=== PATIENT | female | born 2000 | race Caucasian/White ===

== ENCOUNTER → 2022-10-18 | Outpatient (CLI) | payer BC, MEDICAID, SELFPAY ==
[2022-10-18 15:29] LABS: hCG Titer Quant., Serum 391 mIU/mL (1-3)
== END | disposition home or self-care (01) ==
PROVIDERS: PCP Nurse Practitioner Family; Visit Provider Obstetrics & Gynecology
DX: N91.2 Amenorrhea, unspecified (principal)
CPT/HCPCS: 84702

== ENCOUNTER → 2025-01-28 | Outpatient (CLI) | payer MEDICAID, SELFPAY ==
--- NOTE | 2025-01-28 08:52 | US_ITS ---
PROCEDURE: TRANSVAGINAL W/PREG US 01/28/2025 REASON FOR EXAM: DATING TECHNIQUE: High resolution obstetric ultrasound performed using a 2D transducer. Standard views obtained, including biometry, anatomy survey, and Doppler studies. FINDINGS Transvaginal imaging Single live intrauterine measuring 9 weeks and 3 days by gestational sac and 8 weeks and 6 days by crown-rump length. heart tones 177 beats per minute. Yolk sac is present 6 mm No evidence of miri sac hemorrhage. The uterus measures 11 x 8.4 x 5.8 cm and appears within limits. The cervix appears closed. The right ovary measures 2.8 x 2.1 x 1.9 cm, and the left ovary measures 3.3 x 2.4 x 2.3 cm. The ovaries appear within limits. No adnexal mass identified. No free fluid seen. US/Transvaginal w/Preg US IMPRESSION: Single live intrauterine with heart tones of 177 beats per brian te. Estimated gestational age by ultrasound 9 weeks and 1 day, [facility] 09/01/2025. Est imated gestational age by LMP 9 weeks and 0 days, [facility] 09/02/2025. Reading Location: [id number]
[2025-01-28 10:43] LABS: hCG Titer Quant., Serum 117828 mIU/mL (<9 non-preg)
== END | disposition home or self-care (01) ==
PROVIDERS: PCP Nurse Practitioner Family; Referring Provider Advanced Practice Midwife; Visit Provider Advanced Practice Midwife
DX: O09.299 Supervision of pregnancy with other poor reproductive or obstetric history, unspecified trimester (principal); O99.891 Other specified diseases and conditions complicating pregnancy; N91.2 Amenorrhea, unspecified; Z3A.00 Weeks of gestation of pregnancy not specified
CPT/HCPCS: 36415; 76817; 84702

== ENCOUNTER → 2025-02-01 | Outpatient (CLI) | payer MEDICAID, SELFPAY ==
[2025-02-03 21:07] LABS: Chlamydia By Nucleic Acid AMP Negative (Negative); Gonococcus By Nucleic Acid AMP Negative (Negative)
[2025-02-04 16:54] LABS: HPV Reflexed? NOT INDICATED
== END | disposition home or self-care (01) ==
LOC: LABSPEC 17:06
PROVIDERS: PCP Nurse Practitioner Family; Referring Provider Advanced Practice Midwife; Visit Provider Advanced Practice Midwife
DX: O09.90 Supervision of high risk pregnancy, unspecified, unspecified trimester (principal); Z3A.00 Weeks of gestation of pregnancy not specified; Z12.4 Encounter for screening for malignant neoplasm of cervix
CPT/HCPCS: 87086; 87491; 87591; 88175; G0145

== ENCOUNTER → 2025-02-24 | Outpatient (CLI) | payer MEDICAID, SELFPAY ==
[2025-02-24 15:59] LABS: Absolute Lymphocyte Count 1.15 X10^3/uL (0.83-4.51); Absolute Neutrophil Count 5.8 X10^3/uL (2.0-7.7); Basophil# 0.04 X10^3/uL; Basophil% 0.5 % (0-1); Eosinophil# 0.19 X10^3/uL; Eosinophils% 2.4 % (0-5); Hemoglobin 11.7 g/dL (12.0-15.0); Lymphocyte # 1.15 X10^3/ul (0.83-4.51); Lymphocyte % 14.7 % (19-41); Mean Corp Hgb Conc 33.4 g/dL (32-36); Mean Corpuscular Volume 83.7 fL (81-99); Mean Platelet Vol. 10.7 fl (6.2-12.0); Monocyte# 0.62 X10^3/uL; Monocyte% 7.9 % (0-10); NRBC Flagged by Analyzer 0 % (0-5); Neutrophil # 5.77 X10^3/uL (2.7-7.7); Platelet Count 207 K/mm3 (150-450); RBC Distribution Width CV 14.5 % (11.6-14.6); RBC Distribution Width SD 44.3 fl (35.1-43.9); Red Blood Count 4.18 M/mm3 (4.2-5.4); White Blood Count 7.8 K/mm3 (4.4-11.0)
[2025-02-24 16:54] LABS: HIV Nonreactive (Nonreactive); Hepatitis B Surface Antigen Nonreactive (Nonreactive); Hepatitis C Antibody Nonreactive (Nonreactive); Rubella IgG REAC (Nonreactive); Syphilis Antibodies Nonreactive (Nonreactive)
== END | disposition home or self-care (01) ==
PROVIDERS: Advanced Practice Midwife; PCP Nurse Practitioner Family; Referring Provider Obstetrics & Gynecology; Visit Provider Obstetrics & Gynecology
DX: O09.90 Supervision of high risk pregnancy, unspecified, unspecified trimester (principal); Z3A.00 Weeks of gestation of pregnancy not specified
CPT/HCPCS: 36415; 85025; 86703; 86762; 86780; 86803; 86850; 86900; 86901; 87340

== ENCOUNTER 2025-05-07 18:10 | Outpatient (CLI) | payer MEDICAID, SELFPAY ==
--- OUTSIDE RECORDS SUMMARY | 2025-05-07 18:17 | XMS RPT_ITS | CCD ---
Author Organization [facility] Care Team Providers Care Performance Improvement Manager Name Role Phone Keara Mckenzie Unavailable Unavailable None, No PCP Unavailable Unavailable Valencia Khanna Unavailable Unavailable Unavailable Radha Cary Unavailable Keara Mckenzie Unavailable Radha Cary Unavailable Unavailable William Cerda Unavailable Unavailrabia e Keara Mckenzie Unavailable Emily Claros Unavailable Unavailable Jose Delgado Unavailable Hudec, Stephanie Unavailable Unavailable Moomaw, Taqueria I Unavailable Unavailable Hudcharli, Stephanie Attending Unavailable BRANDY CARY RADHA MARY Primary Care Unavailable BRANDY CARY RADHA MARY Primary Care Unavailable DO WILLIAM CERDA Attending Unava ilable BRANDY CARYIDI MARY Primary Care Unavailable Jonah, Dr. Keara Damon Attending Unavailabl e Jonah, Dr. Keara Damon Referring Unavailabl e Buster, Ms. Diaz Attending Unavail able BRANDY CARY RADHA MARY Primary Care Unavailable Hudec, Stephanie Attending Unavailable BRANDY CARY RADHA MARY Primary Care Unavailable Moomaw, MrSirisha Meng Victor M Attending Unavailable BRANDY CARY RADHA MARY Primary Care Unavailable Mankelsie, Ms. Diaz Attending Unavail able BRANDY CARY RADHA MARY Primary Care Unavailable Luis Daniel MANAGER SECURITY-Radha NAVA Primary Care Provider Radha Cary Primary Care Unavailable Radha Cary Attending Unavailable Radha Cary Referring Unavailable Radha Cary Primary Care Unavailable DO KEARA MCKENZIE Attending Unavailable DO KEARA MCKENZIE Referring Unavailable Danny, Dr. Jose Olson Attending Unavai hawa Delgado, Dr. Jose Olson Referring Unavai labadán Cary, Radha Primary Care Unavailable Cary, Radha Primary Care Unavailable Danny, Dr. Jose Olson Referring Unavai lable Danny, Dr. Jose Olson Attending Unavai lable Luis Daniel, Radha Primary Care Unavailable Danny, Dr. Jose Olson Attending Unavai labadán Delgado, Dr. Jose Olson Referring Unavai labadán Cary, Radha Primary Care Unavailable Danny, Dr. Jose Olson Attending Unavai labadán Cary, Radha Primary Care Unavailable Danny, Dr. Jose Olson Attending Unavai lable Cary, Radha Primary Care Unavailable JONAH, DO KEARA DAMON Attending Unavailable JONAH, DO KEARA DAMON Referring Unavailable Cary, Radha Primary Care Unavailable Self, Referral Referring Unavailable Radha Cary Attending Unavailable Cary, Radha Referring Unavailable Cary, Radha Primary Care Unavailable Cary, Radha Attending Unavailable Cary, Radha Primary Care Unavailable Radha Cary Attending Unavailable Forrest Mohr MD Primary Care Provider [phone] Luis Daniel MANAGER SECURITY-CORE LAYER MACHINE OPERATOR, Radha Primary Care Provider 1( [phone] Forrest Mohr MD Unavailable [phone] Forrest Mohr MD Primary Care Provider Luis Daniel CORE LAYER MACHINE OPERATOR, Radha Primary Care Provider Forrest Mohr MD Unavailable [phone] Forrest Mohr MD Primary Care Provider Luis Daniel PILE HEADER-C, Radha Primary Care Provider Luis Daniel PILE HEADER-C, Radha Referring Provider Magen MONROE, Dr. Robledo Attending Provider Tamar Chan RN Attending Provider UnavailMariajose Sears CNM Attending Provider [phone] Mariajose Ayala CNM Referring Provider [phone] FORREST MOHR Primary Care Unavailable FORREST MOHR Attending Unavailable TAVALLAEE, FORREST M Referring Unavailable TAVALLAEE, FORREST M Primary Care Unavailable TAVALLAEE, FORREST M Primary Care Unavailable FILEMON RUIZ Attending Unavailable LISAE, FORREST M Primary Care Unavailable JOSE DELGADO Attending Unavailable LISAE, FORREST M Primary Care Unavailable RUPADESTINY LORENZA M Attending Unavailable LISAE, FORREST M Primary Care Unavailable Dr. Colleen Villalobos DO Attending Provider Dr. Colleen Villalobos DO Referring Provider Aisha Mendoza Attending Provider COLLEEN ROSALES Referring Unavailab COLLEEN Monge Attending Unavailab le LUIS DANIEL, RADHA K Primary Care Unavailable Cary, Radha Primary Care Unavailable Cary, Radha Referring Unavailable Meena Us Attending Unavailable Cary, Radha Primary Care Unavailable Cary, Radha Referring Unavailable Mariajose Ayala Attending Unavailable Cary, Radha Referring Unavailable Cary, Radha Primary Care Unavailable Colleen Villalobos Attending Unavailabl e Cary, Radha Referring Unavailable Cary, Radha Primary Care Unavailable Vande Colleen Dillard Attending Unavailabl e Cary, Radha Referring Unavailable Cary, Radha Primary Care Unavailable Aisha Vitale Attending Unavailable Mariajose Ayala Referring Unavailable Cary, Radha Primary Care Unavailable Mariajose Ayala Attending Unavailable Mariajose Ayala Referring Unavailable Cary, Radha Primary Care Unavailable Mariajose Ayala Attending Unavailable Mariajose Ayala Referring Unavailable Cary, Radha Primary Care Unavailable Mariajose Ayala Attending Unavailable Cary, Radha Primary Care Unavailable Colleen Villalobos Attending Unavailabl e Colleen Villalobos Referring Unavailabl Mariajose Kathleen Attending Unavailable Cary, Radha Referring Unavailable Cary, Radha Primary Care Unavailable Cary, Radha Primary Care Unavailable Tamar Chan Attending Unavailable Medications Current Medications Medication Drug Class(es) Dates Sig (Normalized) Sig (Original) [id number] 200 actuat albuterol 0.09 mg/actuat metered dose inhaler (10 sources) beta2-Adrenergic Agonist Start: 02-24-2025 Albuterol Sulfate (Ventolin Hfa) 90 mcg/actuation HFA aerosol inhaler Active 2 NMA INHALATION EVERY 4-6 HOURS as needed for shortness of breath or wheezing 6.7 0 February 24, 2025 12:00am take 1 puff(s) by in halation every six hours for wheezing albuterol sulfate (Proair Digihaler) 90 mcg/actuation aero powdr breath act w/sensor inhaler Inhale 1 puff every 6 hours if needed for wheezing. Active amoxicillin 875 mg / clavulanate 125 mg oral tablet (4 sources) Penicillin-class Antibacterial Start: 01-30-2024 End: 02-09-2024 take 1 tablet by mouth every twelve hours amoxicillin-pot clavulanate (Augmentin) 875-125 mg tablet Indications: Colitis Take 1 tablet by mouth every 12 hours for 10 days. 20 tablet 01/30/2024 02/09/2024 Active Start: 08-23-2022 End: 09-01-2022 take 1 tablet by mouth every twelve hours amoxicillin-clavulanate 875 mg-125 mg or al tablet ; 1 tab(s) orally every 12 hours Quantity: 20 Refills: 0 Ordered: 23-Aug-2022 Emily Claros Start: 23-Aug-2022 End: 01-Sep-2022 Generic Substitution Allowed Comments: Finish all this medication unless otherwise directed by prescriber.Take with food or milk. Comment on above: Finish all this medi cation unless otherwise directed by prescriber.Take with food or milk. calcium chloride 0.0014 meq/ml / potassium chloride 0.004 meq/ml / sodium chloride 0.103 meq/ml / sodium lactate 0.028 meq/ml injectable solution (1 source) Start: take 20 mL intravenously every hour 20 mL/hr, intravenous, Continuous, Starting on [place] 03/05/24 at 0745, Preprocedure cephalexin 500 mg oral capsule (4 sources) Cephalosporin Antibacterial Start: End: take 1 capsule by mouth four times daily cephalexin (Keflex) 500 mg capsule Indications: Urinary tract infection without hematuria, site unspecified Take 1 capsule (500 mg) by mouth 4 times a day for 5 days. 20 capsule 01/31/2025 02/05/2025 Active Start: 07-06-2022 End: 07-12-2022 take 1 tablet by mouth twice daily cephalexin 500 mg oral tablet ; 1 tab(s) orally 2 times a day Quantity: 14 Refills: 0 Ordered: 05-Jul-2022 William Cerda Start: 05-Jul-2022 End: 11-Jul-2022 Generic Substitution Allowed Comments: Finish all this medication unless otherwise directed by prescriber. Comment on above: Finish all this medi cation unless otherwise directed by prescriber. dicyclomine hydrochloride 20 mg oral tablet (5 sources) Anticholinergic Start: 01-30-20 24 End: 02-09-20 24 take 1 tablet by mouth four times daily before mealtime dicyclomine (Bentyl) 20 mg tablet Indications: Colitis Take 1 tablet (20 mg) by mouth 4 times a day before meals for 10 days. 40 tablet 01/30/2024 02/09/2024 Active Start: 07-06-2022 End: 08-04-2022 take 1 tablet by mouth four times daily dicyclomine 20 mg oral tablet ; 1 tab(s) orally 4 times a day Quantity: 20 Refills: 0 Ordered: 05-Jul-2022 William Cerda Start: 05-Jul-2022 End: 03-Aug-2022 Generic Substitution Allowed Comments: May cause drowsiness. Alcohol may intensify this effect. Use care when operating dangerous machinery. Comment on above: May cause drowsiness . Alcohol may intensify this effect. Use care when operating dangerous machinery. doxylamine succinate 25 mg oral tablet (7 sources) Start: 5 End: take 1 tablet by mouth at bedtime as needed Doxylamine Succinate (Unisom (Doxylamine)) 25 mg tablet Active 25 mg PO AT BEDTIME as needed January 22, 2025 12:00am Start: 04-16-2019 take 1 tablet by william th at bedtime SM Sleep Aid 25 MG Oral Tablet TAKE 1 TABLET BY MOUTH AT BEDTIME Quantity: 30 Refills: 0 Start : 16-Apr-2019 Active doxylamine succinate 10 mg / pyridoxine hydrochloride 10 mg delayed release oral tablet (1 source) Start: 01-13-2025 take 1 tablet by mouth once daily doxylamine-pyridoxine, vit B6, 10-10 mg tablet,delayed release (DR/EC) Indications: Nausea and vomiting in prior to 22 weeks gestation Take 1 tablet by mouth once daily. 90 tablet 1 01/13/2025 Active escitalopram 20 mg oral tablet (20 sources) Serotonin Reuptake Inhibitor Start: 02-07-2023 End: 10-29-2023 take 1 tablet by mouth once daily escitalopram (Lexapro) 20 mg tablet Indications: Generalized anxiety disorder Take 1 tablet (20 mg) by mouth once daily. 90 tablet 3 10/29/2023 Active Start: 01-23-2023 escitalopram ( Lexapro) 10 mg tablet Indications: Generalized anxiety disorder Take 1/2 tablet for 1 week and then take 1 tablet daily. 30 tablet 0 01/23/2023 Active Start: 03-07-2022 End: 01-23-2023 take 1 tablet by mouth once daily Escitalopram Oxalate 20 MG Oral Tablet TAKE ONE TABLET BY MOUTH ONE TIME DAILY Quantity: 30 Refills: 3 Ordered: 06-Aug-2022 Radha Shaikh Start : 07-Mar-2022 Active Start: 03-07-2022 take 1 tablet by william th once daily Escitalopram Oxalate 10 MG Oral Tablet TAKE 1 TABLET DAILY. Quantity: 30 Refills: 2 Ordered: 04-Apr-2022 Radha Shaikh Start : 07-Mar-2022 Active Start: 03-07-2022 take 1 tablet by william th once daily Escitalopram Oxalate 5 MG Oral Tablet TAKE 1 TABLET DAILY. Quantity: 30 Refills: 0 Ordered: 07-Mar-2022 Radha Shaikh Start : 07-Mar-2022 Active fluticasone propionate 0.05 mg/actuat metered dose nasal spray (1 source) Corticosteroid Start: 01-12-2025 fluticasone (Flonase) 50 mcg/actuation nasal spray 01/12/2025 Active predniSONE 50 mg oral tablet (2 sources) Start: 01-30-2024 End: 02-06-2024 take 1 tablet by mouth once daily predniSONE (Deltasone) 50 mg tablet Indications: Colitis Take 1 tablet (50 mg) by mouth once daily for 7 days. 7 tablet 01/30/2024 02/06/2024 Active Multivitamins Folic Acid 0.4 mg oral tablet (1 source) take 1 tablet by mouth once daily Multivitamins Folic Acid 0.4 mg oral tablet ; 1 tab(s) orally once a day Quantity: 0 Refills: 0 Ordered: 29-Sep-2019 Darcy Mejia Status: Other Generic Substitution Allowed Vit No.[id number] ( Vitamin) 27 mg iron- 800 mcg tablet (5 sources) Start: 01-05-2025 Vit No.[id number] ( Vitamin) 27 mg iron- 800 mcg tablet Active 1 {tbl} PO daily January 05, 2025 12:00am vit,bruce [id number] 27 mg iron- 1 mg tablet (3 sources) Start: 06-08-2024 End: 06-08-2025 take 1 tablet by mouth once daily vit,bruce [id number]-vepdz 27 mg iron- 1 mg tablet Indications: Amenorrhea Take 1 tablet by mouth once daily. 90 each 3 06/08/2024 06/08/2025 Active vitamin, iron-folic, ( Vitamin) 27 mg iron-800 mcg folic acid tablet (3 sources) Start: 12-22-2024 take 1 tablet by mouth once daily vitamin, iron-folic, ( Vitamin) 27 mg iron-800 mcg folic acid tablet Indications: test positive ([facility]) Take 1 tablet by mouth once daily. 90 tablet 3 12/22/2024 Active vitamin , iron-folic, ( Vitamin) 27 mg iron-800 mcg folic acid tablet Take by mouth. Active promethazine hydrochloride 12.5 mg oral tablet (3 sources) Phenothiazine Start: 03-25-2025 take 1 tablet by mouth every six hours as needed for nausea and vomiting Promethazine 12.5 mg tablet Active 12.5 mg PO EVERY 6 HOURS as needed for nausea and vomiting 60 2 March 25, 2025 12:00am Start: 06-08-2024 End: 09-06-2024 take 1 tablet by mouth every six hours for nausea promethazine (Phenergan) 25 mg tablet Indications: Amenorrhea Take 1 tablet (25 mg) by mouth every 6 hours if needed for nausea or vomiting. 20 tablet 6 06/08/2024 09/06/2024 Active pyridoxine hydrochloride 25 mg oral tablet (1 source) Start: 01-13-2025 End: 04-13-2025 take 1 tablet by mouth every eight hours pyridoxine (Vitamin B-6) 25 mg tablet Indications: Nausea and vomiting in prior to 22 weeks gestation Take 1 tablet (25 mg) by mouth every 8 hours. 90 tablet 1 01/13/2025 04/13/2025 Active vitamin b6 10 mg oral tablet (6 sources) Start: 01-22-2025 take 1 tablet by mouth once daily Pyridoxine (Vitamin B6) 10 mg tablet Active 10 mg PO daily January 22, 2025 12:00am Start: 04-16-2019 take 1 tablet by william twice daily Vitamin B-6 50 MG Oral Tablet TAKE 1 TABLET BY MOUTH TWICE DAILY Quantity: 60 Refills: 0 Start : 16-Apr-2019 Active Completed/Discontinued Medications Medication Drug Class(es) Dates Sig (Normalized) Sig (Original) azithromycin 500 mg oral tablet (2 sources) Macrolide Antimicrobial Start: 01-22-2022 take 2 tablets by mouth once Azithromycin 500 MG Oral Tablet TAKE 2 TABLET ONCE Quantity: 2 Refills: 0 Ordered: 22-Jan-2022 Keara Mckenzie DO Start : 22-Jan-2022 Active cefTRIAXone 1000 mg injection (1 source) Cephalosporin Antibacterial Start: 01-31-2025 End: 01-31-2025 1 g, intravenous, at 100 mL/hr, Administer over 30 Minutes, Once, On [place] 01/31/25 at 2034, For 1 dose, premix bag, Suspected Indication (Select all that apply): Urinary Tract Infection, Type of Therapy: Definitive, No Cultures, Type of Urinary Tract Infection: Uncomplicated, Indications: Urinary Tract Infection Depo-Provera 150 MG/ML Intramuscular Suspension (1 source) Start: 01-19-2022 Depo-Provera 150 MG/ML Intramuscular Suspension 0 SUSP IM Quantity: 0 Refills: 0 Ordered: 19-Jan-2022 Keara Mckenzie DO Start : 19-Jan-2022 Complete 1 ml dexamethasone phosphate 4 mg/ml injection (2 sources) Corticosteroid Start: 01-30-2024 End: 01-30-2024 dexAMETHasone (Decadron) injection 4 mg Start: 01-30-2024 End: 01-30-2024 inject 4 mg by intramuscular injection once 4 mg, intramuscular, Once, On [place] 01/30/24 at 1630, For 1 dose dicloxacillin 500 mg oral capsule (4 sources) Penicillin-class Antibacterial Start: 11-05-2022 End: 01-23-2023 take 1 capsule by mouth four times daily Dicloxacillin Sodium 500 MG Oral Capsule TAKE 1 CAPSULE 4 TIMES DAILY. Quantity: 40 Refills: 0 Ordered: 05-Nov-2022 Jose Delgado MD Start : 05-Nov-2022 Active docusate sodium 100 mg oral capsule (5 sources) Start: 09-21-2019 Docu Soft 100 MG Oral Capsule TAKE ONE CAPSULE BY MOUTH NEEDED FOR CONSTIPATION Quantity: 30 Refills: 6 Keara Mckenzie DO Start : 21-Sep-2019 Active ferrous sulfate 325 mg oral tablet (6 sources) Start: 09-21-2019 take 1 tablet by mouth once daily Ferrous Sulfate 325 (65 Fe) MG Oral Tablet TAKE 1 TABLET DAILY DIRECTED. Quantity: 30 Refills: 11 Keara Mckenzie DO Start : 21-Sep-2019 Active take 1 tablet by mouth once sherman y ferrous sulfate 75 mg (15 mg elemental iron) oral tablet ; 1 tab(s) orally once a day Quantity: 0 Refills: 0 Ordered: 29-Sep-2019 Darcy Mejia Status: Discontinued Generic Substitution Allowed ibuprofen 600 mg oral tablet (2 sources) Nonsteroidal Anti-inflammatory Drug Start: 05-02-2024 End: 07-06-2024 take 1 tablet by mouth three times daily ibuprofen 600 mg tablet Indications: Contusion of left foot, initial encounter Take 1 tablet (600 mg) by mouth 3 times a day. 30 tablet 05/02/2024 07/06/2024 Discontinued (Med List Cleanup) Start: 11-24-2019 take 1 tablet by william th every six hours ibuprofen 600 mg oral tablet ; 1 tab(s) orally every 6 hours Quantity: 40 Refills: 0 Ordered: 24-Nov-2019 Keara Mckenzie Start: 24-Nov-2019 Status: Other Generic Substitution Allowed iohexol (OMNIPaque) 350 mg iodine/mL solution 75 mL (1 source) Start: 01-30-2024 End: 01-30-2024 75 mL, intravenous, Once in imaging, Starting on [place] 01/30/24 at 1230, For 1 dose medroxyPROGESTERone acetate 10 mg oral tablet (5 sources) Progestin Start: 08-13-2022 take 1 tablet by mouth once daily medroxyPROGESTERone Acetate 10 MG Oral Tablet TAKE 1 TABLET DAILY. Quantity: 10 Refills: 0 Ordered: 13-Aug-2022 Jose Delgado MD Start : 13-Aug-2022 Active Start: 07-11-2022 take 1 tablet by william th once daily medroxyPROGESTERone Acetate 5 MG Oral Tablet TAKE 1 TABLET DAILY. Quantity: 10 Refills: 0 Ordered: 11-Jul-2022 [id number] DO, Keara Start : 11-Jul-2022 Active Start: 01-08-2020 inject 1 mL by intra muscular injection every three months MedroxyPROGESTERone Acetate 150 MG/ML Intramuscular Suspension INJECT 1 ML INTRAMUSCULARLY ONCE EVERY 3 MONTHS. Quantity: 1 Refills: 3 Keara Mckenzie DO Start : 08-Jan-2020 Active Milliliter Meperidine (1 source) Opioid Agonist Start: 03-05-2024 End: 03-05-2024 intravenous, As needed, Starting on [place] 03/05/24 at 0727, Intraprocedure methylPREDNISolone (1 source) Corticosteroid Depo-Medrol (PF) SUSP Quantity: 0 Refills: 0 Ordered: 07-Mar-2022 DO Active 2 ml midazolam 5 mg/ml injection (1 source) Benzodiazepine Start: 03-05-2024 End: 03-05-2024 intravenous, Administer over 5 Minutes, As needed, Starting on [place] 03/05/24 at 0727, Intraprocedure 1 ml morphine sulfate 4 mg/ml prefilled syringe (1 source) Opioid Agonist Start: 01-30-2024 End: 01-30-2024 4 mg, intravenous, Once, On [place] 01/30/24 at 1120, For 1 dose nitrofurantoin, macrocrystals 25 mg / nitrofurantoin, monohydrate 75 mg oral capsule (1 source) Nitrofuran Antibacterial Start: 10-12-2019 take 1 capsule by mouth twice daily Nitrofurantoin Monohyd Macro 100 MG Oral Capsule TAKE 1 CAPSULE TWICE DAILY. Quantity: 14 Refills: 0 Keara Mckenzie DO Start : 12-Oct-2019 Active No Reported Medications (1 source) No Reported Medications Quantity: 0 Refills: 0 Ordered: 16-Jan-2022 DO Active 2 ml ondansetron 2 mg/ml injection (9 sources) Serotonin-3 Receptor Antagonist Start: 01-31-2025 End: 01-31-2025 4 mg, intravenous, Once, On [place] 01/31/25 at 1845, For 1 dose, When administering via IV Push, administer over 3-5 minutes. Start: 01-22-2025 take 1 tablet by william th every six hours as needed Ondansetron Hcl 4 mg tablet Active 4 mg PO EVERY 6 HOURS as needed January 22, 2025 12:00am Start: 01-30-2024 End: 02-06-2024 take 1 tablet by mouth every eight hours for nausea ondansetron ODT (Zofran-ODT) 8 mg disintegrating tablet Indications: Colitis Take 1 tablet (8 mg) by mouth every 8 hours if needed for nausea or vomiting for up to 7 days. 20 tablet 01/30/2024 02/06/2024 Active Start: 01-30-2024 End: 01-30-2024 4 mg, intravenous, Once, On [place] 01/30/24 at 1125, For 1 dose, When administering via IV Push, administer over 3-5 minutes. Vitamin Plus Low Iron 27 mg iron- 1 mg tablet (1 source) End: 01-23-2023 take 1 tablet by mouth once daily Vitamin Plus Low Iron 27 mg iron- 1 mg tablet Take 1 tablet by mouth once daily. 0 01/23/2023 Discontinued (Therapy completed) Vitamin Plus Low Iron 27-1 MG Oral Tablet (3 sources) Start: 07-11-2022 take 1 tablet by mouth once daily Vitamin Plus Low Iron 27-1 MG Oral Tablet TAKE 1 TABLET DAILY. Quantity: 30 Refills: 11 Ordered: 11-Jul-2022 [id number] DO, Brett Start : 11-Jul-2022 Active Start: 07-11-2022 take 1 tablet by william th once daily Vitamin Plus Low Iron 27-1 MG Oral Tablet TAKE 1 TABLET DAILY. Quantity: 30 Refills: 11 Ordered: 11-Jul-2022 Jonah DO, Keara Start : 11-Jul-2022 Active Vitamin Plus Low Iron 27-1 MG TABS (3 sources) Start: 07-11-2022 Vitam in Plus Low Iron 27-1 MG TABS TAKE 1 TABLET DAILY. Quantity: 30 Refills: 11 Ordered: 11-Jul-2022 [id number] DO, Keara Start : 11-Jul-2022 Active Vitamins TABS (5 sources) Vitamin s TABS Refills: 0 DO Active Vitamin s TABS Refills: 0 Active sertraline 25 mg oral tablet (2 sources) Serotonin Reuptake Inhibitor Start: 12-17-2022 End: 01-23-2023 take 1 tablet by mouth once daily sertraline (Zoloft) 25 mg tablet Indications: Anxiety , Persistent depressive disorder Take 1 tablet (25 mg) by mouth once daily. 30 tablet 0 12/17/2022 01/23/2023 Discontinued (Side effects) Start: 01-08-2020 take 1 tablet by william once daily Sertraline HCl - 50 MG Oral Tablet take 1 tablet by mouth once daily Quantity: 30 Refills: 3 Corrie Mckenzie DOtt Start : 08-Jan-2020 Active 1000 ml sodium chloride 9 mg/ml injection (4 sources) Start: 01-31-2025 End: 01-31-2025 1,000 mL, intravenous, at 99 9 mL/hr, Administer over 1 Hours, Once, On 01/31/25 at 1845, For 1 dose Start: 01-30-2024 End: 01-30-2024 take 150 mL intravenously every hour 150 mL/hr, intravenous, Continuous, Starting on [place] 01/30/24 at 1120 sulfamethoxazole 800 mg / trimethoprim 160 mg oral tablet (1 source) Dihydrofolate Reductase Inhibitor Antibacterial, Sulfonamide Antimicrobial Start: 08-31-2020 End: 09-04-2020 take 1 tablet by mouth twice daily Bactrim DS 800 mg-160 mg oral tablet ; 1 tab(s) orally 2 times a day Quantity: 10 Refills: 0 Ordered: 30-Aug-2020 Kate Arrington Start: 30-Aug-2020 End: 03-Sep-2020 Status: Other Generic Substitution Allowed Comments: Avoid prolonged or excessive exposure to direct and/or artificial sunlight while taking this medication.Finish all this medication unless otherwise directed by prescriber.Medication should be taken with plenty of water. Comment on above: Avoid prolonged or e xcessive exposure to direct and/or artificial sunlight while taking this medication.Finish all this medication unless otherwise directed by prescriber.Medication should be taken with plenty of water. traMADol hydrochloride 50 mg oral tablet (2 sources) Opioid Agonist Start: 08-23-2022 End: 08-24-2022 take 1 tablet by mouth every six hours Ultram 50 mg oral tablet ; 1 tab(s) orally every 6 hours Quantity: 6 Refills: 0 Ordered: 23-Aug-2022 Emily Claros Start: 23-Aug-2022 End: 24-Aug-2022 Generic Substitution Allowed Comments: Caution federal law prohibits the transfer of this drug to any person other than the person for whom it was prescribed.May cause drowsiness. Alcohol may intensify this effect. Use care when operating dangerous machinery.Obtain medical advice before taking any non-prescription drugs as some may affect the action of this medication. Comment on above: Caution federal law prohibits the transfer of this drug to any person other than the person for whom it was prescribed.May cause drowsiness. Alcohol may intensify this effect. Use care when operating dangerous machinery.Obtain medical advice before taking any non-prescription drugs as some may affect the action of this medication. Problems Active Problems Problem Classification Problem Date Documented Da te Episodic/Chronic Anxiety disorders (20 sources) Mixed anxiety and depressive disorder; Translations: [Anxiety state, unspecified] Onset: 01-01-2023 01-23-2023 Chronic Comment on above: 03/07/22: GAD7: severe anxiety; was on Lexapro - sto pped awhile ago Calculus of urinary tract (2 sources) Personal history of urinary calculi; Translations: [Kidney stone] Onset: 10-22-2022 01-30-2024 Episodic Contraceptive and procreative management (20 sources) Patient encounter status; Translations: [Other general counseling and advice on contraceptive management] Resolved: 10-17-2022 Episodic Deficiency and other anemia (4 sources) Anemia; Translations: [Anemia] Episodic Diabetes mellitus without complication (4 sources) Abnormal glucose tolerance test; Translations: [Abnormal GTT (glucose tolerance test)] Episodic Fever of unknown origin (1 source) Fever, unspecified; Translations: [Fever, unspecified] Onset: 11-06-2022 Episodic Gastrointestinal hemorrhage (1 source) Rectal hemorrhage; Translations: [Hemorrhage of anus and rectum] 01-30-2024 Episodic Headache; including migraine (1 source) Headache; including migraine; Translations: [Headache, unspecified] Onset: 08-23-2022 Hemorrhage during ; abruptio placenta; placenta previa (7 sources) Threatened miscarriage; Translations: [Threatened , unspecified as to episode of care or not applicable] Onset: 10-22-2022 10-21-2022 Episodic Comment on above: Rpt US 28 wk to rech garrett cervix; pelvic rest Menstrual disorders (20 sources) Amenorrhea; Translations: [Absence of menstruation] Onset: 01-01-2023 Resolved: 10-29-2023 10-18-2022 Chronic Mood disorders (20 sources) Severe major depression, single episode, without psychotic features; Translations: [Major depressive affective disorder, single episode, severe, without mention of psychotic behavior] Onset: 01-01-2023 01-23-2023 Chronic Comment on above: 03/07/22 PHQ9 Se eduardo depression; Mood disorders (2 sources) Mood disorders; Translations: [Depression, unspecified] Onset: 12-27-2022 Nonspecific chest pain (1 source) Chest pain, unspecified; Translations: [Chest pain, unspecified] Onset: 11-06-2022 Episodic Other aftercare (1 source) 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; Translations: [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] Onset: 12-27-2022 Episodic Other complications of (2 sources) Other specified related conditions, first trimester; Translations: [Oth related conditions, first trimester] Onset: 10-19-2022 Episodic Other complications of (1 source) Morning sickness; Translations: [Mild hyperemesis gravidarum] 01-31-2025 Episodic Other complications of (20 sources) H/O: miscarriage; Translations: [Supervision of with other poor reproductive or obstetric history, unspecified trimester] 01-22-2025 Episodic Comment on above: x2 Other complications of (20 sources) High risk ; Translations: [Supervision of high risk , unspecified, unspecified trimester] 01-22-2025 Episodic Comment on above: , MYORN 09/02/25, P C: ASIM Zelaya: Johny PRR , YMRON 5, PC: Nathalie BF: Johny Other complications of (2 sources) Mild hyperemesis gravidarum; Translations: [Mild hyperemesis gravidarum ([facility] Onset: 01-31-2025 Episodic Other complications of (2 sources) Vomiting of , unspecified; Translations: [Vomiting of , unspecified] Onset: 01-13-2025 Episodic Other complications of (1 source) Supervision of with other poor reproductive or obstetric history, unspecified trimester; Translations: [Supervision of with other poor reproductive or obstetric history, unspecified trimester] Onset: 04-23-2025 Episodic Other complications of (1 source) Supervision of high risk , unspecified, second trimester; Translations: [Supervision of high risk , unspecified, second trimester] Onset: 04-23-2025 Episodic Other complications of (1 source) Supervision of high risk , unspecified, unspecified trimester; Translations: [Supervision of high risk , unspecified, unspecified trimester] Onset: 03-01-2025 Episodic Other connective tissue disease (2 sources) Muscle pain; Translations: [Myalgia and myositis, unspecified] 11-06-2022 Episodic Other connective tissue disease (2 sources) Myalgia, unspecified site; Translations: [Myalgia, unspecified site] Onset: 11-06-2022 Episodic Other endocrine disorders (5 sources) Menarche; Translations: [History of Menarche] Chronic Other female genital disorders (2 sources) Vaginal bleeding; Translations: [Abnormal uterine and vaginal bleeding, unspecified] 10-30-2024 Chronic Other female genital disorders (2 sources) Abnormal uterine and vaginal bleeding, unspecified; Translations: [Abnormal uterine and vaginal bleeding, unspecified] Onset: 10-30-2024 Chronic Other gastrointestinal disorders (1 source) Acute diarrhea 12-27-2022 Episodic Other nutritional; endocrine; and metabolic disorders (10 sources) Body mass index less than 20; Translations: [Body Mass Index less than 19, adult] Episodic Other and delivery including normal (20 sources) Primigravida; Translations: [ care status] Onset: 07-06-2024 Resolved: 10-17-2022 07-06-2024 Episodic Comment on above: accepts genetic/aguilar ier testing NIPT low risk Residual codes; unclassified (2 sources) Gestation period, 30 weeks; Translations: [30 weeks gestation of ] Episodic Residual codes; unclassified (2 sources) Gestation period, 33 weeks; Translations: [33 weeks gestation of ] Episodic Residual codes; unclassified (17 sources) H/O: ; Translations: [Personal history of other genital system and obstetric disorders] Episodic Comment on above: 11/23/2019-39 WEEKS, FEMALE, #6 12OZ, VAGINAL; Residual codes; unclassified (1 source) Personal history of other complications of , childbirth and the puerperium; Translations: [Personal history of comp of preg, chldbrth and the puerp] Onset: 11-06-2022 Episodic Residual codes; unclassified (1 source) 8 weeks gestation of ; Translations: [8 weeks gestation of ] Onset: 10-22-2022 Episodic Residual codes; unclassified (1 source) 21 weeks gestation of ; Translations: [21 weeks gestation of ] Onset: 04-23-2025 Episodic Residual codes; unclassified (1 source) 12 weeks gestation of ; Translations: [12 weeks gestation of ] Onset: 02-24-2025 Episodic Substance-related disorders (1 source) Nicotine dependence, other tobacco product, uncomplicated; Translations: [Nicotine dependence, other tobacco product, uncomplicated] Onset: 08-23-2022 Chronic Unclassified (2 sources) 6 MO CK 04-04-2022 Comment on above: 6 MO CK Unclassified (1 source) 2 WK FU 06-27-2022 Comment on above: 2 WK FU Unclassified (2 sources) LEFT SIDE OF FACE IS SWOLLEN 08-23-2022 Comment on above: LEFT SIDE OF FACE IS SWOLLEN Unclassified (1 source) Pain, dental 08-23-2022 Unclassified (2 sources) VAG BLEED (8WEEKS PREG) 10-21-2022 Comment on above: VAG BLEED (8WEEKS DE EG) Unclassified (1 source) NEW OB EST PT- LMP 08/2510-08-2022 Comment on above: NEW OB EST PT- LMP 1 10/25 Unclassified (2 sources) CHILLS, BODY ACHES, WEAK 11-06-2022 Comment on above: CHILLS, BODY ACHES, WEAK Unclassified (3 sources) OVERDOSE 12-27-2022 Comment on above: OVERDOSE Unclassified (1 source) Examination 12-27-2022 Unclassified (1 source) Contact with and (suspected) exposure to COVID-19; Translations: [Contact with and (suspected) exposure to COVID-19] Onset: 11-06-2022 Unclassified (1 source) Oth diseases and conditions complicating ; Translations: [Oth diseases and conditions complicating ] Onset: 10-22-2022 Urinary tract infections (7 sources) Urinary tract infectious disease; Translations: [Urinary tract infection, site not specified] Onset: 07-06-2022 07-06-2022 Episodic Past or Other Problems Problem Classification Problem Date Documented Date Episodic/Chronic Abdominal pain (20 sources) Pain in pelvis; Translations: [Pelvic and perineal pain] Onset: 07-04-2022 Resolved: 01-23-2023 07-05-2022 Episodic Comment on above: ABD PAIN Bacterial infection; unspecified site (20 sources) Chlamydial infection; Translations: [Unspecified chlamydial infection] Onset: 01-01-2023 Resolved: 01-23-2023 01-23-2023 Episodic Disorders of teeth and jaw (3 sources) Toothache; Translations: [Unspecified disorder of the teeth and supporting structures] Onset: 08-23-2022 08-23-2022 Episodic Genitourinary symptoms and ill-defined conditions (20 sources) Blood in urine; Translations: [H/O: hematuria] Resolved: 10-22-2019 Episodic Noninfectious gastroenteritis (5 sources) Colitis; Translations: [Noninfective gastroenteritis and colitis, unspecified] Onset: 03-05-2024 01-30-2024 Episodic Nonmalignant breast conditions (13 sources) Nonpuerperal mastitis; Translations: [Inflammatory disease of breast] Onset: 11-06-2022 Resolved: 01-23-2023 11-06-2022 Episodic Other female genital disorders (20 sources) Abnormal uterine bleeding; Translations: [Unspecified disorders of menstruation and other abnormal bleeding from female genital tract] Onset: 01-01-2023 Resolved: 01-23-2023 01-23-2023 Chronic Other screening for suspected conditions (not mental disorders or infectious disease) (17 sources) test negative; Translations: [ examination or test, negative result] Resolved: 10-17-2022 Episodic Other skin disorders (1 source) Localized swelling, mass and lump, head; Translations: [Localized swelling, mass and lump, head] Onset: 08-23-2022 Episodic Other skin disorders (2 sources) Ingrowing nail; Translations: [Ingrowing nail] Onset: 05-02-2024 Episodic Ovarian cyst (1 source) Unspecified ovarian cyst, left side; Translations: [Unspecified ovarian cyst, left side] Onset: 07-04-2022 Episodic Poisoning by other medications and drugs (10 sources) Poisoning by unspecified drug or medicinal substance; Translations: [Drug overdose] Onset: 01-01-2023 Resolved: 01-23-2023 12-27-2022 Episodic Residual codes; unclassified (13 sources) Body mass index 20-24 - normal; Translations: [Body Mass Index between 19-24, adult] Onset: 01-23-2023 01-23-2023 Episodic Screening and history of mental health and substance abuse codes (13 sources) Mental state finding; Translations: [Other abnormal clinical findings] Resolved: 10-17-2022 Episodic Suicide and intentional self-inflicted injury (14 sources) Suicidal thoughts; Translations: [Suicidal ideation] Onset: 12-27-2022 Resolved: 01-23-2023 12-27-2022 Episodic Superficial injury; contusion (2 sources) Contusion of left foot, initial encounter; Translations: [Contusion of left foot, initial encounter] Onset: 05-02-2024 Episodic Unclassified (6 sources) Onset: 10-31-2023 Resolved: 01-30-2024 10-31-2023 NEGATED: Highlighted row has not occurred!Residual codes; unclassified (12 sources) Disease Episodic Results Test Name Value Interpretation Reference Range Facility 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 Reporton 04-23-2025 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 Report [facility]'s [address], [place] [address] OFFICE VISIT Date of Service: 04/23/25 MR#: [id number] Acct: [id number] Name: DEBI VERDUZCO Rep #: [id number] : 2000 Provider: BOB Veloz ams Age/Sex: 25/F [place] [facility] [place]: Signed Intake Vital Signs 02/01/25 13:03 03/25/25 13:34 04/23/25 10:44 04/23/25 10:49 Height 5 ft 5 in 5 ft 5 in 5 ft 5 in 5 ft 5 in Weight: 138 lb 8 oz BMI 23.0 BP 108/73 Intake Visit Reasons: 21wk ob Chief Complaint: 21 Week OB Director Of Archives Required: No Is patient in pain?: No Allergies No Known Allergies Allergy (Verified 04/23/25 10:43) Medications ???Medication ???Instructions ???Recorded ???Confirmed ???Type vits no.130-ferrous fum 1 tab PO QDAY 01/05/25 04/23/25 Hi story 27 mg iron-folic acid 800 mcg tablet ( Vitamin) doxylamine succinate 25 mg tablet 25 mg PO QHS PRN 01/22/25 5 History (Unisom (doxylamine)) ondansetron HCl 4 mg tablet 4 mg PO Q6H PRN 01/22/25 04/23/25 History pyridoxine (vitamin B6) 10 mg 10 mg PO QDAY 01/22/25 04/23/25 Hi story tablet albuterol sulfate 90 mcg/actuation 2 puff inhalation Q4-6H PRN 01/2904/23/25 Rx aerosol inhaler (Ventolin HFA) shortness of breath or wheezing #6.7 grams promethazine 12.5 mg tablet 12.5 mg PO Q6H PRN nausea and 03/0104/23/25 Rx vomiting #60 tabs Last Menstrual Period: 11/26/24 Zika: Zika virus screening: Negative : No PFSH PFSH Surgical History S/P tonsillectomy and adenoidectomy Social History adopted: No household members: significant other and children number of children: 1 current occupation: [employer] current occupational exposures/hazards: No pets and animals: Yes (Not managing litterbox) pets and animals: cat(s) history of recent travel: No sexually active: Yes Smoking Status: Current every day smoker tobacco type: e-cigarettes quit status: not considering quitting alcohol intake: current alcohol intake frequency: holidays/special occasions only details: Not while substance use type: does not use well-balanced diet: daily or most days caffeine: Yes Type: carbonated beverages Number of servings: 1 eating out: 1-3 times/week during the past year weight has: remained stable what type of physical activity do you participate in: none dania/mormon: None seatbelt use: never do you feel safe at home: Yes additional social history: Boyfriend: Johny - Works at [employer] History 4 Elective abortions Hx Para 1 Spontaneous abortions 2 Hx # Term Pregnancies 1 Ectopic pregnancies Hx # Pregnancies Multiple births # of living children 1 Past Pregnancies Del. Date Name GA/Weeks Outcome Route Bth Weight Infant Gen Labor Lgth Anesthesia Del Locatn Provider FOB 11/23/19 Danese 39 live - full term 6lbs 12oz Female epidural [facility] Johny 09/30/21 8 spontaneous 07/08/24 8 spontaneous Delivery Date: 11/23/19 Last Updated by: Tamar Chan RN No complications - Induced d/t discomfort HPI 21wk ob Details: DEBI EVRDUZCO is a 25 year old who presents for routine OB visit. OB Visit MYRON Calculator Estimated Delivery Date Method Current WG Current Estimate 09/02/25 LMP (Certain) 21w 1d Other Estimates 09/02/25 Ultrasound #1 21w 1d 09/02/25 Ultrasound #2 21w 1d Expected Delivery Route/Plan Labor Preferences- CB/BF classes: [] labor support person: [] labor intervention preferences: [] pain management options preferred: [] cut cord/dad catch: [] : [] PP control planned: [] discussed possible routes of delivery and associated risks: [] special requests: [] Specific Issue/Plans Covid status: [] Flu vaccine: [] Tdap vaccine: [] Rhogam: [] LARC form signed: [] Problem list reviewed and updated with the most current plan of care details and appropriate orders placed. Relevant counseling for the gestational age provided. Continue routine care and follow up unless otherwise noted in visit notes/problem list details Initial Weight: 138 lb Date -???-???-???-???-???-??? -???-???-???-???-???-??? - EGA Weight BP Urine Prot -???-???-???-???-???-??? -???-???-???-???-???-??? - Glucose FHR FuHt Pres Dilation -???-???-???-???-???-??? -???-???-???-???-???-??? - Effaced St Visit Note 02/01/25 -???-???-???-???-???-??? -???-???-???-???-???-??? - 9w 4d 138 lb (+0 oz) 109/71 -???-???-???-???-???-??? -???-???-???-???-???-??? - 186 -???-???-???-???-???-??? -???-???-???-???-???-??? - KW- CRL cons with dates (more content not included)... 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 Report [facility]'s [address], [address] [place] [address] OFFICE VISIT Date of Service: 03/25/25 MR#: [id number] Acct: [id number] Name: DEBI VERDUZCO Rep #: [id number] : 2000 Provider: CONCEPCION gamino Age/Sex: 25/F Location[place] [facility] [place] Status: Signed Intake Vital Signs 02/01/25 13:03 02/24/25 13:57 03/25/25 13:34 Height 5 ft 5 in 5 ft 5 in 5 ft 5 in Weight: 135 lb BMI 22.4 BP 98/60 Intake Visit Reasons: 17wk ob Chief Complaint: 17 Week OB Director Of Archives Required: No Is patient in pain?: No Allergies No Known Allergies Allergy (Verified 03/25/25 13:34) Medications ???Medication ???Instructions ???Recorded ???Confirmed ???Type vits no.130-ferrous fum 1 tab PO QDAY 01/05/25 03/25/25 Hi story 27 mg iron-folic acid 800 mcg tablet ( Vitamin) doxylamine succinate 25 mg tablet 25 mg PO QHS PRN 01/22/25 5 History (Unisom (doxylamine)) ondansetron HCl 4 mg tablet 4 mg PO Q6H PRN 01/22/25 03/25/25 History pyridoxine (vitamin B6) 10 mg 10 mg PO QDAY 01/22/25 03/25/25 Hi story tablet albuterol sulfate 90 mcg/actuation 2 puff inhalation Q4-6H PRN 01/2903/25/25 Rx aerosol inhaler (Ventolin HFA) shortness of breath or wheezing #6.7 grams promethazine 12.5 mg tablet 12.5 mg PO Q6H PRN nausea and 03/0103/25/25 Rx vomiting #60 tabs Last Menstrual Period: 11/26/24 Zika: Zika virus screening: Negative : No PFSH PFSH Surgical History S/P tonsillectomy and adenoidectomy Social History adopted: No household members: significant other and children number of children: 1 current occupation: [employer] current occupational exposures/hazards: No pets and animals: Yes (Not managing litterbox) pets and animals: cat(s) history of recent travel: No sexually active: Yes Smoking Status: Current every day smoker tobacco type: e-cigarettes quit status: not considering quitting alcohol intake: current alcohol intake frequency: holidays/special occasions only details: Not while substance use type: does not use well-balanced diet: daily or most days caffeine: Yes Type: carbonated beverages Number of servings: 1 eating out: 1-3 times/week during the past year weight has: remained stable what type of physical activity do you participate in: none dania/mormon: None seatbelt use: never do you feel safe at home: Yes additional social history: Boyfriend: Johny - Works at [employer] History 4 Elective abortions Hx Para 1 Spontaneous abortions 2 Hx # Term Pregnancies 1 Ectopic pregnancies Hx # Pregnancies Multiple births # of living children 1 Past Pregnancies Del. Date Name GA/Weeks Outcome Route Bth Weight Infant Gen Labor Lgth Anesthesia Del Locatn Provider FOB 11/23/19 Nathalie 39 live - full term 6lbs 12oz Female epidural [facility] Johny 09/30/21 8 spontaneous 07/08/24 8 spontaneous Delivery Date: 11/23/19 Last Updated by: Tamar Chan RN No complications - Induced d/t discomfort HPI 17wk ob Details: DEBI VERDUZCO is a 25 year old who presents for routine OB visit. OB Visit MYRON Calculator Estimated Delivery Date Method Current WG Current Estimate 09/02/25 LMP (Certain) 17w 0d Other Estimates 09/02/25 Ultrasound #1 17w 0d 09/02/25 Ultrasound #2 17w 0d Expected Delivery Route/Plan Labor Preferences- CB/BF classes: [] labor support person: [] labor intervention preferences: [] pain management options preferred: [] cut cord/dad catch: [] : [] PP control planned: [] discussed possible routes of delivery and associated risks: [] special requests: [] Specific Issue/Plans Covid status: [] Flu vaccine: [] Tdap vaccine: [] Rhogam: [] LARC form signed: [] Problem list reviewed and updated with the most current plan of care details and appropriate orders placed. Relevant counseling for the gestational age provided. Continue routine care and follow up unless otherwise noted in visit notes/problem list details Initial Weight: 138 lb Date -???-???-???-???-???-??? -???-???-???-???-???-??? - EGA Weight BP Urine Prot -???-???-???-???-???-??? -???-???-???-???-???-??? - Glucose FHR FuHt Pres Dilation -???-???-???-???-???-??? -???-???-???-???-???-??? - Effaced St Visit Note 02/01/25 -???-???-???-???-???-??? -???-???-???-???-???-??? - 9w 4d 138 lb (+0 oz) 109/71 -???-???-???-???-???-??? -???-???-???-???-???-??? - 186 -???-???-???-???-???-??? -???-???-???-???-???-??? - KW- CRL cons with dates. accepts NIPT. had last baby at (more content not included)... Normal [facility] Absolute lymphocyte countOrd ered By: Mariajose Ayala on 02-24-2025 Lymphocytes Auto (Unsp spec) [#/Vol] 1.15 10*3/uL 0.83-4.51 [facility] Absolute neutrophil countOrd ered By: Mariajose Ayala on 02-24-2025 Neutrophils (Bld) [#/Vol] 5.8 10*3/uL 2.0-7.7 [facility] Automated lymphocyte count a s percentage of total leukocytesOrdered By: Mariajose Ayala on 02-24-2025 Lymphocytes/100 WBC Auto (Unsp spec) 14.7 % Low 19-41 [facility] Basophil percentageOrdered B y: Mariajose Ayala on 02-24-2025 Basophils/100 WBC (Bld) 0.5 % 0-1 [facility] CBC W/Diff, Automatedon 01-29 Absolute Lymph 1.15 X10 3/uL Normal 0.83-4.51 [facility] Comment on above: Performed By: #### L 3890.6102, BTS, L509.8002, L509.4006, L3890.6301, L100.0100, L3890.6006 #### [facility] [address] [place], [address] Absolute Neut 5.8 X10 3/uL Normal 2.0-7.7 [facility] Comment on above: Performed By: #### L 3890.6102, BTS, L509.8002, L509.4006, L3890.6301, L100.0100, L3890.6006 #### [facility] [address] [place], [address] Basophils/100 WBC (Bld) 0.5 % Normal 0-1 [facility] Comment on above: Performed By: #### L 3890.6102, BTS, L509.8002, L509.4006, L3890.6301, L100.0100, L3890.6006 #### [facility] [address] [place], [address] Eosinophils/100 WBC (Bld) 2.4 % Normal 0-5 [facility] Comment on above: Performed By: #### L 3890.6102, BTS, L509.8002, L509.4006, L3890.6301, L100.0100, L3890.6006 #### [facility] [address] [place], [address] Erythrocyte distribution width (RBC) [Ratio] 14.5 % Normal 11.6-14.6 [facility] Comment on above: Performed By: #### L 3890.6102, BTS, L509.8002, L509.4006, L3890.6301, L100.0100, L3890.6006 #### [facility] [address] [place], [address] Hematocrit (Bld) [Volume fraction] 35.0 % Low 37-47 [facility] Comment on above: Performed By: #### L 3890.6102, BTS, L509.8002, L509.4006, L3890.6301, L100.0100, L3890.6006 #### [facility] [address] [place], [address] Hemoglobin (Bld) [Mass/Vol] 11.7 g/dL Low 12.0-15.0 [facility] Comment on above: Performed By: #### L 3890.6102, BTS, L509.8002, L509.4006, L3890.6301, L100.0100, L3890.6006 #### [facility] [address] [place], [address] IG% 0.500 Normal 0.0-0.9 [facility] Comment on above: Result Comment: IG% - Immature Granulocytes (promyelocytes, myelocytes and metamyelocytes) > 1% indicates that a LEFT SHIFT is Present. Performed By: #### L 3890.6102, BTS, L509.8002, L509.4006, L3890.6301, L100.0100, L3890.6006 #### [facility] [address] [place], [address] Lymphocytes/100 WBC (Bld) 14.7 % Low 19-41 [facility] Comment on above: Performed By: #### L 3890.6102, BTS, L509.8002, L509.4006, L3890.6301, L100.0100, L3890.6006 #### [facility] [address] [place], [address] MCH (RBC) [Entitic mass] 28.0 pg Normal 27.0-32.0 [facility] Comment on above: Performed By: #### L 3890.6102, BTS, L509.8002, L509.4006, L3890.6301, L100.0100, L3890.6006 #### [facility] [address] [place], [address] MCHC (RBC) [Mass/Vol] 33.4 g/dL Normal 32-36 [facility] Comment on above: Performed By: #### L 3890.6102, BTS, L509.8002, L509.4006, L3890.6301, L100.0100, L3890.6006 #### [facility] [address] [place], [address] MCV (RBC) [Entitic vol] 83.7 fL Normal 81-99 [facility] Comment on above: Performed By: #### L 3890.6102, BTS, L509.8002, L509.4006, L3890.6301, L100.0100, L3890.6006 #### [facility] [address] [place], [address] Monocytes/100 WBC (Bld) 7.9 % Normal 0-10 [facility] Comment on above: Performed By: #### L 3890.6102, BTS, L509.8002, L509.4006, L3890.6301, L100.0100, L3890.6006 #### [facility] [address] [place], [address] Neutrophils/100 WBC (Bld) 74.0 % High 47-70 [facility] Comment on above: Performed By: #### L 3890.6102, BTS, L509.8002, L509.4006, L3890.6301, L100.0100, L3890.6006 #### [facility] [address] [place], [address] Nucleated RBC (Bld) [#/Vol] 0 10*3/uL Normal 0-5 [facility] Comment on above: Performed By: #### L 3890.6102, BTS, L509.8002, L509.4006, L3890.6301, L100.0100, L3890.6006 #### [facility] [address] [place], [address] Platelet mean volume (Bld) [Entitic vol] 10.7 fL Normal 6.2-12.0 [facility] Comment on above: Performed By: #### L 3890.6102, BTS, L509.8002, L509.4006, L3890.6301, L100.0100, L3890.6006 #### [facility] [address] [place], [address] Platelets (Bld) [#/Vol] 207 10*3/uL Normal 150-450 [facility] Comment on above: Performed By: #### L 3890.6102, BTS, L509.8002, L509.4006, L3890.6301, L100.0100, L3890.6006 #### [facility] [address] [place], [address] RBC (Bld) [#/Vol] 4.18 10*6/uL Low 4.2-5.4 [facility] [facility] Comment on above: Performed By: #### L 3890.6102, BTS, L509.8002, L509.4006, L3890.6301, L100.0100, L3890.6006 #### [facility] [address] [place], [address] RDW SD 44.3 fl High 35.1-43.9 [facility] Comment on above: Performed By: #### L 3890.6102, BTS, L509.8002, L509.4006, L3890.6301, L100.0100, L3890.6006 #### [facility] [address] [place], [address] WBC (Bld) [#/Vol] 7.8 10*3/uL Normal 4.4-11.0 [facility] Comment on above: Performed By: #### L 3890.6102, BTS, L509.8002, L509.4006, L3890.6301, L100.0100, L3890.6006 #### [facility] [address] [place], [place], [phone] (569) Eosinophil percentageOrdered By: Mariajose Ayala on 02-24-2025 Eosinophils/100 WBC (Bld) 2.4 % 0-5 [facility] Erythrocyte distribution wid th ratioOrdered By: Mariajose Ayala on 02-24-2025 Erythrocyte distribution width (RBC) [Ratio] 14.5 % 11.6-14.6 [facility] Erythrocyte distribution wid th standard deviationOrdered By: Mariajose Ayala on 02-24-2025 Erythrocyte distribution width (RBC) [Ratio] 44.3 fl High 35.1-43.9 [facility] HIVon 02-24-2025 HIV Non-Reactive Normal Nonreactive [facility] Comment on above: Result Comment: Non- Reactive Reactive Repeatedly reactive samples must be confirmed according to CDC recommended confirmatory algorithms. The subresults for either HIVAG or AHIV can be used as an aid in the selection of the confirmation algorithm for reactive samples. Send out specimens with Reactive results to [facility] for confirmation. Order the HIV antibody detection and differentiation: #[id number] Performed By: #### L 3890.6102, BTS, L509.8002, L509.4006, L3890.6301, L100.0100, L3890.6006 ####[facility] [address] [place], [address] Hematocrit Auto (Bld) [Volum e fraction]Ordered By: Mariajose Ayala on 02-24-2025 Hematocrit (Bld) [Volume fraction] 35.0 % Low 37-47 [facility] Hemoglobin measurementOrdere d By: Mariajose Ayala on 02-24-2025 Hemoglobin (Bld) [Mass/Vol] 11.7 g/dL Low 12.0-15.0 [facility] Hepatitis C Antibodyon 02-24 Hepatitis C Ab Non-Reactive Normal Nonreactive [facility] Comment on above: Result Comment: Reac tive: Presumptive evidence of antibodies to HCV. Follow CDC recommendations for supplemental testing. Non-Reactive: Antibodies to HCV were not detected; does not exclude the possibility of exposure to HCV Reactive Results are presumptive evidence of antibodies to HCV. Follow CDC recommendations for supplemental testing. Order confirmation testing: HCV Quant by PCR testing - HCVPCR #[id number] Non Reactive: < 0.8 Equivocal: >/= 0.8 to < 1.0 Reactive: >/= 1.0 The CDC requires that a reactive/equivocal HCV antibody result be sent out for confirmation. HCV Quant by PCR testing. Performed By: #### L 3890.6102, BTS, L509.8002, L509.4006, L3890.6301, L100.0100, L3890.6006 ####[facility] [address] [place], [place], [phone] Immature granulocytes/100 WB C Auto (Bld)Ordered By: Mariajose Ayala on 02-24-2025 Immature granulocytes/100 WBC (Bld) 0.500 % 0.0-0.9 [facility] Comment on above: IG% - Immature Granu locytes (promyelocytes, myelocytes and metamyelocytes) > 1% indicates that a LEFT SHIFT is Present. L3890.6102on 02-24-2025 HEP B Surf Ag Non-Reactive Normal Nonreactive [facility] Comment on above: Result Comment: Reac tive: Presumptive evidence of HBV. Repeatedly reactive samples must be confirmed using a neutralization test (Elecsys HBsAg Confirmatory Test) Non-Reactive: HBsAg not detected; does not exclude the possibility of exposure to HBV Performed By: #### L 3890.6102, BTS, L509.8002, L509.4006, L3890.6301, L100.0100, L3890.6006 ####[facility] [address] [place], [place], [id number] L509.4006on 02-24-2025 Rubella IgG REAC Normal Nonreactive [facility] Comment on above: Result Comment: Anti body Result: Interpretation Non-Reactive: Non-Immune Reactive: Immune The following results were obtained with the Elecsys Rubella IgG assay. Results from assays of other manufacturers cannot be used interchangeably. Performed By: #### L 3890.6102, BTS, L509.8002, L509.4006, L3890.6301, L100.0100, L3890.6006 #### [facility] [address] [place], [address] Laboratory - Chemistry and C hemistry - challengeOrdered By: Colleen Dillard on 02-24-2025 Glucose Ql (U) Negative [facility] - Microbiology an d Antimicrobial susceptibilityOrdered By: Mariajose Ayala on 02-24-2025 HBV surface Ag Ql (S) Non-Reactive Nonreactive [facility] Comment on above: Reactive: Presumptiv e evidence of HBV. Repeatedly reactive samples must be confirmed using a neutralization test (Elecsys HBsAg Confirmatory Test)Non-Reactive: HBsAg not detected; does not exclude the possibility of exposure to HBV Laboratory - UrinalysisOrder ed By: Colleen Dillard on 02-24-2025 Protein Ql (U) Negative [facility] MCV (mean corpuscular volume ) determinationOrdered By: Mariajose Ayala on 02-24-2025 MCV (RBC) [Entitic vol] 83.7 fL 81-99 [facility] Mean corpuscular hemoglobin (MCH) determinationOrdered By: Mariajose Ayala on 02-24-2025 MCH (RBC) [Entitic mass] 28.0 pg 27.0-32.0 [facility] Mean corpuscular hemoglobin concentration (MCHC) determinationOrdered By: Mariajose Ayala on 02-24-2025 MCHC (RBC) [Mass/Vol] 33.4 g/dL 32-36 [facility] Mean platelet volume determi nationOrdered By: Mariajose Ayala on 02-24-2025 Platelet mean volume (Bld) [Entitic vol] 10.7 fL 6.2-12.0 [facility] Monocyte percentageOrdered B y: Mariajose Ayala on 02-24-2025 Monocytes/100 WBC (Bld) 7.9 % 0-10 [facility] NATERAon 02-24-2025 NATURA SEE SCANNED REPORT Normal [facility] Comment on above: Performed By: #### L 900.0098 ####[facility] [address] [place], [address] Neutrophil percentageOrdered By: Mariajose Ayala on 02-24-2025 Neutrophils/100 WBC (Bld) 74.0 % High 47-70 [facility] No Panel InformationOrdered By: Mariajose Ayala on 02-24-2025 HIV (1&2) Antibody Non-Reactive Nonreactive [facility] Comment on above: Non-ReactiveReactive Repeatedly reactive samples must be confirmed according to CDC recommended confirmatory algorithms. The subresults for either HIVAG or AHIV can be used as an aid in the selection of the confirmation algorithm for reactive samples.Send out specimens with Reactive results to [facility] for confirmation.Order the HIV antibody detection and differentiation: #[id number] Nucleated red blood cell per centageOrdered By: Mariajose Ayala on 02-24-2025 Nucleated RBC/100 WBC (Bld) [Ratio] 0 % 0-5 [facility] 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 Reporton 02-24-2025 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 Report [facility]'s [address], [address] [place] [address] OFFICE VISIT Date of Service: 02/24/25 MR#: [id number] Acct: [id number] Name: DEBI VERDUZCO Rep #: [id number] : 2000 Provider: Dr. Colleen Brannon DO Age/Sex: 24/F [place] [facility] [place]: Signed Intake Vital Signs 01/05/25 08:45 02/19/25 14:36 02/24/25 13:57 Height 5 ft 5 in 5 ft 5 in 5 ft 5 in Weight: 137 lb BMI 22.8 BP 97/62 Intake Visit Reasons: 13wk ob Director Of Archives Required: No Is patient in pain?: No Allergies No Known Allergies Allergy (Verified 02/24/25 13:58) Medications ???Medication ???Instructions ???Recorded ???Confirmed ???Type vits no.130-ferrous fum 1 tab PO QDAY 01/05/25 02/24/25 Hi story 27 mg iron-folic acid 800 mcg tablet ( Vitamin) doxylamine succinate 25 mg tablet 25 mg PO QHS PRN 01/22/25 5 History (Unisom (doxylamine)) ondansetron HCl 4 mg tablet 4 mg PO Q6H PRN 01/22/25 02/24/25 History pyridoxine (vitamin B6) 10 mg 10 mg PO QDAY 01/22/25 02/24/25 Hi story tablet albuterol sulfate 90 mcg/actuation 2 puff inhalation Q4-6H PRN 01/2902/24/25 Rx aerosol inhaler (Ventolin HFA) shortness of breath or wheezing #6.7 grams Last Menstrual Period: 11/26/24 Zika: Zika virus screening: Negative : No PFSH PFSH Surgical History S/P tonsillectomy and adenoidectomy Social History adopted: No household members: significant other and children number of children: 1 current occupation: [employer] current occupational exposures/hazards: No pets and animals: Yes (Not managing litterbox) pets and animals: cat(s) history of recent travel: No sexually active: Yes Smoking Status: Current every day smoker tobacco type: e-cigarettes quit status: not considering quitting alcohol intake: current alcohol intake frequency: holidays/special occasions only details: Not while substance use type: does not use well-balanced diet: daily or most days caffeine: Yes Type: carbonated beverages Number of servings: 1 eating out: 1-3 times/week during the past year weight has: remained stable what type of physical activity do you participate in: none dania/mormon: None seatbelt use: never do you feel safe at home: Yes additional social history: Boyfriend: Johny - Works at [employer] History 4 Elective abortions Hx Para 1 Spontaneous abortions 2 Hx # Term Pregnancies 1 Ectopic pregnancies Hx # Pregnancies Multiple births # of living children 1 Past Pregnancies Del. Date Name GA/Weeks Outcome Route Bth Weight Infant Gen Labor Lgth Anesthesia Del Locatn Provider FOB 11/23/19 Danese 39 live - full term 6lbs 12oz Female epidural [facility] Isabella Floren[facility] 09/30/21 8 spontaneous 07/08/24 8 spontaneous Delivery Date: 11/23/19 Last Updated by: Tamar Chan RN No complications - Induced d/t discomfort HPI 13wk ob Details: DEBI VERDUZCO is a 24 year old who presents for routine OB visit. OB Visit MYRON Calculator Estimated Delivery Date Method Current WG Current Estimate 09/02/25 LMP (Certain) 12w 6d Other Estimates 09/02/25 Ultrasound #1 12w 6d 09/02/25 Ultrasound #2 12w 6d Expected Delivery Route/Plan Labor Preferences- CB/BF classes: [] labor support person: [] labor intervention preferences: [] pain management options preferred: [] cut cord/dad catch: [] : [] PP control planned: [] discussed possible routes of delivery and associated risks: [] special requests: [] Specific Issue/Plans Covid status: [] Flu vaccine: [] Tdap vaccine: [] Rhogam: [] LARC form signed: [] Problem list reviewed and updated with the most current plan of care details and appropriate orders placed. Relevant counseling for the gestational age provided. Continue routine care and follow up unless otherwise noted in visit notes/problem list details Initial Weight: 138 lb Date -???-???-???-???-???-??? -???-???-???-???-???-??? - EGA Weight BP Urine Prot -???-???-???-???-???-??? -???-???-???-???-???-??? - Glucose FHR FuHt Pres Dilation -???-???-???-???-???-??? -???-???-???-???-???-??? - Effaced St Visit Note 02/01/25 -???-???-???-???-???-??? -???-???-???-???-???-??? - 9w 4d 138 lb (+0 oz) 109/71 -???-???-???-???-???-??? -???-???-???-???-???-??? - 186 -???-???-???-???-???-??? -???-???-???-???-???-??? - KW- CRL cons with dates. accepts NIPT. had last baby at [place]-no complications. KW- CRL cons with dates. accepts N IPT. had last baby at [place]-no complications. having significan (more content not included)... Normal [facility] Platelet countOrdered By: Ned Ayala on 02-24-2025 Platelets (Bld) [#/Vol] 207 10*3/uL 150-450 [facility] RBC Auto (Bld) [#/Vol]Ordere d By: Mariajose Ayala on 02-24-2025 RBC (Bld) [#/Vol] 4.18 10*6/uL Low 4.2-5.4 [facility] Syphilis Antibodieson 2024 Syphilis Abs Non-Reactive Normal Nonreactive [facility] Comment on above: Performed By: #### L 3890.6102, BTS, L509.8002, L509.4006, L3890.6301, L100.0100, L3890.6006 #### [facility] [address] [place], [address] Type AND Screenon 02-24-2025 Ab SCREEN GEL Negative Normal [facility] Comment on above: Order Comment: PN Performed By: #### L 3890.6102, BTS, L509.8002, L509.4006, L3890.6301, L100.0100, L3890.6006 #### [facility] [address] [place], [address] White blood cell (WBC) count Ordered By: Mariajose Ayala on 02-24-2025 WBC (Bld) [#/Vol] 7.8 10*3/uL 4.4-11.0 [facility] - Chemistry and C hemistry - challengeOrdered By: Colleen Dillard on 02-19-2025 Glucose Ql (U) Negative [facility] - UrinalysisOrder ed By: Colleen Dillard on 02-19-2025 Protein Ql (U) Negative [facility] 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 Reporton 02-19-2025 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 Report [facility]'s [address], [address] [place] [address] OFFICE VISIT Date of Service: 02/19/25 MR#: [id number] Acct: [id number] Name: DEBI VERDUZCO Rep #: [id number] : 2000 Provider: Dr. Colleen Brannon DO Age/Sex: 24/F Location[place] [facility] [place] Status: Signed Intake Vital Signs 02/01/25 13:03 02/19/25 14:34 02/19/25 14:36 Height 5 ft 5 in 5 ft 5 in 5 ft 5 in Weight: 137 lb 2 oz BMI 22.8 BP 120/80 Intake Visit Reasons: vaginal discharge/leaking 12wk OB Director Of Archives Required: No Is patient in pain?: No Allergies No Known Allergies Allergy (Verified 02/19/25 14:34) Medications ???Medication ???Instructions ???Recorded ???Confirmed ???Type vits no.130-ferrous fum 1 tab PO QDAY 01/05/25 02/19/25 Hi story 27 mg iron-folic acid 800 mcg tablet ( Vitamin) doxylamine succinate 25 mg tablet 25 mg PO QHS PRN 01/22/25 5 History (Unisom (doxylamine)) ondansetron HCl 4 mg tablet 4 mg PO Q6H PRN 01/22/25 02/19/25 History pyridoxine (vitamin B6) 10 mg 10 mg PO QDAY 01/22/25 02/19/25 Hi story tablet Last Menstrual Period: 11/26/24 Zika: Zika virus screening: Negative : Yes PFSH PFSH Surgical History S/P tonsillectomy and adenoidectomy Social History adopted: No household members: significant other and children number of children: 1 current occupation: [employer] current occupational exposures/hazards: No pets and animals: Yes (Not managing litterbox) pets and animals: cat(s) history of recent travel: No sexually active: Yes Smoking Status: Current every day smoker tobacco type: e-cigarettes quit status: not considering quitting alcohol intake: current alcohol intake frequency: holidays/special occasions only details: Not while substance use type: does not use well-balanced diet: daily or most days caffeine: Yes Type: carbonated beverages Number of servings: 1 eating out: 1-3 times/week during the past year weight has: remained stable what type of physical activity do you participate in: none dania/mormon: None seatbelt use: never do you feel safe at home: Yes additional social history: Boyfriend: Johny - Works at [employer] History 4 Elective abortions Hx Para 1 Spontaneous abortions 2 Hx # Term Pregnancies 1 Ectopic pregnancies Hx # Pregnancies Multiple births # of living children 1 Past Pregnancies Del. Date Name GA/Weeks Outcome Route Bth Weight Gen Labor Lgth Anesthesia Del Locatn Provider FOB 11/23/19 Nathalie 39 live - full term 6lbs 12oz Female epidural [facility] Johny 09/30/21 8 spontaneous 07/08/24 8 spontaneous Delivery Date: 11/23/19 Last Updated by: Tamar Chan RN No complications - Induced d/t discomfort HPI vaginal discharge/leaking 12wk OB Details: DEBI VERDUZCO is a 24 year old who presents for routine OB visit. OB Visit MYRON Calculator Estimated Delivery Date Method Current WG Current Estimate 09/02/25 LMP (Certain) 12w 1d Other Estimates 09/02/25 Ultrasound #1 12w 1d 09/02/25 Ultrasound #2 12w 1d Expected Delivery Route/Plan Labor Preferences- CB/BF classes: [] labor support person: [] labor intervention preferences: [] pain management options preferred: [] cut cord/dad catch: [] : [] PP control planned: [] discussed possible routes of delivery and associated risks: [] special requests: [] Specific Issue/Plans Covid status: [] Flu vaccine: [] Tdap vaccine: [] Rhogam: [] LARC form signed: [] Problem list reviewed and updated with the most current plan of care details and appropriate orders placed. Relevant counseling for the gestational age provided. Continue routine care and follow up unless otherwise noted in visit notes/problem list details Initial Weight: 138 lb Date -???-???-???-???-???-??? -???-???-???-???-???-??? - EGA Weight BP Urine Prot -???-???-???-???-???-??? -???-???-???-???-???-??? - Glucose FHR FuHt Pres Dilation -???-???-???-???-???-??? -???-???-???-???-???-??? - Effaced St Visit Note 02/01/25 -???-???-???-???-???-??? -???-???-???-???-???-??? - 9w 4d 138 lb (+0 oz) 109/71 -???-???-???-???-???-??? -???-???-???-???-???-??? - 186 -???-???-???-???-???-??? -???-???-???-???-???-??? - KW- CRL cons with dates. accepts NIPT. had last baby at [place]-no complications. KW- CRL cons with dates. accepts N IPT. had last baby at [place]-no complications. having significant nausea and vomiting. standing order for IV infusions 02/19/25 -???-???-???-???-???-??? -???-???-???-???-? (more content not included)... Normal [facility] PAP I-G w/rfx hrHPV-Aptimaon 02-04-2025 ADEQ Comment Normal . [facility] Comment on above: Order Comment: Mary taylor Comment: [id number] Comment: No. of containers..01 ThinPrep Vial Result Comment: Sati sfactory for evaluation. No endocervical component is identified. Performed By: #### M 100.2200, L7000.1800, L7400.0353 ####[facility] [address] [place], [place], [id number] COMM . Normal . [facility] Comment on above: Order Comment: Specsophie taylor Comment: [id number] Comment: No. of containers..01 ThinPrep Vial Performed By: #### M 100.2200, L7000.1800, L7400.0353 ####[facility] [address] [place], [place], [id number] COMMENT Comment Normal . [facility] Comment on above: Order Comment: Mary taylor Comment: [id number] Comment: No. of containers..01 ThinPrep Vial Result Comment: This liquid based ThinPrep(R) pap test was screened with the use of an image guided system. Performed By: #### M 100.2200, L7000.1800, L7400.0353 ####[facility] [address] [place], [place], [id number] DIAG Comment Normal . [facility] Comment on above: Order Comment: Mary taylor Comment: [id number] Comment: No. of containers..01 ThinPrep Vial Result Comment: NEGA TIVE FOR INTRAEPITHELIAL LESION OR MALIGNANCY. Performed By: #### M 100.2200, L7000.1800, L7400.0353 ####[facility] [address] [place], [address] HPV RFLX Comment Normal . [facility] Comment on above: Order Comment: Speci men Comment: [id number] Comment: No. of containers..01 ThinPrep Vial Result Comment: The HPV DNA reflex criteria were not met with this specimen result therefore, no HPV testing was performed. Performed at: [address] [id number] [place]: Liv Meier MD, Phone: [phone] Performed By: #### M 100.2200, L7000.1800, L7400.0353 ####[facility] [address] [place], [address] PAPSMR Comment Normal . [facility] Comment on above: Order Comment: Speci men Comment: [id number] Comment: No. of containers..01 ThinPrep Vial Result Comment: The Pap smear is a screening test designed to aid in the detection of premalignant and malignant conditions of the uterine cervix. It is not a diagnostic procedure and should not be used as the sole means of detecting cervical cancer. Both false-positive and false-negative reports do occur. Performed By: #### M 100.2200, L7000.1800, L7400.0353 ####[facility] [address] [place], [address] PERFORM Comment Normal . [facility] Comment on above: Order Comment: Speci men Comment: [id number] Comment: No. of containers..01 ThinPrep Vial Result Comment: Katalina Colon, Movers (ASCP) Performed By: #### M 100.2200, L7000.1800, L7400.0353 ####[facility] [address] [place], [address] Chlamydia/GC YOEL aptimaon CHLAMY,NUC ACID Negative Normal Negative [facility] Comment on above: Performed By: #### M 100.2200, L7000.1800, L7400.0353 ####[facility] [address] [place], [address] GC BY NUC ACID Negative Normal Negative [facility] Comment on above: Result Comment: Perf ormed at: =G - [facility] [address] [id number] [place]: Liv Meier MD, Phone: [phone] Performed By: #### M 100.2200, L7000.1800, L7400.0353 ####[facility] [address] [place], [address] Urine Cultureon 02-02-2025 URC Culture exhibits no growth. Normal [facility] Comment on above: Performed By: #### M 100.2200, L7000.1800, L7400.0353 ####[facility] [address] [place], [address] Cervical or vagninal specime n microscopic examination by cytology stain (reported asOrdered By: Mariajose Ayala on 02-01-2025 Cytology report Cyto stain Doc (Cvx/Vag) Comment . [facility] Comment on above: The Pap smear is a s creening test designed to aid in thedetection of premalignant and malignant conditions of theuterine cervix. It is not a diagnostic procedure andshould not be used as the sole means of detecting cervicalcancer. Both false-positive and false-negative reports dooccur. Chlamydia trachomatis rRNA d etection by probe and target amplification methodOrdered By: Mariajose Ayala on 02-01-2025 C. trachomatis rRNA YOEL+probe Ql (Unsp spec) Negative Negative [facility] - CytologyOrdered By: Mariajose Ayala on 02-01-2025 Movers Cyto stain Nom (Cvx/Vag) [ID] Comment . [facility] Comment on above: Vince Chan ytologist (ASCP) Laboratory - Miscellaneous t estsOrdered By: Mariajose Ayala on 02-01-2025 Service comment (Unsp spec) [Interp] . . [facility] Neisseria gonorrhoeae nuclei c acid detection by amplified probe techniqueOrdered By: Mariajose Ayala on 02-01-2025 N. gonorrhoeae DNA YOEL+probe Ql (Unsp spec) Negative Negative [facility] Comment on above: Performed at: =[address] [id number] Director: Liv Meier MD, Phone: [phone] No Panel InformationOrdered By: Mariajose Ayala on 02-01-2025 Pap Smear Specimen Adequacy Comment . [facility] Comment on above: Satisfactory for prerna luation. No endocervical component is identified. 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 Reporton 02-01-2025 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 Report [facility]'s [address], [address] [place] [address] OFFICE VISIT Date of Service: 02/01/25 MR#: [id number] Acct: [id number] Name: DEBI VERDUZCO Rep #: [id number] : 2000 Provider: BOB Veloz ams Age/Sex: 24/F [place] [facility] [place] Status: Signed Intake Vital Signs 01/05/25 08:45 02/01/25 13:03 Height 5 ft 5 in 5 ft 5 in Weight: 137 lb 2 oz 138 lb BMI 22.8 22.9 BP 103/71 109/71 Intake Visit Reasons: NOB: LMP 11/26, MYRON 09/02 Chief Complaint: New OB Director Of Archives Required: No Is patient in pain?: No Allergies No Known Allergies Allergy (Unverified 02/01/25 13:03) Medications ???Medication ???Instructions ???Recorded ???Confirmed ???Type vits no.130-ferrous fum 1 tab PO QDAY 01/05/25 02/01/25 Hi story 27 mg iron-folic acid 800 mcg tablet ( Vitamin) doxylamine succinate 25 mg tablet 25 mg PO QHS PRN 01/22/25 5 History (Unisom (doxylamine)) ondansetron HCl 4 mg tablet 4 mg PO Q6H PRN 01/22/25 02/01/25 History pyridoxine (vitamin B6) 10 mg 10 mg PO QDAY 01/22/25 02/01/25 Hi story tablet Last Menstrual Period: 11/26/24 : Yes Have you fallen in the past year?: No PFSH PFSH Surgical History S/P tonsillectomy and adenoidectomy Social History adopted: No household members: significant other and children number of children: 1 current occupation: [employer] current occupational exposures/hazards: No pets and animals: Yes (Not managing litterbox) pets and animals: cat(s) history of recent travel: No sexually active: Yes Smoking Status: Current every day smoker tobacco type: e-cigarettes quit status: not considering quitting alcohol intake: current alcohol intake frequency: holidays/special occasions only details: Not while substance use type: does not use well-balanced diet: daily or most days caffeine: Yes Type: carbonated beverages Number of servings: 1 eating out: 1-3 times/week during the past year weight has: remained stable what type of physical activity do you participate in: none dania/mormon: None seatbelt use: never do you feel safe at home: Yes additional social history: Boyfriend: Johny - Works at [employer] History 4 Elective abortions Hx Para 1 Spontaneous abortions 2 Hx # Term Pregnancies 1 Ectopic pregnancies Hx # Pregnancies Multiple births # of living children 1 Past Pregnancies Del. Date Name GA/Weeks Outcome Route Bth Weight Gen Labor Lgth Anesthesia Del Locatn Provider FOB 11/23/19 Nathalie 39 live - full term 6lbs 12oz Female epidural [facility] Johny 09/30/21 8 spontaneous 07/08/24 8 spontaneous Delivery Date: 11/23/19 Last Updated by: Tamar Chan RN No complications - Induced d/t discomfort HPI NOB: LMP 11/26, MYRON 09/02 Details: DEBI VERDUZCO is a 24 year old who presents for New OB visit. OB Visit [facility] Calculator Estimated Delivery Date Method Current WG Current Estimate 09/02/25 LMP (Certain) 9w 4d Other Estimates 09/02/25 Ultrasound #1 9w 4d 09/02/25 Ultrasound #2 9w 4d Estimated Due Date: 09/02/25 Expected Delivery Route/Plan Labor Preferences- CB/BF classes: [] labor support person: [] labor intervention preferences: [] pain management options preferred: [] cut cord/dad catch: [] : [] PP control planned: [] discussed possible routes of delivery and associated risks: [] special requests: [] Specific Issue/Plans Covid status: [] Flu vaccine: [] Tdap vaccine: [] Rhogam: [] LARC form signed: [] Problem list reviewed and updated with the most current plan of care details and appropriate orders placed. Relevant counseling for the gestational age provided. Continue routine care and follow up unless otherwise noted in visit notes/problem list details Initial Weight: 138 lb Date -???-???-???-???-???-??? -???-???-???-???-???-??? - EGA Weight BP Urine Prot -???-???-???-???-???-??? -???-???-???-???-???-??? - Glucose FHR FuHt Pres Dilation -???-???-???-???-???-??? -???-???-???-???-???-??? - Effaced St Visit Note 02/01/25 -???-???-???-???-???-??? -???-???-???-???-???-??? - 9w 4d 138 lb (+0 oz) 109/71 -???-???-???-???-???-??? -???-???-???-???-???-??? - 186 -???-???-???-???-???-??? -???-???-???-???-???-??? - KW- CRL cons with dates. accepts NIPT. had last baby at [place]-no complications. KW- CRL cons with dates. accepts N IPT. had last baby at [place]-no complications. having significant nausea and vomiting. standing order for IV infusions Menstrual History Last Menstrual Period: (more content not included)... Normal [facility] Urine cultureOrdered By: Bert Ayala on 02-01-2025 Bacteria identified Cx Nom (U) Culture exhibits no growth. [facility] Bacteria identifiedon 2024 Bacteria identified Cx Nom (U) Test: Urine Culture Specimen Source: Clean Catch/Voided Specimen Type: Urine Specimen Date: 01/31/20252013 Result Date: 02/02/2025839 Result Status: Final result Abnormal: No Resulting Lab: [facility] [address] [place] [address] CULTURE Clinically insignificant growth based on current clinical standards. Normal [facility] Comment on above: Performed By: #### 6 30-4 ####KASANDRA Cadena ([id number])[facility] ([facility])[address] [place] [address] CBC panel Auto (Bld)on 01-31 Erythrocyte distribution width (RBC) [Ratio] 14.9 % High 11.5 - 14.5 % [facility] Hematocrit (Bld) [Volume fraction] 36.9 % 36.0 - 46.0 % [facility] Hemoglobin (Bld) [Mass/Vol] 12.1 g/dL 12.0 - 16.0 g/dL [facility] Interpretation and review of laboratory results Abnormal [facility] MCH (RBC) [Entitic mass] 27.4 pg 26.0 - 34.0 pg [facility] MCHC (RBC) [Mass/Vol] 32.8 g/dL 32.0 - 36.0 g/dL [facility] MCV (RBC) [Entitic vol] 84 fL 80 - 100 fL [facility] Nucleated RBC/100 WBC (Bld) [Ratio] 0 % [facility] Platelets (Bld) [#/Vol] 242 10*3/uL [facility] RBC (Bld) [#/Vol] 4.41 10*6/uL [facility] WBC (Bld) [#/Vol] 7.2 10*3/uL [facility] Erythrocyte distribution width (RBC) [Ratio] 14.9 % High 11.5-14.5 [facility] Comment on above: Performed By: #### 5 8410-2 #### RENUKA LOPEZ ([id number]) [facility] ([facility]) [address] [place] [address]64 Hematocrit (Bld) [Volume fraction] 36.9 % Normal 36.0-46.0 [facility] Comment on above: Performed By: #### 5 8410-2 #### RENUKA LOPEZ ([id number]) [facility] ([facility]) [address] [place] [address] 24363 Hemoglobin (Bld) [Mass/Vol] 12.1 g/dL Normal 12.0-16.0 [facility] Comment on above: Performed By: #### 5 8410-2 #### RENUKA LOPEZ ([id number]) [facility] ([facility]) [address] [place] [address] 39830 MCH (RBC) [Entitic mass] 27.4 pg Normal 26.0-34.0 [facility] Comment on above: Performed By: #### 5 8410-2 #### RENUKA LOPEZ ([id number]) [facility] ([facility]) [address] [place] [address] 21413 MCHC (RBC) [Mass/Vol] 32.8 g/dL Normal 32.0-36.0 [facility] Comment on above: Performed By: #### 5 8410-2 #### RENUKA LOPEZ ([id number]) [facility] ([facility]) [address] [place] [address] 26899 MCV (RBC) [Entitic vol] 84 fL Normal 80-100 [facility] Comment on above: Performed By: #### 5 8410-2 #### RENUKA LOPEZ ([id number]) [facility] ([facility]) [facility] [place] [address] Nucleated RBC/100 WBC (Bld) [Ratio] 0.0 /100 WBCs Normal 0.0-0.0 [facility] Comment on above: Performed By: #### 5 8410-2 #### RENUKA LOPEZ ([id number]) [facility] ([facility]) [address] [place] [address] 51585 Platelets (Bld) [#/Vol] 242 x10*3/uL Normal 150-450 [facility] Comment on above: Performed By: #### 5 8410-2 #### RENUKA LOPEZ ([id number]) [facility] ([facility]) [address] [place] [address] RBC (Bld) [#/Vol] 4.41 x10*6/uL Normal 4.00-5.20 [facility] Comment on above: Performed By: #### 5 8410-2 #### RENUKA LOPEZ ([id number]) [facility] ([facility]) [address] [place] [address] 50659 WBC (Bld) [#/Vol] 7.2 x10*3/uL Normal 4.4-11.3 [facility] Comment on above: Performed By: #### 5 8410-2 #### RENUKA LOPEZ ([id number]) [facility] ([facility]) [address] [place] [address] Comprehensive metabolic 2000 panelon 01-31-2025 Albumin BCP dye [Mass/Vol] 4.1 g/dL 3.4 - 5.0 g/dL [facility] ALP [Catalytic activity/Vol] 69 U/L 33 - 110 U/L [facility] ALT With P-5'-P [Catalytic activity/Vol] 8 U/L 7 - 45 U/L [facility] Comment on above: Patients treated wit h Sulfasalazine may generate falsely decreased results for ALT. Anion gap [Moles/Vol] 14 mmol/L 10 - 2 0 mmol/L [facility] AST With P-5'-P [Catalytic activity/Vol] 11 U/L 9 - 39 U/L [facility] Bilirubin [Mass/Vol] 0.3 mg/dL 0.0 - 1 .2 mg/dL [facility] Calcium [Mass/Vol] 9.4 mg/dL 8.6 - 10. 3 mg/dL [facility] Chloride [Moles/Vol] 104 mmol/L 98 - 10 7 mmol/L [facility] CO2 [Moles/Vol] 23 mmol/L 21 - 32 mmol/L [facility] Creatinine [Mass/Vol] 0.47 mg/dL Low 0.50 - 1.05 mg/dL [facility] eGFR - PINF [facility] Comment on above: Calculations of nilson mated GFR are performed using the 2020 CKD-EPI Study Refit equation without the race variable for the IDMS-Traceable creatinine methods. https://jasn.asnjournals.org/content/early/ASN.59660 65631 Glucose [Mass/Vol] 80 mg/dL 74 - 99 mg/dL [facility] Interpretation and review of laboratory results Abnormal [facility] Potassium [Moles/Vol] 3.6 mmol/L 3.5 - 5.3 mmol/L [facility] Protein [Mass/Vol] 7.1 g/dL 6.4 - 8.2 g/dL [facility] Sodium [Moles/Vol] 137 mmol/L 136 - 145 mmol/L [facility] Urea nitrogen [Mass/Vol] 6 mg/dL 6 - 23 mg/dL [facility] Albumin BCP dye [Mass/Vol] 4.1 g/dL Normal 3.4-5.0 [facility] Comment on above: Performed By: #### 2 4323-8 #### RENUKA LOPEZ ([id number]) [facility] ([facility]) [address] [place] [address] ALP [Catalytic activity/Vol] 69 U/L Normal 33-110 [facility] Comment on above: Performed By: #### 2 4323-8 #### RENUKA LOPEZ ([id number]) [facility] ([facility]) [address] [place] [address] ALT With P-5'-P [Catalytic activity/Vol] 8 U/L Normal 7-45 [facility] Comment on above: Result Comment: Lynsey ents treated with Sulfasalazine may generate falsely decreased results for ALT. Performed By: #### 2 4323-8 #### RENUKA LOPEZ ([id number]) [facility] ([facility]) [address] [place] [address] Anion gap [Moles/Vol] 14 mmol/L Normal 10-20 [facility] Comment on above: Performed By: #### 2 432-8 #### RENUKA LOPEZ ([id number]) [facility] ([facility]) [address] [place] [address] 34010 AST With P-5'-P [Catalytic activity/Vol] 11 U/L Normal 9-39 [facility] Comment on above: Performed By: #### 2 432-8 #### RENUKA LOPEZ ([id number]) [facility] ([facility]) [address] [place] [address]4540 Bilirubin [Mass/Vol] 0.3 mg/dL Normal 0.0-1.2 [facility] Comment on above: Performed By: #### 2 432-8 #### RENUKA LOPEZ ([id number]) [facility] ([facility]) [address] [place] [address] Calcium [Mass/Vol] 9.4 mg/dL Normal 8.6-10.3 [facility] Comment on above: Performed By: #### 2 4323-8 #### RENUKA LOPEZ ([id number]) [facility] ([facility]) [address] [place] [address] Chloride [Moles/Vol] 104 mmol/L Normal 98-107 [facility] Comment on above: Performed By: #### 2 4323-8 #### RENUKA LOPEZ ([id number]) [facility] ([facility]) [address] [place] [address] CO2 [Moles/Vol] 23 mmol/L Normal 21-32 [facility] Comment on above: Performed By: #### 2 4323-8 #### RENUKA LOPEZ ([id number]) [facility] ([facility]) [address] [place] [address] 64362 Creatinine [Mass/Vol] 0.47 mg/dL Low 0.50-1.05 [facility] Comment on above: Performed By: #### 2 432-8 #### RENUKA LOPEZ ([id number]) [facility] ([facility]) [address] [place] [address] 45038 GFR/1.73 sq M.predicted MDRD (S/P/Bld) [Vol rate/Area] mL/min/{1.73_m2} Normal >60 [facility] Comment on above: Result Comment: Calc ulations of estimated GFR are performed using the 2020 CKD-EPI Study Refit equation without the race variable for the IDMS-Traceable creatinine methods. https://jasn.asnjournals.org/content/early/ASN.74721 45872 Performed By: #### 2 4323-8 #### RENUKA LOPEZ ([id number]) [facility] ([facility]) [address] [place] [address] 07623 Glucose [Mass/Vol] 80 mg/dL Normal 74-99 [facility] Comment on above: Performed By: #### 2 4323-8 #### RENUKA LOPEZ ([id number]) [facility] ([facility]) [address] [place] [address] 64572 Potassium [Moles/Vol] 3.6 mmol/L Normal 3.5-5.3 [facility] Comment on above: Performed By: #### 2 4323-8 #### RENUKA LOPEZ ([id number]) [facility] ([facility]) [address] [place] [address] 37355 Protein [Mass/Vol] 7.1 g/dL Normal 6.4-8.2 [facility] Comment on above: Performed By: #### 2 4323-8 #### RENUKA LOPEZ ([id number]) [facility] ([facility]) [address] [place] [address] Sodium [Moles/Vol] 137 mmol/L Normal 136-145 [facility] Comment on above: Performed By: #### 2 4323-8 #### RENUKA LOPEZ ([id number]) [facility] ([facility]) [facility] [place] [phone] Urea nitrogen [Mass/Vol] 6 mg/dL Normal 6-23 [facility] Comment on above: Performed By: #### 2 4323-8 #### RENUKA LOPEZ ([id number]) [facility] ([facility]) [address] [place] [address] No Panel Informationon 01-31 Interpretation and review of laboratory results Abnormal [facility] Urinalysis complete W Reflex Culture panel (U)on 01-31-2025 Appearance (U) Turbid Abnormal Clear [facility] Bilirubin (U) [Mass/Vol] Negative NEGATIVE mg/dL [facility] Color (U) Light-Yellow Light-Yellow , Yellow, Dark-Yellow [facility] Glucose Auto test strip (U) [Mass/Vol] Normal Normal mg/dL [facility] Ketones (U) [Mass/Vol] 40 (2+) Abnormal NEGAT [place] mg/dL [facility] Leukocyte esterase Auto test strip Ql (U) 500 Ubaldo/uL Abnormal NEGATIVE [facility] Nitrite Auto test strip Ql (U) Negative NEGATIVE [facility] pH (U) 6.5 [pH] 5.0, 5.5, 6.0, 6.5, 7.0, 7.5, 8.0 [facility] Protein (U) [Mass/Vol] Negative NEGAT [place], 10 (TRACE), 20 (TRACE) mg/dL [facility] RBC (U) [#/Vol] Negative NEGATIVE mg/dL [facility] Specific gravity (U) [Rel density] 1.019 1.005 - 1.035 [facility] Urobilinogen (U) [Mass/Vol] Normal Normal mg/dL [facility] Appearance (U) Turbid Normal Clear [facility] Comment on above: Performed By: #### 5 8077-9 #### RENUKA LOPEZ ([id number]) [facility] ([facility]) [address] [place] [address] 81056 Bilirubin (U) [Mass/Vol] Negative Normal NEGATIVE [facility] Comment on above: Performed By: #### 5 8077-9 #### RENUKA LOPEZ ([id number]) [facility] ([facility]) [address] [place], [place] [address] Color (U) Light-Yellow Normal Light-Yellow , Yellow, Dark-Yellow [facility] Comment on above: Performed By: #### 5 8077-9 #### RENUKA LOPEZ ([id number]) [facility] ([facility]) [address] [place] [address] Glucose Auto test strip (U) [Mass/Vol] Normal Normal Normal [facility] Comment on above: Performed By: #### 5 8077-9 #### RENUKA LOPEZ ([id number]) [facility] ([facility]) [address] [place], [place] [address] Ketones (U) [Mass/Vol] 40 (2+) Abnormal NEGATIVE [facility] Comment on above: Performed By: #### 5 8077-9 #### RENUKA LOPEZ ([id number]) [facility] ([facility]) [address] [place] [address] 92842 Leukocyte esterase Auto test strip Ql (U) 500 Ubaldo/uL Abnormal NEGATIVE [facility] Comment on above: Performed By: #### 5 8077-9 #### RENUKA LOPEZ ([id number]) [facility] ([facility]) [address] [place] [address] 31179 Nitrite Auto test strip Ql (U) Negative Normal NEGATIVE [facility] Comment on above: Performed By: #### 5 8077-9 #### RENUKA LOPEZ ([id number]) [facility] ([facility]) [address] [place] [address] 24306 pH (U) 6.5 [pH] Normal 5.0, 5.5, 6.0, 6.5, 7.0, 7.5, 8.0 [facility] Comment on above: Performed By: #### 5 8077-9 #### RENUKA LOPEZ ([id number]) [facility] ([facility]) [address] [place] [address] Protein (U) [Mass/Vol] Negative Normal NEGAT [place], 10 (TRACE), 20 (TRACE) [facility] Comment on above: Performed By: #### 5 8077-9 #### RENUKA LOPEZ ([id number]) [facility] ([facility]) [address] [place] [address] 24112 RBC (U) [#/Vol] Negative Normal NEGATIVE [facility] Comment on above: Performed By: #### 5 8077-9 #### RENUKA LOPEZ ([id number]) [facility] ([facility]) [address] [place] [address] Specific gravity (U) [Rel density] 1.019 Normal 1.005-1.035 [facility] Comment on above: Performed By: #### 5 8077-9 #### RENUKA LOPEZ ([id number]) [facility] ([facility]) [address] [place], [place] [address] Urobilinogen (U) [Mass/Vol] Normal Normal Normal [facility] Comment on above: Performed By: #### 5 8077-9 #### RENUKA LOPEZ ([id number]) [facility] ([facility]) [address] [place], [place] [phone] Urinalysis microscopic panel Auto Ql (U)on 01-31-2025 Bacteria Auto (Urine sed) [#/Area] 1+ Abnormal NONE SEEN /HPF [facility] Epithelial cells.squamous Auto (Urine sed) [#/Area] 1-9 (SPARSE) Reference range not established. /HPF [facility] Mucus Auto (Urine sed) [#/Area] FEW Reference range not established. /LPF [facility] RBC Auto (Urine sed) [#/Area] 3-5 NONE, 1-2, 3-5 /HPF [facility] WBC Auto (Urine sed) [#/Area] 6-10 Abnormal 1-5, NONE /HPF [facility] Bacteria Auto (Urine sed) [#/Area] 1+ /HPF Abnormal NONE SEEN [facility] Comment on above: Performed By: #### 5 3315-8 #### RENUKA LOPEZ ([id number]) [facility] ([facility]) [facility] [place] [address] Epithelial cells.squamous Auto (Urine sed) [#/Area] 1-9 (SPARSE) Normal Reference range not established. [facility] Comment on above: Performed By: #### 5 3315-8 #### RENUKA LOPEZ ([id number]) [facility] ([facility]) [address] [place] [address] 69973 Mucus Auto (Urine sed) [#/Area] FEW Normal Reference range not established. [facility] Comment on above: Performed By: #### 5 5-8 #### RENUKA LOPEZ ([id number]) [facility] ([facility]) [address] [place] [address] 27000 RBC Auto (Urine sed) [#/Area] 3-5 Normal NONE, 1-2, 3-5 [facility] Comment on above: Performed By: #### 5 4825-8 #### RENUKA LOPEZ ([id number]) [facility] ([facility]) [facility] [place] [address] WBC Auto (Urine sed) [#/Area] 6-10 Abnormal 1-5, NONE [facility] Comment on above: Performed By: #### 5 5805-8 #### RENUKA LOPEZ ([id number]) [facility] ([facility]) [address] [place] [address] 88292 Serum human chorionic gonado tropin detection for pregnancyOrdered By: Mariajose Ayala on 01-28-2025 HCG ( test) Ql 594722 mIU/mL High <9 [facility] Comment on above: Gestational Age0.2-1 Week: 5-50 mIU/mL1-2 Weeks: 50-500 mIU/mL2-3 Weeks: 100-5000 mIU/mL3-4 Weeks: 500-10,000 mIU/mL4-5 Weeks:1000-50,000 mIU/mL5-6 Weeks: 10,000-100,000 mIU/mL6-8 Weeks: 15,000-200,000 mIU/mL2-3 Months:10,000-100,000 mIU/mL Transvaginal w/Preg USon Transvaginal w/Preg US [facility] [address] [place], [place] [address] Transvaginal w/Preg US MR#: [id number] Acct: [id number] Name: DEBI VERDUZCO Rep #: [id number] : 2000 From: Camron Scott MD PCP: CONCEPCION Caballero Status: REG CLI Study: Transvaginal w/Preg US Date of Exam: 01/28/25 Exam# [id number] Ordering Dr: Mariajose Ayala CNM PROCEDURE: TRANSVAGINAL W/PREG US 01/28/2025 REASON FOR EXAM: DATING TECHNIQUE: High resolution obstetric ultrasound performed using a 2D transducer. Standard views obtained, including biometry, anatomy survey, and Doppler studies. FINDINGS Transvaginal imaging Single live intrauterine measuring 9 weeks and 3 days by gestational sac and 8 weeks and 6 days by crown-rump length. heart tones 177 beats per minute. Yolk sac is present 6 mm No evidence of miri sac hemorrhage. The uterus measures 11 x 8.4 x 5.8 cm and appears within limits. The cervix appears closed. The right ovary measures 2.8 x 2.1 x 1.9 cm, and the left ovary measures 3.3 x 2.4 x 2.3 cm. The ovaries appear within limits. No adnexal mass identified. No free fluid seen. US/Transvaginal w/Preg US IMPRESSION: Single live intrauterine with heart tones of 177 beats per minute. Estimated gestational age by ultrasound 9 weeks and 1 day, MYRON 09/01/2025. Estimated gestational age by LMP 9 weeks and 0 days, MYRON 09/02/2025. Reading Location: [id number] CC: BOB Ayala; CONCEPCION [place] Line Installer Trolley: Signed Normal [facility] hCG Titer Quant., Serumon HCG QUANT. [id number] mIU/mL High <9 non-preg [facility] Comment on above: Result Comment: Gest ational Age 0.2-1 Week: 5-50 mIU/mL 1-2 Weeks: 50-500 mIU/mL 2-3 Weeks: 100-5000 mIU/mL 3-4 Weeks: 500-10,000 mIU/mL 4-5 Weeks:1000-50,000 mIU/mL 5-6 Weeks: 10,000-100,000 mIU/mL 6-8 Weeks: 15,000-200,000 mIU/mL 2-3 Months:10,000-100,000 mIU/mL Performed By: #### L 700.8000 ####[facility] [address] [place], [address] CHLAMYDIA/N. GONORRHOEAE RNA , TMA, UROGENITALon 01-15-2025 CHLAMYDIA TRACHOMATIS RNA, TMA, UROGENITAL Not detected Normal NOT DETECTED [facility] Comment on above: Performed By: #### 3 95, 37954 #### [facility] [address], [address] [place] [address] Can Striper: Kamlesh Ash MD COMMENT Normal [facility] Comment on above: Result Comment: The analytical performance characteristics of this assay, when used to test SurePath(TM) specimens have been determined by [employer]. The modifications have not been cleared or approved by the FDA. This assay has been validated pursuant to the CLIA regulations and is used for clinical purposes. For additional information, please refer to https://education.[employer]/faq/ORK783 (This link is being provided for information/ educational purposes only.) Performed By: #### 3 95, 63340 #### [facility] [address], [address] [place], [place] [id number] Can Striper: Kamlesh Ash MD NEISSERIA GONORRHOEAE RNA, TMA, UROGENITAL Not detected Normal NOT DETECTED [facility] Comment on above: Performed By: #### 3 95, 09382 #### [facility] [address], [address] [place] [address] Can Striper: Kamlesh Ash MD CULTURE, URINE, ROUTINEon Bacteria identified Cx Nom (U) SEE NOTE Normal [facility] Comment on above: Result Comment: CULTURE, URINE, ROUTINE Micro Number: [id number] Test Status: Final Specimen Source: Urine, clean catch Specimen Quality: Adequate Result: No Growth Performed By: #### 3 95, 36850 #### [facility] [address], [address] [place] [id number] Can Striper: Kamlesh Ash MD Laboratory - Chemistry and C hemistry - challengeOrdered By: Meena Us on 01-05-2025 HCG ( test) Ql (U) Positive [facility] Office Visit Reporton 2024 Office Visit Report [facility] [address] [place] [address] OFFICE VISIT Date of Service: 01/05/25 MR#: [id number] Acct: [id number] Patient: DEBI VERDUZCO Rep #: [id number] 3 : 2000 Provider: Dr. Meena menendez MD Age/Sex: 24/F Location[place] [facility] [place]: Signed Intake Vital Signs 01/05/25 08:45 Height 5 ft 5 in Weight: 137 lb 2 oz BMI 22.8 BP 103/71 Intake Visit Reasons: New patient , Urine HCG and establish Chief Complaint: Urine HCG, Establish Care Director Of Archives Required: No Is patient in pain?: No Allergies No Known Allergies Allergy (Unverified 01/05/25 08:45) Medications ???Medication ???Instructions ???Recorded ???Confirmed ???Type vits no.130-ferrous fum 1 tab PO QDAY 01/05/25 01/05/25 Hi story 27 mg iron-folic acid 800 mcg tablet ( Vitamin) Is last menstrual period known: Yes Last menstrual period: 11/26/24 Post menopausal: No Patient : Yes Have you fallen in the past year?: No Results POC Urine Office , Urine Positive Last Edit by Nelli Askew on 01/05/25 08:51 Assessment and Plan Assessment and Plan (1) Amenorrhea: Status: Acute Orders: Orders POC Urine 01/05/25 N91.2 - Amenorrhea, unspecified Plan confirmed . Clinical Quality Measures Falls Risk Screening/Assistive Devices Have you fallen in the past year?: No 01/06/25 0751 Date Meena Us MD 01/05/25 1029 Cosigner Signature: Date (if applicable) Aisha Vitale NP PILE HEADER-C CC: Normal [facility] Basic metabolic 2000 panelon 10-30-2024 Anion gap [Moles/Vol] 10 mmol/L 10 - 2 0 mmol/L [facility] Calcium [Mass/Vol] 8.7 mg/dL 8.6 - 10. 3 mg/dL [facility] Chloride [Moles/Vol] 108 mmol/L High 98 - 10 7 mmol/L [facility] CO2 [Moles/Vol] 24 mmol/L 21 - 32 mmol/L [facility] Creatinine [Mass/Vol] 0.56 mg/dL 0.50 - 1.05 mg/dL [facility] eGFR - PINF [facility] Comment on above: Calculations of nilson mated GFR are performed using the 2020 CKD-EPI Study Refit equation without the race variable for the IDMS-Traceable creatinine methods. https://jasn.asnjournals.org/content/early//ASN.96015 53661 Glucose [Mass/Vol] 87 mg/dL 74 - 99 mg/dL [facility] Interpretation and review of laboratory results Abnormal [facility] Potassium [Moles/Vol] 3.8 mmol/L 3.5 - 5.3 mmol/L [facility] Sodium [Moles/Vol] 138 mmol/L 136 - 145 mmol/L [facility] Urea nitrogen [Mass/Vol] 5 mg/dL Low 6 - 23 mg/dL [facility] Anion gap [Moles/Vol] 10 mmol/L Normal 10-20 [facility] Comment on above: Performed By: #### 2 4321-2 #### RENUKA LOPEZ ([id number]) [facility] ([facility]) [facility] [place] [address] Calcium [Mass/Vol] 8.7 mg/dL Normal 8.6-10.3 [facility] Comment on above: Performed By: #### 2 4321-2 #### RENUKA LOPEZ ([id number]) [facility] ([facility]) [address] [place] [address] 18890 Chloride [Moles/Vol] 108 mmol/L High 98-107 [facility] Comment on above: Performed By: #### 2 4321-2 #### RENUKA LOPEZ ([id number]) [facility] ([facility]) [address] [place] [address]755 CO2 [Moles/Vol] 24 mmol/L Normal 21-32 [facility] Comment on above: Performed By: #### 2 4321-2 #### RENUKA LOPEZ ([id number]) [facility] ([facility]) [facility] [place] [address] Creatinine [Mass/Vol] 0.56 mg/dL Normal 0.50-1.05 [facility] Comment on above: Performed By: #### 2 4321-2 #### RENUKA LOPEZ ([id number]) [facility] ([facility]) [address] [place] [address] 83875 GFR/1.73 sq M.predicted MDRD (S/P/Bld) [Vol rate/Area] mL/min/{1.73_m2} Normal >60 [facility] Comment on above: Result Comment: Calc ulations of estimated GFR are performed using the 2020 CKD-EPI Study Refit equation without the race variable for the IDMS-Traceable creatinine methods. https://jasn.asnjournals.org/content/early/ASN.58629 68261 Performed By: #### 2 4321-2 #### RENUKA LOPEZ ([id number]) [facility] ([facility]) [address] [place] [address]70 Glucose [Mass/Vol] 87 mg/dL Normal 74-99 [facility] Comment on above: Performed By: #### 2 4321-2 #### RENUKA LOPEZ ([id number]) [facility] ([facility]) [address] [place] [address] 22319 Potassium [Moles/Vol] 3.8 mmol/L Normal 3.5-5.3 [facility] Comment on above: Performed By: #### 2 4321-2 #### RENUKA LOPEZ ([id number]) [facility] ([facility]) [address] [place] [address]10 Sodium [Moles/Vol] 138 mmol/L Normal 136-145 [facility] Comment on above: Performed By: #### 2 4321-2 #### RENUKA LOPEZ ([id number]) [facility] ([facility]) [address] [place] [address] 56081 Urea nitrogen [Mass/Vol] 5 mg/dL Low 6-23 [facility] Comment on above: Performed By: #### 2 4321-2 #### RENUKA LOPEZ ([id number]) [facility] ([facility]) [address] [place] [address] 46928 CBC W Auto Differential pane l (Bld)on 10-30-2024 Basophils (Bld) [#/Vol] 0.04 10*3/uL [facility] Basophils/100 WBC (Bld) 0.9 % 0.0 - 2.0 % [facility] Eosinophils (Bld) [#/Vol] 0.09 10*3/uL [facility] Eosinophils/100 WBC (Bld) 1.9 % 0.0 - 6.0 % [facility] Erythrocyte distribution width (RBC) [Ratio] 13.8 % 11.5 - 14.5 % [facility] Hematocrit (Bld) [Volume fraction] 35.1 % Low 36.0 - 46.0 % [facility] Hemoglobin (Bld) [Mass/Vol] 11.1 g/dL Low 12.0 - 16.0 g/dL [facility] Immature granulocytes (Bld) [#/Vol] 0.01 10*3/uL [facility] Immature granulocytes/100 WBC (Bld) 0.2 % 0.0 - 0.9 % [facility] Comment on above: Immature Granulocyte Count (IG) includes promyelocytes, myelocytes and metamyelocytes but does not include bands. Percent differential counts (%) should be interpreted in the context of the absolute cell counts (cells/UL). Interpretation and review of laboratory results Abnormal [facility] Lymphocytes (Bld) [#/Vol] 0.93 10*3/uL Low [facility] Lymphocytes/100 WBC (Bld) 20 % 13.0 - 44.0 % [facility] MCH (RBC) [Entitic mass] 25.6 pg Low 26.0 - 34.0 pg [facility] MCHC (RBC) [Mass/Vol] 31.6 g/dL Low 32.0 - 36.0 g/dL [facility] MCV (RBC) [Entitic vol] 81 fL 80 - 100 fL [facility] Monocytes (Bld) [#/Vol] 0.57 10*3/uL [facility] Monocytes/100 WBC (Bld) 12.2 % 2.0 - 10.0 % [facility] Neutrophils (Bld) [#/Vol] 3.02 10*3/uL [facility] Comment on above: Percent differential counts (%) should be interpreted in the context of the absolute cell counts (cells/uL). Neutrophils/100 WBC (Bld) 64.8 % 40.0 - 80.0 % [facility] Nucleated RBC/100 WBC (Bld) [Ratio] 0 % [facility] Platelets (Bld) [#/Vol] 201 10*3/uL [facility] RBC (Bld) [#/Vol] 4.33 10*6/uL [facility] WBC (Bld) [#/Vol] 4.7 10*3/uL [facility] Basophils (Bld) [#/Vol] 0.04 x10*3/uL Normal 0.00-0.10 [facility] Comment on above: Performed By: #### 5 7021-8 #### RENUKA LOPEZ ([id number]) [facility] ([facility]) [address] [place] [address]508 Basophils/100 WBC (Bld) 0.9 % Normal 0.0-2.0 [facility] Comment on above: Performed By: #### 5 7021-8 #### RENUKA LOPEZ ([id number]) [facility] ([facility]) [address] [place] [address] 81604 Eosinophils (Bld) [#/Vol] 0.09 x10*3/uL Normal 0.00-0.70 [facility] Comment on above: Performed By: #### 5 7021-8 #### RENUKA LOPEZ ([id number]) [facility] ([facility]) [address] [place] [address] 05531 Eosinophils/100 WBC (Bld) 1.9 % Normal 0.0-6.0 [facility] Comment on above: Performed By: #### 5 7021-8 #### RENUKA LOPEZ ([id number]) [facility] ([facility]) [address] [place] [address] 48646 Erythrocyte distribution width (RBC) [Ratio] 13.8 % Normal 11.5-14.5 [facility] Comment on above: Performed By: #### 5 7021-8 #### RENUKA LOPEZ ([id number]) [facility] ([facility]) [address] [place] [address] 38548 Hematocrit (Bld) [Volume fraction] 35.1 % Low 36.0-46.0 [facility] Comment on above: Performed By: #### 5 7021-8 #### RENUKA LOPEZ ([id number]) [facility] ([facility]) [address] [place] [address] 34146 Hemoglobin (Bld) [Mass/Vol] 11.1 g/dL Low 12.0-16.0 [facility] Comment on above: Performed By: #### 5 7021-8 #### RENUKA LOPEZ ([id number]) [facility] ([facility]) [address] [place] [address] 69653 Immature granulocytes (Bld) [#/Vol] 0.01 x10*3/uL Normal 0.00-0.70 [facility] Comment on above: Performed By: #### 5 7021-8 #### RENUKA LOPEZ ([id number]) [facility] ([facility]) [address] [place] [address] 34794 Immature granulocytes/100 WBC (Bld) 0.2 % Normal 0.0-0.9 [facility] Comment on above: Result Comment: Arielle ture Granulocyte Count (IG) includes promyelocytes, myelocytes and metamyelocytes but does not include bands. Percent differential counts (%) should be interpreted in the context of the absolute cell counts (cells/UL). Performed By: #### 5 7021-8 #### RENUKA LOPEZ ([id number]) [facility] ([facility]) [address] [place] [address] 05177 Lymphocytes (Bld) [#/Vol] 0.93 x10*3/uL Low 1.20-4.80 [facility] Comment on above: Performed By: #### 5 7021-8 #### RENUKA LOPEZ ([id number]) [facility] ([facility]) [address] [place] [address] 43568 Lymphocytes/100 WBC (Bld) 20.0 % Normal 13.0-44.0 [facility] Comment on above: Performed By: #### 5 7021-8 #### RENKUA LOPEZ ([id number]) [facility] ([facility]) [address] [place] [address] 76220 MCH (RBC) [Entitic mass] 25.6 pg Low 26.0-34.0 [facility] Comment on above: Performed By: #### 5 7021-8 #### RENUKA LOPEZ ([id number]) [facility] ([facility]) [address] [place] [address] 57506 MCHC (RBC) [Mass/Vol] 31.6 g/dL Low 32.0-36.0 [facility] Comment on above: Performed By: #### 5 7021-8 #### RENUKA LOPEZ ([id number]) [facility] ([facility]) [address] [place] [address] 09309 MCV (RBC) [Entitic vol] 81 fL Normal 80-100 [facility] Comment on above: Performed By: #### 5 7021-8 #### RENUKA LOPEZ ([id number]) [facility] ([facility]) [address] [place] [address] 08446 Monocytes (Bld) [#/Vol] 0.57 x10*3/uL Normal 0.10-1.00 [facility] Comment on above: Performed By: #### 5 7021-8 #### RENUKA LOPEZ ([id number]) [facility] ([facility]) [address] [place] [address] 23121 Monocytes/100 WBC (Bld) 12.2 % Normal 2.0-10.0 [facility] Comment on above: Performed By: #### 5 7021-8 #### RENUKA LOPEZ ([id number]) [facility] ([facility]) [address] [place] [address] 45553 Neutrophils (Bld) [#/Vol] 3.02 x10*3/uL Normal 1.20-7.70 [facility] Comment on above: Result Comment: Perc ent differential counts (%) should be interpreted in the context of the absolute cell counts (cells/uL). Performed By: #### 5 7021-8 #### RENUKA LOPEZ ([id number]) [facility] ([facility]) [address] [place] [address] 66323 Neutrophils/100 WBC (Bld) 64.8 % Normal 40.0-80.0 [facility] Comment on above: Performed By: #### 5 7021-8 #### RENUKA LOPEZ ([id number]) [facility] ([facility]) [address] [place] [address] 70770 Nucleated RBC/100 WBC (Bld) [Ratio] 0.0 /100 WBCs Normal 0.0-0.0 [facility] Comment on above: Performed By: #### 5 7021-8 #### RENUKA LOPEZ ([id number]) [facility] ([facility]) [address] [place] [address] 02356 Platelets (Bld) [#/Vol] 201 x10*3/uL Normal 150-450 [facility] Comment on above: Performed By: #### 5 7021-8 #### RENUKA LOPEZ ([id number]) [facility] ([facility]) [address] [place] [address] 82824 RBC (Bld) [#/Vol] 4.33 x10*6/uL Normal 4.00-5.20 [facility] Comment on above: Performed By: #### 5 7021-8 #### RENUKA LOPEZ ([id number]) [facility] ([facility]) [address] [place], [place] [phone] WBC (Bld) [#/Vol] 4.7 x10*3/uL Normal 4.4-11.3 [facility] Comment on above: Performed By: #### 5 7021-8 #### RENUKA LOPEZ ([id number]) [facility] ([facility]) [address] [place] [address] HCG ( test) IA.rapi d Ql (U)Ordered By: Shawna Rodriguez on 10-30-2024 HCG ( test) Ql (U) Negative NEGATIVE [facility] Interpretation and review of laboratory results Normal [facility] HCG ( test) IA.rapi d Ql (U)on 10-30-2024 HCG ( test) Ql (U) Negative Normal NEGATIVE [facility] Comment on above: Performed By: #### 8 0384-1 #### RENUKA LOPEZ ([id number]) [facility] ([facility]) [address] [place] [address] HCG ( test) Ql (U)o n 07-06-2024 Interpretation and review of laboratory results Abnormal [facility] Work Phone: Preg Test, Ur Positive Abnormal Negative [facility] Work Phone: [facility] Work Phone: US Pelvis transvaginalon CRL 15.8 mm [facility] Work Phone: Comment on above: Live intrauterine pr egnancy at 8 weeks gestation which is consistent with LMP. EDC February 13, 2025 Live intrauterine at 8 weeks gestation consistent with LMP. EDC February 13, 2025 [facility] Work Phone: [facility] Work Phone: Radiology Study observation (narrative) [facility] Work Phone: Juan Pablo 06-30-2024 CNPN Telephone (OBGYWM) -------- DEBI VERDUZCO ([id number]) 2000 F Date Time Provider Department 06/30/24 ANA CALLAWAY During your visit today, we recorded the following information about you: Jennifer Dewey RN 06/30/2024 12:18 PM Signed Left message for patient to return phone call to complete nurse intake questions for her upcoming appointment. Patient has an appointment with Ana Callaway for NOB appointment. Allergies As of Date: 06/30/2024 (Not on File) Date Reviewed: Never Reviewed Reason for Visit: 07/07 NOB Intake Questions [Other] Problem List As Of Date: 06/30/2024 (None) Encounter Status:Closed by IESHA EDDY on 07/07/24 Normal [facility] XR FOOT LEFT 3+ VIEWSon XR FOOT LEFT 3+ VIEWS Interpreted By: Shae Jules, STUDY: Left foot dated 05/02/2024. INDICATION: Signs/Symptoms:ATTN GREAT AND 2ND TOES COMPARISON: None. ACCESSION NUMBER(S): [id number] ORDERING CLINICIAN: FILEMON RUIZ TECHNIQUE: Three views of the left foot. AP radiographs of the 1st and 2nd toe. FINDINGS: No fracture or dislocation is evident. No ankle joint effusion is evident. There are some foci of irregular density along the nail of the 1st toe. IMPRESSION: 1. No osseous injury is evident. 2. Irregular foci of increased density along the nail of the 1st digit which may represent debris under the nail. Knowledge of any nail injury may be helpful. MACRO: None Signed by: Shae Dawn 05/02/2024 9:54 AM Dictation workstation: [id number] [facility] COLONOSCOPYon 03-05-2024 Colonoscopy Table formatting fro m the original result was not included. Impression Mild erythematous mucosa in the terminal ileum; performed cold forceps biopsy The entire colon appeared normal. Performed pancolonic forceps biopsies Findings Mild, patchy erythematous mucosa in the terminal ileum; no bleeding was identified; performed cold forceps biopsy The entire colon appeared normal.; Performed multiple random pancolonic forceps biopsies Recommendation Await pathology results Follow up with PCP Indication Colitis Staff Staff Role No Staff Documented Medications See Anesthesia Record. Preprocedure A history and physical has been performed, and patient medication allergies have been reviewed. The patient's tolerance of previous anesthesia has been reviewed. The risks and benefits of the procedure and the sedation options and risks were discussed with the patient. All questions were answered and informed consent obtained. Details of the Procedure The patient underwent moderate sedation, which was administered by a sedation nurse and an anesthesia professional. The patient's blood pressure, ECG, ETCO2, heart rate, respirations, oxygen and level of consciousness were monitored throughout the procedure. A digital rectal exam was performed. A perianal exam was performed. The scope was introduced through the anus and advanced to the terminal ileum. Retroflexion was performed in the rectum. The total BBPS score was 6. Bowel prep was adequate. The patient's estimated blood loss was minimal (<5 mL). The procedure was not difficult. The patient tolerated the procedure well. There were no apparent adverse events. Events Procedure Events Event Event Time ENDO SCOPE IN TIME 03/05/2024 7:29 AM ENDO CECUM REACHED 03/05/2024 7:32 AM ENDO SCOPE OUT TIME 03/05/2024 7:42 AM Specimens ID Type Source Tests Collected by Time 1 : ILEUM BX Tissue ILEUM BIOPSY SURGICAL PATHOLOGY EXAM Rubina Benitez RN 03/05/2024 0734 2 : Tissue COLON - RANDOM BIOPSY SURGICAL PATHOLOGY EXAM Rubina Benitez RN 03/05/2024 0735 Procedure Location [address] [address] Referring Provider Forrest Mohr MD Procedure Provider Forrest Mohr MD [facility] Colonoscopy studyon 03-05-20 24 Table formatting fro m the original result was not included. Impression Mild erythematous mucosa in the terminal ileum; performed cold forceps biopsy The entire colon appeared normal. Performed pancolonic forceps biopsies Findings Mild, patchy erythematous mucosa in the terminal ileum; no bleeding was identified; performed cold forceps biopsy The entire colon appeared normal.; Performed multiple random pancolonic forceps biopsies Recommendation Await pathology results Follow up with PCP Indication Colitis Staff Staff Role No Staff Documented Medications See Anesthesia Record. Preprocedure A history and physical has been performed, and patient medication allergies have been reviewed. The patient's tolerance of previous anesthesia has been reviewed. The risks and benefits of the procedure and the sedation options and risks were discussed with the patient. All questions were answered and informed consent obtained. Details of the Procedure The patient underwent moderate sedation, which was administered by a sedation nurse and an anesthesia professional. The patient's blood pressure, ECG, ETCO2, heart rate, respirations, oxygen and level of consciousness were monitored throughout the procedure. A digital rectal exam was performed. A perianal exam was performed. The scope was introduced through the anus and advanced to the terminal ileum. Retroflexion was performed in the rectum. The total BBPS score was 6. Bowel prep was adequate. The patient's estimated blood loss was minimal (<5 mL). The procedure was not difficult. The patient tolerated the procedure well. There were no apparent adverse events. Events Procedure Events Event Event Time ENDO SCOPE IN TIME 03/05/2024 7:29 AM ENDO CECUM REACHED 03/05/2024 7:32 AM ENDO SCOPE OUT TIME 03/05/2024 7:42 AM Specimens ID Type Source Tests Collected by Time 1 : ILEUM BX Tissue ILEUM BIOPSY SURGICAL PATHOLOGY EXAM Rubina Benitez RN 03/05/2024 0734 2 : Tissue COLON - RANDOM BIOPSY SURGICAL PATHOLOGY EXAM Rubina Benitez RN 03/05/2024 0735 Procedure Location [address] [facility] [address] Referring Provider Forrest Mohr MD Procedure Provider Forrest Mohr MD [facility] Work Phone: [facility] Work Phone: Radiology Study observation (narrative) [facility] Work Phone: Surgical pathology studyon 0 03-05-2024 Surgical pathology study Pathology report.total SEE COMMENT Surgical Pathology Case: [id number] Authorizing Provider: Forrest Mohr MD Collected: 03/05/2024 0734 Ordering Location: [facility] Received: 03/05/[address] [place] [address] Pathologist: Shae Sanchez MD Specimens: A) - ILEUM BIOPSY, ILEUM BX B) - COLON - RANDOM BIOPSY Path report.final diagnosis SEE COMMENT A. TERMINAL ILEUM, BIOPSIES: - LYMPHOID HYPERPLASIA; NEGATIVE FOR ILEITIS AND DYSPLASIA. - GRANULOMAS NOT PRESENT IN SUBMITTED MATERIAL. B. COLON, RANDOM BIOPSIES: - NO SIGNIFICANT HISTOPATHOLOGIC CHANGES; NEGATIVE FOR COLITIS AND DYSPLASIA. - GRANULOMAS NOT PRESENT IN SUBMITTED MATERIAL. Laboratory comment By the signature on this report, the individual or group listed as making the Final Interpretation/Diagnosis certifies that they have reviewed this case. Path report.relevant Hx Rectal bleeding; abdominal pain Path report.gross observation SEE COMMENT A: Received in formalin, labeled with the patient's name and hospital number and ileum BX, are 2 fragments of mario, soft tissue aggregating to 0.4 x 0.3 x 0.2 cm. The specimen is submitted in toto in one cassette. LMP B: Received in formalin, labeled with the patient's name and hospital number and colon random BX, are multiple fragments of mario, soft tissue aggregating to 0.8 x 0.6 x 0.2 cm. The specimen is submitted in toto in 2 cassettes. LMP Path report.microscopic observation Microscopic slides examined. Normal [facility] CBC W Auto Differential pane l (Bld)on 01-30-2024 Basophils (Bld) [#/Vol] 0.05 10*3/uL [facility] Basophils/100 WBC (Bld) 0.5 % 0.0 - 2.0 % [facility] Eosinophils (Bld) [#/Vol] 0.07 10*3/uL [facility] Eosinophils/100 WBC (Bld) 0.7 % 0.0 - 6.0 % [facility] Erythrocyte distribution width (RBC) [Ratio] 13.1 % 11.5 - 14.5 % [facility] Hematocrit (Bld) [Volume fraction] 38.0 % 36.0 - 46.0 % [facility] Hemoglobin (Bld) [Mass/Vol] 12.3 g/dL 12.0 - 16.0 g/dL [facility] Immature granulocytes (Bld) [#/Vol] 0.03 10*3/uL [facility] Immature granulocytes/100 WBC (Bld) 0.3 % 0.0 - 0.9 % [facility] Comment on above: Immature Granulocyte Count (IG) includes promyelocytes, myelocytes and metamyelocytes but does not include bands. Percent differential counts (%) should be interpreted in the context of the absolute cell counts (cells/UL). Lymphocytes (Bld) [#/Vol] 1.53 10*3/uL [facility] Lymphocytes/100 WBC (Bld) 15.7 % 13.0 - 44.0 % [facility] MCH (RBC) [Entitic mass] 28.8 pg 26.0 - 34.0 pg [facility] MCHC (RBC) [Mass/Vol] 32.4 g/dL 32.0 - 36.0 g/dL [facility] MCV (RBC) [Entitic vol] 89 fL 80 - 100 fL [facility] Monocytes (Bld) [#/Vol] 0.64 10*3/uL [facility] Monocytes/100 WBC (Bld) 6.6 % 2.0 - 10.0 % [facility] Neutrophils (Bld) [#/Vol] 7.40 10*3/uL [facility] Comment on above: Percent differential counts (%) should be interpreted in the context of the absolute cell counts (cells/uL). Neutrophils/100 WBC (Bld) 76.2 % 40.0 - 80.0 % [facility] Nucleated RBC/100 WBC (Bld) [Ratio] 0.0 % [facility] Platelets (Bld) [#/Vol] 203 10*3/uL [facility] RBC (Bld) [#/Vol] 4.27 10*6/uL [facility] WBC (Bld) [#/Vol] 9.7 10*3/uL [facility] CT Abdomen and Pelvis W cont rast Bubba 01-30-2024 1. There is a sugges tion of thickening and submucosal edema of the distal transverse colon descending colon and sigmoid colon. There is no haziness in the pericolonic fat. This could be pseudo thickened from nondistention but could represent a true thickening. Consider infectious colitis or Crohn's disease. 2. Bilateral punctate nonobstructing intrarenal calculi. CT scan dated 03/08/2023 demonstrated multiple calculi in the medullary pyramids and patient may have medullary nephrocalcinosis and medullary sponge kidney. MACRO: None Signed by: Avelina Eng 01/30/2024 12:37 PM Dictation workstation: [id number] [facility] Interpreted By: Avelina Gomze, STUDY: CT ABDOMEN PELVIS W IV CONTRAST; 01/30/2024 12:30 pm INDICATION: Signs/Symptoms:abdominal pain, rectal bleeding. COMPARISON: 03/08/2023 ACCESSION NUMBER(S): [id number] ORDERING CLINICIAN: SHAE PASTOR TECHNIQUE: CT of the abdomen and pelvis was performed. 75 mL Omnipaque 350 FINDINGS: LOWER CHEST: Images of the lung bases show no infiltrate or pleural fluid. ABDOMEN: LIVER: There is no hepatic mass. BILE DUCTS: There is no intrahepatic, common hepatic or common bile ductal dilatation. GALLBLADDER: The gallbladder is unremarkable. PANCREAS: The pancreas is unremarkable. SPLEEN: The spleen is unremarkable. There is no splenic mass or splenomegaly. ADRENAL GLANDS: The adrenal glands are unremarkable. KIDNEYS AND URETERS: The kidneys function symmetrically. The kidneys demonstrate no mass. There are bilateral punctate nonobstructing intrarenal calculi. BOWEL: There is the suggestion of thickening and submucosal edema of the distal transverse colon and descending colon as well as the sigmoid colon. There is no haziness in the pericolonic fat. In part this could be pseudo thickened from nondistention but could represent a true thickening. Findings could represent infectious colitis. This could represent Crohn's disease. The appendix is normal VESSELS: The abdominal and pelvic vessels are unremarkable. There is a retroaortic left renal vein, a normal variant. PERITONEUM/RETROPERITONE UM/LYMPH NODES: There is no retroperitoneal or pelvic adenopathy. There is no ascites. ABDOMINAL WALL: The abdominal wall is unremarkable. BONE AND SOFT TISSUE: There is no acute osseous finding. There is no soft tissue abnormality. [facility] Avelina Eng M D - 01/30/2024 Interpreted By: Avelina Eng, STUDY: CT ABDOMEN PELVIS W IV CONTRAST; 01/30/2024 12:30 pm INDICATION: Signs/Symptoms:abdominal pain, rectal bleeding. COMPARISON: 03/08/2023 ACCESSION NUMBER(S): [id number] ORDERING CLINICIAN: SHAE PASTOR TECHNIQUE: CT of the abdomen and pelvis was performed. 75 mL Omnipaque 350 FINDINGS: LOWER CHEST: Images of the lung bases show no infiltrate or pleural fluid. ABDOMEN: LIVER: There is no hepatic mass. BILE DUCTS: There is no intrahepatic, common hepatic or common bile ductal dilatation. GALLBLADDER: The gallbladder is unremarkable. PANCREAS: The pancreas is unremarkable. SPLEEN: The spleen is unremarkable. There is no splenic mass or splenomegaly. ADRENAL GLANDS: The adrenal glands are unremarkable. KIDNEYS AND URETERS: The kidneys function symmetrically. The kidneys demonstrate no mass. There are bilateral punctate nonobstructing intrarenal calculi. BOWEL: There is the suggestion of thickening and submucosal edema of the distal transverse colon and descending colon as well as the sigmoid colon. There is no haziness in the pericolonic fat. In part this could be pseudo thickened from nondistention but could represent a true thickening. Findings could represent infectious colitis. This could represent Crohn's disease. The appendix is normal VESSELS: The abdominal and pelvic vessels are unremarkable. There is a retroaortic left renal vein, a normal variant. PERITONEUM/RETROPERITONE UM/LYMPH NODES: There is no retroperitoneal or pelvic adenopathy. There is no ascites. ABDOMINAL WALL: The abdominal wall is unremarkable. BONE AND SOFT TISSUE: There is no acute osseous finding. There is no soft tissue abnormality. IMPRESSION: 1. There is a suggestion of thickening and submucosal edema of the distal transverse colon descending colon and sigmoid colon. There is no haziness in the pericolonic fat. This could be pseudo thickened from nondistention but could represent a true thickening. Consider infectious colitis or Crohn's disease. 2. Bilateral punctate nonobstructing intrarenal calculi. CT scan dated 03/08/2023 demonstrated multiple calculi in the medullary pyramids and patient may have medullary nephrocalcinosis and medullary sponge kidney. MACRO: None Signed by: Avelina Eng 01/30/2024 12:37 PM Dictation workstation: [id number] [facility] Work Phone: Radiology Study observation (narrative) [facility] Work Phone: CT Abdomen and Pelvis W cont rast IVOrdered By: Avelina Eng on 01-30-2024 [facility] Work Phone: Comprehensive metabolic 2000 panelon 01-30-2024 Albumin BCP dye [Mass/Vol] 4.2 g/dL 3.4 - 5.0 g/dL [facility] ALP [Catalytic activity/Vol] 81 U/L 33 - 110 U/L [facility] ALT With P-5'-P [Catalytic activity/Vol] 10 U/L 7 - 45 U/L [facility] Comment on above: Patients treated wit h Sulfasalazine may generate falsely decreased results for ALT. Anion gap [Moles/Vol] 10 mmol/L 10 - 2 0 mmol/L [facility] AST With P-5'-P [Catalytic activity/Vol] 14 U/L 9 - 39 U/L [facility] Bilirubin [Mass/Vol] 0.3 mg/dL 0.0 - 1 .2 mg/dL [facility] Calcium [Mass/Vol] 9.3 mg/dL 8.6 - 10. 3 mg/dL [facility] Chloride [Moles/Vol] 108 mmol/L High 98 - 10 7 mmol/L [facility] CO2 [Moles/Vol] 25 mmol/L 21 - 32 mmol/L [facility] Creatinine [Mass/Vol] 0.57 mg/dL 0.50 - 1.05 mg/dL [facility] eGFR - PINF [facility] Comment on above: Calculations of nilson mated GFR are performed using the 2020 CKD-EPI Study Refit equation without the race variable for the IDMS-Traceable creatinine methods. https://jasn.asnjournals.org/content/early//ASN.65237 83422 Glucose [Mass/Vol] 94 mg/dL 74 - 99 mg/dL [facility] Interpretation and review of laboratory results Abnormal [facility] Potassium [Moles/Vol] 3.7 mmol/L 3.5 - 5.3 mmol/L [facility] Protein [Mass/Vol] 6.8 g/dL 6.4 - 8.2 g/dL [facility] Sodium [Moles/Vol] 139 mmol/L 136 - 145 mmol/L [facility] Urea nitrogen [Mass/Vol] 12 mg/dL 6 - 23 mg/dL [facility] HCG.beta subunit Qnon 2023 Interpretation and review of laboratory results Normal [facility] Total HCG measuremen t is performed using the [employer] [place] Access Immunoassay which detects intact HCG and free beta HCG subunit. This test is not indicated for use as a tumor marker. HCG testing is performed using a different test methodology at [facility] than other [facility]. Direct result comparison should only be made within the same method. [facility] Human Chorionic Gonadotropin , Serum Quantitativeon 01-30-2024 HCG.beta subunit Qn [facility] 01-30-2024 Lactate [Moles/Vol] 0.9 mmol/L 0.4 - 2. 0 mmol/L [facility] Lipaseon 01-30-2024 Lipase [Catalytic activity/Vol] 20 U/L 9 - 82 U/L [facility] No Panel Informationon 01-29 Interpretation and review of laboratory results Normal [facility] Venipuncture immedia tely after or during the administration of Metamizole may lead to falsely low results. Testing should be performed immediately prior to Metamizole dosing. [facility] Urinalysis complete W Reflex Culture panel (U)on 01-30-2024 Appearance (U) Clear Clear [facility] Bilirubin (U) [Mass/Vol] Negative NEGATIVE [facility] Color (U) Straw Straw, Yellow [facility] Glucose Auto test strip (U) [Mass/Vol] Negative NEGATIVE mg/dL [facility] Interpretation and review of laboratory results Normal [facility] Ketones (U) [Mass/Vol] Negative NEGAT [place] mg/dL [facility] Leukocyte esterase Auto test strip Ql (U) Negative NEGATIVE [facility] Nitrite Auto test strip Ql (U) Negative NEGATIVE [facility] pH (U) 6.0 [pH] 5.0, 5.5, 6.0, 6.5, 7.0, 7.5, 8.0 [facility] Protein (U) [Mass/Vol] Negative NEGAT [place] mg/dL [facility] RBC (U) [#/Vol] Negative NEGATIVE [facility] Specific gravity (U) [Rel density] 1.013 1.005 - 1.035 [facility] Urobilinogen (U) [Mass/Vol] mg/dL NINF - 2.0 mg/dL [facility] ACETAMINOPHENon 12-27-2022 Acetaminophen [Mass/Vol] ug/mL Normal 10.0 - 30.0 [facility] Comment on above: Performed By: #### A CETA ####[place] [address] ALCOHOLon 12-27-2022 Ethanol [Mass/Vol] mg/dL Normal [facility] Comment on above: Result Comment: FOR MEDICAL USE ONLY. . REF VALUES <10 Performed By: #### A LC ####[place] [address] CBC AND DIFFERENTIALon 12-27 % AUTOMATED IMMATURE GRAN 0.4 % Normal 0.0 - 0.9 [facility] Comment on above: Result Comment: Arielle ture Granulocyte Count (IG) includes promyelocytes, myelocytes and metamyelocytes but does not include bands. Percent differential counts (%) should be interpreted in the context of the absolute cell counts (cells/L). Performed By: #### C BCDF ####[address] [address] Basophils (Bld) [#/Vol] 0.05 10*3/uL Normal 0.00 - 0.10 [facility] Comment on above: Performed By: #### C BCDF ####[address] [address] Basophils/100 WBC (Bld) 0.5 % Normal 0.0 - 2.0 [facility] Comment on above: Performed By: #### C BCDF ####[address] [address] Eosinophils (Bld) [#/Vol] 0.09 10*3/uL Normal 0.00 - 0.70 [facility] Comment on above: Performed By: #### C BCDF ####[address] [address] Eosinophils/100 WBC (Bld) 1.0 % Normal 0.0 - 6.0 [facility] Comment on above: Performed By: #### C BCDF ####[address] [address] Erythrocyte distribution width (RBC) [Ratio] 12.8 % Normal 11.5 - 14.5 [facility] Comment on above: Performed By: #### C BCDF ####[address] [address] Hematocrit (Bld) [Volume fraction] 39.1 % Normal 36.0 - 46.0 [facility] Comment on above: Performed By: #### C BCDF ####[address] [address] Hemoglobin (Bld) [Mass/Vol] 12.8 g/dL Normal 12.0 - 16.0 [facility] Comment on above: Performed By: #### C BCDF ####[address] [address] Lymphocytes (Bld) [#/Vol] 2.21 10*3/uL Normal 1.20 - 4.80 [facility] Comment on above: Performed By: #### C BCDF ####[address] [address] Lymphocytes/100 WBC (Bld) 23.5 % Normal 13.0 - 44.0 [facility] Comment on above: Performed By: #### C BCDF ####[address] [address] MCHC (RBC) [Mass/Vol] 32.7 g/dL Normal 32.0 - 36.0 [facility] Comment on above: Performed By: #### C BCDF ####[address] [address] MCV (RBC) [Entitic vol] 87 fL Normal 80 - 100 [facility] Comment on above: Performed By: #### C BCDF ####[address] [address] Monocytes (Bld) [#/Vol] 0.95 10*3/uL Normal 0.10 - 1.00 [facility] Comment on above: Performed By: #### C BCDF ####[address] [address] Monocytes/100 WBC (Bld) 10.1 % Normal 2.0 - 10.0 [facility] Comment on above: Performed By: #### C BCDF ####[address] [address] Neutrophils (Bld) [#/Vol] 6.07 10*3/uL Normal 1.20 - 7.70 [facility] Comment on above: Result Comment: Perc ent differential counts (%) should be interpreted in the context of the absolute cell counts (cells/L). Performed By: #### C BCDF ####[address] [address] Neutrophils/100 WBC (Bld) 64.5 % Normal 40.0 - 80.0 [facility] Comment on above: Performed By: #### C BCDF ####[address] [address] Platelets (Bld) [#/Vol] 243 10*3/uL Normal 150 - 450 [facility] Comment on above: Performed By: #### C BCDF ####[address] [address] RBC 4.50 x10E12/L Normal 4.00 - 5.20 [facility] Comment on above: Performed By: #### C BCDF ####[address] [address] WBC (Bld) [#/Vol] 9.4 10*3/uL Normal 4.4 - 11.3 [facility] Comment on above: Performed By: #### C BCDF ####[address] [address] COMPREHENSIVE PANELon 2022 Albumin [Mass/Vol] 4.4 g/dL Normal 3.4 - 5.0 [facility] Comment on above: Performed By: #### C MP ####[address] [address] ALP [Catalytic activity/Vol] 102 U/L Normal 33 - 110 [facility] Comment on above: Performed By: #### C MP ####[address] [address] ALT [Catalytic activity/Vol] 13 U/L Normal 7 - 45 [facility] Comment on above: Result Comment: Lynsey ents treated with Sulfasalazine may generate falsely decreased results for ALT. Performed By: #### C MP ####[address] [address] Anion gap [Moles/Vol] 11 mmol/L Normal 10 - 20 [facility] Comment on above: Performed By: #### C MP ####[address] [address] AST [Catalytic activity/Vol] 16 U/L Normal 9 - 39 [facility] Comment on above: Performed By: #### C MP ####[address] [address] Bilirubin [Mass/Vol] 0.5 mg/dL Normal 0.0 - 1.2 [facility] Comment on above: Performed By: #### C MP ####[address] [address] Calcium [Mass/Vol] 9.5 mg/dL Normal 8.6 - 10.3 [facility] Comment on above: Performed By: #### C MP ####[address] [address] Chloride [Moles/Vol] 106 mmol/L Normal 98 - 107 [facility] Comment on above: Performed By: #### C MP ####[address] [address] Creatinine [Mass/Vol] 0.64 mg/dL Normal 0.50 - 1.05 [facility] Comment on above: Performed By: #### C MP ####[address] [address] eGFR FEMALE >90 Normal >90 [facility] Comment on above: Result Comment: CALC ULATIONS OF ESTIMATED GFR ARE PERFORMED USING THE 2020 CKD-EPI STUDY REFIT EQUATION WITHOUT THE RACE VARIABLE FOR THE IDMS-TRACEABLE CREATININE METHODS. https://jasn.asnjournals.org/content/early//ASN.96907 [address]187 Performed By: #### C MP ####[address] [address] Glucose [Mass/Vol] 66 mg/dL Low 74 - 99 [facility] Comment on above: Performed By: #### C MP ####[address] [address] HCO3 (Bld) [Moles/Vol] 27 mmol/L Normal 21 - 32 [facility] Comment on above: Performed By: #### C MP ####[address] [address] Potassium [Moles/Vol] 3.5 mmol/L Normal 3.5 - 5.3 [facility] Comment on above: Performed By: #### C MP ####[place] [address] Protein [Mass/Vol] 7.2 g/dL Normal 6.4 - 8.2 [facility] Comment on above: Performed By: #### C MP ####[place] [address] Sodium [Moles/Vol] 140 mmol/L Normal 136 - 145 [facility] Comment on above: Performed By: #### C MP ####[place] [address] Urea nitrogen [Mass/Vol] 11 mg/dL Normal 6 - 23 [facility] Comment on above: Performed By: #### C MP ####[place] [address] DRUG SCREEN,URINEon 12-28-19 AMPHETAMINE SCREEN,U Negative Normal NEGATIVE [facility] Comment on above: Result Comment: CUTO FF LEVEL: 500 NG/ML Cross-reactivity has been reported with high concentrations of the following drugs: buproprion, chloroquine, chlorpromazine, ephedrine, mephentermine, fenfluramine, phentermine, phenylpropanolamine, pseudoephedrine, and propranolol. Performed By: #### D RUG3 #### [place] [address] BARBITURATES SCREEN,U Negative Normal NEGATIVE [facility] Comment on above: Result Comment: CUTO FF LEVEL: 200 NG/ML Performed By: #### D RUG3 #### [place] [address] BENZODIAZEPINES SCREEN,U Negative Normal NEGATIVE [facility] Comment on above: Result Comment: CUTO FF LEVEL: 200 NG/ML Performed By: #### D RUG3 #### [place] [address] CANNABINOIDS SCREEN,U Negative Normal NEGATIVE [facility] Comment on above: Result Comment: CUTO FF LEVEL: 50 NG/ML Performed By: #### D RUG3 #### [place] [address] COCAINE METABOLITE SCREEN,U Negative Normal NEGATIVE [facility] Comment on above: Result Comment: CUTO FF LEVEL: 150 NG/ML Performed By: #### D RUG3 #### [place] [address] DRUG SCREEN COMMENT SEE BELOW [facility] Comment on above: Result Comment: Drug screen results are presumptive and should not be used to assess compliance with prescribed medication. Contact the performing [facility] laboratory to add-on definitive confirmatory testing if clinically indicated. . Toxicology screening results are reported qualitatively. The concentration must be greater than or equal to the cutoff to be reported as positive. The concentration at which the screening test can detect an individual drug or metabolite varies. The absence of expected drug(s) and/or drug metabolite(s) may indicate non-compliance, inappropriate timing of specimen collection relative to drug administration, poor drug absorption, diluted/adulterated urine, or limitations of testing. For medical purposes only; not valid for forensic use. . Interpretive questions should be directed to the laboratory medical directors. Performed By: #### D RUG3 #### [place] [address] FENTANYL SCREEN,URINE Negative Normal NEGATIVE [facility] Comment on above: Result Comment: CUTO FF LEVEL: 5 NG/ML Performed By: #### D RUG3 #### [place] [address] METHADONE SCREEN,U Negative Normal NEGATIVE [facility] Comment on above: Result Comment: CUTO FF LEVEL: 150 NG/ML The metabolite A-bjpjn-bjcfisaehwbjkh (LAAM) is not detected by this method in concentrations that would be found in the urine of patients on LAAM therapy. Performed By: #### D RUG3 #### [place] [address] OPIATES SCREEN,U Negative Normal NEGATIVE [facility] Comment on above: Result Comment: CUTO FF LEVEL: 300 NG/ML The opiate screen does not detect fentanyl, meperidine, or tramadol. Oxycodone is not consistently detected (refer to Oxycodone Screen, Urine result). Performed By: #### D RUG3 #### [place] [address] OXYCODONE SCREEN,U Negative Normal NEGATIVE [facility] Comment on above: Result Comment: CUTO FF LEVEL: 100 NG/ML This test will accurately detect both oxycodone and oxymorphone. Performed By: #### D RUG3 #### [place] [id number] PCP SCREEN,U Negative Normal NEGATIVE [facility] Comment on above: Result Comment: CUTO FF LEVEL: 25 NG/ML Cross-reactivity has been reported with dextromethorphan. Performed By: #### D RUG3 #### [place] [id number] HCG,URINEon 12-27-2022 Beta HCG ( test) Ql (U) Negative Normal Negative [facility] Comment on above: Performed By: #### H CGU ####[place] [id number] Provider Note - ED v3on 11-30 Provider Note - ED v3 Provider Note: Chart Review: ED NOTES ED NOTES: HPI: Patient presents ER today concerned about possible overdose. Apparently she took 625 mg tabs of Zoloft and a handful of aspirin of unknown dosage. She apparently had recently broken up with her boyfriend and was upset about this. She was attempting to kill herself. Medical/Family HX: Depression, miscarriage about a month ago Physical Exam I have reviewed the triage vital signs. Const: Well nourished, well developed, appears stated age, no acute distress Eyes: PERRL, EOM intact, no conjunctival injection, vision grossly normal HENT: Neck supple without meningismus , Moist mucous membranes, no pharyengeal swelling or exudate CV: Regular rate and rhythm, Warm, well-perfused extremities. Chest non tender RESP: Lungs clear bilaterally, Unlabored respiratory effort GI: soft, non-tender, non-distended, no masses : MSK: No gross deformities appreciated Back: Non tender, no pain with ROM Skin: Warm, dry. No rashes Neuro: Alert and oriented x4, GCS 15 , clinical cytogeneticist scientist II-XII grossly intact. Sensation and motor function of extremities grossly intact. Psych: Appropriate mood and affect. I have reviewed and confirmed nurses/medics notes for patient past, social and family history. Portions of this note were dictated by speech recognition. An attempt at proof reading was made to minimize errors. Minor errors in tariff compiling clerk may be present. HISTORY OF PRESENTING ILLNESS DEBI is a 22 year old Female and was seen by me at 27-Dec-2022 15:51 for a chief complaint of suicidal attempt (Amb to ED with report of suicide attempt around 1315 today after break up with boyfriend. She states that she took six 25mG Zoloft tabs and a handful of Aspirin. She denies any HI. Is calm and cooperative. Security notified, pt changed to paper scrubs and 1:1 obs started. Pt belongings locked in pt locker.)(1). Triage Information: Most recent Vital Sign Value Date Temp (F): 98.2 12-27-2022 16:01 Temp (C): 36.7 12-27-2022 16:01 Heart Rate (beats/min): 80 12-27-2022 16:01 Respirations (breaths/min): 16 12-27-2022 16:01 SpO2 (%): 99 12-27-2022 16:01 BP Systolic (mm Hg): 123 12-27-2022 16:01 BP Diastolic (mm Hg): 74 12-27-2022 16:01 PAST MEDICAL HISTORY ALLERGIES/INTOLERANCES: No Known Allergies HEALTH HISTORY: No documented data. OUTPATIENT MEDICATIONS: Home Medications Review Status for Reconciliation: N/A Med Status: Patient Currently Takes Medications Drug Name: Lexapro 20 mg oral tablet Instructions: 1 tab(s) orally once a day Drug Name: dicloxacillin 500 mg oral capsule Instructions: 1 cap(s) orally 4 times a day (starting 11/07/22) SIGNIFICANT EVENTS: Past Medical History Description:kidney stones Description:depression CRITICAL CARE RESULTS: Recent Lab Results: I have reviewed these laboratory results: Acetylsalicylic Acid Level, Serum Trending View [id number] 18:49:00 27-Dec-2022 16:12:00 Acetylsalicylic Acid Level, Serum<3 3 L Drug Screen, Urine 27-Dec-2022 16:39:00 ResultValue Comments. SEE BELOW Drug screen results are presumptive and should not be used to assess compliance with prescribed medication. Contact the performing [facility] laboratory to add-on definitive confirmatory testing if clinically indicated. .Toxicology scre Amphetamine Screen, Urine PRESUMPTIVE NEGATIVE CUTOFF LEVEL: 500 NG/ML Cross-reactivity has been reported with high concentrations of the following drugs: buproprion, chloroquine, chlorpromazine, ephedrine, mephentermine, fenfluramine, phentermine, phenylpropanolamine Barbiturate Screen, Urine PRESUMPTIVE NEGATIVE PRESUMPTIVE NEGATIVE CUTOFF LEVEL: 200 NG/ML Benzodiazepine Screen, Urine PRESUMPTIVE NEGATIVE PRESUMPTIVE NEGATIVE CUTOFF LEVEL: 200 NG/ML Cannabinoid Screen, Urine PRESUMPTIVE NEGATIVE PRESUMPTIVE NEGATIVE CUTOFF LEVEL: 50 NG/ML Cocaine Metabolite Screen, Urine PRESUMPTIVE NEGATIVE PRESUMPTIVE NEGATIVE CUTOFF LEVEL: 150 NG/ML Fentanyl Screen, Urine PRESUMPTIVE NEGATIVE PRESUMPTIVE NEGATIVE CUTOFF LEVEL: 5 NG/ML Methadone Screen, Urine PRESUMPTIVE NEGATIVE CUTOFF LEVEL: 150 NG/ML The metabolite I-mgnoh-urpqujofhpjvts (LAAM) is not detected by this method in concentrations that would be found in the urine of patients on LAAM therapy. Opiate Screen, Urine PRESUMPTIVE NEGATIVE CUTOFF LEVEL: 300 NG/ML The opiate screen does not detect fentanyl, meperidine, or tramadol. Oxycodone is not consistently detected (refer to Oxycodone Screen, Urine result). Oxycodone Screen, Urine (item) PRESUMPTIVE NEGATIVE CUTOFF LEVEL: 100 NG/ML This test will accurately detect both oxycodone and oxymorphone. PCP Screen, Urine PRESUMPTIVE NEGATIVE CUTOFF LEVEL: 25 NG/ML Cross-reactivity has been reported with dextromethorphan. Urine Test 27-Dec-2022 16:39:00 ResultValue HCG, Urine NEGATIVE Urinalysis 27-Dec-2022 1 (more content not included)... Normal [facility] SALICYLATEon 12-27-2022 SALICYLATE <3 Normal - [facility] Comment on above: Performed By: #### S ALIC ####[address] [address] SALICYLATE 3 mg/dL Low - 20 [facility] Comment on above: Performed By: #### S ALIC #### [address] [address] Triage - EDon 12-27-2022 Triage - ED Quick Triage: Are You no Have You Given In The Last 6 Weeksno Are You Currently Breastfeedingno The patient and/or guardian verbally acknowledges placement for services into the following (when Urgent Care Service hours are operating):emergency department Chart Review: ARRIVAL INFORMATION Mode of Arrival: private vehicle CHIEF COMPLAINT DEBI VERDUZCO is a Female patient with a chief complaint of suicidal attempt (Amb to ED with report of suicide attempt around 1315 today after break up with boyfriend. She states that she took six 25mG Zoloft tabs and a handful of Aspirin. She denies any HI. Is calm and cooperative. Security notified, pt changed to paper scrubs and 1:1 obs started. Pt belongings locked in pt locker.). Triage Date/Time: 27-Dec-2022 15:48 EDA: 2 Pain Rating (0-10): 0 = None Pain location: denies Vital Signs: Temperature: 98.2F ( 36.7C) taken temporal Blood Pressure: 123/74 Mean: Heart Rate: 80 Respiratory Rate: 16 Pulse Oximetry: 99% on room air, no respiratory support. Weight: 132.2 pounds. Calculated 60.0 kg. Ferdinand Coma Scale: Best Eye Response: (E4) spontaneous Best Motor Response: (M6) obeys commands Best Verbal Response: (V5) oriented Ferdinand Score: 15 Cough lasting greater than 3 weeks: no Allergies: no Mask applied: yes Last menstrual period: 14-Dec-2022 Patient has homicidal thoughts: no Symptoms Are POSITIVE For: depression and suicidal thoughts. Symptoms Are Negative For: agitated, anorexia, confusion, fatigue, hallucinations and withdrawn. Risk Screens Suicide Risk Screen In the Past Month: Have you wished you were or wished you could go to sleep and not wake up yes In the Past Month: Have you had any actual thoughts of killing yourself yes In the Past Month: Have you been thinking about how you might do this yes In the Past Month: Have you had these thoughts and had some intention of acting on them yes In the Past Month: Have you started to work out or worked out the details of how to kill yourself Do you intend to carry out this plan yes In Your Lifetime: Have you ever done anything, started to do anything, or prepared to do anything to end your life yes Was this within the past 3 months yes Suicide Risk Interventions Low Suicide Risk Interventions: consider behavioral health resources will be given at discharge Moderate Suicide Risk Interventions: Interventions initiated: comfort care provided, items from room which may be used to harm self removed, patient placed in an easily observable room with curtain remaining open, patient placed in gown and wanded, provider notified, remaining risks identified and mitigated, therapeutic diversion offered (puzzles, games, journaling, TV blank box) elopement risk identified; family/visitor advised to maintain control of own personal belongings in room; finger food diet enforced; home medication list collected and shared with provider; hourly behavioral assessment performed; patient observer at bedside, verbal handoff given; patient placed in psych safe room; personal belongings secured; treatment plan based on risk factors developed and visitors limited when necessary and personal items screened ancillary staff and police/security notified of elopement risk High Suicide Risk Interventions: patient under constant observation at all timesicon high Items removed from room: bedside table/carts, bulletin board push pins and tasks, cleaning solutions/chemicals, coat hangers, gloves, IV poles, linen bin, loose cords (monitor cords, electric, tubing), otoscope, oxygen/oxygen canister, plastic bags (including trash bags), suction regulators, sharp or glass objects, sharps container, and scissors Remaining risks identified and mitigated: bed/stretcher Treatment Plans: ED Safety Care Plan Mccoy Fall Scale Screening Has the patient fallen before (or is the patient in the ED as a result of a fall) has not had a fall Does the patient have an impaired gait does not have impaired gait Is the patient cognitively impaired not cognitively impaired Interventions: Mccoy Fall Interventions: LOW INTERVENTIONS: *patient oriented to surroundings and call system, * patient/family falls education completed and documented, *patients fall status communicated during bedside handoff, *whiteboard updated, *mode of toileting discussed with patient, *bed in low position with brakes locked, *call light in reach, * non-skid footwear TRAVEL HISTORY Travel History Coronavirus Screening: no exposure or symptoms Travel Exposure History: NO travel to International locations in the past 30 days PAIN Pain Scale Used: ROMULO Pain Rating (0-10): 0 = None Past Medical History: Past Medical History Reviewedyes depression: Past Medical History, Active Electronic Signatures: Kendal Shaw ( (more content not included)... Normal [facility] UA MICROSCOPICon 12-27-2022 Mucus Ql (Urine sed) 4+ /LPF Normal [facility] Comment on above: Performed By: #### S [facility] #### [place] [address] RBC 4 /HPF Normal 0-5 [facility] Comment on above: Performed By: #### S ALIC #### [place] [address] SQUAMOUS EPITH. CELLS 25 /HPF Normal [facility] Comment on above: Performed By: #### S ALIC #### [place] [address] WBC 12 /HPF Abnormal 0-5 [facility] Comment on above: Performed By: #### S ALIC #### [place] [address] URINALYSISon 12-27-2022 Appearance (U) SLT CLOUDY Normal CLEAR [facility] Comment on above: Performed By: #### U A ####[place] [address] Bilirubin Ql (U) Negative Normal NEGATIVE [facility] Comment on above: Performed By: #### U A ####[place] [address] Color (U) YELLOW Normal STRAW,YELLOW [facility] Comment on above: Performed By: #### U A ####[place] [address] Glucose Ql (U) Negative Normal NEGATIVE [facility] Comment on above: Performed By: #### U A ####[place] [address] Hemoglobin Ql (U) TRACE Abnormal NEGATIVE [facility] Comment on above: Performed By: #### U A ####[place] [address] Ketones Ql (U) Negative Normal NEGATIVE [facility] Comment on above: Performed By: #### U A ####[place] [address] Leukocyte esterase Test strip Ql (U) SMALL (1+) Abnormal NEGATIVE [facility] Comment on above: Performed By: #### U A ####[place] [address] Nitrite Ql (U) Negative Normal NEGATIVE [facility] Comment on above: Performed By: #### U A ####[address] [address] pH (U) 7.0 [pH] Normal 5.0 - 8.0 [facility] Comment on above: Performed By: #### U A ####[place] [id number] Protein Ql (U) 30 (1+) Abnormal NEGATIVE [facility] Comment on above: Performed By: #### U A ####[place] [id number] Specific gravity (U) [Rel density] 1.025 Normal 1.005 - 1.035 [facility] Comment on above: Performed By: #### U A ####[address] [address] Urobilinogen (U) [Mass/Vol] 0.2 mg/dL Normal 0.0 - 1.9 [facility] Comment on above: Result Comment: SOME PIGMENTS AND MEDICATIONS MAY CAUSE A FALSE POSITIVE UROBILINOGEN Performed By: #### U A ####[place] [id number] Covid 19 Resultson 3 SARS-CoV-2 (COVID-19) RNA YOEL+probe Ql (Unsp spec) NEGATIVE COVID-19 Test Coronaviruses are common world-wide and are the cause of many common colds. SARS-COV2 is a new coronavirus that began circulating worldwide in 2019 so we are calling it COVID-19. It has been estimated that four out of five patients with COVID-19 will recover at home without the need for medical attention. Symptoms of COVID-19 may include cough, fever, shortness of breath, loss of taste or smell and other flu-like symptoms including chills, sore muscles, sore throat, and headache. Severe illness is more common in older people and people with other health problems such as high blood pressure, obesity, and immune system problems. If the test is positive, you have COVID-19. You will be contacted by the ordering physicians office and instructed to remain on home isolation, in accordance with CDC guidelines. You may also be contacted by the [facility] to see if any of your close contacts may have been exposed to the virus and need to quarantine. If the test is negative, you likely do not have COVID-19 at this time, but you still may have a different illness that can spread to other people (like Influenza, or the Flu) and could still be at risk for getting COVID-19. We recommend that you stay away from other people to limit the spread of illness until your symptoms are improving and you are fever-free for 24 hours without the use of fever lowering medications such as acetaminophen or ibuprofen. No test is 100% accurate so if you are still concerned you may have COVID-19, talk to your doctor about the need to continue to stay away from others. Medicines Unless your provider told you not to use the following: Acetaminophen (Tylenol and others) is generally safe. Anti-inflammatory medications, such as Ibuprofen (Advil or Motrin) or Naproxen (Aleve) can also be used. Venw-ver-tdkcata cough and cold medicines can be used according to the instructions on the package. Some avlo-ipz-ptyndeh medicines also contain acetaminophen. Make sure you are not taking more than your recommended dose. For those not hospitalized, there is no specific treatment available for this illness. Antibiotics do not treat Coronaviruses. Follow-Up Follow up with your doctor by scheduling a virtual visit or consider follow-up at one of our urgent care fever clinics. If you are having difficulty breathing, or are very weak and having difficulty standing, this is a medical emergency. Call 911 or have someone take you to the nearest emergency room immediately. If possible, wear a facemask. Additional guidance from the CDC for patients who tested POSITIVE for COVID-19 How to isolate: Isolate yourself in a specific room at home and limit your contact with others. Use a separate bathroom from other members of the household, when possible. Leave home only to get essential medical care. Do not go to work, school or public areas. Avoid using public transportation, ride-sharing, or taxis. Restrict contact with pets and other animals. If you must care for your pet or be around animals while you are sick, wash your hands before and after your interaction and wear a facemask. Make sure that shared spaces in the home have good airflow, such as by an air conditioner or an opened window, weather permitting. Personal Hygiene Procedures: Wear a face mask when in the same room as other people or pets. If a face mask interferes with your breathing, others should wear a mask when sharing space with you. Frequent hand-washing: wash your hands with soap and water for at least 20 seconds. If soap and water are not available, use alcohol-based hand neonatal surgeon. Avoid touching your eyes, nose, and mouth with unwashed hands. Household Hygiene Procedures: Avoid sharing personal household items such as dishes, glassware, cups, eating utensils, towels or bedding with other people or pets in your home. After use, these items should be washed with soap and hot water. Disinfect all high-touch surfaces every day with antibacterial cleaning solutions such as Lysol wipes, bleach, cleansers, etc. High-touch surfaces include tabletops, doorknobs, bathroom fixtures, toilets, phones, keyboards, tablets and bedside tables. Immediately clean any surfaces that may have blood, poop or body fluids on them, using antibacterial cleaning solutions such as Lysol wipes, bleach, cleansers, etc. If clothing or bedding come into contact with blood, poop or body fluids, they should be washed immediately. Follow the directions on the laundry detergent and clothing labels but hot water is recommended when possible. Stopping home isolation precautions: If possible, consult your doctor before stopping home isolation precautions. According to the CDC, you can discontinue home isolation precautions when you have met both of these criteria: Your fever and respiratory symptoms have been gone for 24 pedrito (more content not included)... Normal [facility] CBC AND DIFFERENTIALon 11-06 % AUTOMATED IMMATURE GRAN 0.3 % Normal 0.0 - 0.9 [facility] Comment on above: Result Comment: Arielle ture Granulocyte Count (IG) includes promyelocytes, myelocytes and metamyelocytes but does not include bands. Percent differential counts (%) should be interpreted in the context of the absolute cell counts (cells/L). Performed By: #### S [facility] #### [place] [address] Basophils (Bld) [#/Vol] 0.04 10*3/uL Normal 0.00 - 0.10 [facility] Comment on above: Performed By: #### S ALIC #### [address] [address] Basophils/100 WBC (Bld) 0.6 % Normal 0.0 - 2.0 [facility] Comment on above: Performed By: #### S ALIC #### [address] [address] Eosinophils (Bld) [#/Vol] 0.10 10*3/uL Normal 0.00 - 0.70 [facility] Comment on above: Performed By: #### S ALIC #### [address] [address] Eosinophils/100 WBC (Bld) 1.4 % Normal 0.0 - 6.0 [facility] Comment on above: Performed By: #### S ALIC #### [address] [address] Erythrocyte distribution width (RBC) [Ratio] 12.9 % Normal 11.5 - 14.5 [facility] Comment on above: Performed By: #### S ALIC #### [address] [address] Hematocrit (Bld) [Volume fraction] 39.0 % Normal 36.0 - 46.0 [facility] Comment on above: Performed By: #### S ALIC #### [address] [address] Hemoglobin (Bld) [Mass/Vol] 12.8 g/dL Normal 12.0 - 16.0 [facility] Comment on above: Performed By: #### S ALIC #### [address] [address] Lymphocytes (Bld) [#/Vol] 1.34 10*3/uL Normal 1.20 - 4.80 [facility] Comment on above: Performed By: #### S ALIC #### [address] [address] Lymphocytes/100 WBC (Bld) 18.9 % Normal 13.0 - 44.0 [facility] Comment on above: Performed By: #### S ALIC #### [address] [address] MCHC (RBC) [Mass/Vol] 32.8 g/dL Normal 32.0 - 36.0 [facility] Comment on above: Performed By: #### S ALIC #### [address] [address] MCV (RBC) [Entitic vol] 87 fL Normal 80 - 100 [facility] Comment on above: Performed By: #### S ALIC #### [address] [address] Monocytes (Bld) [#/Vol] 0.94 10*3/uL Normal 0.10 - 1.00 [facility] Comment on above: Performed By: #### S ALIC #### [address] [address] Monocytes/100 WBC (Bld) 13.3 % Normal 2.0 - 10.0 [facility] Comment on above: Performed By: #### S ALIC #### [address] [address] Neutrophils (Bld) [#/Vol] 4.64 10*3/uL Normal 1.20 - 7.70 [facility] Comment on above: Result Comment: Perc ent differential counts (%) should be interpreted in the context of the absolute cell counts (cells/L). Performed By: #### S ALIC #### [address] [address] Neutrophils/100 WBC (Bld) 65.5 % Normal 40.0 - 80.0 [facility] Comment on above: Performed By: #### S ALIC #### [address] [address] Platelets (Bld) [#/Vol] 172 10*3/uL Normal 150 - 450 [facility] Comment on above: Performed By: #### S ALIC #### [address] [address] RBC 4.46 x10E12/L Normal 4.00 - 5.20 [facility] Comment on above: Performed By: #### S ALIC #### [address] [address] WBC (Bld) [#/Vol] 7.1 10*3/uL Normal 4.4 - 11.3 [facility] Comment on above: Performed By: #### S ALIC #### [address] [address] CHEST 1 VIEWon 11-06-2022 CHEST 1 VIEW Patient Name: DEBI VERDUZCO STUDY: CHEST 1 VIEW; 11/06/2022 2:49 pm INDICATION: Chest Pain . COMPARISON: None. ACCESSION NUMBER(S): [id number] ORDERING CLINICIAN: STEPHANIE GARCIA TECHNIQUE: Single AP portable view of the chest was obtained. FINDINGS: MEDIASTINUM/ LUNGS/ CATHERINE: No cardiomegaly, vascular congestion, or pleural effusion. No abnormal opacity in either lung worrisome for tumor or pneumonia. No pneumothorax. No tracheal deviation. No abnormal hilar fullness or gross mass on either side. BONES: No lytic or blastic destructive bone lesion. UPPER ABDOMEN: Grossly intact. IMPRESSION: Negative exam. Electronically signed by: CALVIN PALMA MD Normal [facility] COMPREHENSIVE PANELon 2022 Anion gap [Moles/Vol] 8 mmol/L Low 10 - 20 [facility] Comment on above: Performed By: #### C MP ####[address] [address] HCO3 (Bld) [Moles/Vol] 30 mmol/L Normal 21 - 32 [facility] Comment on above: Performed By: #### C MP ####[address] [address] Potassium [Moles/Vol] 3.7 mmol/L Normal 3.5 - 5.3 [facility] Comment on above: Performed By: #### C MP ####[address] [address] Sodium [Moles/Vol] 138 mmol/L Normal 136 - 145 [facility] Comment on above: Performed By: #### C MP ####[address] [address] Albumin [Mass/Vol] 4.1 g/dL Normal 3.4 - 5.0 [facility] Comment on above: Performed By: #### C MP ####[address] [address] ALP [Catalytic activity/Vol] 79 U/L Normal 33 - 110 [facility] Comment on above: Performed By: #### C MP ####[address] [address] ALT [Catalytic activity/Vol] 19 U/L Normal 7 - 45 [facility] Comment on above: Result Comment: Lynsey ents treated with Sulfasalazine may generate falsely decreased results for ALT. Performed By: #### C MP ####[place] [id number] AST [Catalytic activity/Vol] 14 U/L Normal 9 - 39 [facility] Comment on above: Performed By: #### C MP ####[address] [address] Bilirubin [Mass/Vol] 0.4 mg/dL Normal 0.0 - 1.2 [facility] Comment on above: Performed By: #### C MP ####[address] [address] Calcium [Mass/Vol] 9.5 mg/dL Normal 8.6 - 10.3 [facility] Comment on above: Performed By: #### C MP ####[address] [address] Chloride [Moles/Vol] 104 mmol/L Normal 98 - 107 [facility] Comment on above: Performed By: #### C MP ####[address] [address] Creatinine [Mass/Vol] 0.63 mg/dL Normal 0.50 - 1.05 [facility] Comment on above: Performed By: #### C MP ####[address] [address] eGFR FEMALE >90 Normal >90 [facility] Comment on above: Result Comment: CALC ULATIONS OF ESTIMATED GFR ARE PERFORMED USING THE 2020 CKD-EPI STUDY REFIT EQUATION WITHOUT THE RACE VARIABLE FOR THE IDMS-TRACEABLE CREATININE METHODS. https://jasn.asnjournals.org/content/early/ASN.28437 [address] Performed By: #### C MP ####[address] [address] Glucose [Mass/Vol] 102 mg/dL High 74 - 99 [facility] Comment on above: Performed By: #### C MP ####[address] [address] Protein [Mass/Vol] 7.1 g/dL Normal 6.4 - 8.2 [facility] Comment on above: Performed By: #### C MP ####[address] [address] Urea nitrogen [Mass/Vol] 8 mg/dL Normal 6 - 23 [facility] Comment on above: Performed By: #### C MP ####[address] [address] HCG,BETA-QUANTITATIVEon HCG,BETA-QUANTITATIVE <2 Normal [facility] Comment on above: Result Comment: . Total HCG measurement is performed using the Karoline Zayda Access Immunoassay which detects intact HCG and free beta HCG subunit. . This test is not indicated for use as a tumor marker. HCG testing is performed using a different test methodology at [facility] than other [facility]. Direct result comparison should only be made within the same method. REF VALUES NON FEMALE <5 MALES <5 Performed By: #### S ALIC #### [address] [address] INFLUENZA A/B, COVID 2019 PC R,SYMPTOMATICon 11-06-2022 INFLUENZA A, PCR Not detected Normal Not Detected [facility] Comment on above: Result Comment: Resp iratory virus testing is performed routinely by PCR for Influenza A/B and RSV. Not Detected results do not preclude Influenza A/B or RSV infections since the adequacy of sample collection or low viral burden may impact the clinical sensitivity of this test method. Performed By: #### C O[facility] ####[place] [address] INFLUENZA B, PCR Not detected Normal Not Detected [facility] Comment on above: Result Comment: Resp iratory virus testing is performed routinely by PCR for Influenza A/B and RSV. Not Detected results do not preclude Influenza A/B or RSV infections since the adequacy of sample collection or low viral burden may impact the clinical sensitivity of this test method. Performed By: #### C OINP ####[place] [address] SARS-CoV-2 (COVID-19) RNA YOEL+probe Ql (Unsp spec) Not detected Normal Not Detected [facility] Comment on above: Result Comment: . This test has received FDA Emergency Use Authorization (EUA) and has been verified by [facility]. This test is only authorized for the duration of time that circumstances exist to justify the authorization of the emergency use of in vitro diagnostic tests for the detection of SARS-CoV-2 virus and/or diagnosis of COVID-19 infection under section 564(b)(1) of the Act, 21 U.S.C. 360bbb-3(b)(1), unless the authorization is terminated or revoked sooner. [facility] is certified under CLIA-88 as qualified to perform high complexity testing. Testing is performed in the [facility] laboratory located at [address] [place] [address]. SARS-CoV-2/Flu/RSV Multiplex Test: Fact sheet for providers: https://www.fda.gov/media/964110/download Fact sheet for patients: https://www.fda.gov/media/922389/download Performed By: #### C OINP ####[place] [address] Lab Specimen Source Nasal, Nasopharyngeal Normal [facility] Comment on above: Performed By: #### C OINP ####[place] [address] Provider Note - ED v3on 02-0 Provider Note - ED v3 Provider Note: Chart Review: ED NOTES ED NOTES: HPI: Patient is a 22-year-old G2, P1 presenting to the emergency department with myalgias, chills, and L breast pain. Patient reportedly had a spontaneous miscarriage last week. She states that she subsequently followed up with her [employer] Dr. Delgado. She states that she was diagnosed with left mastitis. She states this was 2 days ago and she has not yet taken the antibiotics as they were not ready from the pharmacy. Patient states, however, that she has been having chills and subjective fevers. She states her left breast is painful. She denies any nipple drainage. Patient states that she has not had any pelvic pain or vaginal discharge. Patient is concerned that she may have a uterine infection due to her miscarriage. Patient denies any cough, shortness of breath, hemoptysis, leg swelling, any other complaints at this time. Limitations to history: none identified Independent Historians: patient External Records Reviewed: none identified -------- ROS: a ten point review of systems was performed and was negative except as per HPI. -------- PMH / PSH: as per HPI, otherwise reviewed in EMR and significant for: denies MEDS: as per HPI, otherwise reviewed in EMR and significant for: denies ALLERGIES: as per HPI, otherwise reviewed in EMR and significant for: NKDA SocH: as per HPI, otherwise reviewed in EMR and significant for: denies EtOH or drug use FH: as per HPI, otherwise reviewed in EMR and significant for: non contributory -------- Physical Exam: VS: As documented in the triage note and EMR flowsheet from this visit was reviewed General: Well appearing. No acute distress. Eyes: Extraocular movements grossly intact. No scleral icterus. HEENT: Atraumatic. Normocephalic. Neck: No meningismus. No gross masses CV: Regular rhythm. No murmurs, rubs, gallops appreciated. Resp: Clear to auscultation bilaterally. No respiratory distress. GI: Soft, no masses. MSK: Symmetric muscle bulk. No gross step offs or deformities. Skin: Warm, dry, intact. erythema to the L breast at the 7 o clock position; no fluctuance Neuro: Speech fluent. Alert. Psych: Appropriate mood and affect for situation - HISTORY OF PRESENTING ILLNESS DEBI is a 22 year old Female and was seen by me at 06-Nov-2022 14:07 for a chief complaint of chest pain (Pt states chest pain, Chills, sweating, body aches and shaking for the past 4 days. Chest pain rated 10. Pain increases with deep breath. Does have mastitis in Left breast. 1 week ago had mis-carriage. EKG done in triage.)(1). Triage Information: Most recent Vital Sign Value Date Temp (F): 98.4 11-06-2022 13:51 Temp (C): 36.8 11-06-2022 13:51 Heart Rate (beats/min): 97 11-06-2022 13:51 Respirations (breaths/min): 18 11-06-2022 13:51 SpO2 (%): 97 11-06-2022 13:51 BP Systolic (mm Hg): 107 11-06-2022 13:51 BP Diastolic (mm Hg): 73 11-06-2022 13:51 PAST MEDICAL HISTORY ALLERGIES/INTOLERANCES: No Known Allergies HEALTH HISTORY: No documented data. OUTPATIENT MEDICATIONS: Home Medications Review Status for Reconciliation: Complete Med Status: Patient Currently Takes Medications Drug Name: Lexapro 20 mg oral tablet Instructions: 1 tab(s) orally once a day Drug Name: dicloxacillin 500 mg oral capsule Instructions: 1 cap(s) orally 4 times a day (starting 11/07/22) SIGNIFICANT EVENTS: Past Medical History Description:kidney stones CRITICAL CARE RESULTS: Recent Lab Results: I have reviewed these laboratory results: Influenza A/B,Covid 2019 PCR,Symptomatic 06-Nov-2022 14:50:00 ResultValue Fluid Source Nasal, Nasopharyngeal Influenza A PCR NOT DETECTED Reference Range: Not Detected Respiratory virus testing is performed routinely by PCR for Influenza A/B and RSV. Not Detected results do not preclude Influenza A/B or RSV infections since the adequacy of sample collection or lo Influenza B PCR NOT DETECTED Reference Range: Not Detected Respiratory virus testing is performed routinely by PCR for Influenza A/B and RSV. Not Detected results do not preclude Influenza A/B or RSV infections since the adequacy of sample collection or lo Coronavirus 2019,PCR NOT DETECTED Reference Range: Not Detected .This test has received FDA Emergency Use Authorization (EUA) and has been verified by [facility]. This test is only authorized for the duration of time that circum Complete Blood Count + Differential 06-Nov-2022 14:44:00 Result (more content not included)... Normal [facility] Provider Note - ED v3 This report has be en cancelled. Normal [facility] Risk Screen - Adult Emergenc yon 11-06-2022 Risk Screen - Adult Emergency Preferred Language: Preferred Language: Preferred Language for Discussing Health Care (patient/designee)Ameya zuniga Patient Preferred Pharmacy: Patient Preferred Pharmacy Statement: I have reviewed and updated the patient's preferred pharmacy selection for today's visit. Advanced Directives: Advance Directive/DNRno Family Violence Adult: Abuse Screen: Are you or have you been threatened or abused physically, emotionally, or sexually by anyoneno Learning Assessment (Patient): Learning Assessment (Patient): Patient is Able to be Assessed for Learningyes Factors Influencing Readiness to Learnpain Factors that Impact Ability to Learnnone Devices/Methods Used to Communicatenone Learning Preferenceswritten material; verbal instruction Cultural Considerationsnone Developmental Considerationsnone Moravian Considerationsnone Learning Assessment (Other Learner): Learning Assessment (Other Learner): Other learner availableno Pressure Injury/TB/Substance: Pressure Injury: Do you have a coughno Smoking Statusnever smoker Alcohol Usedenies Drug Usedenies Admission Risk Screen: Significant IndicatorsComplete CAGE: CAGE: Is this an injured patient at a Tra[place] Center [place]/[place] /[place]): no Electronic Signatures: Bridget Gamboa (DONNELL) (Signed 06-Nov-2022 14:32) Authored: Preferred Language, Patient Preferred Pharmacy, Advanced Directives, Family Violence Adult, Learning Assessment (Patient), Learning Assessment (Other Learner), Pressure Injury/TB/Substance, Pressure Injury, CAGE Last Updated: 06-Nov-2022 14:32 by Bridget Gamboa (DONNELL) Normal [facility] TROPONIN I, HIGH SENSITIVITY on 11-06-2022 TROPONIN I, HIGH SENSITIVITY <3 Normal 0 - 13 [facility] Comment on above: Result Comment: . Less than 99th percentile of normal range cutoff- Female and children under 18 years old <14 ng/L; Male <21 ng/L: Negative Repeat testing should be performed if clinically indicated. . Female and children under 18 years old 14-50 ng/L; Male 21-50 ng/L: Consistent with possible cardiac damage and possible increased clinical risk. Serial measurements may help to assess extent of myocardial damage. . >50 ng/L: Consistent with cardiac damage, increased clinical risk and myocardial infarction. Serial measurements may help assess extent of myocardial damage. . NOTE: Children less than 1 year old may have higher baseline troponin levels and results should be interpreted in conjunction with the overall clinical context. . NOTE: Troponin I testing is performed using a different testing methodology at [facility] than at other system hospitals. Direct result comparisons should only be made within the same method. Performed By: #### T [facility] #### [id number] [place] [address] Triage - EDon 11-06-2022 Triage - ED Quick Triage: Are You no Have You Given In The Last 6 Weeksno Are You Currently Breastfeedingno Chart Review: ARRIVAL INFORMATION Mode of Arrival: private vehicle CHIEF COMPLAINT DEBI VERDUZCO is a Female patient with a chief complaint of chest pain (Pt states chest pain, Chills, sweating, body aches and shaking for the past 4 days. Chest pain rated 10. Pain increases with deep breath. Does have mastitis in Left breast. 1 week ago had mis-carriage. EKG done in triage.). Onset of the Complaint: 03-Nov-2022 Triage Date/Time: 06-Nov-2022 13:51 EDA: 3 Pain Rating (0-10): 10 = Severe Vital Signs: Temperature: 98.4F ( 36.8C) taken temporal Blood Pressure: 107/73 Mean: Heart Rate: 97 Respiratory Rate: 18 Pulse Oximetry: 97% on room air, no respiratory support. Height: 5 feet 5.00 inches. 165.1 CM Weight: 134.9 pounds. Calculated 61.2 kg. (stated) Calculated BMI (kg/m2): 22.452 Calculated BSA (m2) 1.68 [place] Coma Scale: Best Eye Response: (E4) spontaneous Best Motor Response: (M6) obeys commands Best Verbal Response: (V5) oriented [place] Score: 15 Allergies: no Patient has homicidal thoughts: no Symptoms Are POSITIVE For: chills Symptoms Are Negative For: anxiety, diaphoresis, dyspnea, headache, loss of consciousness, nausea, numbness, pain, tingling and weakness Risk Screens Suicide Risk Screen In the Past Month: Have you wished you were or wished you could go to sleep and not wake up no In the Past Month: Have you had any actual thoughts of killing yourself no In Your Lifetime: Have you ever done anything, started to do anything, or prepared to do anything to end your life no Mccoy Fall Scale Screening Has the patient fallen before (or is the patient in the ED as a result of a fall) has not had a fall Does the patient have an impaired gait does not have impaired gait Is the patient cognitively impaired not cognitively impaired Interventions: Mccoy Fall Interventions: LOW INTERVENTIONS: *patient oriented to surroundings and call system, * patient/family falls education completed and documented, *patients fall status communicated during bedside handoff, *whiteboard updated, *mode of toileting discussed with patient, *bed in low position with brakes locked, *call light in reach, * non-skid footwear TRAVEL HISTORY Travel History Coronavirus Screening: no exposure or symptoms Travel Exposure History: NO travel to International locations in the past 30 days PAIN Pain Scale Used: ROMULO Pain Rating (0-10): 10 = Severe Past Medical History: Past Medical History Reviewedyes Electronic Signatures: Bridget Gamboa (RN) (Signed 06-Nov-2022 14:30) Authored: Quick Triage, Chart Review Braulio Le (EMT-P) (Signed 06-Nov-2022 14:01) Entered: Risk Screens, Pain, Travel History, Chart Review, Scores, Past Medical History Authored: Quick Triage, Risk Screens, Pain, Travel History, Chart Review, Scores, Past Medical History Last Updated: 06-Nov-2022 14:30 by Bridget Gamboa (RN) [facility] URINALYSIS WITH CULTURE IF I NDICATEDon 11-06-2022 Appearance (U) Canceled [facility] Comment on above: Order Comment: TEST URINALYSIS WITH CULTURE IF INDICATED WAS CANCELLED, 11/06/2022 18:28PATIENT DISCHARGED. Performed By: #### U [facility] ####[id number] ASCORBIC ACID Canceled [facility] Comment on above: Order Comment: TEST URINALYSIS WITH CULTURE IF INDICATED WAS CANCELLED, 11/06/2022 18:28PATIENT DISCHARGED. Result Comment: Conc entrations > = 20 mg/dL of ascorbic acid can be expected to cause strong interference in the reactions testing for glucose, nitrite and blood. It is recommended to discontinue Vitamin C administration and retest in 10 hours. Performed By: #### U [facility] ####[address] [address] Bilirubin Ql (U) Canceled [facility] Comment on above: Order Comment: TEST URINALYSIS WITH CULTURE IF INDICATED WAS CANCELLED, 11/06/2022 18:28PATIENT DISCHARGED. Performed By: #### [facility] ####[address] [address] Color (U) Canceled [facility] Comment on above: Order Comment: TEST URINALYSIS WITH CULTURE IF INDICATED WAS CANCELLED, 11/06/2022 18:28PATIENT DISCHARGED. Performed By: #### [facility] ####[id number] Glucose Ql (U) Canceled [facility] Comment on above: Order Comment: TEST URINALYSIS WITH CULTURE IF INDICATED WAS CANCELLED, 11/06/2022 18:28PATIENT DISCHARGED. Performed By: #### [facility] ####[address] [address] Hemoglobin Ql (U) Canceled [facility] Comment on above: Order Comment: TEST URINALYSIS WITH CULTURE IF INDICATED WAS CANCELLED, 11/06/2022 18:28PATIENT DISCHARGED. Performed By: #### [facility] ####[address] [address] Ketones Ql (U) Canceled [facility] Comment on above: Order Comment: TEST URINALYSIS WITH CULTURE IF INDICATED WAS CANCELLED, 11/06/2022 18:28PATIENT DISCHARGED. Performed By: #### [facility] ####[id number] Leukocyte esterase Test strip Ql (U) Canceled [facility] Comment on above: Order Comment: TEST URINALYSIS WITH CULTURE IF INDICATED WAS CANCELLED, 11/06/2022 18:28PATIENT DISCHARGED. Performed By: #### [facility] ####[address] [place] [id number] Nitrite Ql (U) Canceled [facility] Comment on above: Order Comment: TEST URINALYSIS WITH CULTURE IF INDICATED WAS CANCELLED, 11/06/2022 18:28PATIENT DISCHARGED. Performed By: #### U [facility] ####[id number] pH Canceled [facility] Comment on above: Order Comment: TEST URINALYSIS WITH CULTURE IF INDICATED WAS CANCELLED, 11/06/2022 18:28PATIENT DISCHARGED. Performed By: #### U [facility] ####[address] [address] Protein Ql (U) Canceled [facility] Comment on above: Order Comment: TEST URINALYSIS WITH CULTURE IF INDICATED WAS CANCELLED, 11/06/2022 18:28PATIENT DISCHARGED. Performed By: #### U [facility] ####[address] [address] Specific gravity (U) [Rel density] Canceled Normal [facility] Comment on above: Order Comment: TEST URINALYSIS WITH CULTURE IF INDICATED WAS CANCELLED, 11/06/2022 18:28PATIENT DISCHARGED. Performed By: #### U [facility] ####[id number] UROBILINOGEN Canceled [facility] Comment on above: Order Comment: TEST URINALYSIS WITH CULTURE IF INDICATED WAS CANCELLED, 11/06/2022 18:28PATIENT DISCHARGED. Performed By: #### U [facility] ####[id number] US TRANSVAGINALon 11-06-2022 US TRANSVAGINAL Patient Name: DEBI VERDUZCO STUDY: US TRANSVAGINAL; 11/06/2022 3:27 pm INDICATION: chills, fevers, pain, s/p miscarriage rule out retained products . COMPARISON: 10/21/2022. ACCESSION NUMBER(S): [id number] ORDERING CLINICIAN: STEPHANIE GARCIA TECHNIQUE: Multiple multiplanar static coffman scale, color and spectral waveform sonographic images of the pelvis were obtained. Transabdominal and transvaginal ultrasound was performed. FINDINGS: UTERUS: The uterus measures 8.1 x 3.6 x 4.1 cm. No uterine masses. ENDOMETRIUM: The endometrium measures 0.6 cm. No focal abnormality. RIGHT OVARY: Suboptimally visualized. 3.5 x 2.9 x 2.5 cm. No solid mass. Arterial and venous flow present. LEFT OVARY: Suboptimally visualized. 3.5 x 2 x 2.4 cm. No solid mass. Venous flow present. Arterial flow difficult to assess. OTHER: Normal endometrial thickness without heterogeneity to suggest retained products sonographically. IMPRESSION: No worrisome abnormality. Electronically signed by: BABS ELLER MD [facility] FINISHER CARD TENDER - Office Visiton FINISHER CARD TENDER - Office Visit Diagnoses/Problems Assessed Mastitis of left breast unrelated to or (611.0) (N61.0) Orders Start: Dicloxacillin Sodium 500 MG Oral Capsule; TAKE 1 CAPSULE 4 TIMES DAILY Provider Impressions 1. Left mastitis Prescription for dicloxacillin for 10 days. Follow-up in the office as previously scheduled. Chief Complaint Patient c/o left breast pain, redness and started it's warm to touch. Patient denies any nipple discharge. History of Present IllnessPresents she had onset of left breast pain and redness with warmth to the touch since yesterday. Denies any nipple discharge or any breast lumps. Review of Systems Review of Systems: Constitutional: No fever or chills Respiratory: No shortness of breath, or cough Cardiovascular: No chest pain or syncope Breasts: No masses, no nipple discharge Gastrointestinal: No nausea, vomiting, or diarrhea, no abdominal pain Genitourinary: No dysuria or frequency Gynecology: Negative except as noted in history of present illness All other: All other systems reviewed and negative for complaint Active Problems Problems Abnormal uterine bleeding (AUB) (626.9) (N93.9) Amenorrhea (626.0) (N91.2) Anxiety (300.00) (F41.9) 03/07/22: GAD7: 19/ severe anxiety control counseling (V25.09) (Z30.09) BMI 22.0-22.9, adult (V85.1) (Z68.22) Chlamydia (079.98) (A74.9) 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.23) (F32.2) 03/07/22 PHQ9 Severe depression Encounter for initial prescription of implantable subdermal contraceptive (V25.02) (Z30.017) Encounter for Nexplanon removal (V25.43) (Z30.46) Pelvic pain (R10.2) Screening for STDs (sexually transmitted diseases) (V74.5) (Z11.3) Past Medical History Problems History of Chlamydia (079.98) (A74.9) History of Encounter to establish care (V65.8) (Z76.89) Resolved Date: 17 Oct 2022 History of hematuria (V13.09) (Z87.448) Resolved Date: 22 Oct 2019 History of (V13.29) 11/23/2019-39 WEEKS, FEMALE, #6 12OZ, VAGINAL History of Menarche (V21.8) AGE 11 History of Negative test (V72.41) (Z32.02) Resolved Date: 17 Oct 2022 History of Positive depression screening (796.4) (Z13.31) Resolved Date: 17 Oct 2022 History of exam (V24.2) (Z39.2) Resolved Date: 17 Oct 2022 Surgical History Problems History of Tonsillectomy Family History Mother Family history of depression (V17.0) (Z81.8) Sibling Family history of Healthy adult Maternal Grandmother Family history of malignant neoplasm of colon (V16.0) (Z80.0) Maternal Grandfather Family history of malignant neoplasm of colon (V16.0) (Z80.0) Social History Problems Consumes caffeine from carbonated beverages (V49.89) (Z78.9) Current every day use of combustion-free vaporization device (V69.8) (Z72.89) Does not use illicit drugs (V49.89) (Z78.9) Electronic cigarette use (305.1) (Z78.9) No advance directives (V49.89) (Z78.9) Occasional alcohol use Sexually active Allergies Medication No Known Drug Allergies Recorded By: Rachel Humphries; 09/21/2019 2:14:11 PM Current Meds Medication NameInstruction Escitalopram Oxalate 20 MG Oral TabletTAKE ONE TABLET BY MOUTH ONE TIME DAILY Vitamin Plus Low Iron 27-1 MG TABSTAKE 1 TABLET DAILY. Vitals Vital Signs Recorded: [id number] 03:34PM Lhyjdadc056 Fugbuzogm64 Height5 ft 5 in Emwcwz72.2 kg BMI Lelrrxizci94.82 kg/m2 BSA Calculated1.68 Physical Exam PHYSICAL EXAMINATION: Well-developed, well nourished, in no acute distress, alert and oriented x three, is pleasant and cooperative. HEENT: Clear. Pupils equal, round and reactive to light and accommodation. Extraocular muscles are intact. Oral mucosa pink without exudate. NECK: No lymphadenopathy, no thyromegaly. BREASTS: Symmetric, no palpable masses. No nipple discharge or retraction. Noted redness of the right breast from the 8 to 5 o'clock position which is consistent with mastitis. LUNGS: Clear bilaterally. HEART: Regular rate and rhythm without murmurs. ABDOMEN: Normoactive bowel sounds, soft and nontender, no guarding or rebound tenderness, no CVA tenderness. EXTREMITIES: No clubbing, cyanosis or edema. NEUROLOGIC: Cranial nerves II-XII grossly intact. Signatures Electronically signed by : Jose Delgado MD; Nov 05 2022 3:55PM EST (Author) Normal Touchworks HCG, Beta Quantitativeon HCG.beta subunit Qn 256 m[IU]/mL Abnormal [facility] [address] Work Phone: Comment on above: .Total HCG measureme nt is performed using the [employer] AccessImmunoassay which detects intact HCG and free beta HCG subunit. .This test is not indicated for use as a tumor marker.HCG testing is performed using a different test methodology at [facility]3] than other [facility]. Direct result comparisonshould only be made within the same method. REF VALUESNON FEMALE <5MALES <5.Low-level positive HCG results can be seen in early , in miri- or post-menopausal females due to normal pituitary HCGproduction, or with analytic interference. Repeat testing in 48-72hours can aid in assessing for as results should doublein this time period. FSH measurement is recommended in miri- orpost-menopausal females as concurrent elevation of FSH can supportpituitary production as the source of the HCG elevation. HCG,BETA-QUANTITATIVEon 10-01 HCG,BETA-QUANTITATIVE 256 mIU/mL Abnormal [facility] Comment on above: Result Comment: . Total HCG measurement is performed using the Karoline [employer]ell[employer] Access Immunoassay which detects intact HCG and free beta HCG subunit. . This test is not indicated for use as a tumor marker. HCG testing is performed using a different test methodology at [facility] than other [facility]. Direct result comparison should only be made within the same method. REF VALUES NON FEMALE <5 MALES <5 . Low-level positive HCG results can be seen in early , in miri- or post-menopausal females due to normal pituitary HCG production, or with analytic interference. Repeat testing in 48-72 hours can aid in assessing for as results should double in this time period. FSH measurement is recommended in miri- or post-menopausal females as concurrent elevation of FSH can support pituitary production as the source of the HCG elevation. Performed By: #### H [facility] #### [id number] [place] [address] LMPon 10-23-2022 Last menstrual period start date 25Aug2022 [address] Work Phone: FINISHER CARD TENDER - Office Visiton 10-01 FINISHER CARD TENDER - Office Visit Diagnoses/Problems Assessed Amenorrhea (626.0) (N91.2) Provider Impressions 1. Amenorrhea Pelvic ultrasound performed on October 21 through the emergency room shows a 20 mm gestational sac without evidence of a yolk sac or pole. Both ovaries appear normal. No evidence of any adnexal masses. Recommend follow-up hCG today. Patient to return in 1 week for repeat ultrasound. Patient was given precautions to go to the emergency room if she has heavier bleeding or abdominal pain. Chief Complaint Patient is here for ER follow up due to vaginal bleeding. Patient had a positive home test. Patient went to ER on 10/21/2022 and is still having bleeding and cramps/ stabbing pain around her navel, patient also c/o breast tenderness. LMP: 08/25/2022, and had a day in Dec of spotting and a day of bleeding (12- 16 AND 17). History of Present IllnessPatient presents for follow-up after being seen in the emergency room recently due to vaginal bleeding. Patient states that she still has some bleeding and some cramps. She has some breast tenderness. Review of Systems Review of Systems: Constitutional: No fever or chills Respiratory: No shortness of breath, or cough Cardiovascular: No chest pain or syncope Breasts: No breast pain, no masses, no nipple discharge Gastrointestinal: No nausea, vomiting, or diarrhea, no abdominal pain Genitourinary: No dysuria or frequency Gynecology: Negative except as noted in history of present illness All other: All other systems reviewed and negative for complaint Active Problems Problems Abnormal uterine bleeding (AUB) (626.9) (N93.9) Amenorrhea (626.0) (N91.2) Anxiety (300.00) (F41.9) 03/07/22: GAD7: severe anxiety control counseling (V25.09) (Z30.09) BMI 22.0-22.9, adult (V85.1) (Z68.22) Chlamydia (079.98) (A74.9) 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.23) (F32.2) 03/07/22 PHQ9 Severe depression Encounter for initial prescription of implantable subdermal contraceptive (V25.02) (Z30.017) Encounter for Nexplanon removal (V25.43) (Z30.46) Pelvic pain (R10.2) Screening for STDs (sexually transmitted diseases) (V74.5) (Z11.3) Past Medical History Problems History of Chlamydia (079.98) (A74.9) History of Encounter to establish care (V65.8) (Z76.89) Resolved Date: 17 Oct 2022 History of hematuria (V13.09) (Z87.448) Resolved Date: 22 Oct 2019 History of (V13.29) 11/23/2019-39 WEEKS, FEMALE, #6 12OZ, VAGINAL History of Menarche (V21.8) AGE 11 History of Negative test (V72.41) (Z32.02) Resolved Date: 17 Oct 2022 History of Positive depression screening (796.4) (Z13.31) Resolved Date: 17 Oct 2022 History of exam (V24.2) (Z39.2) Resolved Date: 17 Oct 2022 Surgical History Problems History of Tonsillectomy Family History Mother Family history of depression (V17.0) (Z81.8) Sibling Family history of Healthy adult Maternal Grandmother Family history of malignant neoplasm of colon (V16.0) (Z80.0) Maternal Grandfather Family history of malignant neoplasm of colon (V16.0) (Z80.0) Social History Problems Consumes caffeine from carbonated beverages (V49.89) (Z78.9) Current every day use of combustion-free vaporization device (V69.8) (Z72.89) Does not use illicit drugs (V49.89) (Z78.9) Electronic cigarette use (305.1) (Z78.9) No advance directives (V49.89) (Z78.9) Occasional alcohol use Sexually active Allergies Medication No Known Drug Allergies Recorded By: Rachel Humphries; 09/21/2019 2:14:11 PM Current Meds Medication NameInstruction Escitalopram Oxalate 20 MG Oral TabletTAKE ONE TABLET BY MOUTH ONE TIME DAILY Vitamin Plus Low Iron 27-1 MG TABSTAKE 1 TABLET DAILY. Vitals Vital Signs Recorded: 23Oct2022 01:40PM Gfaojubg207 Enolgwlsa15 Height5 ft 5 in Tmjvnh96.6 kg BMI Gudeejnauw28.6 kg/m2 BSA Calculated1.68 [id number] Physical Exam General: No acute distress Eye: Intraocular movements are intact HEENT: Normocephalic Respiratory: Respirations are nonlabored Gastrointestinal: Nondistended Musculoskeletal: Normal range of motion Neurologic: Alert and oriented x3 Psychiatric: Cooperative, appropriate mood and affect. Results/Data Complete Blood Count + [id number] 07:20PMNon Ambulatory, Provider Ordering Provider: EMILY CLAROS [id number] Test NameResultFlagReference White Blood Cell Count6.1 x10E9/L4.4 - 11.3 Red Blood Cell Count4.14 x10E12/LSee Below Reference Range: 4.00 - 5.20 Vvaoynnduj62.8 g/dLLSee Below Reference Range: 12.0 - 16.0 HCT36.3 %See Below Reference Range: 36.0 - 46.0 MCV88 fL80 - 100 MCHC32.5 g/dLSee Below Reference Range: 32.0 - 36.0 Platelet Bigba332 x10E9/L150 - 450 RDW-CV13.1 %See Below Reference Range: 11.5 - 14.5 Neutrophil %61.3 %See Below Reference Range: 40.0 - 80.0 % Automated Immature Gran0. (more content not included)... Normal [employer] BASIC METABOLIC PANELon 01-2 Anion gap [Moles/Vol] 9 mmol/L Low 10 - 20 [facility] Comment on above: Performed By: #### S ALIC #### [address] [address] Chloride [Moles/Vol] 107 mmol/L Normal 98 - 107 [facility] Comment on above: Performed By: #### S ALIC #### [address] [address] HCO3 (Bld) [Moles/Vol] 28 mmol/L Normal 21 - 32 [facility] Comment on above: Performed By: #### S ALIC #### [address] [address] Potassium [Moles/Vol] 3.5 mmol/L Normal 3.5 - 5.3 [facility] Comment on above: Performed By: #### S ALIC #### [address] [address] Sodium [Moles/Vol] 140 mmol/L Normal 136 - 145 [facility] Comment on above: Performed By: #### S ALIC #### [address] [address] Calcium [Mass/Vol] 8.6 mg/dL Normal 8.6 - 10.3 [facility] Comment on above: Performed By: #### S ALIC #### [address] [address] Creatinine [Mass/Vol] 0.57 mg/dL Normal 0.50 - 1.05 [facility] Comment on above: Performed By: #### S ALIC #### [address] [address] eGFR FEMALE >90 Normal >90 [facility] Comment on above: Result Comment: CALC ULATIONS OF ESTIMATED GFR ARE PERFORMED USING THE 2020 CKD-EPI STUDY REFIT EQUATION WITHOUT THE RACE VARIABLE FOR THE IDMS-TRACEABLE CREATININE METHODS. https://jasn.asnjournals.org/content//ASN.76924 23935 Performed By: #### S ALIC #### [place] [id number] Glucose [Mass/Vol] 93 mg/dL Normal 74 - 99 [facility] Comment on above: Performed By: #### S ALIC #### [place] [id number] Urea nitrogen [Mass/Vol] 8 mg/dL Normal 6 - 23 [facility] Comment on above: Performed By: #### S ALIC #### [place] [address] CBC AND DIFFERENTIALon 10-21 % AUTOMATED IMMATURE GRAN 0.3 % Normal 0.0 - 0.9 [facility] Comment on above: Result Comment: Arielle ture Granulocyte Count (IG) includes promyelocytes, myelocytes and metamyelocytes but does not include bands. Percent differential counts (%) should be interpreted in the context of the absolute cell counts (cells/L). Performed By: #### S ALIC #### [place] [address] Basophils (Bld) [#/Vol] 0.03 10*3/uL Normal 0.00 - 0.10 [facility] Comment on above: Performed By: #### S ALIC #### [place] [id number] Basophils/100 WBC (Bld) 0.5 % Normal 0.0 - 2.0 [facility] Comment on above: Performed By: #### S ALIC #### [place] [id number] Eosinophils (Bld) [#/Vol] 0.12 10*3/uL Normal 0.00 - 0.70 [facility] Comment on above: Performed By: #### S ALIC #### [place] [id number] Eosinophils/100 WBC (Bld) 2.0 % Normal 0.0 - 6.0 [facility] Comment on above: Performed By: #### S ALIC #### [place] [id number] Erythrocyte distribution width (RBC) [Ratio] 13.1 % Normal 11.5 - 14.5 [facility] Comment on above: Performed By: #### S ALIC #### [address] [address] Hematocrit (Bld) [Volume fraction] 36.3 % Normal 36.0 - 46.0 [facility] Comment on above: Performed By: #### S ALIC #### [address] [address] Hemoglobin (Bld) [Mass/Vol] 11.8 g/dL Low 12.0 - 16.0 [facility] Comment on above: Performed By: #### S ALIC #### [address] [address] Lymphocytes (Bld) [#/Vol] 1.55 10*3/uL Normal 1.20 - 4.80 [facility] Comment on above: Performed By: #### S ALIC #### [address] [address] Lymphocytes/100 WBC (Bld) 25.4 % Normal 13.0 - 44.0 [facility] Comment on above: Performed By: #### S ALIC #### [address] [address] MCHC (RBC) [Mass/Vol] 32.5 g/dL Normal 32.0 - 36.0 [facility] Comment on above: Performed By: #### S ALIC #### [address] [address] MCV (RBC) [Entitic vol] 88 fL Normal 80 - 100 [facility] Comment on above: Performed By: #### S ALIC #### [address] [address] Monocytes (Bld) [#/Vol] 0.64 10*3/uL Normal 0.10 - 1.00 [facility] Comment on above: Performed By: #### S ALIC #### [address] [address] Monocytes/100 WBC (Bld) 10.5 % Normal 2.0 - 10.0 [facility] Comment on above: Performed By: #### S ALIC #### [address] [address] Neutrophils (Bld) [#/Vol] 3.75 10*3/uL Normal 1.20 - 7.70 [facility] Comment on above: Result Comment: Perc ent differential counts (%) should be interpreted in the context of the absolute cell counts (cells/L). Performed By: #### S ALIC #### [address] [address] Neutrophils/100 WBC (Bld) 61.3 % Normal 40.0 - 80.0 [facility] Comment on above: Performed By: #### S ALIC #### [address] [address] Platelets (Bld) [#/Vol] 188 10*3/uL Normal 150 - 450 [facility] Comment on above: Performed By: #### S ALIC #### [address] [address] RBC 4.14 x10E12/L Normal 4.00 - 5.20 [facility] Comment on above: Performed By: #### S ALIC #### [address] [address] WBC (Bld) [#/Vol] 6.1 10*3/uL Normal 4.4 - 11.3 [facility] Comment on above: Performed By: #### S ALIC #### [address] [address] Complete Blood Count + Diffe rentialon 10-21-2022 Basophils/100 WBC (Bld) 0.5 % 0.0 - 2.0 [facility] [address] Work Phone: [phone] Erythrocyte distribution width (RBC) [Ratio] 13.1 % See Below [facility] [address] Work Phone: [phone] Comment on above: Reference Range: 11. 5 - 14.5 Hematocrit (Bld) [Volume fraction] 36.3 % See Below [facility] [address] Work Phone: [phone] Comment on above: Reference Range: 36. 0 - 46.0 Hemoglobin (Bld) [Mass/Vol] 11.8 g/dL below low threshold See Below [facility] [address] Work Phone: [phone] Comment on above: Reference Range: 12. 0 - 16.0 Lymphocytes/100 WBC (Bld) 25.4 % See Below [facility] [address] Work Phone: [phone] Comment on above: Reference Range: 13. 0 - 44.0 MCHC (RBC) [Mass/Vol] 32.5 g/dL See Below [facility] [address] Work Phone: [phone] Comment on above: Reference Range: 32. 0 - 36.0 MCV (RBC) [Entitic vol] 88 fL 80 - 100 [facility] [address] Work Phone: [phone] Monocytes/100 WBC (Bld) 10.5 % 2.0 - 10.0 [facility] [address] Work Phone: [phone] Neutrophils/100 WBC (Bld) 61.3 % See Below [facility] [address] Work Phone: [phone] Comment on above: Reference Range: 40. 0 - 80.0 Platelets (Bld) [#/Vol] 188 10*3/uL 150 - 450 [facility] [address] Work Phone: [phone] RBC (Bld) [#/Vol] 4.14 {x10E12/L} See Below [facility] [address] Work Phone: [phone] Comment on above: Reference Range: 4.0 0 - 5.20 WBC (Bld) [#/Vol] 6.1 10*3/uL 4.4 - 11.3 [facility] [address] Work Phone: [phone] Complete Blood Count + Differential 0.03 {x10E9/L} See Below [facility] [address] Work Phone: [phone] Comment on above: Reference Range: 0.0 0 - 0.10 Complete Blood Count + Differential 0.12 {x10E9/L} See Below [facility] [employer] Work Phone: Comment on above: Reference Range: 0.0 0 - 0.70 Complete Blood Count + Differential 0.64 {x10E9/L} See Below [facility] [place] [address] [address] Work Phone: Comment on above: Reference Range: 0.1 0 - 1.00 Complete Blood Count + Differential 1.55 {x10E9/L} See Below [facility] [employer] Work Phone: Comment on above: Reference Range: 1.2 0 - 4.80 Complete Blood Count + Differential 3.75 {x10E9/L} See Below [facility] [place] [address] [employer] Work Phone: Comment on above: Reference Range: 1.2 0 - 7.70 Percent differential counts (%) should be interpreted in the context of the absolute cell counts (cells/L). Complete Blood Count + Differential 2.0 % 0.0 - 6.0 [facility] [place] [address] [employer] Work Phone: Complete Blood Count + Differential 0.3 % 0.0 - 0.9 [facility] [place] [address] [employer] Work Phone: Comment on above: Immature Granulocyte Count (IG) includes promyelocytes, myelocytes and metamyelocytes but does not include bands. Percent differential counts (%) should be interpreted in the context of the absolute cell counts (cells/L). HCG, Beta Quantitativeon HCG.beta subunit Qn 761 m[IU]/mL Abnormal [facility] [place] [address] [employer] Work Phone: Comment on above: .Total HCG measureme nt is performed using the Karoline Zayda AccessImmunoassay which detects intact HCG and free beta HCG subunit. .This test is not indicated for use as a tumor marker.HCG testing is performed using a different test methodology at [facility]3] than other [facility]. Direct result comparisonshould only be made within the same method. REF VALUESNON FEMALE <5MALES <5.Low-level positive HCG results can be seen in early , in miri- or post-menopausal females due to normal pituitary HCGproduction, or with analytic interference. Repeat testing in 48-72hours can aid in assessing for as results should doublein this time period. FSH measurement is recommended in miri- orpost-menopausal females as concurrent elevation of FSH can supportpituitary production as the source of the HCG elevation. HCG,BETA-QUANTITATIVEon 10-01 HCG,BETA-QUANTITATIVE 761 mIU/mL Abnormal [facility] Comment on above: Result Comment: . Total HCG measurement is performed using the Karoline [place] Access Immunoassay which detects intact HCG and free beta HCG subunit. . This test is not indicated for use as a tumor marker. HCG testing is performed using a different test methodology at [facility] than other [facility]. Direct result comparison should only be made within the same method. REF VALUES NON FEMALE <5 MALES <5 . Low-level positive HCG results can be seen in early , in miri- or post-menopausal females due to normal pituitary HCG production, or with analytic interference. Repeat testing in 48-72 hours can aid in assessing for as results should double in this time period. FSH measurement is recommended in miri- or post-menopausal females as concurrent elevation of FSH can support pituitary production as the source of the HCG elevation. Performed By: #### S [facility] #### [place] [address] Laboratory - Blood bankon ABO group Nom (Bld) [facility] [place] [address] Work Phone: [phone] Blood group antibody screen Ql Negative [facility] [address] Work Phone: [phone] Rh immune globulin screen (Bld) [Interp] Positive [facility] [address] Work Phone: [phone] Laboratory - Chemistry and C hemistry - challengeon 10-21-2022 Anion gap [Moles/Vol] 9 mmol/L below low threshold 10 - 20 [facility] [address] Work Phone: [phone] Calcium [Mass/Vol] 8.6 mg/dL 8.6 - 10.3 [facility] [address] Work Phone: [phone] Chloride [Moles/Vol] 107 mmol/L 98 - 107 [facility] [address] Work Phone: [phone] CO2 [Moles/Vol] 28 mmol/L 21 - 32 [facility] [address] Work Phone: [phone] Creatinine [Mass/Vol] 0.57 mg/dL See Below [facility] [address] Work Phone: [phone] Comment on above: Reference Range: 0.5 0 - 1.05 Glucose [Mass/Vol] 93 mg/dL 74 - 99 [facility] [address] Work Phone: [phone] Potassium [Moles/Vol] 3.5 mmol/L 3.5 - 5.3 [facility] [address] Work Phone: [phone] Sodium [Moles/Vol] 140 mmol/L 136 - 145 [facility] [address] Work Phone: [phone] Urea nitrogen [Mass/Vol] 8 mg/dL 6 - 23 [facility] [address] Work Phone: [phone] No Panel Informationon 10-21 Please click on the link to view the study images Normal [facility] [address] Work Phone: [phone] Normal [facility] [address] Work Phone: [phone] >90 >90 [facility] [address] Work Phone: [phone] Comment on above: CALCULATIONS OF NILSON MATED GFR ARE PERFORMED USING THE 2020 CKD-EPI STUDY REFIT EQUATION WITHOUT THE RACE VARIABLE FOR THE IDMS-TRACEABLE CREATININE METHODS.https://jasn.asnjournals.org/content/early/A SN.3908864641 Provider Note - ED v3on 10-01 Provider Note - ED v3 Provider Note: Chart Review: ED NOTES ED NOTES: ====HPI==== Patient is a 22-year-old female who presents to the emergency department with a chief complaint of vaginal bleeding. Patient states that she is approximately 8 weeks . She states that she has had abdominal cramping and vaginal bleeding. She reportedly had an ultrasound performed at the center 1 week ago and there was no evidence of an IUP at that time. PMHX: Kidney stones Social HX: Vapes TOBACCO Denies ETOH Denies DRUGS ====Review of Systems==== 10 point system review is negative except for those specifically mentioned in history of present illness ====Physical Exam==== Constitutional/General: Alert and oriented x3, well appearing, nontoxic, and in NAD. Head: Normocephalic and atraumatic. Eyes: PERRL, EOMI, conjunctive normal, sclera nonicteric, subconjunctival layer is pink. Mouth: Oropharynx clear, handling secretions, no trismus, no asymmetry of the posterior oropharynx or uvular edema Neck: Supple, full ROM, non tender to palpation in the midline, no stridor, no crepitus, no meningeal signs. Trachea at midline. Respiratory: Lungs clear to auscultation bilaterally, no wheezes, rales, or rhonchi, not in respiratory distress. Cardiovascular: Regular rate, regular rhythm, no murmurs, gallops, or rubs, 2+ distal pulses. Chest: normal chest wall movement GI: Abdomen soft, nontender, nondistended, no organomegaly, no palpable masses, no rebound, guarding, or rigidity. : Cervical os is closed. Normal external genitalia, small amount of blood noted in vaginal vault Musculoskeletal: Moves all extremities x4, warm and well perfused, no clubbing, cyanosis, or edema, cap refill <3 seconds Integument: Skin warm and dry, no rashes. Psychiatric: Normal affect. See MDM section for review of findings & plan of care. Portions of this note were dictated by speech recognition. An attempt at proof reading was made to minimize errors. Minor errors in tariff compiling clerk may be present. Please call if questions.. HISTORY OF PRESENTING ILLNESS DEBI is a 22 year old Female and was seen by me at 21-Oct-2022 18:38 for a chief complaint of vaginal bleeding (Patient states she is 8 weeks , was seen here on Saturday for abdominal cramping and states I had blood work and Im supposed to followup with Dr Delgado on Saturday. States today started having vaginal bleeding with some clots in it.)(1). Triage Information: Most recent Vital Sign Value Date Temp (F): 98.7 10-21-2022 18:25 Temp (C): 37 10-21-2022 18:25 Heart Rate (beats/min): 110 10-21-2022 18:25 Respirations (breaths/min): 17 10-21-2022 18:25 SpO2 (%): 99 10-21-2022 18:25 BP Systolic (mm Hg): 111 10-21-2022 18:25 BP Diastolic (mm Hg): 89 10-21-2022 18:25 PAST MEDICAL HISTORY ALLERGIES/INTOLERANCES: No Known Allergies HEALTH HISTORY: No documented data. OUTPATIENT MEDICATIONS: Home Medications Review Status for Reconciliation: N/A Med Status: Patient Currently Takes Medications Drug Name: Lexapro 20 mg oral tablet Instructions: 1 tab(s) orally once a day Drug Name: cephalexin 500 mg oral tablet Instructions: 1 tab(s) orally 2 times a day Drug Name: dicyclomine 20 mg oral tablet Instructions: 1 tab(s) orally 4 times a day Drug Name: amoxicillin-clavulanate 875 mg-125 mg oral tablet Instructions: 1 tab(s) orally every 12 hours Drug Name: Ultram 50 mg oral tablet Instructions: 1 tab(s) orally every 6 hours SIGNIFICANT EVENTS: Past Medical History Description:kidney stones CRITICAL CARE RESULTS: Recent Lab Results: I have reviewed these laboratory results: Complete Blood Count + Differential 21-Oct-2022 19:20:00 ResultValue White Blood Cell Count 6.1 Red Blood Cell Count 4.14 HGB 11.8 L HCT 36.3 MCV 88 MCHC 32.5 PLT 188 RDW-CV 13.1 Neutrophil % 61.3 Immature Granulocytes % 0.3 Lymphocyte % 25.4 Monocyte % 10.5 Eosinophil % 2.0 Basophil % 0.5 Neutrophil Count 3.75 Lymphocyte Count 1.55 Monocyte Count 0.64 Eosinophil Count 0.12 Basophil Count 0.03 Basic Metabolic Panel 21-Oct-2022 19:20:00 ResultValue Glucose, Serum 93 NA 140 K 3.5 CL 107 Bicarbonate, Serum 28 Anion Gap, Serum 9 L BUN 8 CREAT 0.57 GFR Female >90 Calcium, Serum 8.6 HCG, Beta Quantitative 21-Oct-2022 19:20:00 ResultValue HCG, Beta Quantitative 761 A Radiology Results: Impression: A single, intrauterine sac-like structure with mildly hyperechoic rim in the endometrial compartment measures a mean diameter 0.23 cm, favored to represent a very early gestational sac. No embryo or yolk sac is visible at this time which may be dueto early dates. Recommend close obstetrical follow-up, serial beta HCG measurements, and repeat ultrasound in 5-7 days to ensure development of yolk sac/embryo. Transvaginal images confirm th (more content not included)... Normal [facility] Risk Screen - Adult Emergenc yon 10-21-2022 Risk Screen - Adult Emergency Preferred Language: Preferred Language: Preferred Language for Discussing Health Care (patient/designee)Ameya zuniga Patient Preferred Pharmacy: Patient Preferred Pharmacy Statement: I have reviewed and updated the patient's preferred pharmacy selection for today's visit. Advanced Directives: Advance Directive/DNRno Advance Directive Information Givenpatient/family declined Family Violence Adult: Abuse Screen: Are you or have you been threatened or abused physically, emotionally, or sexually by anyoneno Learning Assessment (Patient): Learning Assessment (Patient): Patient is Able to be Assessed for Learningyes Factors Influencing Readiness to Learninterest in learning Factors that Impact Ability to Learnnone Devices/Methods Used to Communicatenone Learning Preferencesverbal instruction Cultural Considerationsnone Developmental Considerationsnone Moravian Considerationsnone Learning Assessment (Other Learner): Learning Assessment (Other Learner): Other learner availableno Pressure Injury/TB/Substance: Pressure Injury: Pressure Injury Present on Admissionno Do you have a coughno Smoking Statusmoderate user (uses 11-30 cig/day, OR 0.5-1.5 ppd, OR 2-3 cans/pouches loose leaf tobacco per week, OR 0.5-1.5 vape pods per day) Tobacco Cessation Education (provide if tobacco use within the last 12 mos) patient declined Alcohol Usedenies Drug Usedenies Admission Risk Screen: Significant IndicatorsComplete CAGE: CAGE: Is this an [place] a [place] Center [place]/[place]): no Electronic Signatures: Morena Hwang (RN) (Signed 21-Oct-2022 18:33) Authored: Preferred Language, Patient Preferred Pharmacy, Advanced Directives, Family Violence Adult, Learning Assessment (Patient), Learning Assessment (Other Learner), Pressure Injury/TB/Substance, Pressure Injury, CAGE Last Updated: 21-Oct-2022 18:33 by Morena Hwang (RN) [facility] TYPE + SCREENon 10-21-2022 ABO TYPE A [facility] Comment on above: Performed By: #### T +S ####[place] [id number] RH TYPE Positive [facility] Comment on above: Performed By: #### T +S ####[address] [address] Triage - EDon 10-21-2022 Triage - ED Quick Triage: Are You yes Have You Given In The Last 6 Weeksno Are You Currently Breastfeedingno Chart Review: PRIMARY ASSESSMENT DEBI VERDUZCO's primary assessment is Within Defined Limits. The airway is open and patent. Breathing spontaneous and unlabored with clear breath sounds bilaterally. Circulation is normal with good peripheral pulses. Skin is warm and dry and color is normal for race. ARRIVAL INFORMATION Means of Arrival: Ambulatory Mode of Arrival: private vehicle Arrival From: home Accompanied By: spouse/significant other Language: Spoken Language Preferred: Panamanian CHIEF COMPLAINT DEBI VERDUZCO is a Female patient with a chief complaint of vaginal bleeding (Patient states she is 8 weeks , was seen here on Saturday for abdominal cramping and states I had blood work and Im supposed to followup with Dr Delgado on Saturday. States today started having vaginal bleeding with some clots in it.). Triage Date/Time: 21-Oct-2022 18:20 EDA: 3V Pain Rating (0-10): 7 = Severe Pain location: abdomen Vital Signs: Temperature: 98.7F ( 37.0C) taken temporal Blood Pressure: 111/89 Mean: Heart Rate: 110 Respiratory Rate: 17 Pulse Oximetry: 99% on room air, no respiratory support. Height: 5 feet 5.00 inches. 165.1 CM Weight: 134.4 pounds. Calculated 61.0 kg. 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: Patient has homicidal thoughts: no Risk Screens Suicide Risk Screen In the Past Month: Have you wished you were or wished you could go to sleep and not wake up no In the Past Month: Have you had any actual thoughts of killing yourself no In Your Lifetime: Have you ever done anything, started to do anything, or prepared to do anything to end your life no Interventions: Mccoy Fall Interventions: LOW INTERVENTIONS: *patient oriented to surroundings and call system, * patient/family falls education completed and documented, *patients fall status communicated during bedside handoff, *whiteboard updated, *mode of toileting discussed with patient, *bed in low position with brakes locked, *call light in reach, * non-skid footwear TRAVEL HISTORY Travel History Coronavirus Screening: no exposure or symptoms Travel Exposure History: NO travel to International locations in the past 30 days PAIN Pain Scale Used: ROMULO Pain Rating (0-10): 7 = Severe Past Medical History: Past Medical History Reviewedyes Electronic Signatures: Morena Hwang (DONNELL) (Signed 21-Oct-2022 18:29) Entered: Risk Screens, Pain, Arrival, ABCD, Travel History, Chart Review, Scores, Past Medical History Authored: Quick Triage, Risk Screens, Pain, Arrival, ABCD, Travel History, Chart Review, Scores, Past Medical History Last Updated: 21-Oct-2022 18:29 by Morena Hwang (DONNELL) [facility] PELVIS OB TRANSABDOMINAL W TRANSVAGINAL UP TO 1st TRIMESTERon 10-21-2022 US PELVIS OB TRANSABDOMINAL W TRANSVAGINAL UP TO 1st TRIMESTER Patient Name: DEBI VERDUZCO STUDY: US PELVIS OB TRANSABDOMINAL WITH TRANSVAGINAL; 10/21/2022 9:02 pm INDICATION: vaginal bleeding, cramping . COMPARISON: None. ACCESSION NUMBER(S): [id number] ORDERING CLINICIAN: EMILY CLAROS TECHNIQUE: Grayscale and color Doppler transabdominal and transvaginal images of the pelvis. Spectral Doppler of the ovaries. FINDINGS: LMP = 08/25/2022, beta-hCG = 761 mIU/mL (previously 691 on 10/20/2022, 543 on 10/18/2022 UTERUS: The uterus has a homogeneous echotexture, is anteverted, and measures 7.7 x 3.5 x 4.3 cm. ENDOMETRIUM: The endometrium measures 0.9 cm in thickness. There is a small sac-like fluid-filled structure with mildly hyperechoic rim in the endometrial compartment measures 0.26 cm x 0.2 cm x 0.22 cm with mean diameter of 0.23 cm. There is no the visualized embryo or yolk sac. Gestational age based on mean sac diameter is too small to compute. CERVIX: Closed. RIGHT OVARY: The right ovary measures 3 x 1.8 x 2.7 cm and appears normal. Intact arterial and venous color and spectral Doppler flow. No suspicious adnexal mass is seen. LEFT OVARY: The left ovary measures 3.1 x 1.9 x 2.4 cm and appears normal. Intact arterial and venous color and spectral Doppler flow. No suspicious adnexal mass is seen. FLUID: No free fluid. IMPRESSION: A single, intrauterine sac-like structure with mildly hyperechoic rim in the endometrial compartment measures a mean diameter 0.23 cm, favored to represent a very early gestational sac. No embryo or yolk sac is visible at this time which may be due to early dates. Recommend close obstetrical follow-up, serial beta HCG measurements, and repeat ultrasound in 5-7 days to ensure development of yolk sac/embryo. Transvaginal images confirm the above. Electronically signed by: CALVIN NAIDU MD Normal [facility] HCG, Beta Quantitativeon HCG.beta subunit Qn 691 m[IU]/mL Abnormal [facility] [address] Work Phone: Comment on above: .Total HCG measureme nt is performed using the Karoline Zayda AccessImmunoassay which detects intact HCG and free beta HCG subunit. .This test is not indicated for use as a tumor marker.HCG testing is performed using a different test methodology at [facility] (formerly [facility])[3] than other [facility]. Direct result comparisonshould only be made within the same method. REF VALUESNON FEMALE <5MALES <5.Low-level positive HCG results can be seen in early , in miri- or post-menopausal females due to normal pituitary HCGproduction, or with analytic interference. Repeat testing in 48-72hours can aid in assessing for as results should doublein this time period. FSH measurement is recommended in miri- orpost-menopausal females as concurrent elevation of FSH can supportpituitary production as the source of the HCG elevation. HCG,BETA-QUANTITATIVEon 10-01 HCG,BETA-QUANTITATIVE 691 mIU/mL Abnormal [facility] Comment on above: Result Comment: . Total HCG measurement is performed using the Karoline [place] Access Immunoassay which detects intact HCG and free beta HCG subunit. . This test is not indicated for use as a tumor marker. HCG testing is performed using a different test methodology at [facility] than other [facility]. Direct result comparison should only be made within the same method. REF VALUES NON FEMALE <5 MALES <5 . Low-level positive HCG results can be seen in early , in miri- or post-menopausal females due to normal pituitary HCG production, or with analytic interference. Repeat testing in 48-72 hours can aid in assessing for as results should double in this time period. FSH measurement is recommended in miri- or post-menopausal females as concurrent elevation of FSH can support pituitary production as the source of the HCG elevation. Performed By: #### H CGQU #### [place] [id number] ABO/RH GROUP TESTon 10-19-19 23 ABO TYPE A Normal [facility] Comment on above: Performed By: #### S ALIC #### [address] [address] RH TYPE Positive Normal [facility] Comment on above: Performed By: #### S ALIC #### [address] [address] BASIC METABOLIC PANELon 10-01 Anion gap [Moles/Vol] 6 mmol/L Low [facility] Comment on above: Performed By: #### S ALIC #### [address] [address] Calcium [Mass/Vol] 9.1 mg/dL Normal 8.6 - 10.3 [facility] Comment on above: Performed By: #### S ALIC #### [address] [address] Chloride [Moles/Vol] 105 mmol/L Normal 98 - 107 [facility] Comment on above: Performed By: #### S ALIC #### [address] [address] Creatinine [Mass/Vol] 0.63 mg/dL Normal 0.50 - 1.05 [facility] Comment on above: Performed By: #### S ALIC #### [address] [address] eGFR FEMALE >90 Normal >90 [facility] Comment on above: Result Comment: CALC ULATIONS OF ESTIMATED GFR ARE PERFORMED USING THE 2020 CKD-EPI STUDY REFIT EQUATION WITHOUT THE RACE VARIABLE FOR THE IDMS-TRACEABLE CREATININE METHODS. https://jasn.asnjournals.org/content/early//ASN.29347 88432 Performed By: #### S ALIC #### [address] [address] Glucose [Mass/Vol] 109 mg/dL High 74 - 99 [facility] Comment on above: Performed By: #### S ALIC #### [address] [address] HCO3 (Bld) [Moles/Vol] 30 mmol/L Normal 21 - 32 [facility] Comment on above: Performed By: #### S ALIC #### [address] [address] Potassium [Moles/Vol] 3.4 mmol/L Low 3.5 - 5.3 [facility] Comment on above: Performed By: #### S ALIC #### [address] [address] Sodium [Moles/Vol] 138 mmol/L Normal 136 - 145 [facility] Comment on above: Performed By: #### S ALIC #### [address] [address] Urea nitrogen [Mass/Vol] 8 mg/dL Normal 6 - 23 [facility] Comment on above: Performed By: #### S ALIC #### [address] [address] CBCon 10-19-2022 Erythrocyte distribution width (RBC) [Ratio] 13.1 % Normal 11.5 - 14.5 [facility] Comment on above: Performed By: #### C BC #### [address] [address] Hematocrit (Bld) [Volume fraction] 37.7 % Normal 36.0 - 46.0 [facility] Comment on above: Performed By: #### C BC #### [address] [address] Hemoglobin (Bld) [Mass/Vol] 12.4 g/dL Normal 12.0 - 16.0 [facility] Comment on above: Performed By: #### C BC #### [address] [address] MCHC (RBC) [Mass/Vol] 32.9 g/dL Normal 32.0 - 36.0 [facility] Comment on above: Performed By: #### C BC #### [address] [address] MCV (RBC) [Entitic vol] 87 fL Normal 80 - 100 [facility] Comment on above: Performed By: #### C BC #### [address] [address] Platelets (Bld) [#/Vol] 208 10*3/uL Normal 150 - 450 [facility] Comment on above: Performed By: #### C BC #### [address] [address] RBC 4.32 x10E12/L Normal 4.00 - 5.20 [facility] Comment on above: Performed By: #### C BC #### [address] [address] WBC (Bld) [#/Vol] 7.1 10*3/uL Normal 4.4 - 11.3 [facility] Comment on above: Performed By: #### C BC #### [facility] [address] [place] [address] HCG,BETA-QUANTITATIVEon 10-01 HCG,BETA-QUANTITATIVE 543 mIU/mL Abnormal [facility] Comment on above: Result Comment: . Total HCG measurement is performed using the Karoline Zayda Access Immunoassay which detects intact HCG and free beta HCG subunit. . This test is not indicated for use as a tumor marker. HCG testing is performed using a different test methodology at [facility] than other [facility]. Direct result comparison should only be made within the same method. REF VALUES NON FEMALE <5 MALES <5 . Low-level positive HCG results can be seen in early , in miri- or post-menopausal females due to normal pituitary HCG production, or with analytic interference. Repeat testing in 48-72 hours can aid in assessing for as results should double in this time period. FSH measurement is recommended in miri- or post-menopausal females as concurrent elevation of FSH can support pituitary production as the source of the HCG elevation. Performed By: #### H CGQU ####[place] [id number] [place] [address] Provider Note - ED v3on 10-01 Provider Note - ED v3 Provider Note: Chart Review: ED NOTES ED NOTES: HPI: Patient is a 22-year-old G2, P1 at approximately 8 weeks by LMP presenting with abdominal cramping. Patient states that the first day of her last menstrual period was August 25, 2022. She reports that she has taken 3 positive home test the past week. Patient states she had an outpatient ultrasound ordered by her [employer] Dr. Delgado. She states this was done at an facility today and that nothing was seen. She states she had blood work drawn at [place], it is unaware of the results. Patient denies any vaginal bleeding or dysuria. She denies any fevers. Patient states that she was nervous when she received her results today and wanted to come to the emergency department for further testing. She denies any complications in her first or delivery. Patient has no other complaints at this time. Limitations to history: none identified Independent Historians: patient External Records Reviewed: [HIE, OARRS, outpatient notes, inpatient notes, paper charts] -------- ROS: a ten point review of systems was performed and was negative except as per HPI. -------- PMH / PSH: as per HPI, otherwise reviewed in EMR and significant for: denies MEDS: as per HPI, otherwise reviewed in EMR and significant for: lexapro ALLERGIES: as per HPI, otherwise reviewed in EMR and significant for: NKDA SocH: as per HPI, otherwise reviewed in EMR and significant for: denies EtOH or drug use FH: as per HPI, otherwise reviewed in EMR and significant for: non contributory -------- Physical Exam: VS: As documented in the triage note and EMR flowsheet from this visit was reviewed General: Well appearing. No acute distress. Eyes: Extraocular movements grossly intact. No scleral icterus. HEENT: Atraumatic. Normocephalic. Neck: No meningismus. No gross masses CV: Regular rhythm. No murmurs, rubs, gallops appreciated. Resp: Clear to auscultation bilaterally. No respiratory distress. GI: Soft, no masses. MSK: Symmetric muscle bulk. No gross step offs or deformities. Skin: Warm, dry, intact. Neuro: Speech fluent. Alert. Psych: Appropriate mood and affect for situation -------- HISTORY OF PRESENTING ILLNESS DEBI is a 22 year old Female and was seen by me at 18-Oct-2022 22:28 for a chief complaint of abdominal pain (Pt is 8 weeks and c/o cramping. Pt stated urine and stools have been normal. Pt had a ultrasound earlier today at center in [place] and the said that there was nothing that they can see. Pt is wanting a ultrasound done here.) . Triage Information: Most recent Vital Sign Value Date Temp (F): 97.6 10-18-2022 22:18 Temp (C): 36.4 10-18-2022 22:18 Heart Rate (beats/min): 86 10-18-2022 22:18 Respirations (breaths/min): 16 10-18-2022 22:18 SpO2 (%): 98 10-18-2022 22:18 BP Systolic (mm Hg): 123 10-18-2022 22:18 BP Diastolic (mm Hg): 72 10-18-2022 22:18 PAST MEDICAL HISTORY ALLERGIES/INTOLERANCES: No Known Allergies HEALTH HISTORY: No documented data. OUTPATIENT MEDICATIONS: Home Medications Review Status for Reconciliation: N/A Med Status: Patient Currently Takes Medications Drug Name: Lexapro 20 mg oral tablet Instructions: 1 tab(s) orally once a day Drug Name: cephalexin 500 mg oral tablet Instructions: 1 tab(s) orally 2 times a day Drug Name: dicyclomine 20 mg oral tablet Instructions: 1 tab(s) orally 4 times a day Drug Name: amoxicillin-clavulanate 875 mg-125 mg oral tablet Instructions: 1 tab(s) orally every 12 hours Drug Name: Ultram 50 mg oral tablet Instructions: 1 tab(s) orally every 6 hours SIGNIFICANT EVENTS: Past Medical History Description:kidney stones CRITICAL CARE RESULTS: Recent Lab Results: I have reviewed these laboratory results: Complete Blood Count 18-Oct-2022 22:43:00 ResultValue White Blood Cell Count 7.1 Red Blood Cell Count 4.32 HGB 12.4 HCT 37.7 MCV 87 MCHC 32.9 PLT 208 RDW-CV 13.1 Basic Metabolic Panel 18-Oct-2022 22:43:00 ResultValue Glucose, Serum 109 H NA 138 K 3.4 L CL 105 Bicarbonate, Serum 30 Anion Gap, Serum 6 L BUN 8 CREAT 0.63 GFR Female >90 Calcium, Serum 9.1 HCG, Beta Quantitative 18-Oct-2022 22:43:00 ResultValue HCG, Beta Quantitative 543 A VITAL SIGNS: T PRBP SpO2O2(LPM) %FiO2 Method 18-Oct-2022 22:18:[id number]/72 98 room (more content not included)... Normal [facility] Triage - EDon 10-19-2022 Triage - ED Quick Triage: Are You yes Have You Given In The Last 6 Weeksno Are You Currently Breastfeedingno Risk Screens: Chart Review: ARRIVAL INFORMATION Mode of Arrival: private vehicle CHIEF COMPLAINT DEBI VERDUZCO is a Female patient with a chief complaint of abdominal pain (Pt is 8 weeks and c/o cramping. Pt stated urine and stools have been normal. Pt had a ultrasound earlier today at center in [place] and the said that there was nothing that they can see. Pt is wanting a ultrasound done here.). Triage Date/Time: 18-Oct-2022 22:18 EDA: 3V Pain Rating (0-10): 7 = Severe Pain location: Lower abdomen Vital Signs: Temperature: 97.6F ( 36.4C) taken temporal Blood Pressure: 123/72 Mean: Heart Rate: 86 Respiratory Rate: 16 Pulse Oximetry: 98% on room air, no respiratory support. Height: 5 feet 5.00 inches. 165.1 CM Weight: 135.8 pounds. Calculated 61.6 kg. (stated) Calculated BMI (kg/m2): 22.598 Calculated BSA (m2) 1.68 Ferdinand Coma Scale: Best Eye Response: (E4) spontaneous Best Motor Response: (M6) obeys commands Best Verbal Response: (V5) oriented [place] Score: 15 Allergies: no Last menstrual period: 25-Aug-2022 Patient has homicidal thoughts: no Risk Screens Suicide Risk Screen In the Past Month: Have you wished you were or wished you could go to sleep and not wake up no In the Past Month: Have you had any actual thoughts of killing yourself no In Your Lifetime: Have you ever done anything, started to do anything, or prepared to do anything to end your life no Interventions: Mccoy Fall Interventions: LOW INTERVENTIONS: *patient oriented to surroundings and call system, * patient/family falls education completed and documented, *patients fall status communicated during bedside handoff, *whiteboard updated, *mode of toileting discussed with patient, *bed in low position with brakes locked, *call light in reach, * non-skid footwear TRAVEL HISTORY Travel History Coronavirus Screening: no exposure or symptoms Travel Exposure History: NO travel to International locations in the past 30 days PAIN Pain Scale Used: ROMULO Pain Rating (0-10): 7 = Severe Past Medical History: Past Medical History Reviewedyes kidney stones: Past Medical History, Active Electronic Signatures: Elkin Dee (EMT-P) (Signed 18-Oct-2022 22:23) Entered: Risk Screens, Pain, Travel History, Chart Review, Scores, Past Medical History Authored: Quick Triage, Risk Screens, Pain, Travel History, Chart Review, Scores, Past Medical History Tamar Castañeda (RN) (Signed 18-Oct-2022 23:30) Authored: Quick Triage, Risk Screens, Chart Review Last Updated: 18-Oct-2022 23:30 by Tamar Castañeda (RN) [facility] Blood Typing (ABO + Rho D)on 10-18-2022 ABO group Nom (Bld) [facility] [address] Work Phone: [phone] Rh immune globulin screen (Bld) [Interp] Positive [facility] [address] Work Phone: [phone] HCG, Beta Quantitativeon HCG.beta subunit Qn 543 m[IU]/mL Abnormal [facility] [address] Work Phone: [phone] Comment on above: .Total HCG measureme nt is performed using the Karoline [place] AccessImmunoassay which detects intact HCG and free beta HCG subunit. .This test is not indicated for use as a tumor marker.HCG testing is performed using a different test methodology at [facility] ([facility]3] than other [facility]. Direct result comparisonshould only be made within the same method. REF VALUESNON FEMALE <5MALES <5.Low-level positive HCG results can be seen in early , in miri- or post-menopausal females due to normal pituitary HCGproduction, or with analytic interference. Repeat testing in 48-72hours can aid in assessing for as results should doublein this time period. FSH measurement is recommended in miri- orpost-menopausal females as concurrent elevation of FSH can supportpituitary production as the source of the HCG elevation. Laboratory - Chemistry and C hemistry - challengeon 10-18-2022 Anion gap [Moles/Vol] 6 mmol/L below low threshold 10 - 20 [facility] [address] Work Phone: [phone] Calcium [Mass/Vol] 9.1 mg/dL 8.6 - 10.3 [facility] [address] Work Phone: [phone] Chloride [Moles/Vol] 105 mmol/L 98 - 107 [facility] [place] [address] Work Phone: [phone] CO2 [Moles/Vol] 30 mmol/L 21 - 32 [facility] [address] Work Phone: [phone] Creatinine [Mass/Vol] 0.63 mg/dL See Below [facility] [address] Work Phone: [phone] Comment on above: Reference Range: 0.5 0 - 1.05 Glucose [Mass/Vol] 109 mg/dL above high threshold 74 - 99 [facility] [address] Work Phone: [phone] Potassium [Moles/Vol] 3.4 mmol/L below low threshold 3.5 - 5.3 [facility] [address] Work Phone: [phone] Sodium [Moles/Vol] 138 mmol/L 136 - 145 [facility] [employer] Work Phone: [phone] Urea nitrogen [Mass/Vol] 8 mg/dL 6 - 23 [facility] [employer] Work Phone: [phone] Laboratory - Hematology and Cell countson 10-18-2022 Erythrocyte distribution width (RBC) [Ratio] 13.1 % See Below [facility] [address] Work Phone: [phone] Comment on above: Reference Range: 11. 5 - 14.5 Hematocrit (Bld) [Volume fraction] 37.7 % See Below [facility] [facility] [address] Work Phone: [phone] Comment on above: Reference Range: 36. 0 - 46.0 Hemoglobin (Bld) [Mass/Vol] 12.4 g/dL See Below [facility] [address] Work Phone: [phone] Comment on above: Reference Range: 12. 0 - 16.0 MCHC (RBC) [Mass/Vol] 32.9 g/dL See Below [facility] [address] Work Phone: [phone] Comment on above: Reference Range: 32. 0 - 36.0 MCV (RBC) [Entitic vol] 87 fL 80 - 100 [facility] [address] Work Phone: [phone] Platelets (Bld) [#/Vol] 208 10*3/uL 150 - 450 [facility] [address] Work Phone: [phone] RBC (Bld) [#/Vol] 4.32 {x10E12/L} See Below [facility] [place] [address] Work Phone: [phone] Comment on above: Reference Range: 4.0 0 - 5.20 WBC (Bld) [#/Vol] 7.1 10*3/uL 4.4 - 11.3 [facility] [address] Work Phone: [phone] No Panel Informationon 10-18 >90 >90 [facility] [address] Work Phone: [phone] Comment on above: CALCULATIONS OF NILSON MATED GFR ARE PERFORMED USING THE 2020 CKD-EPI STUDY REFIT EQUATION WITHOUT THE RACE VARIABLE FOR THE IDMS-TRACEABLE CREATININE METHODS.https://jasn.asnjournals.org/content/early/A SN.0299685050 Serum or plasma choriogonado tropin detectionOrdered By: Dr. Us on 10-18-2022 HCG ( test) Ql 391 mIU/mL <4 [facility] Comment on above: hCG levels with Gest ational AgeGestational Age hCG mIU/mL (IU/L)0.2 - 1 week 5 - 501-2 weeks 50 - 5002-3 weeks 100 - 71994-4 weeks 500 - 673550-6 weeks 1000 - 907870-8 weeks 75385 - 100,0006-8 weeks 21210 - 200,0002-3 months 22745 - 100,000 Office Visit (Primary Care F orfl)on 10-17-2022 Follow-up visit Diagnosis/Problems Assessed Anxiety (300.00) (F41.9) 03/07/22: GAD7: severe anxiety BMI 22.0-22.9, adult (V85.1) (Z68.22) 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.23) (F32.2) 03/07/22 PHQ9 Severe depression Patient Discussion/Summary follow up as needed. Anxiety: continue on Escitalopram until talks to OB. If needs changed medication she will let us know. Chief Complaint 6 month check. Recently found out 7 weeks 4 days History of Present IllnessDebi returns for medication check. Anxiety: taking Escitalopram 20 mg daily. Doing well on this dose. is about 7 weeks. has appointment with OB next week. Scores and Scales [place] Suicide Severity Rating Scale [id number] 09:24PM (Past Month) Have you wished you were or wished you could go to sleep and not wake up?Yes-Low Risk (Past Month) Have you actually had any thoughts of killing yourself?Yes-Low Risk (Past Month) Have you been thinking about how you might kill yourself?No (Past Month) Have you had these thoughts and had some intention of acting on them?No (Past Month) Have you started to work out or worked out the details of how to kill yourself?No (Lifetime) Have you ever done anything, started to do anything, or prepared to do anything to end your life?No If Yes, Was this in the last 3 months?No Review of Systems Constitutional: not feeling tired. Psychiatric: no mood changes, no sleep disturbances, no substance use, no feelings of anxiety, no panic attacks, no feelings of depression and no suicidal thoughts. Active Problems Problems Abnormal uterine bleeding (AUB) (626.9) (N93.9) Amenorrhea (626.0) (N91.2) Anxiety (300.00) (F41.9) 03/07/22: GAD7: 19 severe anxiety control counseling (V25.09) (Z30.09) BMI 22.0-22.9, adult (V85.1) (Z68.22) Chlamydia (079.98) (A74.9) 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.23) (F32.2) 03/07/22 PHQ9 Severe depression Encounter for initial prescription of implantable subdermal contraceptive (V25.02) (Z30.017) Encounter for Nexplanon removal (V25.43) (Z30.46) Pelvic pain (R10.2) Screening for STDs (sexually transmitted diseases) (V74.5) (Z11.3) Past Medical History Problems History of Chlamydia (079.98) (A74.9) History of Encounter to establish care (V65.8) (Z76.89) History of hematuria (V13.09) (Z87.448) Resolved Date: 22 Oct 2019 History of (V13.29) 11/23/2019-39 WEEKS, FEMALE, #6 12OZ, VAGINAL History of Menarche (V21.8) AGE 11 History of Negative test (V72.41) (Z32.02) History of Positive depression screening (796.4) (Z13.31) History of exam (V24.2) (Z39.2) Surgical History Problems History of Tonsillectomy Family History Mother Family history of depression (V17.0) (Z81.8) Sibling Family history of Healthy adult Maternal Grandmother Family history of malignant neoplasm of colon (V16.0) (Z80.0) Maternal Grandfather Family history of malignant neoplasm of colon (V16.0) (Z80.0) Social History Problems Consumes caffeine from carbonated beverages (V49.89) (Z78.9) Current every day use of combustion-free vaporization device (V69.8) (Z72.89) Does not use illicit drugs (V49.89) (Z78.9) Electronic cigarette use (305.1) (Z78.9) No advance directives (V49.89) (Z78.9) Occasional alcohol use Sexually active Current Meds Medication NameInstruction Escitalopram Oxalate 20 MG Oral TabletTAKE ONE TABLET BY MOUTH ONE TIME DAILY Vitamin Plus Low Iron 27-1 MG TABSTAKE 1 TABLET DAILY. Allergies Medication No Known Drug Allergies Recorded By: Rachel Humphries; 09/21/2019 2:14:11 PM Vitals Vital Signs Recorded: 17Oct2022 02:44PM Heart Rate84 Nnxycurq27 Psnzusali77 Height5 ft 5 in Rllovf790 lb BMI Hunuzbtbwa05.63 kg/m2 BSA Calculated1.68 Tobacco Usea) Yes Physical Exam Constitutional - Well developed, well nourished, well hydrated and no acute distress. Vital signs reviewed. Pulmonary - normal respiratory effort. Musculoskeletal - Gait and station: Normal. Psychiatric - Mood and affect: Normal. Judgment and insight: Intact. Alert and oriented x 3. Recent and remote memory: Normal. Signatures Electronically signed by : ROSCOE Caballero; Oct 17 2022 3:10PM EST (Author) Normal [employer] Tobacco Screening.on 023 Tobacco use status [facility]PHS a) Yes [facility] [address] Work Phone: Provider Note - ED v3on 08-01 Provider Note - ED v3 Provider Note: Chart Review: ED NOTES ED NOTES: ====HPI==== Patient is a 22-year-old female who presents to the emergency department with a chief complaint of left-sided facial swelling. She states that her swelling started yesterday along with pain to her level left lower back tooth. She states that she has been told that she needs her wisdom tooth removed. She states that it was not bothering her until recently. She noticed that her face is swollen and painful. She has tried sfxm-zzg-asfgkew medication without any success. She denies any fever or chills. PMHX: Denies Social HX: Vapes TOBACCO Denies ETOH Denies DRUGS ====Review of Systems==== 10 point system review is negative except for those specifically mentioned in history of present illness ====Physical Exam==== Constitutional/General: Alert and oriented x3, well appearing, nontoxic, and in NAD. Head: Normocephalic and atraumatic. Eyes: PERRL, EOMI, conjunctive normal, sclera nonicteric, subconjunctival layer is pink. Mouth: Tooth number 17 with swelling around gum. No drainable abscess. No trismus. uvula is midline. Oropharynx clear, handling secretions, no trismus, no asymmetry of the posterior oropharynx or uvular edema Neck: Supple, full ROM, non tender to palpation in the midline, no stridor, no crepitus, no meningeal signs. Trachea at midline. Respiratory: Lungs clear to auscultation bilaterally, no wheezes, rales, or rhonchi, not in respiratory distress. Cardiovascular: Regular rate, regular rhythm, no murmurs, gallops, or rubs, 2+ distal pulses. Chest: normal chest wall movement Musculoskeletal: Moves all extremities x4, warm and well perfused Integument: Skin warm and dry, no rashes. Neurologic: GCS 15, no focal deficits, symmetric strength 5/5 in the upper and lower extremities bilaterally. Psychiatric: Normal affect. ====ED Course and Medical Decision Making==== See MDM section for review of findings & plan of care. Portions of this note were dictated by speech recognition. An attempt at proof reading was made to minimize errors. Minor errors in tariff compiling clerk may be present. Please call if questions.. HISTORY OF PRESENTING ILLNESS DEBI is a 22 year old Female and was seen by me at 23-Aug-2022 13:38 for a chief complaint of facial swelling (c/o left facial swelling/pain since yesterday. denies fever)(1). Triage Information: Most recent Vital Sign Value Date Temp (F): 97.8 08-23-2022 13:41 Temp (C): 36.5 08-23-2022 13:41 Heart Rate (beats/min): 90 08-23-2022 13:41 Respirations (breaths/min): 16 08-23-2022 13:41 SpO2 (%): 97 08-23-2022 13:41 BP Systolic (mm Hg): 118 08-23-2022 13:41 BP Diastolic (mm Hg): 72 08-23-2022 13:41 PAST MEDICAL HISTORY ALLERGIES/INTOLERANCES: No Known Allergies HEALTH HISTORY: No documented data. OUTPATIENT MEDICATIONS: Home Medications Review Status for Reconciliation: Not Done Med Status: Patient Currently Takes Medications Drug Name: Lexapro 20 mg oral tablet Instructions: 1 tab(s) orally once a day Drug Name: cephalexin 500 mg oral tablet Instructions: 1 tab(s) orally 2 times a day Drug Name: dicyclomine 20 mg oral tablet Instructions: 1 tab(s) orally 4 times a day Drug Name: amoxicillin-clavulanate 875 mg-125 mg oral tablet Instructions: 1 tab(s) orally every 12 hours Drug Name: Ultram 50 mg oral tablet Instructions: 1 tab(s) orally every 6 hours SIGNIFICANT EVENTS: Past Medical History Description:kidney stones CRITICAL CARE VITAL SIGNS: T PRBP SpO2O2(LPM) %FiO2 Method 23-Aug-2022 13:41:[id number]/72 97 room air, no respiratory support 23-Aug-2022 13:37:[id number]/72 97 room air, no respiratory support DISPOSITION Diagnosis/Annotation: ED Dx Name:Pain, dental Code:K08.89 Disposition: discharged Type: home CONSULT CRITICAL CARE TIME Is this a critically ill patient: no Electronic Signatures: Emily Claros (PAC) (Signed 23-Aug-2022 14:23) Authored: ED Notes, HPI, PMH, Results/Vital Signs, Clinical Impression, Attestation, Chart Review, Scores Last Updated: 23-Aug-2022 14:23 by Emily Claros (PAC) References: 1. Data Referenced From Triage - ED 23-Aug-2022 13:41 Normal [facility] Risk Screen - Adult Emergenc yon 08-23-2022 Risk Screen - Adult Emergency Preferred Language: Preferred Language: Preferred Language for Discussing Health Care (patient/designee)Ameya zuniga Patient Preferred Pharmacy: Patient Preferred Pharmacy Statement: I have reviewed and updated the patient's preferred pharmacy selection for today's visit. Advanced Directives: Advance Directive/DNRno Family Violence Adult: Abuse Screen: Are you or have you been threatened or abused physically, emotionally, or sexually by anyoneno Learning Assessment (Patient): Learning Assessment (Patient): Patient is Able to be Assessed for Learningyes Factors Influencing Readiness to Learnn/a Factors that Impact Ability to Learnnone Devices/Methods Used to Communicatenone Learning Preferencesverbal instruction Cultural Considerationsnone Developmental Considerationsnone Moravian Considerationsnone Other Learnerssignificant other Learning Assessment (Other Learner): Learning Assessment (Other Learner): Other learner availableyes... Learnersignificant other Factors Influencing Readiness to Learnn/a Factors that Impact Ability to Learnnone Devices/Methods Used to Communicatenone Learning Preferencesverbal instruction Cultural Considerationsnone Developmental Considerationsnone Moravian Considerationsnone Pressure Injury/TB/Substance: Pressure Injury: Do you have a coughno Smoking Statusmoderate user (uses 11-30 cig/day, OR 0.5-1.5 ppd, OR 2-3 cans/pouches loose leaf tobacco per week, OR 0.5-1.5 vape pods per day) Tobacco Cessation Education (provide if tobacco use within the last 12 mos) patient declined Alcohol Useoccasionally Drug Usedenies Admission Risk Screen: Significant IndicatorsComplete CAGE: CAGE: Is this an [place] a [place] Center [place] [place] [facility] /[place] no Electronic Signatures: Teresa Contreras (RN) (Signed 23-Aug-2022 13:48) Authored: Preferred Language, Patient Preferred Pharmacy, Advanced Directives, Family Violence Adult, Learning Assessment (Patient), Learning Assessment (Other Learner), Pressure Injury/TB/Substance, Pressure Injury, CAGE Last Updated: 23-Aug-2022 13:48 by Teresa Contreras (RN) [facility] Triage - EDon 08-23-2022 Triage - ED Quick Triage: Are You no Have You Given In The Last 6 Weeksno Are You Currently Breastfeedingno Chart Review: PRIMARY ASSESSMENT ABCD Normal Findings: airway open and patent, circulation normal and alert and oriented ARRIVAL INFORMATION Means of Arrival: Ambulatory Mode of Arrival: private vehicle Arrival From: home Accompanied By: self Language: Spoken Language Preferred: Panamanian Reading Language Preferred: Panamanian Present on Arrival: Device Present on Arrival to ED: no CHIEF COMPLAINT DEBI VERDUZCO is a Female patient with a chief complaint of facial swelling (c/o left facial swelling/pain since yesterday. denies fever). Triage Date/Time: 23-Aug-2022 13:37 EDA: 5 Pain Rating (0-10): 9 = Severe Pain location: face Vital Signs: Temperature: 97.8F ( 36.5C) taken temporal Blood Pressure: 118/72 Mean: Heart Rate: 90 Respiratory Rate: 16 Pulse Oximetry: 97% on room air, no respiratory support. Height: 5 feet 5.00 inches. 165.1 CM Weight: 135.1 pounds. Calculated 61.3 kg. (stated) Calculated BMI (kg/m2): 22.488 Calculated BSA (m2) 1.68 Ferdinand Coma Scale: Best Eye Response: (E4) spontaneous Best Motor Response: (M6) obeys commands Best Verbal Response: (V5) oriented Ferdinand Score: 15 Allergies: no Last menstrual period: 18-Jan-2022 Patient has homicidal thoughts: no Symptoms Are POSITIVE For: jaw pain. Risk Screens Suicide Risk Screen In the Past Month: Have you wished you were or wished you could go to sleep and not wake up no In the Past Month: Have you had any actual thoughts of killing yourself no In Your Lifetime: Have you ever done anything, started to do anything, or prepared to do anything to end your life no Interventions: Mccoy Fall Interventions: LOW INTERVENTIONS: *patient oriented to surroundings and call system, * patient/family falls education completed and documented, *patients fall status communicated during bedside handoff, *whiteboard updated, *mode of toileting discussed with patient, *bed in low position with brakes locked, *call light in reach, * non-skid footwear TRAVEL HISTORY Travel History Coronavirus Screening: no exposure or symptoms Travel Exposure History: NO travel to International locations in the past 30 days PAIN Pain Scale Used: ROMULO Pain Rating (0-10): 9 = Severe Past Medical History: Past Medical History Reviewedyes Electronic Signatures: Teresa Contreras (RN) (Signed 23-Aug-2022 13:53) Authored: Quick Triage, Risk Screens, Pain, Arrival, ABCD, Travel History, Chart Review, Scores, Past Medical History Last Updated: 23-Aug-2022 13:53 by Teresa Contreras (RN) [facility] HCG, Urine Test on 08-13-2022 HCG ( test) Ql (U) Negative Normal [facility] [address] Work Phone: FINISHER CARD TENDER - Office Visiton 07-31 FINISHER CARD TENDER - Office Visit Diagnoses/Problems Assessed Negative test (V72.41) (Z32.02) Amenorrhea (626.0) (N91.2) Orders Start: medroxyPROGESTERone Acetate 10 MG Oral Tablet (Provera); TAKE 1 TABLET DAILY Provider Impressions 1. Amenorrhea Urine test today is negative. We will prescribe Provera 10 mg daily for 10 days for withdrawal. Follow-up in the office as previously scheduled. Chief Complaint Patient is here due to no periods. Patient had her last Depo shot in December and was given progesterone 5mg for 10 days that she started on Jul 11 and she still has not had a period. History of Present IllnessPatient presents stating that she has not had a menstrual flow after a course of Provera 5 mg for 10 days for withdrawal challenge in mid June. Patient had received her Depo-Provera shot in December and has had no menstrual flow since then. Review of Systems Review of Systems: Constitutional: No fever or chills Respiratory: No shortness of breath, or cough Cardiovascular: No chest pain or syncope Breasts: No breast pain, no masses, no nipple discharge Gastrointestinal: No nausea, vomiting, or diarrhea, no abdominal pain Genitourinary: No dysuria or frequency Gynecology: Negative except as noted in history of present illness All other: All other systems reviewed and negative for complaint Active Problems Problems Abnormal uterine bleeding (AUB) (626.9) (N93.9) Anxiety (300.00) (F41.9) 03/07/22: GAD7: severe anxiety control counseling (V25.09) (Z30.09) BMI less than 19,adult (V85.0) (Z68.1) Chlamydia (079.98) (A74.9) 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.23) (F32.2) 03/07/22 PHQ9 Severe depression Encounter for initial prescription of implantable subdermal contraceptive (V25.02) (Z30.017) Encounter for Nexplanon removal (V25.43) (Z30.46) Encounter to establish care (V65.8) (Z76.89) Negative test (V72.41) (Z32.02) Pelvic pain (R10.2) Positive depression screening (796.4) (Z13.31) exam (V24.2) (Z39.2) Screening for STDs (sexually transmitted diseases) (V74.5) (Z11.3) Past Medical History Problems History of Chlamydia (079.98) (A74.9) History of hematuria (V13.09) (Z87.448) Resolved Date: 22 Oct 2019 History of (V13.29) 11/23/2019-39 WEEKS, FEMALE, #6 12OZ, VAGINAL History of Menarche (V21.8) AGE 11 Surgical History Problems History of Tonsillectomy Family History Mother Family history of depression (V17.0) (Z81.8) Sibling Family history of Healthy adult Maternal Grandmother Family history of malignant neoplasm of colon (V16.0) (Z80.0) Maternal Grandfather Family history of malignant neoplasm of colon (V16.0) (Z80.0) Social History Problems Consumes caffeine from carbonated beverages (V49.89) (Z78.9) Current every day use of combustion-free vaporization device (V69.8) (Z72.89) Does not use illicit drugs (V49.89) (Z78.9) Electronic cigarette use (305.1) (Z78.9) No advance directives (V49.89) (Z78.9) Occasional alcohol use Sexually active Allergies Medication No Known Drug Allergies Recorded By: Rachel Humphries; 09/21/2019 2:14:11 PM Current Meds Medication NameInstruction Escitalopram Oxalate 20 MG Oral TabletTAKE ONE TABLET BY MOUTH ONE TIME DAILY medroxyPROGESTERone Acetate 5 MG Oral TabletTAKE 1 TABLET DAILY. Vitamin Plus Low Iron 27-1 MG Oral TabletTAKE 1 TABLET DAILY. Vitals Vital Signs Recorded: 13Aug2022 02:06PM Jcrtvnix825 Qjdyhrgfi41 Height5 ft 5 in Dvtswo44.3 kg BMI Xagiuguonc16.49 kg/m2 BSA Calculated1.67 Tobacco Usea) Yes Patient encouraged to stop using tobacco productsYes PHQ-2 #1. Over the last 2 weeks have you felt down, depressed or hopeless? (If yes, answer PHQ-9 below)No PHQ-2 #2. Over the last 2 weeks have you felt little interest or pleasure in doing things? (If yes, answer PHQ-9 below)No Falls Screening (Age 18+)a) No falls within the last year Physical Exam General: No acute distress Eye: Intraocular movements are intact HEENT: Normocephalic Respiratory: Respirations are nonlabored Gastrointestinal: Nondistended Musculoskeletal: Normal range of motion Neurologic: Alert and oriented x3 Psychiatric: Cooperative, appropriate mood and affect. Signatures Electronically signed by : Jose Delgado MD; Aug 13 2022 2:20PM EST (Author) Normal [facility] Tobacco Screening.on Adult depression screening assessment No [facility] [address] Work Phone: Fall risk assessment a) No falls within the last year [facility] [address] Work Phone: Tobacco use status CPHS a) Yes [facility] [address] [employer] [employer] Phone: Tobacco Screening. Yes [facility] [address] Work Phone: IO HCG, Urine Test on 07-11-2022 HCG ( test) Ql (U) Negative [facility] [address] Work Phone: FINISHER CARD TENDER - Office Visiton 06-30 FINISHER CARD TENDER - Office Visit Diagnoses/Problems Assessed Pelvic pain (R10.2) Abnormal uterine bleeding (AUB) (626.9) (N93.9) Negative test (V72.41) (Z32.02) Orders Start: medroxyPROGESTERone Acetate 5 MG Oral Tablet; TAKE 1 TABLET DAILY Follow-up PRN Outpatient Follow-up Status: Active Requested for: 11Jul2022 Start: Vitamin Plus Low Iron 27-1 MG Oral Tablet; TAKE 1 TABLET DAILY IO HCG, Urine Test; Status:Complete; Done: 11Jul2022 03:35PM Provider Impressions 1) pelvic pain-unclear etiology. Small cyst on ultrasound likely the culprit. Given the chronicity of this. Discussed potential scarring from gonorrhea chlamydia versus endometriosis in the differential. She also require diagnostic laparoscopy. Also shows potentially starting control patient was interested in fertility. At this point time we will monitor expectantly and if any further work-up indicated patient voiced understanding agreed proceed 2) AUB-slight oligo likely related to finishing up Depo shot. Will progesterone withdrawal today given test. Precautions reviewed. All questions answered Chief Complaint PT IS HERE TODAY FOR U/S RESULTS. HAS NO NEW CONCERNS. History of Present [id number] presents for results review. Patient interested in fertility and would like to have a cycle here shortly to start that process. Patient's been almost a month since her last Depo shot. Patient is no acute concerns. Patient went to the ED and found out that a CT really showed nothing. Review of Systems Constitutional: No fevers, chills Eye:no vision changes Respiratory: no SOB Cardiovascular: no chest pain Gastrointestinal: No nausea, vomiting, diarrhea, constipation, abdominal pain Genitourinary:no dysuria Gynecology: See HPI Active Problems Problems Abnormal uterine bleeding (AUB) (626.9) (N93.9) Anxiety (300.00) (F41.9) 03/07/22: GAD7: severe anxiety control counseling (V25.09) (Z30.09) BMI less than 19,adult (V85.0) (Z68.1) Chlamydia (079.98) (A74.9) 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.23) (F32.2) 03/07/22 PHQ9 Severe depression Encounter for initial prescription of implantable subdermal contraceptive (V25.02) (Z30.017) Encounter for Nexplanon removal (V25.43) (Z30.46) Encounter to establish care (V65.8) (Z76.89) Negative test (V72.41) (Z32.02) Pelvic pain (R10.2) Positive depression screening (796.4) (Z13.31) exam (V24.2) (Z39.2) Screening for STDs (sexually transmitted diseases) (V74.5) (Z11.3) Past Medical History Problems History of Chlamydia (079.98) (A74.9) History of hematuria (V13.09) (Z87.448) Resolved Date: 22 Oct 2019 History of (V13.29) 11/23/2019-39 WEEKS, FEMALE, #6 12OZ, VAGINAL History of Menarche (V21.8) AGE 11 Surgical History Problems History of Tonsillectomy Family History Mother Family history of depression (V17.0) (Z81.8) Sibling Family history of Healthy adult Maternal Grandmother Family history of malignant neoplasm of colon (V16.0) (Z80.0) Maternal Grandfather Family history of malignant neoplasm of colon (V16.0) (Z80.0) Social History Problems Consumes caffeine from carbonated beverages (V49.89) (Z78.9) Current every day use of combustion-free vaporization device (V69.8) (Z72.89) Does not use illicit drugs (V49.89) (Z78.9) Electronic cigarette use (305.1) (Z78.9) No advance directives (V49.89) (Z78.9) Occasional alcohol use Sexually active Allergies Medication No Known Drug Allergies Recorded By: Rachel Humphries; 09/21/2019 2:14:11 PM Current Meds Medication NameInstruction Escitalopram Oxalate 20 MG Oral TabletTAKE ONE TABLET BY MOUTH ONE TIME DAILY Vitals Vital Signs Recorded: 11Jul2022 03:18PM Nkqhqpsf394 Ubagnljyl25 Height5 ft 5 in Aiueuj410 lb 8.64 oz BMI Shxqdsnkso24.06 kg/m2 BSA Calculated1.63 Physical Exam General: None acute distress Eye: Intraocular movements are intact HEENT: Normocephalic Cardiovascular: Regular rate Respiratory: Respirations are nonlabored Gastrointestinal: Nondistended Musculoskeletal: Normal range of motion Neurologic: Alert and oriented x3 Psychiatric: Cooperative appropriate mood and affect. Results/Data IO HCG, Urine [id number] 03:35PMKeara Mckenzie MEDLINE LOT: [id number] EXP: 09/29/2023 Test NameResultFlagReference IO Urine hCGNegative CT Abdomen and Pelvis with IV [id number] 10:55PMNon Ambulatory, Provider Ordering Provider: WILLIAM CERDA [id number] Abdomen and Pelvis with Contrast(Report) FINAL REPORT Interpreted by: ISSAC TRAN ELLEN, MD 07/05/22 23:33 Patient Name: DEBI VERDUZCO STUDY: CT ABDOMEN AND PELVIS W IV CONTRAST; 07/05/2022 10:55 pm INDICATION: lower abdominal pain . COMPARISON: 08/30/2020 ACCESSION NUMBER(S): [id number] ORDERING CLINICIAN: WILLIAM Islas (more content not included)... Normal [facility] PANEL 2021 Albumin [Mass/Vol] 4.5 g/dL Normal 3.4 - 5.0 [facility] Comment on above: Performed By: #### S ALIC #### [address] [address] ALP [Catalytic activity/Vol] 78 U/L Normal 33 - 110 [facility] Comment on above: Performed By: #### S ALIC #### [address] [address] ALT [Catalytic activity/Vol] 17 U/L Normal 7 - 45 [facility] Comment on above: Result Comment: Lynsey ents treated with Sulfasalazine may generate falsely decreased results for ALT. Performed By: #### S ALIC #### [address] [address] Anion gap [Moles/Vol] 10 mmol/L Normal 10 - 20 [facility] Comment on above: Performed By: #### S ALIC #### [address] [address] AST [Catalytic activity/Vol] 16 U/L Normal 9 - 39 [facility] Comment on above: Performed By: #### S ALIC #### [address] [address] Bilirubin [Mass/Vol] 0.3 mg/dL Normal 0.0 - 1.2 [facility] Comment on above: Performed By: #### S ALIC #### [address] [address] Calcium [Mass/Vol] 9.3 mg/dL Normal 8.6 - 10.3 [facility] Comment on above: Performed By: #### S ALIC #### [address] [address] Chloride [Moles/Vol] 104 mmol/L Normal 98 - 107 [facility] Comment on above: Performed By: #### S ALIC #### [address] [address] Creatinine [Mass/Vol] 0.73 mg/dL Normal 0.50 - 1.05 [facility] Comment on above: Performed By: #### S ALIC #### [address] [address] eGFR FEMALE >90 Normal >90 [facility] Comment on above: Result Comment: CALC ULATIONS OF ESTIMATED GFR ARE PERFORMED USING THE 2020 CKD-EPI STUDY REFIT EQUATION WITHOUT THE RACE VARIABLE FOR THE IDMS-TRACEABLE CREATININE METHODS. https://jasn.asnjournals.org/content//ASN.76298 98508 Performed By: #### S ALIC #### [address] [address] Glucose [Mass/Vol] 73 mg/dL Low 74 - 99 [facility] Comment on above: Performed By: #### S ALIC #### [address] [address] HCO3 (Bld) [Moles/Vol] 28 mmol/L Normal 21 - 32 [facility] Comment on above: Performed By: #### S ALIC #### [address] [address] Potassium [Moles/Vol] 3.8 mmol/L Normal 3.5 - 5.3 [facility] Comment on above: Performed By: #### S ALIC #### [address] [address] Protein [Mass/Vol] 6.9 g/dL Normal 6.4 - 8.2 [facility] Comment on above: Performed By: #### S ALIC #### [address] [address] Sodium [Moles/Vol] 138 mmol/L Normal 136 - 145 [facility] Comment on above: Performed By: #### S ALIC #### [address] [address] Urea nitrogen [Mass/Vol] 15 mg/dL Normal 6 - 23 [facility] Comment on above: Performed By: #### S ALIC #### [address] [address] [address] [facility]BDOMEN AND PELVIS W IV CONTRAST Patient Name: DEBI VERDUZCO STUDY: CT ABDOMEN AND PELVIS W IV CONTRAST; 07/05/2022 10:55 pm INDICATION: lower abdominal pain . COMPARISON: 08/30/2020 ACCESSION NUMBER(S): [id number] ORDERING CLINICIAN: WILLIAM CERDA TECHNIQUE: Axial CT images of the abdomen and pelvis with coronal and sagittal reconstructed images obtained after intravenous administration of 90 mL Omnipaque 350 FINDINGS: LOWER CHEST: No acute abnormality of the lung bases. BONES: No acute osseous abnormality. ABDOMINAL WALL: Within normal limits. ABDOMEN: LIVER: Within normal limits. BILE DUCTS: No biliary dilatation. GALLBLADDER: No calcified gallstones. No pericholecystic inflammatory changes. PANCREAS: Within normal limits. SPLEEN: Within normal limits. ADRENALS: Within normal limits. KIDNEYS and URETERS: Symmetric renal enhancement. No hydronephrosis or perinephric fluid collection. Nonobstructing bilateral renal calculi measuring less than 2 mm on the right and up to 4 mm on the left. VESSELS: No aortic aneurysm. RETROPERITONEUM: No pathologically enlarged retroperitoneal lymph nodes. PELVIS: REPRODUCTIVE ORGANS: No pelvic masses. Follicular changes in the right ovary. BLADDER: Within normal limits. BOWEL: No dilated bowel. Normal appendix. PERITONEUM: No ascites or free air, no fluid collection. IMPRESSION: No acute abdominal or pelvic process. Electronically signed by: ISSAC TRAN MD Normal [facility] LIPASEon 07-06-2022 Lipase [Catalytic activity/Vol] 32 U/L Normal [facility] Comment on above: Result Comment: Callie puncture immediately after or during the administration of Metamizole may lead to falsely low results. Testing should be performed immediately prior to Metamizole dosing. O-nbumvw-v-benzoquinone imine (metabolite of Acetaminophen) will generate erroneously low results in samples for patients that have taken toxic doses of acetaminophen. Performed By: #### L IPAS ####[place] [address] UA MICROSCOPICon 07-06-2022 BACTERIA 2+ /HPF Abnormal [facility] Comment on above: Performed By: #### U AMIC #### [place] [address] Mucus Ql (Urine sed) 1+ /LPF Normal [facility] Comment on above: Performed By: #### U AMIC #### [place] [address] RBC 1 /HPF Normal 0-5 [facility] Comment on above: Performed By: #### U AMIC #### [place] [address] SQUAMOUS EPITH. CELLS 10 /HPF Normal [facility] Comment on above: Performed By: #### U AMIC #### [place] [address] WBC 6 /HPF Abnormal 0-5 [facility] Comment on above: Performed By: #### U AMIC #### [place] [address] URINALYSISon 10-07-2022 Appearance (U) HAZY Normal CLEAR [facility] Comment on above: Performed By: #### U A #### [address] [address] Bilirubin Ql (U) Negative Normal NEGATIVE [facility] Comment on above: Performed By: #### U A #### [address] [address] Hemoglobin Ql (U) Negative [facility] Comment on above: Performed By: #### U A #### [address] [address] Nitrite Ql (U) Negative Normal NEGATIVE [facility] Comment on above: Performed By: #### U A #### [address] [address] Protein Ql (U) Negative Normal NEGATIVE [facility] Comment on above: Performed By: #### U A #### [address] [address] Specific gravity (U) [Rel density] 1.017 Normal 1.005 - 1.035 [facility] Comment on above: Performed By: #### U A #### [address] [address] Urobilinogen (U) [Mass/Vol] mg/dL Normal 0.0 - 1.9 [facility] Comment on above: Performed By: #### U A #### [address] [address] CBC AND DIFFERENTIALon 07-05 Basophils (Bld) [#/Vol] 0.10 10*3/uL Normal 0.00 - 0.10 [facility] Comment on above: Performed By: #### C BCDF #### [address] [address] Basophils/100 WBC (Bld) 1.0 % Normal 0.0 - 2.0 [facility] Comment on above: Performed By: #### C BCDF #### [address] [address] Eosinophils (Bld) [#/Vol] 0.20 10*3/uL Normal 0.00 - 0.70 [facility] Comment on above: Performed By: #### C BCDF #### [address] [address] Eosinophils/100 WBC (Bld) 2.8 % Normal 0.0 - 6.0 [facility] Comment on above: Performed By: #### C BCDF #### [address] [address] Erythrocyte distribution width (RBC) [Ratio] 12.9 % Normal 11.5 - 14.5 [facility] Comment on above: Performed By: #### C BCDF #### [address] [address] Hematocrit (Bld) [Volume fraction] 38.9 % Normal 36.0 - 46.0 [facility] Comment on above: Performed By: #### C BCDF #### [address] [address] Hemoglobin (Bld) [Mass/Vol] 13.0 g/dL Normal 12.0 - 16.0 [facility] Comment on above: Performed By: #### C BCDF #### [address] [address] Lymphocytes (Bld) [#/Vol] 2.80 10*3/uL Normal 1.20 - 4.80 [facility] Comment on above: Performed By: #### C BCDF #### [address] [address] Lymphocytes/100 WBC (Bld) 36.4 % Normal 13.0 - 44.0 [facility] Comment on above: Performed By: #### C BCDF #### [address] [address] MCHC (RBC) [Mass/Vol] 33.3 g/dL Normal 32.0 - 36.0 [facility] Comment on above: Performed By: #### C BCDF #### [address] [address] MCV (RBC) [Entitic vol] 85 fL Normal 80 - 100 [facility] Comment on above: Performed By: #### C BCDF #### [address] [address] [address] Monocytes (Bld) [#/Vol] 0.70 10*3/uL Normal 0.10 - 1.00 [facility] Comment on above: Performed By: #### C BCDF #### [address] [address] Monocytes/100 WBC (Bld) 9.2 % Normal 2.0 - 10.0 [facility] Comment on above: Performed By: #### C BCDF #### [address] [address] Neutrophils (Bld) [#/Vol] 3.90 10*3/uL Normal 1.20 - 7.70 [facility] Comment on above: Result Comment: Perc ent differential counts (%) should be interpreted in the context of the absolute cell counts (cells/L). Performed By: #### C BCDF #### [address] [address] Neutrophils/100 WBC (Bld) 50.6 % Normal 40.0 - 80.0 [facility] Comment on above: Performed By: #### C BCDF #### [address] [address] Platelets (Bld) [#/Vol] 196 10*3/uL Normal 150 - 450 [facility] Comment on above: Performed By: #### C BCDF #### [address] [address] RBC 4.58 x10E12/L Normal 4.00 - 5.20 [facility] Comment on above: Performed By: #### C BCDF #### [address] [address] WBC (Bld) [#/Vol] 7.7 10*3/uL Normal 4.4 - 11.3 [facility] Comment on above: Performed By: #### C BCDF #### [address] [address] [address] Abdomen and Pelvis with I V Contraston 07-05-2022 CT Abdomen and Pelvis W contrast IV Please click on the link to view the study images Normal [facility] [address] Work Phone: [phone] CT Abdomen and Pelvis W contrast IV Normal [facility] [address] Work Phone: [phone] Complete Blood Count + Diffe thuan 07-05-2022 Basophils/100 WBC (Bld) 1.0 % 0.0 - 2.0 [facility] [address] Work Phone: [phone] Erythrocyte distribution width (RBC) [Ratio] 12.9 % See Below [facility] [address] Work Phone: [phone] Comment on above: Reference Range: 11. 5 - 14.5 Hematocrit (Bld) [Volume fraction] 38.9 % See Below [facility] [address] Work Phone: [phone] Comment on above: Reference Range: 36. 0 - 46.0 Hemoglobin (Bld) [Mass/Vol] 13.0 g/dL See Below [facility] [address] Work Phone: [phone] Comment on above: Reference Range: 12. 0 - 16.0 Lymphocytes/100 WBC (Bld) 36.4 % See Below [facility] [address] Work Phone: [phone] Comment on above: Reference Range: 13. 0 - 44.0 MCHC (RBC) [Mass/Vol] 33.3 g/dL See Below [facility] [address] Work Phone: [phone] Comment on above: Reference Range: 32. 0 - 36.0 MCV (RBC) [Entitic vol] 85 fL 80 - 100 [facility] [address] Work Phone: [phone] Monocytes/100 WBC (Bld) 9.2 % 2.0 - 10.0 [facility] [address] Work Phone: [phone] Neutrophils/100 WBC (Bld) 50.6 % See Below [facility] [address] Work Phone: [phone] Comment on above: Reference Range: 40. 0 - 80.0 Platelets (Bld) [#/Vol] 196 10*3/uL 150 - 450 [facility] [address] Work Phone: [phone] RBC (Bld) [#/Vol] 4.58 {x10E12/L} See Below [facility] [address] Work Phone: [phone] Comment on above: Reference Range: 4.0 0 - 5.20 WBC (Bld) [#/Vol] 7.7 10*3/uL 4.4 - 11.3 [facility] [address] Work Phone: [phone] Complete Blood Count + Differential 0.10 {x10E9/L} See Below [facility] [address] Work Phone: [phone] Comment on above: Reference Range: 0.0 0 - 0.10 Complete Blood Count + Differential 0.20 {x10E9/L} See Below [facility] [address] Work Phone: [phone] Comment on above: Reference Range: 0.0 0 - 0.70 Complete Blood Count + Differential 0.70 {x10E9/L} See Below [facility] [address] Work Phone: [phone] Comment on above: Reference Range: 0.1 0 - 1.00 Complete Blood Count + Differential 2.80 {x10E9/L} See Below [facility] [address] Work Phone: [phone] Comment on above: Reference Range: 1.2 0 - 4.80 Complete Blood Count + Differential 3.90 {x10E9/L} See Below [facility] [address] Work Phone: [phone] Comment on above: Reference Range: 1.2 0 - 7.70 Percent differential counts (%) should be interpreted in the context of the absolute cell counts (cells/L). Complete Blood Count + Differential 2.8 % 0.0 - 6.0 [facility] [address] Work Phone: [phone] HCG,URINEon 07-05-2022 Beta HCG ( test) Ql (U) Negative Normal Negative [facility] Comment on above: Performed By: #### H CGU ####[facility] [place] [address] Laboratory - Chemistry and C hemistry - challengeon 07-05-2022 Albumin BCP dye [Mass/Vol] 4.5 g/dL 3.4 - 5.0 [facility] [address] Work Phone: [phone] ALP [Catalytic activity/Vol] 78 U/L 33 - 110 [facility] [address] Work Phone: [phone] ALT With P-5'-P [Catalytic activity/Vol] 17 U/L 7 - 45 [facility] [employer] Work Phone: [phone] Comment on above: Patients treated wit h Sulfasalazine may generate falsely decreased results for ALT. Anion gap [Moles/Vol] 10 mmol/L 10 - 20 [facility] [address] Work Phone: [phone] AST With P-5'-P [Catalytic activity/Vol] 16 U/L 9 - 39 [facility] [address] Work Phone: [phone] Bilirubin [Mass/Vol] 0.3 mg/dL 0.0 - 1.2 [facility] [address] Work Phone: [phone] Calcium [Mass/Vol] 9.3 mg/dL 8.6 - 10.3 [facility] [address] Work Phone: [phone] Chloride [Moles/Vol] 104 mmol/L 98 - 107 [facility] [address] Work Phone: [phone] CO2 [Moles/Vol] 28 mmol/L 21 - 32 [facility] [address] Work Phone: [phone] Creatinine [Mass/Vol] 0.73 mg/dL See Below [facility] [address] Work Phone: [phone] Comment on above: Reference Range: 0.5 0 - 1.05 Glucose [Mass/Vol] 73 mg/dL below low threshold 74 - 99 [facility] [employer] Work Phone: [phone] Potassium [Moles/Vol] 3.8 mmol/L 3.5 - 5.3 [facility] [employer] [employer] Work Phone: [phone] Protein [Mass/Vol] 6.9 g/dL 6.4 - 8.2 [facility] [facility] [employer] Work Phone: [phone] Sodium [Moles/Vol] 138 mmol/L 136 - 145 [facility] [employer] [employer] Work Phone: [phone] Urea nitrogen [Mass/Vol] 15 mg/dL 6 - 23 [facility] [facility] [employer] Work Phone: [phone] Lipase, Serumon 07-05-2022 Lipase [Catalytic activity/Vol] 32 U/L 9 - 82 [facility] [employer] Work Phone: Comment on above: Venipuncture immedia tely after or during the administration of Metamizole may lead to falsely low results. Testing should be performed immediately prior to Metamizole dosing. I-srfdfw-c-benzoquinone imine (metabolite of Acetaminophen) will generate erroneously low results in samples for patients that have taken toxic doses of acetaminophen. No Panel Informationon 07-05 >90 >90 [facility] [employer] Work Phone: Comment on above: CALCULATIONS OF NILSON MATED GFR ARE PERFORMED USING THE 2020 CKD-EPI STUDY REFIT EQUATION WITHOUT THE RACE VARIABLE FOR THE IDMS-TRACEABLE CREATININE METHODS.https://jasn.asnjournals.org/content///A .2107580161 Provider Note - ED v3on 10-0 Provider Note - ED v3 Provider Note: Chart Review: ED NOTES ED NOTES: History of Present Illness: 22-year-old female presents with concern for abdominal pain. States is been intermittent over the past 2 years. States that she is since she delivered her child vaginally 2 years ago she has pain during sex as well as pain after sex. 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 Had a transvaginal ultrasound yesterday and does not know the results. States that the pain is umbilical and radiating into her lower abdomen. Sharp in nature. Denies any nausea, vomiting, vaginal bleeding or discharge. Denies any urinary symptoms. Last menstrual period 3 months ago however she did have the Depo at that time. Past Medical History: Kidney stones Past surgical History: None Family history: Reviewed and not pertinent to complaint Social history: Denies any drugs, alcohol, tobacco abuse. __ REVIEW OF SYSTEMS: Pertinent negatives and positives noted in the HPI. Otherwise, a complete review of system was negative. __ PHYSICAL EXAM: Appearance: Alert, oriented , cooperative, in no acute distress. Skin: Intact, dry skin, no lesions, rash, petechiae or purpura. Eyes: PERRLA, EOMs intact, Conjunctiva pink with no redness or exudates. HENT: Normocephalic, atraumatic. Nares patent. No intraoral lesions. Neck: Supple, without meningismus. Trachea at midline. No lymphadenopathy. Pulmonary: Clear bilaterally with good chest wall excursion. No rales, rhonchi or wheezing. No accessory muscle use or stridor. Cardiac: Regular rate and rhythm, no rubs, murmurs, or gallops. Abdomen: Abdomen is soft, nontender, and nondistended. No palpable organomegaly. No rebound or guarding. No CVA tenderness. Nonsurgical abdomen Genitourinary: Exam deferred. Musculoskeletal: Full range of motion. Pulses full and equal. No cyanosis, clubbing, or edema. Psychiatric: Appropriate mood and affect. HISTORY OF PRESENTING ILLNESS DEBI is a 22 year old Female and was seen by me at 05-Jul-2022 21:33 for a chief complaint of abdominal pain (pt c/o bilateral lower abd pain x 4 hours, states she usually has this type of pain after intercourse, but today started out of nowhere. just had ultrasounds at her OB yesterday.)(1). Triage Information: Most recent Vital Sign Value Date Temp (F): 97.4 07-05-2022 21:35 Temp (C): 36.3 07-05-2022 21:35 Heart Rate (beats/min): 83 07-05-2022 21:35 Respirations (breaths/min): 16 07-05-2022 21:35 SpO2 (%): 97 07-05-2022 21:35 BP Systolic (mm Hg): 115 07-05-2022 21:35 BP Diastolic (mm Hg): 77 07-05-2022 21:35 PAST MEDICAL HISTORY ALLERGIES/INTOLERANCES: No Known Allergies HEALTH HISTORY: No documented data. OUTPATIENT MEDICATIONS: Home Medications Review Status for Reconciliation: Complete Med Status: Patient Currently Takes Medications Drug Name: Lexapro 20 mg oral tablet Instructions: 1 tab(s) orally once a day SIGNIFICANT EVENTS: Past Medical History Description:kidney stones CRITICAL CARE RESULTS: Recent Lab Results: I have reviewed these laboratory results: Complete Blood Count + Differential 05-Jul-2022 21:47:00 ResultValue White Blood Cell Count 7.7 Red Blood Cell Count 4.58 HGB 13.0 HCT 38.9 MCV 85 MCHC 33.3 PLT 196 RDW-CV 12.9 Neutrophil % 50.6 Lymphocyte % 36.4 Monocyte % 9.2 Eosinophil % 2.8 Basophil % 1.0 Neutrophil Count 3.90 Lymphocyte Count 2.80 Monocyte Count 0.70 Eosinophil Count 0.20 Basophil Count 0.10 Comprehensive Metabolic Panel 05-Jul-2022 21:47:00 ResultValue Glucose, Serum 73 L NA 138 K 3.8 CL 104 Bicarbonate, Serum 28 Anion Gap, Serum 10 BUN 15 CREAT 0.73 GFR Female >90 Calcium, Serum 9.3 ALB 4.5 ALKP 78 T Pro 6.9 T Bili 0.3 Alanine Aminotransferase, Serum 17 Aspartate Transaminase, Serum 16 Urine Test 05-Jul-2022 21:47:00 ResultValue HCG, Urine NEGATIVE Urinalysis 05-Jul-2022 21:47:00 ResultValue Color, Urine Yellow Reference Range: STRAW,YELLOW Appearance, Urine HAZY Specific [place], Urine 1.017 pH, Urine 7.0 Protein, Urine NEGATIVE Glucose, Urine NEGATIVE Blood, Urine NEGATIVE Ketones, Urine NEGATIVE Bilirubin, Urine NEGATIVE Urobilinogen, Urine <2.0 Nitrite, Urine Negative Leukocyte Esterase, Urine MODERATE(2+) A Urinalysis, Microscopic 05-Jul-2022 21:47:00 ResultValue White Cells 6 A Red Blood Cells 1 Epithelial Cells, Squamous 10 Bacteria, Urine 2+ A Mucous 1+ Lipase, Serum 05-Jul-2022 21:47:00 ResultValue Lipase, Serum 32 Radiology Results: Impression: No acute abdominal or pelvic process. CT Abdomen and Pelvis with IV Contrast [Jul 05 2022 11:35PM] VITAL SIGNS: T PRBP SpO2O2(LPM) %FiO2 Method 05-Jul-2022 21:35:[id number]/ (more content not included)... Normal [facility] Risk Screen - Adult Emergenc yon 07-05-2022 Risk Screen - Adult Emergency Preferred Language: Preferred Language: Preferred Language for Discussing Health Care (patient/designee)Ameya zuniga Patient Preferred Pharmacy: Patient Preferred Pharmacy Statement: I have reviewed and updated the patient's preferred pharmacy selection for today's visit. Advanced Directives: Advance Directive/DNRno Family Violence Adult: Abuse Screen: Are you or have you been threatened or abused physically, emotionally, or sexually by anyoneno Learning Assessment (Patient): Learning Assessment (Patient): Patient is Able to be Assessed for Learningyes Factors Influencing Readiness to Learnpain Factors that Impact Ability to Learnnone Devices/Methods Used to Communicatenone Learning Preferencesaudio Cultural Considerationsnone Developmental Considerationsnone Moravian Considerationsnone Learning Assessment (Other Learner): Learning Assessment (Other Learner): Other learner availableno Pressure Injury/TB/Substance: Pressure Injury: Pressure Injury Present on Admissionno Do you have a coughno Smoking Statuslight user (uses <10 cig/day, OR <0.5 ppd, OR 1 can/pouch loose leaf tobacco per week, OR <0.5 vape pods per day) Tobacco Cessation Education (provide if tobacco use within the last 12 mos)not applicable Alcohol Usedenies Drug Usedenies Drug 2 Usedenies Admission Risk Screen: Significant IndicatorsComplete CAGE: CAGE: Is this an [place] a [place] Center [place]/[place] no Electronic Signatures: Jeanette Ferrer (RN) (Signed 05-Jul-2022 21:41) Authored: Preferred Language, Patient Preferred Pharmacy, Advanced Directives, Family Violence Adult, Learning Assessment (Patient), Learning Assessment (Other Learner), Pressure Injury/TB/Substance, Pressure Injury, CAGE Last Updated: 05-Jul-2022 21:41 by Jeanette Ferrer (DONNELL) [facility] Triage - EDon 07-05-2022 Triage - ED Quick Triage: Are You no Have You Given In The Last 6 Weeksno Are You Currently Breastfeedingno Chart Review: ARRIVAL INFORMATION Mode of Arrival: private vehicle CHIEF COMPLAINT DEBI VERDUZCO is a Female patient with a chief complaint of abdominal pain (pt c/o bilateral lower abd pain x 4 hours, states she usually has this type of pain after intercourse, but today started out of nowhere. just had ultrasounds at her OB yesterday.). Triage Date/Time: 05-Jul-2022 21:35 EDA: 3 Pain Rating (0-10): 7 = Severe Pain location: lower abdomen Vital Signs: Temperature: 97.4F ( 36.3C) taken temporal Blood Pressure: 115/77 Mean: Heart Rate: 83 Respiratory Rate: 16 Pulse Oximetry: 97% on room air, no respiratory support. Height: 5 feet 5.00 inches. 165.1 CM Weight: 121.2 pounds. Calculated 55.0 kg. (stated) Calculated BMI (kg/m2): 20.177 Calculated BSA (m2) 1.59 [place] Coma Scale: Best Eye Response: (E4) spontaneous Best Motor Response: (M6) obeys commands Best Verbal Response: (V5) oriented Ferdinand Score: 15 Cough lasting greater than 3 weeks: no Allergies: no Last menstrual period: 04-Apr-2022 [employer]ENDER History: control Patient has homicidal thoughts: no Risk Screens Suicide Risk Screen In the Past Month: Have you wished you were or wished you could go to sleep and not wake up no In the Past Month: Have you had any actual thoughts of killing yourself no In Your Lifetime: Have you ever done anything, started to do anything, or prepared to do anything to end your life no Mccoy Fall Scale Screening Has the patient fallen before (or is the patient in the ED as a result of a fall) has not had a fall Does the patient have an impaired gait does not have impaired gait Is the patient cognitively impaired not cognitively impaired Interventions: Mccoy Fall Interventions: LOW INTERVENTIONS: *patient oriented to surroundings and call system, * patient/family falls education completed and documented, *patients fall status communicated during bedside handoff, *whiteboard updated, *mode of toileting discussed with patient, *bed in low position with brakes locked, *call light in reach, * non-skid footwear TRAVEL HISTORY Travel History Coronavirus Screening: no exposure or symptoms Travel Exposure History: NO travel to International locations in the past 30 days PAIN Pain Scale Used: ROMULO Pain Rating (0-10): 7 = Severe Past Medical History: Past Medical History Reviewedyes Electronic Signatures: Jeanette Ferrer (DONNELL) (Signed 05-Jul-2022 21:40) Entered: Risk Screens, Pain, Travel History, Chart Review, Scores, Past Medical History Authored: Quick Triage, Risk Screens, Pain, Travel History, Chart Review, Scores, Past Medical History Last Updated: 05-Jul-2022 21:40 by Jeanette Ferrer (DONNELL) Normal [facility] Urinalysison 07-05-2022 Color (U) Yellow Normal STRAW,YELLOW [facility] [address] Work Phone: Comment on above: Reference Range: STR AW,YELLOW Performed By: #### U A #### [address] [address] Glucose Ql (U) Negative Normal NEGATIVE [facility] [address] Work Phone: Comment on above: Performed By: #### U A #### [address] [address] Ketones Ql (U) Negative Normal NEGATIVE [facility] [address] Work Phone: Comment on above: Performed By: #### U A #### [address] [address] Leukocyte esterase Test strip Ql (U) MODERATE(2+) Abnormal NEGATIVE [facility] [address] Work Phone: [phone] Comment on above: Performed By: #### U A #### [address] [address] pH (U) 7.0 [pH] Normal 5.0 - 8.0 [facility] [address] Work Phone: [phone] Comment on above: Performed By: #### U A #### [address] [address] Protein (U) [Mass/Vol] Negative NEGATIVE [facility] [address] Work Phone: [phone] RBC (U) [#/Vol] Negative NEGATIVE [facility] [address] Work Phone: [phone] Specific gravity (U) [Rel density] 1.017 1 See Below [facility] [address] Work Phone: [phone] Comment on above: Reference Range: 1.0 05 - 1.035 Urinalysis Negative NEGATIVE [facility] [address] Work Phone: [phone] Urinalysis <2.0 0.0 - 1.9 [facility] [address] Work Phone: [phone] Urinalysis HAZY CLEAR [facility] [address] Work Phone: [phone] Urinalysis, Microscopicon Urinalysis, Microscopic 1+ [facility] [address] Work Phone: [phone] Urinalysis, Microscopic 2+ Abnormal [facility] [address] Work Phone: [phone] Urinalysis, Microscopic 10 {/HPF} [facility] [address] Work Phone: [phone] Urinalysis, Microscopic 1 {/HPF} 0-5 [facility] [address] Work Phone: [phone] Urinalysis, Microscopic 6 {/HPF} Abnormal 0-5 [facility] [address] Work Phone: [phone] Urine Teston 07-05 HCG ( test) Ql (U) Negative Negative [facility] [address] Work Phone: [phone] No Panel Informationon 07-04 Normal [facility] [address] Work Phone: [phone] GC + CHLAMYDIA BY AMPLIFIED DETECTIONon 06-28-2022 CHLAMYDIA TRACH.,AMPLIFIED Negative Normal Negative [facility] Comment on above: Result Comment: The APTIMA Combo 2 assay is FDA-approved for Chlamydia trachomatis and Neisseria gonorrhoeae testing on female endocervical and vaginal swabs, ThinPrep liquid pap samples, male urine samples and urethral swabs. Performance characteristics for Chlamydia trachomatis and Neisseria gonorrhoeae testing on specific bev-HOQ-lzjkkbhq sample types (female urine samples) have been validated by [facility]. This laboratory is certified by CLIA to perform high complexity testing. Samples from all other sites are not validated for this method. Performed By: #### [facility] #### [facility] [address] [place] [address] N.GONORRHEA,AMPLIFIED Negative Normal Negative [facility] Comment on above: Result Comment: The APTIMA Combo 2 assay is FDA-approved for Chlamydia trachomatis and Neisseria gonorrhoeae testing on female endocervical and vaginal swabs, ThinPrep liquid pap samples, male urine samples and urethral swabs. Performance characteristics for Chlamydia trachomatis and Neisseria gonorrhoeae testing on specific ece-NHJ-ugakrfns sample types (female urine samples) have been validated by [facility]. This laboratory is certified by CLIA to perform high complexity testing. Samples from all other sites are not validated for this method. Performed By: #### [facility] #### [facility] [address] [place] [address] GC + CHLAMYDIA BY AMPLIFIED DETECTIONon 06-27-2022 Lab Specimen Source Urine Normal [facility] Comment on above: Performed By: #### [facility] #### [facility] [address] [place] [address] GC + Chlamydia By Amplified Detectionon 06-27-2022 C. trachomatis rRNA YOEL+probe Ql (Unsp spec) Negative Negative [facility] [address] Work Phone: Comment on above: The APTIMA Combo 2 a ssay is FDA-approved for Chlamydia trachomatis and Neisseria gonorrhoeae testing on female endocervical and vaginal swabs, ThinPrep liquid pap samples, male urine samples and urethral swabs. Performance characteristics for Chlamydia trachomatis and Neisseria gonorrhoeae testing on specific yjh-JWK-xumeleeg sample types (female urine samples) have been validated by [facility]. This laboratory is certified by CLIA to perform high complexity testing. Samples from all other sites are not validated for this method. N. gonorrhoeae rRNA YOEL+probe Ql (Unsp spec) Negative Negative [facility] [address] Work Phone: Comment on above: SOURCE: Urine The AP WILL Combo 2 assay is FDA-approved for Chlamydia trachomatis and Neisseria gonorrhoeae testing on female endocervical and vaginal swabs, ThinPrep liquid pap samples, male urine samples and urethral swabs. Performance characteristics for Chlamydia trachomatis and Neisseria gonorrhoeae testing on specific urg-SGK-ofhurhmo sample types (female urine samples) have been validated by [facility]. This laboratory is certified by CLIA to perform high complexity testing. Samples from all other sites are not validated for this method. 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 : pelvic pain Follow-up visit in 2 weeks Outpatient Follow-up Status: Hold For - Scheduling Requested for: [id number] GC + Chlamydia By Amplified Detection; Status:In Progress - Specimen/Data Collected; Done: [id number] Provider Impressions 1)Pelvic pain-unclear etiology and weird below the umbilicus. Discussed would be Related to chlamydial infection versus scar tissue versus endometriosis based upon symptomatology given the fact that no other GI symptoms are present. Patient on control was using about fertility in the near future. Discussed that I cannot exclude pelvic pathology without getting ultrasound. Shared decision was to screen for gonorrhea and chlamydia as well as get a transvaginal ultrasound to evaluate for further causes. Further management to follow. Discussed if no cycle by 3 months after stopping the Depo would recommend progesterone withdrawal. All questions answered 2) screening for STDs-please see #1 but we will get a repeat gonorrhea and chlamydia given prior history Chief Complaint PT IS HERE TODAY FOR PAIN DURING INTERCOURSE. STATES IT HAS BEEN GOING ON SINCE HER DELIVERY IN 2019. STATES THE PAIN FEELS LIKE A DULL STABBING PAIN THAT IS UNDER HER BELLY BUTTON. STATES THE PAIN IS GETTING WORSE. HAS BEEN DOING THE KEGELS AND IT DOES NOT SEEM BE WORKING. HAS NOT HAD A PERIOD SINCE GETTING OFF THE DEPO IN MARCH. History of Present Nwcoxmk59-qvsn-nnd presents for pain during intimacy. Patient has basically been worse since her delivery back in 2019. Patient doing Kegel's and notes no improvement. Patient has not had any insertional masturbation she noticed that the pain is there. Patient notes with intimacy no matter how rough gentle or what ever position she has pain underneath her bellybutton afterwards. Patient notes some insertional pain. Patient notes no trouble with bowel or bladder. Patient notes she had chlamydia when she was with her significant other previously but has not had a repeat test. Patient has no other acute concerns. patient considering fertility in the future, patient stopped her Depo 2 months ago has not yet had a cycle Review of Systems Constitutional: No fevers, chills Eye:no vision changes Respiratory: no SOB Cardiovascular: no chest pain Gastrointestinal: See HPI Genitourinary:no dysuria Gynecology: See HPI Active Problems Problems Abnormal uterine bleeding (AUB) (626.9) (N93.9) Anxiety (300.00) (F41.9) 03/07/22: GAD7: severe anxiety control counseling (V25.09) (Z30.09) BMI less than 19,adult (V85.0) (Z68.1) Chlamydia (079.98) (A74.9) 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.23) (F32.2) 03/07/22 PHQ9 Severe depression Encounter for initial prescription of implantable subdermal contraceptive (V25.02) (Z30.017) Encounter for Nexplanon removal (V25.43) (Z30.46) Encounter to establish care (V65.8) (Z76.89) Negative test (V72.41) (Z32.02) Pelvic pain (R10.2) Positive depression screening (796.4) (Z13.31) exam (V24.2) (Z39.2) Screening for STDs (sexually transmitted diseases) (V74.5) (Z11.3) Past Medical History Problems History of Chlamydia (079.98) (A74.9) History of hematuria (V13.09) (Z87.448) Resolved Date: 22 Oct 2019 History of (V13.29) 11/23/2019-39 WEEKS, FEMALE, #6 12OZ, VAGINAL History of Menarche (V21.8) AGE 11 Surgical History Problems History of Tonsillectomy Family History Mother Family history of depression (V17.0) (Z81.8) Sibling Family history of Healthy adult Maternal Grandmother Family history of malignant neoplasm of colon (V16.0) (Z80.0) Maternal Grandfather Family history of malignant neoplasm of colon (V16.0) (Z80.0) Social History Problems Consumes caffeine from carbonated beverages (V49.89) (Z78.9) Current every day use of combustion-free vaporization device (V69.8) (Z72.89) Does not use illicit drugs (V49.89) (Z78.9) Electronic cigarette use (305.1) (Z78.9) No advance directives (V49.89) (Z78.9) Occasional alcohol use Sexually active Allergies Medication No Known Drug Allergies Recorded By: Rachel Humphries; 09/21/2019 2:14:11 PM Current Meds Medication NameInstruction Escitalopram Oxalate 20 MG Oral TabletTAKE ONE TABLET BY MOUTH ONE TIME DAILY Vitals Vital Signs Recorded: 27Jun2022 02:19PM Feophblm484 Cgdhjmxoh95 Height5 ft 5 in Rcflrj537 lb (more content not included)... [facility] F or[facility])on 04-04-2022 Follow-up visit Diagnosis/Problems Assessed Anxiety (300.00) (F41.9) 03/07/22: GAD7: severe anxiety Increase Lexapro to 10 mg daily 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.23) (F32.2) 03/07/22 PHQ9 Severe depression Increase Lexapro to 10 mg daily Orders Anxiety Renew: Escitalopram Oxalate 10 MG Oral Tablet; TAKE 1 TABLET DAILY Rx By: Radha Cary; Dispense: 30 Days ; #:30 Tablet; Refill: 2;For: Anxiety; SURJIT = N; Verified Transmission to [facility]; Last Updated By: RudyFreshGrade; 04/04/2022 3:21:16 PM Patient Discussion/Summary follow up in 6 months. Chief Complaint Pt presents for med check after starting Lexapro last month. States she feels free but would like to have dose slightly increased. Taking it at 2100 but is still having trouble sleeping. History of Present IllnessShelby returns for medication check. Anxiety/depression: She reports she is doing well. doing well. She would like to see if the dose can be increased as she feels it is working just thinks it can be better. States, my boyfriend has noticed a difference in my mood. Scores and Scales [place] Suicide Severity Rating Scale [id number] 09:24PM (Past Month) Have you wished you were or wished you could go to sleep and not wake up?Yes-Low Risk (Past Month) Have you actually had any thoughts of killing yourself?Yes-Low Risk (Past Month) Have you been thinking about how you might kill yourself?No (Past Month) Have you had these thoughts and had some intention of acting on them?No (Past Month) Have you started to work out or worked out the details of how to kill yourself?No (Lifetime) Have you ever done anything, started to do anything, or prepared to do anything to end your life?No If Yes, Was this in the last 3 months?No Review of Systems Psychiatric: feelings of anxiety and feelings of depression, but no mood changes, no sleep disturbances, no substance use, no panic attacks and no suicidal thoughts. Active Problems Problems Abnormal uterine bleeding (AUB) (626.9) (N93.9) Anxiety (300.00) (F41.9) 03/07/22: GAD7: severe anxiety control counseling (V25.09) (Z30.09) BMI less than 19,adult (V85.0) (Z68.1) Chlamydia (079.98) (A74.9) 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.23) (F32.2) 03/07/22 PHQ9 Severe depression Encounter for initial prescription of implantable subdermal contraceptive (V25.02) (Z30.017) Encounter for Nexplanon removal (V25.43) (Z30.46) Encounter to establish care (V65.8) (Z76.89) Negative test (V72.41) (Z32.02) Pelvic pain (R10.2) Positive depression screening (796.4) (Z13.31) exam (V24.2) (Z39.2) Screening for STDs (sexually transmitted diseases) (V74.5) (Z11.3) Past Medical History Problems History of Chlamydia (079.98) (A74.9) History of hematuria (V13.09) (Z87.448) Resolved Date: 22 Oct 2019 History of (V13.29) 11/23/2019-39 WEEKS, FEMALE, #6 12OZ, VAGINAL History of Menarche (V21.8) AGE 11 Surgical History Problems History of Tonsillectomy Family History Mother Family history of depression (V17.0) (Z81.8) Sibling Family history of Healthy adult Maternal Grandmother Family history of malignant neoplasm of colon (V16.0) (Z80.0) Maternal Grandfather Family history of malignant neoplasm of colon (V16.0) (Z80.0) Social History Problems Consumes caffeine from carbonated beverages (V49.89) (Z78.9) Current every day use of combustion-free vaporization device (V69.8) (Z72.89) Does not use illicit drugs (V49.89) (Z78.9) Electronic cigarette use (305.1) (Z78.9) No advance directives (V49.89) (Z78.9) Occasional alcohol use Sexually active Current Meds Medication NameInstruction Escitalopram Oxalate 5 MG Oral TabletTAKE 1 TABLET DAILY. Allergies Medication No Known Drug Allergies Recorded By: Rahcel Humphries; 09/21/2019 2:14:11 PM Vitals Vital Signs Recorded: 10Lwn4846 02:56PM Heart Rate85 Jyvfnkzp84, LUE, Sitting Qbsgjbelp60, LUE, Sitting Height5 ft 5 in Suuxzg606 lb 9 oz BMI Uxqkwrkfos26.56 kg/m2 BSA Calculated1.58 Tobacco Usea) Yes O2 Yiqttlnbsn42 Physical Exam Constitutional - Well developed, well nourished, well hydrated and no acute distress. Vital signs reviewed. Pulmonary - normal respiratory effort. Lungs are clear without rales, rhonchi, or wheezing. Cardiovascular - Regular rate and rhythm. No significant murmur. Musculoskeletal - Gait and station: Normal. Psychiatric - Mood and affect: Normal. Judgment and insight: Intact. Alert and oriented x 3. Recent and remote memory: Normal. Signatures Electronically signed by : ROSCOE Caballero; Apr 08 2022 6:00PM EST (Author) Normal [employer] Tobacco Screening.on 022 Tobacco use status CPHS a) Yes -[facility] 205 DO Work Phone: [place] Suicide Severity Ra ting Scaleon 03-07-2022 [place] Suicide Severity Rating Scale Yes-Low Risk [facility] Work Phone: [place] Suicide Severity Rating Scale No [facility] Work Phone: Office Visit (Primary Care F orms)on 03-07-2022 Follow-up visit Diagnosis/Problems Assessed Anxiety (300.00) (F41.9) 03/07/22: GAD7: 19/21 severe anxiety Start Lexapro 5 mg daily Referral to counseling 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.23) (F32.2) 03/07/22 PHQ9 Severe depression Start Lexapro 5 mg daily Referral to counseling Encounter to establish care (V65.8) (Z76.89) BMI less than 19,adult (V85.0) (Z68.1) Positive depression screening (796.4) (Z13.31) Orders Anxiety Start: Escitalopram Oxalate 5 MG Oral Tablet; TAKE 1 TABLET DAILY Rx By: Radha Cary; Dispense: 30 Days ; #:30 Tablet; Refill: 0;For: Anxiety; SURJIT = N; Verified Transmission to [facility] #[facility]; Last Updated By: Rudy [employer]; 03/07/2022 3:41:34 PM Adult Psychology Referral Evaluation and Treatment Evaluate AND Treat Status: Hold For - Scheduling Requested for: 07Mar2022 Ordered;For: Anxiety; Ordered By: Radha Cary Performed: Order Comments: Counseling in [place] Due: [id number] Positive depression screening [place] Suicide Severity Rating Scale; Status:Active; Requested for:07Mar2022; Perform:In Office; Due:12Mar2022;Ordered; For:Positive depression screening; Ordered By:Radha Cary; Patient Discussion/Summary Follow up in 1 month for medication check. DIscussed GENESIGHT Testing. We discussed when to seek urgent/emergent help for worsening symptoms of depression. She verbalized understanding. We will trial SSRI and follow up in 1 month. May also consider GENESIGHT testing. Chief Complaint Pt presents to establish new PCP; c/o anxiety; has previously been diagnosed with PTSD and severe anxiety, but get extreme episodes of anxiety; has been on Zoloft in the past, but made her feel like a zombie. History of Present Thpnlht71 year old female here to establish care. Has concerns of worsening depression/anxiety. anxiety/depression: has tried Zoloft in the past after having child due to PPD, without symptom control. Reports it made her feel sleepy. She is feeling more stressed/irritable. Has a 2 year old daughter and recently re-established relationship with her child's father. She feels like she is having severe mood swings. She reports family history of mood disorders in her mother (bipolar). She denies suicidal ideations, or homicidal ideations. She does not have a plan of suicide. She states, I'm not going to do that, I have a daughter who needs me. Health maintenance: Pap: Up to date Social Hx: Tobacco: Vapes nicotine pods. Previous smoker. ETOH: socially Drugs: Denies Caffeine: 1 cup day Scores and Scales PHQ-9 Depression Scale: 1. Little interest or pleasure in doing things - nearly every day 2. Feeling down, depressed or hopeless - nearly every day 3. Trouble falling asleep or sleeping too much - nearly every day 4. Feeling tired or having little energy - nearly every day 5. Poor appetite or overeating - several days 6. Feeling bad about self or failure or letting others down - more than half the days 7. Trouble concentrating on things - more than half the days 8. Moving / speaking slowly or fidgety / restless - more than half the days 9. Thought would be better off or hurting self - more than half the days Total Score: 21/27 Severity of depression is severe. How difficult have these problems made it for you to do your work, take care of things at home, or get along with people? Extremely difficult. Generalized Anxiety Disorder 7 - Item Scale (STEPHANIE-7): Over the last 2 weeks, how often have you been bothered by the following problems? Feeling nervous, anxious or on edge: Nearly every day = 3 Not being able to stop or control worrying: Nearly every day = 3 Worrying too much about different things: Nearly every day = 3 Trouble relaxing: More than half the days = 2 Being so restless that it is hard to sit still: More than half the days = 2 Becoming easily annoyed or irritable: Nearly every day = 3 Feeling afraid as if something awful might happen: Nearly every day = 3 Total score: 19. severe anxiety. [place] Suicide Severity Rating Scale [id number] 09:24PM (Past Month) Have you wished you were or wished you could go to sleep and not wake up?Yes-Low Risk (Past Month) Have you actually had any thoughts of killing yourself?Yes-Low Risk (Past Month) Have you been thinking about how you might kill yourself?No (Past Month) Have you had these thoughts and had some intention of acting on them?No (Past Month) Have you started to work out or worked out the details of how to kill yourself?No (Lifetime) Have you ever done anything, started to do anything, or prepared to do anything to end your life?No If Yes, Was this in the last 3 months?No Review of Systems Constitutional: not feeling tired. Cardiovascular: no chest pain, no palpitations, no lower extremity edema and no chest pressure. Respiratory: no dyspnea with exertion, no dyspnea at rest and no chronic cough. Gas (more content not included)... Normal [facility] Tobacco Screening.on 022 Fall risk assessment a) No falls within the last year [facility] Phone: Tobacco use status CPHS a) Yes [facility]elli Phone: Cult, Genitalon 01-19-2022 Bacteria identified Aer cx Nom (Genital specimen) [facility] [address] Work Phone: GC + Chlamydia By Amplified Detectionon 01-19-2022 C. trachomatis rRNA YOEL+probe Ql (Unsp spec) Positive Abnormal Negative [facility] [address] Work Phone: Comment on above: The APTIMA Combo 2 a ssay is FDA-approved for Chlamydia trachomatis and Neisseria gonorrhoeae testing on female endocervical and vaginal swabs, ThinPrep liquid pap samples, male urine samples and urethral swabs. Performance characteristics for Chlamydia trachomatis and Neisseria gonorrhoeae testing on specific ybj-NHM-riryeshb sample types (female urine samples) have been validated by [facility]. This laboratory is certified by CLIA to perform high complexity testing. Samples from all other sites are not validated for this method. N. gonorrhoeae rRNA YOEL+probe Ql (Unsp spec) Negative Negative [facility] [address] Work Phone: Comment on above: SOURCE: Urine The AP WILL Combo 2 assay is FDA-approved for Chlamydia trachomatis and Neisseria gonorrhoeae testing on female endocervical and vaginal swabs, ThinPrep liquid pap samples, male urine samples and urethral swabs. Performance characteristics for Chlamydia trachomatis and Neisseria gonorrhoeae testing on specific jnb-ZMH-rmdsdtmc sample types (female urine samples) have been validated by [facility]. This laboratory is certified by CLIA to perform high complexity testing. Samples from all other sites are not validated for this method. IO HCG, Urine Test on 01-19-2022 HCG ( test) Ql (U) Negative Normal [facility] [address] Work Phone: [phone] LMPon 01-19-2022 Last menstrual period start date 10Jan2022 [facility] [address] Work Phone: [phone] [employer] - Office Visiton 12-30 [facility] [employer] - Office Visit Diagnoses/Problems Assessed Abnormal uterine bleeding (AUB) (626.9) (N93.9) Pelvic pain (R10.2) Screening for STDs (sexually transmitted diseases) (V74.5) (Z11.3) Negative test (V72.41) (Z32.02) Orders Administered: Depo-Provera 150 MG/ML Intramuscular Suspension (MedroxyPROGESTERone Acetate) IO HCG, Urine Test; Status:Complete; Done: 19Jan2022 01:35PM Cult, Genital; Status:In Progress - Specimen/Data Collected; Done: 19Jan2022 Site : Vaginal GC + Chlamydia By Amplified Detection; Status:In Progress - Specimen/Data Collected; Done: 19Jan2022 Provider Impressions 1) abnormal uterine bleeding-plan to initiate control at this point time to help improve her cycle length and consistency. Shared decision was for Depo because she done it previously before she had on the Nexplanon and she did really well with it. Depo dose given today for the bleeding. Plan to follow-up and see how control cycles as well as helps with #2 2) pelvic pain-unclear etiology. May be a little bit 11 her tenderness may be dysmenorrhea may be STI. Genital culture and gonorrhea and Chlamydia ordered to screen for infection causes. We will see how control helps. Discussed some vulvar hygiene and soaps. All questions answered Chief Complaint PT IS HERE TODAY FOR HAS HEAVY, IRREGULAR PERIODS, PASSING CLOTS X'S 5 MONTHS. STATES HER PERIOD WILL LAST 2-3 DAYS TO 10-12 DAYS AND WILL EITHER COME A WEEK EARLY OF A WEEK LATE. STATES HAS STABBING PELVIC PAIN DURING INTERCOURSE AND TAMPONS FEEL UNCOMFORTABLE. X'S SINCE SHE GAVE IN 2019. LMP: 01/10/2022 History of Present Jsvmqeo54-jtar-zue presents to discuss painful intimacy as well as worsening periods. Patient was last 6 7 months she was heavier longer clotty her cycles. Additionally patient notes some pain with insertion and deep with intimacy. Patient notes occasionally has burning with sex. Patient notes tampons been more uncomfortable. Patient has had a remote history of STD. Patient has no other acute concerns Review of Systems Constitutional: No fevers, chills Eye:no vision changes Respiratory: no SOB Cardiovascular: no chest pain Breast: No lump/mass or discharge Gastrointestinal: No nausea, vomiting, diarrhea, constipation. + abdominal pain Genitourinary:no dysuria Gynecology: See HPI Endocrine: No heat or cold intolerance Musculoskeletal: No decreased ROM Skin:No rash Neurologic: No numbness tingling Psychiatric: Anxiety All other: all other systems reviewed and negative for complaint Active Problems Problems Anxiety and depression (300.00,311) (F41.9,F32.A) control counseling (V25.09) (Z30.09) Encounter for initial prescription of implantable subdermal contraceptive (V25.02) (Z30.017) Encounter for Nexplanon removal (V25.43) (Z30.46) Negative test (V72.41) (Z32.02) exam (V24.2) (Z39.2) Past Medical History Problems History of Chlamydia (079.98) (A74.9) History of hematuria (V13.09) (Z87.448) Resolved Date: 22 Oct 2019 History of (V13.29) 11/23/2019-39 WEEKS, FEMALE, #6 12OZ, VAGINAL History of Menarche (V21.8) AGE 11 Surgical History Problems History of Tonsillectomy Family History Mother Family history of depression (V17.0) (Z81.8) Sibling Family history of Healthy adult Maternal Grandmother Family history of malignant neoplasm of colon (V16.0) (Z80.0) Maternal Grandfather Family history of malignant neoplasm of colon (V16.0) (Z80.0) Social History Problems Does not use illicit drugs (V49.89) (Z78.9) Electronic cigarette use (305.1) (Z78.9) Occasional alcohol use Sexually active Allergies Medication No Known Drug Allergies Recorded By: Rachel Humphries; 09/21/2019 2:14:11 PM Current Meds Medication NameInstruction No Reported Medications Vitals Vital Signs Recorded: 19Jan2022 01:08PM Hoxkwdfc979 Oidopnchb53 Height5 ft 5 in Ehqtzh986 lb BMI Xssahzqglh28.64 kg/m2 BSA Calculated1.55 [id number] Physical Exam General: None acute distress Eye: Intraocular movements are intact HEENT: Normocephalic Cardiovascular: Regular rate Respiratory: Respirations are nonlabored Gastrointestinal: Nondistended, soft positive bowel sounds Gynecologic: External genitalia with normal limits. Vagina with thin discharge. No insertional pain. Little bit of pain deep. No bimanual tenderness or axillary masses. Bilateral levator tenderness but no spasm per se Musculoskeletal: Normal range of motion Neurologic: Alert and oriented x3 Psychiatric: Cooperative appropriate mood and affect. 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 No report was sent Normal [facility] Cult, Urineon 10-08-2019 Bacteria identified Cx Nom (U) PATIENT: DEBI VERDUZCO LOCATION: [facility]#: [id number] : 89 AGE: SEX: F ORDERED BY: KEARA MCKENZIESOPATRICIA: URINE COLLECTED: 10/08/19 15:39ANTIBIOTICS AT ELEANOR.: RECEIVED : 10/09/19 01:56SITE: Clean Catch/Voided R E S U L T S URINE CULTURE,BACTERIAL FINAL 10/11/19 17:08 ISOLATE1 : Lactobacillus species >100,000 CFU/ML Abnormal [facility] [address] Work Phone: Metabolic Panelon 09-25-2019 Glucose [Mass/Vol] 85 mg/dL <95 [facility] [address] Work Phone: [phone] Glucose [Mass/Vol] 165 mg/dL <180 [facility] [address] Work Phone: [phone] Glucose [Mass/Vol] 128 mg/dL <155 [facility] [address] Work Phone: [phone] Glucose [Mass/Vol] 101 mg/dL <140 [facility] [address] Work Phone: [phone] Glucose [Mass/Vol] 78 mg/dL 74 - 99 [facility] [address] Work Phone: [phone] Otheron 09-25-2019 SEE BELOW [facility] [address] Work Phone: [phone] Comment on above: Diagnostics with glu cose loading dose of 100 g. Reference values from [place] [employer]. Diabetes Care 2015;38(Suppl.1):S8-S16. RPRon 05-20-2019 Reagin Ab RPR Ql (S) Non-Reactive Normal Non-Reactive [facility] Comment on above: Performed By: #### 2 [id number] #### JESSICA RemHemo [address] [place] [address] C Urineon 05-17-2019 C Urine Final Report: Light growth of Normal skin osvaldo isolated Normal [facility] Comment on above: Performed By: #### 2 [id number] ####JESSICA Microbiology [address] [place] [address] Hep Bs Agon 05-16-2019 Hep Bs Ag Negative Normal Negative [facility] Comment on above: Result Comment: Perf ormed At: [facility] [address] [id number] Justa Longoria PhD Ph:[phone] Performed By: #### 2 [id number] ####JESSICA Send Outs [address] [place] [address] ABO/Rh Echoon 05-15-2019 ABO/Rh E Interp... Positive Normal [facility] Comment on above: Performed By: #### 8 [id number] ####JESSICA [facility] [address] [place] [address] Antibody Screen Cap...on Screen Interp... Negative Normal [facility] Comment on above: Performed By: #### 8 [id number] ####JESSICA [facility] [address] [place] [address] Auto Diffon 05-15-2019 Basophils (Bld) [#/Vol] 0.0 E3/mcL Normal 0.0-0.2 [facility] Comment on above: Order Comment: Order Added by Discern Expert. Performed By: #### 2 [id number] ####JESSICA [address] [place] [address] Basophils/100 WBC (Bld) 0.4 % Normal 0.0-2.0 [facility] Comment on above: Order Comment: Order Added by Discern Expert. Performed By: #### 2 [id number] ####JESSICA [address] [place] [address] Eos Absolute 0.1 E3/mcL Normal 0.0-0.7 [facility] Comment on above: Order Comment: Order Added by Discern Expert. Performed By: #### 2 [id number] ####JESSICA [address] [place] [address] Eosinophils/100 WBC (Bld) 1.1 % Normal 0.0-11.0 [facility] Comment on above: Order Comment: Order Added by Discern Expert. Performed By: #### 2 [id number] ####JESSICA [address] [place] [address] Lymphocytes (Bld) [#/Vol] 1.6 E3/mcL Normal 1.2-3.4 [facility] Comment on above: Order Comment: Order Added by Discern Expert. Performed By: #### 2 [id number] ####JESSICA [address] [place] [address] Lymphocytes/100 WBC (Bld) 21.5 % Normal 20.0-55.0 [facility] Comment on above: Order Comment: Order Added by Discern Expert. Performed By: #### 2 [id number] ####JESSICA [address] [place] [address] [place] Absolute 0.7 E3/mcL Normal 0.0-0.7 [facility] Comment on above: Order Comment: Order Added by Discern Expert. Performed By: #### 2 [id number] ####JESSICA [address] [place] [address] Monocytes/100 WBC (Bld) 9.0 % Normal 0.0-10.0 [facility] Comment on above: Order Comment: Order Added by Discern Expert. Performed By: #### 2 [id number] ####JESSICA [address] [place] [address] Neutro Absolute 5.0 E3/mcL Normal 1.4-6.5 [facility] Comment on above: Order Comment: Order Added by Discern Expert. Performed By: #### 2 [id number] ####JESSICA [address] [place] [address] Neutro Auto 68.0 % Normal 37.0-75.0 [facility] Comment on above: Order Comment: Order Added by Discern Expert. Performed By: #### 2 [id number] ####JESSICA Baio[address] [place] [address] CBC w/ Auto Diffon 9 Erythrocyte distribution width (RBC) [Ratio] 13.1 % Normal 11.5-14.5 [facility] Comment on above: Performed By: #### 2 [id number] ####JESSICA Baio[address] [place] [address] Hematocrit (Bld) [Volume fraction] 41.4 % Normal 36.0-48.0 [facility] Comment on above: Performed By: #### 2 [id number] ####JESSICA Ba[address] [place] [address] Hemoglobin (Bld) [Mass/Vol] 14.2 g/dL Normal 12.0-16.0 [facility] Comment on above: Performed By: #### 2 [id number] ####JESSICA Ba[address] [place] [address] MCH (RBC) [Entitic mass] 29.7 pg Normal 27.0-31.0 [facility] Comment on above: Performed By: #### 2 [id number] ####JESSICA GonzalezPazNzkw5386 [place] [address] MCHC (RBC) [Mass/Vol] 34.3 g/dL Normal 33.0-37.0 [facility] Comment on above: Performed By: #### 2 [id number] ####JESSICA GonzalezWlrQymn5517 [place] [address] MCV (RBC) [Entitic vol] 86.6 fL Normal 78.0-100.0 [facility] Comment on above: Performed By: #### 2 [id number] ####JESSICA GonzalezImqIgob2385 [place] [address] Platelet mean volume (Bld) [Entitic vol] 9.2 fL Normal 7.4-11.0 [facility] Comment on above: Performed By: #### 2 [id number] ####JESSICA Baio[address] [place] [address] Platelets (Bld) [#/Vol] 192 E3/mcL Normal 130-400 [facility] Comment on above: Performed By: #### 2 730014 ####JESSICA GonzalezLiuEulg0909 [place] [address] RBC (Bld) [#/Vol] 4.78 E6/mcL Normal 3.90-5.40 [facility] Comment on above: Performed By: #### 2 810089 ####JESSICA GonzalezGevKtlq8918 [place] [address] WBC (Bld) [#/Vol] 7.3 E3/mcL Normal 3.6-11.0 [facility] Comment on above: Performed By: #### 2 [id number] ####JESSICA GonzalezRifIqkf1665 [place] [address] Chlamydia GC by PCRon 2018 Chlamydia by PCR. Not Detected Normal Not Detected [facility] Comment on above: Result Comment: Xper t CT/NG Assay performance has not been evaluated in patients less than 14 years of age. Performed By: #### 3 [id number] ####JESSICA Misc Micro SubSection, Gonorrhoeae by PCR Not Detected Normal Not Detected [facility] Comment on above: Result Comment: Xper t CT/NG Assay performance has not been evaluated in patients less than 14 years of age. Performed By: #### 3 [id number] ####JESSICA Misc Micro SubSection, HIV-1/2 Ag/Abon 05-15-2019 HIV Combo Internal Control Line Reactive Normal Reactive [facility] Comment on above: Performed By: #### 6 [id number] ####JESSICA Chemistry Manual [address]jbzr5742 [place] [address] HIV-1 & HIV-2 Antibodies Non-Reactive Normal Non-Reactive [facility] Comment on above: Performed By: #### 6 [id number] ####JESSICA Chemistry Manual Ntibqvcamg8708 [place] [address] HIV-1 p-24 Antigen Non-Reactive Normal Non-Reactive [facility] Comment on above: Performed By: #### 6 [id number] ####JESSICA Chemistry Manual [address] [place] [address] HIV-1/2 Ag/Ab Interp Negative Normal Negative [facility] Comment on above: Performed By: #### 6 [id number] ####JESSICA Chemistry Manual [address] [place] [address] Rubella IgG Lvlon 05-15-2019 Rubella IgG Lvl 25.3 (POS) Normal [facility] Comment on above: Result Comment: <10I U/ml NON REACTIVE: NOT IMMUNE 10-15 IU/ml RUBELLA SPECIFIC AB PRESENT, EVALUATE FURTHER TO DETERMINE IMMUNE STATUS >15 IU/ml REACTIVE, IMMUNE Performed By: #### 2 [id number] ####JESSICA [address] [place] [address] U BhCG Qlton 02-03-2019 HCG.beta subunit Qn Negative Normal Neg [facility] Comment on above: Performed By: #### 2 [id number] #### JESSICA Urinalysis Manual Subsection [address] [place] [address] UA Completeon 02-03-2019 Color (U) Yellow Normal Yellow [facility] Comment on above: Performed By: #### 8 [id number] ####JESSICA Urinalysis Automated [address]ui2720 [place] [address] Glucose (U) [Mass/Vol] Negative Normal Negative [facility] Comment on above: Performed By: #### 8 [id number] ####JESSICA Urinalysis Automated [address]clku2501 [place] [address] Ketones Ql (U) Negative Normal Negative [facility] Comment on above: Performed By: #### 8 [id number] ####JESSICA Urinalysis Automated Wcsjlgyjng9752 [place] [address] RBC (U) [#/Vol] 20-50 Abnormal 0-3 [facility] Comment on above: Performed By: #### 8 [id number] ####JESSICA Urinalysis Automated Vxrdlxnjfp0884 [place] [address] UA Blood 2+ Abnormal Negative [facility] Comment on above: Performed By: #### 8 [id number] ####JESSICA Urinalysis Automated Z[address]ill[address]68 [place] [address] UA Bacteria Trace Abnormal None [facility] Comment on above: Performed By: #### 8 [id number] ####JESSICA Urinalysis Automated [address] [place] [address] UA Clarity SltCloudy Abnormal Clear [facility] Comment on above: Performed By: #### 8 [id number] ####JESSICA Urinalysis Automated Nubfwihqzz6210 [place] [address] UA Hyal Cast 3-5 Abnormal 0-2 [facility] Comment on above: Performed By: #### 8 [id number] ####JESSICA Urinalysis Automated [address]zesui4358 [place] [address] UA Leuk Est Trace Normal Negative [facility] Comment on above: Performed By: #### 8 [id number] ####JESSICA Urinalysis Automated Qoaehustsf1907 [place] [address] UA Mucous Moderate Abnormal Trace [facility] Comment on above: Performed By: #### 8 [id number] ####JESSICA Urinalysis Automated Ihogmwdrfz2389 [place] [address] UA Nitrite Negative Normal Negative [facility] Comment on above: Performed By: #### 8 [id number] ####JESSICA Urinalysis Automated Ivxdgykuqd4665 [place] [address] UA pH 5.0 Normal 4.6-8.0 [facility] Comment on above: Performed By: #### 8 [id number] ####JESSICA Urinalysis Automated Vwuqkyilvx2332 [place] [address] UA Protein Negative Normal Negative [facility] Comment on above: Performed By: #### 8 [id number] ####JESSICA Urinalysis Automated Bzhocljtdw4449 [place] [address] UA Spec Grav 1.028 Normal 1.003-1.030 [facility] Comment on above: Performed By: #### 8 [id number] ####JESSICA Urinalysis Automated [address]llcqphiyq1335 [place] [address] UA Squam Epithelial 0-5 Normal 0-5 [facility] Comment on above: Performed By: #### 8 [id number] ####JESSICA Urinalysis Automated Knmotiylgy7101 [place] [address] UA Urobilinogen Negative Normal [facility] Comment on above: Result Comment: Due to a manufacturing issue, low positive urobilinogen results may be fasely positive. Correlate with urine bilirubin and additional clinical/laboratory findings to assess the risk of hemolytic anemia or liver disease. If clinically indicated, repeat testing with an alternate method is available by contacting the laboratory within 24 hours. Performed By: #### 8 [id number] ####JESSICA Urinalysis Automated Tnxf[address]jcym0940 [place] [address] UA WBC 5-10 Abnormal 0-5 [facility] Comment on above: Performed By: #### 8 [id number] ####JESSICA Urinalysis Automated [address]kb5979 [place] [address] Urobilinogen Qn (U) Positive Abnormal Negative [facility] Comment on above: Performed By: #### 8 [id number] ####JESSICA Urinalysis Automated [address]hmvpd9942 [place] [id number] XR Knee Complete Lefton 11-28 XR Knee Complete Left Exam Date/Time: 12/16/2018 19:08 EDT Reason for Exam: Pain, Traumatic Report STUDY: XR Knee Complete Left;; 12/16/2018 7:08 pm INDICATION: Pain, Traumatic. COMPARISON: None. ACCESSION NUMBER(S): [id number] ORDERING CLINICIAN: Ramiro Frank FINDINGS: Left knee four views. The osseous structures and soft tissues appear normal. No fracture or dislocation is noted IMPRESSION: Unremarkable left knee FINAL REPORT Dictated: 12/16/2018 7:24 pm David Moreira MD Signed (Electronic Signature): 12/16/2018 7:24 pm Signed by: David Moreira MD Technologist: Normal [facility] C Bloodon 11-23-2018 C Blood Final Report: No jason wth at [address] [facility] Comment on above: Performed By: #### 2 [id number] #### JESSICA Urinalysis Manual Subsection [facility] [place] [address] C Urineon 11-20-2018 C Urine Final Report: 30,000 cfu/ml Escherichia coli in Normal skin osvaldo isolated ORGANISM: EC SUSCEPTIBILITY RESULTS Antibiotic ALEIDA Dilutn ALEIDA Interp ORGANISM: EC Amox/Cla : <=8/4 S Amp : >16 R Amp/Sul : 16/8 I Cefaz : <=8 S Cefo : <=2 S Cipro : <=1 S Gent : <=4 S Levo : <=2 S Haris : <=1 S Nitro : <=32 S Pip/Dominguez : <=16 S Tetra : <=4 S Tobra : <=4 S SXT : <=2/[address] [facility] Comment on above: Performed By: #### 2 [id number] #### JESSICA Urinalysis Manual Subsection [address] [place] [address] Auto Diffon 11-19-2018 Basophils (Bld) [#/Vol] 0.1 E3/mcL Normal 0.0-0.2 [facility] Comment on above: Order Comment: Order Added by Discern Expert. Performed By: #### 2 [id number] #### JESSICA Urinalysis Manual Subsection [facility] [place] [address] Basophils/100 WBC (Bld) 0.6 % Normal 0.0-2.0 [facility] Comment on above: Order Comment: Order Added by Discern Expert. Performed By: #### 2 [id number] #### JESSICA Urinalysis Manual Subsection [address] [place] [address] Eos Absolute 0.3 E3/mcL Normal 0.0-0.7 [facility] Comment on above: Order Comment: Order Added by Discern Expert. Performed By: #### 2 [id number] #### JESSICA Urinalysis Manual Subsection [facility] [place] [address] Eosinophils/100 WBC (Bld) 3.3 % Normal 0.0-11.0 [facility] Comment on above: Order Comment: Order Added by Discern Expert. Performed By: #### 2 [id number] #### JESSICA Urinalysis Manual Subsection [facility] [place] [address] Lymphocytes (Bld) [#/Vol] 1.9 E3/mcL Normal 1.2-3.4 [facility] Comment on above: Order Comment: Order Added by Discern Expert. Performed By: #### 2 [id number] #### JESSICA Urinalysis Manual Subsection [address] [place] [address] Lymphocytes/100 WBC (Bld) 21.1 % Normal 20.0-55.0 [facility] Comment on above: Order Comment: Order Added by Discern Expert. Performed By: #### 2 [id number] #### JESSICA Urinalysis Manual Subsection [address] [place] [address] [address] [place] Absolute 1.0 E3/mcL High 0.0-0.7 [facility] Comment on above: Order Comment: Order Added by Discern Expert. Performed By: #### 2 [id number] #### JESSICA Urinalysis Manual Subsection [address] [place] [address] Monocytes/100 WBC (Bld) 11.3 % High 0.0-10.0 [facility] Comment on above: Order Comment: Order Added by Discern Expert. Performed By: #### 2 [id number] #### JESSICA Urinalysis Manual Subsection [address] [place] [address] Neutro Absolute 5.7 E3/mcL Normal 1.4-6.5 [facility] Comment on above: Order Comment: Order Added by Discern Expert. Performed By: #### 2 [id number] #### JESSICA Urinalysis Manual Subsection [address] [place] [address] Neutro Auto 63.7 % Normal 37.0-75.0 [facility] Comment on above: Order Comment: Order Added by Discern Expert. Performed By: #### 2 [id number] #### JESSICA Urinalysis Manual Subsection [facility] [place] [address] BMPon 11-19-2018 Anion gap [Moles/Vol] 8 mmol/L Low 10-20 [facility] Comment on above: Performed By: #### 2 [id number] #### JESSICA Urinalysis Manual Subsection [address] [place] [address] Calcium [Mass/Vol] 8.4 mg/dL Low 8.5-10.7 [facility] Comment on above: Performed By: #### 2 [id number] #### JESSICA Urinalysis Manual Subsection [facility] [place] [address] Chloride [Moles/Vol] 110 mmol/L High 98-[address] [facility] Comment on above: Performed By: #### 2 353915 #### JESSICA Urinalysis Manual Subsection [facility] [place] [address] CO2 [Moles/Vol] 27.0 mmol/L Normal 21.0-32.0 [facility] Comment on above: Performed By: #### 2 516997 #### JESSICA Urinalysis Manual Subsection [facility] [place] [address] Creatinine [Mass/Vol] 0.7 mg/dL Normal 0.5-1.1 [facility] Comment on above: Performed By: #### 2 [id number] #### JESSICA Urinalysis Manual Subsection [facility] [place] [address] Glucose [Mass/Vol] 80 mg/dL Normal 70-99 [facility] Comment on above: Performed By: #### 2 [id number] #### JESSICA Urinalysis Manual Subsection [facility] [place] [address] Potassium [Moles/Vol] 3.7 mmol/L Normal 3.5-5.3 [facility] Comment on above: Performed By: #### 2 [id number] #### JESSICA Urinalysis Manual Subsection [facility] [place] [address] Sodium [Moles/Vol] 141 mmol/L Normal 136-145 [facility] Comment on above: Performed By: #### 2 338018 #### JESSICA Urinalysis Manual Subsection [address] [place] [address] Urea nitrogen [Mass/Vol] 8 mg/dL Normal 6-23 [facility] Comment on above: Performed By: #### 2 [id number] #### JESSICA Urinalysis Manual Subsection [address] [place], [place] [address] Urea nitrogen/Creatinine [Mass ratio] 11.4 ratio Normal 5.4-30.0 [facility] Comment on above: Performed By: #### 2 [id number] #### JESSICA Urinalysis Manual Subsection [address] [place] [address] CBC w/ Auto Diffon 9 Erythrocyte distribution width (RBC) [Ratio] 14.1 % Normal 11.5-14.5 [facility] Comment on above: Performed By: #### 2 523603 #### JESSICA Urinalysis Manual Subsection [address] [place] [address] Hematocrit (Bld) [Volume fraction] 35.9 % Low 36.0-48.0 [facility] Comment on above: Performed By: #### 2 [id number] #### JESSICA Urinalysis Manual Subsection [address] [place] [address] Hemoglobin (Bld) [Mass/Vol] 11.9 g/dL Low 12.0-16.0 [facility] Comment on above: Performed By: #### 2 306256 #### JESSICA Urinalysis Manual Subsection [address] [place] [address] MCH (RBC) [Entitic mass] 29.0 pg Normal 27.0-31.0 [facility] Comment on above: Performed By: #### 2 [id number] #### JESSICA Urinalysis Manual Subsection [address] [place] [address] MCHC (RBC) [Mass/Vol] 33.2 g/dL Normal 33.0-37.0 [facility] Comment on above: Performed By: #### 2 [id number] #### JESSICA Urinalysis Manual Subsection [address] [place] [address] MCV (RBC) [Entitic vol] 87.1 fL Normal 78.0-100.0 [facility] Comment on above: Performed By: #### 2 557383 #### JESSICA Urinalysis Manual Subsection [address] [place] [address] Platelet mean volume (Bld) [Entitic vol] 8.8 fL Normal 7.4-11.0 [facility] Comment on above: Performed By: #### 2 005456 #### JESSICA Urinalysis Manual Subsection [address] [place] [address] Platelets (Bld) [#/Vol] 164 E3/mcL Normal 130-400 [facility] Comment on above: Performed By: #### 2 [id number] #### JESSICA Urinalysis Manual Subsection [address] [place] [address] RBC (Bld) [#/Vol] 4.12 E6/mcL Normal 3.90-5.40 [facility] Comment on above: Performed By: #### 2 581306 #### JESSICA Urinalysis Manual Subsection [address] [place] [address] WBC (Bld) [#/Vol] 8.9 E3/mcL Normal 3.6-11.0 [facility] Comment on above: Performed By: #### 2 [id number] #### JESSICA Urinalysis Manual Subsection [address] [place] [address] eGFRon 11-19-2018 GFR/1.73 sq M predicted among non-blacks MDRD (S/P/Bld) [Vol rate/Area] mL/min/{1.73_m2} Normal [facility] Comment on above: Order Comment: Order added by Discern Expert. Performed By: #### 2 [id number] #### JESSICA Urinalysis Manual Subsection [address] [place] [address] Auto Diffon 11-18-2018 Basophils (Bld) [#/Vol] 0.1 E3/mcL Normal 0.0-0.2 [facility] Comment on above: Order Comment: Order Added by Discern Expert. Performed By: #### 2 [id number] #### JESSICA RemHemo [address] [place] [address] Basophils/100 WBC (Bld) 0.3 % Normal 0.0-2.0 [facility] Comment on above: Order Comment: Order Added by Discern Expert. Performed By: #### 2 [id number] #### JESSICA RemHemo [address] [place] [address] Eos Absolute 0.2 E3/mcL Normal 0.0-0.7 [facility] Comment on above: Order Comment: Order Added by Discern Expert. Performed By: #### 2 986909 #### JESSICA RemHemo [address] [place] [address] Eosinophils/100 WBC (Bld) 1.1 % Normal 0.0-11.0 [facility] Comment on above: Order Comment: Order Added by Discern Expert. Performed By: #### 2 [id number] #### JESSICA RemHemo [address] [place] [address] Lymphocytes (Bld) [#/Vol] 1.9 E3/mcL Normal 1.2-3.4 [facility] Comment on above: Order Comment: Order Added by Alcides Expert. Performed By: #### 2 573561 #### JESSICA RemHemo [address] [place] [address] Lymphocytes/100 WBC (Bld) 10.5 % Low 20.0-55.0 [facility] Comment on above: Order Comment: Order Added by Alcides Expert. Performed By: #### 2 [id number] #### JESSICA RemHemo [address] [place] [address] [place] Absolute 1.0 E3/mcL High 0.0-0.7 [facility] Comment on above: Order Comment: Order Added by Alcides Expert. Performed By: #### 2 [id number] #### JESSICA RemHemo [address] [place] [address] Monocytes/100 WBC (Bld) 5.4 % Normal 0.0-10.0 [facility] Comment on above: Order Comment: Order Added by Alcides Expert. Performed By: #### 2 262703 #### JESSICA RemHemo [address] [place] [address] Neutro Absolute 15.2 E3/mcL High 1.4-6.5 [facility] Comment on above: Order Comment: Order Added by Discern Expert. Performed By: #### 2 272419 #### JESSICA RemHemo [address] [place] [address] Neutro Auto 82.7 % High 37.0-75.0 [facility] Comment on above: Order Comment: Order Added by Discern Expert. Performed By: #### 2 [id number] #### JESSICA RemHemo [address] [place] [address] BMPon 11-18-2018 Anion gap [Moles/Vol] 13 mmol/L Normal 10-20 [facility] Comment on above: Performed By: #### 2 638791 #### JESSICA RemChem [address] [place] [address] Calcium [Mass/Vol] 9.5 mg/dL Normal 8.5-10.7 [facility] Comment on above: Performed By: #### 2 092496 #### JESSICA RemChem [address] [place] [address] Chloride [Moles/Vol] 105 mmol/L Normal 98-[address] [facility] Comment on above: Performed By: #### 2 [id number] #### JESSICA RemChem [address] [place] [address] CO2 [Moles/Vol] 26.0 mmol/L Normal 21.0-32.0 [facility] Comment on above: Performed By: #### 2 666543 #### JESSICA RemChem [address] [place] [address] Creatinine [Mass/Vol] 0.7 mg/dL Normal 0.5-1.1 [facility] Comment on above: Performed By: #### 2 836241 #### JESSICA RemChem [address] [place] [address] Glucose [Mass/Vol] 87 mg/dL Normal 70-99 [facility] Comment on above: Performed By: #### 2 055711 #### JESSICA [employer] [address] [place] [address] Potassium [Moles/Vol] 3.6 mmol/L Normal 3.5-5.3 [facility] Comment on above: Performed By: #### 2 253847 #### JESSICA [employer] [address] [place] [address] Sodium [Moles/Vol] 140 mmol/L Normal 136-145 [facility] Comment on above: Performed By: #### 2 345398 #### JESSICA [employer] [address] [place] [address] Urea nitrogen [Mass/Vol] 10 mg/dL Normal 6-23 [facility] Comment on above: Performed By: #### 2 133827 #### JESSICA GonzalezChem [address] [place] [address] Urea nitrogen/Creatinine [Mass ratio] 14.3 ratio Normal 5.4-30.0 [facility] Comment on above: Performed By: #### 2 [id number] #### JESSICA GonzalezChem [address] [place] [address] CBC w/ Auto Diffon Erythrocyte distribution width (RBC) [Ratio] 14.5 % Normal 11.5-14.5 [facility] Comment on above: Performed By: #### 2 110413 #### JESSICA GonzalezHemo [address] [place] [address] Hematocrit (Bld) [Volume fraction] 42.1 % Normal 36.0-48.0 [facility] Comment on above: Performed By: #### 2 [id number] #### JESSICA GonzalezHemo [address] [place] [address] Hemoglobin (Bld) [Mass/Vol] 14.0 g/dL Normal 12.0-16.0 [facility] Comment on above: Performed By: #### 2 453173 #### JESSICA GonzalezHemo [address] [place] [address] MCH (RBC) [Entitic mass] 28.7 pg Normal 27.0-31.0 [facility] Comment on above: Performed By: #### 2 708548 #### JESSICA RemHemo [address] [place] [address] MCHC (RBC) [Mass/Vol] 33.2 g/dL Normal 33.0-37.0 [facility] Comment on above: Performed By: #### 2 501924 #### JESSICA RemHemo [address] [place] [address] MCV (RBC) [Entitic vol] 86.4 fL Normal 78.0-100.0 [facility] Comment on above: Performed By: #### 2 202656 #### JESSICA GonzalezHemo [facility] [place] [address] Platelet mean volume (Bld) [Entitic vol] 8.7 fL Normal 7.4-11.0 [facility] Comment on above: Performed By: #### 2 531740 #### JESSICA GonzalezHemo [facility] [place] [address] Platelets (Bld) [#/Vol] 236 E3/mcL Normal 130-400 [facility] Comment on above: Performed By: #### 2 [id number] #### JESSICA GonzalezHemo [facility] [place] [address] RBC (Bld) [#/Vol] 4.87 E6/mcL Normal 3.90-5.40 [facility] Comment on above: Performed By: #### 2 905962 #### JESSICA GonzalezHemo [facility] [place] [address] WBC (Bld) [#/Vol] 18.4 E3/mcL High 3.6-11.0 [facility] Comment on above: Performed By: #### 2 786756 #### JESSICA GonzalezHemo [facility] [place] [address] CT Abdomen/Pelvis w/o Contra ston 11-18-2018 CT Abdomen/Pelvis w/o Contrast Exam Date/Time: 11/18/2018 02:24 EST Reason for Exam: Pain Report STUDY: CT Abdomen/Pelvis w/o Contrast; 11/18/2018 2:24 am INDICATION: Pain. Right flank pain/right upper quadrant pain, diagnosed with UTI on 11/13/2018. Periumbilical pain intermittent for 5 days. COMPARISON: CT abdomen and pelvis 11/13/2018. ACCESSION NUMBER(S): [id number] ORDERING CLINICIAN: Isaiah Gamble TECHNIQUE: CT of the abdomen and pelvis was performed with no contrast administration. Coronal and sagittal reformats were obtained. FINDINGS: LOWER CHEST: No focal consolidation or pleural effusion. ABDOMEN: LIVER: Unremarkable unenhanced appearance. BILE DUCTS: No obvious dilation. GALLBLADDER: Present. PANCREAS: No peripancreatic inflammatory changes. SPLEEN: Unremarkable unenhanced appearance. ADRENAL GLANDS: Unremarkable. KIDNEYS AND URETERS: Exam Date/Time: 11/18/2018 02:24 EST Report There is mild right hydronephrosis. No obstructing right ureteral calculi is seen. There is no left hydronephrosis. There are bilateral punctate renal calculi measuring up to 3 mm on the right and 2 mm on the left. BOWEL: The stomach is distended with enteric contents. No dilated bowel loops or focal inflammatory changes. The appendix is normal. VESSELS: No abdominal aortic aneurysm. PELVIS: The urinary bladder is partially distended. There is mild soft tissue stranding at the urinary bladder. The uterus is present. A tampon is seen at the vagina. PERITONEUM/RETROPERITONE UM/LYMPH NODES: No free fluid or free air. No retroperitoneal hemorrhage. No pathologically enlarged lymph nodes are identified. ABDOMINAL WALL: There is a small fat containing umbilical hernia. BONE AND SOFT TISSUE: No acute osseous findings. IMPRESSION Bilateral nephrolithiasis. Mild right hydronephrosis with no obstructing ureteral calculus identified, may be secondary to a recently passed calculus versus acute infection/inflammation such as pyelonephritis. Mild soft tissue stranding at the urinary bladder, may be seen with cystitis. Please correlate with laboratory values/urinalysis. FINAL REPORT Dictated: 11/18/2018 2:32 am Alpa Beckett DO Signed (Electronic Signature): 11/18/2018 2:32 am Signed by: Alpa Beckett DO Technologist: MARY Morse [facility] Hep Func Panelon 11-18-2018 Albumin [Mass/Vol] 4.4 g/dL Normal 3.4-5.0 [facility] Comment on above: Performed By: #### 2 [id number] #### JESSICA [facility] [place] [address] Albumin/Globulin [Mass ratio] 1.6 {ratio} Normal 1.1-1.9 [facility] Comment on above: Performed By: #### 2 [id number] #### JESSICA Gonzalez[facility] [address] [place] [address] Alk Phos 90 Int._Unit/L Normal 33-110 [facility] Comment on above: Performed By: #### 2 [id number] #### JESSICA GonzalezChem [address] [place] [address] ALT [Catalytic activity/Vol] 13 Int._Unit/L Normal 7-45 [facility] Comment on above: Performed By: #### 2 [id number] #### JESSICA GonzalezChem [address] [place] [address] AST [Catalytic activity/Vol] 15 Int._Unit/L Normal 9-39 [facility] Comment on above: Performed By: #### 2 [id number] #### JESSICA GonzalezChem [address] [place] [address] Bili Direct 0.04 mg/dL Normal 0.00-0.30 [facility] Comment on above: Performed By: #### 2 [id number] #### JESSICA Gonzalez[address] [address] Bili Indirect 0.25 mg/dL Normal [facility] Comment on above: Result Comment: No e stablished ranges available for the indirect bilirubin Performed By: #### 2 [id number] #### JESSICA Gonzalez[address] [address] Bili Total 0.29 mg/dL Normal 0.00-1.20 [facility] Comment on above: Performed By: #### 2 [id number] #### [facility] [address] [place] [address] Globulin (S) [Mass/Vol] 3.0 g/dL Normal 2.0-4.0 [facility] Comment on above: Performed By: #### 2 [id number] #### JESSICA GonzalezChem [address] [place] [address] Protein [Mass/Vol] 7.2 g/dL Normal 6.4-8.2 [facility] Comment on above: Performed By: #### 2 [id number] #### JESSICA [facility] [address] [place] [address] Lipase Levelon 11-18-2018 Lipase Lvl 18 Int._Unit/L Normal 9-82 [facility] Comment on above: Performed By: #### 2 [id number] #### JESSICA [facility] [address] [place] [address] U BhCG Qlton 11-18-2018 HCG.beta subunit Qn Negative Normal Neg [facility] Comment on above: Performed By: #### 2 [id number] #### JESSICA Urinalysis Manual Subsection [facility] [place] [address] UA Completeon 11-18-2018 Color (U) Yellow Normal Yellow [facility] Comment on above: Performed By: #### 2 [id number] #### JESSICA Urinalysis Manual Subsection [facility] [place] [address] Glucose (U) [Mass/Vol] Negative Normal Negative [facility] Comment on above: Performed By: #### 2 [id number] #### JESSICA Urinalysis Manual Subsection [address] [place] [address] Ketones Ql (U) Negative Normal Negative [facility] Comment on above: Performed By: #### 2 [id number] #### JESSICA Urinalysis Manual Subsection [facility] [place] [address] RBC (U) [#/Vol] 5-10 Abnormal 0-3 [facility] Comment on above: Performed By: #### 2 [id number] #### JESSICA Urinalysis Manual Subsection [facility] [place] [address] UA Blood 1+ Abnormal Negative [facility] Comment on above: Performed By: #### 2 [id number] #### JESSICA Urinalysis Manual Subsection [facility] [place] [address] UA Bacteria 1+ /HPF Abnormal None [facility] Comment on above: Performed By: #### 2 [id number] #### JESSICA Urinalysis Manual Subsection [facility] [place] [address] UA Clarity Cloudy Abnormal Clear [facility] Comment on above: Performed By: #### 2 [id number] #### JESSICA Urinalysis Manual Subsection [address] [place] [address] UA Leuk Est 3+ Abnormal Negative [facility] Comment on above: Performed By: #### 2 [id number] #### JESSICA Urinalysis Manual Subsection [facility] [place] [address] UA Mucous Occasional Abnormal Trace [facility] Comment on above: Performed By: #### 2 [id number] #### JESSICA Urinalysis Manual Subsection [facility] [place] [address] UA Nitrite Negative Normal Negative [facility] Comment on above: Performed By: #### 2 [id number] #### JESSICA Urinalysis Manual Subsection [address] [place] [address] UA pH 5.0 Normal 4.6-8.0 [facility] Comment on above: Performed By: #### 2 [id number] #### JESSICA Urinalysis Manual Subsection [address] [place] [address] UA Protein 1+ Abnormal Negative [facility] Comment on above: Performed By: #### 2 [id number] #### JESSICA Urinalysis Manual Subsection [address] [place] [address] UA Spec Grav 1.014 Normal 1.003-1.030 [facility] Comment on above: Performed By: #### 2 [id number] #### JESSICA Urinalysis Manual Subsection [address] [place] [address] UA Squam Epithelial 0-5 Normal 0-5 [facility] Comment on above: Performed By: #### 2 [id number] #### JESSICA Urinalysis Manual Subsection [address] [place] [address] UA Urobilinogen Negative Normal [facility] Comment on above: Result Comment: Due to a manufacturing issue, low positive urobilinogen results may be fasely positive. Correlate with urine bilirubin and additional clinical/laboratory findings to assess the risk of hemolytic anemia or liver disease. If clinically indicated, repeat testing with an alternate method is available by contacting the laboratory within 24 hours. Performed By: #### 2 [id number] #### JESSICA Urinalysis Manual Subsection [address] [place] [address] UA WBC >50 Abnormal 0-5 [facility] Comment on above: Performed By: #### 2 [id number] #### JESSICA Urinalysis Manual Subsection [address] [place] [address] UA WBC Clump Occasional Abnormal None [facility] Comment on above: Performed By: #### 2 [id number] #### JESSICA Urinalysis Manual Subsection [address] [place] [address] Urobilinogen Qn (U) Negative Normal Negative [facility] Comment on above: Performed By: #### 2 [id number] #### JESSICA Urinalysis Manual Subsection [address] [place] [id number] eGFRon 11-18-2018 GFR/1.73 sq M predicted among non-blacks MDRD (S/P/Bld) [Vol rate/Area] mL/min/{1.73_m2} Normal [facility] Comment on above: Order Comment: Order added by Discern Expert. Performed By: #### 1 [id number] #### JESSICA [facility] [address] [place] [address] CT Abdomen/Pelvis w/o Contra ston 11-13-2018 CT Abdomen/Pelvis w/o Contrast Exam Date/Time: 11/13/2018 20:08 EST Reason for Exam: Pain Report STUDY: CT Abdomen/Pelvis w/o Contrast; 11/13/2018 8:08 pm INDICATION: Pain. COMPARISON: None. ACCESSION NUMBER(S): [id number] ORDERING CLINICIAN: Ramiro Frank TECHNIQUE: CT of the abdomen pelvis was performed without intravenous contrast. Multiplanar reconstruction was performed. FINDINGS: LOWER CHEST: No acute abnormality of the lung bases. BONES: No acute osseous abnormality. ABDOMINAL WALL: Within normal limits. ABDOMEN: Study is limited due to lack of intravenous contrast. LIVER: Within normal limits. BILE DUCTS: Normal caliber. GALLBLADDER: No calcified gallstones. No wall thickening. PANCREAS: Within normal limits. SPLEEN: Calcified granulomas identified in the spleen. ADRENALS: Within normal limits. KIDNEYS and URETERS: There are few stones in bilateral kidneys measuring up to 3 mm on the right and 1-2 mm on the left. There is no hydronephrosis. There is no ureteral stone or hydroureter. VESSELS: No aortic aneurysm. RETROPERITONEUM: No pathologically enlarged retroperitoneal lymph nodes. PELVIS: REPRODUCTIVE ORGANS: No pelvic masses. BLADDER: There is mild stranding of the urinary bladder wall BOWEL: Stomach is unremarkable. No dilated bowel. Normal appendix. PERITONEUM: No ascites or free air, no fluid collection. Exam Date/Time: 11/13/2018 20:08 EST Report IMPRESSION: 1. A few stones in bilateral kidneys as described above. There is no associated hydronephrosis. No hydroureter or ureteral stone. 2. Mild stranding of the urinary bladder wall. Correlation with UA findings to exclude cystitis. 3. Unremarkable appendix. FINAL REPORT Dictated: 11/13/2018 8:59 pm David Montanez MD Signed (Electronic Signature): 11/13/2018 8:59 pm Signed by: David Montanez MD Technologist: AM Normal [facility] U BhCG Qlton 11-13-2018 HCG.beta subunit Qn Negative Normal Neg [facility] Comment on above: Performed By: #### 2 [id number] #### JESSICA Urinalysis Manual Subsection [facility] [place] [address] UA Completeon 11-13-2018 Color (U) Yellow Normal Yellow [facility] Comment on above: Performed By: #### 8 [id number] #### JESSICA Urinalysis Automated [facility]section [facility] [place] [address] Glucose (U) [Mass/Vol] Negative Normal Negative [facility] Comment on above: Performed By: #### 8 [id number] #### JESSICA Urinalysis Automated [facility] [place] [address] Ketones Ql (U) Negative Normal Negative [facility] Comment on above: Performed By: #### 8 [id number] #### JESSICA Urinalysis Automated [facility] [place] [address] RBC (U) [#/Vol] /uL Abnormal 0-3 [facility] Comment on above: Performed By: #### 8 [id number] #### JESSICA Urinalysis Automated [facility] [place] [address] UA Blood 3+ Normal Negative [facility] Comment on above: Performed By: #### 8 [id number] #### JESSICA Urinalysis Automated [facility] [place] [address] UA Bacteria 4+ /HPF Abnormal None [facility] Comment on above: Performed By: #### 8 [id number] #### JESSICA Urinalysis Automated [facility] [place] [address] UA Clarity Cloudy Abnormal Clear [facility] Comment on above: Performed By: #### 8 [id number] #### JESSICA Urinalysis Automated Subsection [address] [place] [address] UA Leuk Est 3+ Abnormal Negative [facility] Comment on above: Performed By: #### 8 [id number] #### JESSICA Urinalysis Automated Subsection [address] [place] [address] UA Mucous Few Abnormal Trace [facility] Comment on above: Performed By: #### 8 [id number] #### JESSICA Urinalysis Automated Subsection [address] [place] [address] UA Nitrite Positive Abnormal Negative [facility] Comment on above: Performed By: #### 8 [id number] #### JESSICA Urinalysis Automated Subsection [address] [place] [address] UA pH 6.0 Normal 4.6-8.0 [facility] Comment on above: Performed By: #### 8 [id number] #### JESSICA Urinalysis Automated Subsection [address] [place] [address] UA Protein 2+ Abnormal Negative [facility] Comment on above: Performed By: #### 8 [id number] #### JESSICA Urinalysis Automated Subsection [address] [place] [address] UA Spec Grav 1.018 Normal 1.003-1.030 [facility] Comment on above: Performed By: #### 8 [id number] #### JESSICA Urinalysis Automated Subsection [address] [place] [address] UA Squam Epithelial 0-5 Normal 0-5 [facility] Comment on above: Performed By: #### 8 [id number] #### JESSICA Urinalysis Automated Subsection [address] [place] [address] UA Urobilinogen Negative Normal [facility] Comment on above: Result Comment: Due to a manufacturing issue, low positive urobilinogen results may be fasely positive. Correlate with urine bilirubin and additional clinical/laboratory findings to assess the risk of hemolytic anemia or liver disease. If clinically indicated, repeat testing with an alternate method is available by contacting the laboratory within 24 hours. Performed By: #### 8 [id number] #### JESSICA Urinalysis Automated Subsection [address] [place] [address] UA WBC >50 Abnormal 0-5 [facility] Comment on above: Performed By: #### 8 [id number] #### JESSICA Urinalysis Automated Subsection [address] [place] [address] UA WBC Clump Few Abnormal None [facility] Comment on above: Performed By: #### 8 [id number] #### JESSICA Urinalysis Automated Subsection [address] [place] [address] Urobilinogen Qn (U) Negative Normal Negative [facility] Comment on above: Performed By: #### 8 [id number] #### JESSICA Urinalysis Automated Subsection [address] [place] [address] Vital Signs Date Time Vital Sign Value Performing Clinician Facility 04-23-2025 10:49-0400 Body height 165.1 cm Radha Cary PILE HEADER-C Work Phone: 6(597)221-889543 [place] [address] 04-23-2025 10:44-0400 Body mass index (BMI) [Ratio] 23 kg/m2 Radha Cary [employer] HEAD[employer] Work Phone: 2(747)160-396643 [place] [address] 04-23-2025 10:44-0400 Body weight 62.82 kg Radha Cary PILE HEADER[employer]C Work Phone: [facility] 04-23-2025 10:44-0400 Diastolic blood pressure 73 mm[Hg] Radha Cary PILE HEADER[employer]C Work Phone: [facility] 04-23-2025 10:44-0400 Systolic blood pressure 108 mm[Hg] Radha Cary PILE HEADER[employer]C Work Phone: [facility] 03-25-2025 13:34-0400 Body height 165.1 cm Radha Cary [employer] HEADER[employer]C Work Phone: [facility] 03-25-2025 13:34-0400 Body mass index (BMI) [Ratio] 22.4 kg/m2 Radha Cary [employer] HEAD[employer] Work Phone: [facility] 03-25-2025 13:34-0400 Body weight 61.23 kg Radha Cary [employer] HEAD[employer] Work Phone: 7(334)845-111443 [place] [address] 03-25-2025 13:34-0400 Diastolic blood pressure 60 mm[Hg] Radha Cary [employer] HEAD[employer] Work Phone: 6(485)447-148343 [place] [address] 03-25-2025 13:34-0400 Systolic blood pressure 98 mm[Hg] Radha Cary PILE HEADER[employer]C Work Phone: [facility] 02-24-2025 13:57-0400 Body height 165.1 cm Radha Cary [employer] HEAD[employer] Work Phone: 6(960)780-823943 [place] [address] 02-24-2025 13:57-0400 Body mass index (BMI) [Ratio] 22.8 kg/m2 Radha Cary [employer] Work Phone: 8(743)161-518943 [place] [address] 02-24-2025 13:57-0400 Body weight 62.14 kg Radha Cary [employer] Work Phone: 7(750)224-579943 [place] [address] 02-24-2025 13:57-0400 Diastolic blood pressure 62 mm[Hg] Radha Cary [employer] HEAD[employer] Work Phone: 9(958)630-939843 [place] [address] 02-24-2025 13:57-0400 Systolic blood pressure 97 mm[Hg] Radha Cary [employer] HEADER[employer]C Work Phone: 3(364)072-673643 [place] [address] 02-19-2025 14:34-0400 Body mass index (BMI) [Ratio] 22.8 kg/m2 Radha Cary PILE HEADER[employer]C Work Phone: [facility] 02-19-2025 14:34-0400 Body weight 62.19 kg Radha Cary [employer] HEAD[employer] Work Phone: 1(995)982-915643 [place] [address] 02-19-2025 14:34-0400 Diastolic blood pressure 80 mm[Hg] Radha Cary PILE HEADER[employer]C Work Phone: 2(142)159-964343 [place] [address] 02-19-2025 14:34-0400 Systolic blood pressure 120 mm[Hg] Radha Cary [employer] HEADER[employer]C Work Phone: 0(671)295-554643 [place] [address] 02-01-2025 13:03-0400 Body height 165.1 cm Radha Cary PILE HEADER[employer]C Work Phone: [facility] 02-01-2025 13:03-0400 Body mass index (BMI) [Ratio] 22.9 kg/m2 Radha Cary PILE HEADER[employer]C Work Phone: [facility] 02-01-2025 13:03-0400 Body weight 62.59 kg Radha Cary PILE HEADER[employer]C Work Phone: [facility] 02-01-2025 13:03-0400 Diastolic blood pressure 71 mm[Hg] Radha Cary PILE HEADER[employer]C Work Phone: [facility] 02-01-2025 13:03-0400 Systolic blood pressure 109 mm[Hg] Radha Cary PILE HEADER[employer]C Work Phone: [facility] 01-31-2025 18:31-0400 Body height 165.1 cm Forrest Mohr MD Work Phone: [facility] 01-31-2025 18:31-0400 Body mass index (BMI) [Ratio] 23.3 kg/m2 Forrest Mohr MD Work Phone: 4(266)937-842362 [address] 01-31-2025 18:31-0400 Body temperature 97.5 [degF] Forrest Mohr MD Work Phone: 0(802)390-645362 [address] 01-31-2025 18:31-0400 Body weight 63.5 kg Forrest Mohr MD Work Phone: 3(860)457-384932 [place] [address] 01-31-2025 18:31-0400 Diastolic blood pressure 65 mm[Hg] Forrest Mohr MD Work Phone: 9(785)340-841532 [place] [address] 01-31-2025 18:31-0400 Heart rate 89 /min Forrest Mohr MD Work Phone: 0(014)954-266732 [place] [address] 01-31-2025 18:31-0400 Respiratory rate 18 /min Forrest Mohr MD Work Phone: 7(510)096-121462 [address] 01-31-2025 18:31-0400 SaO2% (BldA) [Mass fraction] 96 % Forrest Mohr MD Work Phone: [facility] 01-31-2025 18:31-0400 Systolic blood pressure 118 mm[Hg] Forrest Mohr MD Work Phone: [facility] 01-05-2025 08:45-0400 Body mass index (BMI) [Ratio] 22.8 kg/m2 Radha Cary PILE HEADER[employer]C Work Phone: [facility] 01-05-2025 08:45-0400 Body weight 62.19 kg Radha Cary PILE HEADER[employer]C Work Phone: [facility] 01-05-2025 08:45-0400 Diastolic blood pressure 71 mm[Hg] Radha Cary PILE HEADER[employer]C Work Phone: [facility] 01-05-2025 08:45-0400 Systolic blood pressure 103 mm[Hg] Radha Cary PILE HEADER[employer]C Work Phone: [facility] 10-30-2024 10:57-0500 Body height 165.1 cm Forrest Mohr MD Work Phone: [facility] 10-30-2024 10:57-0500 Body mass index (BMI) [Ratio] 23.3 kg/m2 Forrest Mohr MD Work Phone: [facility] 10-30-2024 10:57-0500 Body temperature 98.01 [degF] Forrest Mohr MD Work Phone: [facility] 10-30-2024 10:57-0500 Body weight 63.5 kg Forrest Mohr MD Work Phone: [facility] 10-30-2024 10:57-0500 Diastolic blood pressure 79 mm[Hg] Forrest Mohr MD Work Phone: [facility] 10-30-2024 10:57-0500 Heart rate 116 /min Forrest Mohr MD Work Phone: [facility] 10-30-2024 10:57-0500 Respiratory rate 16 /min Forrest Mohr MD Work Phone: [facility] 10-30-2024 10:57-0500 SaO2% (BldA) [Mass fraction] 98 % Forrest Mohr MD Work Phone: [facility] 10-30-2024 10:57-0500 Systolic blood pressure 116 mm[Hg] Forrest Mohr MD Work Phone: [facility] 07-06-2024 13:52-0400 Body height 165.1 cm Jose Delgado MD Work Phone: [facility] 07-06-2024 13:52-0400 Body mass index (BMI) [Ratio] 23.66 kg/m2 Jose Delgado MD Work Phone: [facility] 07-06-2024 13:52-0400 Body weight 64.5 kg Jose Delgado MD Work Phone: [facility] 07-06-2024 13:52-0400 Diastolic blood pressure 62 mm[Hg] Jose Delgado MD Work Phone: [facility] 07-06-2024 13:52-0400 Systolic blood pressure 104 mm[Hg] Jose Delgado MD Work Phone: [facility] 03-05-2024 08:30-0400 Diastolic blood pressure 70 mm[Hg] Forrest Mohr MD Work Phone: [facility] 03-05-2024 08:30-0400 Heart rate 89 /min Forrest Mohr MD Work Phone: [facility] 03-05-2024 08:30-0400 Respiratory rate 16 /min Forrest Mohr MD Work Phone: [facility] 03-05-2024 08:30-0400 SaO2% (BldA) [Mass fraction] 98 % Forrest Mohr MD Work Phone: [facility] 03-05-2024 08:30-0400 Systolic blood pressure 107 mm[Hg] Forrest Mohr MD Work Phone: 8(889)260-125032 [place] [address] 03-05-2024 07:45-0400 Body temperature 98.01 [degF] Forrest Mohr MD Work Phone: 0(832)413-239762 [address] 03-05-2024 07:10-0400 Body height 165.1 cm Forrest Mohr MD Work Phone: 2(700)600-591632 [place] [address] 03-05-2024 07:10-0400 Body mass index (BMI) [Ratio] 23.53 kg/m2 Forrest Mohr MD Work Phone: 8(752)783-422262 [address] 03-05-2024 07:10-0400 Body weight 64.14 kg Forrest Mohr MD Work Phone: 5(335)139-285832 [place] [address] 01-30-2024 15:41-0400 Body height 165.1 cm Forrest Mohr MD Work Phone: [facility] 01-30-2024 15:41-0400 Body mass index (BMI) [Ratio] 23.3 kg/m2 Forrest Mohr MD Work Phone: 5(532)594-490632 [place] [address] 01-30-2024 15:41-0400 Body weight 63.5 kg Forrest Mohr MD Work Phone: [facility] 01-30-2024 15:41-0400 Diastolic blood pressure 66 mm[Hg] Forrest Mohr MD Work Phone: [facility] 01-30-2024 15:41-0400 Heart rate 77 /min Forrest Mohr MD Work Phone: [facility] 01-30-2024 15:41-0400 SaO2% (BldA) [Mass fraction] 98 % Forrest Mohr MD Work Phone: [facility] 01-30-2024 15:41-0400 Systolic blood pressure 102 mm[Hg] Forrest Morh MD Work Phone: [facility] 01-30-2024 13:00-0400 Diastolic blood pressure 69 mm[Hg] Shae Pastor DO Work Phone: [facility] 01-30-2024 13:00-0400 Heart rate 70 /min Shae Pastor DO Work Phone: [facility] 01-30-2024 13:00-0400 Respiratory rate 16 /min Shae Pastor DO Work Phone: [facility] 01-30-2024 13:00-0400 SaO2% (BldA) [Mass fraction] 100 % hSae Pastor DO Work Phone: [facility] 01-30-2024 13:00-0400 Systolic blood pressure 113 mm[Hg] Shae Browningersen DO Work Phone: [facility] 01-30-2024 10:57-0400 Body height 165.1 cm Shae Pastor DO Work Phone: [facility] 01-30-2024 10:57-0400 Body mass index (BMI) [Ratio] 23.3 kg/m2 Shae Browningersen DO Work Phone: [facility] 01-30-2024 10:57-0400 Body temperature 98.1 [degF] Shae Pastor DO Work Phone: [facility] 01-30-2024 10:57-0400 Body weight 63.5 kg Shae Browningersen DO Work Phone: [facility] 10-29-2023 12:56-0500 Body height 165.1 cm Radha Cary MANAGER SECURITY[employer] LAYER MACHINE OPERATOR Work Phone: [facility] 10-29-2023 12:56-0500 Body mass index (BMI) [Ratio] 22.86 kg/m2 Radha Cary MANAGER SECURITY-[employer] LAYER MACHINE OPERATOR Work Phone: [facility] 10-29-2023 12:56-0500 Body weight 62.31 kg Radha Cary MANAGER SECURITY-[employer] LAYER MACHINE OPERATOR Work Phone: [facility] 10-29-2023 12:56-0500 Diastolic blood pressure 60 mm[Hg] Radha Cary MANAGER SECURITY-[employer] LAYER MACHINE OPERATOR Work Phone: [facility] 10-29-2023 12:56-0500 Heart rate 72 /min Radha Cary MANAGER SECUR[employer] LAYER MACHINE OPERATOR Work Phone: [facility] 10-29-2023 12:56-0500 Systolic blood pressure 104 mm[Hg] Radha Cary MANAGER SECURITY-[employer] LAYER MACHINE OPERATOR Work Phone: [facility] 12-27-2022 23:39-0400 Diastolic blood pressure 80 mm[Hg] Radha Cary [facility] 12-27-2022 23:39-0400 Heart rate 87 /min Radha Cary [facility] 12-27-2022 23:39-0400 Respiratory rate 18 /min Radha Cary [facility] 12-27-2022 23:39-0400 SaO2% (BldA) [Mass fraction] 100 % Radha Cary [facility] 12-27-2022 23:39-0400 Systolic blood pressure 112 mm[Hg] Radha Cary [facility] 12-27-2022 18:01-0400 Body temperature 98.06 [degF] Radha Cary [facility] 12-27-2022 18:01-0400 Body weight 60 kg Radha Cary [facility] 11-05-2022 15:34-0500 Body height 165.1 cm Radha Cary Work Phone: [address] Work Phone: 11-05-2022 15:34-0500 Body mass index (BMI) [Ratio] 22.82 kg/m2 Radha Cary Work Phone: [facility] [place] [address] [address] Work Phone: 11-05-2022 15:34-0500 Body surface area Derived from formula 1.68 m2 Radha Cary Work Phone: [place] [address] [address] Work Phone: 11-05-2022 15:34-0500 Body weight 62.2 kg Radha Cary Work Phone: [facility] [place] [address] [address] Work Phone: 11-05-2022 15:34-0500 Diastolic blood pressure 64 mm[Hg] Radha Cary Work Phone: [place] [address] [address] Work Phone: 11-05-2022 15:34-0500 Systolic blood pressure 102 mm[Hg] Radha Cary Work Phone: [facility] [place] [address] [address] Work Phone: 10-23-2022 13:40-0500 Body height 165.1 cm Radha Cary Work Phone: [facility] center[facility] [place] [address] [address] Work Phone: 10-23-2022 13:40-0500 Body mass index (BMI) [Ratio] 22.6 kg/m2 Radha Cary Work Phone: [facility] center[facility] [place] [address] [address] Work Phone: 10-23-2022 13:40-0500 Body surface area Derived from formula 1.68 m2 Radha Cary Work Phone: [facility] centerBridgePort NetworksJosh[place] [address] [address] Work Phone: 10-23-2022 13:40-0500 Body weight 61.6 kg Radha Cary Work Phone: [facility] centerBridgePort NetworksJoshua [place] [address] [address] Work Phone: 10-23-2022 13:40-0500 Diastolic blood pressure 62 mm[Hg] Radha Cary Work Phone: [address] Work Phone: 10-23-2022 13:40-0500 Systolic blood pressure 102 mm[Hg] Radha Cary Work Phone: [address] Work Phone: 10-22-2022 00:05-0500 Diastolic blood pressure 59 mm[Hg] Radha Cary [facility] 10-22-2022 00:05-0500 Heart rate 85 /min Radhacherie Cary [facility] 10-22-2022 00:05-0500 Respiratory rate 18 /min Radhacherie Cary [facility] 10-22-2022 00:05-0500 SaO2% (BldA) [Mass fraction] 99 % Radhacherie Cary [facility] 10-22-2022 00:05-0500 Systolic blood pressure 110 mm[Hg] Radha Cary [facility] 10-21-2022 20:25-0500 Body height 165.1 cm Radha Cary [facility] 10-21-2022 20:25-0500 Body temperature 98.6 [degF] Radha Cary [facility] 10-21-2022 20:25-0500 Body weight 61 kg Radha Cary [facility] 10-17-2022 14:44-0500 Body height 165.1 cm Radha Cary Work Phone: [place] [address] [address] Work Phone: 10-17-2022 14:44-0500 Body mass index (BMI) [Ratio] 22.63 kg/m2 Radha Cary Work Phone: [place] [address] [address] Work Phone: 10-17-2022 14:44-0500 Body surface area Derived from formula 1.68 m2 Radha Cary Work Phone: [place] [address] [employer] Work Phone: 10-17-2022 14:44-0500 Body weight 61.69 kg Radha Cary Work Phone: [place] [address] [address] Work Phone: 10-17-2022 14:44-0500 Diastolic blood pressure 60 mm[Hg] Radha Cary Work Phone: [place] [address] [address] Work Phone: 10-17-2022 14:44-0500 Heart rate 84 /min Radha Cary Work Phone: [place] [address] [employer] Work Phone: 10-17-2022 14:44-0500 Systolic blood pressure 96 mm[Hg] Radha Cary Work Phone: [place] [address] [address] Work Phone: 08-23-2022 15:41-0500 Body height 165.1 cm Radha Cary [facility] 08-23-2022 15:41-0500 Body temperature 97.7 [degF] Radha Cary [facility] 08-23-2022 15:41-0500 Body weight 61.3 kg Radha Cary [facility] 08-23-2022 15:41-0500 Diastolic blood pressure 72 mm[Hg] Radha Cary [facility] 08-23-2022 15:41-0500 Heart rate 90 /min Radha Cary [facility] 08-23-2022 15:41-0500 Respiratory rate 16 /min Radha Cary [facility] 08-23-2022 15:41-0500 SaO2% (BldA) [Mass fraction] 97 % Radha Cary [facility] 08-23-2022 15:41-0500 Systolic blood pressure 118 mm[Hg] Radha Cary [facility] 08-13-2022 14:06-0500 Body height 165.1 cm Radha Cary Work Phone: [place] [address] [address] Work Phone: 08-13-2022 14:06-0500 Body mass index (BMI) [Ratio] 22.49 kg/m2 Radha Cary Work Phone: [place] [address] [address] Work Phone: 08-13-2022 14:06-0500 Body surface area Derived from formula 1.67 m2 Radha Cary Work Phone: [place] [address] [address] Work Phone: 08-13-2022 14:06-0500 Body weight 61.3 kg Radha Cary Work Phone: [place] [address] [address] Work Phone: 08-13-2022 14:06-0500 Diastolic blood pressure 62 mm[Hg] Radha Cary Work Phone: [place] [address] [address] Work Phone: 08-13-2022 14:06-0500 Systolic blood pressure 104 mm[Hg] Radha Cary Work Phone: [address] Work Phone: 07-11-2022 15:18-0400 Body height 165.1 cm Radha Cary Work Phone: [place] [address] [address] Work Phone: 07-11-2022 15:18-0400 Body mass index (BMI) [Ratio] 21.06 kg/m2 Radha Cary Work Phone: [place] [address] [address] Work Phone: 07-11-2022 15:18-0400 Body surface area Derived from formula 1.63 m2 Radha Cary Work Phone: [place] [address] [address] Work Phone: 07-11-2022 15:18-0400 Body weight 57.4 kg Radha Cary Work Phone: [place] [address] [address] Work Phone: 07-11-2022 15:18-0400 Diastolic blood pressure 60 mm[Hg] Radha Cary Work Phone: [place] [address] [address] Work Phone: 07-11-2022 15:18-0400 Systolic blood pressure 100 mm[Hg] Radha Cary Work Phone: [place] [address] [address] Work Phone: 07-06-2022 01:48-0400 Diastolic blood pressure 77 mm[Hg] Radha Cary [facility] 07-06-2022 01:48-0400 Heart rate 77 /min Radhacherie Cary [facility] 07-06-2022 01:48-0400 Respiratory rate 16 /min Radha Cary [facility] 07-06-2022 01:48-0400 SaO2% (BldA) [Mass fraction] 96 % Radha Cary [facility] 07-06-2022 01:48-0400 Systolic blood pressure 111 mm[Hg] Radha Cary [facility] 07-05-2022 23:35-0400 Body height 165.1 cm Radha Cary [facility] 07-05-2022 23:35-0400 Body temperature 97.34 [degF] Radha Cary [facility] 07-05-2022 23:35-0400 Body weight 55 kg Radha Cary [facility] 06-27-2022 14:19-0400 Body height 165.1 cm Radha Cary Work Phone: [place] [address] [employer] Work Phone: 06-27-2022 14:19-0400 Body mass index (BMI) [Ratio] 20.7 kg/m2 Radha Cary Work Phone: [facility] [employer] Work Phone: 06-27-2022 14:19-0400 Body surface area Derived from formula 1.62 m2 Radha Cary Work Phone: [address] Work Phone: 06-27-2022 14:19-0400 Body weight 56.42 kg Radha Cary Work Phone: [address] Work Phone: 06-27-2022 14:19-0400 Diastolic blood pressure 60 mm[Hg] Radha Cary Work Phone: [address] Work Phone: 06-27-2022 14:19-0400 Systolic blood pressure 100 mm[Hg] Radha Cary Work Phone: [address] Work Phone: 04-04-2022 14:56-0400 Body height 165.1 cm Radha Cary Work Phone: [facility] 205 DO Work Phone: 04-04-2022 14:56-0400 Body mass index (BMI) [Ratio] 19.56 kg/m2 Radha Cary Work Phone: [facility] 205 DO Work Phone: 04-04-2022 14:56-0400 Body surface area Derived from formula 1.58 m2 Radha Cary Work Phone: [facility] 205 DO Work Phone: 04-04-2022 14:56-0400 Body weight 53.33 kg Radha Cary Work Phone: [facility] 205 DO Work Phone: 04-04-2022 14:56-0400 Diastolic blood pressure 58 mm[Hg] Radha Cary Work Phone: [facility] 205 DO Work Phone: 04-04-2022 14:56-0400 Heart rate 85 /min Radha Cary Work Phone: [facility] 205 DO Work Phone: 04-04-2022 14:56-0400 SaO2% (BldA) [Mass fraction] 99 % Radha Cary Work Phone: [place] [address] [address] Work Phone: 04-04-2022 14:56-0400 Systolic blood pressure 96 mm[Hg] Radha Cary Work Phone: [place] [address] [address] Work Phone: 03-07-2022 15:00-0400 Body height 165.1 cm Radha Cary Work Phone: [facility] Work Phone: 03-07-2022 15:00-0400 Body mass index (BMI) [Ratio] 19.4 kg/m2 Radha Cary Work Phone: [place] [facility] Work Phone: 03-07-2022 15:00-0400 Body surface area Derived from formula 1.57 m2 Radha Cary Work Phone: [place] [facility] Work Phone: 03-07-2022 15:00-0400 Body weight 52.87 kg Radha Cary Work Phone: [place] Work Phone: 03-07-2022 15:00-0400 Diastolic blood pressure 64 mm[Hg] Radha Cary Work Phone: [place] [facility] Work Phone: 03-07-2022 15:00-0400 Heart rate 94 /min Radha Cary Work Phone: [place] [facility] Work Phone: 03-07-2022 15:00-0400 SaO2% (BldA) [Mass fraction] 98 % Radha Cary Work Phone: [place] [facility] Work Phone: 03-07-2022 15:00-0400 Systolic blood pressure 90 mm[Hg] Radha Cary Work Phone: [place] [facility] Work Phone: 01-19-2022 13:08-0400 Body height 165.1 cm Valencia L Oberhauser Work Phone: [place] [address] [address] Work Phone: 01-19-2022 13:08-0400 Body mass index (BMI) [Ratio] 18.64 kg/m2 Valencia L Oberhauser Work Phone: [place] [address] [address] Work Phone: 01-19-2022 13:08-0400 Body surface area Derived from formula 1.55 m2 Valencia L Oberhauser Work Phone: [place] [address] [address] Work Phone: 01-19-2022 13:08-0400 Body weight 50.8 kg Valencia L Oberhauser Work Phone: [place] [address] [address] Work Phone: 01-19-2022 13:08-0400 Diastolic blood pressure 62 mm[Hg] Valencia L Oberhauser Work Phone: [place] [address] [address] Work Phone: 01-19-2022 13:08-0400 Systolic blood pressure 100 mm[Hg] Valencia L Oberhauser Work Phone: [place] [address] [address] Work Phone: 01-16-2022 14:11-0400 Body height 165.1 cm Valencia L Oberhauser Work Phone: [place] [address] [address] Work Phone: 01-16-2022 14:11-0400 Body mass index (BMI) [Ratio] 18.56 kg/m2 Valencia L Oberhauser Work Phone: [place] [address] [address] Work Phone: 01-16-2022 14:11-0400 Body surface area Derived from formula 1.54 m2 Valencia L Oberhauser Work Phone: [place] [address] [address] Work Phone: 01-16-2022 14:11-0400 Body weight 50.6 kg Valencia Charleserhauser Work Phone: [place] [address] [address] Work Phone: 01-16-2022 14:11-0400 Diastolic blood pressure 60 mm[Hg] Valencia L Oberhauser Work Phone: [place] [address] [address] Work Phone: 01-16-2022 14:11-0400 Systolic blood pressure 100 mm[Hg] Valencia L Oberhauser Work Phone: [place] [address] [address] Work Phone: 10-08-2019 17:28-0500 BMI (Body Mass Index) 25.72 kg/m2 [place] [address] [address] Work Phone: 10-08-2019 17:28-0500 Body weight 70.1 kg [place] [address] [address] Work Phone: 10-08-2019 17:28-0500 BP Diastolic 70 mm[Hg] Keara Betancourt d [address] Work Phone: 10-08-2019 17:28-0500 BP Systolic 122 mm[Hg] Keara Zabala-Ashlan d [address] Work Phone: 10-08-2019 17:28-0500 BSA (Body Surface Area) 1.77 m2 Keara Simpson [address] Work Phone: 10-08-2019 17:28-0500 Height 165.1 cm Keara Zabala-Alfredlan d [address] Work Phone: 09-21-2019 16:38-0500 BMI (Body Mass Index) 24.84 kg/m2 Keara Zabala-Rosana [address] Work Phone: 09-21-2019 16:38-0500 Body weight 67.7 kg Keara cabrera [address] Work Phone: 09-21-2019 16:38-0500 BP Diastolic 68 mm[Hg] Keara cabrera [address] Work Phone: 09-21-2019 16:38-0500 BP Systolic 120 mm[Hg] Keara Zabala-Catrachito d [address] Work Phone: 09-21-2019 16:38-0500 BSA (Body Surface Area) 1.75 m2 Keara Simpson [address] Work Phone: 09-21-2019 16:38-0500 Height 165.1 cm Keara cabrera [address] Work Phone: 09-21-2019 16:24-0500 BMI (Body Mass Index) 19.77 kg/m2 Keara Zabala[address] [address] Work Phone: 09-21-2019 16:24-0500 Body weight 53.9 kg Keara Ramírezlan d [address] Work Phone: 09-21-2019 16:24-0500 BSA (Body Surface Area) 1.59 m2 Keara Mckenzie [facility] [address] Work Phone: 09-21-2019 16:24-0500 Height 165.1 cm Keara Mckenzie [facility] [address] Work Phone: 04-16-2019 16:21-0400 BMI (Body Mass Index) 20.07 kg/m2 Keara Mckenzie [facility] [address] Work Phone: 04-16-2019 16:21-0400 Body weight 54.7 kg Keara Mckenzie [facility] [address] Work Phone: 04-16-2019 16:21-0400 BP Diastolic 56 mm[Hg] Keara Mckenzie [facility] [address] Work Phone: 04-16-2019 16:21-0400 BP Systolic 98 mm[Hg] Keara Mckenzie [facility] [address] Work Phone: 04-16-2019 16:21-0400 BSA (Body Surface Area) 1.6 m2 Keara Mckenzie [facility] [address] Work Phone: 04-16-2019 16:21-0400 Height 165.1 cm Keara Zabala-Ashlan d [address] Work Phone: Encounters Encounter Date Encounter Type Care Provider Facility Start: 04-23-2025 End: 04-23-2025 Patient encounter procedure Mariajose Ayala CNM -[facility] Work Phone: Start: 04-23-2025 End: 04-23-2025 ambulatory Radha JAVIER Work Phone: -[facility] Start: 04-08-2025 End: 04-08-2025 ambulatory COLLEEN ROSALES [facility] Start: 03-25-2025 End: 03-25-2025 Patient encounter procedure Aisha JAVIER -[facility] Work Phone: Start: 03-25-2025 End: 03-25-2025 ambulatory Radha Cary PILE HEADER-C Work Phone: [facility] Work Phone: Start: 02-24-2025 End: 02-24-[address] Colleen Villalobos DO -[facility] Work Phone: Start: 02-24-2025 End: 02-24-2025 ambulatory Radha Cary PILE HEADER-C Work Phone: [facility] Work Phone: Start: 02-24-2025 End: 02-24-2025 ambulatory Radha Cary Facility:[facility] Start: 02-19-2025 End: 02-19-[address] Colleen Villalobos DO -[facility] Work Phone: Start: 02-19-2025 End: 02-19-2025 ambulatory Radha Cary [place] Start: 02-05-2025 ambulatory Mariajose Ayala Facility :[facility] Start: 02-01-2025 End: 02-01-2025 ambulatory Radha Cary PILE HEADER-C Work Phone: [facility] Work Phone: Start: 02-01-2025 End: 02-01-2025 Patient encounter procedure Mariajose Ayala CNM -Laboratory, Specimen Work Phone: Start: 02-01-2025 End: 02-01-2025 Patient encounter procedure Mariajose Ayala CNM -[facility] Work Phone: Start: 02-01-2025 End: 02-01-2025 ambulatory Radha Cary [facility] Start: 02-01-2025 End: 02-01-2025 ambulatory Mariajose Ayala Facility:[facility] Start: 01-31-2025 End: 01-31-2025 Emergency department patient visit FORREST MOHR [facility] Emergency Medicine Comment on above: Morning sickness (HH S-HCC) (Primary Dx); Urinary tract infection without hematuria, site unspecified Start: 01-28-2025 End: 01-28-2025 Patient encounter procedure Mariajose Ayala CNM -[facility] Work Phone: Start: 01-28-2025 End: 01-28-2025 ambulatory Mariajose Ayala Facility:[facility] Start: 01-22-2025 Non-patient / Non-visit Tamar magaña RN -[facility] Work Phone: Start: 01-22-2025 ambulatory Radha Cary Facility:[facility] Start: 01-13-2025 End: 01-13-2025 ambulatory [facility] Ambulatory Start: 01-05-2025 End: 01-05-[address] Meena Us MD -[facility] Work Phone: Start: 01-05-2025 End: 01-05-2025 ambulatory Radha Cary Facility:[facility] Start: 10-30-2024 End: 10-30-2024 Emergency department patient visit FORREST MOHR [facility] Emergency Medicine Comment on above: Vaginal bleeding (Pr imary Dx) Start: 07-06-2024 End: 07-06-2024 Office outpatient visit 15 minutes Jose Delgado MD Work Phone: [facility] Office Building Comment on above: Amenorrhea (Primary Dx); test positive ([facility]) Start: 07-06-2024 End: 07-06-2024 ambulatory JOSE DELGADO [facility] Ambulatory Start: 06-30-2024 End: 07-07-2024 Telephone encounter Ana Callaway APRN.CNM Work Phone: OB/Gynecology Comment on above: 07/07 NOB Intake Jade tions Start: 05-02-2024 End: 05-02-2024 Emergency department patient visit FORREST M [facility] Start: 03-05-2024 End: 03-05-2024 Subsequent hospital visit by physician Forrest Mohr MD Work Phone: [facility] Comment on above: Colitis Start: 03-05-2024 End: 03-05-2024 ambulatory FORREST MOHR [facility] Start: 01-30-2024 End: 01-30-2024 Office outpatient new 45 minutes Forrest Mohr MD Work Phone: [facility] Internal Medicine Comment on above: Colitis (Primary Dx) Start: 01-30-2024 End: 01-30-2024 Emergency department patient visit Shae Pastor DO Work Phone: [facility] Emergency Medicine Comment on above: Colitis (Primary Dx) ; Rectal bleeding; Abdominal pain, generalized; Kidney stone Start: 10-29-2023 End: 10-29-2023 Office outpatient visit 15 minutes Radha Cary MANAGER SECURITY-CORE LAYER MACHINE OPERATOR Work Phone: [facility] Comment on above: Generalized anxiety disorder (Primary Dx); Persistent depressive disorder; BMI 22.0-22.9, adult Start: 02-27-2023 ambulatory Radha Cary Facility:[id number] Start: 01-23-2023 End: 01-23-2023 Office outpatient visit 15 minutes Radha Cary MANAGER SECURITY-CORE LAYER MACHINE OPERATOR Work Phone: [facility] Comment on above: Generalized anxiety disorder (Primary Dx); Current severe episode of major depressive disorder without psychotic features without prior episode ([facility] BMI 22.0-22.9, adult Start: 12-27-2022 End: 12-27-2022 Emergency department patient visit Taqueria Frank [facility] Emergency 14 Start: 12-27-2022 Patient encounter status Radha Cary [facility] Start: 11-06-2022 End: 11-06-2022 Emergency department patient visit Stephanie Allen [facility] Emergency 13 Start: 11-05-2022 ambulatory Radha Cary Facility:[id number] Start: 11-05-2022 Office outpatient vi sit 15 minutes Radha Cary Work Phone: [address] Work Phone: Start: 10-30-2022 ambulatory Radha Cary Facility:[id number] Start: 10-23-2022 Office outpatient vi sit 15 minutes Radha Cary Work Phone: [facility] [employer] Work Phone: Start: 10-23-2022 Patient encounter procedure Jose Delgado Tana Diggsaritan Start: 10-23-[address] Jose Delgado Facility:[id number] Start: 10-21-2022 End: 10-22-2022 [facility] Start: 10-20-2022 AUDIT Radha Cary Work Phone: [facility] [employer] Work Phone: Start: 10-19-2022 End: 10-19-2022 Emergency department patient visit Stephanie Ferrari Facility:[id number] Start: 10-18-2022 End: 10-18-2022 ambulatory [facility] Work Phone: Start: 10-18-2022 End: 10-18-2022 Patient encounter procedure [facility]-Laboratory Start: 10-17-2022 ambulatory Radha Cary Facility:[id number] Start: 10-10-2022 ambulatory Radha Cary Facility:[id number] Start: 08-23-2022 End: 08-23-2022 [facility] Start: 08-13-2022 Office outpatient vi sit 15 minutes Radha Cary Work Phone: [facility] [employer] Work Phone: Start: 08-13-[address] Jose Delgado Facility:[id number] Start: 08-06-2022 Rx Renewal Radha Cary Work Phone: [place] [facility] Work Phone: Start: 07-11-2022 Office outpatient vi sit 15 minutes Radha Cary Work Phone: [facility] [employer] Work Phone: Start: 07-11-2022 ambulatory Radha Cary Facility:[id number] Start: 07-05-2022 End: 07-06-2022 Emergency department patient visit William Cerda [facility] Emergency 03 Start: 07-05-2022 Chart Update Radha Cary Work Phone: [place] [address] [employer] Work Phone: Start: 07-04-2022 ambulatory CORE LAYER MACHINE OPERATOR RADHA CARY Fac ility:[id number] Start: 06-28-2022 Chart Update Radha Cary Work Phone: [place] [address] [employer] Work Phone: Start: 06-27-2022 Office outpatient vi sit 15 minutes Radha Cary Work Phone: [place] [address] [employer] Work Phone: Start: 06-27-2022 ambulatory Radha Cary Facility:[id number] Start: 05-03-2022 AUDIT Keara Mckenzie Work Phone: [facility] 205 DO Work Phone: Start: 04-04-2022 Office outpatient vi sit 15 minutes Radha Cary Work Phone: [facility] 205 DO Work Phone: Start: 04-04-2022 Patient encounter procedure Radha Cary Work Phone: [facility] 205 DO Work Phone: Start: 04-04-2022 ambulatory Radha Cary Facility:[id number] Start: 03-07-2022 Office outpatient ne w 45 minutes Radha Cary Work Phone: [place] [facility] Work Phone: Start: 01-23-2022 Chart Update Valencia Lin user Work Phone: [place] [address] [employer] Work Phone: Start: 01-22-2022 AUDIT Valencia Lin user Work Phone: [facility] [address] Work Phone: Start: 01-19-2022 Office outpatient vi sit 25 minutes Valencia Surinder Melvinjeffreyer Work Phone: [facility] [address] Work Phone: Start: 01-16-2022 Patient encounter procedure Valencia Surinder Melvinjeffreyer Work Phone: [email or web address] [address] Work Phone: Start: 01-08-2020 Patient encounter procedure [facility] [address] Work Phone: Start: 11-19-2019 Patient encounter procedure Keara Mckenzie [facility] [address] Work Phone: Start: 11-12-2019 Patient encounter procedure Keara Mckenzie [email or web address] [address] Work Phone: Start: 11-05-2019 Patient encounter procedure Keara Mckenzie [facility] [address] Work Phone: Start: 10-29-2019 Patient encounter procedure Keara Mckenzie [facility] [address] Work Phone: Start: 10-22-2019 Patient encounter procedure Keara Mckenzie [facility] [address] Work Phone: Start: 10-08-2019 Patient encounter procedure Keara Mckenzie [facility] [address] Work Phone: Start: 09-21-2019 Patient encounter procedure Keara Mckenzie [facility] [address] Work Phone: Menarche Valencia Charlesjeffrey er Work Phone: [facility] [address] Work Phone: Comment on above: AGE 11; Procedures Date Procedure Procedure Detail Performing Clinician Start: 02-24-2025 Hepatitis C antibody measurement Radha Cary PILE HEADER-C Work Phone: Comment on above: Reactive: Presumptiv e evidence of antibodies to HCV. Follow CDC recommendations for supplemental testing.Non-Reactive: Antibodies to HCV were not detected; does not exclude the possibility of exposure to HCVReactive Results are presumptive evidence of antibodies to HCV. Follow CDC recommendations for supplemental testing.Order confirmation testing: HCV Quant by PCR testing - HCVPCR #[id number] Non Reactive: < 0.8 Equivocal: >/= 0.8 to < 1.0 Reactive: >/= 1.0The CDC requires that a reactive/equivocal HCV antibody result be sent out for confirmation. HCV Quant by PCR testing. Start: 02-24-2025 Procedure Radhacherie cruz PILE HEADER-C Work Phone: Start: 02-24-2025 Rubella IgG measurement Radha Cary PILE HEADER-C Work Phone: Comment on above: Antibody Result: Int erpretationNon-Reactive: Non- ImmuneReactive: ImmuneThe following results were obtained with the [employer] Rubella IgG assay. Results from assays of other manufacturers cannot be used interchangeably. Start: 02-24-2025 Serologic test for syphilis Radha Luis Daniel PILE HEADER-C Work Phone: Start: 02-01-2025 Liquid based cervica l cytology screening Radha Cary PILE HEADER-C Work Phone: Comment on above: NEGATIVE FOR INTRAEP ITHELIAL LESION OR MALIGNANCY. This liquid based Th inPrep(R) pap test was screened withthe use of an image guided system. The HPV DNA reflex c riteria were not met with this specimenresult therefore, no HPV testing was performed.Performed at: - [address] [id number] Director: Liv Meier MD, Phone: [phone] Start: 02-01-2025 Urine culture Radha Arun zuniga PILE HEADER-C Work Phone: Start: 01-31-2025 Urinalysis microscop ic panel - Urine Qualitative by Automated Lorenza Jeter PA-C Work Phone: Start: 01-31-2025 Urnls dip stick/tabl et reagent auto microscopy Lorenza Jeter PA-C Work Phone: Start: 01-31-2025 Comprehensive metabo lic panel Lorenzaeugenie Jeter PA-C Work Phone: Start: 01-28-2025 Transvaginal obstetr ic ultrasonography Radha Cary PILE HEADER-C Work Phone: Start: 10-30-2024 Urine test visual color cmprsn meths Emily Orrrocco PA-C Work Phone: Start: 10-30-2024 Basic metabolic pane l calcium total Emily Orrrocco PA-C Work Phone: Start: 07-06-2024 Us preg uterus real time w/image dcmtn transvag Jose Delgado MD Work Phone: Start: 07-06-2024 Urine test visual color cmprsn meths Jose Delgado MD Work Phone: Start: 03-05-2024 Colonoscopy w/biopsy single/multiple Forrest Mohr MD Work Phone: Start: 01-30-2024 Ct abdomen & pelvis w/contrast material Shae Pastor DO Work Phone: Start: 01-30-2024 Urnls dip stick/tabl et rgnt auto w/o microscopy Shae Pastor DO Work Phone: Start: 01-30-2024 Comprehensive metabo lic panel Shae Pastor DO Work Phone: Start: 12-27-2022 End: 12-27-2022 EKG impression [employer] Start: 11-06-2022 End: 11-06-2022 EKG impression Stephanie Hudec Start: 10-21-2022 Antibody screen Stephanie Cliff sanchez Comment on above: Performed By: #### T +S ####[facility] [place] [address] Start: 10-08-2019 Culture bacterial quanttative colony count urine [facility] [place] Start: 09-21-2019 Glucose Tolerance, 3hr PREG [facility] [place] Tonsillectomy [facility] [place] Plan of Treatment Date Care Activity Detail Author Start: 2049 Zoster Vaccines (1 of 2) Zoste r Vaccines (1 of 2) [facility] Start: 07-08-2025 RSV High Risk: (Elde rly (60+) or Population) (1 - Risk 1-dose series) RSV High Risk: (Elderly (60+) or Population) (1 - Risk 1-dose series) [facility] Start: 05-31-2025 Influenza vaccination Influenz a Vaccine (Season Ended) [facility] Start: 02-24-2025 CBC W Auto Different ial panel - Blood [facility] Start: 02-24-2025 Hepatitis C antibody measurement [facility] Start: 02-24-2025 Rubella IgG measurement [facility] Start: 02-24-2025 Serologic test for syphilis [facility] Start: 02-24-2025 [facility] Start: 02-24-2025 Procedure [facility] Start: 02-10-2025 End: 02-10-2025 Patient encounter procedure 02/10/2025 8:20 AM EDT Routine [facility] [address] [place] [address] Lorenza Brennan MD [address] [place], [place] [id number] [facility] Start: 02-01-2025 Liquid based cervica l cytology screening [facility] Start: 07-27-2024 End: 07-27-2024 Patient encounter procedure 07/27/2024 1:15 PM EDT Routine [facility] [address] [place] [address] Jose Delgado MD [address] [facility] [address] [place] [address] [facility] Start: 07-06-2024 End: 07-06-2024 Professional / ancillary services management 07/06/2024 2:10 PM EDT Ancillary Procedure [facility] [address] [place] [address] [facility] Start: 05-31-2024 COVID-19 Vaccine ( season) COVID-19 Vaccine ( season) [facility] Start: 05-31-2024 Covid-19 Vaccine ( season) Covid-19 Vaccine () [facility] Start: 05-31-2024 Influenza vaccination [facility] Start: 03-12-2024 End: 03-12-2024 Patient encounter procedure 03/12/2024 2:45 PM EDT Office Visit [facility] [address] [place] [address] Forrest Mohr MD [address] [place] [address] [facility] Start: 03-01-2024 End: 01-29-2025 Colonoscopy study Colonoscopy Diagnostic Endoscopy Routine Colitis Expected: 03/01/2024 (Approximate), Expires: 01/29/2025 [facility] Service Area Work Phone: Comment on above: Expected: 03/01/2024 (Approximate), Expires: 01/29/2025 Start: 01-30-2024 End: 01-30-2024 Patient encounter procedure 01/30/2024 3:45 PM EDT Office Visit [facility] Internal Medicine [address] [place] [address] Forrest Mohr MD [address] [place] [address] [facility] Internal [facility] Start: 01-30-2024 End: 03-01-2024 Clostridioides difficile toxin A+B tcdA+tcdB genes [Presence] in Stool by YOEL with probe detection C. difficile, PCR Microbiology Routine Colitis Expected: 01/30/2024 (Approximate), Expires: 03/01/2024 [facility] Work Phone: Comment on above: Expected: 01/30/2024 (Approximate), Expires: 03/01/2024 Start: 05-31-2023 COVID-19 Vaccine ( season) COVID-19 Vaccine () [facility] Start: 05-31-2023 Influenza vaccination [facility] Start: 10-30-2022 EPVOB, Provider: Jose Delgado, Status: Pen, Time: 1:00 PM EPVOB, Provider: Jose Delgado, Status: Pen, Time: 1:[address] Work Phone: Start: 10-23-2022 EPVOBINTL, Provider: Jose Delgado, Status: Pen, Time: 1:45 PM EPVOBINTL, Provider: Jose Delgado, Status: Pen, Time: 1:[address] Work Phone: Start: 10-23-2022 Patient encounter procedure Ou [facility] Start: 23-Oct-2022 13:45 Jose Delgado R Intent [facility] Start: 10-03-2022 EPV, Provider: Radha Cary, Status: Pen, Time: 3:00 PM EPV, Provider: Radha Cary, Status: Pen, Time: 3:00 PM [facility] 205 DO Work Phone: Start: 10-03-2022 Patient encounter procedure [facility] Start: 08-13-2022 NEWPROB, Provider: Jose Delgado, Status: Pen, Time: 2:15 PM NEWPROB, Provider: Jose Delgado, Status: Pen, Time: 2:15 PM [facility] Work Phone: Start: 07-11-2022 FUV, Provider: Keara Mckenzie, Status: Pen, Time: 3:15 PM FUV, Provider: Keara Mckenzie, Status: Pen, Time: 3:15 PM [address] Work Phone: Start: 07-11-2022 Patient encounter procedure [facility] Start: 04-20-2022 FUV, Provider: Keara Mckenzie, Status: Pen, Time: 1:15 PM FUV, Provider: Keara Mckenzie, Status: Pen, Time: 1:[address] [facility] [employer] Work Phone: Start: 04-04-2022 EPV, Provider: Radha Cary, Status: Pen, Time: 3:00 PM EPV, Provider: Radha Cary, Status: Pen, Time: 3:00 PM [place] [facility] Work Phone: Start: 01-19-2022 NEWPROB, Provider: Keara Mckenzie, Status: Pen, Time: 1:00 PM NEWPROB, Provider: Keara Mckenzie, Status: Pen, Time: 1:00 PM [place] [address] [employer] Work Phone: Start: 2021 DTaP/Tdap/Td Vaccine s (1 - Tdap) DTaP/Tdap/Td Vaccines (1 - Tdap) [facility] Start: 2020 Screening for malign ant neoplasm of cervix [facility] Start: 2018 Hepatitis B Vaccine (1 of 3 - 19+ 3-dose series) Hepatitis B Vaccine (1 of 3 - 19+ 3-dose series) [facility] Start: 2018 Hepatitis B Vaccines (1 of 3 - 19+ 3-dose series) Hepatitis B Vaccines (1 of 3 - 19+ 3-dose series) [facility] Start: 2018 Pneumococcal Vaccine : Pediatrics and At-Risk Adult Patients (1 of 2 - PCV) Pneumococcal Vaccine: Pediatrics and At-Risk Adult Patients (1 of 2 - PCV) [facility] Start: 2018 Urine microalbumin profile DTa P,Tdap,Td Vaccine (1 - Tdap) [facility] Start: 2017 Anxiety Screening Anxiety Screening [facility] Start: 2017 Depression Screening Depression Scre ening [facility] Start: 2017 Hepatitis C screening Hepatitis C [place] celine [facility] Start: 2017 HIV screening HIV Screening [facility] Start: 2014 HPV Vaccine (1 - 3-d ose series) HPV Vaccine (1 - 3-dose series) [facility] Start: 2014 HPV Vaccines (1 - 3- dose series) HPV Vaccines (1 - 3-dose series) [facility] Start: 2013 Peds To Adult Transi tion Annual Assessment Peds To Adult Transition Annual Assessment [facility] Start: 2012 Varicella vaccination Varicell a Vaccines (1 of 2 - 13+ 2-dose series) [facility] Start: 2011 Peds To Adult Transi tion Initial Discussion Peds To Adult Transition Initial Discussion [facility] Start: 2010 HPV Vaccines (1 - 2- dose series) HPV Vaccines (1 - 2-dose series) [facility] Start: 2000 Hepatitis A Vaccines (1 of 2 - Risk 2-dose series) Hepatitis A Vaccines (1 of 2 - Risk 2-dose series) [facility] Start: 2000 MMR Vaccines (1 of 1 - Standard series) MMR Vaccines (1 of 1 - Standard series) [facility] Start: 2000 Varicella vaccination Varicell a Vaccines (1 of 2 - 2-dose childhood series) [facility] Start: 1999 COVID-19 Vaccine (#1) COVID-19 Vacci ne (#1) [facility] Start: 1999 Hepatitis B Vaccines (1 of 3 - 3-dose series) Hepatitis B Vaccines (1 of 3 - 3-dose series) [facility] Start: 1999 HIV screening HIV Screening [facility] Start: 1999 Lipid panel Lipid Panel [facility] Start: 1999 Yearly Adult Physical Yearly Adult P hysical [facility] End: 01-31-2025 Bacteria identified in Urine by Culture [facility] Work Phone: Comment on above: Once (Lab) for 1 Occ urrences starting 01/31/2025 until 01/31/2025 CBC W Auto Different ial panel - Blood [facility] Choriogonadotropin ( test) [Presence] in Serum or Plasma [facility] End: 03-05-2024 Choriogonadotropin ( test) [Presence] in Urine POCT , urine manually resulted Point of Care Testing Routine Once (Lab) for 1 Occurrences starting 03/05/2024 until 03/05/2024 [facility] Work Phone: Comment on above: Once (Lab) for 1 Occ urrences starting 03/05/2024 until 03/05/2024 Erythrocyte mean cor puscular volume determination [facility] End: 01-30-2024 Extra Urine [employer] [facility] Work Phone: Comment on above: Once for 1 Occurrenc es starting 01/30/2024 until 01/30/2024 End: 01-31-2025 Extra Urine [employer] [facility] Work Phone: Comment on above: Once for 1 Occurrenc es starting 01/31/2025 until 01/31/2025 Hematocrit [Volume F raction] of Blood [facility] Hemoglobin [Mass/vol ume] in Blood [facility] Hepatitis B virus gauirre rface Ag [Presence] in Serum [facility] Hepatitis C antibody measurement [facility] Leukocytes [#/volume ] in Blood [facility] Mean corpuscular hem oglobin concentration determination [facility] Mean corpuscular hem oglobin determination [facility] End: 03-05-2024 Moderate Sedation Moderate Sedation Procedures Routine Once for 1 Occurrences starting 03/05/2024 until 03/05/2024 [facility] Work Phone: Comment on above: Once for 1 Occurrenc es starting 03/05/2024 until 03/05/2024 Neutrophil count [facility] Neutrophil percent differential count [facility] Platelets [#/volume] in Blood [facility] End: 03-05-2024 Pulse oximetry, continuous Pulse oximetry, continuous Respiratory Care Routine Continuous until discontinued starting 03/05/2024 [facility] Work Phone: Comment on above: Continuous until dis continued starting 03/05/2024 End: 03-05-2024 Pulse oximetry, spot Pulse oximetry, spot Respiratory Care Routine Once for 1 Occurrences starting 03/05/2024 until 03/05/2024 [facility] Service Area Work Phone: Comment on above: Once for 1 Occurrenc es starting 03/05/2024 until 03/05/2024 Red blood cell count [facility] Red cell distributio n width determination [facility] Rubella IgG measurement [facility] Serologic test for syphilis [facility] Surgical pathology study [facility] Work Phone: Comment on above: Release Upon Orderin g for 1 Occurrences starting 03/05/2024 End: 01-30-2024 Urinalysis complete W Reflex Culture panel - Urine [facility] Service Area Work Phone: Comment on above: STAT (Lab) for 1 Occ urrences starting 01/30/2024 until 01/30/2024 End: 01-31-2025 Urinalysis complete W Reflex Culture panel - Urine [facility] Service Area Work Phone: Comment on above: Once (Lab) for 1 Occ urrences starting 01/31/2025 until 01/31/2025 End: 10-30-2024 US Pelvis US pelvis Imaging STAT Once for 1 Occurrences starting 10/30/2024 until 10/30/2024 [facility] Service Area Work Phone: Comment on above: Once for 1 Occurrenc es starting 10/30/2024 until 10/30/2024 [facility] Payers Date Payer Category Payer Self-pay 2023 Medicaid [facility] MEDICAID [facility] COMM[employer] PLAN MEDICAID [facility] [id number] 2023-Present [phone] [address] [place] [address] Medicaid [id number] 2022 Unknown 2022 Medicaid (Managed Care) [facility] [id number] 2022 Private Health Insurance [facility] [id number] 2022-Present [address] [place] [address] [id number]. [id number] 2022 Private Health Insurance [id number] 1999 Unknown [id number] 2.16840.1.234507.3.579.2. 1068 1999 Unknown [id number] 2.16840.1.273493.3.579.2. 1068 1999 Unknown [id number] 2.16840.1.541685.3.579.2. 1068 1999 Unknown [id number] 2.16.840.1.182053.3.579.2. 1068 1999 Unknown [id number] 2.16840.1.797807.3.579.2. 1068 1999 Unknown [id number] 2.16.840.1.470590.3.579.2. 1068 1999 Unknown [id number] 2.16.840.1.253091.3.579.2. 1068 1999 Unknown [id number] 2.16.840.1.942837.3.579.2. 1999 Unknown [id number] 2.16.840.1.031522.3.579.2. 1999 Unknown [id number] 2.16840.1.372602.3.579.2. 356 1999 Unknown [id number] 2.16.840.1.402115.3.579.2. 356 1999 Unknown [id number] 2.16.840.1.815435.3.579.2. 356 1999 Unknown [id number] 2.16.840.1.391532.3.579.2. 356 1999 Unknown [id number] 2.16.840.1.081085.3.579.2. 356 1999 Unknown [id number] 2.16.840.1.805056.3.579.2. 356 1999 Unknown [id number] 2.16.840.1.830980.3.579.2. 356 1999 Unknown [id number] 2.16.840.1.926216.3.579.2. 1999 Unknown [id number] 2.16.840.1.295642.3.579.2. 356 1999 Unknown [id number] 2.16840.1.845630.3.579.2. 1242 1999 Unknown [id number] 2.16.840.1.256071.3.579.2. 1242 1999 Unknown [id number] 2.16.840.1.262756.3.579.2. 1242 1999 Unknown [id number] 2.16840.1.822367.3.579.2. 1242 1999 Unknown [id number] 2.16.840.1.388165.3.579.2. 1243 1999 Unknown [id number] 2.16.840.1.154797.3.579.2. 1243 1999 Unknown [id number] 2.16.840.1.122725.3.579.2. 479 Medicaid [id number] Private Health Insurance [id number] Unknown [id number] Unknown [id number] Unknown [id number] 2.16.840.1.250521.3.579.2. 462 Unknown [id number] 2.16.840.1.298763.3.579.2. 462 Unknown [id number] 2.16.840.1.496466.3.579.2. 462 Unknown [id number] 2.16.840.1.845299.3.579.2. 462 Unknown [id number] 2.16.840.1.640723.3.579.2. 462 Unknown [id number] 2.16.840.1.033084.3.579.2. 462 Unknown [id number] 2.16.840.1.377271.3.579.2. 462 Unknown [id number] 2.16.840.1.414807.3.579.2. 462 Unknown [id number] 2.16.840.1.985133.3.579.2. 462 Unknown [id number] 2.16.840.1.956075.3.579.2. 462 Unknown [id number] 2.16.840.1.876737.3.579.2. 462 Social History Date Type Detail Facility Start: 01-23-2023 End: 01-13-2025 Occasional alcohol use Occasional alcohol use [facility] Tobacco smoking consumption unknown [facility] Start: 2000 Sex Assigned At Female W [facility] Start: 01-23-2023 Tobacco smoking status NHIS Never smoked tobacco [facility] Work Phone: Start: 01-23-2023 End: 07-06-2024 Tobacco use and exposure Smokeless tobacco non-user [facility] Work Phone: Start: 01-23-2023 End: 01-13-2025 Tobacco use panel [facility] Start: 2000 [facility] Work Phone: Start: 10-29-2023 End: 03-05-2024 Alcohol intake Current drinker of alcohol (finding) [facility] Work Phone: Start: 10-29-2023 Alcohol Comment rare [facility] Work Phone: Start: 10-19-2023 End: 01-31-2025 Exposure to SARS-CoV-2 (event) Not sure [facility] Start: 01-30-2024 Gender identity Identifies as female gender (finding) [facility] Work Phone: Start: 07-06-2024 End: 01-22-2025 Tobacco smoking status NHIS Smokes tobacco daily [facility] Work Phone: Start: 07-06-2024 End: 01-31-2025 Alcoholic beverage intake Ex-drinker (finding) [facility] Work Phone: Start: 07-06-2024 Tobacco Comment I have a vape [facility] Work Phone: National Score (1-100), lower number is lower risk [address] [place] [address] The thought of harming myself has occurred to me Never [facility] Work Phone: Start: 12-10-2024 [facility] Work Phone: NEGATED: Highlighted row - - [employer] Work Phone: Functional Status Date Assessment Result Facility 01-31-2025 [place] - suicide severity rating scale screener - recent [C-SSRS] [facility] Work Phone: NEGATED: Highlighted row Functional performance Functional status health issues are not documented Disease [facility] [employer] Work Phone: Mental Status Date Assessment Result Facility NEGATED: Highlighted row Cognitive function [Interpretation] Cognitive status health issues are not documented Disease [place] [address] [employer] Work Phone: Clinical Notes 06-30-2022 to 04-23-2025 Note Date & Type Note Facility 04-23-2025 Progress note [facility] 02-24-2025 Progress note [facility] 02-24-2025 Progress note Note Date/Time February 24, 2025 2:39pm [facility] [address], [address] [place] [address] OFFICE VISIT Date of Service: 02/24/25 MR#: [id number] Acct: [id number] Name: DEBI VERDUZCO Rep #: [id number] : 2000 Provider: Dr. Nica Villalobos DO Age/Sex: 24/F Location[place] [facility] Status: Signed Intake Vital Signs 01/05/25 08:45 02/19/25 14:36 02/24/25 13:57 Height 5 ft 5 in 5 ft 5 in 5 ft 5 in Weight: 137 lb BMI 22.8 BP 97/62 Intake Visit Reasons: 13wk ob Director Of Archives Required: No Is patient in pain?: No Allergies No Known Allergies Allergy (Verified 02/24/25 13:58) Medications ?Medication ?Instructions ?Recorded ?Confirmed ?Type vits no.130-ferrous fum 1 tab PO QDAY 5 02/24/25 History 27 mg iron-folic acid 800 mcg tablet ( Vitamin) doxylamine succinate 25 mg tablet 25 mg PO QHS PRN 02/24/25 History (Unisom (doxylamine)) ondansetron HCl 4 mg tablet 4 mg PO Q6H PRN 01/22/25 0 02/24/25 History pyridoxine (vitamin B6) 10 mg 10 mg PO QDAY 01/22/25 0 02/24/25 History tablet albuterol sulfate 90 mcg/actuation 2 puff inhalation Q 4-6H PRN 02/24/25 02/24/25 Rx aerosol inhaler (Ventolin HFA) shortness of breath or wheezing #6.7 grams Last Menstrual Period: 11/26/24 Zika: Zika virus screening: Negative : No PFSH PFSH Surgical History S/P tonsillectomy and adenoidectomy Social History adopted: No household members: significant other and children number of children: 1 current occupation: [employer] current occupational exposures/hazards: No pets and animals: Yes (Not managing litterbox) pets and animals: cat(s) history of recent travel: No sexually active: Yes Smoking Status: Current every day smoker tobacco type: e-cigarettes quit status: not considering quitting alcohol intake: current alcohol intake frequency: holidays/special occasions only details: Not while substance use type: does not use well-balanced diet: daily or most days caffeine: Yes Type: carbonated beverages Number of servings: 1 eating out: 1-3 times/week during the past year weight has: remained stable what type of physical activity do you participate in: none dania/mormon: None seatbelt use: never do you feel safe at home: Yes additional social history: Boyfriend: Johny - Works at [employer] History 2 4 Elective abortions Hx Para 1 Spontaneous abortions 2 Hx # Term Pregnancies 1 Ectopic pregnancies Hx # Pregnancies Multiple births # of living children 1 Past Pregnancies Del. Date Name GA/Weeks Outcome Route Bth Weight Infant Gen Labor Lgth Anesthesia Del Locatn Provider FOB 11/23/19 Nathalie 39 live - full term 6lbs 12oz Female epidural [facility] Johny 09/30/21 8 spontaneous 07/08/24 8 spontaneous Delivery Date: 11/23/19 Last Updated by: Tamar Chan RN No complications - Induced d/t discomfort HPI 13wk ob Details: DEBI VERDUZCO is a 24 year old who presents for routine OB visit. OB Visit MYRON Calculator Estimated Delivery Date Method Current WG Current Estimate 09/02/25 LMP (Certain) 12w 6d Other Estimates 09/02/25 Ultrasound #1 12w 6d 09/02/25 Ultrasound #2 12w 6d Expected Delivery Route/Plan Labor Preferences- CB/BF classes: [] labor support person: [] labor intervention preferences: [] pain management options preferred: [] cut cord/dad catch: [] : [] PP control planned: [] discussed possible routes of delivery and associated risks: [] special requests: [] Specific Issue/Plans Covid status: [] Flu vaccine: [] Tdap vaccine: [] Rhogam: [] LARC form signed: [] Problem list reviewed and updated with the most current plan of care details and appropriate orders placed. Relevant counseling for the gestational age provided. Continue routine care and follow up unless otherwise noted in visit notes/problem list details Initial Weight: 138 lb Date -?-?-?-?-?-?-?-?-?-?-?-?- EGA Weight BP Urine Prot -?-?-?-?-?-?-?-?-?-?-?-?- Glucose FHR FuHt Pres Dilation -?-?-?-?-?-?-?-?-?-?-?-?- Effaced St Visit Note 02/01/25 -?-?-?-?-?-?-?-?-?-?-?-?- 9w 4d 138 lb (+0 oz) 109/71 -?-?-?-?-?-?-?-?--?-?-?-?- 186 -?-?-?-?-?-?-?-?-?-?-?-?- KW- CRL cons wit h dates. accepts NIPT. had last baby at [place]-no complications. KW- CRL cons with dates. acc epts NIPT. had last baby at [place]-no complications. having significant nausea and vomiting. standing order for IV infusions 02/19/25 -?-?-?-?-?-?-?-?-?-?-?-?- 12w 1d 137 lb 2 oz (-14 oz) 120/80 Negative -?-?-?-?-?-?-?-?-?-?-?-?- Negative 174 -?-?-?-?-?-?-?-?-?-?-?-?- JV- CRL measurin g 12 weeks 2 days, pt seen for leaking fluid. no bleeding or infection signs on exam. ultrasound looks normal. wats NIPT today. 05/28/25 -?-?-?-?-?-?-?-?-?-?-?-?- 12w 6d 137 lb (-16 oz) 97/62 Negative -?-?-?-?-?-?-?-?-?-?-?-?- Negative 164 -?-?-?-?-?-?-?-?-?-?-?-?- JV- patient comp lains of cough and heaviness in chest. Her mom thinks she may have an ear infection but patient states that this is not true.recommend mucinex x 24 hours, if no improvement recommend ear exam at urgent care or pcp. albuterol ordered. new ob labs today. ACOG First Trimester First Trimester: Desire for , Alcohol, Tobacco Cessation, Illicit/Recreational Drug/Substance Use, Intimate Partner Violence, Barriers to care, Anticipated Course of Care, Use of Any medications, Sexual activity, Exercise, Dental Care, Sauna/Hot tub use, Seat Belt use, Childbirth classes/Hospital facilities, Travel, Indications for Ultrasound and Screening for Aneuploidy; Discussed Unstable Housing, Discussed Communication Barriers, Discussed Environmental/Work Hazards, Discussed Toxoplasmosis Precations and Discussed Second Trimester Second Trimester: Signs and Symptoms of Labor, Selecting a care provider, Reproductive Life Planning & Contreception, Care Planning, Depression/Anxiety and Intimate Partner Violence; Discussed Tobacco Cessation Third Trimester Third Trimester: Pain Management Plans, Labor support person(s), Immediate Larc, Signs and Symptoms of Preeclampsia, Infant Feeding No , Education and Family Medical Leave or Disability Forms ROS Const Denies fever(s) GI Reports as per HPI and Denies abdominal pain Reports as per HPI, Denies abnormal vaginal bleeding, Denies dysuria and Denies vaginal discharge Exam Const General: healthy appearing, comfortable and no acute distress GI Inspection: normal to inspection Palpation: soft and nontender Results POC Urinalysis 2 Dip (Clinic) Office Urine Glucose Negative Last Edit by Krystyna Knapp on 02/24/25 14: 14 Office Urine Protein Negative Last Edit by Krystyna Knapp on 02/24/25 14: 14 Coding Level of Care Code Off vis,est,level 3 Diagnoses History of miscarriage, currently O09.299 Supervision of high-risk O09.90 12 weeks gestation of Z3A.12 Weeks of gestation: 12 weeks Anxiety and depression F41.9; F32.A Assessment and Plan Assessment and Plan (1) History of miscarriage, currently : Status: Acute Comment: x2 (2) Supervision of high-risk : Status: Acute Comment: , MYRON 09/02/25, PC: Nathalie, BF: Johny (3) : Status: Acute Qualifiers: Weeks of gestation: 12 weeks Qualified Code(s): Z3A.12 - 12 weeks gestation of Comment: accepts genetic/carrier testing (4) Anxiety and depression: Status: Acute Comment: was on Lexapro - stopped awhile ago Orders: Orders POC Urinalysis 2 Dip (Clinic) Today Medications: New albuterol sulfate 90 mcg/actuation (Ventolin HFA) 2 puffs inhalation Q4-6H PRN 6.7 grams 0RF shortness of breath or wheezing 02/24/25 1439 <Electronically signed by Colleen Herrera DO> Date _ Colleen Villalobos DO Cosigner Signature: Date (if applicable) CC: ~ [facility] Work Phone: [phone] 602-460405-04-2025 Emergency department Note* Lorenza Jeter PA-C - 01/31/2025 8:36 PM EDT HPI Chief Complaint Patient presents with Vomiting During Pt is 9 weeks has been vomiting all day, unable to keep water down. Pt has zofran but did not take it today because it hasn't been helping. I feel dehydrated and weak. Patient presents with ongoing morning sickness. States that she has had morning sickness since she found out she was . She is approximately 10 weeks. She has an established IUP per her OB. She is not having a bleeding or cramping. No dysuria frequency or urgency. No back pain. Patient states that left today she just has not been able to keep anything down and was worried that she was getting dehydrated. History provided by: Patient Patient History Medical History[1] Surgical History[2] Family History[3] Social History[4] Physical Exam ED Triage Vitals [01/31/25 1831] Temperature Heart Rate Respirations BP 36.4 C (97.5 F) 89 18 118/65 Pulse Ox Temp src Heart Rate Source Patient Position 96 % -- -- -- BP Location FiO2 (%) -- -- Physical Exam Vitals and nursing note reviewed. Constitutional: General: She is not in acute distress. Appearance: Normal appearance. She is well-developed, well-groomed and normal weight. She is not ill-appearing, toxic-appearing or diaphoretic. HENT: Head: Normocephalic. Nose: Nose normal. Mouth/Throat: Lips: No lesions. Mouth: Mucous membranes are moist. Eyes: General: No scleral icterus. Conjunctiva/sclera: Conjunctivae normal. Cardiovascular: Rate and Rhythm: Normal rate and regular rhythm. Pulses: Dorsalis pedis pulses are 2+ on the right side and 2+ on the left side. Posterior tibial pulses are 2+ on the right side and 2+ on the left side. Heart sounds: Normal heart sounds. Pulmonary: Effort: Pulmonary effort is normal. Breath sounds: Normal breath sounds and air entry. Abdominal: General: Bowel sounds are normal. There is no distension. Palpations: Abdomen is soft. Tenderness: There is no abdominal tenderness. There is no right CVA tenderness, left CVA tendernessor guarding. Musculoskeletal: Right lower leg: No edema. Left lower leg: No edema. Skin: General: Skin is warm. Capillary Refill: Capillary refill takes less than 2 seconds. Neurological: General: No focal deficit present. Mental Status: She is alert and oriented to person, place, and time. Cranial Nerves: No cranial nerve deficit or facial asymmetry. Sensory: No sensory deficit. Motor: No weakness. Gait: Gait normal. Psychiatric: Attention and Perception: Attention and perception normal. Mood and Affect: Mood and affect normal. Speech: Speech normal. Behavior: Behavior normal. Behavior is cooperative. Thought Content: Thought content normal. Cognition and Memory: Cognition and memory normal. Judgment: Judgment normal. ED Course & MDM Diagnoses as of 01/31/252038 Morning sickness ([facility] Urinary tract infection without hematuria, site unspecified No data recorded Medical Decision Making Patient presents with ongoing morning sickness. States that she has had morning sickness since she found out she was . She is approximately 10 weeks. She has an established IUP per her OB. She is not having a bleeding or cramping. No dysuria frequency or urgency. No back pain. Patient states that left today she just has not been able to keep anything down and was worried that she was getting dehydrated. Ddx: Dehydration, electrolyte, infection, other We will obtain basic labs patient given 2 L IV normal saline With IV Zofran Patient had complete resolution of her symptoms Patient's urine was concerning with infection with ketones and white cells with small amount of bacteria. Therefore patient given 1 g of Rocephin IV for asymptomatic bacteriuria in versus UTI. Chemistries were normal. CBC was normal. At this point patient can be safely discharged home with continued antibiotics. To follow-up with her OB as soon as possible to discuss care. Return with any worsening symptoms or concerns. Patient discharged home in improved stable condition Amount and/or Complexity of Data Reviewed Labs: ordered. Decision-making details documented in ED Course. Procedure Procedures [1] Past Medical History: Diagnosis Date Anxiety Chlamydia 01/01/2023 Chlamydial infection, unspecified Chlamydia Depression Mastitis of left breast unrelated to or 01/01/2023 Other conditions influencing health status Menarche Other conditions influencing health status 01/16/2022 History of Personal history of other diseases of urinary system 10/08/2019 History of hematuria Poisoning by drug or medicinal substance 01/01/2023 Suicidal ideation 01/01/2023 [2] Past Surgical History: Procedure Laterality Date OTHER SURGICAL HISTORY 03/07/2022 Tonsillectomy [3] Family History Problem Relation Name Age of Onset Depression Mother Colon cancer Maternal Grandmother Colon cancer Maternal Grandfather [4] Social History Tobacco Use Smoking status: Every Day Smokeless tobacco: Never Tobacco comments: I have a vape Vaping Use Vaping status: Every Day Substances: Nicotine Devices: Disposable, Pre-filled or refillable cartridge Substance Use Topics Alcohol use: Not Currently Comment: rare Drug use: Not Currently Lorenza Jeter PA-C 01/31/252038 documented in this [facility] Work Phone: [phone] Physician Emergency department Note* Lorenza Jeter PA-C - 01/31/2025 8:36 PM EDT HPI Chief Complaint Patient presents with Vomiting During Pt is 9 weeks has been vomiting all day, unable to keep water down. Pt has zofran but did not take it today because it hasn't been helping. I feel dehydrated and weak. Patient presents with ongoing morning sickness. States that she has had morning sickness since she found out she was . She is approximately 10 weeks. She has an established IUP per her OB. She is not having a bleeding or cramping. No dysuria frequency or urgency. No back pain. Patient states that left today she just has not been able to keep anything down and was worried that she was getting dehydrated. History provided by: Patient Patient History Medical History[1] Surgical History[2] Family History[3] Social History[4] Physical Exam ED Triage Vitals [01/31/25 1831] Temperature Heart Rate Respirations BP 36.4 C (97.5 F) 89 18 118/65 Pulse Ox Temp src Heart Rate Source Patient Position 96 % -- -- -- BP Location FiO2 (%) -- -- Physical Exam Vitals and nursing note reviewed. Constitutional: General: She is not in acute distress. Appearance: Normal appearance. She is well-developed, well-groomed and normal weight. She is not ill-appearing, toxic-appearing or diaphoretic. HENT: Head: Normocephalic. Nose: Nose normal. Mouth/Throat: Lips: No lesions. Mouth: Mucous membranes are moist. Eyes: General: No scleral icterus. Conjunctiva/sclera: Conjunctivae normal. Cardiovascular: Rate and Rhythm: Normal rate and regular rhythm. Pulses: Dorsalis pedis pulses are 2+ on the right side and 2+ on the left side. Posterior tibial pulses are 2+ on the right side and 2+ on the left side. Heart sounds: Normal heart sounds. Pulmonary: Effort: Pulmonary effort is normal. Breath sounds: Normal breath sounds and air entry. Abdominal: General: Bowel sounds are normal. There is no distension. Palpations: Abdomen is soft. Tenderness: There is no abdominal tenderness. There is no right CVA tenderness, left CVA tendernessor guarding. Musculoskeletal: Right lower leg: No edema. Left lower leg: No edema. Skin: General: Skin is warm. Capillary Refill: Capillary refill takes less than 2 seconds. Neurological: General: No focal deficit present. Mental Status: She is alert and oriented to person, place, and time. Cranial Nerves: No cranial nerve deficit or facial asymmetry. Sensory: No sensory deficit. Motor: No weakness. Gait: Gait normal. Psychiatric: Attention and Perception: Attention and perception normal. Mood and Affect: Mood and affect normal. Speech: Speech normal. Behavior: Behavior normal. Behavior is cooperative. Thought Content: Thought content normal. Cognition and Memory: Cognition and memory normal. Judgment: Judgment normal. ED Course & MDM Diagnoses as of 01/31/252038 Morning sickness ([facility]) Urinary tract infection without hematuria, site unspecified No data recorded Medical Decision Making Patient presents with ongoing morning sickness. States that she has had morning sickness since she found out she was . She is approximately 10 weeks. She has an established IUP per her OB. She is not having a bleeding or cramping. No dysuria frequency or urgency. No back pain. Patient states that left today she just has not been able to keep anything down and was worried that she was getting dehydrated. Ddx: Dehydration, electrolyte, infection, other We will obtain basic labs patient given 2 L IV normal saline With IV Zofran Patient had complete resolution of her symptoms Patient's urine was concerning with infection with ketones and white cells with small amount of bacteria. Therefore patient given 1 g of Rocephin IV for asymptomatic bacteriuria in versus UTI. Chemistries were normal. CBC was normal. At this point patient can be safely discharged home with continued antibiotics. To follow-up with her OB as soon as possible to discuss care. Return with any worsening symptoms or concerns. Patient discharged home in improved stable condition Amount and/or Complexity of Data Reviewed Labs: ordered. Decision-making details documented in ED Course. Procedure Procedures [1] Past Medical History: Diagnosis Date Anxiety Chlamydia 01/01/2023 Chlamydial infection, unspecified Chlamydia Depression Mastitis of left breast unrelated to or 01/01/2023 Other conditions influencing health status Menarche Other conditions influencing health status 01/16/2022 History of Personal history of other diseases of urinary system 10/08/2019 History of hematuria Poisoning by drug or medicinal substance 01/01/2023 Suicidal ideation 01/01/2023 [2] Past Surgical History: Procedure Laterality Date OTHER SURGICAL HISTORY 03/07/2022 Tonsillectomy [3] Family History Problem Relation Name Age of Onset Depression Mother Colon cancer Maternal Grandmother Colon cancer Maternal Grandfather [4] Social History Tobacco Use Smoking status: Every Day Smokeless tobacco: Never Tobacco comments: I have a vape Vaping Use Vaping status: Every Day Substances: Nicotine Devices: Disposable, Pre-filled or refillable cartridge Substance Use Topics Alcohol use: Not Currently Comment: rare Drug use: Not Currently Lorenza Jeter PA-C 01/31/252038 [facility] Work Phone: [phone]) [phone] Evaluation note* Diagnosis Onset Date Resolution Status Admit Date Amenorrhea inactive January 05 8:38am Anxiety and depression acute Ma y 2024 12:58pm History of miscarriage, currently acute February 01, 2025 12:58pm acute February 01, 2025 12:58pm Supervision of high-risk acute February 01, 2025 12 :58pm [facility] Work Phone: [phone] Evaluation note* Diagnosis Onset Date Resolution Status Admit Date Amenorrhea inactive January 05 8:38am Anxiety and depression acute Ma y 2024 12:58pm History of miscarriage, currently acute February 01, 2025 12:58pm acute February 01, 2025 12:58pm Supervision of high-risk acute February 01, 2025 12 :58pm Anxiety and depression acute Ma y 2024 2:29pm History of miscarriage, currently acute February 19 2:29pm acute February 19, 2025 2:29pm Supervision of high-risk acute February 19, 2025 2 :29pm Anxiety and depression acute Ma y 2024 1:46pm History of miscarriage, currently acute February 24 1:46pm acute February 24, 2025 1:46pm Supervision of high-risk acute February 24, 2025 1 :46pm [facility] Work Phone: [phone] Evaluation note* Diagnosis Onset Date Resolution Status Admit Date Amenorrhea inactive January 05 8:38am Anxiety and depression acute Ma y 2024 12:58pm History of miscarriage, currently acute February 01, 2025 12:58pm acute February 01, 2025 12:58pm Supervision of high-risk acute February 01, 2025 12 :58pm Anxiety and depression acute Ma y 2024 2:29pm History of miscarriage, currently acute February 19 2:29pm acute February 19, 2025 2:29pm Supervision of high-risk acute February 19, 2025 2 :29pm Anxiety and depression acute Ma y 2024 1:46pm History of miscarriage, currently acute February 24 1:46pm acute February 24, 2025 1:46pm Supervision of high-risk acute February 24, 2025 1 :46pm Anxiety and depression acute ne 2024 1:31pm History of miscarriage, currently acute March 25 1:31pm acute March 25 1:31pm Supervision of high-risk acute March 25, 2025 1:31pm [facility] Work Phone: [phone] Evaluation note* Diagnosis Onset Date Resolution Status Admit Date Amenorrhea inactive January 05 8:38am Anxiety and depression acute Ma y 2024 12:58pm History of miscarriage, currently acute February 01, 2025 12:58pm acute February 01, 2025 12:58pm Supervision of high-risk acute February 01, 2025 12 :58pm Anxiety and depression acute Ma y 2024 2:29pm History of miscarriage, currently acute February 19 2:29pm acute February 19, 2025 2:29pm Supervision of high-risk acute February 19, 2025 2 :29pm Anxiety and depression acute Ma y 2024 1:46pm History of miscarriage, currently acute February 24 1:46pm acute February 24, 2025 1:46pm Supervision of high-risk acute February 24, 2025 1 :46pm Anxiety and depression acute 2024 1:31pm History of miscarriage, currently acute March 25 1:31pm acute March 25 1:31pm Supervision of high-risk acute March 25, 2025 1:31pm Anxiety and depression acute 2024 10:39am History of miscarriage, currently acute April 23 10:39am Placenta previa acute March 10:39am acute April 23 10:39am Supervision of high-risk acute April 23, 2025 10:39am [facility] Work Phone: [phone] Hospital Discharge instructions* Discharge Instructions* Emily Claros PA-C - 10/30/2024 12:25 PM EST It was recommended that you have a pelvic ultrasound to rule out any retained products of conception. You are declining the ultrasound at this time. It is recommended that you have the ultrasound as this can lead to further complications, disability, and any and all unforeseen events and by not having the ultrasound performed you are going against our recommendation.. It is recommended thatyou follow-up with [facility]. Return immediately for any new or worsening symptoms. documented in this [facility] Work Phone: [phone] 330-529501-31-2025 Physician Emergency department Note* Emily Claros PA-C - 10/30/2024 11:08 AM EST Patient is a 24-year-old female who presents to the emergency room for vaginal bleeding. Patient states that on July 08 she had an elective . She states that she had bleeding after the procedure which she states she was told would be normal. She states that the bleeding improved. She states that around 2:00 this morning she began to have vaginal bleeding which she thought was just her normal menstrual period. She states that the bleeding is heavier than normal and she is changing an ultra tampon every 1 hour. She complains of lower abdominal cramping and bloating. She denies any fever or chills. No nausea or vomiting. No additional symptoms. Review of Systems Constitutional: Negative for chills and fever. HENT: Negative for ear pain and sore throat. Eyes: Negative for pain and visual disturbance. Respiratory: Negative for cough and shortness of breath. Cardiovascular: Negative for chest pain and palpitations. Gastrointestinal: Negative for abdominal pain and vomiting. Genitourinary: Positive for vaginal bleeding. Negative for dysuria and hematuria. Musculoskeletal: Negative for arthralgias and back pain. Skin: Negative for color change and rash. Neurological: Negative for seizures and syncope. All other systems reviewed and are negative. Physical Exam Vitals and nursing note reviewed. Exam conducted with a shirring machine operator automatic present (Morena Hwang RN). Constitutional: General: She is not in acute distress. Appearance: Normal appearance. She is well-developed. HENT: Head: Normocephalic and atraumatic. Nose: No congestion or rhinorrhea. Eyes: Extraocular Movements: Extraocular movements intact. Conjunctiva/sclera: Conjunctivae normal. Pupils: Pupils are equal, round, and reactive to light. Cardiovascular: Rate and Rhythm: Normal rate and regular rhythm. Heart sounds: No murmur heard. Pulmonary: Effort: Pulmonary effort is normal. No respiratory distress. Breath sounds: Normal breath sounds. No wheezing or rales. Abdominal: General: There is no distension. Palpations: Abdomen is soft. There is no mass. Tenderness: There is no abdominal tenderness. There is no guarding or rebound. Hernia: No hernia is present. Genitourinary: General: Normal vulva. Vagina: No signs of injury. Cervix: No cervical motion tenderness, friability or erythema. Comments: Blood noted in vaginal vault. Cervical os is closed Musculoskeletal: General: No swelling. Cervical back: Normal range of motion and neck supple. No rigidity. Skin: General: Skin is warm and dry. Capillary Refill: Capillary refill takes less than 2 seconds. Neurological: Mental Status: She is alert. Psychiatric: Mood and Affect: Mood normal. Labs Reviewed CBC WITH AUTO DIFFERENTIAL - Abnormal Result Value WBC 4.7 nRBC 0.0 RBC 4.33 Hemoglobin 11.1 (*) Hematocrit 35.1 (*) MCV 81 MCH 25.6 (*) MCHC 31.6 (*) RDW 13.8 Platelets 201 Neutrophils % 64.8 Immature Granulocytes %, Automated 0.2 Lymphocytes % 20.0 Monocytes % 12.2 Eosinophils % 1.9 Basophils % 0.9 Neutrophils Absolute 3.02 Immature Granulocytes Absolute, Automated 0.01 Lymphocytes Absolute 0.93 (*) Monocytes Absolute 0.57 Eosinophils Absolute 0.09 Basophils Absolute 0.04 BASIC METABOLIC PANEL - Abnormal Glucose 87 Sodium 138 Potassium 3.8 Chloride 108 (*) Bicarbonate 24 Anion Gap 10 Urea Nitrogen 5 (*) Creatinine 0.56 eGFR >90 Calcium 8.7 HCG, URINE, QUALITATIVE - Normal HCG, Urine NEGATIVE US pelvis (Results Pending) Procedures Medical Decision Making Patient is a 24-year-old female who presents to the emergency room for chief complaint of abnormal vaginal bleeding. She reports that she had an elective in June, she is approximately 15 weeks status post . She states that she has had intermittent bleeding, the bleeding had stopped and returned around 2:00 this morning in which she reports is heavy. She reports abdominal cramping. Urine test obtained which is negative. CBC and BMP also performed, since hemoglobin is slightly low at 11.1. Lab work is otherwise unremarkable. Given the procedure, it was recommended that patient have an ultrasound to rule out any abnormalities or retained products of conception. I d iscussed this with the patient, at the time she asked me how long this would approximately take. I told the patient that it would probably be an hour to 2 hours. She told the nurse that she did not want to stay for the ultrasound. I was printing out the patient's AMA form to discuss the risk of leaving AGAINST MEDICAL ADVICE and patient and her significant other were no longer in the room. They had eloped from the emergency department. [place] diagnosis includes but not limited to abnormal uterine bleeding, retained products of conception, ectopic , miscarriage Amount and/or Complexity of Data Reviewed Labs: ordered. Decision-making details documented in ED Course. Diagnoses as of 10/30/24 1230 Vaginal bleeding mEily Claros PA-C 10/30/24 1230 [facility] Work Phone: [phone] Emergency department Note* Emily ClarosSTACEY - 10/30/2024 11:08 AM EST Patient is a 24-year-old female who presents to the emergency room for vaginal bleeding. Patient states that on July 08 she had an elective . She states that she had bleeding after the procedure which she states she was told would be normal. She states that the bleeding improved. She states that around 2:00 this morning she began to have vaginal bleeding which she thought was just her normal menstrual period. She states that the bleeding is heavier than normal and she is changing an ultra tampon every 1 hour. She complains of lower abdominal cramping and bloating. She denies any fever or chills. No nausea or vomiting. No additional symptoms. Review of Systems Constitutional: Negative for chills and fever. HENT: Negative for ear pain and sore throat. Eyes: Negative for pain and visual disturbance. Respiratory: Negative for cough and shortness of breath. Cardiovascular: Negative for chest pain and palpitations. Gastrointestinal: Negative for abdominal pain and vomiting. Genitourinary: Positive for vaginal bleeding. Negative for dysuria and hematuria. Musculoskeletal: Negative for arthralgias and back pain. Skin: Negative for color change and rash. Neurological: Negative for seizures and syncope. All other systems reviewed and are negative. Physical Exam Vitals and nursing note reviewed. Exam conducted with a shirring machine operator automatic present (Morena Hwang RN). Constitutional: General: She is not in acute distress. Appearance: Normal appearance. She is well-developed. HENT: Head: Normocephalic and atraumatic. Nose: No congestion or rhinorrhea. Eyes: Extraocular Movements: Extraocular movements intact. Conjunctiva/sclera: Conjunctivae normal. Pupils: Pupils are equal, round, and reactive to light. Cardiovascular: Rate and Rhythm: Normal rate and regular rhythm. Heart sounds: No murmur heard. Pulmonary: Effort: Pulmonary effort is normal. No respiratory distress. Breath sounds: Normal breath sounds. No wheezing or rales. Abdominal: General: There is no distension. Palpations: Abdomen is soft. There is no mass. Tenderness: There is no abdominal tenderness. There is no guarding or rebound. Hernia: No hernia is present. Genitourinary: General: Normal vulva. Vagina: No signs of injury. Cervix: No cervical motion tenderness, friability or erythema. Comments: Blood noted in vaginal vault. Cervical os is closed Musculoskeletal: General: No swelling. Cervical back: Normal range of motion and neck supple. No rigidity. Skin: General: Skin is warm and dry. Capillary Refill: Capillary refill takes less than 2 seconds. Neurological: Mental Status: She is alert. Psychiatric: Mood and Affect: Mood normal. Labs Reviewed CBC WITH AUTO DIFFERENTIAL - Abnormal Result Value WBC 4.7 nRBC 0.0 RBC 4.33 Hemoglobin 11.1 (*) Hematocrit 35.1 (*) MCV 81 MCH 25.6 (*) MCHC 31.6 (*) RDW 13.8 Platelets 201 Neutrophils % 64.8 Immature Granulocytes %, Automated 0.2 Lymphocytes % 20.0 Monocytes % 12.2 Eosinophils % 1.9 Basophils % 0.9 Neutrophils Absolute 3.02 Immature Granulocytes Absolute, Automated 0.01 Lymphocytes Absolute 0.93 (*) Monocytes Absolute 0.57 Eosinophils Absolute 0.09 Basophils Absolute 0.04 BASIC METABOLIC PANEL - Abnormal Glucose 87 Sodium 138 Potassium 3.8 Chloride 108 (*) Bicarbonate 24 Anion Gap 10 Urea Nitrogen 5 (*) Creatinine 0.56 eGFR >90 Calcium 8.7 HCG, URINE, QUALITATIVE - Normal HCG, Urine NEGATIVE US pelvis (Results Pending) Procedures Medical Decision Making Patient is a 24-year-old female who presents to the emergency room for chief complaint of abnormal vaginal bleeding. She reports that she had an elective in June, she is approximately 15 weeks status post . She states that she has had intermittent bleeding, the bleeding had stopped and returned around 2:00 this morning in which she reports is heavy. She reports abdominal cramping. Urine test obtained which is negative. CBC and BMP also performed, since hemoglobin is slightly low at 11.1. Lab work is otherwise unremarkable. Given the procedure, it was recommended that patient have an ultrasound to rule out any abnormalities or retained products of conception. I d iscussed this with the patient, at the time she asked me how long this would approximately take. I told the patient that it would probably be an hour to 2 hours. She told the nurse that she did not want to stay for the ultrasound. I was printing out the patient's AMA form to discuss the risk of leaving AGAINST MEDICAL ADVICE and patient and her significant other were no longer in the room. They had eloped from the emergency department. [place] diagnosis includes but not limited to abnormal uterine bleeding, retained products of conception, ectopic , miscarriage Amount and/or Complexity of Data Reviewed Labs: ordered. Decision-making details documented in ED Course. Diagnoses as of 10/30/24 1230 Vaginal bleeding Emily Claros PA-C 10/30/24 1230 documented in this [facility] Work Phone: 1([phone] 476-884610-07-2024 History of Present illness Narrative* Jose Delgado MD - 07/06/2024 1:45 PM EDT Debi Verduzco is a 24 y.o. year old female patient. PCP = Forrest Mohr MD Chief Complaint Patient presents with Amenorrhea Patient is here due to amenorrhea. Patient c/o nausea, vomiting, mild cramps, and breast tenderness. Patient denies any vaginal bleeding. HPI Presents that she has not had a menstrual flow since April. She has some nausea and vomiting and breast tenderness. Denies any vaginal bleeding or abdominal pain. OB History 1 Para 1 Term 1 0 AB 0 Living 1 SAB 0 IAB 0 Ectopic 0 Multiple 0 Live Births 1 Past Medical History: Diagnosis Date Anxiety Chlamydia 01/01/2023 Chlamydial infection, unspecified Chlamydia Depression Mastitis of left breast unrelated to or 01/01/2023 Other conditions influencing health status Menarche Other conditions influencing health status 01/16/2022 History of Personal history of other diseases of urinary system 10/08/2019 History of hematuria Poisoning by drug or medicinal substance 01/01/2023 Suicidal ideation 01/01/2023 Past Surgical History: Procedure Laterality Date OTHER SURGICAL HISTORY 03/07/2022 Tonsillectomy Review of Systems: Constitutional: No fever or chills Respiratory: No shortness of breath, or cough Cardiovascular: No chest pain or syncope Breasts: No masses, no nipple discharge Gastrointestinal: No diarrhea, no abdominal pain Genitourinary: No dysuria or frequency Gynecology: Negative except as noted in history of present illness All other: All other systems reviewed and negative for complaint Medication Documentation Review Audit Reviewed by Jose Delgado MD (Physician) on 07/06/24 at 1404 Medication Order Taking? Sig Documenting Provider Last Dose Status albuterol sulfate (Proair Digihaler) 90 mcg/actuation aero powdr breath act w/sensor inhaler [id number] Inhale 1 puff every 6 hours if needed for wheezing. Historical Provider, Active escitalopram (Lexapro) 20 mg tablet [id number] Take 1 tablet (20 mg) by mouth once daily. Radha Cary, MANAGER SECURITY-CORE LAYER MACHINE OPERATOR Active Discontinued 07/06/24 1354 vit,bruce [id number]-[id number] 27 mg iron- 1 mg tablet [id number] Take 1 tablet by mouth once daily.Jose Delgado MD Active vitamin, iron-folic, ( Vitamin) 27 mg iron-800 mcg folic acid tablet [id number] Take by mouth. Historical Provider, Active promethazine (Phenergan) 25 mg tablet [id number] Take 1 tablet (25 mg) by mouth every 6 hours if needed for nausea or vomiting. Jose Delgado MD Active BP 104/62 Ht 1.651 m (5' 5) Wt 64.5 kg (142 lb 3.2 oz) LMP 05/09/2024 (Exact Date) BMI 23.66 kg/m PHYSICAL EXAMINATION: Steelworker present for exam: Colleen McgarryJOHN Well-developed, well nourished, in no acute distress, alert and oriented x three, is pleasant and cooperative. HEENT: Clear. Pupils equal, round and reactive to light and accommodation. Extraocular muscles are intact. Oral mucosa pink without exudate. NECK: No lymphadenopathy, no thyromegaly. LUNGS: Clear bilaterally. HEART: Regular rate and rhythm without murmurs. ABDOMEN: Normoactive bowel sounds, soft and nontender, no guarding or rebound tenderness, no CVA tenderness. EXTREMITIES: No clubbing, cyanosis or edema. NEUROLOGIC: Cranial nerves II-XII grossly intact. : Normal external female genitalia, normal vulva, normal vagina. Normal urethral meatus, urethra and bladder. Vaginal ultrasound shows a live intrauterine at 8 weeks 0 days gestation which is consistent with LMP. EDC is February 13, 2025. Problem List Items Addressed This Visit None Visit Diagnoses test positive ([facility]) Relevant Orders POCT , urine manually resulted (Completed) Provider Impression: 1. Amenorrhea Follow-up in 3 weeks for new OB visit, cultures and labs. [facility] Work Phone: 1(114) 402-796110-01-2024 Telephone encounter Note* Telephone Encounter - Jennifer Dewey RN - 06/30/2024 12:17 PM EDT Left message for patient to return phone call to complete nurse intake questions for her upcoming appointment. Patient has an appointment with Ana Callaway for NOB appointment. [facility]10-01-2024 Miscellaneous Notes* Telephone Encounter - Jennifer Dewey RN - 06/30/2024 12:17 PM EDT Left message for patient to return phone call to complete nurse intake questions for her upcoming appointment. Patient has an appointment with Ana Callaway for NOB appointment. [facility] History and physical note * Forrest Mohr MD - 03/05/2024 7:30 AM EDT Pre procedure H&P Pt feels fine , no complaint General appearance: Comfortable, no distress ROS: No SOB Medications reviewed Head: Normal Neck: Soft Heart: Regular Lungs: Clear Abdomen: soft Impression: clinically doing fine, proceed with procedure Problem List Items Addressed This Visit None Visit Diagnoses Colitis Relevant Orders Colonoscopy Diagnostic [facility] Work Phone: 1(863) 398-477306-06-2024 History and physical note* Forrest Mohr MD - 03/05/2024 7:30 AM EDT Pre procedure H&P Pt feels fine , no complaint General appearance: Comfortable, no distress ROS: No SOB Medications reviewed Head: Normal Neck: Soft Heart: Regular Lungs: Clear Abdomen: soft Impression: clinically doing fine, proceed with procedure Problem List Items Addressed This Visit None Visit Diagnoses Colitis Relevant Orders Colonoscopy Diagnostic documented in this [facility] Work Phone: 1([phone]) 181-793005-02-2024 History of Present illness Narrative* Forrest Mohr MD - 01/30/2024 3:45 PM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 Reproductive Life Planning & Contreception, Care Planning, Depression/Anxiety and Intimate Partner Violence; Discussed Tobacco Cessation Third Trimester Third Trimester: Pain Management Plans, Labor support person(s), Immediate Larc, Signs and Symptoms of Preeclampsia, Feeding No , [place] Education and Family Medical Leave or Disability Forms ROS Const Reports system reviewed and no additional complaints, except as documented Eyes Reports system reviewed and no additional complaints, except as documented ENT Reports system reviewed and no additional complaints, except as documented Card Reports system reviewed and no additional complaints, except as documented Resp Reports system reviewed and no additional complaints, except as documented GI Reports system reviewed and no additional complaints, except as documented, Denies nausea and Denies vomiting Reports system reviewed and no additional complaints, except as documented Musc Reports system reviewed and no additional complaints, except as documented Skin/Breast Reports system reviewed and no additional complaints, except as documented Neuro Yes system reviewed and no additional complaints, except as documented Psych Reports system reviewed and no additional complaints, except as documented Endo Reports system reviewed and no additional complaints, except as documented Santo/Lymph Reports system reviewed and no additional complaints, except as documented Aller/Immun Reports system reviewed and no additional complaints, except as documented Exam Const General: cooperative, healthy appearing and no acute distress Orientation: alert, awake and oriented x3 Neck Neck: normal visual inspection and full ROM Resp Effort & Inspection: normal respiratory effort, able to speak in complete sentences and symmetric chest movement GI Inspection: normal to inspection Palpation: soft and other Other: gravid Skin General: no rashes or lesions noted Neuro General: patient alert, patient awake and patient oriented x3 Cognition: normal cognition Speech: speech normal Gait: normal gait Motor: muscle tone normal throughout Extrem General: normal to inspection and full ROM Psych Appearance: grossly normal Mental Status: mental status grossly normal Mood: congruent mood Affect: normal affect Speech and Movement: speech and movement normal Attitude: cooperative Thought Process: normal Thought Content: normal Judgment: judgment good Results POC Urinalysis 2 Dip (Clinic) Office Urine Glucose Negative Last Edit by Dionne Curtis on 04/23/25 10 :49 Office Urine Protein Negative Last Edit by Dionne Curtis on 04/23/25 10 :49 Coding Level of Care Code Off vis,est,level 3 Diagnoses 21 weeks gestation of Z3A.21 Weeks of gestation: 21 weeks Supervision of high risk in second trimester O09.92 Trimester: second trimester History of miscarriage, currently O09.299 Placenta previa O44.00 Anxiety and depression F41.9; F32.A Assessment and Plan Assessment and Plan (1) : Status: Acute Qualifiers: Weeks of gestation: 21 weeks Qualified Code(s): Z3A.21 - 21 weeks gestation of Comment: NIPT low risk (2) Supervision of high-risk : Status: Acute Qualifiers: Trimester: second trimester Qualified Code(s): O09.92 - Supervision of high risk , unspecified, second trimester Comment: PRR , MYRON 09/02/25, PC: Nathalie, BF: Johny (3) History of miscarriage, currently : Status: Acute Comment: x2 (4) Placenta previa: Status: Acute Comment: Rpt US 28 wk to recheck cervix; pelvic rest (5) Anxiety and depression: Status: Acute Comment: was on Lexapro - stopped awhile ago Orders: Orders POC Urinalysis 2 Dip (Clinic) Today Plan Details Additional Comments: ACOG trimester education reviewed and updated. see problem list details for updated plan management information and see below for orders placed at this visit. GA appropriate handout given. 04/23/25 1111 <Electronically signed by Mariajose oleary CNM> Date _ Mariajose Ayala CNM Cosign Signature: Date (if applicable) CC: ~ [facility] Work Phone: Reason for referral (narrative)No reason for referral information availableWOhio State University [facility] Work Phone: Summary Purpose Family History No Family History Records Found Grandmother Name Dates Details Family history of malignant neoplasm of colon(V16.0, Z80.0) Status:Active Grandfather Name Dates Details Family history of malignant neoplasm of colon(V16.0, Z80.0) Status:Active Grandmother Name Dates Details Family history of malignant neoplasm of colon(V16.0, Z80.0) Status:Active Grandfather Name Dates Details Family history of malignant neoplasm of colon(V16.0, Z80.0) Status:Active Grandmother Name Dates Details Family history of malignant neoplasm of colon(V16.0, Z80.0) Status:Active Grandfather Name Dates Details Family history of malignant neoplasm of colon(V16.0, Z80.0) Status:Active Grandmother Name Dates Details Family history of malignant neoplasm of colon(V16.0, Z80.0) Status:Active Grandfather Name Dates Details Family history of malignant neoplasm of colon(V16.0, Z80.0) Status:Active Grandmother Name Dates Details Family history of malignant neoplasm of colon(V16.0, Z80.0) Status:Active Grandfather Name Dates Details Family history of malignant neoplasm of colon(V16.0, Z80.0) Status:Active Unknown Family Member Name Dates Details Family history of malignant neoplasm of colon: Maternal Grandmother, Maternal Grandfather(V16.0, Z80.0) Status:Active Family history of depression : Mother(V17.0, Z81.8) Status:Active Healthy adult: Sibling Status:Active Unknown Family Member Name Dates Details Family history of malignant neoplasm of colon: Maternal Grandmother, Maternal Grandfather(V16.0, Z80.0) Status:Active Family history of depression : Mother(V17.0, Z81.8) Status:Active Healthy adult: Sibling Status:Active Unknown Family Member Name Dates Details Family history of malignant neoplasm of colon: Maternal Grandmother, Maternal Grandfather(V16.0, Z80.0) Status:Active Family history of depression : Mother(V17.0, Z81.8) Status:Active Healthy adult: Sibling Status:Active Unknown Family Member Name Dates Details Family history of malignant neoplasm of colon: Maternal Grandmother, Maternal Grandfather(V16.0, Z80.0) Status:Active Family history of depression : Mother(V17.0, Z81.8) Status:Active Healthy adult: Sibling Status:Active Unknown Family Member Name Dates Details Family history of malignant neoplasm of colon: Maternal Grandmother, Maternal Grandfather(V16.0, Z80.0) Status:Active Family history of depression : Mother(V17.0, Z81.8) Status:Active Healthy adult: Sibling Status:Active Unknown Family Member Name Dates Details Family history of malignant neoplasm of colon: Maternal Grandmother, Maternal Grandfather(V16.0, Z80.0) Status:Active Family history of depression : Mother(V17.0, Z81.8) Status:Active Healthy adult: Sibling Status:Active Unknown Family Member Name Dates Details Family history of malignant neoplasm of colon: Maternal Grandmother, Maternal Grandfather(V16.0, Z80.0) Status:Active Family history of depression : Mother(V17.0, Z81.8) Status:Active Healthy adult: Sibling Status:Active Unknown Family Member Name Dates Details Family history of malignant neoplasm of colon: Maternal Grandmother, Maternal Grandfather(V16.0, Z80.0) Status:Active Family history of depression : Mother(V17.0, Z81.8) Status:Active Healthy adult: Sibling Status:Active Unknown Family Member Name Dates Details Family history of malignant neoplasm of colon: Maternal Grandmother, Maternal Grandfather(V16.0, Z80.0) Status:Active Family history of depression : Mother(V17.0, Z81.8) Status:Active Healthy adult: Sibling Status:Active Unknown Family Member Name Dates Details Family history of malignant neoplasm of colon: Maternal Grandmother, Maternal Grandfather(V16.0, Z80.0) Status:Active Family history of depression : Mother(V17.0, Z81.8) Status:Active Healthy adult: Sibling Status:Active Unknown Family Member Name Dates Details Family history of malignant neoplasm of colon: Maternal Grandmother, Maternal Grandfather(V16.0, Z80.0) Status:Active Family history of depression : Mother(V17.0, Z81.8) Status:Active Healthy adult: Sibling Status:Active Unknown Family Member Name Dates Details Family history of malignant neoplasm of colon: Maternal Grandmother, Maternal Grandfather(V16.0, Z80.0) Status:Active Family history of depression : Mother(V17.0, Z81.8) Status:Active Healthy adult: Sibling Status:Active Unknown Family Member Name Dates Details Family history of malignant neoplasm of colon: Maternal Grandmother, Maternal Grandfather(V16.0, Z80.0) Status:Active Family history of depression : Mother(V17.0, Z81.8) Status:Active Healthy adult: Sibling Status:Active Unknown Family Member Name Dates Details Family history of malignant neoplasm of colon: Maternal Grandmother, Maternal Grandfather(V16.0, Z80.0) Status:Active Family history of depression : Mother(V17.0, Z81.8) Status:Active Healthy adult: Sibling Status:Active Unknown Family Member Name Dates Details Family history of malignant neoplasm of colon: Maternal Grandmother, Maternal Grandfather(V16.0, Z80.0) Status:Active Family history of depression : Mother(V17.0, Z81.8) Status:Active Healthy adult: Sibling Status:Active Unknown Family Member Name Dates Details Family history of malignant neoplasm of colon: Maternal Grandmother, Maternal Grandfather(V16.0, Z80.0) Status:Active Family history of depression : Mother(V17.0, Z81.8) Status:Active Healthy adult: Sibling Status:Active Unknown Family Member Name Dates Details Family history of malignant neoplasm of colon: Maternal Grandmother, Maternal Grandfather(V16.0, Z80.0) Status:Active Family history of depression : Mother(V17.0, Z81.8) Status:Active Healthy adult: Sibling Status:Active Advance Directives No Advanced Directives Records FoundNo Advanced Directives Records FoundNo Advanced Directives Records FoundNo Advanced Directives Records FoundNo Advanced Directives Records FoundNo Advanced Directives Records FoundNo Advanced Directives Records FoundNo Advanced Directives Records FoundNo Advanced Directives Records FoundNo Advanced Directives Records Found Chief Complaint PT IS HERE TODAY FOR GOT HER NEXPLANON TAKING OUT 7 MONTHS AGO AND HER PERIODS HAVE BEEN HEAVY, PASSING CLOTS AND WILL LAST LONGER THAN NORMAL. INTERCOURSE IS PAINFUL AND HAS NOTICED IT SINCE SHE DELIVERED HER BABY 2 YEARS AGO. LMP: 01/10/2022* Patient is here for Depo Inj. * Office Supply * [facility] [place]: [id number] * Lot# [id number] * Exp: 10/30/2022 * Site: Right Buttock * Depo Provera 150mg/mL IM * Return Date: 04/13/2022 * In office preg test negative* Pt presents to establish new PCP; c/o anxiety; has previously been diagnosed with PTSD and severe anxiety, but get extreme episodes of anxiety; has been on Zoloft in the past, but made her feel like a zombie.Pt presents for med check after starting Lexapro last month. States she feels free but would like to have dose slightly increased. Taking it at 2100 but is still having trouble sleeping. Pt presents for med check after starting Lexapro last month. States she feels free but would like to have dose slightly increased. Taking it at 2100 but is still having trouble sleeping.PT IS HERE TODAY FOR PAIN DURING INTERCOURSE. STATES IT HAS BEEN GOING ON SINCE HER DELIVERY IN 2019. STATES THE PAIN FEELS LIKE A DULL STABBING PAIN THAT IS UNDER HER BELLY BUTTON. STATES THE PAIN IS GETTING WORSE. HAS BEEN DOING THE KEGELS AND IT DOES NOT SEEM BE WORKING. HAS NOT HAD A PERIOD SINCE GETTING OFF THE DEPO IN MARCH.PT IS HERE TODAY FOR U/S RESULTS. HAS NO NEW CONCERNS.Patient is here due to no periods. Patient had her last Depo shot in December and was given progesterone 5mg for 10 days that she started on Jul 11 and she still has not had a period.Patient is here for ER follow up due to vaginal bleeding. Patient had a positive home test. Patient went to ER on 10/21/2022 and is still having bleeding and cramps/ stabbing pain around hernavel, patient also c/o breast tenderness. LMP: 08/25/2022, and had a day in Dec of spotting and a day of bleeding (12- 16 & 17).Patient c/o left breast pain, redness and started it's warm to touch. Patient denies any nipple discharge. Reason for Referral Specialty Diagnoses / Procedures Referred By Kory islas Referred To Contact Diagnoses Generalized anxiety disorder Radha Cary, MANAGER SECURITY[employer] LAYER MACHINE OPERATOR [address] [facility] [address] [place] [address] Referral ID Status Reason Start Date Expiration Date V isits Requested Visits Authorized [id number] Pending Review 10/30/2023 10/29/2024 1 1 Specialty Diagnoses / Procedures Referred By Contac t Referred To Contact Gastroenterology Diagnoses Colitis Procedures Colonoscopy Diagnostic DE COLONOSCOPY FLX DX W/COLLJ SPEC WHEN PFRMD DE COLONOSCOPY W/BIOPSY SINGLE/MULTIPLE DE COLSC FLX W/RMVL OF TUMOR POLYP LESION SNARE TQ DE COLSC FLX W/REMOVAL LESION BY HOT BX FORCEPS Forrest Mohr MD [address] [place] [address] Referral ID Status Reason Start Date Expiration Date V isits Requested Visits Authorized [id number] Pending Review 01/30/2024 01/29/2025 1 1 Referral ID Status Reason Start Date Expiration Date V isits Requested Visits Authorized [id number] Authorized 01/30/2024 01/29/2025 1 1 Specialty Diagnoses / Procedures Referred By Contac t Referred To Contact Radiology Diagnoses Amenorrhea Procedures US OB transvaginal Jose Delgado MD [address] [facility], [place] [address] Referral ID Status Reason Start Date Expiration Date Visits Requested Visits Authorized [id number] Authorized Perform Procedure 07/06/2024 07/06/2025 1 1 Chief Complaint and Reason for Visit Chief Complaint E ORDER Chief Complaint Admit Date New patient , Urine HCG and establis h January 05, 2025 8:38am Amb Documentation January 22, 2025 10: 51am HX MISSCARRIAGE January 28, 2025 8:51am NOB: LMP 11/26, MYRON 09/02February 01, 2025 12 :58pm Reason for Visit Admit Date Amenorrhea January 05, 2025 8:38 am Anxiety and depression February 01, 2025 12: 58pm History of miscarriage, currently pregna nt February 01, 2025 12:58pm February 01, 2025 12:58p m Supervision of high-risk February 012024 12:58pm Chief Complaint Admit Date New patient , Urine HCG and establis h January 05, 2025 8:38am Amb Documentation January 22, 2025 10: 51am HX MISSCARRIAGE January 28, 2025 8:51am NOB: LMP 11/26, MYRON 09/02February 01, 2025 12 :58pm vaginal discharge/leaking 12wk OB February 192024 2:29pm 13wk ob February 24, 2025 1:46p m Reason for Visit Admit Date Amenorrhea January 05, 2025 8:38 am Anxiety and depression February 01, 2025 12: 58pm History of miscarriage, currently pregna nt February 01, 2025 12:58pm February 01, 2025 12:58p m Supervision of high-risk February 012024 12:58pm Anxiety and depression February 19, 2025 2: 29pm History of miscarriage, currently pregna nt February 19, 2025 2:29pm February 19, 2025 2:29p m Supervision of high-risk January 292024 2:29pm Anxiety and depression February 24, 2025 1: 46pm History of miscarriage, currently pregna nt February 24, 2025 1:46pm February 24, 2025 1:46p m Supervision of high-risk January 292024 1:46pm Chief Complaint Admit Date New patient , Urine HCG and establis h January 05, 2025 8:38am Amb Documentation January 22, 2025 10: 51am HX MISSCARRIAGE January 28, 2025 8:51am NOB: LMP 11/26, MYRON 09/02February 01, 2025 12 :58pm vaginal discharge/leaking 12wk OB February 192024 2:29pm 13wk ob February 24, 2025 1:46p m 17wk ob March 25, 2025 1:31 pm Reason for Visit Admit Date Amenorrhea January 05, 2025 8:38 am Anxiety and depression February 01, 2025 12: 58pm History of miscarriage, currently pregna nt February 01, 2025 12:58pm February 01, 2025 12:58p m Supervision of high-risk February 012024 12:58pm Anxiety and depression February 19, 2025 2: 29pm History of miscarriage, currently pregna nt February 19, 2025 2:29pm February 19, 2025 2:29p m Supervision of high-risk January 292024 2:29pm Anxiety and depression February 24, 2025 1: 46pm History of miscarriage, currently pregna nt February 24, 2025 1:46pm February 24, 2025 1:46p m Supervision of high-risk January 292024 1:46pm Anxiety and depression March 25, 2025 1 :31pm History of miscarriage, currently pregna nt March 25, 2025 1:31pm March 25, 2025 1:31 pm Supervision of high-risk March 25, 2025 1:31pm Chief Complaint Admit Date New patient , Urine HCG and establis h January 05, 2025 8:38am Amb Documentation January 22, 2025 10: 51am HX MISSCARRIAGE January 28, 2025 8:51am NOB: LMP 11/26, MYRON 09/02February 01, 2025 12 :58pm vaginal discharge/leaking 12wk OB February 192024 2:29pm 13wk ob February 24, 2025 1:46p m 17wk ob March 25, 2025 1:31 pm 21wk ob April 23, 2025 10:3 9am Reason for Visit Admit Date Amenorrhea January 05, 2025 8:38 am Anxiety and depression February 01, 2025 12: 58pm History of miscarriage, currently pregna nt February 01, 2025 12:58pm February 01, 2025 12:58p m Supervision of high-risk February 012024 12:58pm Anxiety and depression February 19, 2025 2: 29pm History of miscarriage, currently pregna nt February 19, 2025 2:29pm February 19, 2025 2:29p m Supervision of high-risk January [id number] 2:29pm Anxiety and depression February 24, 2025 1: 46pm History of miscarriage, currently pregna nt February 24, 2025 1:46pm February 24, 2025 1:46p m Supervision of high-risk January [id number] 1:46pm Anxiety and depression March 25, 2025 1 :31pm History of miscarriage, currently pregna nt March 25, 2025 1:31pm March 25, 2025 1:31 pm Supervision of high-risk March 25, 2025 1:31pm Anxiety and depression April 23, 2025 1 0:39am History of miscarriage, currently pregna nt April 23, 2025 10:39am Placenta previa April 23, 2025 10:3 9am April 23, 2025 10:3 9am Supervision of high-risk April 23, 2025 10:39am Additional Source Comments INFORMATION SOURCE (unrecogn ized section and content) DATE CREATED AUTHOR 05/20/2019 [facility] DATE CREATED AUTHOR AUTHOR'S ORGANIZ ATION 11/06/2022 [employer] DATE CREATED AUTHOR AUTHOR'S ORGANIZ ATION 01/01/2023 [facility] DATE CREATED AUTHOR AUTHOR'S ORGANIZ ATION 03/08/2023 [facility] DATE CREATED AUTHOR AUTHOR'S ORGANIZ ATION 07/09/2024 [facility] DATE CREATED AUTHOR AUTHOR'S ORGANIZ ATION 01/16/2025 [facility] DATE CREATED AUTHOR AUTHOR'S ORGANIZ ATION 02/07/2025 [facility] DATE CREATED AUTHOR AUTHOR'S ORGANIZ ATION 02/10/2025 [facility] DATE CREATED AUTHOR AUTHOR'S ORGANIZ ATION 04/12/2025 [facility] DATE CREATED AUTHOR AUTHOR'S ORGANIZ ATION 04/24/2025 [facility] <item><item><item><item><item> Privacy Markings (unrecogniz ed section and content) Section Author: Lyn Vizcaino PROHIBITION ON REDISCLOSURE OF CONFIDENTIAL INFORMATION This notice accompanies a disclosure of information concerning a client made to you with the consent of such client. Section Author: Lyn Vizcaino PROHIBITION ON REDISCLOSURE OF CONFIDENTIAL INFORMATION This notice accompanies a disclosure of information concerning a client made to you with the consent of such client. Section Author: Lyn Vizcaino PROHIBITION ON REDISCLOSURE OF CONFIDENTIAL INFORMATION This notice accompanies a disclosure of information concerning a client made to you with the consent of such client. Section Author: Lyn Vizcaino PROHIBITION ON REDISCLOSURE OF CONFIDENTIAL INFORMATION This notice accompanies a disclosure of information concerning a client made to you with the consent of such client. Section Author: Lyn Vizcaino PROHIBITION ON REDISCLOSURE OF CONFIDENTIAL INFORMATION This notice accompanies a disclosure of information concerning a client made to you with the consent of such client. Care Teams (unrecognized sec tion and content) Team Status: Active Member Role Status Dates Radha Cary NP-C Primary Care Provider Active Team Status: Inactive Member Role Status Dates CONCEPCION Caballero Primary Care Provider Active Dr. Meena Us MD Attending Provider Active Performance Improvement Manager Relationship Specialty Start Date End Date Radha Cary, MANAGER SECURITY-CORE LAYER MACHINE OPERATOR [address] [facility] [address] [place] [address] PCP - General Family Medicine 12/31/22 Performance Improvement Manager Relationship Specialty Start Date End Date Radha Cary, MANAGER SECURITY-CORE LAYER MACHINE OPERATOR [address] [facility] [address] [place] [address] PCP - General Family Medicine 12/31/22 Performance Improvement Manager Relationship Specialty Start Date End Date Radha Cary, MANAGER SECURITY-CORE LAYER MACHINE OPERATOR [address] [facility] [address] [place] [address] PCP - General Family Medicine 12/31/22 Performance Improvement Manager Relationship Specialty Start Date End Date Forrest Mohr MD [address] [place] [address] PCP - General Internal Medicine 01/30/24 Performance Improvement Manager Relationship Specialty Start Date End Date Radha Cary, MANAGER SECURITY-CORE LAYER MACHINE OPERATOR [address] [facility] [address] [place] [address] PCP - General Family Medicine 01/31/24 Forrest Mohr MD [address] [place] [address] Surgeon Internal Medicine 01/30/24 Performance Improvement Manager Relationship Specialty Start Date End Date Forrest Mohr MD [address] [place] [address] PCP - General Internal Medicine 03/12/24 Forrest Mohr MD [address] [place] [address] Surgeon Internal Medicine 01/30/24 Performance Improvement Manager Relationship Specialty Start Date End Date Radha Cary CNP [address] [facility] [place] [address] PCP - General Internal Medicine 06/12/24 Performance Improvement Manager Relationship Specialty Start Date End Date Forrest Mohr MD [address] [place] [address] PCP - General Internal Medicine 03/12/24 Forrest Mohr MD [address] [place] [address] Surgeon Internal Medicine 01/30/24 Performance Improvement Manager Relationship Specialty Start Date End Date Forrest Mohr MD [address] [place] [address] PCP - General Internal Medicine 03/12/24 Forrest Mohr MD [address] [place] [address] Surgeon Internal Medicine 01/30/24 Team Status: Inactive Member Role Status Dates CONCEPCION Caballero Primary Care Provider Active Start: January 05, 2025 End: January 05, 2025 CONCEPCION Caballero Referring Provider Active Sta rt: January 05, 2025 End: January 05, 2025 Dr. Meena Us MD Attending Provider Active Start: January 05, 2025 End: January 05, 2025 Team Status: Active Member Role Status Nicolle Cary PILE HEADER-C Primary Care Provider Active Start: January 22, 2025 Tamar Chan RN Attending Provider Active St art: January 22, 2025 Team Status: Inactive Member Role Status Nicolle Cary PILE HEADER-C Primary Care Provider Active Start: January 28, 2025 End: January 28, 2025 Mariajose Ayala CNM Attending Provider Active S tart: January 28, 2025 End: January 28, 2025 Mariajose Ayala CNM Referring Provider Active S tart: January 28, 2025 End: January 28, 2025 Team Status: Inactive Member Role Status Nicolle Cary PILE HEADER-C Primary Care Provider Active Start: February 01, 2025 End: February 01, 2025 Radha Cary PILE HEADER-C Referring Provider Active Sta rt: February 01, 2025 End: February 01, 2025 Mariajose Ayala CNM Attending Provider Active S tart: February 01, 2025 End: February 01, 2025 Team Status: Inactive Member Role Status Nicolle Cary PILE HEADER-C Primary Care Provider Active Start: February 01, 2025 End: February 01, 2025 Mariajose Ayala CNM Attending Provider Active S tart: February 01, 2025 End: February 01, 2025 Mariajose Ayala CNM Referring Provider Active S tart: February 01, 2025 End: February 01, 2025 Team Status: Inactive Member Role Status Nicolle Cary PILE HEADER-C Primary Care Provider Active Start: February 19, 2025 End: February 19, 2025 Radha Cary PILE HEADER-C Referring Provider Active Sta rt: February 19, 2025 End: February 19, 2025 Dr. Colleen Villalobos , Attending Provider Activ e Start: February 19, 2025 End: February 19, 2025 Team Status: Inactive Member Role Status Nicolle Cary PILE HEADER-C Primary Care Provider Active Start: February 24, 2025 End: February 24, 2025 Radha Cary PILE HEADER-C Referring Provider Active Sta rt: February 24, 2025 End: February 24, 2025 Dr. Colleen Villalobos , Attending Provider Activ e Start: February 24, 2025 End: February 24, 2025 Team Status: Active Member Role Status Nicolle Cary PILE HEADER-C Primary Care Provider Active Start: February 24, 2025 Dr. Colleen Villalobos , DO Attending Provider Activ e Start: February 24, 2025 Dr. Colleen Villalobos , DO Referring Provider Activ e Start: February 24, 2025 Team Status: Inactive Member Role Status Nicolle Cary PILE HEADER-C Primary Care Provider Active Start: February 24, 2025 End: February 24, 2025 Dr. Colleen Villalobos , DO Attending Provider Activ e Start: February 24, 2025 End: February 24, 2025 Dr. Colleen Villalobos , DO Referring Provider Activ e Start: February 24, 2025 End: February 24, 2025 Team Status: Inactive Member Role Status Nicolle Cary PILE HEADER-C Primary Care Provider Active Start: March 25, 2025 End: March 25, 2025 Radha Cary NP-C Referring Provider Active Sta rt: March 25, 2025 End: March 25, 2025 Aisha Vitale NP, PILE HEADER-C Attending Provider Active Start: March 25, 2025 End: March 25, 2025 Team Status: Active Member Role/Relationship Status Nicolle Cary NP-C Primary Care Provider Active Team Status: Inactive Member Role/Relationship Status Nicolle Cary NP-C Primary Care Provider Active Start: January 05, 2025 End: January 05, 2025 ELAINE CaballeroC Referring Provider Active Sta rt: January 05, 2025 End: January 05, 2025 Dr. Meena Us MD Attending Provider Active Start: January 05, 2025 End: January 05, 2025 Team Status: Active Member Role/Relationship Status Nicolle Cary NP-C Primary Care Provider Active Start: January 22, 2025 Tamar Chan RN Attending Provider Active St art: January 22, 2025 Team Status: Inactive Member Role/Relationship Status Nicolle Cary NP-C Primary Care Provider Active Start: January 28, 2025 End: January 28, 2025 Mariajose Ayala CNM Attending Provider Active S tart: January 28, 2025 End: January 28, 2025 Mariajose Ayala CNM Referring Provider Active S tart: January 28, 2025 End: January 28, 2025 Team Status: Inactive Member Role/Relationship Status ELAINE UsC Primary Care Provider Active Start: February 01, 2025 End: February 01, 2025 Radha Cary PILE HEADER-C Referring Provider Active Sta rt: February 01, 2025 End: February 01, 2025 Mariajose Ayala CNM Attending Provider Active S tart: February 01, 2025 End: February 01, 2025 Team Status: Inactive Member Role/Relationship Status Nicolle Cary PILE HEADER-C Primary Care Provider Active Start: February 01, 2025 End: February 01, 2025 Mariajose Ayala CNM Attending Provider Active S tart: February 01, 2025 End: February 01, 2025 Mariajose Ayala CNM Referring Provider Active S tart: February 01, 2025 End: February 01, 2025 Team Status: Inactive Member Role/Relationship Status Nicolle Cary PILE HEADER-C Primary Care Provider Active Start: February 19, 2025 End: February 19, 2025 Radha Cary PILE HEADER-C Referring Provider Active Sta rt: February 19, 2025 End: February 19, 2025 Dr. Colleen Villalobos , Attending Provider Activ e Start: February 19, 2025 End: February 19, 2025 Team Status: Inactive Member Role/Relationship Status Nicolle Cary PILE HEADER-C Primary Care Provider Active Start: February 24, 2025 End: February 24, 2025 Radha Cary PILE HEADER-C Referring Provider Active Sta rt: February 24, 2025 End: February 24, 2025 Dr. Colleen Villalobos , Attending Provider Activ e Start: February 24, 2025 End: February 24, 2025 Team Status: Inactive Member Role/Relationship Status Nicolle Cary NP-C Primary Care Provider Active Start: February 24, 2025 End: February 24, 2025 Dr. Colleen Villalobos DO Attending Provider Activ e Start: February 24, 2025 End: February 24, 2025 Dr. Colleen Villalobos , Referring Provider Activ e Start: February 24, 2025 End: February 24, 2025 Team Status: Inactive Member Role/Relationship Status Nicolle Cary PILE HEADER-C Primary Care Provider Active Start: March 25, 2025 End: March 25, 2025 Radha Cary PILE HEADER-C Referring Provider Active Sta rt: March 25, 2025 End: March 25, 2025 Aisha Vitale NP, PILE HEADER-C Attending Provider Active Start: March 25, 2025 End: March 25, 2025 Team Status: Inactive Member Role/Relationship Status Dates CONCEPCION Caballero Primary Care Provider Active Start: April 23, 2025 End: April 23, 2025 CONCEPCION Caballero Referring Provider Active Sta rt: April 23, 2025 End: April 23, 2025 Mariajose Ayala CNM Attending Provider Active S tart: April 23, 2025 End: April 23, 2025 Goals (unrecognized section and content) Goals may be documented in a n alternate sectionGoals may be documented in an alternate sectionGoals may be documented in an alternate sectionGoals may be documented in an alternate sectionGoals may be documented in an alternate sectionGoals may be documented in an alternate section Reason for Visit (unrecogniz ed section and content) Reason Comments Follow-up Reason Comments Abdominal Pain Black or Bloody Stool Pt comes in for ab dominal pain and blood stools. Pt reports for the last couple days having abdominal cramping. Pt recently got off her period and just thought it was that. Pt states she was having a lot of pain around 0730 today and took some pepto to help her go. Pt states she then had a bright red bm and has been having increased abdominal pain. Pt reports multiple bloody bms since this am. Denies any injury Reason Comments CONSULT CONSULT FOR COLONOSC OPY - PT HAS BLOOD IN STOOL Specialty Diagnoses / Procedures Referred By Kory t Referred To Contact Diagnoses Noninfective gastroenteritis and colitis, unspecified Procedures DE COLONOSCOPY FLX DX W/COLLJ SPEC WHEN PFRMD DE COLONOSCOPY W/BIOPSY SINGLE/MULTIPLE DE COLSC FLX W/REMOVAL LESION BY HOT BX FORCEPS DE COLSC FLX W/RMVL OF TUMOR POLYP LESION SNARE TQ [facility] [id number] [facility] [address] [place] [address] [phone] Referral ID Status Reason Start Date Expiration Date Visits Re quested Visits Authorized [id number] 1 Reason Comments Amenorrhea Patient is here due to amenorrhea. Patient c/o nausea, vomiting, mild cramps, and breast tenderness. Patient denies any vaginal bleeding. Reason Comments 07/07 NOB Intake Questions Reason Comments Vaginal Bleeding Patient states she h ad an in June and had heavy bleeding for 15 weeks post . Patient states she has not received a normal period and started with heavy vaginal bleeding again this am at 0200. She reports using a ultra tampon every 1 hour. C/o cramping/bloating, denies other symptoms. Reason Comments Vomiting During Pt is 9 weeks has been vomiting all day, unable to keep water down. Pt has zofran but did not take it today because it hasn't been helping. I feel dehydrated and weak. Scheduled Active and Recently Administ ered Medications (unrecognized section and content) Medication Order 01/28/2024 01/29/2024 01/30/2024 iohexol (OMNIPaque) 350 mg iodine/mL solution 75 mL (COMPLETED) 75 mL, intravenous, Once in imaging, Starting on [place] 01/30/24 at 1230, For 1 dose 1231 (Given - Provid er: Meño Varela) morphine injection 4 mg (COMPLETED) 4 mg, intravenous, Once, On [place] 01/30/24 at 1120, For 1 dose 1145 (Given - Provid er: Loraine Aguillon RN) ondansetron (Zofran) injection 4 mg (COMPLETED) 4 mg, intravenous, Once, On [place] 01/30/24 at 1125, For 1 dose, When administering via IV Push, administer over 3-5 minutes. 1145 (Given - Provid er: Loraine Aguillon RN) sodium chloride 0.9 % bolus 1,000 mL (COMPLETED) 1,000 mL, intravenous, at 1,000 mL/hr, Administer over 1 Hours, Once, On [place] 01/30/24 at 1120, For 1 dose 1144 (New Bag - Prov ider: Loraine Aguillon RN)1244 (Stopped - Provider: Loraine Aguillon RN) Continuous Medication Order 01/28/2024 01/29/2024 01/30/2024 sodium chloride 0.9% infusion 150 mL/hr, intravenous, Continuous, Starting on [place] 01/30/24 at 1120 1120 (Due) Scheduled Medication Order 01/29/2025 01/30/2025 01/31/2025 cefTRIAXone (Rocephin) 1 g in dextrose (iso) IV 50 mL (COMPLETED) 1 g, intravenous, at 100 mL/hr, Administer over 30 Minutes, Once, On Sat01/31/25 at 2034, For 1 dose, premix bag, Suspected Indication (Select all that apply): Urinary Tract Infection, Type of Therapy: Definitive, No Cultures, Type of Urinary Tract Infection: Uncomplicated, Indications: Urinary Tract Infection 2042 (New Bag - Prov ider: Katia Hollis RN)2117 (Stopped - Provider: Katia Hollis RN) ondansetron (Zofran) injection 4 mg (COMPLETED) 4 mg, intravenous, Once, On 01/31/25 at 1845, For 1 dose, When administering via IV Push, administer over 3-5 minutes. 1900 (Given - Provid er: Keke Yadav RN) sodium chloride 0.9 % bolus 1,000 mL (COMPLETED) 1,000 mL, intravenous, at 999 mL/hr, Administer over 1 Hours, Once, On 01/31/25 at 1845, For 1 dose 1899 (New Bag - Prov ider: Keke Yadav RN)2042 (Stopped - Provider: Katia Hollis RN) Source Comments (unrecognize d section and content) In the event this informatio n is protected by the Federal Confidentiality of Alcohol and Drug Abuse Patient Records regulations: The Federal rules restrict any use of the information to criminally investigate or prosecute any alcohol or drug abuse patient.[facility] FOR RECORDS PERTAINING TO PATIENTS WHO ARE OR HAVE BEEN ENROLLED IN A CHEMICAL DEPENDENCY/SUBSTANCEABUSE PROGRAM, SOME INFORMATION MAY BE OMITTED. This clinical summary was aggregated from multiple sources. Caution should be exercised in using it in the provision of clinical care. This summary normalizes information from multiple sources, and as a consequence, information in this document may materially change the coding, format and clinical context of patient data. In addition, data may be omitted in some cases. CLINICAL DECISIONS SHOULD BE BASED ON THE PRIMARY CLINICAL RECORDS. [employer] provides no warranty or guarantee of the accuracy or completeness of information in this document.
[2025-05-07 18:29] VITALS: BMI 23.4
[2025-05-07 18:38] VITALS: BP 106/55; PULSE 70
[2025-05-07 19:17] LABS: ROM Internal Control Test YES-OK TO RESULT pt. (Internal QC); ROM Patient Test Negative (Negative); Record Kit Lot#, ROM+ K3358
--- NOTE | 2025-05-07 21:49 | OB.TRI.PN_ITS ---
Progress Notes Date of Service: 05/07/25 Progress Note: Patient presents for triage evaluation secondary to vaginal discharge at 23 weeks FHT: 140 Moderate variability reactive no decelerations category I tracing- reactive for gestational age [place]: no Contractions Assessment and plan: Rom neg, Reactive NST, reassuring maternal and status patient discharged to home to follow-up in office. See problem list details for additional plan information. Laboratory Studies: Laboratory Tests 05/07/25 Range/Units 18:40 Vag Amniotic Fld Detect Negative (Negative) Charges/Coding Multi Select Codes Urinary/Genital Urinary/Genital CPT Codes: 68685-93 non-stress test Interp Assessment & Plan (1) Placenta previa: COMMENT: Rpt US 28 wk to recheck cervix; pelvic rest (2) History of miscarriage, currently : COMMENT: x2 (3) Supervision of high-risk : QUALIFIERS: Trimester: second trimester Qualified Code(s): O09.92 - Supervision of high risk , unspecified, second trimester COMMENT: PRR , MYRON 09/02/25, PC: Nathalie, BF: Johny (4) : QUALIFIERS: Weeks of gestation: 21 weeks Qualified Code(s): Z3A.21 - 21 weeks gestation of COMMENT: NIPT low risk (5) Anxiety and depression: COMMENT: was on Lexapro - stopped awhile ago (6) Vaginal discharge during : COMMENT: rom neg
== END 2025-05-07 19:31 | disposition home or self-care (01) ==
LOC: WPOUT 18:14 → WP 18:27
PROVIDERS: PCP Nurse Practitioner Family; Referring Provider Advanced Practice Midwife; Visit Provider Advanced Practice Midwife
DX: O99.891 Other specified diseases and conditions complicating pregnancy (principal); O99.342 Other mental disorders complicating pregnancy, second trimester; O44.02 Complete placenta previa NOS or without hemorrhage, second trimester; N89.8 Other specified noninflammatory disorders of vagina; F41.9 Anxiety disorder, unspecified; F32.A Depression, unspecified; Z3A.23 23 weeks gestation of pregnancy
CPT/HCPCS: 59050; 84112; 99221; G0378

== ENCOUNTER → 2025-06-07 | Outpatient (CLI) | payer MEDICAID, SELFPAY ==
[2025-06-07 13:39] LABS: Hematocrit 31.3 % (37-47); Hemoglobin 10.9 g/dL (12.0-15.0); Immature Granulocytes Count 0.050 X10^3/uL (0.0-0.0); Mean Corp Hgb Conc 34.8 g/dL (32-36); Mean Corpuscular Volume 84.8 fL (81-99); Mean Platelet Vol. 10.7 fl (6.2-12.0); NRBC Flagged by Analyzer 0 % (0-5); Platelet Count 223 K/mm3 (150-450); RBC Distribution Width CV 14.2 % (11.6-14.6); RBC Distribution Width SD 43.9 fl (35.1-43.9); Red Blood Count 3.69 M/mm3 (4.2-5.4); White Blood Count 7.7 K/mm3 (4.4-11.0)
[2025-06-07 14:08] LABS: Glucose Challenge Gest 1H 50g 127 mg/dL (70-140); HIV Nonreactive (Nonreactive); Syphilis Antibodies Nonreactive (Nonreactive)
== END | disposition home or self-care (01) ==
LOC: PAVLAB 13:07
PROVIDERS: PCP Nurse Practitioner Family; Referring Provider Obstetrics & Gynecology; Visit Provider Obstetrics & Gynecology
DX: O09.92 Supervision of high risk pregnancy, unspecified, second trimester (principal); Z3A.00 Weeks of gestation of pregnancy not specified; Z13.1 Encounter for screening for diabetes mellitus
CPT/HCPCS: 36415; 82950; 85025; 86703; 86780

== ENCOUNTER 2025-08-04 12:03 | Outpatient (CLI) | payer MEDICAID, SELFPAY ==
[2025-08-04] VITALS (12 sets, daily range): BP systolic 116; BP diastolic 78; PULSE 86–110; RESP 14; TEMP 36.4; O2SAT 97–100; BMI 27.3
[2025-08-04 12:58] LABS: ROM Internal Control Test YES-OK TO RESULT pt. (Internal QC); ROM Patient Test Negative (Negative)
[2025-08-04 12:59] LABS: Record Kit Lot#, ROM+ K3607
[2025-08-04 13:36] LABS: Color, Urine Yellow (Yellow); Glucose, Dipstick Normal (Normal); Ketone-Dipstick Negative (Negative); Leukocyte Esterase-Dipstick 500 /ul (Negative); Nitrite-Dipstick Negative (Negative); Occult Blood-Urine 25 /ul (Negative); Protein-Dipstick 30 mg/dl (Negative); Specific Gravity, Urine 1.020 (1.002-1.030); Urine Bilirubin Dipstick Negative (Negative)
--- NOTE | 2025-08-04 13:55 | OB.TRI.PN ---
Progress Notes Progress Note: Patient presents for triage evaluation secondary to dec fm possible srom FHT: 150 Moderate variability reactive no decelerations category I tracing [address]: irregulr Contractions Assessment and plan: 35 week dec fm amniontic membranes intact rom plus neg Reactive NST, reassuring maternal and status patient discharged to home to follow-up as scheduled. suspect uti ordered keflex, culture sent. See problem list details for additional plan information. Laboratory Studies: Laboratory Tests 08/04/25 08/04/25 Range/Units 12:25 11:25 Urine Color Yellow (Yellow) Urine Clarity Sl. Cloudy (Clear) Urine pH 6.0 (5.0 - 8.0) Ur Specific [place] 1.020 (1.002-1.030) Urine Protein 30 H (Negative) mg/dl Urine Glucose (UA) Normal (Normal) mg/dl Urine Ketones Negative (Negative) mg/dl Urine Occult Blood 25 H (Negative) /ul Urine Nitrite Negative (Negative) Urine Bilirubin Negative (Negative) mg/dL Urine Urobilinogen Normal (Normal) mg/dl Ur Leukocyte Esterase 500 H (Negative) /ul Vag Amniotic Fld Detect Negative (Negative) Charges/Coding Procedures Urinary/Genital 52xxx-59xxx: 61655-51 non-stress test Interp
== END 2025-08-04 13:58 | disposition home or self-care (01) ==
LOC: WPOUT 12:06 → WP 12:06
PROVIDERS: PCP Nurse Practitioner Family; Referring Provider Obstetrics & Gynecology; Visit Provider Obstetrics & Gynecology
DX: O36.8130 Decreased fetal movements, third trimester, not applicable or unspecified (principal); Z3A.35 35 weeks gestation of pregnancy
CPT/HCPCS: 59025; 59050; 81002; 84112; 87086; 99221; G0378

== ENCOUNTER → 2025-08-05 | Outpatient (CLI) | payer MEDICAID, SELFPAY | END | disposition home or self-care (01) | LOC: LABSPEC 15:21 | PROVIDERS: PCP Nurse Practitioner Family; Visit Provider Obstetrics & Gynecology | DX: O09.93 Supervision of high risk pregnancy, unspecified, third trimester (principal); Z3A.00 Weeks of gestation of pregnancy not specified | CPT/HCPCS: 87081 ==

== ENCOUNTER → 2025-08-11 | Outpatient (CLI) | payer MEDICAID, SELFPAY ==
--- NOTE | 2025-08-11 15:53 | US_ITS ---
PROCEDURE: OB LIMITED WITH BIOMETRICS 08/11/2025 REASON FOR EXAM: GROWTH TECHNIQUE: Procedure Code: [id number] Modality: US Procedure: OB LIMITED WITH BIOMETRICS COMPARISON: None FINDINGS LMP: November 26, 2024. Number: 1 Position: Vertex Placental Position: Anterior and not low-lying Placental Abnormalities: No evidence of previa. DIMENSIONS: Biparietal Diameter: 9 cm: 36 weeks and 4 days: 57 percentile/ Head Circumference: 33.1 cm: 37 weeks and 5 days: 42nd percentile/ Abdominal Circumference: 33.5 cm: 37 weeks and 3 days: 77 percentile/ Femur Length: 7 cm: 36 weeks and 1 day: 28 percentile/ ESTIMATED WEIGHT: 3103 g plus/-466 g ESTIMATED WEIGHT PERCENTILE (24+ weeks): 61 percentile ESTIMATED GESTATIONAL AGE: Baseline: 36 weeks and 6 days By Ultrasound: 37 weeks and 2 days ESTIMATED DATE OF DELIVERY: Baseline: September 02, 2025 By Ultrasound: August 30, 2024 BIOPHYSICAL ASSESSMENT: Amniotic Fluid Volume: 6.1 cm Amniotic Fluid Index: 12.2 cm (8-24 cm normal range) Cardiac Motion: 171 beats per minute (average) Trunk and Limb Motion: Present. MATERNAL ANATOMY: Adnexa: Neither maternal ovary is successfully identified. US/OB Limited With Biometrics IMPRESSION: Single live intrauterine gestation with a mean gestational age of 37 weeks and 2 days. Reading Location: [id number]
== END | disposition home or self-care (01) ==
LOC: US 15:51
PROVIDERS: PCP Nurse Practitioner Family; Referring Provider Obstetrics & Gynecology; Visit Provider Obstetrics & Gynecology
DX: O26.849 Uterine size-date discrepancy, unspecified trimester (principal); Z3A.00 Weeks of gestation of pregnancy not specified
CPT/HCPCS: 76816

== ENCOUNTER 2025-08-15 10:40 | Outpatient (CLI) | payer MEDICAID, SELFPAY ==
--- OUTSIDE RECORDS SUMMARY | 2025-08-15 10:59 | XMS RPT_ITS | CCD ---
Author Organization [facility]iniSyut Care Team Providers Care Claim Investigator Name Role Phone Keara Mckenzie Unavailable Unavailable None, No PCP Unavailable Unavailable Valencia Khanna Unavailable [phone] Unavailable Unavailable Radha Cary Unavailable Keara Mckenzie [...] BRANDY CARY RADHA MARY Primary Care Unavailable Martín SHEET METAL ERECTOR-Radha NAVA Primary Care Provider Radha Cary Primary [...] Danny, Dr. Jose Olson Attending Unavai lable Martín, Radha Primary Care Unavailable Danny, Dr. Jose [...] Unavailable Forrest Mohr MD Primary Care Provider Martín SHEET METAL ERECTOR-SCRIPT SUPERVISOR, Radha Primary Care Provider [phone] Forrest Mohr MD Unavailable Forrest Mohr MD Primary Care Provider Martín SCRIPT SUPERVISOR, Radha Primary Care Provider Forrest Mohr MD Unavailable Forrest Mohr MD Primary Care Provider Martín PRODUCT APPLICATIONS SCIENTIST-C, Radha Primary Care Provider [phone] Martín PRODUCT APPLICATIONS SCIENTIST-C, Radha Referring Provider [phone] Magen MONROE, Dr. Robledo Attending Provider Tamar Chan RN Attending Provider UnavailMariajose Sears CNM Attending Provider Mariajose Ayala CNM Referring Provider FORREST MOHR Primary Care Unavailable FORREST MOHR Attending Unavailable FORREST MOHR Referring Unavailable TAVALLAEE, FORREST M Primary Care Unavailable TAVALLAEE, FORREST M Primary Care Unavailable FILEMON RUIZ Attending Unavailable TAVALLAEE, FORREST M Primary Care Unavailable JOSE DELGADO Attending Unavailable TAVALLAEE, FORREST M Primary Care Unavailable LORENZA MAURICIO Stephen Attending Unavailable TAVALLAEE, FORREST M Primary Care Unavailable Dr. Colleen Villalobos DO Attending Provider Dr. Colleen Villalobos DO Referring Provider Winifred PRODUCT APPLICATIONS SCIENTIST-CAisha Attending Provider [phone] Martín PRODUCT APPLICATIONS SCIENTIST-C, Radha Primary Care Provider Martín PRODUCT APPLICATIONS SCIENTIST-C, Radha Referring Provider Mariajose Ayala CNM Other Provider [phone] Magen MONROE, Dr. Robledo Attending Provider Martín PRODUCT APPLICATIONS SCIENTIST-C, Radha Primary Care Provider Martín PRODUCT APPLICATIONS SCIENTIST-C, Radha Referring Provider Mariajose Ayala CNM Attending Provider [phone] Mariajose Ayala CNM Referring Provider [phone] Dr. Meena Us MD Referring Provider [phone] RADHA CARY Primary Care Unavailable VENESSA MORRIS Attending Unavailable COLLEEN ROSALES Referring Unavailab COLLEEN Monge Referring Unavailab COLLEEN Monge Attending Unavailab le RADHA CARY Primary Care Unavailable Martín PRODUCT APPLICATIONS SCIENTIST-C, Radha Primary Care Physician Martín PRODUCT APPLICATIONS SCIENTIST-C, Radha Referring Provider Winifred PRODUCT APPLICATIONS SCIENTIST-CAisha Attending Physician [phone] Mariajose Ayala CNM Attending Physician [phone] Mariajose Ayala CNM Nurse Practitioner [phone] Dr. Meena Us MD Attending Physician Dr. Colleen Villalobos DO Attending Physician Cary SHEET METAL ERECTOR-SCRIPT SUPERVISOR, Radha K Primary Care Provider [phone] Pj Dillard, Colleen Attending Unavailabl e Cary, Radha Primary Care Unavailable Cary, Ardha Referring Unavailable Vande Velde, Colleen Attending Unavailabl e Cary, Radha Primary Care Unavailable Cary, Radha Referring Unavailable Winifred PRODUCT APPLICATIONS SCIENTIST, Aisha Attending Unavailable Cary, Radha Primary Care Unavailable Cary, Radha Referring Unavailable Jamie, Mariajose Referring Unavailable Jamie, Mariajose Attending Unavailable Jamie Mariajose Consulting Unavailable Cary, Radha Primary Care Unavailable Jamie, Mariajose Attending Unavailable Cary, Radha Primary Care Unavailable Jmaie, Mariajose Referring Unavailable Jamie, Mariajose Referring Unavailable Jamie, Mariajose Attending Unavailable Cary, Radha Primary Care Unavailable MarcanthonyMeena Referring Unavailable Marcanthony, Meena Attending Unavailable Cary, Radha Primary Care Unavailable MarcanthonyMeena Attending Unavailable MarcanthonyMeena Referring Unavailable Acry, Radha Primary Care Unavailable Mariajose Ayala Attending Unavailable Cary, Radha Primary Care Unavailable Jamie, Mariajose Referring Unavailable MarcanthonyMeena Consulting Unavailable MarcanthonyMeena Referring Unavailable MarcanthonyMeena Attending Unavailable Cary, Radha Primary Care Unavailable Tamar Chan Attending Unavailable Cary, Radha Primary Care Unavailable Mariajose Ayala Attending Unavailable Cary, Radha Primary Care Unavailable Cary, Radha Referring Unavailable Vande Velde, Colleen Attending Unavailabl e Cary, Radha Primary Care Unavailable Cary, Radha Referring Unavailable Winifred PRODUCT APPLICATIONS SCIENTIST, Aisha Attending Unavailable Cary, Radha Primary Care Unavailable Cary, Radha Referring Unavailable MarcanthonyMeena Attending Unavailable Cary, Radha Referring Unavailable Cary, Radha Primary Care Unavailable Winifred PRODUCT APPLICATIONS SCIENTIST, Aisha Attending Unavailable Cary, Radha Referring Unavailable Cary, Radha Primary Care Unavailable MarcanthonyMeena Attending Unavailable Cary, Radha Primary Care Unavailable Cary, Radha Referring Unavailable Cary, Radha Referring Unavailable Jamie Mariajose Attending Unavailable Cary, Radha Primary Care Unavailable MarcanthonyMeena Attending Unavailable Cary, Radha Primary Care Unavailable Jamie, Mariajose Attending Unavailable Cary, Radha Primary Care Unavailable Jamie, Mariajose Referring Unavailable Vande Velde, Colleen Referring Unavailabl e Vande Velde, Colleen Attending Unavailabl e Cary, Radha Primary Care Unavailable MalikanthonyMeena Attending Unavailable MarcanthonyMeena Referring Unavailable Cary, Radha Primary Care Unavailable MarcanthonyMeena Attending Unavailable Cary, Radha Primary Care Unavailable Radha Cary Referring Unavailable Mariajose Ayala Attending Unavailable Radha Cary Primary Care Unavailable Radha Cary Referring Unavailable Mariajose Ayala Attending Unavailable Radha Cary Primary Care Unavailable Radha Cary Referring Unavailable Martín PRODUCT APPLICATIONS SCIENTIST-C, Radha Primary Care Physician Martín PRODUCT APPLICATIONS SCIENTIST-C, Radha Referring Provider [phone] Mariajose Ayala CNM Attending Physician [phone] Jamie CNMariajose Mitchell Referring Provider [phone] Mariajose Ayala CNM Nurse Practitioner [phone] Magen MONROE, Dr. Robledo Attending Physician Magen MONROE, Dr. Robledo Referring Provider Winifred REGAN-CAisha Attending Physician [phone] Dr. Colleen Villalobos DO Attending Physician Magen MONROE, Dr. Robledo Nurse Practitioner Medications Current Medications Medication Drug Class(es) Dates Sig (Normalized) Sig (Original) amoxicillin 875 mg / clavulanate 125 mg [...] directed by prescriber.Take with food or milk. cephalexin 500 mg oral capsule (5 sources) Cephalosporin Antibacterial Start: 08-04-2025 take 1 capsule by mouth every six hours Start: 01-31-2025 End: 02-05-2025 take 1 capsule by mouth four times [...] oral tablet (5 sources) Anticholinergic Start: 01-30-20 End: 02-09-20 24 take 1 tablet by [...] care when operating dangerous machinery. doxylamine succinate 10 mg / pyridoxine hydrochloride 10 mg delayed release oral tablet (1 source) Start: take 1 tablet by mouth once daily doxylamine-pyridoxin e, vit B6, 10-10 mg tablet,delayed release (DR/EC) Indications: Nausea and vomiting in prior to 22 weeks gestation Take 1 tablet by mouth once daily. 90 tablet 1 01/13/2025 Active escitalopram 20 mg oral tablet (20 sources) Serotonin Reuptake Inhibitor Start: 3 End: take 1 tablet by mouth once daily [...] 07-Mar-2022 Radha Shaikh Start : 07-Mar-2022 Active famotidine 20 mg oral tablet (5 sources) Histamine-2 Receptor Antagonist Start: 06-07-2025 take 1 tablet by mouth once daily ferrous gluconate 324 mg oral tablet (2 sources) Start: 07-06-2025 take 1 tablet by mouth once daily fluticasone propionate 0.05 mg/actuat metered dose nasal [...] Mejia Status: Other Generic Substitution Allowed Vit No.[id number] ( Vitamin) 27 mg iron- 800 mcg tablet (12 sources) Start: 01-05-2025 Start: 01-05-2025 Vit N o.[id number]-[id number] ( Vitamin) 27 mg iron- 800 mcg tablet Active 1 {tbl} PO daily January 05, 2025 12:00am Complies with drug therapy Start: 01-05-2025 Vit N o.[id number]-[id number] ( Vitamin) 27 mg iron- 800 mcg tablet Active 1 {tbl} PO daily January 05, 2025 12:00am vit,bruce 39-mahq-zyvwy 27 mg iron- 1 mg tablet (3 sources) Start: 06-08-2024 End: 06-08-2025 take 1 tablet by mouth once daily vit,bruce 04-nbla-klwtq 27 mg iron- 1 mg tablet Indications: Amenorrhea Take 1 tablet by mouth once daily. 90 each 3 06/08/2024 06/08/2025 Active vitamin, iron-folic, ( Vitamin) 27 mg iron-800 mcg folic acid tablet (3 sources) Start: 12-22-2024 take 1 tablet by mouth once daily vitamin, iron-folic, ( Vitamin) 27 mg iron-800 mcg folic acid tablet Indications: test positive ([facility]) Take 1 tablet by mouth once daily. 90 tablet 3 12/22/2024 Active vitamin , iron-folic, ( Vitamin) 27 mg iron-800 mcg folic acid tablet Take by mouth. Active pyridoxine hydrochloride 25 mg oral tablet (1 source) Start: 01-13-2025 End: 04-13-2025 take 1 tablet by mouth every eight hours pyridoxine (Vitamin B-6) 25 mg tablet Indications: Nausea and vomiting in prior to 22 weeks gestation Take 1 tablet (25 mg) by mouth every 8 hours. 90 tablet 1 01/13/2025 04/13/2025 Active Completed/Discontinued Medications Medication Drug Class(es) Dates Sig (Normalized) Sig (Original) [id number] 200 actuat albuterol 0.09 mg/actuat metered dose inhaler (18 sources) beta2-Adrenergic Agonist Start: 02-24-2025 End: 05-07-2025 Albuterol Sulfate (Ventolin Hfa) 90 mcg/actuation HFA aerosol inhaler Discontinued 2 NMA INHALATION EVERY 4-6 HOURS as needed for shortness of breath or wheezing 6.7 0 February 23, 2025 11:00pm May 07, 2025 5:34pm take 1 puff(s) by in halation every six hours for wheezing albuterol sulfate (Proair Digihaler) 90 mcg/actuation aero powdr breath act w/sensor inhaler Inhale 1 puff every 6 hours if needed for wheezing. Active azithromycin 500 mg oral tablet (2 sources) Macrolide Antimicrobial Start: 01-22-2022 take 2 tablets by mouth once Azithromycin 500 MG Oral Tablet TAKE 2 TABLET ONCE Quantity: 2 Refills: 0 Ordered: 22-Jan-2022 Keara Mckenzie DO Start : 22-Jan-2022 Active calcium chloride 0.0014 meq/ml / potassium chloride 0.004 meq/ml / sodium chloride 0.103 meq/ml / sodium lactate 0.028 meq/ml injectable solution (2 sources) Start: 03-05-2024 End: 03-06-2024 take 20 mL intravenously every hour 20 mL/hr, intravenous, Continuous, Starting on Nikkie 03/05/24 at 0745, Preprocedure cefTRIAXone 1000 mg injection (1 source) Cephalosporin Antibacterial Start: 01-31-2025 End: 01-31-2025 1 g, intravenous, at 100 mL/hr, Administer over 30 Minutes, Once, On Jackson 01/31/25 at 2034, For 1 dose, premix [...] Keara Mckenzie DO Start : 21-Sep-2019 Active doxylamine succinate 25 mg oral tablet (14 sources) Start: 01-13-2025 End: 05-07-2025 take 1 tablet by mouth at bedtime as needed Doxylamine Succinate (Unisom (Doxylamine)) 25 mg tablet Discontinued 25 mg PO AT BEDTIME as needed January 21, 2025 11:00pm May 07, 2025 5:34pm Start: 04-16-2019 take 1 tablet by william th at bedtime SM Sleep Aid 25 MG Oral Tablet TAKE 1 TABLET BY MOUTH AT BEDTIME Quantity: 30 Refills: 0 Start : 16-Apr-2019 Active ferrous sulfate 325 mg oral tablet [...] day Quantity: 0 Refills: 0 Ordered: 29-Sep-2019 Jackie, Darcy Status: Discontinued Generic Substitution Allowed ibuprofen 600 [...] DAILY. Quantity: 10 Refills: 0 Ordered: 11-Jul-2022 mi-[id number] DO, Brett Start : 11-Jul-2022 Active Start: 01-08-2020 inject 1 mL by intra muscular injection every three months MedroxyPROGESTERone Acetate 150 MG/ML Intramuscular Suspension INJECT 1 ML INTRAMUSCULARLY ONCE EVERY 3 MONTHS. Quantity: 1 Refills: 3 Keara Mckenzie DO Start : 08-Jan-2020 Active Milliliter Meperidine (2 sources) Opioid Agonist Start: 03-05-2024 End: 03-05-2024 intravenous, As needed, Starting on Nikkie 03/05/24 at 0727, Intraprocedure methylPREDNISolone (1 source) Corticosteroid Depo-Medrol (PF) SUSP Quantity: 0 Refills: 0 Ordered: 07-Mar-2022 DO Active 2 ml midazolam 5 mg/ml injection (2 sources) Benzodiazepine Start: 03-05-2024 End: 03-05-2024 intravenous, Administer [...] CAPSULE TWICE DAILY. Quantity: 14 Refills: 0 Jonah Keara GILMAN Start : 12-Oct-2019 Active No Reported Medications (1 source) No Reported Medications Quantity: 0 Refills: 0 Ordered: 16-Jan-2022 DO Active 2 ml ondansetron 2 mg/ml injection (16 sources) Serotonin-3 Receptor Antagonist Start: 01-31-2025 End: 01-31-2025 4 mg, intravenous, Once, On Jackson 01/31/25 at 1845, For 1 dose, When administering via IV Push, administer over 3-5 minutes. Start: 01-22-2025 End: 05-07-2025 take 1 tablet by mouth every six hours as needed Ondansetron Hcl 4 mg tablet Discontinued 4 mg PO EVERY 6 HOURS as needed January 21, 2025 11:00pm May 07, 2025 5:34pm Start: 01-30-2024 End: 02-06-2024 take 1 tablet [...] DAILY. Quantity: 30 Refills: 11 Ordered: 11-Jul-2022 ni-EYDEWA-FswijKeara Andres DO Start : 11-Jul-2022 Active Start: 07-11-2022 take 1 tablet by william th once daily Vitamin Plus Low Iron 27-1 MG Oral Tablet TAKE 1 TABLET DAILY. Quantity: 30 Refills: 11 Ordered: 11-Jul-2022 Keara Mckenzie DO Start : 11-Jul-2022 Active Vitamin Plus Low Iron 27-1 MG TABS (3 sources) Start: 07-11-2022 Vitam in Plus Low Iron 27-1 MG TABS TAKE 1 TABLET DAILY. Quantity: 30 Refills: 11 Ordered: 11-Jul-2022 dr-QIAEBB-ZwqeyKeara Andres DO Start : 11-Jul-2022 Active Vitamins TABS (5 sources) Vitamin s TABS Refills: 0 DO Active Vitamin s TABS Refills: 0 Active promethazine hydrochloride 12.5 mg oral tablet (10 sources) Phenothiazine Start: 03-25-2025 End: 05-07-2025 take 1 tablet by mouth every six hours as needed for nausea and vomiting Promethazine 12.5 mg tablet Discontinued 12.5 mg PO EVERY 6 HOURS as needed for nausea and vomiting 60 2 March 24, 2025 11:00pm May 07, 2025 5:34pm Start: 06-08-2024 End: 09-06-2024 take 1 tablet by mouth every six hours for nausea promethazine (Phenergan) 25 mg tablet Indications: Amenorrhea Take 1 tablet (25 mg) by mouth every 6 hours if needed for nausea or vomiting. 20 tablet 6 06/08/2024 09/06/2024 Active sertraline 25 mg oral tablet (2 [...] mouth once daily Quantity: 30 Refills: 3 Keara Mckenzie DO Start : 08-Jan-2020 Active 1000 ml sodium [...] may affect the action of this medication. vitamin b6 10 mg oral tablet (13 sources) Start: 01-22-2025 End: 05-07-2025 take 1 tablet by mouth once daily Pyridoxine (Vitamin B6) 10 mg tablet Discontinued 10 mg PO daily January 21, 2025 11:00pm May 07, 2025 5:34pm Start: 04-16-2019 take 1 tablet by william th twice daily Vitamin B-6 50 MG Oral Tablet TAKE 1 TABLET BY MOUTH TWICE DAILY Quantity: 60 Refills: 0 Start : 16-Apr-2019 Active Problems Active Problems Problem Classification Problem Date Documented Da te Episodic/Chronic Anxiety disorders (20 sources) Mixed anxiety and depressive disorder; Translations: [Anxiety state, unspecified] Onset: 01-01-2023 01-23-2023 Chronic Comment on above: 03/07/22: GAD7: severe anxiety; was on Lexapro - sto pped awhile ago was on Lexapro - sto pped awhile ago; stable Calculus of urinary tract (2 sources) Personal [...] Hemorrhage during ; abruptio placenta; placenta previa (20 sources) Threatened miscarriage; Translations: [Threatened , unspecified as to episode of care or not applicable] Onset: 10-22-2022 10-21-2022 Episodic Comment on above: Rpt US 28 wk to rech garrett cervix; pelvic rest Immunizations and screening for infectious disease (1 source) Encounter for immunization; Translations: [Encounter for immunization] Onset: 07-06-2025 Episodic Menstrual disorders (20 sources) Amenorrhea; Translations: [Absence of menstruation] Onset: 01-01-2023 Resolved: 10-29-2023 10-18-2022 Chronic Mood disorders (20 sources) Severe major depression, single episode, without psychotic features; Translations: [Major depressive affective disorder, single episode, severe, without mention of psychotic behavior] Onset: 01-01-2023 01-23-2023 Chronic Comment on above: 03/07/22 PHQ9 Se eduardo depression; Mood disorders (3 sources) Mood disorders; Translations: [Depression, unspecified] Onset: 12-27-2022 Noninfectious gastroenteritis (7 sources) Colitis; Translations: [Noninfective gastroenteritis and colitis, unspecified] Onset: 03-05-2024 01-30-2024 Episodic Nonspecific chest pain (1 source) Chest pain, unspecified; Translations: [Chest pain, unspecified] Onset: 11-06-2022 Episodic Other aftercare (1 source) Other technician terminal and repeater (current) drug therapy; Translations: [Other mcc (current) drug therapy] Onset: 12-27-2022 Episodic Other [...] trimester] 01-22-2025 Episodic Comment on above: , MYRON 09/02/25, P C: Nathalie, BF: Johny PRR , MYRON 5, PC: Nathalie, BF: Johny PRR , MYRON 5,boy den PC: Nathalie, BF: Johny Other complications of (2 sources) Mild hyperemesis gravidarum; Translations: [Mild hyperemesis gravidarum ([facility])] Onset: 01-31-2025 Episodic Other complications of (2 sources) Vomiting of , unspecified; Translations: [Vomiting of , unspecified] Onset: 01-13-2025 Episodic Other complications of (12 sources) Vaginal discharge; Translations: [Other specified related conditions, unspecified trimester] 05-20-2025 Episodic Comment on above: rom neg Other complications of (2 sources) Uterine size-date discrepancy, unspecified trimester; Translations: [Uterine size-date discrepancy, unspecified trimester] Onset: 08-05-2025 Episodic Other complications of (2 sources) Supervision of with other poor reproductive or obstetric history, unspecified trimester; Translations: [Supervision of with other poor reproductive or obstetric history, unspecified trimester] Onset: 05-18-2025 Episodic Other complications of (1 source) Uterine size-date discrepancy, third trimester; Translations: [Uterine size-date discrepancy, third trimester] Onset: 08-09-2025 Episodic Other complications of (2 sources) Supervision of high risk , unspecified, third trimester; Translations: [Supervision of high risk , unspecified, third trimester] Onset: 08-05-2025 Episodic Other complications of (2 sources) Supervision of high risk , unspecified, second trimester; Translations: [Supervision of high risk , unspecified, second trimester] Onset: 05-18-2025 Episodic Other complications of (1 source) Other specified related conditions, unspecified trimester; Translations: [Other specified related conditions, unspecified trimester] Onset: 05-18-2025 Episodic Other complications of (2 sources) Uterine size for dates discrepancy; Translations: [Uterine size-date discrepancy, third trimester] 08-05-2025 Episodic Other connective tissue disease (2 sources) [...] vaginal bleeding, unspecified] Onset: 10-30-2024 Chronic Other female genital disorders (2 sources) Other specified noninflammatory disorders of vagina; Translations: [Other specified noninflammatory disorders of vagina] Onset: 05-18-2025 Episodic Other gastrointestinal disorders (1 source) Acute diarrhea [...] 10-22-2022 Episodic Residual codes; unclassified (1 source) 36 weeks gestation of ; Translations: [36 weeks gestation of ] Onset: 08-09-2025 Episodic Residual codes; unclassified (1 source) 25 weeks gestation of ; Translations: [25 weeks gestation of ] Onset: 05-20-2025 Episodic Residual codes; unclassified (2 sources) 21 weeks gestation of ; Translations: [21 weeks gestation of ] Onset: 04-23-2025 Episodic Substance-related disorders (1 source) Nicotine dependence, [...] 10-21-2022 Comment on above: VAG BLEED (8WEEKS AK EG) Unclassified (1 source) NEW OB EST [...] Other Problems Problem Classification Problem Date Documented Da te Episodic/Chronic Abdominal pain (20 sources) Pain in [...] urine; Translations: [H/O: hematuria] Resolved: 10-22-2019 Episodic Nonmalignant breast conditions (14 sources) Nonpuerperal mastitis; Translations: [Inflammatory disease of breast] Onset: 11-06-2022 Resolved: 01-23-2023 11-06-2022 Episodic Other complications of (1 source) Supervision of high risk , unspecified, unspecified trimester; Translations: [Supervision of high risk , unspecified, unspecified trimester] Onset: 03-01-2025 Episodic Other female genital disorders (20 sources) [...] Episodic Poisoning by other medications and drugs (11 sources) Poisoning by unspecified drug or medicinal substance; Translations: [Drug overdose] Onset: 01-01-2023 Resolved: 01-23-2023 12-27-2022 Episodic Residual codes; unclassified (14 sources) Body mass index 20-24 - normal; Translations: [Body Mass Index between 19-24, adult] Onset: 01-23-2023 01-23-2023 Episodic Residual codes; unclassified (1 source) 12 weeks gestation of ; Translations: [12 weeks gestation of ] Onset: 02-24-2025 Episodic Screening and history of mental health and substance abuse codes (13 sources) Mental state finding; Translations: [Other abnormal clinical findings] Resolved: 10-17-2022 Episodic Suicide and intentional self-inflicted injury (15 sources) Suicidal thoughts; Translations: [Suicidal ideation] Onset: 12-27-2022 Resolved: 01-23-2023 12-27-2022 Episodic Superficial injury; contusion (2 sources) Contusion of left foot, initial encounter; Translations: [Contusion of left foot, initial encounter] Onset: 05-02-2024 Episodic Unclassified (7 sources) Onset: 10-31-2023 Resolved: 01-30-2024 10-31-2023 Unclassified (1 source) Pain in pelvis; Translations: [Pelvic pain] Onset: 01-01-2023 Resolved: 01-23-2023 01-23-2023 NEGATED: Highlighted row has not occurred!Residual codes; unclassified (12 sources) Disease Episodic Results Test Name Value Interpretation Reference Range Facility Laboratory - Chemistry and C hemistry - challengeOrdered By: Mariajose Ayala on 08-09-2025 Glucose Ql (U) Negative [facility] - UrinalysisOrder ed By: Mariajose Ayala on 08-09-2025 Protein Ql (U) Negative [facility] Soccer Referee Office Visit Reporton 08-09-2025 Soccer Referee Office Visit Report [facility] [address], [address] [place] [address] OFFICE VISIT Date of Service: 08/09/25 MR#: [id number] Acct: [id number] Name: DEBI VERDUZCO Rep #: [id number] : 2000 Provider: BOB Veloz ams Age/Sex: 25/F Location: [facility] Status: Signed Intake Vital Signs 07/06/25 09:56 08/04/25 12:44 08/05/25 13:00 08/09/25 09:05 Height 5 ft 5 in 5 ft 5 in 5 ft 5 in 5 ft 5 in Weight: 164 lb 2 oz 169 lb 5 oz BMI 27.3 28.1 BP 115/72 106/78 Intake Visit Reasons: 37wk ob [address] Freight Required: No Is patient in pain?: No Allergies No Known Allergies Allergy (Verified 08/09/25 09:07) Medications ???Medication ???Instructions ???Recorded ???Confirmed ???Type vits no.130-ferrous fum 1 tab PO QDAY 01/05/25 08/09/25 Hi story 27 mg iron-folic acid 800 mcg tablet ( Vitamin) famotidine 20 mg tablet (Pepcid) 20 mg PO QDAY #30 tabs 06/07/25 Rx ferrous gluconate 324 mg (38 mg 324 mg PO QDAY 90 days #90 tabs 08/09/25 Rx iron) tablet cephalexin 500 mg capsule 500 mg PO Q6 7 days #28 caps 08/0408/09/25 Rx Last Menstrual Period: 11/26/24 Zika: Zika virus screening: Negative : No Have you fallen in the past year?: No PFSH PFSH Surgical History S/P tonsillectomy and adenoidectomy Social History adopted: No household members: significant other and children number of children: 1 current occupation: [employer] current occupational exposures/hazards: No pets and animals: [...] physical activity do you participate in: none dania/spiritism: None seatbelt use: never do you feel safe at home: Yes additional social history: Boyfriend: Johny - Works at [employer] History 4 Elective abortions Hx Para 1 Spontaneous abortions 2 Hx # Term Pregnancies 1 Ectopic pregnancies Hx # Pregnancies Multiple births # of living children 1 Past Pregnancies Del. Date Name GA/Weeks Outcome Route Bth Weight Gen Labor Lgth Anesthesia Del Locatn Provider FOB 11/23/19 Isabela 39 live - full term 6lbs 12oz Female epidural [facility] Johny 09/30/21 8 spontaneous 07/08/24 8 spontaneous Delivery Date: 11/23/19 Last Updated by: Tamar Chan RN No complications - Induced d/t discomfort HPI 37wk ob Details: DEBI VERDUZCO is a 25 year old who presents for routine OB visit. OB Visit MYRON Calculator Estimated Delivery Date Method Current WG Current Estimate 09/02/25 LMP (Certain) 36w 4d Other Estimates 09/02/25 Ultrasound #1 36w 4d 09/02/25 Ultrasound #2 36w 4d Expected Delivery Route/Plan Labor Preferences- CB/BF classes: no labor support person: Esequiel labor intervention preferences: [] pain management options preferred: epidural cut cord/dad catch: yes : yes PP control planned: yes discussed possible routes of delivery and associated risks: [] special requests: [] Specific Issue/Plans Covid status: [] Flu vaccine: given Tdap vaccine: given Rhogam: na LARC form signed: yes Problem list reviewed and updated with the [...] dates. accepts NIPT. [facility] [employer]no complications. KW- CRL cons with dates. accepts N IPT. [facility] [employer]-no complications. having significant nausea and vomiting. standing order for IV infusions (more content not included)... [facility] Rule out Beta Strep (Grp. B) on 08-07-2025 ASHIA Group B Beta Streptococcus is not isolated. Normal [facility] Comment on above: Performed By: #### M 100.5221 #### [facility] [place], [address] Laboratory - Chemistry and C hemistry - challengeOrdered By: Meena Us on 08-05-2025 Glucose Ql (U) Negative [facility] - UrinalysisOrder ed By: Meena Us on 08-05-2025 Protein Ql (U) Negative [facility] Soccer Referee Office Visit Reporton 08-05-2025 Soccer Referee Office Visit Report [facility]'[address], [address] [place] [address] OFFICE VISIT Date of Service: 08/05/25 MR#: [id number] Acct: [id number] Name: DEBI VERDUZCO Rep #: [id number] : 2000 Provider: Dr. Meena menendez MD Age/Sex: 25/F Location: [facility] Status: Signed Intake Vital Signs 07/06/25 09:56 07/21/25 09:44 08/04/25 12:44 08/05/25 13:00 Height 5 ft 5 in 5 ft 5 in 5 ft 5 in 5 ft 5 in Weight: 164 lb 2 oz BMI 27.3 BP 115/72 Intake Visit Reasons: 36wk ob [address] Freight Required: No Is patient in pain?: No Allergies No Known Allergies Allergy (Verified 08/05/25 13:04) Medications ???Medication ???Instructions ???Recorded ???Confirmed ???Type vits no.130-ferrous fum 1 tab PO QDAY 01/05/25 08/05/25 Hi story 27 mg iron-folic acid 800 mcg tablet ( Vitamin) famotidine 20 mg tablet (Pepcid) 20 mg PO QDAY #30 tabs 06/07/25 Rx ferrous gluconate 324 mg (38 mg 324 mg PO QDAY 90 days #90 tabs 08/05/25 Rx iron) tablet cephalexin 500 mg capsule 500 mg PO Q6 7 days #28 caps 08/0408/05/25 Rx Last Menstrual Period: 11/26/24 Zika: Zika virus screening: Negative : No PFSH PFSH Surgical History S/P tonsillectomy and adenoidectomy Social History adopted: No household members: significant other and children number of children: 1 current occupation: [employer] current occupational exposures/hazards: No pets and animals: [...] physical activity do you participate in: none dania/spiritism: None seatbelt use: never do you feel safe at home: Yes additional social history: Boyfriend: Johny - Works at [employer] History 4 Elective abortions Hx Para 1 Spontaneous abortions 2 Hx # Term Pregnancies 1 Ectopic pregnancies Hx # Pregnancies Multiple births # of living children 1 Past Pregnancies Del. Date Name GA/Weeks Outcome Route Bth Weight Gen Labor Lgth Anesthesia Del Locatn Provider FOB 11/23/19 Isabela 39 live - full term 6lbs 12oz [facility] 09/30/21 8 spontaneous 07/08/24 8 spontaneous Delivery Date: 11/23/19 Last Updated by: Tamar Chan RN No complications - Induced d/t discomfort HPI 36wk ob Details: DEBI VERDUZCO is a 25 year old who presents for routine OB visit. OB Visit MYRON Calculator Estimated Delivery Date Method Current WG Current Estimate 09/02/25 LMP (Certain) 36w 0d Other Estimates 09/02/25 Ultrasound #1 36w 0d 09/02/25 Ultrasound #2 36w 0d Expected Delivery Route/Plan Labor Preferences- CB/BF classes: no labor support person: Esequiel labor intervention preferences: [] pain management options preferred: epidural cut cord/dad catch: yes : yes PP control planned: yes discussed possible routes of delivery and associated risks: [] special requests: [] Specific Issue/Plans Covid status: [] Flu vaccine: given Tdap vaccine: given Rhogam: na LARC form signed: yes Problem list reviewed and updated with the [...] dates. accepts NIPT. [facility] [employer] [employer]no complications. KW- CRL cons with dates. accepts N IPT. had [facility] baby [facility] [employer]-no complications. having significant nausea and vomiting. standing order for IV infusions 02/19/25 -???-???-???-???-???-??? -???-???-???-???-? (more content not included)... Normal [facility] Screening beta-hemolytic Str eptococcus cultureOrdered By: Meena Us on 08-05-2025 Beta-hemolytic Streptococcus culture Group B Beta Streptococcus is not isolated. [facility] Urine Cultureon 08-05-2025 URC Culture exhibits no growth. Normal [facility] Comment on above: Performed By: #### M 100.2945 ####[facility] [id number] [place], [place], [address] (ROM) Rupture Of Membraneson 08-04-2025 ROM Negative Normal Negative [facility] Comment on above: Result Comment: Amni otic fluid not present indicates No Rupture of Membranes at time of specimen collection. Performed By: #### L 400.2011, L205.1000 #### [facility] [address] [place], [address] Bilirubin Test strip Ql (U)O rdered By: Meena Us on 08-04-2025 Bilirubin Ql (U) Negative Negative [facility] Ketones Test strip Ql (U)Ord ered By: Meena Us on 08-04-2025 Ketones Ql (U) Negative Negative [facility] Nitrite Test strip Ql (U)Ord ered By: Meena Us on 08-04-2025 Nitrite Ql (U) Negative Negative [facility] OB Triage Progress Noteon OB Triage Progress Note [facility] Medical Records Department [address] [place] [address] OB Triage Progress Note 08/04/25 1355 MR#: [id number] Acct: [id number] Name: DEBI VERDUZCO Rep #: [id number] : 2000 25 From: Meena Us MD PCP: [facility] Caballero Status:DEP CLI Y DOS: Location: WPOUT Progress Notes Progress Note: Patient presents for triage evaluation secondary to dec fm possible srom FHT: 150 Moderate variability reactive no decelerations category I tracing [place]: irregulr Contractions Assessment and plan: 35 week dec fm amniontic membranes intact rom plus neg Reactive NST, reassuring maternal and status patient discharged to home to follow-up as scheduled. suspect uti ordered keflex, culture sent. See problem list details for additional plan information. Laboratory Studies: Laboratory Tests 08/04/25 08/04/25 Range/Units 12:25 11: Urine Color Yellow (Yellow) Urine Clarity Sl. Cloudy (Clear) Urine pH 6.0 (5.0 - 8.0) Ur Specific [place] 1.020 (1.002-1.030) Urine Protein 30 H (Negative) mg/dl Urine Glucose (UA) Normal (Normal) mg/dl Urine Ketones Negative (Negative) mg/dl Urine Occult Blood 25 H (Negative) /ul Urine Nitrite Negative (Negative) Urine Bilirubin Negative (Negative) mg/dL Urine Urobilinogen Normal (Normal) mg/dl Ur Leukocyte Esterase 500 H (Negative) /ul Vag Amniotic Fld Detect Negative (Negative) Charges/Coding Procedures Urinary/Genital 52xxx-59xxx: [id number] non-stress test Interp 08/04/25 1402 Date Meena Us MD Cosigner Signature (if applicable): Date CC: [facility] [place]; Dr. Meena Us MD Signed Normal [facility] Protein Test strip Ql (U)Ord ered By: Meena Us on 08-04-2025 Protein Ql (U) 30 mg/dl High Negative [facility] Urinalysis, Routine (Dipstic k)on 08-04-2025 BILIRUBIN URINE Negative Normal Negative [facility] Comment on above: Order Comment: CLEAN CATCH Performed By: #### L 400.2010, #### [facility] [address] [place], [place], [address] Clarity (U) Sl. Cloudy Normal Clear [facility] Comment on above: Order Comment: CLEAN CATCH Performed By: #### L 400, #### [facility] [address] [place], [address] Color (U) Yellow Normal Yellow [facility] Comment on above: Order Comment: CLEAN CATCH Performed By: #### L 400.2010, #### [facility] [address] [place], [address] GLUCOSE, UR Normal Normal Normal [facility] Comment on above: Order Comment: CLEAN CATCH Performed By: #### L 400.2010, L2.1000 #### [facility] [address] [place], [address] KETONE UR Negative Normal Negative [facility] Comment on above: Order Comment: CLEAN CATCH Performed By: #### L 400.2010, L205.1000 #### [facility] [address] [place], [address] LEUK ESTERASE 500 /ul Abnormal Negative [facility] Comment on above: Order Comment: CLEAN CATCH Performed By: #### L 400.2010, L2.1000 #### [facility] [address] [place], [address] Nitrite Ql (U) Negative Normal Negative [facility] Comment on above: Order Comment: CLEAN CATCH Performed By: #### L 400.2010, L2.999 #### [facility] [address] [place], [address] OCCULT BLOOD-UR 25 /ul Abnormal Negative [facility] Comment on above: Order Comment: CLEAN CATCH Performed By: #### L 400.2010, L2.1000 #### [facility] [address] [place], [address] pH UR 6.0 Normal 5.0 - 8.0 [facility] Comment on above: Order Comment: CLEAN CATCH Performed By: #### L 400.2010, L2.1000 #### [facility] [address] [place], [address] PROT DIPSTX 30 mg/dl Abnormal Negative [facility] Comment on above: Order Comment: CLEAN CATCH Performed By: #### L 400.2010, L2.1000 #### [facility] [address] [place], [address] SP.GR. DIPSTX 1.020 Normal 1.002-1.030 [facility] Comment on above: Order Comment: CLEAN CATCH Performed By: #### L 400.2010, L205.1000 #### [facility] [address] [place], [place], [address] UROBILI Normal Normal Normal [facility] Comment on above: Order Comment: CLEAN CATCH Performed By: #### L 400.2010, L205.1000 #### [facility] [address] [place], [address] Urine clarityOrdered By: Noel Us on 08-04-2025 Clarity (U) Sl. Cloudy Clear [facility] Urine color determinationOrd ered By: Meena Us on 08-04-2025 Color (U) Yellow Yellow [facility] Urine cultureOrdered By: Noel Us on 08-04-2025 Bacteria identified Cx Nom (U) Culture exhibits no growth. [facility] Urine glucose detectionOrder ed By: Meena Us on 08-04-2025 Glucose Ql (U) Normal mg/dl Normal [facility] Urine leukocyte esterase det ection by dipstickOrdered By: Meena Us on 08-04-2025 Leukocyte esterase Test strip Ql (U) 500 /ul High Negative [facility] Urine pHOrdered By: Meena clay on 08-04-2025 pH (U) 6.0 [pH] 5.0 - 8.0 [facility] Urine specific gravity measu rementOrdered By: Meena Us on 08-04-2025 Specific gravity (U) [Rel density] 1.020 1.002-1.030 [facility] Urine urobilinogen measureme ntOrdered By: Meena Us on 08-04-2025 Urobilinogen Ql (U) Normal mg/dl Normal [facility] Laboratory - Chemistry and C hemistry - challengeOrdered By: Aisha Vitale on 07-21-2025 Glucose Ql (U) Negative [facility] - UrinalysisOrder ed By: Aisha Vitale on 07-21-2025 Protein Ql (U) Negative [facility] Soccer Referee Office Visit Reporton 07-21-2025 Soccer Referee Office Visit Report [facility] [address] [place] [address], [address] [place] [address] OFFICE VISIT Date of Service: 07/21/25 MR#: [id number] Acct: [id number] Name: DEBI VERDUZCO Rep #: [id number] : 2000 Provider: CONCEPCION gamino Age/Sex: 25/F Location: [facility] Status: Signed Intake Vital Signs 06/22/25 12:57 07/06/25 09:56 07/21/25 09:44 Height 5 ft 5 in 5 ft 5 in 5 ft 5 in Weight: 161 lb 1 oz BMI 26.8 BP 108/72 Intake Visit Reasons: 33 WK 6D [address] Freight Required: No Is patient in pain?: No Allergies No Known Allergies Allergy (Verified 07/21/25 09:43) Medications ???Medication ???Instructions ???Recorded ???Confirmed ???Type vits no.130-ferrous fum 1 tab PO QDAY 01/05/25 07/21/25 Hi story 27 mg iron-folic acid 800 mcg tablet ( Vitamin) famotidine 20 mg tablet (Pepcid) 20 mg PO QDAY #30 tabs 06/07/25 Rx ferrous gluconate 324 mg (38 mg 324 mg PO QDAY 90 days #90 tabs 07/21/25 Rx iron) tablet Last Menstrual Period: 11/26/24 Zika: Zika virus screening: Negative : No PFSH PFSH Surgical History S/P tonsillectomy and adenoidectomy Social History adopted: No household members: significant other and children number of children: 1 current occupation: [employer] current occupational exposures/hazards: No pets and animals: [...] physical activity do you participate in: none dania/spiritism: None seatbelt use: never do you feel safe at home: Yes additional social history: Boyfriend: Johny - Works at [employer] History 4 Elective abortions Hx Para 1 Spontaneous abortions 2 Hx # Term Pregnancies 1 Ectopic pregnancies Hx # Pregnancies Multiple births # of living children 1 Past Pregnancies Del. Date Name GA/Weeks Outcome Route Bth Weight Infant Gen Labor Lgth Anesthesia Del Locatn Provider FOB 11/23/19 Isabela 39 live - full term 6lbs 12oz [facility] 09/30/21 8 spontaneous 07/08/24 8 spontaneous Delivery Date: 11/23/19 Last Updated by: Tamar Chan RN No complications - Induced d/t discomfort HPI 33 WK 6D OB Details: DEBI VERDUZCO is a 25 year old who presents for routine OB visit. OB Visit MYRON Calculator Estimated Delivery Date Method Current WG Current Estimate 09/02/25 LMP (Certain) 33w 6d Other Estimates 09/02/25 Ultrasound #1 33w 6d 09/02/25 Ultrasound #2 33w 6d Expected Delivery Route/Plan Labor Preferences- CB/BF classes: no labor support person: Esequiel labor intervention preferences: [] pain management options preferred: epidural cut cord/dad catch: yes : yes PP control planned: yes discussed possible routes of delivery and associated risks: [] special requests: [] Specific Issue/Plans Covid status: [] Flu vaccine: given Tdap vaccine: given Rhogam: na LARC form signed: yes Problem list reviewed and updated with the [...] dates. accepts NIPT. [facility] [employer]no complications. KW- CRL cons with dates. accepts N IPT. had last baby [facility] [employer]-no complications. having significant nausea and vomiting. standing order for IV infusions 02/19/25 -???-???-???-???-???-??? -???-???-???-???-???-??? - 12w 1d 137 lb 2 oz (-14 oz) 120/80 Negative -???-???-???-???-???-??? -???-???-???-???-???-??? - Negat (more content not included)... Normal [facility] - Chemistry and C hemistry - challengeOrdered By: Colleen Dillard on 07-06-2025 Glucose Ql (U) Negative [facility] - UrinalysisOrder ed By: Colleen Dillard on 07-06-2025 Protein Ql (U) Negative [facility] Soccer Referee Office Visit Reporton 07-06-2025 Soccer Referee Office Visit Report [facility] [address], [address] [place] [address] OFFICE VISIT Date of Service: 07/06/25 MR#: [id number] Acct: [id number] Name: DEBI VERDUZCO Rep #: [id number] : 2000 Provider: Dr. Cloleen Brannon DO Age/Sex: 25/F Location: [facility] Status: Signed Intake Vital Signs 05/20/25 13:53 06/22/25 12:57 07/06/25 09:56 Height 5 ft 5 in 5 ft 5 in 5 ft 5 in Weight: 156 lb 3 oz BMI 25.9 BP 112/73 Intake Visit Reasons: 31 WK 5B [address] Freight Required: No Is patient in pain?: No Allergies No Known Allergies Allergy (Verified 07/06/25 09:57) Medications ???Medication ???Instructions ???Recorded ???Confirmed ???Type vits no.130-ferrous fum 1 tab PO QDAY 01/05/25 07/06/25 Hi story 27 mg iron-folic acid 800 mcg tablet ( Vitamin) famotidine 20 mg tablet (Pepcid) 20 mg PO QDAY #30 tabs 06/07/25 Rx ferrous gluconate 324 mg (38 mg 324 mg PO QDAY 90 days #90 tabs 07/06/25 Rx iron) tablet Last Menstrual Period: 11/26/24 Zika: Zika virus screening: Negative : No PFSH PFSH Surgical History S/P tonsillectomy and adenoidectomy Social History adopted: No household members: significant other and children number of children: 1 current occupation: [employer] current occupational exposures/hazards: No pets and animals: [...] physical activity do you participate in: none dania/spiritism: None seatbelt use: never do you feel safe at home: Yes additional social history: Boyfriend: Johny - Works at [employer] History 4 Elective abortions Hx Para 1 Spontaneous abortions 2 Hx # Term Pregnancies 1 Ectopic pregnancies Hx # Pregnancies Multiple births # of living children 1 Past Pregnancies Del. Date Name GA/Weeks Outcome Route Bth Weight Gen Labor Lgth Anesthesia Del Locatn Provider FOB 11/23/19 Isabela 39 live - full term 6lbs 12oz [facility] 09/30/21 8 spontaneous 07/08/24 8 spontaneous Delivery Date: 11/23/19 Last Updated by: Tamar Chan RN No complications - Induced d/t discomfort HPI 31 WK 5B OB Details: DEBI VERDUZCO is a 25 year old who presents for routine OB visit. OB Visit MYRON Calculator Estimated Delivery Date Method Current WG Current Estimate 09/02/25 LMP (Certain) 31w 5d Other Estimates 09/02/25 Ultrasound #1 31w 5d 09/02/25 Ultrasound #2 31w 5d Expected Delivery Route/Plan Labor Preferences- CB/BF classes: no labor support person: Esequiel labor intervention preferences: [] pain management options preferred: epidural cut cord/dad catch: yes : yes PP control planned: yes discussed possible routes of delivery and associated risks: [] special requests: [] Specific Issue/Plans Covid status: [] Flu vaccine: [] Tdap vaccine: [] Rhogam: na LARC form signed: yes Problem list reviewed and updated with the [...] dates. accepts NIPT. [facility] [employer]no complications. KW- CRL cons with dates. accepts N IPT. had last baby [facility] [employer]-no complications. having significant nausea and vomiting. standing order for IV infusions 02/19/25 -???-???-???-???-???-??? -???-???-???-???-???-??? - 12w 1d 137 lb 2 oz (-14 oz) 120/80 Negative -???-???-???-???-???-??? -???-???-???-???-???-??? - Nega (more content not included)... Normal [facility] - Chemistry and C hemistry - challengeOrdered By: Mariajose Ayala on 06-22-2025 Glucose Ql (U) Negative [facility] - UrinalysisOrder ed By: Mariajose Ayala on 06-22-2025 Protein Ql (U) Negative [facility] Soccer Referee Office Visit Reporton 06-22-2025 Soccer Referee Office Visit Report [facility] [address], [address] [place] [address] OFFICE VISIT Date of Service: 06/22/25 MR#: [id number] Acct: [id number] Name: DEBI VERDUZCO Rep #: [id number] : 2000 Provider: BOB Veloz ams Age/Sex: 25/F Location: [facility] Status: Signed Intake Vital Signs 04/23/25 10:49 06/07/25 13:30 06/22/25 12:57 Height 5 ft 5 in 5 ft 5 in 5 ft 5 in Weight: 152 lb 1 oz BMI 25.2 BP 107/72 Intake Visit Reasons: 30 WK OB Chief Complaint: 30wk OB [address] Freight Required: No Is patient in pain?: No Allergies No Known Allergies Allergy (Verified 06/22/25 12:55) Medications ???Medication ???Instructions ???Recorded ???Confirmed ???Type vits no.130-ferrous fum 1 tab PO QDAY 01/05/25 06/22/25 Hi story 27 mg iron-folic acid 800 mcg tablet ( Vitamin) famotidine 20 mg tablet (Pepcid) 20 mg PO QDAY #30 tabs 06/07/25 Rx Last Menstrual Period: 11/26/24 PFSH PFSH Surgical History S/P tonsillectomy and adenoidectomy Social History adopted: No household members: significant other and children number of children: 1 current occupation: [employer] current occupational exposures/hazards: No pets and animals: [...] physical activity do you participate in: none dania/spiritism: None seatbelt use: never do you feel safe at home: Yes additional social history: Boyfriend: Johny - Works at [employer] History 4 Elective abortions Hx Para 1 Spontaneous abortions 2 Hx # Term Pregnancies 1 Ectopic pregnancies Hx # Pregnancies Multiple births # of living children 1 Past Pregnancies Del. Date Name GA/Weeks Outcome Route Bth Weight Infant Gen Labor Lgth Anesthesia Del Locatn Provider FOB 11/23/19 Nathalie 39 live - full term 6lbs 12oz [facility] 09/30/21 8 spontaneous 07/08/24 8 spontaneous Delivery Date: 11/23/19 Last Updated by: Tamar Chan RN No complications - Induced d/t discomfort HPI 30 WK OB Details: DEBI VERDUZCO is a 25 year old who presents for routine OB visit. OB Visit MYRON Calculator Estimated Delivery Date Method Current WG Current Estimate 09/02/25 LMP (Certain) 29w 5d Other Estimates 09/02/25 Ultrasound #1 29w 5d 09/02/25 Ultrasound #2 29w 5d Expected Delivery Route/Plan Labor Preferences- CB/BF classes: no labor support person: Esequiel labor intervention preferences: [] pain management options preferred: epidural cut cord/dad catch: yes : yes PP control planned: yes discussed possible routes of delivery and associated risks: [] special requests: [] Specific Issue/Plans Covid status: [] Flu vaccine: [] Tdap vaccine: [] Rhogam: na LARC form signed: yes Problem list reviewed and updated with the [...] dates. accepts NIPT. [facility] [employer]no complications. KW- CRL cons with dates. accepts N IPT. had last baby [facility] [employer]-no complications. having significant nausea and vomiting. standing order for IV infusions 02/19/25 -???-???-???-???-???-??? -???-???-???-???-???-??? - 12w 1d 137 lb 2 oz (-14 oz) 120/80 Negative -???-???-???-???-???-??? -???-???-???-???-???-??? - Negative 174 -???-???-???-???-???-??? -???-???-???-???-???-??? - JV- CRL patience uring 12 weeks 2 days, pt seen for leaking fluid. no bleeding or infection signs on exa (more content not included)... Normal [facility] Absolute lymphocyte countOrd ered By: Meena Us on 06-07-2025 Lymphocytes Auto (Unsp spec) [#/Vol] 1.18 10*3/uL 0.83-4.51 [facility] Absolute neutrophil countOrd ered By: Meena Us on 06-07-2025 Neutrophils (Bld) [#/Vol] 5.7 10*3/uL 2.0-7.7 [facility] Automated lymphocyte count a s percentage of total leukocytesOrdered By: Meena Us on 06-07-2025 Lymphocytes/100 WBC Auto (Unsp spec) 15.4 % Low 19-41 [facility] Basophil percentageOrdered B y: Meena Us on 06-07-2025 Basophils/100 WBC (Bld) 0.4 % 0-1 [facility] CBC W/Diff, Automatedon Absolute Lymph 1.18 X10 3/uL Normal 0.83-4.51 [facility] Comment on above: Performed By: #### L 100.0100, L509.8002, L3890.6006, L501.0250 #### [facility] [address] [place], [address] Absolute Neut 5.7 X10 3/uL Normal 2.0-7.7 [facility] Comment on above: Performed By: #### L 100.0100, L509.8002, L3890.6006, L501.0250 #### [facility] [address] [place], [address] Basophils/100 WBC (Bld) 0.4 % Normal 0-1 [facility] Comment on above: Performed By: #### L 100.0100, L509.8002, L3890.6006, L501.0250 #### [facility] [address] [place], [address] Eosinophils/100 WBC (Bld) 1.0 % Normal 0-5 [facility] Comment on above: Performed By: #### L 100.0100, L509.8002, L3890.6006, L501.0250 #### [facility] [address] [place], [address] Erythrocyte distribution width (RBC) [Ratio] 14.2 % Normal 11.6-14.6 [facility] Comment on above: Performed By: #### L 100.0100, L509.8002, L3890.6006, L501.0250 #### [facility] [address] [place], [address] Hematocrit (Bld) [Volume fraction] 31.3 % Low 37-47 [facility] Comment on above: Performed By: #### L 100.0100, L509.8002, L3890.6006, L501.0250 #### [facility] [address] [place], [address] Hemoglobin (Bld) [Mass/Vol] 10.9 g/dL Low 12.0-15.0 [facility] Comment on above: Performed By: #### L 100.0100, L509.8002, L3890.6006, L501.0250 #### [facility] [address] [place], [address] IG% 0.700 Normal 0.0-0.9 [facility] Comment on above: Result Comment: IG% - Immature Granulocytes (promyelocytes, myelocytes and metamyelocytes) > 1% indicates that a LEFT SHIFT is Present. Performed By: #### L 100.0100, L509.8002, L3890.6006, L501.0250 #### [facility] [address] [place], [address] Lymphocytes/100 WBC (Bld) 15.4 % Low 19-41 [facility] Comment on above: Performed By: #### L 100.0100, L509.8002, L3890.6006, L501.0250 #### [facility] [address] [place], [address] MCH (RBC) [Entitic mass] 29.5 pg Normal 27.0-32.0 [facility] Comment on above: Performed By: #### L 100.0100, L509.8002, L3890.6006, L501.0250 #### [facility] [address] [place], [address] MCHC (RBC) [Mass/Vol] 34.8 g/dL Normal 32-36 [facility] Comment on above: Performed By: #### L 100.0100, L509.8002, L3890.6006, L501.0250 #### [facility] [address] [place], [address] MCV (RBC) [Entitic vol] 84.8 fL Normal 81-99 [facility] Comment on above: Performed By: #### L 100.0100, L509.8002, L3890.6006, L501.0250 #### [facility] [address] [place], [address] Monocytes/100 WBC (Bld) 8.1 % Normal 0-10 [facility] Comment on above: Performed By: #### L 100.0100, L509.8002, L3890.6006, L501.0250 #### [facility] [address] [place], [address] Neutrophils/100 WBC (Bld) 74.4 % High 47-70 [facility] Comment on above: Performed By: #### L 100.0100, L509.8002, L3890.6006, L501.0250 #### [facility] [address] [place], [address] Nucleated RBC (Bld) [#/Vol] 0 10*3/uL Normal 0-5 [facility] Comment on above: Performed By: #### L 100.0100, L509.8002, L3890.6006, L501.0250 #### [facility] [address] [place], [address] Platelet mean volume (Bld) [Entitic vol] 10.7 fL Normal 6.2-12.0 [facility] Comment on above: Performed By: #### L 100.0100, L509.8002, L3890.6006, L501.0250 #### [facility] [address] [place], [address] Platelets (Bld) [#/Vol] 223 10*3/uL Normal 150-450 [facility] Comment on above: Performed By: #### L 100.0100, L509.8002, L3890.6006, L501.0250 #### [facility] [address] [place], [address] RBC (Bld) [#/Vol] 3.69 10*6/uL Low 4.2-5.4 [facility] Comment on above: Performed By: #### L 100.0100, L509.8002, L3890.6006, L501.0250 #### [facility] [address] [place], [address] RDW SD 43.9 fl Normal 35.1-43.9 [facility] Comment on above: Performed By: #### L 100.0100, L509.8002, L3890.6006, L501.0250 #### [facility] [address] [place], [address] WBC (Bld) [#/Vol] 7.7 10*3/uL Normal 4.4-11.0 [facility] Comment on above: Performed By: #### L 100.0100, L509.8002, L3890.6006, L501.0250 #### [facility] [address] [place], [address] Eosinophil percentageOrdered By: Meena Us on 06-07-2025 Eosinophils/100 WBC (Bld) 1.0 % 0-5 [facility] Erythrocyte distribution wid th ratioOrdered By: Meena Us on 06-07-2025 Erythrocyte distribution width (RBC) [Ratio] 14.2 % 11.6-14.6 [facility] Erythrocyte distribution wid th standard deviationOrdered By: Meena Us on 06-07-2025 Erythrocyte distribution width (RBC) [Ratio] 43.9 fl 35.1-43.9 [facility] Glucose Challenge Gest 1H 50 evelyne 06-07-2025 GLU GEST 50g 1H 127 mg/dL Normal 70-140 [facility] Comment on above: Performed By: #### L 100.0100, L509.8002, L3890.6006, L501.0250 ####[facility] [address] [place], [place], [id number] Glucose measurement at 2 pedrito rs post-dose gestational glucose tolerance testOrdered By: Meena Us on 06-07-2025 Glucose [Mass/Vol] 127 mg/dL 70-140 [facility] HIVon 06-07-2025 HIV Non-Reactive Normal Nonreactive [facility] Comment on above: Result Comment: Non- Reactive Reactive Repeatedly reactive samples must be confirmed according to CDC recommended confirmatory algorithms. The subresults for either HIVAG or AHIV can be used as an aid in the selection of the confirmation algorithm for reactive samples. Send out specimens with Reactive results to [facility] for confirmation. Order the HIV antibody detection and differentiation: lc#[id number] Performed By: #### L 100.0100, L509.8002, L3890.6006, L501.0250 ####[facility] [address] [place], [place], [id number] Hematocrit Auto (Bld) [Volum e fraction]Ordered By: Meena Us on 06-07-2025 Hematocrit (Bld) [Volume fraction] 31.3 % Low 37-47 [facility] Hemoglobin measurementOrdere d By: Meena Us on 06-07-2025 Hemoglobin (Bld) [Mass/Vol] 10.9 g/dL Low 12.0-15.0 [facility] Immature granulocytes/100 WB C Auto (Bld)Ordered By: Meena Us on 06-07-2025 Immature granulocytes/100 WBC (Bld) 0.700 % 0.0-0.9 [facility] Comment on above: IG% - Immature Granu locytes (promyelocytes, myelocytes and metamyelocytes) > 1% indicates that a LEFT SHIFT is Present. MCV (mean corpuscular volume ) determinationOrdered By: Meena Us on 06-07-2025 MCV (RBC) [Entitic vol] 84.8 fL 81-99 [facility] Mean corpuscular hemoglobin (MCH) determinationOrdered By: Meena Us on 06-07-2025 MCH (RBC) [Entitic mass] 29.5 pg 27.0-32.0 [facility] Mean corpuscular hemoglobin concentration (MCHC) determinationOrdered By: Meena Us on 06-07-2025 MCHC (RBC) [Mass/Vol] 34.8 g/dL 32-36 [facility] Mean platelet volume determi nationOrdered By: Meena Us on 06-07-2025 Platelet mean volume (Bld) [Entitic vol] 10.7 fL 6.2-12.0 [facility] Monocyte percentageOrdered B y: Meena Us on 06-07-2025 Monocytes/100 WBC (Bld) 8.1 % 0-10 [facility] Neutrophil percentageOrdered By: Meena Us on 06-07-2025 Neutrophils/100 WBC (Bld) 74.4 % High 47-70 [facility] No Panel InformationOrdered By: Meena Us on 06-07-2025 HIV (1&2) Antibody Non-Reactive Nonreactive [facility] Comment on above: Non-ReactiveReactive Repeatedly reactive samples must be confirmed according to CDC recommended confirmatory algorithms. The subresults for either HIVAG or AHIV can be used as an aid in the selection of the confirmation algorithm for reactive samples.Send out specimens with Reactive results to [facility] for confirmation.Order the HIV antibody detection and differentiation: #[id number] Nucleated red blood cell per centageOrdered By: Meena Us on 06-07-2025 Nucleated RBC/100 WBC (Bld) [Ratio] 0 % 0-5 [facility] Soccer Referee Office Visit Reporton 06-07-2025 Soccer Referee Office Visit Report [facility]'s [address], [address] [place] [address] OFFICE VISIT Date of Service: 06/07/25 MR#: [id number] Acct: [id number] Name: DEBI VERDUZCO Rep #: [id number] : 2000 Provider: CONCEPCION gamino Age/Sex: 25/F Location: [facility] Status: Signed Intake Vital Signs 04/23/25 10:49 05/20/25 13:53 06/07/25 13:27 06/07/25 13:30 Height 5 ft 5 in 5 ft 5 in 5 ft 5 in 5 ft 5 in Weight: 147 lb 9 oz BMI 24.5 BP 112/73 Intake Visit Reasons: 28 WK OB/Glucose Chief Complaint: 28 Week OB/Glucose [address] Freight Required: No Is patient in pain?: No Allergies No Known Allergies Allergy (Verified 06/07/25 13:26) Medications ???Medication ???Instructions ???Recorded ???Confirmed ???Type vits no.130-ferrous fum 1 tab PO QDAY 01/05/25 06/07/25 Hi story 27 mg iron-folic acid 800 mcg tablet ( Vitamin) famotidine 20 mg tablet (Pepcid) 20 mg PO QDAY #30 tabs 06/07/25 Rx Last Menstrual Period: 11/26/24 Zika: Zika virus screening: Negative : Yes PFSH PFSH Surgical History S/P tonsillectomy and adenoidectomy Social History adopted: No household members: significant other and children number of children: 1 current occupation: [employer] current occupational exposures/hazards: No pets and animals: [...] physical activity do you participate in: none dania/spiritism: None seatbelt use: never do you feel safe at home: Yes additional social history: Boyfriend: Johny - Works at [employer] History 4 Elective abortions Hx Para 1 Spontaneous abortions 2 Hx # Term Pregnancies 1 Ectopic pregnancies Hx # Pregnancies Multiple births # of living children 1 Past Pregnancies Del. Date Name GA/Weeks Outcome Route Bth Weight Infant Gen Labor Lgth Anesthesia Del Locatn Provider FOB 11/23/19 Nathalie 39 live - full term 6lbs 12oz Female epidural [facility] Johny 09/30/21 8 spontaneous 07/08/24 8 spontaneous Delivery Date: 11/23/19 Last Updated by: Tamar Chan RN No complications - Induced d/t discomfort HPI 28 WK OB/Glucose Details: DEBI VERDUZCO is a 25 year old who presents for routine OB visit. OB Visit MYRON Calculator Estimated Delivery Date Method Current WG Current Estimate 09/02/25 LMP (Certain) 27w 4d Other Estimates 09/02/25 Ultrasound #1 27w 4d 09/02/25 Ultrasound #2 27w 4d Expected Delivery Route/Plan Labor Preferences- CB/BF classes: no labor support person: Esequiel labor intervention preferences: [] pain management options preferred: epidural cut cord/dad catch: yes : yes PP control planned: yes discussed possible routes of delivery and associated risks: [] special requests: [] Specific Issue/Plans Covid status: [] Flu vaccine: [] Tdap vaccine: [] Rhogam: na LARC form signed: yes Problem list reviewed and updated with the [...] dates. accepts NIPT. [facility] baby [facility] [employer]-no complications. KW- CRL cons with dates. accepts N IPT. had last baby at [employer]-no complications. having significant nausea and vomiting. standing order for IV infusions 02/19/25 -???-???-???-???-???-??? -???-???-???-???-???-??? - 12w 1d 137 lb 2 oz (-14 oz) 120/80 Negative -???-???-???-???-???-??? -???-???-???-???-???-??? - Negative 174 -???-???-???-???-???-??? -???- (more content not included)... Normal [facility] Platelet countOrdered By: Vish Us on 06-07-2025 Platelets (Bld) [#/Vol] 223 10*3/uL 150-450 [facility] RBC Auto (Bld) [#/Vol]Ordere d By: Meena Us on 06-07-2025 RBC (Bld) [#/Vol] 3.69 10*6/uL Low 4.2-5.4 [facility] Syphilis Antibodieson 2024 Syphilis Abs Non-Reactive Normal Nonreactive [facility] Comment on above: Performed By: #### L 100.0100, L509.8002, L3890.6006, L501.0250 ####[facility] [address] [place], [place], [id number] White blood cell (WBC) count Ordered By: Meena Us on 06-07-2025 WBC (Bld) [#/Vol] 7.7 10*3/uL 4.4-11.0 [facility] - Chemistry and C hemistry - challengeOrdered By: Meena Us on 05-20-2025 Glucose Ql (U) Negative [facility] - UrinalysisOrder ed By: Meena Us on 05-20-2025 Protein Ql (U) Negative [facility] Soccer Referee Office Visit Reporton 05-20-2025 Soccer Referee Office Visit Report [facility]'s [address], [address] [place] [address] OFFICE VISIT Date of Service: 05/20/25 MR#: [id number] Acct: [id number] Name: DAXDEBI DSOUZAN Rep #: [id number] : 2000 Provider: Dr. Meena menendez MD Age/Sex: 25/F Location: [facility] Status: Signed Intake Vital Signs 03/25/25 13:34 05/07/25 18:29 05/20/25 13:53 Height 5 ft 5 in 5 ft 5 in 5 ft 5 in Weight: 145 lb 3 oz BMI 24.1 BP 110/72 Intake Visit Reasons: [address] wk [address] Freight Required: No Is patient in pain?: No Allergies No Known Allergies Allergy (Verified 05/20/25 13:59) Medications ???Medication ???Instructions ???Recorded ???Confirmed ???Type vits no.130-ferrous fum 1 tab PO QDAY 01/05/25 05/20/25 Hi story 27 mg iron-folic acid 800 mcg tablet ( Vitamin) Last Menstrual Period: 11/26/24 Zika: Zika virus screening: Negative : No PFSH PFSH Surgical History S/P tonsillectomy and adenoidectomy Social History adopted: No household members: significant other and children number of children: 1 current occupation: [employer] current occupational exposures/hazards: No pets and animals: [...] physical activity do you participate in: none dania/spiritism: None seatbelt use: never do you feel safe at home: Yes additional social history: Boyfriend: Johny - Works at [employer] History 4 Elective abortions Hx Para 1 Spontaneous abortions 2 Hx # Term Pregnancies 1 Ectopic pregnancies Hx # Pregnancies Multiple births # of living children 1 Past Pregnancies Del. Date Name GA/Weeks Outcome Route Bth Weight Infant Gen Labor Lgth Anesthesia Del Locatn Provider FOB 11/23/19 Isabela 39 live - full term 6lbs 12oz Female epidural [facility] Johny 09/30/21 8 spontaneous 07/08/24 8 spontaneous Delivery Date: 11/23/19 Last Updated by: Tamar Chan RN No complications - Induced d/t discomfort HPI 25 wk ob Details: DEBI VERDUZCO is a 25 year old who presents for routine OB visit. OB Visit MYRON Calculator Estimated Delivery Date Method Current WG Current Estimate 09/02/25 LMP (Certain) 25w 0d Other Estimates 09/02/25 Ultrasound #1 25w 0d 09/02/25 Ultrasound #2 25w 0d Expected Delivery Route/Plan Labor Preferences- CB/BF [...] dates. accepts NIPT. [facility] [employer] [employer]-no complications. KW- CRL cons with dates. accepts N IPT. had last baby [facility] [employer]-no complications. having significant nausea and vomiting. standing order for IV infusions 02/19/25 -???-???-???-???-???-??? -???-???-???-???-???-??? - 12w 1d 137 lb 2 oz (-14 oz) 120/80 Negative -???-???-???-???-???-??? -???-???-???-???-???-??? - Negative 174 -???-???-???-???-???-??? -???-???-???-???-???-??? - JV- CRL patience uring 12 weeks 2 days, pt seen for leaking fluid. no bleeding or infection signs on exam. ultrasound looks normal. wats NIPT today. 0 (more content not included)... Normal [facility] ([facility]) Rupture Of Membraneson 05-07-2025 ROM Negative Normal Negative [facility] Comment on above: Result Comment: Amni otic fluid not present indicates No Rupture of Membranes at time of specimen collection. Performed By: #### L 205.1000 #### [facility] [address] [place], [place], [address] OB Triage Progress Noteon OB Triage Progress Note [facility] Medical Records Department [address] [place] [address] OB Triage Progress Note 05/07/25 2149 MR#: [id number] Acct: [id number] Name: DEBI VERDUZCO Rep #: [id number] : 2000 25 From: Mariajose Ayala CNM PCP: CONCEPCION Caballero Status:DEP CLI Y DOS: Location: WPOUT Progress Notes Date of Service: 05/07/25 Progress Note: Patient presents for triage evaluation secondary to vaginal discharge at 23 weeks FHT: 140 Moderate variability reactive no decelerations category I tracing-reactive for gestational age [place]: no Contractions Assessment and plan: Rom neg, Reactive NST, reassuring maternal and status patient discharged to home to follow-up in office. See problem list details for additional plan information. Laboratory Studies: Laboratory Tests 05/07/25 Range/Units 18:40 Vag Amniotic Fld Detect Negative (Negative) Charges/Coding Multi Select Codes Urinary/Genital Urinary/Genital CPT Codes: 72883-14 non-stress test Interp Assessment Plan (1) Placenta previa: COMMENT: Rpt US 28 wk to recheck cervix; pelvic rest (2) History of miscarriage, currently : COMMENT: x2 (3) Supervision of high-risk : QUALIFIERS: Trimester: second trimester Qualified Code(s): O09.92 - Supervision of high risk , unspecified, second trimester COMMENT: PRR , MYRON 09/02/25, PC: Nathalie, BF: Johny (4) : QUALIFIERS: Weeks of gestation: 21 weeks Qualified Code(s): Z3A.21 - 21 weeks gestation of COMMENT: NIPT low risk (5) Anxiety and depression: COMMENT: was on Lexapro - stopped awhile ago (6) Vaginal discharge during : COMMENT: rom neg 05/07/252150 Date Mariajose Ayala CNM Cosigner Signature (if applicable): Date CC: BOB Ayala; CONCEPCION Cary Signed Normal [facility] - Chemistry and C hemistry - challengeOrdered By: Mariajose Ayala on 04-23-2025 Glucose Ql (U) Negative [facility] - UrinalysisOrder ed By: Mariajose Ayala on 04-23-2025 Protein Ql (U) Negative [facility] Soccer Referee Office Visit Reporton 04-23-2025 Soccer Referee Office Visit Report [facility] [address], [address] [place] [address] OFFICE VISIT Date of Service: 04/23/25 MR#: [id number] Acct: [id number] Name: DEBI VERDUZCO Rep #: [id number] : 2000 Provider: BOB Veloz [facility] Age/Sex: 25/F Location: [facility] Status: Signed Intake Vital Signs 02/01/25 13:03 03/25/25 13:34 04/23/25 10:44 04/23/25 10:49 Height 5 ft 5 in 5 ft 5 in 5 ft 5 in 5 ft 5 in Weight: 138 lb 8 oz BMI 23.0 BP 108/73 Intake Visit Reasons: 21wk ob Chief Complaint: [address] Freight Required: No Is patient in pain?: No [...] children number of children: 1 current occupation: [employer] current occupational exposures/hazards: No pets and animals: [...] physical activity do you participate in: none dania/spiritism: None seatbelt use: never do you feel safe at home: Yes additional social history: Boyfriend: Johny - Works at [employer] History 4 Elective abortions Hx Para 1 Spontaneous abortions 2 Hx # Term Pregnancies 1 Ectopic pregnancies Hx # Pregnancies Multiple births # of living children 1 Past Pregnancies Del. Date Name GA/Weeks Outcome Route Bth Weight Infant Gen Labor Lgth Anesthesia Del Locatn Provider FOB 11/23/19 Isabela 39 live - full term 6lbs 12oz Female epidural [facility] Johny 09/30/21 8 spontaneous 07/08/24 8 spontaneous [...] with dates (more content not included)... Normal [facility] - Chemistry and C hemistry - challengeOrdered By: Aisha Winifred on 03-25-2025 Glucose Ql (U) Negative [facility] - UrinalysisOrder ed By: Aisha Vitale on 03-25-2025 Protein Ql (U) Negative [facility] Soccer Referee Office Visit Reporton 03-25-2025 Soccer Referee Office Visit Report [facility]'s [address], [address] [place] [address] OFFICE VISIT Date of Service: 03/25/25 MR#: [id number] Acct: [id number] Name: DEBI VERDUZCO Rep #: [id number] : 2000 Provider: CONCEPCION gamino Age/Sex: 25/F Location: [facility] Status: Signed Intake Vital Signs 02/01/25 13:03 02/24/25 13:57 03/25/25 13:34 Height 5 ft 5 in 5 ft 5 in 5 ft 5 in Weight: 135 lb BMI 22.4 BP 98/60 Intake Visit Reasons: 17wk ob Chief Complaint: [address] Freight Required: No Is patient in pain?: No [...] children number of children: 1 current occupation: [employer] current occupational exposures/hazards: No pets and animals: [...] physical activity do you participate in: none dania/spiritism: None seatbelt use: never do you feel safe at home: Yes additional social history: Boyfriend: Johny - Works at [employer] History 4 Elective abortions Hx Para 1 Spontaneous abortions 2 Hx # Term Pregnancies 1 Ectopic pregnancies Hx # Pregnancies Multiple births # of living children 1 Past Pregnancies Del. Date Name GA/Weeks Outcome Route Bth Weight Infant Gen Labor Lgth Anesthesia Del Locatn Provider FOB 11/23/19 Nathalie 39 live - full term 6lbs 12oz Female epidural [facility] Johny 09/30/21 8 spontaneous 07/08/24 8 spontaneous [...] baby at (more content not included)... Normal [facility] Absolute lymphocyte countOrd ered By: Mariajose Ayala on 02-24-2025 Lymphocytes Auto (Unsp spec) [#/Vol] 1.15 10*3/uL 0.83-4.51 [facility] Absolute neutrophil countOrd ered By: Mariajose Jamie on 02-24-2025 Neutrophils (Bld) [#/Vol] 5.8 10*3/uL 2.0-7.7 [facility] Automated lymphocyte count a s percentage of total leukocytesOrdered By: Mariajose Jamie on 02-24-2025 Lymphocytes/100 WBC Auto (Unsp spec) 14.7 % Low 19-41 [facility] Basophil percentageOrdered B y: Mariajose Ayala on 02-24-2025 Basophils/100 WBC (Bld) 0.5 % 0-1 [facility] CBC W/Diff, Automatedon 01-29 Absolute Lymph 1.15 X10 3/uL Normal 0.83-4.51 [facility] Comment on above: Performed By: #### L 3890.6006, L3890.6102, BTS, L509.8002, L509.4006, L3890.6301, L100.0100 ####[facility] [address] [place], [address] Absolute Neut 5.8 X10 3/uL Normal 2.0-7.7 [facility] Comment on above: Performed By: #### L 3890.6006, L3890.6102, BTS, L509.8002, L509.4006, L3890.6301, L100.0100 ####[facility] [address] [place], [address] Basophils/100 WBC (Bld) 0.5 % Normal 0-1 [facility] Comment on above: Performed By: #### L 3890.6006, L3890.6102, BTS, L509.8002, L509.4006, L3890.6301, L100.0100 ####[facility] [address] [place], [address] Eosinophils/100 WBC (Bld) 2.4 % Normal 0-5 [facility] Comment on above: Performed By: #### L 3890.6006, L3890.6102, BTS, L509.8002, L509.4006, L3890.6301, L100.0100 ####[facility] [address] [place], [address] Erythrocyte distribution width (RBC) [Ratio] 14.5 % Normal 11.6-14.6 [facility] Comment on above: Performed By: #### L 3890.6006, L3890.6102, BTS, L509.8002, L509.4006, L3890.6301, L100.0100 ####[facility] [address] [place], [address] Hematocrit (Bld) [Volume fraction] 35.0 % Low 37-47 [facility] Comment on above: Performed By: #### L 3890.6006, L3890.6102, BTS, L509.8002, L509.4006, L3890.6301, L100.0100 ####[facility] [address] [place], [address] Hemoglobin (Bld) [Mass/Vol] 11.7 g/dL Low 12.0-15.0 [facility] Comment on above: Performed By: #### L 3890.6006, L3890.6102, BTS, L509.8002, L509.4006, L3890.6301, L100.0100 ####[facility] [address] [place], [address] IG% 0.500 Normal 0.0-0.9 [facility] Comment on above: Result Comment: IG% - Immature Granulocytes (promyelocytes, myelocytes and metamyelocytes) > 1% indicates that a LEFT SHIFT is Present. Performed By: #### L 3890.6006, L3890.6102, BTS, L509.8002, L509.4006, L3890.6301, L100.0100 ####[facility] [address] [place], [address] Lymphocytes/100 WBC (Bld) 14.7 % Low 19-41 [facility] Comment on above: Performed By: #### L 3890.6006, L3890.6102, BTS, L509.8002, L509.4006, L3890.6301, L100.0100 ####[facility] [address] [place], [address] MCH (RBC) [Entitic mass] 28.0 pg Normal 27.0-32.0 [facility] Comment on above: Performed By: #### L 3890.6006, L3890.6102, BTS, L509.8002, L509.4006, L3890.6301, L100.0100 ####[facility] [address] [place], [address] MCHC (RBC) [Mass/Vol] 33.4 g/dL Normal 32-36 [facility] Comment on above: Performed By: #### L 3890.6006, L3890.6102, BTS, L509.8002, L509.4006, L3890.6301, L100.0100 ####[facility] [address] [place], [address] MCV (RBC) [Entitic vol] 83.7 fL Normal 81-99 [facility] Comment on above: Performed By: #### L 3890.6006, L3890.6102, BTS, L509.8002, L509.4006, L3890.6301, L100.0100 ####[facility] [address] [place], [address] Monocytes/100 WBC (Bld) 7.9 % Normal 0-10 [facility] Comment on above: Performed By: #### L 3890.6006, L3890.6102, BTS, L509.8002, L509.4006, L3890.6301, L100.0100 ####[facility] [address] [place], [address] Neutrophils/100 WBC (Bld) 74.0 % High 47-70 [facility] Comment on above: Performed By: #### L 3890.6006, L3890.6102, BTS, L509.8002, L509.4006, L3890.6301, L100.0100 ####[facility] [address] [place], [address] Nucleated RBC (Bld) [#/Vol] 0 10*3/uL Normal 0-5 [facility] Comment on above: Performed By: #### L 3890.6006, L3890.6102, BTS, L509.8002, L509.4006, L3890.6301, L100.0100 ####[facility] [address] [place], [address] Platelet mean volume (Bld) [Entitic vol] 10.7 fL Normal 6.2-12.0 [facility] Comment on above: Performed By: #### L 3890.6006, L3890.6102, BTS, L509.8002, L509.4006, L3890.6301, L100.0100 ####[facility] [address] [place], [address] Platelets (Bld) [#/Vol] 207 10*3/uL Normal 150-450 [facility] Comment on above: Performed By: #### L 3890.6006, L3890.6102, BTS, L509.8002, L509.4006, L3890.6301, L100.0100 ####[facility] [address] [place], [address] RBC (Bld) [#/Vol] 4.18 10*6/uL Low 4.2-5.4 [facility] Comment on above: Performed By: #### L 3890.6006, L3890.6102, BTS, L509.8002, L509.4006, L3890.6301, L100.0100 ####[facility] [address] [place], [address] RDW SD 44.3 fl High 35.1-43.9 [facility] Comment on above: Performed By: #### L 3890.6006, L3890.6102, BTS, L509.8002, L509.4006, L3890.6301, L100.0100 ####[facility] [address] [place], [address] WBC (Bld) [#/Vol] 7.8 10*3/uL Normal 4.4-11.0 [facility] Comment on above: Performed By: #### L 3890.6006, L3890.6102, BTS, L509.8002, L509.4006, L3890.6301, L100.0100 ####[facility] [address] [place], [address] Eosinophil percentageOrdered By: Mariajose Ayala on 02-24-2025 Eosinophils/100 WBC (Bld) 2.4 % 0-5 [facility] Erythrocyte distribution wid th ratioOrdered By: Mariajose Ayala on 02-24-2025 Erythrocyte distribution width (RBC) [Ratio] 14.5 % 11.6-14.6 [facility] Erythrocyte distribution wid th standard deviationOrdered By: Mariajose Ayala on 02-24-2025 Erythrocyte distribution width (RBC) [Ratio] 44.3 fl High 35.1-43.9 [facility] HIVon 02-24-2025 HIV Non-Reactive Normal Nonreactive [facility] Comment on above: Result Comment: Non- Reactive Reactive Repeatedly reactive samples must be confirmed according to CDC recommended confirmatory algorithms. The subresults for either HIVAG or AHIV can be used as an aid in the selection of the confirmation algorithm for reactive samples. Send out specimens with Reactive results to [facility] for confirmation. Order the HIV antibody detection and differentiation: lc#[id number] Performed By: #### L 3890.6006, L3890.6102, BTS, L509.8002, L509.4006, L3890.6301, L100.0100 ####[facility] [address] [place], [address] Hematocrit Auto (Bld) [Volum e fraction]Ordered By: Mariajose Ayala on 02-24-2025 Hematocrit (Bld) [Volume fraction] 35.0 % Low 37-47 [facility] Hemoglobin measurementOrdere d By: Mariajose Ayala on 02-24-2025 Hemoglobin (Bld) [Mass/Vol] 11.7 g/dL Low 12.0-15.0 [facility] Hepatitis C Antibodyon 02-24 Hepatitis C Ab Non-Reactive Normal Nonreactive [facility] Comment on above: Result Comment: Reac tive: Presumptive evidence of antibodies to HCV. Follow CDC recommendations for supplemental testing. Non-Reactive: Antibodies to HCV were not detected; does not exclude the possibility of exposure to HCV Reactive Results are presumptive evidence of antibodies to HCV. Follow CDC recommendations for supplemental testing. Order confirmation testing: HCV Quant by PCR testing - HCVPCR #[id number] Non Reactive: < 0.8 Equivocal: >/= 0.8 to < 1.0 Reactive: >/= 1.0 The CDC requires that a reactive/equivocal HCV antibody result be sent out for confirmation. HCV Quant by PCR testing. Performed By: #### L 3890.6006, L3890.6102, BTS, L509.8002, L509.4006, L3890.6301, L100.0100 ####[facility] [address] [facility] [place], [address] Immature granulocytes/100 WB C Auto (Bld)Ordered By: Mariajose Ayala on 02-24-2025 Immature granulocytes/100 WBC (Bld) 0.500 % 0.0-0.9 [facility] Comment on above: IG% - Immature Granu locytes (promyelocytes, myelocytes and metamyelocytes) > 1% indicates that a LEFT SHIFT is Present. L3890.6102on 02-24-2025 HEP B Surf Ag Non-Reactive Normal Nonreactive [facility] Comment on above: Result Comment: Reac tive: Presumptive evidence of HBV. Repeatedly reactive samples must be confirmed using a neutralization test ([employer]ys HBsAg Confirmatory Test) Non-Reactive: HBsAg not detected; does not exclude the possibility of exposure to HBV Performed By: #### L 3890.6006, L3890.6102, BTS, L509.8002, L509.4006, L3890.6301, L100.0100 ####[facility] [address] [facility] [place], [address] L509.4006on 02-24-2025 Rubella IgG REAC Normal Nonreactive [facility] Comment on above: Result Comment: Anti body Result: Interpretation Non-Reactive: Non-Immune Reactive: Immune The following results were obtained with the [employer]ys Rubella IgG assay. Results from assays of other manufacturers cannot be used interchangeably. Performed By: #### L 3890.6006, L3890.6102, BTS, L509.8002, L509.4006, L3890.6301, L100.0100 ####[facility] [address] [facility]. [place], [place], [id number] Laboratory - Chemistry and C hemistry - challengeOrdered By: Colleen Dillard on 02-24-2025 Glucose Ql (U) Negative [facility] Laboratory - Microbiology an d Antimicrobial susceptibilityOrdered By: Mariajose Ayala on 02-24-2025 HBV surface Ag Ql (S) Non-Reactive Nonreactive [facility] Comment on above: Reactive: Presumptiv e evidence of HBV. Repeatedly reactive samples must be confirmed using a neutralization test ([employer]ys HBsAg Confirmatory Test)Non-Reactive: HBsAg not detected; does not exclude the possibility of exposure to HBV Laboratory - UrinalysisOrder ed By: Colleen Dillard on 02-24-2025 Protein Ql (U) Negative [facility] MCV (mean corpuscular volume ) determinationOrdered By: Mariajose Ayala on 02-24-2025 MCV (RBC) [Entitic vol] 83.7 fL 81-99 [facility] Mean corpuscular hemoglobin (MCH) determinationOrdered By: Mariajose Ayaal on 02-24-2025 MCH (RBC) [Entitic mass] 28.0 pg 27.0-32.0 [facility] Mean corpuscular hemoglobin concentration (MCHC) determinationOrdered By: Mariajose Ayala on 02-24-2025 MCHC (RBC) [Mass/Vol] 33.4 g/dL 32-36 [facility] Mean platelet volume determi nationOrdered By: Mariajose Ayala on 02-24-2025 Platelet mean volume (Bld) [Entitic vol] 10.7 fL 6.2-12.0 [facility] Monocyte percentageOrdered B y: Mariajose Ayala on 02-24-2025 Monocytes/100 WBC (Bld) 7.9 % 0-10 [facility] NATERAon 02-24-2025 NATURA SEE SCANNED REPORT Normal [facility] Comment on above: Performed By: #### L 900.0098 #### [facility] [address] [place] [address]. [place], [address] Neutrophil percentageOrdered By: Mariajose Ayala on 02-24-2025 Neutrophils/100 WBC (Bld) 74.0 % High 47-70 [facility] No Panel InformationOrdered By: Mariajose Ayala on 02-24-2025 HIV (1&2) Antibody Non-Reactive Nonreactive [facility] Comment on above: Non-ReactiveReactive Repeatedly reactive samples must be confirmed according to CDC recommended confirmatory algorithms. The subresults for either HIVAG or AHIV can be used as an aid in the selection of the confirmation algorithm for reactive samples.Send out specimens with Reactive results to [facility] for confirmation.Order the HIV antibody detection and differentiation: #[id number] Nucleated red blood cell per centageOrdered By: Mariajose Ayala on 02-24-2025 Nucleated RBC/100 WBC (Bld) [Ratio] 0 % 0-5 [facility] Soccer Referee Office Visit Reporton 02-24-2025 Soccer Referee Office Visit Report [facility]'s [address], [address] [place] [address] OFFICE VISIT Date of Service: 02/24/25 MR#: [id number] Acct: [id number] Name: DEBI VERDUZCO Rep #: [id number] : 2000 Provider: Dr. Colleen Brannon DO Age/Sex: 24/F Location: [facility] Status: Signed Intake Vital Signs 01/05/25 08:45 02/19/25 14:36 02/24/25 13:57 Height 5 ft 5 in 5 ft 5 in 5 ft 5 in Weight: 137 lb BMI 22.8 BP 97/62 Intake Visit Reasons: 13wk ob [address] Freight Required: No Is patient in pain?: No [...] children number of children: 1 current occupation: [employer] current occupational exposures/hazards: No pets and animals: [...] physical activity do you participate in: none dania/spiritism: None seatbelt use: never do you feel safe at home: Yes additional social history: Boyfriend: Johny - Works at [employer] History 4 Elective abortions Hx Para 1 Spontaneous abortions 2 Hx # Term Pregnancies 1 Ectopic pregnancies Hx # Pregnancies Multiple births # of living children 1 Past Pregnancies Del. Date Name GA/Weeks Outcome Route Bth Weight Infant Gen Labor Lgth Anesthesia Del Locatn Provider FOB 11/23/19 Nathalie 39 live - full term 6lbs 12oz Female epidural [facility] Johny 09/30/21 8 spontaneous 07/08/24 8 spontaneous [...] dates. accepts NIPT. [facility] [place] [facility] [employer]-no complications. KW- CRL cons with dates. accepts N IPT. had last baby [facility] [employer]-no complications. having significan (more content not included)... Normal [facility] Platelet countOrdered By: Ned Ayala on 02-24-2025 Platelets (Bld) [#/Vol] 207 10*3/uL 150-450 [facility] RBC Auto (Bld) [#/Vol]Ordere d By: Mariajose Ayala on 02-24-2025 RBC (Bld) [#/Vol] 4.18 10*6/uL Low 4.2-5.4 [facility] Syphilis Antibodieson 2024 Syphilis Abs Non-Reactive Normal Nonreactive [facility] Comment on above: Performed By: #### L 3890.6006, L3890.6102, BTS, L509.8002, L509.4006, L3890.6301, L100.0100 ####[facility] [address] [place], [place], [id number] Type AND Screenon 02-24-2025 Ab SCREEN GEL Negative Normal [facility] Comment on above: Order Comment: PN Performed By: #### L 3890.6006, L3890.6102, BTS, L509.8002, L509.4006, L3890.6301, L100.0100 ####[facility] [address] [place], [place], [address] White blood cell (WBC) count Ordered By: Mariajose Ayala on 02-24-2025 WBC (Bld) [#/Vol] 7.8 10*3/uL 4.4-11.0 [facility] Laboratory - Chemistry and C hemistry - challengeOrdered By: Colleen Dillard on 02-19-2025 Glucose Ql (U) Negative [facility] Laboratory - UrinalysisOrder ed By: Colleen Dilladr on 02-19-2025 Protein Ql (U) Negative [facility] Soccer Referee Office Visit Reporton 02-19-2025 Soccer Referee Office Visit Report [address], [address] [place] [address] OFFICE VISIT Date of Service: 02/19/25 MR#: [id number] Acct: [id number] Name: DAXDEBI DSOUZAN Rep #: [id number] : 2000 Provider: Dr. Colleen Brannon, DO Age/Sex: 24/F Location: [facility] Status: Signed Intake Vital Signs 02/01/25 13:03 02/19/25 14:34 02/19/25 14:36 Height 5 ft 5 in 5 ft 5 in 5 ft 5 in Weight: 137 lb 2 oz BMI 22.8 BP 120/80 Intake Visit Reasons: vaginal discharge/leaking 12wk OB [address] Freight Required: No Is patient in pain?: No [...] children number of children: 1 current occupation: [employer] current occupational exposures/hazards: No pets and animals: [...] physical activity do you participate in: none dania/spiritism: None seatbelt use: never do you feel safe at home: Yes additional social history: Boyfriend: Johny - Works at [employer] History 4 Elective abortions Hx Para 1 Spontaneous abortions 2 Hx # Term Pregnancies 1 Ectopic pregnancies Hx # Pregnancies Multiple births # of living children 1 Past Pregnancies Del. Date Name GA/Weeks Outcome Route Bth Weight Gen Labor Lgth Anesthesia Del Locatn Provider FOB 11/23/19 Nathalie 39 live - full term 6lbs 12oz [facility] Johny 09/30/21 8 spontaneous 07/08/24 8 spontaneous [...] dates. accepts NIPT. [facility] [place] [facility] [place] [employer]no complications. KW- CRL cons with dates. accepts N IPT. had last baby [place] [employer]-no complications. having significant nausea and vomiting. standing order for IV infusions 02/19/25 -???-???-???-???-???-??? -???-???-???-???-? (more content not included)... Normal [facility] PAP I-G w/rfx hrHPV-Aptimaon 02-04-2025 ADEQ Comment Normal . [facility] Comment on above: Order Comment: Mary taylor Comment: [id number] Comment: No. of containers..01 ThinPrep Vial Result Comment: Sati sfactory for evaluation. No endocervical component is identified. Performed By: #### L 7400.0353, M100.2200, L7000.1800 ####[facility] [address] [place], [place], [address] COMM . Normal . [facility] Comment on above: Order Comment: Speci men Comment: [id number] Comment: No. of containers..01 ThinPrep Vial Performed By: #### L 7400.0353, M100.2200, L7000.1800 ####[facility] [address] [place], [address] COMMENT Comment Normal . [facility] Comment on above: Order Comment: Speci men Comment: [id number] Comment: No. of containers..01 ThinPrep Vial Result Comment: This liquid based ThinPrep(R) pap test was screened with the use of an image guided system. Performed By: #### L 7400.0353, M100.2200, L7000.1800 ####[facility] [address] [place], [address] DIAG Comment Normal . [facility] Comment on above: Order Comment: Speci men Comment: [id number] Comment: No. of containers..01 ThinPrep Vial Result Comment: NEGA TIVE FOR INTRAEPITHELIAL LESION OR MALIGNANCY. Performed By: #### L 7400.0353, M100.2200, L7000.1800 ####[facility] [address] [place], [place], [address] HPV RFLX Comment Normal . [facility] Comment on above: Order Comment: Speci men Comment: [id number] Comment: No. of containers..01 ThinPrep Vial Result Comment: The HPV DNA reflex criteria were not met with this specimen result therefore, no HPV testing was performed. Performed at: [address] [id number] Ssn/Ssbn Assistant Navigator: Liv Meier MD, Phone: [phone] Performed By: #### L 7400.0353, M100.2200, L7000.1800 ####[facility] [address] [place], [address] PAPSMR Comment Normal . [facility] Comment on above: Order Comment: Speci men Comment: [id number] Comment: No. of containers..01 ThinPrep Vial Result Comment: The Pap smear is a screening test designed to aid in the detection of premalignant and malignant conditions of the uterine cervix. It is not a diagnostic procedure and should not be used as the sole means of detecting cervical cancer. Both false-positive and false-negative reports do occur. Performed By: #### L 7400.0353, M100.2200, L7000.1800 ####[facility] [address] [place], [address] PERFORM Comment Normal . [facility] Comment on above: Order Comment: Speci men Comment: [id number] Comment: No. of containers..01 ThinPrep Vial Result Comment: Katalina Colon, Store Loss Prevention Manager (ASCP) Performed By: #### L 7400.0353, M100.2200, L7000.1800 ####[facility] [address] [place], [address] Chlamydia/GC YOEL aptimaon CHLAMY,NUC ACID Negative Normal Negative [facility] Comment on above: Performed By: #### L 7400.0353, M100.2200, L7000.1800 ####[facility] [address] [place], [address] GC BY NUC ACID Negative Normal Negative [facility] Comment on above: Result Comment: Perf ormed at: =G - [facility] [address] [id number] Ssn/Ssbn Assistant Navigator: Liv Meier MD, Phone: [phone] Performed By: #### L 7400.0353, M100.2200, L7000.1800 ####[facility] [address] [place], [address] Urine Cultureon 02-02-2025 [facility]RC Culture exhibits no growth. Normal [facility] Comment on above: Performed By: #### L 7400.0353, M100.2200, L7000.1800 ####[facility] [address] [place], [address] Cervical or vagninal specime n microscopic examination by cytology stain (reported asOrdered By: Mariajose Ayala on 02-01-2025 Cytology report Cyto stain Doc (Cvx/Vag) Comment . [facility] Comment on above: The Pap smear [...] rRNA YOEL+probe Ql (Unsp spec) Negative Negative [facility] Laboratory - CytologyOrdered By: Mariajose Ayala on 02-01-2025 Store Loss Prevention Manager Cyto stain Nom (Cvx/Vag) [ID] Comment . [facility] Comment on above: Vince Chan ytologist (ASCP) Laboratory - Miscellaneous t estsOrdered By: Mariajose Ayala on 02-01-2025 Service comment (Unsp spec) [Interp] . . [facility] Neisseria gonorrhoeae nuclei c acid detection by amplified probe techniqueOrdered By: Mariajose Ayala on 02-01-2025 N. gonorrhoeae DNA YOEL+probe Ql (Unsp spec) Negative Negative [facility] Comment on above: Performed at: =[address] [id number] Director: Liv Meier MD, Phone: [phone] No Panel InformationOrdered By: Mariajose Ayala on 02-01-2025 Pap Smear Specimen Adequacy Comment . [facility] Comment on above: Satisfactory for prerna luation. No endocervical component is identified. Soccer Referee Office Visit Reporton 02-01-2025 Soccer Referee Office Visit Report [facility]'s [address], [address] [place] [address] OFFICE VISIT Date of Service: 02/01/25 MR#: [id number] Acct: [id number] Name: DEBI VERDUZCO Rep #: [id number] : 2000 Provider: BOB Veloz ams Age/Sex: 24/F Location: [facility] Status: Signed Intake Vital Signs 01/05/25 08:45 02/01/25 13:03 Height 5 ft 5 in 5 ft 5 in Weight: 137 lb 2 oz 138 lb BMI 22.8 22.9 BP 103/71 109/71 Intake Visit Reasons: NOB: LMP 11/26, MYRON 09/02 Chief Complaint: New OB [address]ke [address] Freight Required: No Is patient in pain?: No [...] children number of children: 1 current occupation: [employer] current occupational exposures/hazards: No pets and animals: [...] physical activity do you participate in: none dania/spiritism: None seatbelt use: never do you feel safe at home: Yes additional social history: Boyfriend: Johny - Works at [employer] History 4 Elective abortions Hx Para 1 Spontaneous abortions 2 Hx # Term Pregnancies 1 Ectopic pregnancies Hx # Pregnancies Multiple births # of living children 1 Past Pregnancies Del. Date Name GA/Weeks Outcome Route Bth Weight Infant Gen Labor Lgth Anesthesia Del Locatn Provider FOB 11/23/19 Isabela 39 live - full term 6lbs 12oz Female epidural [facility] Johny 09/30/21 8 spontaneous 07/08/24 8 spontaneous [...] dates. accepts NIPT. [facility] [employer]no complications. KW- CRL cons with dates. accepts N IPT. had last baby [facility] [employer]-no complications. having significant nausea and vomiting. standing order for IV infusions Menstrual History Last Menstrual Period: (more content not included)... Normal [facility] Urine cultureOrdered By: Bert Ayala on 02-01-2025 Bacteria identified Cx Nom (U) Culture exhibits no growth. [facility] Bacteria identifiedon 2024 Bacteria identified Cx Nom (U) Test: Urine Culture Specimen Source: Clean Catch/Voided Specimen Type: Urine Specimen Date: 01/31/20252013 Result Date: 02/02/2025 0840 Result Status: Final result Abnormal: No Resulting Lab: [facility] [address] [address] CULTURE Clinically insignificant growth based on current clinical standards. Normal [facility] Comment on above: Performed By: #### 6 30-4 ####KASANDRA Cadena ([id number])[facility] ([facility])[id number] [place] [address] CBC panel Auto (Bld)on 01-31 Erythrocyte distribution width (RBC) [Ratio] 14.9 % High 11.5 - 14.5 % [facility] Hematocrit (Bld) [Volume fraction] 36.9 % 36.0 - 46.0 % [facility] Hemoglobin (Bld) [Mass/Vol] 12.1 g/dL 12.0 - 16.0 g/dL [facility] Interpretation and review of laboratory results Abnormal [facility] MCH (RBC) [Entitic mass] 27.4 pg 26.0 - 34.0 pg [facility] MCHC (RBC) [Mass/Vol] 32.8 g/dL 32.0 - 36.0 g/dL [facility] MCV (RBC) [Entitic vol] 84 fL 80 - 100 fL [facility] Nucleated RBC/100 WBC (Bld) [Ratio] 0 % [facility] Platelets (Bld) [#/Vol] 242 10*3/uL [facility] RBC (Bld) [#/Vol] 4.41 10*6/uL [facility] WBC (Bld) [#/Vol] 7.2 10*3/uL [facility] Erythrocyte distribution width (RBC) [Ratio] 14.9 % High 11.5-14.[address] [facility] Comment on above: Performed By: #### 5 8410-2 #### RENUKA LOPEZ ([id number]) [facility] ([facility]) [address] [place] [address] Hematocrit (Bld) [Volume fraction] 36.9 % Normal 36.0-46.[address] [facility] Comment on above: Performed By: #### 5 8410-2 #### RENUKA LOPEZ ([id number]) [facility] ([facility]) [address] [place] [address] Hemoglobin (Bld) [Mass/Vol] 12.1 g/dL Normal 12.0-16.[address] [facility] Comment on above: Performed By: #### 5 8410-2 #### RENUKA LOPEZ ([id number]) [facility] ([facility]) [address] [place] [address] MCH (RBC) [Entitic mass] 27.4 pg Normal 26.0-34.[address] [facility] Comment on above: Performed By: #### 5 8410-2 #### RENUKA LOPEZ ([id number]) [facility] ([facility]) [address] [place] [address] MCHC (RBC) [Mass/Vol] 32.8 g/dL Normal 32.0-36.0 [facility] Comment on above: Performed By: #### 5 8410-2 #### RENUKA LOPEZ ([id number]) [facility] ([facility]) [address] [place] [address] MCV (RBC) [Entitic vol] 84 fL Normal 80-[address] [facility] Comment on above: Performed By: #### 5 8410-2 #### RENUKA LOPEZ ([id number]) [facility] ([facility]) [address] [place] [address] Nucleated RBC/100 WBC (Bld) [Ratio] 0.0 /100 WBCs Normal 0.0-0.[address] [facility] Comment on above: Performed By: #### 5 8410-2 #### RENUKA LOPEZ ([id number]) [facility] ([facility]) [address] [place] [address] Platelets (Bld) [#/Vol] 242 x10*3/uL Normal 150-[address] [facility] Comment on above: Performed By: #### 5 8410-2 #### RENUKA LOPEZ ([id number]) [facility] ([facility]) [address] [place] [address] RBC (Bld) [#/Vol] 4.41 x10*6/uL Normal 4.00-5.20 [facility] Comment on above: Performed By: #### 5 8410-2 #### RENUKA LOPEZ ([id number]) [facility] ([facility]) [address] [place] [address] WBC (Bld) [#/Vol] 7.2 x10*3/uL Normal 4.4-11.3 [facility] Comment on above: Performed By: #### 5 8410-2 #### RENUKA LOPEZ ([id number]) [facility] ([facility]) [address] [place] [address] Comprehensive metabolic 2000 panelon 01-31-2025 Albumin BCP dye [Mass/Vol] 4.1 g/dL 3.4 - 5.0 g/dL [facility] ALP [Catalytic activity/Vol] 69 U/L 33 - 110 U/L [facility] ALT With P-5'-P [Catalytic activity/Vol] 8 U/L 7 - 45 U/L [facility] Comment on above: Patients treated wit h Sulfasalazine may generate falsely decreased results for ALT. Anion gap [Moles/Vol] 14 mmol/L 10 - 2 0 mmol/L [facility] AST With P-5'-P [Catalytic activity/Vol] 11 U/L 9 - 39 U/L [facility] Bilirubin [Mass/Vol] 0.3 mg/dL 0.0 - 1 .2 mg/dL [facility] Calcium [Mass/Vol] 9.4 mg/dL 8.6 - 10. 3 mg/dL [facility] Chloride [Moles/Vol] 104 mmol/L 98 - 10 7 mmol/L [facility] CO2 [Moles/Vol] 23 mmol/L 21 - 32 mmol/L [facility] Creatinine [Mass/Vol] 0.47 mg/dL Low 0.50 - 1.05 mg/dL [facility] eGFR - PINF [facility] Comment on above: Calculations of nilson mated GFR are performed using the 2020 CKD-EPI Study Refit equation without the race variable for the IDMS-Traceable creatinine methods. https://jasn.asnjournals.org/content/early//ASN.42460 75118 Glucose [Mass/Vol] 80 mg/dL 74 - 99 mg/dL [facility] Interpretation and review of laboratory results Abnormal [facility] Potassium [Moles/Vol] 3.6 mmol/L 3.5 - 5.3 mmol/L [facility] Protein [Mass/Vol] 7.1 g/dL 6.4 - 8.2 g/dL [facility] Sodium [Moles/Vol] 137 mmol/L 136 - 145 mmol/L [facility] Urea nitrogen [Mass/Vol] 6 mg/dL 6 - 23 mg/dL [facility] Albumin BCP dye [Mass/Vol] 4.1 g/dL Normal 3.4-5.[address] [facility] Comment on above: Performed By: #### 2 4323-8 #### RENUKA LOPEZ ([id number]) [facility] ([facility]) [facility] [place] [address] ALP [Catalytic activity/Vol] 69 U/L Normal 33-[address] [facility] Comment on above: Performed By: #### 2 4323-8 #### RENUKA LOPEZ ([id number]) [facility] ([facility]) [address] [place] [address] 36761 ALT With P-5'-P [Catalytic activity/Vol] 8 U/L Normal 7-[address] [facility] Comment on above: Result Comment: Lynsey ents treated with Sulfasalazine may generate falsely decreased results for ALT. Performed By: #### 2 4323-8 #### RENUKA LOPEZ ([id number]) [facility] ([facility]) [address] [place] [address] Anion gap [Moles/Vol] 14 mmol/L Normal 10-20 [facility] Comment on above: Performed By: #### 2 4323-8 #### RENUKA LOPEZ ([id number]) [facility] ([facility]) [facility] [place] [address] AST With P-5'-P [Catalytic activity/Vol] 11 U/L Normal 9-[address] [facility] Comment on above: Performed By: #### 2 4323-8 #### RENUKA LOPEZ ([id number]) [facility] ([facility]) [address] [place] [address] Bilirubin [Mass/Vol] 0.3 mg/dL Normal 0.0-1.2 [facility] Comment on above: Performed By: #### 2 4323-8 #### RENUKA LOPEZ ([id number]) [facility] ([facility]) [address] [place] [address] Calcium [Mass/Vol] 9.4 mg/dL Normal 8.6-10.3 [facility] Comment on above: Performed By: #### 2 4323-8 #### RENUKA LOPEZ ([id number]) [facility] ([facility]) [address] [place] [address] Chloride [Moles/Vol] 104 mmol/L Normal 98-107 [facility] Comment on above: Performed By: #### 2 4323-8 #### RENUKA LOPEZ ([id number]) [facility] ([facility]) [address] [place] [address] CO2 [Moles/Vol] 23 mmol/L Normal 21-32 [facility] Comment on above: Performed By: #### 2 4323-8 #### RENUKA LOPEZ ([id number]) [facility] ([facility]) [address] [place] [address] Creatinine [Mass/Vol] 0.47 mg/dL Low 0.50-1.05 [facility] Comment on above: Performed By: #### 2 4323-8 #### RENUKA LOPEZ ([id number]) [facility] ([facility]) [address] [place] [address] GFR/1.73 sq M.predicted MDRD (S/P/Bld) [Vol rate/Area] mL/min/{1.73_m2} Normal >[address] [facility] Comment on above: Result Comment: Calc ulations of estimated GFR are performed using the 2020 CKD-EPI Study Refit equation without the race variable for the IDMS-Traceable creatinine methods. https://jasn.asnjournals.org/content//ASN.90687 20438 Performed By: #### 2 4323-8 #### RENUKA LOPEZ ([id number]) [facility] ([facility]) [address] [place] [address]4680 Glucose [Mass/Vol] 80 mg/dL Normal 74-99 [facility] Comment on above: Performed By: #### 2 4323-8 #### RENUKA LOPEZ ([id number]) [facility] ([facility]) [address] [place] [address] 80365 Potassium [Moles/Vol] 3.6 mmol/L Normal 3.5-5.3 [facility] Comment on above: Performed By: #### 2 4323-8 #### RENUKA LOPEZ ([id number]) [facility] ([facility]) [address] [place] [address] 95461 Protein [Mass/Vol] 7.1 g/dL Normal 6.4-8.2 [facility] Comment on above: Performed By: #### 2 4323-8 #### RENUKA LOPEZ ([id number]) [facility] ([facility]) [address] [place] [address] 88746 Sodium [Moles/Vol] 137 mmol/L Normal 136-145 [facility] Comment on above: Performed By: #### 2 4323-8 #### RENUKA LOPEZ ([id number]) [facility] ([facility]) [address] [place] [address] 39427 Urea nitrogen [Mass/Vol] 6 mg/dL Normal 6-[address] [facility] Comment on above: Performed By: #### 2 4323-8 #### RENUKA LOPEZ ([id number]) [facility] ([facility]) [address] [place] [address] 37004 No Panel Informationon 01-31 Interpretation and review of laboratory results Abnormal [facility] Urinalysis complete W Reflex Culture panel (U)on 01-31-2025 Appearance (U) Turbid Abnormal Clear [facility] Bilirubin (U) [Mass/Vol] Negative NEGATIVE mg/dL [facility] Color (U) Light-Yellow Light-Yellow , Yellow, Dark-Yellow [facility] Glucose Auto test strip (U) [Mass/Vol] Normal Normal mg/dL [facility] Ketones (U) [Mass/Vol] 40 (2+) Abnormal NEGAT BERNADETTE mg/dL [facility] Leukocyte esterase Auto test strip Ql (U) 500 Ubaldo/uL Abnormal NEGATIVE [facility] Nitrite Auto test strip Ql (U) Negative NEGATIVE [facility] pH (U) 6.5 [pH] 5.0, 5.5, 6.0, 6.5, 7.0, 7.5, 8.0 [facility] Protein (U) [Mass/Vol] Negative NEGAT BERNADETTE, 10 (TRACE), 20 (TRACE) mg/dL [facility] RBC (U) [#/Vol] Negative NEGATIVE mg/dL [facility] Specific gravity (U) [Rel density] 1.019 1.005 - 1.035 [facility] Urobilinogen (U) [Mass/Vol] Normal Normal mg/dL [facility] Appearance (U) Turbid Normal Clear [facility] Comment on above: Performed By: #### 5 8077-9 #### RENUKA LOPEZ ([id number]) [facility] ([facility]) [address] [place] [address] Bilirubin (U) [Mass/Vol] Negative Normal NEGATIVE [facility] Comment on above: Performed By: #### 5 8077-9 #### RENUKA LOPEZ ([id number]) [facility] ([facility]) [address] [place] [address] 17597 Color (U) Light-Yellow Normal Light-Yellow , Yellow, Dark-Yellow [facility] Comment on above: Performed By: #### 5 8077-9 #### RENUKA LOPEZ ([id number]) [facility] ([facility]) [address] [place], [place] [address] Glucose Auto test strip (U) [Mass/Vol] Normal Normal Normal [facility] Comment on above: Performed By: #### 5 8077-9 #### RENUKA LOPEZ ([id number]) [facility] ([facility]) [address] [place] [address] Ketones (U) [Mass/Vol] 40 (2+) Abnormal NEGATIVE [facility] on above: Performed By: #### 5 8077-9 #### RENUKA LOPEZ ([id number]) [facility] ([facility]) [address] [place] [address] Leukocyte esterase Auto test strip Ql (U) 500 Ubaldo/uL Abnormal NEGATIVE [facility] Comment on above: Performed By: #### 5 8077-9 #### RENUKA LOPEZ ([id number]) [facility] ([facility]) [address] [place] [address] Nitrite Auto test strip Ql (U) Negative Normal NEGATIVE [facility] Comment on above: Performed By: #### 5 8077-9 #### RENUKA LOPEZ ([id number]) [facility] ([facility]) [address] [place] [address] 46157 pH (U) 6.5 [pH] Normal 5.0, 5.5, 6.0, 6.5, 7.0, 7.5, 8.[address] [facility] Comment on above: Performed By: #### 5 8077-9 #### RENUKA LOPEZ ([id number]) [facility] ([facility]) [address] [place] [address]3437 Protein (U) [Mass/Vol] Negative Normal NEGAT BERNADETTE, 10 (TRACE), 20 (TRACE) [facility] Comment on above: Performed By: #### 5 8077-9 #### RENUKA LOPEZ ([id number]) [facility] ([facility]) [address] [place] [address] 91884 RBC (U) [#/Vol] Negative Normal NEGATIVE [facility] Comment on above: Performed By: #### 5 8077-9 #### RENUKA LOPEZ ([id number]) [facility] ([facility]) [address] [place] [address] Specific gravity (U) [Rel density] 1.019 Normal 1.005-1.[address] [facility] Comment on above: Performed By: #### 5 8077-9 #### RENUKA LOPEZ ([id number]) [facility] ([facility]) [address] [place] [address] Urobilinogen (U) [Mass/Vol] Normal Normal Normal [facility] Comment on above: Performed By: #### 5 8077-9 #### RENUKA LOPEZ ([id number]) [facility] ([facility]) [address] [place] [address] Urinalysis microscopic panel Auto Ql (U)on 01-31-2025 Bacteria Auto (Urine sed) [#/Area] 1+ Abnormal NONE SEEN /HPF [facility] Epithelial cells.squamous Auto (Urine sed) [#/Area] 1-9 (SPARSE) Reference range not established. /HPF [facility] Mucus Auto (Urine sed) [#/Area] FEW Reference range not established. /LPF [facility] RBC Auto (Urine sed) [#/Area] 3-5 NONE, 1-2, 3-5 /HPF [facility] WBC Auto (Urine sed) [#/Area] 6-10 Abnormal 1-5, NONE /HPF [facility] Bacteria Auto (Urine sed) [#/Area] 1+ /HPF Abnormal NONE SEEN [facility] Comment on above: Performed By: #### 5 3315-8 #### RENUKA LOPEZ ([id number]) [facility] ([facility]) [address] [place] [address] Epithelial cells.squamous Auto (Urine sed) [#/Area] 1-9 (SPARSE) Normal Reference range not established. [facility] Comment on above: Performed By: #### 5 3315-8 #### RENUKA LOPEZ (65908) [facility] ([facility]) [address] [place] [address] Mucus Auto (Urine sed) [#/Area] FEW Normal Reference range not established. [facility] Comment on above: Performed By: #### 5 3315-8 #### RENUKA LOPEZ ([id number]) [facility] ([facility]) [facility] [place] [address] RBC Auto (Urine sed) [#/Area] 3-5 Normal NONE, 1-2, 3-[address] [facility] Comment on above: Performed By: #### 5 3315-8 #### RENUKA LOPEZ ([id number]) [facility] ([facility]) [facility] [place] [address] WBC Auto (Urine sed) [#/Area] 6-10 Abnormal 1-5, NONE [facility] Comment on above: Performed By: #### 5 3315-8 #### RENUKA LOPEZ ([id number]) [facility] ([facility]) [address] [place] [address] 32667 Serum human chorionic gonado tropin detection for pregnancyOrdered By: Mariajose Ayala on 01-28-2025 HCG ( test) Ql 537954 mIU/mL High <9 [facility] Comment on above: Gestational Age0.2-1 Week: 5-50 mIU/mL1-2 Weeks: 50-500 mIU/mL2-3 Weeks: 100-5000 mIU/mL3-4 Weeks: 500-10,000 mIU/mL4-5 Weeks:1000-50,000 mIU/mL5-6 Weeks: 10,000-100,000 mIU/mL6-8 Weeks: 15,000-200,000 mIU/mL2-3 Months:10,000-100,000 mIU/mL Transvaginal w/Preg USon Transvaginal w/Preg US [facility] [address] [place] [address] Transvaginal w/Preg US MR#: [id number] Acct: [id number] Name: DEBI VERDUZCO Rep #: [id number] : 2000 F 24 From: Camron Scott MD PCP: CONCEPCION Caballero Status: REG CLI Study: Transvaginal w/Preg US Date of Exam: 01/28/25 Exam# [id number] Ordering Dr: Mariajose Ayala CNM PROCEDURE: TRANSVAGINAL [...] and 0 days, MYRON 09/02/2025. Reading Location: [id number] CC: BOB Ayala; CONCEPCION Cary Saxophone Teacher: Signed Normal [facility] hCG Titer Quant., Serumon HCG QUANT. 308604 mIU/mL High <9 non-preg [facility] Comment on above: Result Comment: Gest ational Age 0.2-1 Week: 5-50 mIU/mL 1-2 Weeks: 50-500 mIU/mL 2-3 Weeks: 100-5000 mIU/mL 3-4 Weeks: 500-10,000 mIU/mL 4-5 Weeks:1000-50,000 mIU/mL 5-6 Weeks: 10,000-100,000 mIU/mL 6-8 Weeks: 15,000-200,000 mIU/mL 2-3 Months:10,000-100,000 mIU/mL Performed By: #### L 700.8000 #### [facility] [place], [address] CHLAMYDIA/N. GONORRHOEAE RNA , TMA, UROGENITALon 01-15-2025 CHLAMYDIA TRACHOMATIS RNA, TMA, UROGENITAL Not detected Normal NOT DETECTED [facility] Comment on above: Performed By: #### 3 95, 72539 #### [facility] [place] [address] [address] Commissioner: Kamlesh Ash MD COMMENT Normal [facility] Comment on above: Result Comment: The analytical performance characteristics of this assay, when used to test SurePath(TM) specimens have been determined by [employer]. The modifications have not been cleared or approved by the FDA. This assay has been validated pursuant to the CLIA regulations and is used for clinical purposes. For additional information, please refer to https://education.Uskape/faq/CSP846 (This link is being provided for information/ educational purposes only.) Performed By: #### 3 95, 08928 #### [facility] [place] [address] [address] Commissioner: Kamlesh Ash MD NEISSERIA GONORRHOEAE RNA, TMA, UROGENITAL Not detected Normal NOT DETECTED [facility] Comment on above: Performed By: #### 3 95, 20397 #### [facility] [place] [address] [address] Commissioner: Kamlesh Ash MD CULTURE, URINE, ROUTINEon Bacteria identified Cx Nom (U) SEE NOTE Normal [facility] Comment on above: Result Comment: CULTURE, URINE, ROUTINE Micro Number: [id number] Test Status: Final Specimen Source: Urine, clean catch Specimen Quality: Adequate Result: No Growth Performed By: #### 3 95, 58178 #### [facility] [place] [address] [address] Commissioner: Kamlesh Ash MD Laboratory - Chemistry and C hemistry - challengeOrdered By: Meena Us on 01-05-2025 HCG ( test) Ql (U) Positive [facility] Office Visit Reporton 2024 Office Visit Report [facility] [address] [place] [address] OFFICE VISIT Date of Service: 01/05/25 MR#: [id number] Acct: [id number] Patient: DEBI VERDUZCO Rep #: [id number] : 2000 Provider: Dr. Meena menendez MD Age/Sex: 24/F Location: [facility] Status: Signed Intake Vital Signs 01/05/25 08:45 Height 5 ft 5 in Weight: 137 lb 2 oz BMI 22.8 BP 103/71 Intake Visit Reasons: New patient , Urine HCG and establish Chief Complaint: Urine HCG, Establish Care [employer] Freight Required: No Is patient in pain?: No [...] Signature: Date (if applicable) Aisha Vitale NP PRODUCT APPLICATIONS SCIENTIST-C CC: Normal [facility] Basic metabolic 2000 panelon 10-30-2024 Anion gap [Moles/Vol] 10 mmol/L 10 - 2 0 mmol/L [facility] Calcium [Mass/Vol] 8.7 mg/dL 8.6 - 10. 3 mg/dL [facility] Chloride [Moles/Vol] 108 mmol/L High 98 - 10 7 mmol/L [facility] CO2 [Moles/Vol] 24 mmol/L 21 - 32 mmol/L [facility] Creatinine [Mass/Vol] 0.56 mg/dL 0.50 - 1.05 mg/dL [facility] eGFR - PINF [facility] Comment on above: Calculations of nilson mated GFR are performed using the 2020 CKD-EPI Study Refit equation without the race variable for the IDMS-Traceable creatinine methods. https://jasn.asnjournals.org/content//ASN.68738 04700 Glucose [Mass/Vol] 87 mg/dL 74 - 99 mg/dL [facility] Interpretation and review of laboratory results Abnormal [facility] Potassium [Moles/Vol] 3.8 mmol/L 3.5 - 5.3 mmol/L [facility] Sodium [Moles/Vol] 138 mmol/L 136 - 145 mmol/L [facility] Urea nitrogen [Mass/Vol] 5 mg/dL Low 6 - 23 mg/dL [facility] Anion gap [Moles/Vol] 10 mmol/L Normal 10-20 [facility] Comment on above: Performed By: #### 2 4321-2 #### RENUKA LOPEZ ([id number]) [facility]) [facility] [place] [address] Calcium [Mass/Vol] 8.7 mg/dL Normal 8.6-10.3 [facility] Comment on above: Performed By: #### 2 4321-2 #### RENUKA LOPEZ ([id number]) [facility] ([facility]) [address] [place] [address] Chloride [Moles/Vol] 108 mmol/L High 98-107 [facility] Comment on above: Performed By: #### 2 4321-2 #### RENUKA LOPEZ ([id number]) [facility]) [facility] [place] [address] CO2 [Moles/Vol] 24 mmol/L Normal 21-32 [facility] Comment on above: Performed By: #### 2 4321-2 #### RENUKA LOPEZ (10343) [facility] ([facility]) [address] [place] [address] 46005 Creatinine [Mass/Vol] 0.56 mg/dL Normal 0.50-1.05 [facility] Comment on above: Performed By: #### 2 4321-2 #### RENUKA LOPEZ ([id number]) [facility] ([facility]) [address] [place] [address] 935[address] GFR/1.73 sq M.predicted MDRD (S/P/Bld) [Vol rate/Area] mL/min/{1.73_m2} Normal >[address] [facility] Comment on above: Result Comment: Calc ulations of estimated GFR are performed using the 2020 CKD-EPI Study Refit equation without the race variable for the IDMS-Traceable creatinine methods. https://jasn.asnjournals.org/content/early//ASN.68376 42320 Performed By: #### 2 4321-2 #### RENUKA LOPEZ ([id number]) [facility] ([facility]) [address] [place] [address] 19132 Glucose [Mass/Vol] 87 mg/dL Normal 74-99 [facility] Comment on above: Performed By: #### 2 4321-2 #### RENUKA LOPEZ ([id number]) [facility] ([facility]) [address] [place] [address] 01377 Potassium [Moles/Vol] 3.8 mmol/L Normal 3.5-5.3 [facility] Comment on above: Performed By: #### 2 4321-2 #### RENUKA LOPEZ ([id number]) [facility] ([facility]) [address] [place] [address] 95[address] Sodium [Moles/Vol] 138 mmol/L Normal 136-145 [facility] Comment on above: Performed By: #### 2 4321-2 #### RENUKA LOPEZ (04505) [facility] ([facility]) [address] [place] [address] Urea nitrogen [Mass/Vol] 5 mg/dL Low 6-[address] [facility] Comment on above: Performed By: #### 2 4321-2 #### RENUKA LOPEZ ([id number]) [facility]) [address] [place] [address] CBC W Auto Differential pane l (Bld)on 10-30-2024 Basophils (Bld) [#/Vol] 0.04 10*3/uL [facility] Basophils/100 WBC (Bld) 0.9 % 0.0 - 2.0 % [facility] Eosinophils (Bld) [#/Vol] 0.09 10*3/uL [facility] Eosinophils/100 WBC (Bld) 1.9 % 0.0 - 6.0 % [facility] Erythrocyte distribution width (RBC) [Ratio] 13.8 % 11.5 - 14.5 % [facility] Hematocrit (Bld) [Volume fraction] 35.1 % Low 36.0 - 46.0 % [facility] Hemoglobin (Bld) [Mass/Vol] 11.1 g/dL Low 12.0 - 16.0 g/dL [facility] Immature granulocytes (Bld) [#/Vol] 0.01 10*3/uL [facility] Immature granulocytes/100 WBC (Bld) 0.2 % 0.0 - 0.9 % [facility] Comment on above: Immature Granulocyte Count (IG) includes promyelocytes, myelocytes and metamyelocytes but does not include bands. Percent differential counts (%) should be interpreted in the context of the absolute cell counts (cells/UL). Interpretation and review of laboratory results Abnormal [facility] Lymphocytes (Bld) [#/Vol] 0.93 10*3/uL Low [facility] Lymphocytes/100 WBC (Bld) 20 % 13.0 - 44.0 % [facility] MCH (RBC) [Entitic mass] 25.6 pg Low 26.0 - 34.0 pg [facility] MCHC (RBC) [Mass/Vol] 31.6 g/dL Low 32.0 - 36.0 g/dL [facility] MCV (RBC) [Entitic vol] 81 fL 80 - 100 fL [facility] Monocytes (Bld) [#/Vol] 0.57 10*3/uL [facility] Monocytes/100 WBC (Bld) 12.2 % 2.0 - 10.0 % [facility] Neutrophils (Bld) [#/Vol] 3.02 10*3/uL [facility] Comment on above: Percent differential counts (%) should be interpreted in the context of the absolute cell counts (cells/uL). Neutrophils/100 WBC (Bld) 64.8 % 40.0 - 80.0 % [facility] Nucleated RBC/100 WBC (Bld) [Ratio] 0 % [facility] Platelets (Bld) [#/Vol] 201 10*3/uL [facility] RBC (Bld) [#/Vol] 4.33 10*6/uL [facility] WBC (Bld) [#/Vol] 4.7 10*3/uL [facility] Basophils (Bld) [#/Vol] 0.04 x10*3/uL Normal 0.00-0.[address] [facility] Comment on above: Performed By: #### 5 7021-8 #### RENUKA LOPEZ ([id number]) [facility] ([facility]) [address] [place] [address] 34246 Basophils/100 WBC (Bld) 0.9 % Normal 0.0-2.[address] [facility] Comment on above: Performed By: #### 5 7021-8 #### RENUKA LOPEZ ([id number]) [facility] ([facility]) [facility] [place] [address] Eosinophils (Bld) [#/Vol] 0.09 x10*3/uL Normal 0.00-0.[address] [facility] Comment on above: Performed By: #### 5 7021-8 #### RENUKA LOPEZ ([id number]) [facility] ([facility]) [address] [place] [address] 11546 Eosinophils/100 WBC (Bld) 1.9 % Normal 0.0-6.[address] [facility] Comment on above: Performed By: #### 5 7021-8 #### RENUKA LOPEZ ([id number]) [facility] ([facility]) [address] [place] [address] 26987 Erythrocyte distribution width (RBC) [Ratio] 13.8 % Normal 11.5-14.[address] [facility] Comment on above: Performed By: #### 5 7021-8 #### RENUKA LOPEZ ([id number]) [facility] ([facility]) [address] [place] [address] Hematocrit (Bld) [Volume fraction] 35.1 % Low 36.0-46.[address] [facility] Comment on above: Performed By: #### 5 7021-8 #### RENUKA LOPEZ ([id number]) [facility] ([facility]) [address] [place] [address] 78777 Hemoglobin (Bld) [Mass/Vol] 11.1 g/dL Low 12.0-16.[address] [facility] Comment on above: Performed By: #### 5 7021-8 #### RENUKA LOPEZ ([id number]) [facility] ([facility]) [address] [place] [address] 98245 Immature granulocytes (Bld) [#/Vol] 0.01 x10*3/uL Normal 0.00-0.[address] [facility] Comment on above: Performed By: #### 5 7021-8 #### RENUKA LOPEZ ([id number]) [facility] ([facility]) [address] [place] [address] 85343 Immature granulocytes/100 WBC (Bld) 0.2 % Normal 0.0-0.[address] [facility] Comment on above: Result Comment: Arielle ture Granulocyte Count (IG) includes promyelocytes, myelocytes and metamyelocytes but does not include bands. Percent differential counts (%) should be interpreted in the context of the absolute cell counts (cells/UL). Performed By: #### 5 7021-8 #### RENUKA LOPEZ ([id number]) [facility] ([facility]) [address] [place] [address] Lymphocytes (Bld) [#/Vol] 0.93 x10*3/uL Low 1.20-4.[address] [facility] Comment on above: Performed By: #### 5 7021-8 #### RENUKA LOPEZ ([id number]) [facility] ([facility]) [address] [place] [address] Lymphocytes/100 WBC (Bld) 20.0 % Normal 13.0-44.[address] [facility] Comment on above: Performed By: #### 5 7021-8 #### RENUKA LOPEZ ([id number]) [facility] ([facility]) [address] [place] [address] MCH (RBC) [Entitic mass] 25.6 pg Low 26.0-34.[address] [facility] Comment on above: Performed By: #### 5 7021-8 #### RENUKA LOPEZ ([id number]) [facility] ([facility]) [address] [place] [address] 35112 MCHC (RBC) [Mass/Vol] 31.6 g/dL Low 32.0-36.0 [facility] Comment on above: Performed By: #### 5 7021-8 #### RENUKA LOPEZ ([id number]) [facility] ([facility]) [address] [place] [address] MCV (RBC) [Entitic vol] 81 fL Normal 80-[address] [facility] Comment on above: Performed By: #### 5 7021-8 #### RENUKA LOPEZ ([id number]) [facility] ([facility]) [address] [place] [address] Monocytes (Bld) [#/Vol] 0.57 x10*3/uL Normal 0.10-1.[address] [facility] Comment on above: Performed By: #### 5 7021-8 #### RENUKA LOPEZ ([id number]) [facility] ([facility]) [facility] [place] [address] Monocytes/100 WBC (Bld) 12.2 % Normal 2.0-10.[address] [facility] Comment on above: Performed By: #### 5 7021-8 #### RENUKA LOPEZ ([id number]) [facility] ([facility]) [address] [place] [address] Neutrophils (Bld) [#/Vol] 3.02 x10*3/uL Normal 1.20-7.[address] [facility] Comment on above: Result Comment: Perc ent differential counts (%) should be interpreted in the context of the absolute cell counts (cells/uL). Performed By: #### 5 7021-8 #### RENUKA LOPEZ ([id number]) [facility] ([facility]) [address] [place] [address] 41464 Neutrophils/100 WBC (Bld) 64.8 % Normal 40.0-80.[address] [facility] Comment on above: Performed By: #### 5 7021-8 #### RENUKA LOPEZ ([id number]) [facility] ([facility]) [address] [place] [address] 36460 Nucleated RBC/100 WBC (Bld) [Ratio] 0.0 /100 WBCs Normal 0.0-0.[address] [facility] Comment on above: Performed By: #### 5 7021-8 #### RENUKA LOPEZ ([id number]) [facility] ([facility]) [address] [place] [address]73 Platelets (Bld) [#/Vol] 201 x10*3/uL Normal 150-[address] [facility] Comment on above: Performed By: #### 5 7021-8 #### RENUKA LOPEZ ([id number]) [facility] ([facility]) [address] [place] [address]9835 RBC (Bld) [#/Vol] 4.33 x10*6/uL Normal 4.00-5.20 [facility] Comment on above: Performed By: #### 5 7021-8 #### RENUKA LOPEZ ([id number]) [facility] ([facility]) [facility] [place] [address] WBC (Bld) [#/Vol] 4.7 x10*3/uL Normal 4.4-11.3 [facility] Comment on above: Performed By: #### 5 7021-8 #### RENUKA LOPEZ ([id number]) [facility] ([facility]) [address] [place] [address] HCG ( test) IA.rapi d Ql (U)Ordered By: Shawna Rodriguez on 10-30-2024 HCG ( test) Ql (U) Negative NEGATIVE [facility] Interpretation and review of laboratory results Normal [facility] HCG ( test) IA.rapi d Ql (U)on 10-30-2024 HCG ( test) Ql (U) Negative Normal NEGATIVE [facility] Comment on above: Performed By: #### 8 0384-1 #### RENUKA LOPEZ ([id number]) [facility] ([facility]) [address] [place] [address] HCG ( test) Ql (U)o n 07-06-2024 Interpretation and review of laboratory results Abnormal [facility] Work Phone: Preg Test, Ur Positive Abnormal Negative [facility] Work Phone: [facility] Work Phone: US Pelvis transvaginalon CRL 15.8 mm [facility] Work Phone: Comment on above: Live intrauterine pr egnancy at 8 weeks gestation which is consistent with LMP. EDC February 13, 2025 Live intrauterine at 8 weeks gestation consistent with LMP. EDC February 13, 2025 [facility] Work Phone: [facility] Work Phone: Radiology Study observation (narrative) [facility] Work Phone: CNPNon 06-30-2024 CNPN Telephone (OBGYWM) -------- DEBI VERDUZCO ([id number]) 2000 F Date Time Provider Department 06/30/24 [...] Encounter Status:Closed by IESHA EDDY on 07/07/24 [facility] XR FOOT LEFT 3+ VIEWSon XR FOOT LEFT 3+ VIEWS Interpreted By: Shae Jules, STUDY: Left foot dated 05/02/2024. INDICATION: Signs/Symptoms:ATTN GREAT AND 2ND TOES COMPARISON: None. ACCESSION NUMBER(S): [id number] ORDERING CLINICIAN: FILEMON RUIZ TECHNIQUE: Three views [...] Shae Dawn 05/02/2024 9:54 AM Dictation workstation: [id number] [facility] Surgical pathology studyOrde red By: Shae Sanchez on 03-13-2024 Laboratory comment Josue (Report) q1njvDFkMGYle4jaTSAiyQAk ZzEwMzNcZnRuYmpcdWMxIHtc kaQyKVbaa2BvE3EjGgDyIKgk bnNpXGRlZmxhbmcxMDMzXGZ0 gfWiHVMqLYqsDUOhEKmxTt7a oKYdbXufEpTlQLVyp7iwpxPH WMorZMYGZTe8u9uwVGPrQvA7 pKMnFCsuA7otjpRepWJfC9Bm s0YqUYi6wS50NXVsoD5ubGCv XNepmzAtTrB6ZXhaTWMlFvI6 OTGkoXMrUQAtX9vqGPTePPvt YROtQPhnvVNxUQW3fTmtd7V7 bGVzaGVldHtcZjBcZnMyMiBO m5NiBFo1tBlwL6VxITXnSaU4 bHQgUGFyYWdyYXBoIEZvbnQ7 cL75CKzrrhV6kWZqh7Pbq25g r398fJ5jhUQcRAC6ZMJgZIJm uQWmEFEmSNG9FTFfvMCeY4mx BkEveAYmE5QvOmNrxQMvE7Hx IhOohKUbT0IpUfVdmHKlTSOr gAY6VGlxz013RDT7WnEzUO2n Z7Bpq2T8vG1lrYWdEGZcgBId UaLnEZAfph7dtHGrFWzav8Qw NPI9jrS1mOIdsSPcOVFuSG69 Uhsan7IdWvxfSRM7TCMrxlSv h1Duj4xjOlGhakUzJ0ezU2Ts LZRoRAVmBNPlYmIrprEij3Dx z5GsbYOyhMo4a4ucBFSoMZHu pEvry9lkAVR5MXNmK8D5nFKc h0onPRxlCZWuoKZ8yqP2ZDmj WXUkrvX9pnS1UDsiBJQbiJM8 hsN0WPvuTJTgSsO7whM5YKmm QYLkYCS0YcScMTLvz7Yhljue UiGwg0NdtOPvNCvfQ93of205 BGOcxtZpZ3ugrWTeziriaIBc tncsZIhlvuQ1KPXxNGAmBGcs XGYxXGZzMjBcbGFuZzEwMzNc aGljaFxmMVxkYmNoXGYxXGxv D0luKqJyFqKlSSKPqUQ1zTLj j8utkgE7zOXeDI9dSFFdqZHv kjJdk8Z0LUC4lFXadX9wkHJn DDJtwCUmxuZbob42fNLfrOF7 IUNzTMJrmULrnU4pIYVdRPWT qV5pmZEGwjIlqcRlVJKnzYxt ep1EbTDdoy4vmKGpK8RlpFhf aWVzIHRoYXQgdGhleSBoYXZl QDSolmubd0YsAZZfeOWlS1Ze [id number] [facility] Work Phone: Pathology report Cancer Narrative Surgical Pathology Case: [id number] Authorizing Provider: Forrest Mohr MD Collected: 03/05/2024 0734 Ordering Location: [facility] Received: 03/05/[address] [place] [address] Pathologist: Shae Sanchez MD Specimens: A) - ILEUM BIOPSY, ILEUM BX B) - COLON - RANDOM BIOPSY [facility] Work Phone: Pathology report final diagnosis Narrative t7edyYRuIAWzuZSbRTIuP0dh mgDxYLCylFXtE7XdwocoXFjv TA9dAP5cdPohoYPmmLUpOODq GzKue6jyc588jUKpz6dpBMXS oqvslIr2tZejF94jp8E9Gjaf N1usSYXtFBmuKEXrNXvuuHPm QNq8EVOzeZQegxFmUiIeACBh mJFgfPL8VMYaYJ0oujlvXFju UAatEJYhzxR6BMNlsECbD3Al ZJNiJL8mdkeyXLV8QRlaLYEu UTP5KpVpEQLge3Uzmof9LeUm iJx7a9kiYVOkKQConJsxt2nv AMS0RVRjkSHrY5vpkC7jJODf VL3oiroyy7vaGOjlFCgxRAPq eQE1scD7OUNivNEmM1NgyI6p URPjXMAwnwWkgSeniE6pAyOe MlxjZjFccGFyIEEuICBURVJN UI5LWIZLJBXYCZqxTyjXHTAR RWS6MYZvhkx7NEDhNOJJXD3S TD4SYZMGCNHKDcNRJVVXDGcz UfWYHDUVBuStUp7YXWhAQFgN ROVjLJ3IFVJKO9BGVRTCZJ6h lRVmHHZhEnQkIVcYFV9RUD4E REFjNx0FJBDVKPZAOkMkXS6e P3JBRHnZPNAYQI5VIPBPPQNG UfruEOKheXTyHXSsEUVZN1yU TiizJnLGMB9BBMSPZ4DLNUIV MzpjAVPzjQFdND1yEo0uJ8xS YzwFVOTOYpIsQQaRSM5UAFLF Q7sUC3pGPBMLNA4USDH7UE9N V6HKUGOBWBBXMoTDR7xKGZhF IEFORCBEWVNQTEFTSUEuXHBh tfm0MCOaATGQMmSMNDrUQEJL KU5IEIENArQSQH4SPUaQTFOO Li0FIZZLDSPDIDBAGrcZMK5s cGFyXHBhcn0= [facility] Work Phone: Pathology report gross observation Narrative r3kxuNXuEQFiiSHvLFNkJ4zv itUeOEMrjIQeS3QngsysYXzc EQ1kAV2ciSquxVUyrOQrBJFl ByQbj2wph426uULzt8xmWXIB ljgcmXo3wQbkD22op1A8Oavb W12pfTUhMDA1NBOgKPAejPMr CEFhAOA6BHEuiELhX5pySGWq IW1ntpkxLOsdJRbrACJhpIR5 NHLzqQFoD2DiCGQgBXyiEEIi bgk0OnRvYa3lqTJffEszCOty DhvszJogv6IksZVgGWfxWIAm IAThKAndtoxlOPk3DBWkSJvg oXChLL5jdMgkWzcbzWgql5Wc dCBcXGlkIDUxMDAyIFxcZGIg M2DVJBGmVTExIye3MJJyKBn8 SBu8LH1BRoAoLRFiRMP3UPCg UDDoJYl9OCouMU2AAAs2CCW4 HAS0VpN3ZAHdQAVpPD8hAJdp xPVvBAbbe0AvScUoKMPrCLak ucT8UVApoeXfc4AeYBbwcFfq WFPmFgMmxUkqaW4yMsGcLCTS ExNXJWEvjHWxUABdvmGfj4Uj VZgyzblztIBzYEmeREB3rCFd PCZdTNJtSPYzAB33S0QepoGn KITxovEaxY9ckZr2FBrvsbCs XnZmNXHrVFNssCqvhQ5iApqe LCBhcmUgMiBmcmFnbWVudHMg s8KrbGRmEKNvv8P6KJAvn9T6 TOYxR4ocKBwxnTitZiI3ieIf MyYhhCAkTxBzkHOvLvNgZ23p GITiODVxdMVcrR6btkExvrPz fOYfkNP4HOIjvO5oeC75gqXj vqVzckSlO9Ica0W3wNHkNBEs owieIMMxKXRlBvAuPROgT7cu SNBaMJfQDSktVBDdZ2ZiK3Or ruK7LMOhirbuXngfiXdvz5Ov dCBcXGlkIDUxMDAyIFxcZGIg C5XDTLTjCRTwMpq4IIWoBHl4 RSm2EL1JKhRkRQJhXIU1SFTw BCXbJQx6XAzhMR4GHAi4AGU0 ELW7KYJ2XADeSFQoRM2gAKsi tAQtYFxww2IaAjPtDSTeHGvm rdX8VCRhccOyo5IdWhDkPUOl Q9beXnVzPXxldSGmsduociDu EBP0NSZnR1WtckXgCVorDWOx xc5pgPmeZYYnKMTtjQJlVKpc dGggdGhlIHBhdGllbnQncyBu AL4dWXEoBSLkt8CfcNJmwRCq lO4kSYRnKR8uRFJvo1sizvJs ZW7ai50pTxwgKQBewiFiwEQs fVxpaKCgAoNiX69ulaAaTL2e NQUdvoamn40kwYD0rJVecGOn KFdeweLiTUHvjcdglC4uNM72 ZOssWQ36XOicHC1lEQAlBvJS kUGod0FaP7ffKM3kpNQji1Up xCh3uXTnGDrxLGEhjZ1goJ1n TkJrYRVjIWW8AIFzEISnsfrx FGGgHQAuClWlHHGkS9kpSDRr LHzWYIllBHWwK2BrD8VhevJ2 o0ajmQsrl4OgbKBmKX3csICn fQ== [facility] Work Phone: Pathology report microscopic observation Narrative Other stain i0uaxIQxYRXksWWrWSStA1ah rpVqCFSolOQqC1BwokgiBNit WU9xGI1hgXucaLKrcKIfTNHb CpFvj4jod803wQZin0fsIWHB livrhAs5vRaiI48kf5I1Lbph I49ovFKwROY1SGDzAPUynZLu UPWvRBF6DEScnZMtR2hrKIPh RY9vcluhYYuxHZnqSRAxvGZ6 IARluHYmI3PjCTSfMSwnDIDw pxi8GaTyOv5jiIJnbUjtMQgp YXJkXHBsYWluXGZzMjAgTWlj hx2bI49ciYNvo3siUBKuKDA5 FQ5dcfJmAepzVYO7 [facility] Work Phone: Pathology report relevant history Narrative b6bmsJWzPETlqYMrFXTgN1nk rqIuQVNegICrB0XptuxtUJar TY2mVB6xrFkmlPOajVRlERBe PePnt9kgc359lIHww1yzNFNP hqdolIc0aOevC51wy5W4Tjzb R46mdNTjJUV2RUQmUGPhwFTm LMBnPYJ6CAMpwKInF1ofNRIc NT6mkyhnKXimMXzwZRDsaLJ1 YGIapYApF9GgAONxHAnpLVIb mql7XwVdZo1zsTHuqOciGHid YXJkXHBsYWluXGZzMjAgUmVj lKYqHLAgQWPddZ6sRyArIqQp bWluYWwgcGFpblxwYXJ9 [facility] Work Phone: [facility] Work Phone: COLONOSCOPYon 03-05-2024 Colonoscopy Table formatting fro m [...] Rubina Benitez RN 03/05/2024 0735 Procedure Location [address] [address] Referring Provider Forrest Mohr MD Procedure Provider Forrest Mohr MD [facility] Colonoscopy studyon 03-05-20 24 Table formatting [...] Rubina Benitez RN 03/05/2024 0735 Procedure Location [address] [address] Referring Provider Forrest Mohr MD Procedure Provider Forrest Mohr MD [facility] Work Phone: [facility] Work Phone: Radiology Study observation (narrative) [facility] Work Phone: Surgical pathology studyon 0 03-05-2024 Surgical pathology study Pathology report.total SEE COMMENT Surgical Pathology Case: [id number] Authorizing Provider: Forrest Mohr MD Collected: 03/05/2024 0734 Ordering Location: [facility] Received: 03/05/[address] [place] [address] Pathologist: Shae Sanchez MD Specimens: A) - [...] LMP Path report.microscopic observation Microscopic slides examined. [facility] CBC W Auto Differential pane l (Bld)on 01-30-2024 Basophils (Bld) [#/Vol] 0.05 10*3/uL [facility] Basophils/100 WBC (Bld) 0.5 % 0.0 - 2.0 % [facility] Eosinophils (Bld) [#/Vol] 0.07 10*3/uL [facility] Eosinophils/100 WBC (Bld) 0.7 % 0.0 - 6.0 % [facility] Erythrocyte distribution width (RBC) [Ratio] 13.1 % 11.5 - 14.5 % [facility] Hematocrit (Bld) [Volume fraction] 38.0 % 36.0 - 46.0 % [facility] Hemoglobin (Bld) [Mass/Vol] 12.3 g/dL 12.0 - 16.0 g/dL [facility] Immature granulocytes (Bld) [#/Vol] 0.03 10*3/uL [facility] Immature granulocytes/100 WBC (Bld) 0.3 % 0.0 - 0.9 % [facility] Comment on above: Immature Granulocyte Count (IG) includes promyelocytes, myelocytes and metamyelocytes but does not include bands. Percent differential counts (%) should be interpreted in the context of the absolute cell counts (cells/UL). Lymphocytes (Bld) [#/Vol] 1.53 10*3/uL [facility] Lymphocytes/100 WBC (Bld) 15.7 % 13.0 - 44.0 % [facility] MCH (RBC) [Entitic mass] 28.8 pg 26.0 - 34.0 pg [facility] MCHC (RBC) [Mass/Vol] 32.4 g/dL 32.0 - 36.0 g/dL [facility] MCV (RBC) [Entitic vol] 89 fL 80 - 100 fL [facility] Monocytes (Bld) [#/Vol] 0.64 10*3/uL [facility] Monocytes/100 WBC (Bld) 6.6 % 2.0 - 10.0 % [facility] Neutrophils (Bld) [#/Vol] 7.40 10*3/uL [facility] Comment on above: Percent differential counts (%) should be interpreted in the context of the absolute cell counts (cells/uL). Neutrophils/100 WBC (Bld) 76.2 % 40.0 - 80.0 % [facility] Nucleated RBC/100 WBC (Bld) [Ratio] 0.0 % [facility] Platelets (Bld) [#/Vol] 203 10*3/uL [facility] RBC (Bld) [#/Vol] 4.27 10*6/uL [facility] WBC (Bld) [#/Vol] 9.7 10*3/uL [facility] CT Abdomen and Pelvis W cont rast [...] Avelina Eng 01/30/2024 12:37 PM Dictation workstation: [id number] Interpreted By: Avelina Gomez, STUDY: CT ABDOMEN PELVIS W IV CONTRAST; 01/30/2024 12:30 pm INDICATION: Signs/Symptoms:abdominal pain, rectal bleeding. COMPARISON: 03/08/2023 ACCESSION NUMBER(S): [id number] ORDERING CLINICIAN: SHAE PASTOR TECHNIQUE: CT of [...] pain, rectal bleeding. COMPARISON: 03/08/2023 ACCESSION NUMBER(S): [id number] ORDERING CLINICIAN: SHAE PASTOR TECHNIQUE: CT of [...] Avelina Eng 01/30/2024 12:37 PM Dictation workstation: [id number] [facility] Work Phone: Radiology Study observation (narrative) [facility] Work Phone: CT Abdomen and Pelvis W cont rast IVOrdered By: Avelina Eng on 01-30-2024 [facility] Work Phone: Comprehensive metabolic 2000 panelon 01-30-2024 Albumin BCP dye [Mass/Vol] 4.2 g/dL 3.4 - 5.0 g/dL [facility] ALP [Catalytic activity/Vol] 81 U/L 33 - 110 U/L [facility] ALT With P-5'-P [Catalytic activity/Vol] 10 U/L 7 - 45 U/L [facility] Comment on above: Patients treated wit h Sulfasalazine may generate falsely decreased results for ALT. Anion gap [Moles/Vol] 10 mmol/L 10 - 2 0 mmol/L [facility] AST With P-5'-P [Catalytic activity/Vol] 14 U/L 9 - 39 U/L [facility] Bilirubin [Mass/Vol] 0.3 mg/dL 0.0 - 1 .2 mg/dL [facility] Calcium [Mass/Vol] 9.3 mg/dL 8.6 - 10. 3 mg/dL [facility] Chloride [Moles/Vol] 108 mmol/L High 98 - 10 7 mmol/L [facility] CO2 [Moles/Vol] 25 mmol/L 21 - 32 mmol/L [facility] Creatinine [Mass/Vol] 0.57 mg/dL 0.50 - 1.05 mg/dL [facility] eGFR - PINF [facility] Comment on above: Calculations of nilson mated GFR are performed using the 2020 CKD-EPI Study Refit equation without the race variable for the IDMS-Traceable creatinine methods. https://jasn.asnjournals.org/content/early/ASN.85548 41400 Glucose [Mass/Vol] 94 mg/dL 74 - 99 mg/dL [facility] Interpretation and review of laboratory results Abnormal [facility] Potassium [Moles/Vol] 3.7 mmol/L 3.5 - 5.3 mmol/L [facility] Protein [Mass/Vol] 6.8 g/dL 6.4 - 8.2 g/dL [facility] Sodium [Moles/Vol] 139 mmol/L 136 - 145 mmol/L [facility] Urea nitrogen [Mass/Vol] 12 mg/dL 6 - 23 mg/dL [facility] HCG.beta subunit Qnon 2023 Interpretation and review of laboratory results Normal [facility] Total HCG measuremen t is performed using the Karoline Zayda Access Immunoassay which detects intact HCG and free beta HCG subunit. This test is not indicated for use as a tumor marker. HCG testing is performed using a different test methodology at [facility] than other [facility]. Direct result comparison should only be made within the same method. [facility] Human Chorionic Gonadotropin , Serum Quantitativeon 01-30-2024 HCG.beta subunit Qn NINF [facility] Lactateon 01-30-2024 Lactate [Moles/Vol] 0.9 mmol/L 0.4 - 2. 0 mmol/L [facility] Lipaseon 01-30-2024 Lipase [Catalytic activity/Vol] 20 U/L 9 - 82 U/L [facility] No Panel Informationon 01-29 Interpretation and review of laboratory results Normal [facility] Venipuncture immedia tely after or during the administration of Metamizole may lead to falsely low results. Testing should be performed immediately prior to Metamizole dosing. [facility] Urinalysis complete W Reflex Culture panel (U)on 01-30-2024 Appearance (U) Clear Clear [facility] Bilirubin (U) [Mass/Vol] Negative NEGATIVE [facility] Color (U) Straw Straw, Yellow [facility] Glucose Auto test strip (U) [Mass/Vol] Negative NEGATIVE mg/dL [facility] Interpretation and review of laboratory results Normal [facility] Ketones (U) [Mass/Vol] Negative NEGAT [place] mg/dL [facility] Leukocyte esterase Auto test strip Ql (U) Negative NEGATIVE [facility] Nitrite Auto test strip Ql (U) Negative NEGATIVE [facility] pH (U) 6.0 [pH] 5.0, 5.5, 6.0, 6.5, 7.0, 7.5, 8.0 [facility] Protein (U) [Mass/Vol] Negative NEGAT [place] mg/dL [facility] RBC (U) [#/Vol] Negative NEGATIVE [facility] Specific gravity (U) [Rel density] 1.013 1.005 - 1.035 [facility] Urobilinogen (U) [Mass/Vol] mg/dL NINF - 2.0 mg/dL [facility] ACETAMINOPHENon 12-27-2022 Acetaminophen [Mass/Vol] ug/mL Normal 10.0 - 30.0 [facility] Comment on above: Performed By: #### A CETA ####[address] [address] ALCOHOLon 12-27-2022 Ethanol [Mass/Vol] mg/dL Normal [facility] Comment on above: Result Comment: FOR MEDICAL USE ONLY. . REF VALUES <10 Performed By: #### A LC ####[address] [address] CBC AND DIFFERENTIALon 12-27 % AUTOMATED IMMATURE GRAN 0.4 % Normal 0.0 - 0.9 [facility] Comment on above: Result Comment: Arielle ture Granulocyte Count (IG) includes promyelocytes, myelocytes and metamyelocytes but does not include bands. Percent differential counts (%) should be interpreted in the context of the absolute cell counts (cells/L). Performed By: #### C BCDF ####[address] [address] Basophils (Bld) [#/Vol] 0.05 10*3/uL Normal 0.00 - 0.10 [facility] Comment on above: Performed By: #### C BCDF ####[address] [address] Basophils/100 WBC (Bld) 0.5 % Normal 0.0 - 2.0 [facility] Comment on above: Performed By: #### C BCDF ####[address] [address] Eosinophils (Bld) [#/Vol] 0.09 10*3/uL Normal 0.00 - 0.70 [facility] Comment on above: Performed By: #### C BCDF ####[address] [address] Eosinophils/100 WBC (Bld) 1.0 % Normal 0.0 - 6.0 [facility] Comment on above: Performed By: #### C BCDF ####[address] [address] Erythrocyte distribution width (RBC) [Ratio] 12.8 % Normal 11.5 - 14.5 [facility] Comment on above: Performed By: #### C BCDF ####[address] [place] [address] Hematocrit (Bld) [Volume fraction] 39.1 % Normal 36.0 - 46.0 [facility] Comment on above: Performed By: #### C BCDF ####[address] [address] Hemoglobin (Bld) [Mass/Vol] 12.8 g/dL Normal 12.0 - 16.0 [facility] Comment on above: Performed By: #### C BCDF ####[address] [address] Lymphocytes (Bld) [#/Vol] 2.21 10*3/uL Normal 1.20 - 4.80 [facility] Comment on above: Performed By: #### C BCDF ####[address] [address] Lymphocytes/100 WBC (Bld) 23.5 % Normal 13.0 - 44.0 [facility] Comment on above: Performed By: #### C BCDF ####[address] [address] MCHC (RBC) [Mass/Vol] 32.7 g/dL Normal 32.0 - 36.0 [facility] Comment on above: Performed By: #### C BCDF ####[address] [address] MCV (RBC) [Entitic vol] 87 fL Normal 80 - 100 [facility] Comment on above: Performed By: #### C BCDF ####[address] [address] Monocytes (Bld) [#/Vol] 0.95 10*3/uL Normal 0.10 - 1.00 [facility] Comment on above: Performed By: #### C BCDF ####[address] [address] Monocytes/100 WBC (Bld) 10.1 % Normal 2.0 - 10.0 [facility] Comment on above: Performed By: #### C BCDF ####[address] [address] Neutrophils (Bld) [#/Vol] 6.07 10*3/uL Normal 1.20 - 7.70 [facility] Comment on above: Result Comment: Perc ent differential counts (%) should be interpreted in the context of the absolute cell counts (cells/L). Performed By: #### C BCDF ####[address] [address] Neutrophils/100 WBC (Bld) 64.5 % Normal 40.0 - 80.0 [facility] Comment on above: Performed By: #### C BCDF ####[address] [address] Platelets (Bld) [#/Vol] 243 10*3/uL Normal 150 - 450 [facility] Comment on above: Performed By: #### C BCDF ####[address] [address] RBC 4.50 x10E12/L Normal 4.00 - 5.20 [facility] Comment on above: Performed By: #### C BCDF ####[address] [address] WBC (Bld) [#/Vol] 9.4 10*3/uL Normal 4.4 - 11.3 [facility] Comment on above: Performed By: #### C BCDF ####[address] [address] COMPREHENSIVE PANELon 2022 Albumin [Mass/Vol] 4.4 g/dL Normal 3.4 - 5.0 [facility] Comment on above: Performed By: #### C MP ####[address] [address] ALP [Catalytic activity/Vol] 102 U/L Normal 33 - 110 [facility] Comment on above: Performed By: #### C MP ####[address] [address] ALT [Catalytic activity/Vol] 13 U/L Normal 7 - 45 [facility] Comment on above: Result Comment: Lynsey ents treated with Sulfasalazine may generate falsely decreased results for ALT. Performed By: #### C MP ####[address] [address] Anion gap [Moles/Vol] 11 mmol/L Normal 10 - 20 [facility] Comment on above: Performed By: #### C MP ####[address] [address] AST [Catalytic activity/Vol] 16 U/L Normal 9 - 39 [facility] Comment on above: Performed By: #### C MP ####[address] [address] Bilirubin [Mass/Vol] 0.5 mg/dL Normal 0.0 - 1.2 [facility] Comment on above: Performed By: #### C MP ####[address] [address] Calcium [Mass/Vol] 9.5 mg/dL Normal 8.6 - 10.3 [facility] Comment on above: Performed By: #### C MP ####[address] [address] Chloride [Moles/Vol] 106 mmol/L Normal 98 - 107 [facility] Comment on above: Performed By: #### C MP ####[address] [address] Creatinine [Mass/Vol] 0.64 mg/dL Normal 0.50 - 1.05 [facility] Comment on above: Performed By: #### C MP ####[address] [address] eGFR FEMALE >90 Normal >90 [facility] Comment on above: Result Comment: CALC ULATIONS OF ESTIMATED GFR ARE PERFORMED USING THE 2020 CKD-EPI STUDY REFIT EQUATION WITHOUT THE RACE VARIABLE FOR THE IDMS-TRACEABLE CREATININE METHODS. https://jasn.asnjournals.org/content//ASN.21302 [address]100[address] Performed By: #### C MP ####[address] [address] Glucose [Mass/Vol] 66 mg/dL Low 74 - 99 [facility] Comment on above: Performed By: #### C MP ####[address] [address] HCO3 (Bld) [Moles/Vol] 27 mmol/L Normal 21 - 32 [facility] Comment on above: Performed By: #### C MP ####[address] [address] Potassium [Moles/Vol] 3.5 mmol/L Normal 3.5 - 5.3 [facility] Comment on above: Performed By: #### C MP ####[place] [id number] Protein [Mass/Vol] 7.2 g/dL Normal 6.4 - 8.2 [facility] Comment on above: Performed By: #### C MP ####[place] [id number] Sodium [Moles/Vol] 140 mmol/L Normal 136 - 145 [facility] Comment on above: Performed By: #### C MP ####[place] [id number] Urea nitrogen [Mass/Vol] 11 mg/dL Normal 6 - 23 [facility] Comment on above: Performed By: #### C MP ####[place] [id number] DRUG SCREEN,URINEon 12-28-19 23 AMPHETAMINE SCREEN,U Negative Normal NEGATIVE [facility] Comment on above: Result Comment: CUTO FF LEVEL: 500 NG/ML Cross-reactivity has been reported with high concentrations of the following drugs: buproprion, chloroquine, chlorpromazine, ephedrine, mephentermine, fenfluramine, phentermine, phenylpropanolamine, pseudoephedrine, and propranolol. Performed By: #### D RUG3 #### [place] [address] BARBITURATES SCREEN,U Negative Normal NEGATIVE [facility] Comment on above: Result Comment: CUTO FF LEVEL: 200 NG/ML Performed By: #### D RUG3 #### [place] [id number] BENZODIAZEPINES SCREEN,U Negative Normal NEGATIVE [facility] Comment on above: Result Comment: CUTO FF LEVEL: 200 NG/ML Performed By: #### D RUG3 #### [place] [address] CANNABINOIDS SCREEN,U Negative Normal NEGATIVE [facility] Comment on above: Result Comment: CUTO FF LEVEL: 50 NG/ML Performed By: #### D RUG3 #### [place] [address] COCAINE METABOLITE SCREEN,U Negative Normal NEGATIVE [facility] Comment on above: Result Comment: CUTO FF LEVEL: 150 NG/ML Performed By: #### D RUG3 #### [place] [address] DRUG SCREEN COMMENT SEE BELOW [facility] Comment on above: Result Comment: Drug screen results are presumptive and should not be used to assess compliance with prescribed medication. Contact the performing [facility] laboratory to add-on definitive confirmatory testing [...] directors. Performed By: #### D RUG3 #### [place] [address] FENTANYL SCREEN,URINE Negative Normal NEGATIVE [facility] Comment on above: Result Comment: CUTO FF LEVEL: 5 NG/ML Performed By: #### D RUG3 #### [place] [address] METHADONE SCREEN,U Negative Normal NEGATIVE [facility] Comment on above: Result Comment: CUTO FF LEVEL: 150 NG/ML The metabolite F-qmvpk-ykhksqevysuqyq (LAAM) is not detected by this method in concentrations that would be found in the urine of patients on LAAM therapy. Performed By: #### D RUG3 #### [place] [address] OPIATES SCREEN,U Negative Normal NEGATIVE [facility] Comment on above: Result Comment: CUTO FF LEVEL: 300 NG/ML The opiate screen does not detect fentanyl, meperidine, or tramadol. Oxycodone is not consistently detected (refer to Oxycodone Screen, Urine result). Performed By: #### D RUG3 #### [place] [address] OXYCODONE SCREEN,U Negative Normal NEGATIVE [facility] Comment on above: Result Comment: CUTO FF LEVEL: 100 NG/ML This test will accurately detect both oxycodone and oxymorphone. Performed By: #### D RUG3 #### [place] [address] PCP SCREEN,U Negative Normal NEGATIVE [facility] Comment on above: Result Comment: CUTO FF LEVEL: 25 NG/ML Cross-reactivity has been reported with dextromethorphan. 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 Sensation and motor function of extremities grossly intact. Psych: Appropriate mood and affect. I have reviewed and confirmed nurses/medics notes for patient past, social and family history. Portions of this note were dictated by speech recognition. An attempt at proof reading was made to minimize errors. Minor errors in account strategist may be present. HISTORY OF PRESENTING ILLNESS [...] results: Acetylsalicylic Acid Level, Serum Trending View [id number] 18:49:00 27-Dec-2022 16:12:00 Acetylsalicylic Acid Level, Serum<3 3 L Drug Screen, Urine 27-Dec-2022 16:39:00 ResultValue Comments. SEE BELOW Drug screen results are presumptive and should not be used to assess compliance with prescribed medication. Contact the performing [facility] laboratory to add-on definitive confirmatory testing [...] NEGATIVE CUTOFF LEVEL: 150 NG/ML The metabolite C-dhsry-hvtikmbfkqswso (LAAM) is not detected by this method [...] 27-Dec-2022 1 (more content not included)... Normal [facility] SALICYLATEon 12-27-2022 SALICYLATE <3 Normal 4 - 20 [facility] Comment on above: Performed By: #### S [facility] ####[facility] [place] [address] SALICYLATE 3 mg/dL Low 4 - 20 [facility] Comment on above: Performed By: #### S ROGER #### [facility] [address] [place] [address] Triage - EDon 12-27-2022 Triage - ED [...] support. Weight: 132.2 pounds. Calculated 60.0 kg. Krebs Coma Scale: Best Eye Response: (E4) spontaneous [...] patient cognitively impaired not cognitively impaired Interventions: Darius Fall Interventions: LOW INTERVENTIONS: *patient oriented to [...] Shaw ( (more content not included)... Normal [facility] UA MICROSCOPICon 12-27-2022 Mucus Ql (Urine sed) 4+ /LPF Normal [facility] Comment on above: Performed By: #### S ALIC #### [place] [address] RBC 4 /HPF Normal 0-5 [facility] Comment on above: Performed By: #### S ALIC #### [place] [address] SQUAMOUS EPITH. CELLS 25 /HPF Normal [facility] Comment on above: Performed By: #### S ALIC #### [place] [address] WBC 12 /HPF Abnormal 0-5 [facility] Comment on above: Performed By: #### S ALIC #### [place] [address] URINALYSISon 12-27-2022 Appearance (U) SLT CLOUDY Normal CLEAR [facility] Comment on above: Performed By: #### U A ####[place] [address] Bilirubin Ql (U) Negative Normal NEGATIVE [facility] Comment on above: Performed By: #### U A ####[place] [address] Color (U) YELLOW Normal STRAW,YELLOW [facility] Comment on above: Performed By: #### U A ####[place] [address] Glucose Ql (U) Negative Normal NEGATIVE [facility] Comment on above: Performed By: #### U A ####[place] [address] Hemoglobin Ql (U) TRACE Abnormal NEGATIVE [facility] Comment on above: Performed By: #### U A ####[address] [address] Ketones Ql (U) Negative Normal NEGATIVE [facility] Comment on above: Performed By: #### U A ####[address] [address] Leukocyte esterase Test strip Ql (U) SMALL (1+) Abnormal NEGATIVE [facility] Comment on above: Performed By: #### U A ####[place] [id number] Nitrite Ql (U) Negative Normal NEGATIVE [facility] Comment on above: Performed By: #### U A ####[place] [address] pH (U) 7.0 [pH] Normal 5.0 - 8.0 [facility] Comment on above: Performed By: #### U A ####[place] [id number] Protein Ql (U) 30 (1+) Abnormal NEGATIVE [facility] Comment on above: Performed By: #### U A ####[place] [id number] Specific gravity (U) [Rel density] 1.025 Normal 1.005 - 1.035 [facility] Comment on above: Performed By: #### U A ####[address] [address] Urobilinogen (U) [Mass/Vol] 0.2 mg/dL Normal 0.0 - 1.9 [facility] Comment on above: Result Comment: SOME PIGMENTS AND MEDICATIONS MAY CAUSE A FALSE POSITIVE UROBILINOGEN Performed By: #### U A ####[place] [id number] Covid 19 Resultson 3 SARS-CoV-2 (COVID-19) RNA [...] You may also be contacted by the [facility] to see if any of your close [...] or Naproxen (Aleve) can also be used. Aadc-wxf-ahlmzkx cough and cold medicines can be used according to the instructions on the package. Some pjip-llw-wevtxvy medicines also contain acetaminophen. Make sure you [...] water are not available, use alcohol-based hand head charger. Avoid touching your eyes, nose, and mouth [...] 24 pedrito (more content not included)... Normal [facility] CBC AND DIFFERENTIALon 11-06 % AUTOMATED IMMATURE GRAN 0.3 % Normal 0.0 - 0.9 [facility] Comment on above: Result Comment: Arielle ture Granulocyte Count (IG) includes promyelocytes, myelocytes and metamyelocytes but does not include bands. Percent differential counts (%) should be interpreted in the context of the absolute cell counts (cells/L). Performed By: #### S ALIC #### [address] [address] Basophils (Bld) [#/Vol] 0.04 10*3/uL Normal 0.00 - 0.10 [facility] Comment on above: Performed By: #### S ALIC #### [address] [address] Basophils/100 WBC (Bld) 0.6 % Normal 0.0 - 2.0 [facility] Comment on above: Performed By: #### S ALIC #### [address] [address] Eosinophils (Bld) [#/Vol] 0.10 10*3/uL Normal 0.00 - 0.70 [facility] Comment on above: Performed By: #### S ALIC #### [address] [address] Eosinophils/100 WBC (Bld) 1.4 % Normal 0.0 - 6.0 [facility] Comment on above: Performed By: #### S ALIC #### [address] [address] Erythrocyte distribution width (RBC) [Ratio] 12.9 % Normal 11.5 - 14.5 [facility] Comment on above: Performed By: #### S ALIC #### [address] [address] Hematocrit (Bld) [Volume fraction] 39.0 % Normal 36.0 - 46.0 [facility] Comment on above: Performed By: #### S ALIC #### [address] [address] Hemoglobin (Bld) [Mass/Vol] 12.8 g/dL Normal 12.0 - 16.0 [facility] Comment on above: Performed By: #### S ALIC #### [address] [address] Lymphocytes (Bld) [#/Vol] 1.34 10*3/uL Normal 1.20 - 4.80 [facility] Comment on above: Performed By: #### S ALIC #### [address] [address] Lymphocytes/100 WBC (Bld) 18.9 % Normal 13.0 - 44.0 [facility] Comment on above: Performed By: #### S ALIC #### [address] [address] MCHC (RBC) [Mass/Vol] 32.8 g/dL Normal 32.0 - 36.0 [facility] Comment on above: Performed By: #### S ALIC #### [address] [address] MCV (RBC) [Entitic vol] 87 fL Normal 80 - 100 [facility] Comment on above: Performed By: #### S ALIC #### [address] [address] Monocytes (Bld) [#/Vol] 0.94 10*3/uL Normal 0.10 - 1.00 [facility] Comment on above: Performed By: #### S ALIC #### [address] [address] Monocytes/100 WBC (Bld) 13.3 % Normal 2.0 - 10.0 [facility] Comment on above: Performed By: #### S ALIC #### [address] [address] Neutrophils (Bld) [#/Vol] 4.64 10*3/uL Normal 1.20 - 7.70 [facility] Comment on above: Result Comment: Perc ent differential counts (%) should be interpreted in the context of the absolute cell counts (cells/L). Performed By: #### S ALIC #### [address] [address] Neutrophils/100 WBC (Bld) 65.5 % Normal 40.0 - 80.0 [facility] Comment on above: Performed By: #### S ALIC #### [address] [address] Platelets (Bld) [#/Vol] 172 10*3/uL Normal 150 - 450 [facility] Comment on above: Performed By: #### S ALIC #### [address] [address] RBC 4.46 x10E12/L Normal 4.00 - 5.20 [facility] Comment on above: Performed By: #### S ALIC #### [address] [address] WBC (Bld) [#/Vol] 7.1 10*3/uL Normal 4.4 - 11.3 [facility] Comment on above: Performed By: #### S ALIC #### [address] [address] CHEST 1 VIEWon 11-06-2022 CHEST 1 VIEW Patient Name: DEBI VERDUZCO STUDY: CHEST 1 VIEW; 11/06/2022 2:49 pm INDICATION: Chest Pain . COMPARISON: None. ACCESSION NUMBER(S): [id number] ORDERING CLINICIAN: STEPHANIE VILLA TECHNIQUE: Single AP portable view of the [...] Electronically signed by: CALVIN PALMA MD Normal [facility] COMPREHENSIVE PANELon 2022 Anion gap [Moles/Vol] 8 mmol/L Low 10 - 20 [facility] Comment on above: Performed By: #### C MP ####[address] [address] HCO3 (Bld) [Moles/Vol] 30 mmol/L Normal 21 - 32 [facility] Comment on above: Performed By: #### C MP ####[address] [address] Potassium [Moles/Vol] 3.7 mmol/L Normal 3.5 - 5.3 [facility] Comment on above: Performed By: #### C MP ####[address] [address] Sodium [Moles/Vol] 138 mmol/L Normal 136 - 145 [facility] Comment on above: Performed By: #### C MP ####[address] [address] Albumin [Mass/Vol] 4.1 g/dL Normal 3.4 - 5.0 [facility] Comment on above: Performed By: #### C MP ####[address] [address] ALP [Catalytic activity/Vol] 79 U/L Normal 33 - 110 [facility] Comment on above: Performed By: #### C MP ####[address] [address] ALT [Catalytic activity/Vol] 19 U/L Normal 7 - 45 [facility] Comment on above: Result Comment: Lynsey ents treated with Sulfasalazine may generate falsely decreased results for ALT. Performed By: #### C MP ####[address] [address] AST [Catalytic activity/Vol] 14 U/L Normal 9 - 39 [facility] Comment on above: Performed By: #### C MP ####[address] [address] Bilirubin [Mass/Vol] 0.4 mg/dL Normal 0.0 - 1.2 [facility] Comment on above: Performed By: #### C MP ####[address] [address] Calcium [Mass/Vol] 9.5 mg/dL Normal 8.6 - 10.3 [facility] Comment on above: Performed By: #### C MP ####[address] [address] Chloride [Moles/Vol] 104 mmol/L Normal 98 - 107 [facility] Comment on above: Performed By: #### C MP ####[address] [address] Creatinine [Mass/Vol] 0.63 mg/dL Normal 0.50 - 1.05 [facility] Comment on above: Performed By: #### C MP ####[address] [address] eGFR FEMALE >90 Normal >90 [facility] Comment on above: Result Comment: CALC ULATIONS OF ESTIMATED GFR ARE PERFORMED USING THE 2020 CKD-EPI STUDY REFIT EQUATION WITHOUT THE RACE VARIABLE FOR THE IDMS-TRACEABLE CREATININE METHODS. https://jasn.asnjournals.org/content/early//ASN.93538 [address] Performed By: #### C MP ####[address] [address] Glucose [Mass/Vol] 102 mg/dL High 74 - 99 [facility] Comment on above: Performed By: #### C MP ####[address] [address] Protein [Mass/Vol] 7.1 g/dL Normal 6.4 - 8.2 [facility] Comment on above: Performed By: #### C MP ####[address] [address] Urea nitrogen [Mass/Vol] 8 mg/dL Normal 6 - 23 [facility] Comment on above: Performed By: #### C MP ####[address] [address] HCG,BETA-QUANTITATIVEon 02 HCG,BETA-QUANTITATIVE <2 Normal [facility] Comment on above: Result Comment: . Total HCG measurement is performed using the Karoline Zayda Access Immunoassay which detects intact HCG and free beta HCG subunit. . This test is not indicated for use as a tumor marker. HCG testing is performed using a different test methodology at [facility] than other [facility]. Direct result comparison should only be made within the same method. REF VALUES NON FEMALE <5 MALES <5 Performed By: #### S ALIC #### [place] [address] INFLUENZA A/B, COVID 2019 PC R,SYMPTOMATICon 11-06-2022 INFLUENZA A, PCR Not detected Normal Not Detected [facility] Comment on above: Result Comment: Resp iratory virus testing is performed routinely by PCR for Influenza A/B and RSV. Not Detected results do not preclude Influenza A/B or RSV infections since the adequacy of sample collection or low viral burden may impact the clinical sensitivity of this test method. Performed By: #### C OINP ####[place] [address] INFLUENZA B, PCR Not detected Normal Not Detected [facility] Comment on above: Result Comment: Resp iratory virus testing is performed routinely by PCR for Influenza A/B and RSV. Not Detected results do not preclude Influenza A/B or RSV infections since the adequacy of sample collection or low viral burden may impact the clinical sensitivity of this test method. Performed By: #### C OINP ####[place] [address] SARS-CoV-2 (COVID-19) RNA YOEL+probe Ql (Unsp spec) Not detected Normal Not Detected [facility] Comment on above: Result Comment: . This test has received FDA Emergency Use Authorization (EUA) and has been verified by [facility]. This test is only authorized for the duration of time that circumstances exist to justify the authorization of the emergency use of in vitro diagnostic tests for the detection of SARS-CoV-2 virus and/or diagnosis of COVID-19 infection under section 564(b)(1) of the Act, 21 U.S.C. 360bbb-3(b)(1), unless the authorization is terminated or revoked sooner. [facility] is certified under CLIA-88 as qualified to perform high complexity testing. Testing is performed in the [facility] laboratory located at [address] [place] [address]. SARS-CoV-2/Flu/RSV Multiplex Test: Fact sheet for providers: https://www.fda.gov/media/688406/download Fact sheet for patients: https://www.fda.gov/media/589298/download Performed By: #### C YENNY ####[address] [address] Lab Specimen Source Nasal, Nasopharyngeal Normal [facility] Comment on above: Performed By: #### C YENNY ####[place] [address] [place] [address] Provider Note - ED v3on Provider Note - ED v3 Provider Note: Chart Review: ED NOTES ED NOTES: HPI: Patient is a 22-year-old G2, P1 presenting to the emergency department with myalgias, chills, and L breast pain. Patient reportedly had a spontaneous miscarriage last week. She states that she subsequently followed up with her [employer] Dr. Delgado. She states that she was [...] Authorization (EUA) and has been verified by [facility]. This test is only authorized for the duration of time that circum Complete Blood Count + Differential 06-Nov-2022 14:44:00 Result (more content not included)... Normal [facility] Provider Note - ED v3 This report has be en cancelled. Normal [facility] Risk Screen - Adult Emergenc yon 11-06-2022 [...] material; verbal instruction Cultural Considerationsnone Developmental Considerationsnone Muslim Considerationsnone Learning Assessment (Other Learner): Learning Assessment (Other Learner): Other learner availableno Pressure Injury/TB/Substance: Pressure Injury: Do you have a coughno Smoking Statusnever smoker Alcohol Usedenies Drug Usedenies Admission Risk Screen: Significant IndicatorsComplete CAGE: CAGE: Is this an injured patient at a Trauma Center ([facility], [place] /[place]): no Electronic Signatures: Bridget Gamboa (DONNELL) (Signed 06-Nov-2022 14:32) Authored: Preferred Language, Patient Preferred Pharmacy, Advanced Directives, Family Violence Adult, Learning Assessment (Patient), Learning Assessment (Other Learner), Pressure Injury/TB/Substance, Pressure Injury, CAGE Last Updated: 06-Nov-2022 14:32 by Bridget Gamboa (DONNELL) Normal [facility] TROPONIN I, HIGH SENSITIVITY on 11-06-2022 TROPONIN I, HIGH SENSITIVITY <3 Normal 0 - 13 [facility] Comment on above: Result Comment: . Less [...] performed using a different testing methodology at [facility] than at other [facility]. Direct result comparisons should only be made within the same method. Performed By: #### T [facility] #### [place] [id number] [place] [address] Triage - EDon 11-06-2022 Triage - ED [...] BMI (kg/m2): 22.452 Calculated BSA (m2) 1.68 Ferdinand Coma Scale: Best Eye Response: (E4) spontaneous Best Motor Response: (M6) obeys commands Best Verbal Response: (V5) oriented Krebs Score: 15 Allergies: no Patient has homicidal [...] Last Updated: 06-Nov-2022 14:30 by Bridget Gamboa (DONNELL) [facility] URINALYSIS WITH CULTURE IF I NDICATEDon 11-06-2022 Appearance (U) Canceled [facility] Comment on above: Order Comment: TEST URINALYSIS WITH CULTURE IF INDICATED WAS CANCELLED, 11/06/2022 18:28PATIENT DISCHARGED. Performed By: #### U ARFX ####[address] [place] [address] ASCORBIC ACID Canceled [facility] Comment on above: Order Comment: TEST URINALYSIS WITH CULTURE IF INDICATED WAS CANCELLED, 11/06/2022 18:28PATIENT DISCHARGED. Result Comment: Conc entrations > = 20 mg/dL of ascorbic acid can be expected to cause strong interference in the reactions testing for glucose, nitrite and blood. It is recommended to discontinue Vitamin C administration and retest in 10 hours. Performed By: #### U ARFX ####[address] [address] Bilirubin Ql (U) Canceled [facility] Comment on above: Order Comment: TEST URINALYSIS WITH CULTURE IF INDICATED WAS CANCELLED, 11/06/2022 18:28PATIENT DISCHARGED. Performed By: #### U ARFX ####[address] [address] Color (U) Canceled [facility] Comment on above: Order Comment: TEST URINALYSIS WITH CULTURE IF INDICATED WAS CANCELLED, 11/06/2022 18:28PATIENT DISCHARGED. Performed By: #### U ARFX ####[address] [address] Glucose Ql (U) Canceled [facility] Comment on above: Order Comment: TEST URINALYSIS WITH CULTURE IF INDICATED WAS CANCELLED, 11/06/2022 18:28PATIENT DISCHARGED. Performed By: #### U ARFX ####[address] [address] Hemoglobin Ql (U) Canceled [facility] Comment on above: Order Comment: TEST URINALYSIS WITH CULTURE IF INDICATED WAS CANCELLED, 11/06/2022 18:28PATIENT DISCHARGED. Performed By: #### U ARFX ####[address] [address] Ketones Ql (U) Canceled [facility] Comment on above: Order Comment: TEST URINALYSIS WITH CULTURE IF INDICATED WAS CANCELLED, 11/06/2022 18:28PATIENT DISCHARGED. Performed By: #### U ARFX ####[address] [address] Leukocyte esterase Test strip Ql (U) Canceled [facility] Comment on above: Order Comment: TEST URINALYSIS WITH CULTURE IF INDICATED WAS CANCELLED, 11/06/2022 18:28PATIENT DISCHARGED. Performed By: #### U ARFX ####[place] [id number] Nitrite Ql (U) Canceled [facility] Comment on above: Order Comment: TEST URINALYSIS WITH CULTURE IF INDICATED WAS CANCELLED, 11/06/2022 18:28PATIENT DISCHARGED. Performed By: #### U ARFX ####[place] [id number] pH Canceled [facility] Comment on above: Order Comment: TEST URINALYSIS WITH CULTURE IF INDICATED WAS CANCELLED, 11/06/2022 18:28PATIENT DISCHARGED. Performed By: #### U ARFX ####[place] [address] Protein Ql (U) Canceled [facility] Comment on above: Order Comment: TEST URINALYSIS WITH CULTURE IF INDICATED WAS CANCELLED, 11/06/2022 18:28PATIENT DISCHARGED. Performed By: #### U ARFX ####[place] [id number] Specific gravity (U) [Rel density] Canceled [facility] Comment on above: Order Comment: TEST URINALYSIS WITH CULTURE IF INDICATED WAS CANCELLED, 11/06/2022 18:28PATIENT DISCHARGED. Performed By: #### U ARFX ####[place] [id number] UROBILINOGEN Canceled [facility] Comment on above: Order Comment: TEST URINALYSIS WITH CULTURE IF INDICATED WAS CANCELLED, 11/06/2022 18:28PATIENT DISCHARGED. Performed By: #### U ARFX ####[place] [id number] US TRANSVAGINALon 11-06-2022 US TRANSVAGINAL Patient Name: DEBI VERDUZCO STUDY: US TRANSVAGINAL; 11/06/2022 3:27 pm INDICATION: chills, fevers, pain, s/p miscarriage rule out retained products . COMPARISON: 10/21/2022. ACCESSION NUMBER(S): [id number] ORDERING CLINICIAN: STEPHANIE VILLA TECHNIQUE: Multiple multiplanar static coffman scale, color [...] abnormality. Electronically signed by: BABS ELLER MD [facility] [employer] - Office Visiton [employer] - Office Visit Diagnoses/Problems Assessed Mastitis of [...] 1 TABLET DAILY. Vitals Vital Signs Recorded: [id number] 03:34PM Zxqtwpmw477 Yxdlpuhvg50 Height5 ft 5 in Vsllml77.2 kg BMI Klpmdwechw70.82 kg/m2 BSA Calculated1.68 Physical Exam PHYSICAL EXAMINATION: [...] Quantitativeon HCG.beta subunit Qn 256 m[IU]/mL Abnormal [facility] [address] Work Phone: Comment on above: .Total HCG measureme nt is performed using the Karoline Zayda AccessImmunoassay which detects intact HCG and free beta HCG subunit. .This test is not indicated for use as a tumor marker.HCG testing is performed using a different test methodology at [facility] than other [facility] hospitals. Direct result comparisonshould only [...] elevation. HCG,BETA-QUANTITATIVEon 10-01 HCG,BETA-QUANTITATIVE 256 mIU/mL Abnormal [facility] Comment on above: Result Comment: . Total HCG measurement is performed using the Karoline Zayda Access Immunoassay which detects intact HCG and free beta HCG subunit. . This test is not indicated for use as a tumor marker. HCG testing is performed using a different test methodology at [facility] than other [facility]. Direct result comparison should only be made [...] the HCG elevation. Performed By: #### H [facility] #### [place] [address] LMPon 10-23-2022 Last menstrual period start date 25Aug2022 [employer] [employer] Work Phone: [employer] - Office Visiton 10-01 [employer] - Office Visit Diagnoses/Problems Assessed Amenorrhea (626.0) [...] DAILY. Vitals Vital Signs Recorded: 23Oct2022 01:40PM Ngjktdsi404 Swzbokmqe91 Height5 ft 5 in Kswwhw85.6 kg BMI Khdpfsljty67.6 kg/m2 BSA Calculated1.68 [id number] Physical Exam General: No acute distress Eye: Intraocular movements are intact HEENT: Normocephalic Respiratory: Respirations are nonlabored Gastrointestinal: Nondistended Musculoskeletal: Normal range of motion Neurologic: Alert and oriented x3 Psychiatric: Cooperative, appropriate mood and affect. Results/Data Complete Blood Count + [id number] 07:20PMNon Ambulatory, Provider Ordering Provider: EMILY CLAROS [address] Test NameResultFlagReference White Blood Cell Count6.1 x10E9/L4.4 - 11.3 Red Blood Cell Count4.14 x10E12/LSee Below Reference Range: 4.00 - 5.20 Yfbbwlauop92.8 g/dLLSee Below Reference Range: 12.0 - 16.0 HCT36.3 %See Below Reference Range: 36.0 - 46.0 MCV88 fL80 - 100 MCHC32.5 g/dLSee Below Reference Range: 32.0 - 36.0 Platelet Pnkfo137 x10E9/L150 - 450 RDW-CV13.1 %See Below Reference Range: 11.5 - 14.5 Neutrophil %61.3 %See Below Reference Range: 40.0 - 80.0 % Automated Immature Gran0. (more content not included)... Normal [facility] BASIC METABOLIC PANELon 10-01 Anion gap [Moles/Vol] 9 mmol/L Low 10 - 20 [facility] Comment on above: Performed By: #### S ALIC #### [place] [address] Chloride [Moles/Vol] 107 mmol/L Normal 98 - 107 [facility] Comment on above: Performed By: #### S ALIC #### [place] [id number] HCO3 (Bld) [Moles/Vol] 28 mmol/L Normal 21 - 32 [facility] Comment on above: Performed By: #### S ALIC #### [address] [address] Potassium [Moles/Vol] 3.5 mmol/L Normal 3.5 - 5.3 [facility] Comment on above: Performed By: #### S ALIC #### [address] [address] Sodium [Moles/Vol] 140 mmol/L Normal 136 - 145 [facility] Comment on above: Performed By: #### S ALIC #### [address] [address] Calcium [Mass/Vol] 8.6 mg/dL Normal 8.6 - 10.3 [facility] Comment on above: Performed By: #### S ALIC #### [address] [address] Creatinine [Mass/Vol] 0.57 mg/dL Normal 0.50 - 1.05 [facility] Comment on above: Performed By: #### S ALIC #### [address] [address] eGFR FEMALE >90 Normal >90 [facility] Comment on above: Result Comment: CALC ULATIONS OF ESTIMATED GFR ARE PERFORMED USING THE 2020 CKD-EPI STUDY REFIT EQUATION WITHOUT THE RACE VARIABLE FOR THE IDMS-TRACEABLE CREATININE METHODS. https://jasn.asnjournals.org/content/early/ASN.51271 03874 Performed By: #### S ALIC #### [address] [address] Glucose [Mass/Vol] 93 mg/dL Normal 74 - 99 [facility] Comment on above: Performed By: #### S ALIC #### [address] [address] Urea nitrogen [Mass/Vol] 8 mg/dL Normal 6 - 23 [facility] Comment on above: Performed By: #### S ALIC #### [address] [address] CBC AND DIFFERENTIALon 10-21 % AUTOMATED IMMATURE GRAN 0.3 % Normal 0.0 - 0.9 [facility] Comment on above: Result Comment: Arielle ture Granulocyte Count (IG) includes promyelocytes, myelocytes and metamyelocytes but does not include bands. Percent differential counts (%) should be interpreted in the context of the absolute cell counts (cells/L). Performed By: #### S ALIC #### [address] [address] Basophils (Bld) [#/Vol] 0.03 10*3/uL Normal 0.00 - 0.10 [facility] Comment on above: Performed By: #### S ALIC #### [address] [address] Basophils/100 WBC (Bld) 0.5 % Normal 0.0 - 2.0 [facility] Comment on above: Performed By: #### S ALIC #### [address] [address] Eosinophils (Bld) [#/Vol] 0.12 10*3/uL Normal 0.00 - 0.70 [facility] Comment on above: Performed By: #### S ALIC #### [address] [address] Eosinophils/100 WBC (Bld) 2.0 % Normal 0.0 - 6.0 [facility] Comment on above: Performed By: #### S ALIC #### [address] [address] Erythrocyte distribution width (RBC) [Ratio] 13.1 % Normal 11.5 - 14.5 [facility] Comment on above: Performed By: #### S ALIC #### [address] [address] Hematocrit (Bld) [Volume fraction] 36.3 % Normal 36.0 - 46.0 [facility] Comment on above: Performed By: #### S ALIC #### [address] [address] Hemoglobin (Bld) [Mass/Vol] 11.8 g/dL Low 12.0 - 16.0 [facility] Comment on above: Performed By: #### S ALIC #### [address] [address] Lymphocytes (Bld) [#/Vol] 1.55 10*3/uL Normal 1.20 - 4.80 [facility] Comment on above: Performed By: #### S ALIC #### [address] [address] Lymphocytes/100 WBC (Bld) 25.4 % Normal 13.0 - 44.0 [facility] Comment on above: Performed By: #### S ALIC #### [address] [address] MCHC (RBC) [Mass/Vol] 32.5 g/dL Normal 32.0 - 36.0 [facility] Comment on above: Performed By: #### S ALIC #### [address] [address] MCV (RBC) [Entitic vol] 88 fL Normal 80 - 100 [facility] Comment on above: Performed By: #### S ALIC #### [address] [address] Monocytes (Bld) [#/Vol] 0.64 10*3/uL Normal 0.10 - 1.00 [facility] Comment on above: Performed By: #### S ALIC #### [address] [address] Monocytes/100 WBC (Bld) 10.5 % Normal 2.0 - 10.0 [facility] Comment on above: Performed By: #### S ALIC #### [address] [address] Neutrophils (Bld) [#/Vol] 3.75 10*3/uL Normal 1.20 - 7.70 [facility] Comment on above: Result Comment: Perc ent differential counts (%) should be interpreted in the context of the absolute cell counts (cells/L). Performed By: #### S ALIC #### [address] [address] Neutrophils/100 WBC (Bld) 61.3 % Normal 40.0 - 80.0 [facility] Comment on above: Performed By: #### S ALIC #### [address] [address] Platelets (Bld) [#/Vol] 188 10*3/uL Normal 150 - 450 [facility] Comment on above: Performed By: #### S ALIC #### [address] [address] RBC 4.14 x10E12/L Normal 4.00 - 5.20 [facility] Comment on above: Performed By: #### S ALIC #### [address] [address] WBC (Bld) [#/Vol] 6.1 10*3/uL Normal 4.4 - 11.3 [facility] Comment on above: Performed By: #### S ALIC #### [address] [address] Complete Blood Count + Diffe thuan 10-21-2022 Basophils/100 WBC (Bld) 0.5 % 0.0 - 2.0 [facility] [address] [employer] [employer] Work Phone: [phone] Erythrocyte distribution width (RBC) [Ratio] 13.1 % See Below [facility] [address] [employer] Work Phone: [phone] Comment on above: Reference Range: 11. 5 - 14.5 Hematocrit (Bld) [Volume fraction] 36.3 % See Below [facility] [address] [employer] Work Phone: [phone] Comment on above: Reference Range: 36. 0 - 46.0 Hemoglobin (Bld) [Mass/Vol] 11.8 g/dL below low threshold See Below [facility] [address] [employer] Work Phone: [phone] Comment on above: Reference Range: 12. 0 - 16.0 Lymphocytes/100 WBC (Bld) 25.4 % See Below [facility] [address] [employer] Work Phone: [phone] Comment on above: Reference Range: 13. 0 - 44.0 MCHC (RBC) [Mass/Vol] 32.5 g/dL See Below [facility] [employer] Work Phone: [phone] Comment on above: Reference Range: 32. 0 - 36.0 MCV (RBC) [Entitic vol] 88 fL 80 - 100 [facility] [address] [employer] Work Phone: [phone] Monocytes/100 WBC (Bld) 10.5 % 2.0 - 10.0 [facility] [address] [employer] Work Phone: [phone] Neutrophils/100 WBC (Bld) 61.3 % See Below [facility] [address] [employer] Work Phone: [phone] Comment on above: Reference Range: 40. 0 - 80.0 Platelets (Bld) [#/Vol] 188 10*3/uL 150 - 450 [facility] [address] Work Phone: [phone] RBC (Bld) [#/Vol] 4.14 {x10E12/L} See Below [facility] [address] [employer] [employer] Work Phone: [phone] Comment on above: Reference Range: 4.0 0 - 5.20 WBC (Bld) [#/Vol] 6.1 10*3/uL 4.4 - 11.3 [facility] [employer] Work Phone: [phone] Complete Blood Count + Differential 0.03 {x10E9/L} See Below [facility] [address] [employer] Work Phone: [phone] Comment on above: Reference Range: 0.0 0 - 0.10 Complete Blood Count + Differential 0.12 {x10E9/L} See Below [facility] [address] [employer] Work Phone: [phone] Comment on above: Reference Range: 0.0 0 - 0.70 Complete Blood Count + Differential 0.64 {x10E9/L} See Below [facility] [address] [employer] Work Phone: [phone] Comment on above: Reference Range: 0.1 0 - 1.00 Complete Blood Count + Differential 1.55 {x10E9/L} See Below [facility] [address] [employer] Work Phone: [phone] Comment on above: Reference Range: 1.2 0 - 4.80 Complete Blood Count + Differential 3.75 {x10E9/L} See Below [facility] [address] [employer] Work Phone: [phone] Comment on above: Reference Range: 1.2 0 - 7.70 Percent differential counts (%) should be interpreted in the context of the absolute cell counts (cells/L). Complete Blood Count + Differential 2.0 % 0.0 - 6.0 [facility] [address] [employer] Work Phone: [phone] Complete Blood Count + Differential 0.3 % 0.0 - 0.9 [facility] [address] [employer] Work Phone: [phone] Comment on above: Immature Granulocyte Count (IG) includes promyelocytes, myelocytes and metamyelocytes but does not include bands. Percent differential counts (%) should be interpreted in the context of the absolute cell counts (cells/L). HCG, Beta Quantitativeon HCG.beta subunit Qn 761 m[IU]/mL Abnormal [facility] [employer] Work Phone: Comment on above: .Total HCG measureme nt is performed using the [employer] AccessImmunoassay which detects intact HCG and free beta HCG subunit. .This test is not indicated for use as a tumor marker.HCG testing is performed using a different test methodology at [facility] than other [facility] hospitals. Direct result comparisonshould only [...] elevation. HCG,BETA-QUANTITATIVEon 10-01 HCG,BETA-QUANTITATIVE 761 mIU/mL Abnormal [facility] Comment on above: Result Comment: . Total HCG measurement is performed using the Kar[employer] Zay[employer] Access Immunoassay which detects intact HCG and free beta HCG subunit. . This test is not indicated for use as a tumor marker. HCG testing is performed using a different test methodology at [facility] than other [facility]. Direct result comparison should only be made [...] the HCG elevation. Performed By: #### S [facility] #### [place] [address] Laboratory - Blood bankon ABO group Nom (Bld) A [facility] [address] [employer] [employer] Work Phone: Blood group antibody screen Ql Negative [facility] [address] Work Phone: [phone] Rh immune globulin screen (Bld) [Interp] Positive [facility] [address] Work Phone: [phone] Laboratory - Chemistry and C hemistry - challengeon 10-21-2022 Anion gap [Moles/Vol] 9 mmol/L below low threshold 10 - 20 [facility] [address] Work Phone: [phone] Calcium [Mass/Vol] 8.6 mg/dL 8.6 - 10.3 [facility] [address] Work Phone: [phone] Chloride [Moles/Vol] 107 mmol/L 98 - 107 [facility] [address] Work Phone: [phone] CO2 [Moles/Vol] 28 mmol/L 21 - 32 [facility] [address] Work Phone: [phone] Creatinine [Mass/Vol] 0.57 mg/dL See Below [facility] [address] Work Phone: [phone] Comment on above: Reference Range: 0.5 0 - 1.05 Glucose [Mass/Vol] 93 mg/dL 74 - 99 [facility] [address] Work Phone: [phone] Potassium [Moles/Vol] 3.5 mmol/L 3.5 - 5.3 [facility] [address] Work Phone: [phone] Sodium [Moles/Vol] 140 mmol/L 136 - 145 [facility] [address] Work Phone: [phone] Urea nitrogen [Mass/Vol] 8 mg/dL 6 - 23 [facility] [address] Work Phone: [phone] No Panel Informationon 10-21 Please click on the link to view the study images Normal [facility] [address] Work Phone: [phone] Normal [facility] [address] Work Phone: >[phone] >90 [facility] [address] [employer] Work Phone: Comment on above: CALCULATIONS OF NILSON MATED GFR ARE PERFORMED USING THE 2020 CKD-EPI STUDY REFIT EQUATION WITHOUT THE RACE VARIABLE FOR THE IDMS-TRACEABLE CREATININE METHODS.https://jasn.asnjournals.org/content/22/A SN.0482516495 Provider Note - ED v3on 10-01 Provider [...] made to minimize errors. Minor errors in account strategist may be present. Please call if questions.. [...] confirm th (more content not included)... Normal [facility] Risk Screen - Adult Emergenc yon 10-21-2022 [...] Learning Preferencesverbal instruction Cultural Considerationsnone Developmental Considerationsnone Muslim Considerationsnone Learning Assessment (Other Learner): Learning Assessment [...] an injured patient at a Trauma Center ([facility], [place] /[place]): no Electronic Signatures: Morena Hwang (RN) (Signed 21-Oct-2022 18:33) Authored: Preferred Language, Patient Preferred Pharmacy, Advanced Directives, Family Violence Adult, Learning Assessment (Patient), Learning Assessment (Other Learner), Pressure Injury/TB/Substance, Pressure Injury, CAGE Last Updated: 21-Oct-2022 18:33 by Morena Hwang (RN) [facility] TYPE + SCREENon 10-21-2022 ABO TYPE A [facility] Comment on above: Performed By: #### T +S ####[place] [address] RH TYPE Positive [facility] Comment on above: Performed By: #### T +S ####[address] [address] Triage - EDon 10-21-2022 Triage - ED [...] By: spouse/significant other Language: Spoken Language Preferred: Cypriot CHIEF COMPLAINT DEBI VERDUZCO is a Female [...] BMI (kg/m2): 22.378 Calculated BSA (m2) 1.67 Krebs Coma Scale: Best Eye Response: (E4) spontaneous Best Motor Response: (M6) obeys commands Best Verbal Response: (V5) oriented Krebs Score: 15 Allergies: no Mask applied: yes [employer] History: Patient has homicidal thoughts: no Risk [...] Updated: 21-Oct-2022 18:29 by Morena Hwang (DONNELL) [facility] US PELVIS OB TRANSABDOMINAL W TRANSVAGINAL UP TO 1st TRIMESTERon 10-21-2022 US PELVIS OB TRANSABDOMINAL W TRANSVAGINAL UP TO 1st TRIMESTER Patient Name: DEBI VERDUZCO STUDY: US PELVIS OB TRANSABDOMINAL WITH TRANSVAGINAL; 10/21/2022 9:02 pm INDICATION: vaginal bleeding, cramping . COMPARISON: None. ACCESSION NUMBER(S): [id number] ORDERING CLINICIAN: EMILY CLAROS TECHNIQUE: Grayscale and [...] above. Electronically signed by: CALVIN NAIDU MD [facility] HCG, Beta Quantitativeon HCG.beta subunit Qn 691 m[IU]/mL Abnormal [facility] [address] Work Phone: Comment on above: .Total HCG measureme nt is performed using the Karoline Zayda AccessImmunoassay which detects intact HCG and free beta HCG subunit. .This test is not indicated for use as a tumor marker.HCG testing is performed using a different test methodology at [facility] than other [facility]. Direct result comparisonshould only be made within [...] elevation. HCG,BETA-QUANTITATIVEon 10-01 HCG,BETA-QUANTITATIVE 691 mIU/mL Abnormal [facility] Comment on above: Result Comment: . Total HCG measurement is performed using the Karoline Zayda Access Immunoassay which detects intact HCG and free beta HCG subunit. . This test is not indicated for use as a tumor marker. HCG testing is performed using a different test methodology at [facility] than other [facility]. Direct result comparison should only be made [...] elevation. Performed By: #### H CGQU #### [facility] [address] [place] [address] ABO/RH GROUP TESTon 10-19-19 ABO TYPE A Normal [facility] Comment on above: Performed By: #### S ALIC #### [address] [address] RH TYPE Positive Normal [facility] Comment on above: Performed By: #### S ALIC #### [address] [address] BASIC METABOLIC PANELon 10-01 Anion gap [Moles/Vol] 6 mmol/L Low 10 - 20 [facility] Comment on above: Performed By: #### S ALIC #### [address] [address] Calcium [Mass/Vol] 9.1 mg/dL Normal 8.6 - 10.3 [facility] Comment on above: Performed By: #### S ALIC #### [address] [address] Chloride [Moles/Vol] 105 mmol/L Normal 98 - 107 [facility] Comment on above: Performed By: #### S ALIC #### [address] [address] Creatinine [Mass/Vol] 0.63 mg/dL Normal 0.50 - 1.05 [facility] Comment on above: Performed By: #### S ALIC #### [address] [address] eGFR FEMALE >90 Normal >90 [facility] Comment on above: Result Comment: CALC ULATIONS OF ESTIMATED GFR ARE PERFORMED USING THE 2020 CKD-EPI STUDY REFIT EQUATION WITHOUT THE RACE VARIABLE FOR THE IDMS-TRACEABLE CREATININE METHODS. https://jasn.asnjournals.org/content/early//ASN.09962 [address] Performed By: #### S ALIC #### [address] [address] Glucose [Mass/Vol] 109 mg/dL High 74 - 99 [facility] Comment on above: Performed By: #### S ALIC #### [address] [address] HCO3 (Bld) [Moles/Vol] 30 mmol/L Normal 21 - 32 [facility] Comment on above: Performed By: #### S ALIC #### [address] [address] Potassium [Moles/Vol] 3.4 mmol/L Low 3.5 - 5.3 [facility] Comment on above: Performed By: #### S ALIC #### [address] [address] Sodium [Moles/Vol] 138 mmol/L Normal 136 - 145 [facility] Comment on above: Performed By: #### S ALIC #### [place] [address] Urea nitrogen [Mass/Vol] 8 mg/dL Normal 6 - 23 [facility] Comment on above: Performed By: #### S ALIC #### [place] [address] CBCon 10-19-2022 Erythrocyte distribution width (RBC) [Ratio] 13.1 % Normal 11.5 - 14.5 [facility] Comment on above: Performed By: #### C BC #### [place] [address] Hematocrit (Bld) [Volume fraction] 37.7 % Normal 36.0 - 46.0 [facility] Comment on above: Performed By: #### C BC #### [address] [address] Hemoglobin (Bld) [Mass/Vol] 12.4 g/dL Normal 12.0 - 16.0 [facility] Comment on above: Performed By: #### C BC #### [address] [address] MCHC (RBC) [Mass/Vol] 32.9 g/dL Normal 32.0 - 36.0 [facility] Comment on above: Performed By: #### C BC #### [address] [address] MCV (RBC) [Entitic vol] 87 fL Normal 80 - 100 [facility] Comment on above: Performed By: #### C BC #### [address] [address] Platelets (Bld) [#/Vol] 208 10*3/uL Normal 150 - 450 [facility] Comment on above: Performed By: #### C BC #### [address] [address] RBC 4.32 x10E12/L Normal 4.00 - 5.20 [facility] Comment on above: Performed By: #### C BC #### [address] [address] WBC (Bld) [#/Vol] 7.1 10*3/uL Normal 4.4 - 11.3 [facility] Comment on above: Performed By: #### C BC #### [address] [address] HCG,BETA-QUANTITATIVEon 10-01 HCG,BETA-QUANTITATIVE 543 mIU/mL Abnormal [facility] Comment on above: Result Comment: . Total HCG measurement is performed using the [employer] Access Immunoassay which detects intact HCG and free beta HCG subunit. . This test is not indicated for use as a tumor marker. HCG testing is performed using a different test methodology at [facility] than other [facility]. Direct result comparison should only be made [...] HCG elevation. Performed By: #### H CGQU ####[address] [address] Provider Note - ED v3on 10-01 Provider [...] had an outpatient ultrasound ordered by her [employer] Dr. Delgado. She states this was done at an facility today and that nothing was seen. She states she had blood work drawn at [facility], it is unaware of the results. Patient [...] a ultrasound earlier today at center in [place] and the said that there was nothing [...] VITAL SIGNS: T PRBP SpO2O2(LPM) %FiO2 Method 19-Edi-2023 22:18:00-36.61291905/72 98 room (more content not included)... Normal [facility] Triage - EDon 10-19-2022 Triage - ED [...] a ultrasound earlier today at center in [place] and the said that there was nothing [...] obeys commands Best Verbal Response: (V5) oriented Krebs Score: 15 Allergies: no Last menstrual period: [...] Updated: 18-Oct-2022 23:30 by Tamar Castañeda (RN) [facility] Blood Typing (ABO + Rho D)on 10-18-2022 ABO group Nom (Bld) [facility] [address] [employer] [employer] Work Phone: [phone] Rh immune globulin screen (Bld) [Interp] Positive [facility] [address] [employer] [employer] Work Phone: [phone] HCG, Beta Quantitativeon HCG.beta subunit Qn 543 m[IU]/mL Abnormal [facility] [address] Work Phone: [phone] Comment on above: .Total HCG measureme nt is performed using the Karoline Zayda AccessImmunoassay which detects intact HCG and free beta HCG subunit. .This test is not indicated for use as a tumor marker.HCG testing is performed using a different test methodology at [facility] than other [facility]. Direct result comparisonshould only be made within [...] threshold 10 - 20 [facility] [address] Work Phone: [phone] Calcium [Mass/Vol] 9.1 mg/dL 8.6 - 10.3 [facility] [address] Work Phone: [phone] Chloride [Moles/Vol] 105 mmol/L 98 - 107 [facility] [address] Work Phone: [phone] CO2 [Moles/Vol] 30 mmol/L 21 - 32 [facility] [address] Work Phone: [phone] Creatinine [Mass/Vol] 0.63 mg/dL See Below [facility] [address] Work Phone: [phone] Comment on above: Reference Range: 0.5 0 - 1.05 Glucose [Mass/Vol] 109 mg/dL above high threshold 74 - 99 [facility] [address] Work Phone: [phone] Potassium [Moles/Vol] 3.4 mmol/L below low threshold 3.5 - 5.3 [facility] [address] Work Phone: [phone] Sodium [Moles/Vol] 138 mmol/L 136 - 145 [facility] [address] Work Phone: [phone] Urea nitrogen [Mass/Vol] 8 mg/dL 6 - 23 [facility] [address] Work Phone: [phone] Laboratory - Hematology and Cell countson 10-18-2022 Erythrocyte distribution width (RBC) [Ratio] 13.1 % See Below [facility] [address] Work Phone: [phone] Comment on above: Reference Range: 11. 5 - 14.5 Hematocrit (Bld) [Volume fraction] 37.7 % See Below [facility] [address] Work Phone: [phone] Comment on above: Reference Range: 36. 0 - 46.0 Hemoglobin (Bld) [Mass/Vol] 12.4 g/dL See Below [facility] [address] Work Phone: [phone] Comment on above: Reference Range: 12. 0 - 16.0 MCHC (RBC) [Mass/Vol] 32.9 g/dL See Below [facility] [address] [employer] Work Phone: [phone] Comment on above: Reference Range: 32. 0 - 36.0 MCV (RBC) [Entitic vol] 87 fL 80 - 100 [facility] [address] [employer] Work Phone: [phone] Platelets (Bld) [#/Vol] 208 10*3/uL 150 - 450 [facility] [address] [employer] Work Phone: [phone] RBC (Bld) [#/Vol] 4.32 {x10E12/L} See Below [facility] [employer] Work Phone: [phone] Comment on above: Reference Range: 4.0 0 - 5.20 WBC (Bld) [#/Vol] 7.1 10*3/uL 4.4 - 11.3 [facility] [address] [employer] Work Phone: [phone] Panel Informationon 10-18 >90 >90 [facility] [employer] Work Phone: [phone] Comment on above: CALCULATIONS OF NILSON MATED GFR ARE PERFORMED USING THE 2020 CKD-EPI STUDY REFIT EQUATION WITHOUT THE RACE VARIABLE FOR THE IDMS-TRACEABLE CREATININE METHODS.https://jasn.asnjournals.org/content//A SN.8271822870 Serum or plasma choriogonado tropin detectionOrdered By: Dr. Us on 10-18-2022 HCG ( test) Ql 391 mIU/mL <4 [facility] Comment on above: hCG levels with Gest ational AgeGestational Age hCG mIU/mL (IU/L)0.2 - 1 week 5 - 501-2 weeks 50 - 5002-3 weeks 100 - 18093-0 weeks 500 - 906901-2 weeks 1000 - 826453-7 weeks 32254 - 100,0006-8 weeks 109[address] - 200,0002-3 months 32641 - 100,000 Office Visit (Primary Care F orms)on 10-17-2022 Follow-up visit Diagnosis/Problems Assessed Anxiety (300.00) [...] 7 weeks 4 days History of Present IllnessShelby returns for medication check. Anxiety: taking Escitalopram 20 mg daily. Doing well on this dose. is about 7 weeks. has appointment with OB next week. Scores and Scales [place] Suicide Severity Rating Scale [id number] 09:24PM (Past Month) Have you wished you [...] Vital Signs Recorded: 17Oct2022 02:44PM Heart Rate84 Omuegjcf01 Inncwoqqk38 Height5 ft 5 in Jucsgt925 lb BMI Fnczpyvfct49.63 kg/m2 BSA Calculated1.68 Tobacco Usea) Yes Physical [...] Oct 17 2022 3:10PM EST (Author) Normal [facility] Tobacco Screening.on 023 Tobacco use status [facility] a) Yes [facility] [employer] Work Phone: Provider Note - ED v3on [...] is swollen and painful. She has tried jfqm-vsl-apiukqh medication without any success. She denies any [...] made to minimize errors. Minor errors in account strategist may be present. Please call if questions.. [...] SIGNS: T PRBP SpO2O2(LPM) %FiO2 Method 23-Aug-2022 13:41:00-36.90724412/72 97 room air, no respiratory support 23-Aug-2022 13:37:00-36.23633443/72 97 room air, no respiratory support DISPOSITION [...] From Triage - ED 23-Aug-2022 13:41 Normal [facility] Risk Screen - Adult Emergenc yon 08-23-2022 [...] Learning Preferencesverbal instruction Cultural Considerationsnone Developmental Considerationsnone Muslim Considerationsnone Other Learnerssignificant other Learning Assessment (Other Learner): Learning Assessment (Other Learner): Other learner availableyes... Learnersignificant other Factors Influencing Readiness to Learnn/a Factors that Impact Ability to Learnnone Devices/Methods Used to Communicatenone Learning Preferencesverbal instruction Cultural Considerationsnone Developmental Considerationsnone Muslim Considerationsnone Pressure Injury/TB/Substance: Pressure Injury: Do you [...] an injured patient at a Trauma Center ([facility], [place]): no Electronic Signatures: Teresa Contreras (RN) (Signed 23-Aug-2022 13:48) Authored: Preferred Language, Patient Preferred Pharmacy, Advanced Directives, Family Violence Adult, Learning Assessment (Patient), Learning Assessment (Other Learner), Pressure Injury/TB/Substance, Pressure Injury, CAGE Last Updated: 23-Aug-2022 13:48 by Teresa Contreras (RN) [facility] Triage - EDon 08-23-2022 Triage - ED Quick Triage: Are You no Have You Given In The Last 6 Weeksno Are You Currently Breastfeedingno Chart Review: PRIMARY ASSESSMENT ABCD Normal Findings: airway open and patent, circulation normal and alert and oriented ARRIVAL INFORMATION Means of Arrival: Ambulatory Mode of Arrival: private vehicle Arrival From: home Accompanied By: self Language: Spoken Language Preferred: Cypriot Reading Language Preferred: Cypriot Present on Arrival: Device Present on Arrival [...] obeys commands Best Verbal Response: (V5) oriented Krebs Score: 15 Allergies: no Last menstrual period: [...] Medical History Reviewedyes Electronic Signatures: Teresa Contreras (DONNELL) (Signed 23-Aug-2022 13:53) Authored: Quick Triage, Risk Screens, Pain, Arrival, ABCD, Travel History, Chart Review, Scores, Past Medical History Last Updated: 23-Aug-2022 13:53 by Teresa Contreras (DONNELL) [facility] HCG, Urine Test on 08-13-2022 HCG ( test) Ql (U) Negative Normal [facility] [employer] Work Phone: [employer] - Office Visiton 07-31 [employer] - Office Visit Diagnoses/Problems Assessed Negative test [...] DAILY. Vitals Vital Signs Recorded: 13Aug2022 02:06PM [id number] Girqdoiqu61 Height5 ft 5 in Fqopxy60.3 kg BMI Njgbytvhwf70.49 kg/m2 BSA Calculated1.67 Tobacco Usea) Yes Patient [...] 2:20PM EST (Author) Normal [facility] Tobacco Screening.on 022 Adult depression screening assessment No [facility] [employer] Work Phone: [phone] Fall risk assessment a) No falls within the last year [facility] [employer] Work Phone: [phone] Tobacco use status CPHS a) Yes [facility] [employer] Work Phone: [phone] Tobacco Screening. Yes [facility] [employer] Work Phone: [phone] IO HCG, Urine Test on 07-11-2022 HCG ( test) Ql (U) Negative [facility] [employer] Work Phone: [phone] [employer] - Office Visiton 06-30 [employer] - Office Visit Diagnoses/Problems Assessed Pelvic pain [...] HAS NO NEW CONCERNS. History of Present Wankppk40-msmm-nal presents for results review. Patient interested in [...] DAILY Vitals Vital Signs Recorded: 11Jul2022 03:18PM Fgevyhpc044 Qknvodbvo52 Height5 ft 5 in Slfbny883 lb 8.64 oz BMI Ewrmkdzscn67.06 kg/m2 BSA Calculated1.63 Physical Exam General: None acute distress Eye: Intraocular movements are intact HEENT: Normocephalic Cardiovascular: Regular rate Respiratory: Respirations are nonlabored Gastrointestinal: Nondistended Musculoskeletal: Normal range of motion Neurologic: Alert and oriented x3 Psychiatric: Cooperative appropriate mood and affect. Results/Data IO HCG, Urine [id number] 03:35PMKeara Mckenzie MEDLINE LOT: [id number] EXP: 09/29/2023 Test NameResultFlagReference IO Urine hCGNegative CT Abdomen and Pelvis with IV [id number] [facility] Ordering Provider: WILLIAM CERDA [id number] Abdomen and Pelvis with Contrast(Report) FINAL REPORT Interpreted by: ISSAC TRAN ELLEN, MD 07/05/22 23:33 Patient Name: DEBI VERDUZCO STUDY: CT ABDOMEN AND PELVIS W IV CONTRAST; 07/05/2022 10:55 pm INDICATION: lower abdominal pain . COMPARISON: 08/30/2020 ACCESSION NUMBER(S): [id number] ORDERING CLINICIAN: WILLIAM Islas (more content not included)... Normal [facility] COMPREHENSIVE PANELon 2021 Albumin [Mass/Vol] 4.5 g/dL Normal 3.4 - 5.0 [facility] Comment on above: Performed By: #### S [facility] #### [place] [address] ALP [Catalytic activity/Vol] 78 U/L Normal 33 - 110 [facility] Comment on above: Performed By: #### S ALIC #### [address] [address] ALT [Catalytic activity/Vol] 17 U/L Normal 7 - 45 [facility] Comment on above: Result Comment: Lynsey ents treated with Sulfasalazine may generate falsely decreased results for ALT. Performed By: #### S ALIC #### [address] [address] Anion gap [Moles/Vol] 10 mmol/L Normal 10 - 20 [facility] Comment on above: Performed By: #### S ALIC #### [address] [address] AST [Catalytic activity/Vol] 16 U/L Normal 9 - 39 [facility] Comment on above: Performed By: #### S ALIC #### [address] [address] Bilirubin [Mass/Vol] 0.3 mg/dL Normal 0.0 - 1.2 [facility] Comment on above: Performed By: #### S ALIC #### [address] [address] Calcium [Mass/Vol] 9.3 mg/dL Normal 8.6 - 10.3 [facility] Comment on above: Performed By: #### S ALIC #### [address] [address] Chloride [Moles/Vol] 104 mmol/L Normal 98 - 107 [facility] Comment on above: Performed By: #### S ALIC #### [address] [address] Creatinine [Mass/Vol] 0.73 mg/dL Normal 0.50 - 1.05 [facility] Comment on above: Performed By: #### S ALIC #### [address] [address] eGFR FEMALE >90 Normal >90 [facility] Comment on above: Result Comment: CALC ULATIONS OF ESTIMATED GFR ARE PERFORMED USING THE 2020 CKD-EPI STUDY REFIT EQUATION WITHOUT THE RACE VARIABLE FOR THE IDMS-TRACEABLE CREATININE METHODS. https://jasn.asnjournals.org/content//ASN.91463 03236 Performed By: #### S ALIC #### [address] [address] Glucose [Mass/Vol] 73 mg/dL Low 74 - 99 [facility] Comment on above: Performed By: #### S ALIC #### [address] [address] HCO3 (Bld) [Moles/Vol] 28 mmol/L Normal 21 - 32 [facility] Comment on above: Performed By: #### S ALIC #### [address] [address] Potassium [Moles/Vol] 3.8 mmol/L Normal 3.5 - 5.3 [facility] Comment on above: Performed By: #### S ALIC #### [address] [address] Protein [Mass/Vol] 6.9 g/dL Normal 6.4 - 8.2 [facility] Comment on above: Performed By: #### S ALIC #### [address] [address] Sodium [Moles/Vol] 138 mmol/L Normal 136 - 145 [facility] Comment on above: Performed By: #### S ALIC #### [address] [address] Urea nitrogen [Mass/Vol] 15 mg/dL Normal 6 - 23 [facility] Comment on above: Performed By: #### S ALIC #### [address] [address] [address] ABDOMEN AND PELVIS W IV C [facility] 07-06-2022 CT ABDOMEN AND PELVIS W IV CONTRAST Patient Name: DEBI VERDUZCO STUDY: CT ABDOMEN AND PELVIS W IV CONTRAST; 07/05/2022 10:55 pm INDICATION: lower abdominal pain . COMPARISON: 08/30/2020 ACCESSION NUMBER(S): [id number] ORDERING CLINICIAN: WILLIAM CERDA TECHNIQUE: Axial CT [...] Electronically signed by: ISSAC TRAN MD Normal [facility] LIPASEon 07-06-2022 Lipase [Catalytic activity/Vol] 32 U/L Normal 9 - 82 [facility] Comment on above: Result Comment: Callie puncture immediately after or during the administration of Metamizole may lead to falsely low results. Testing should be performed immediately prior to Metamizole dosing. P-gtcuku-z-benzoquinone imine (metabolite of Acetaminophen) will generate erroneously low results in samples for patients that have taken toxic doses of acetaminophen. Performed By: #### L IPAS ####[place] [address] UA MICROSCOPICon 07-06-2022 BACTERIA 2+ /HPF Abnormal [facility] Comment on above: Performed By: #### U AMIC #### [address] [address] Mucus Ql (Urine sed) 1+ /LPF Normal [facility] Comment on above: Performed By: #### U AMIC #### [place] [address] RBC 1 /HPF Normal 0-5 [facility] Comment on above: Performed By: #### U AMIC #### [address] [address] SQUAMOUS EPITH. CELLS 10 /HPF Normal [facility] Comment on above: Performed By: #### U AMIC #### [address] [address] WBC 6 /HPF Abnormal 0-5 [facility] Comment on above: Performed By: #### U AMIC #### [address] [address] URINALYSISon 07-06-2022 Appearance (U) HAZY Normal CLEAR [facility] Comment on above: Performed By: #### U A #### [address] [address] Bilirubin Ql (U) Negative Normal NEGATIVE [facility] Comment on above: Performed By: #### U A #### [address] [address] Hemoglobin Ql (U) Negative Normal NEGATIVE [facility] Comment on above: Performed By: #### U A #### [address] [address] Nitrite Ql (U) Negative Normal NEGATIVE [facility] Comment on above: Performed By: #### U A #### [address] [address] Protein Ql (U) Negative Normal NEGATIVE [facility] Comment on above: Performed By: #### U A #### [place] [id number] Specific gravity (U) [Rel density] 1.017 Normal 1.005 - 1.035 [facility] Comment on above: Performed By: #### U A #### [address] [address] Urobilinogen (U) [Mass/Vol] mg/dL Normal 0.0 - 1.9 [facility] Comment on above: Performed By: #### U A #### [address] [address] CBC AND DIFFERENTIALon 07-05 Basophils (Bld) [#/Vol] 0.10 10*3/uL Normal 0.00 - 0.10 [facility] Comment on above: Performed By: #### C BCDF #### [address] [address] Basophils/100 WBC (Bld) 1.0 % Normal 0.0 - 2.0 [facility] Comment on above: Performed By: #### C BCDF #### [address] [address] Eosinophils (Bld) [#/Vol] 0.20 10*3/uL Normal 0.00 - 0.70 [facility] Comment on above: Performed By: #### C BCDF #### [address] [address] Eosinophils/100 WBC (Bld) 2.8 % Normal 0.0 - 6.0 [facility] Comment on above: Performed By: #### C BCDF #### [address] [address] Erythrocyte distribution width (RBC) [Ratio] 12.9 % Normal 11.5 - 14.5 [facility] Comment on above: Performed By: #### C BCDF #### [address] [address] Hematocrit (Bld) [Volume fraction] 38.9 % Normal 36.0 - 46.0 [facility] Comment on above: Performed By: #### C BCDF #### [address] [address] Hemoglobin (Bld) [Mass/Vol] 13.0 g/dL Normal 12.0 - 16.0 [facility] Comment on above: Performed By: #### C BCDF #### [address] [address] Lymphocytes (Bld) [#/Vol] 2.80 10*3/uL Normal 1.20 - 4.80 [facility] Comment on above: Performed By: #### C BCDF #### [address] [address] Lymphocytes/100 WBC (Bld) 36.4 % Normal 13.0 - 44.0 [facility] Comment on above: Performed By: #### C BCDF #### [address] [address] MCHC (RBC) [Mass/Vol] 33.3 g/dL Normal 32.0 - 36.0 [facility] Comment on above: Performed By: #### C BCDF #### [address] [address] MCV (RBC) [Entitic vol] 85 fL Normal 80 - 100 [facility] Comment on above: Performed By: #### C BCDF #### [address] [address] Monocytes (Bld) [#/Vol] 0.70 10*3/uL Normal 0.10 - 1.00 [facility] Comment on above: Performed By: #### C BCDF #### [address] [address] Monocytes/100 WBC (Bld) 9.2 % Normal 2.0 - 10.0 [facility] Comment on above: Performed By: #### C BCDF #### [address] [address] Neutrophils (Bld) [#/Vol] 3.90 10*3/uL Normal 1.20 - 7.70 [facility] Comment on above: Result Comment: Perc ent differential counts (%) should be interpreted in the context of the absolute cell counts (cells/L). Performed By: #### C BCDF #### [address] [address] Neutrophils/100 WBC (Bld) 50.6 % Normal 40.0 - 80.0 [facility] Comment on above: Performed By: #### C BCDF #### [address] [address] Platelets (Bld) [#/Vol] 196 10*3/uL Normal 150 - 450 [facility] Comment on above: Performed By: #### C BCDF #### [address] [address] RBC 4.58 x10E12/L Normal 4.00 - 5.20 [facility] Comment on above: Performed By: #### C BCDF #### [address] [address] WBC (Bld) [#/Vol] 7.7 10*3/uL Normal 4.4 - 11.3 [facility] Comment on above: Performed By: #### C BCDF #### [address] [address] [address] Abdomen and Pelvis with I V Contraston 07-05-2022 CT Abdomen and Pelvis W contrast IV Please click on the link to view the study images Normal [facility] [employer] Work Phone: [phone] CT Abdomen and Pelvis W contrast IV Normal [facility] [address] Work Phone: [phone] Complete Blood Count + Diffe rentialon 07-05-2022 Basophils/100 WBC (Bld) 1.0 % 0.0 - 2.0 [facility] [employer] Work Phone: [phone] Erythrocyte distribution width (RBC) [Ratio] 12.9 % See Below [facility] [employer] Work Phone: [phone] Comment on above: Reference Range: 11. 5 - 14.5 Hematocrit (Bld) [Volume fraction] 38.9 % See Below [facility] [address] Work Phone: [phone] Comment on above: Reference Range: 36. 0 - 46.0 Hemoglobin (Bld) [Mass/Vol] 13.0 g/dL See Below [facility] [address] Work Phone: [phone] Comment on above: Reference Range: 12. 0 - 16.0 Lymphocytes/100 WBC (Bld) 36.4 % See Below [facility] [address] Work Phone: [phone] Comment on above: Reference Range: 13. 0 - 44.0 MCHC (RBC) [Mass/Vol] 33.3 g/dL See Below [facility] [employer] Work Phone: [phone] Comment on above: Reference Range: 32. 0 - 36.0 MCV (RBC) [Entitic vol] 85 fL 80 - 100 [facility] [address] Work Phone: [phone] Monocytes/100 WBC (Bld) 9.2 % 2.0 - 10.0 [facility] [address] Work Phone: [phone] Neutrophils/100 WBC (Bld) 50.6 % See Below [facility] [address] Work Phone: [phone] Comment on above: Reference Range: 40. 0 - 80.0 Platelets (Bld) [#/Vol] 196 10*3/uL 150 - 450 [facility] [address] Work Phone: [phone] RBC (Bld) [#/Vol] 4.58 {x10E12/L} See Below [facility] [address] Work Phone: [phone] Comment on above: Reference Range: 4.0 0 - 5.20 WBC (Bld) [#/Vol] 7.7 10*3/uL 4.4 - 11.3 [facility] [employer] Work Phone: [phone] Complete Blood Count + Differential 0.10 {x10E9/L} See Below [facility] [employer] Work Phone: [phone] Comment on above: Reference Range: 0.0 0 - 0.10 Complete Blood Count + Differential 0.20 {x10E9/L} See Below [facility] [employer] Work Phone: [phone] Comment on above: Reference Range: 0.0 0 - 0.70 Complete Blood Count + Differential 0.70 {x10E9/L} See Below [facility] [employer] Work Phone: [phone] Comment on above: Reference Range: 0.1 0 - 1.00 Complete Blood Count + Differential 2.80 {x10E9/L} See Below [facility] [employer] Work Phone: [phone] Comment on above: Reference Range: 1.2 0 - 4.80 Complete Blood Count + Differential 3.90 {x10E9/L} See Below [facility] [employer] Work Phone: [phone] Comment on above: Reference Range: 1.2 0 - 7.70 Percent differential counts (%) should be interpreted in the context of the absolute cell counts (cells/L). Complete Blood Count + Differential 2.8 % 0.0 - 6.0 [facility] [employer] Work Phone: [phone] HCG,URINEon 07-05-2022 Beta HCG ( test) Ql (U) Negative Normal Negative [facility] Comment on above: Performed By: #### H CGU ####[place] [id number] [place] [address] Laboratory - Chemistry and C hemistry - challengeon 07-05-2022 Albumin BCP dye [Mass/Vol] 4.5 g/dL 3.4 - 5.0 [facility] [employer] Work Phone: [phone] ALP [Catalytic activity/Vol] 78 U/L 33 - 110 [facility] [employer] Work Phone: [phone] ALT With P-5'-P [Catalytic activity/Vol] 17 U/L 7 - 45 [facility] [employer] Work Phone: [phone] Comment on above: Patients treated wit h Sulfasalazine may generate falsely decreased results for ALT. Anion gap [Moles/Vol] 10 mmol/L 10 - 20 [facility] [employer] Work Phone: [phone] AST With P-5'-P [Catalytic activity/Vol] 16 U/L 9 - 39 [facility] [employer] Work Phone: [phone] Bilirubin [Mass/Vol] 0.3 mg/dL 0.0 - 1.2 [facility] [employer] Work Phone: [phone] Calcium [Mass/Vol] 9.3 mg/dL 8.6 - 10.3 [facility] [employer] Work Phone: [phone] Chloride [Moles/Vol] 104 mmol/L 98 - 107 [facility] [address] Work Phone: [phone] CO2 [Moles/Vol] 28 mmol/L 21 - 32 [facility] [address] Work Phone: [phone] Creatinine [Mass/Vol] 0.73 mg/dL See Below [facility] [employer] Work Phone: [phone] Comment on above: Reference Range: 0.5 0 - 1.05 Glucose [Mass/Vol] 73 mg/dL below low threshold 74 - 99 [facility] [address] Work Phone: [phone] Potassium [Moles/Vol] 3.8 mmol/L 3.5 - 5.3 [facility] [employer] Work Phone: [phone] Protein [Mass/Vol] 6.9 g/dL 6.4 - 8.2 [facility] [employer] Work Phone: [phone] Sodium [Moles/Vol] 138 mmol/L 136 - 145 [facility] [employer] Work Phone: [phone] Urea nitrogen [Mass/Vol] 15 mg/dL 6 - 23 [facility] [employer] Work Phone: [phone] Lipase, Serumon 07-05-2022 Lipase [Catalytic activity/Vol] 32 U/L 9 - 82 [facility] [employer] Work Phone: [phone] Comment on above: Venipuncture immedia tely after or during the administration of Metamizole may lead to falsely low results. Testing should be performed immediately prior to Metamizole dosing. M-lsxqyy-r-benzoquinone imine (metabolite of Acetaminophen) will generate erroneously low results in samples for patients that have taken toxic doses of acetaminophen. No Panel Informationon 07-05 >90 >90 [facility] [address] Work Phone: Comment on above: CALCULATIONS OF NILSON MATED GFR ARE PERFORMED USING THE 2020 CKD-EPI STUDY REFIT EQUATION WITHOUT THE RACE VARIABLE FOR THE IDMS-TRACEABLE CREATININE METHODS.https://jasn.asnjournals.org/content//A .5506841811 Provider Note - ED v3on 10-0 Provider [...] that she has been following with her [employer]. Had a transvaginal ultrasound yesterday and does [...] Reference Range: STRAW,YELLOW Appearance, Urine HAZY Specific [place], Urine 1.017 pH, Urine 7.0 Protein, Urine [...] SIGNS: T PRBP SpO2O2(LPM) %FiO2 Method 05-Jul-2022 21:35:[id number]/ (more content not included)... Normal [facility] Risk Screen - Adult Emergenc yon 07-05-2022 [...] Communicatenone Learning Preferencesaudio Cultural Considerationsnone Developmental Considerationsnone Muslim Considerationsnone Learning Assessment (Other Learner): Learning Assessment [...] an injured patient at a Trauma Center ([facility], [place] /[place]): no Electronic Signatures: Jeanette Ferrer (RN) (Signed 05-Jul-2022 21:41) Authored: Preferred Language, Patient Preferred Pharmacy, Advanced Directives, Family Violence Adult, Learning Assessment (Patient), Learning Assessment (Other Learner), Pressure Injury/TB/Substance, Pressure Injury, CAGE Last Updated: 05-Jul-2022 21:41 by Jeanette Ferrer (RN) [facility] Triage - EDon 07-05-2022 Triage - ED [...] BMI (kg/m2): 20.177 Calculated BSA (m2) 1.59 Ferdinand Coma Scale: Best Eye Response: (E4) spontaneous Best Motor Response: (M6) obeys commands Best Verbal Response: (V5) oriented Ferdinand Score: 15 Cough lasting greater than 3 weeks: no Allergies: no Last menstrual period: 04-Apr-2022 [employer] History: control Patient has homicidal thoughts: no [...] History Last Updated: 05-Jul-2022 21:40 by Jeanette Ferrer) Normal [facility] Urinalysison 07-05-2022 Color (U) Yellow Normal STRAW,YELLOW [facility] [employer] Work Phone: Comment on above: Reference Range: STR AW,YELLOW Performed By: #### U A #### [facility] [address] [place] [id number] Glucose Ql (U) Negative Normal NEGATIVE [facility] [address] Work Phone: [phone] Comment on above: Performed By: #### U A #### [address] [address] Ketones Ql (U) Negative Normal NEGATIVE [facility] [address] Work Phone: [phone] Comment on above: Performed By: #### U A #### [address] [address] Leukocyte esterase Test strip Ql (U) MODERATE(2+) Abnormal NEGATIVE [facility] [address] Work Phone: [phone] Comment on above: Performed By: #### U A #### [address] [address] pH (U) 7.0 [pH] Normal 5.0 - 8.0 [facility] [address] Work Phone: [phone] Comment on above: Performed By: #### U A #### [address] [address] Protein (U) [Mass/Vol] Negative NEGATIVE [facility] [address] Work Phone: [phone] RBC (U) [#/Vol] Negative NEGATIVE [facility] [address] Work Phone: [phone] Specific gravity (U) [Rel density] 1.017 1 See Below [facility] [address] Work Phone: [phone] Comment on above: Reference Range: 1.0 05 - 1.035 Urinalysis Negative NEGATIVE [facility] [address] Work Phone: [phone] Urinalysis <2.0 0.0 - 1.9 [facility] [address] Work Phone: [phone] Urinalysis HAZY CLEAR [facility] [address] Work Phone: [phone] Urinalysis, Microscopicon Urinalysis, Microscopic 1+ [facility] [employer] Work Phone: [phone] Urinalysis, Microscopic 2+ Abnormal [facility] [employer] Work Phone: [phone] Urinalysis, Microscopic 10 {/HPF} [facility] [employer] Work Phone: [phone] Urinalysis, Microscopic 1 {/HPF} 0-5 [facility] [employer] Work Phone: [phone] Urinalysis, Microscopic 6 {/HPF} Abnormal 0-5 [facility] [employer] Work Phone: [phone] Urine Teston 07-05 HCG ( test) Ql (U) Negative Negative [facility] [employer] Work Phone: [phone] No Panel Informationon 07-04 Normal [facility] [employer] Work Phone: [phone] GC + CHLAMYDIA BY AMPLIFIED DETECTIONon 06-28-2022 CHLAMYDIA TRACH.,AMPLIFIED Negative Normal Negative [facility] Comment on above: Result Comment: The APTIMA Combo 2 assay is FDA-approved for Chlamydia trachomatis and Neisseria gonorrhoeae testing on female endocervical and vaginal swabs, ThinPrep liquid pap samples, male urine samples and urethral swabs. Performance characteristics for Chlamydia trachomatis and Neisseria gonorrhoeae testing on specific eej-CZA-rlwfnuzx sample types (female urine samples) have been validated by [facility]. This laboratory is certified by CLIA to perform high complexity testing. Samples from all other sites are not validated for this method. Performed By: #### [facility] #### [facility] [address] [place] [address] N.GONORRHEA,AMPLIFIED Negative Normal Negative [facility] Comment on above: Result Comment: The APTIMA Combo 2 assay is FDA-approved for Chlamydia trachomatis and Neisseria gonorrhoeae testing on female endocervical and vaginal swabs, ThinPrep liquid pap samples, male urine samples and urethral swabs. Performance characteristics for Chlamydia trachomatis and Neisseria gonorrhoeae testing on specific axb-PEI-dcaltllh sample types (female urine samples) have been validated by [facility]. This laboratory is certified by CLIA to perform high complexity testing. Samples from all other sites are not validated for this method. Performed By: #### G [facility] #### [facility] [address] [place] [address] GC + CHLAMYDIA BY AMPLIFIED DETECTIONon 06-27-2022 Lab Specimen Source Urine Normal [facility] Comment on above: Performed By: #### [facility] #### [facility] [facility] [address] [place] [address] GC + Chlamydia By Amplified Detectionon 06-27-2022 C. trachomatis rRNA YOEL+probe Ql (Unsp spec) Negative Negative [facility] [employer] Work Phone: Comment on above: The APTIMA Combo 2 a ssay is FDA-approved for Chlamydia trachomatis and Neisseria gonorrhoeae testing on female endocervical and vaginal swabs, ThinPrep liquid pap samples, male urine samples and urethral swabs. Performance characteristics for Chlamydia trachomatis and Neisseria gonorrhoeae testing on specific fna-WTR-tiobxaiy sample types (female urine samples) have been validated by [facility]. This laboratory is certified by CLIA to perform high complexity testing. Samples from all other sites are not validated for this method. N. gonorrhoeae rRNA YOEL+probe Ql (Unsp spec) Negative Negative [facility] [employer] Work Phone: Comment on above: SOURCE: Urine The AP WILL Combo 2 assay is FDA-approved for Chlamydia trachomatis and Neisseria gonorrhoeae testing on female endocervical and vaginal swabs, ThinPrep liquid pap samples, male urine samples and urethral swabs. Performance characteristics for Chlamydia trachomatis and Neisseria gonorrhoeae testing on specific mrx-IIE-dvotfwgj sample types (female urine samples) have been validated by [facility]. This laboratory is certified by CLIA to perform high complexity testing. Samples from all other sites are not validated for this method. 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 History of Present Cbpqxni43-aqeu-nin presents for pain during intimacy. Patient has [...] DAILY Vitals Vital Signs Recorded: 27Jun2022 02:19PM Hlfgosvc810 Mecxlhetq74 Height5 ft 5 in Wdqhmv233 lb (more content not included)... Normal [facility] (Primary Care F orms)on 04-04-2022 Follow-up visit Diagnosis/Problems Assessed Anxiety (300.00) [...] Anxiety; SURJIT = N; Verified Transmission to [facility]; Last Updated By: [employer]; 04/04/2022 3:21:16 PM Patient Discussion/Summary follow up [...] difference in my mood. Scores and Scales [place] Suicide Severity Rating Scale 02Ntx1999 09:24PM (Past Month) Have you wished you [...] 09/21/2019 2:14:11 PM Vitals Vital Signs Recorded: 59Gdj7630 02:56PM Heart Rate85 Qawhanpb95, LUE, Sitting Wxzeddudp40, LUE, Sitting Height5 ft 5 in Kfqmyb825 lb 9 oz BMI Apedakvtsf62.56 kg/m2 BSA Calculated1.58 Tobacco Usea) Yes O2 Oiotcleawx97 Physical Exam Constitutional - Well developed, well [...] Apr 08 2022 6:00PM EST (Author) Normal [facility] Tobacco Screening.on 022 Tobacco use status CPHS a) Yes -[facility] 205 DO Work Phone: [place] Suicide Severity Ra ting Scaleon 03-07-2022 [place] Suicide Severity Rating Scale Yes-Low Risk [facility] Work Phone: [place] Suicide Severity Rating Scale No -[facility] Work Phone: Office Visit (Primary Care F orms)on 03-07-2022 Follow-up visit Diagnosis/Problems Assessed Anxiety (300.00) (F41.9) 03/07/22: GAD7: severe anxiety Start Lexapro 5 mg daily [...] Anxiety; SURJIT = N; Verified Transmission to [facility]; Last Updated By: [employer]; 03/07/2022 3:41:34 PM Adult Psychology Referral Evaluation and Treatment Evaluate AND Treat Status: Hold For - Scheduling Requested for: 07Mar2022 Ordered;For: Anxiety; Ordered By: Radha Cary Performed: Order Comments: Counseling in [place] Due: 05Jun2022 Positive depression screening [place] Suicide Severity Rating Scale; Status:Active; Requested for:07Mar2022; [...] feel like a zombie. History of Present Ddvagtb61 year old female here to establish care. [...] = 3 Total score: 19. severe anxiety. [place] Suicide Severity Rating Scale 26Eco0788 09:24PM (Past Month) Have you wished you [...] cough. Gas (more content not included)... Normal [facility] Tobacco Screening.on 022 Fall risk assessment a) No falls within the last year [facility] Phone: Tobacco use status CP a) Yes [facility] Phone: Cult, Genitalon 01-19-2022 Bacteria identified Aer cx Nom (Genital specimen) [facility] [employer] Work Phone: GC + Chlamydia By Amplified Detectionon 01-19-2022 C. trachomatis rRNA YOEL+probe Ql (Unsp spec) Positive Abnormal Negative [facility] [employer] Work Phone: Comment on above: The APTIMA Combo 2 a ssay is FDA-approved for Chlamydia trachomatis and Neisseria gonorrhoeae testing on female endocervical and vaginal swabs, ThinPrep liquid pap samples, male urine samples and urethral swabs. Performance characteristics for Chlamydia trachomatis and Neisseria gonorrhoeae testing on specific ysl-CMS-iaujavdh sample types (female urine samples) have been validated by [facility]. This laboratory is certified by CLIA to perform high complexity testing. Samples from all other sites are not validated for this method. N. gonorrhoeae rRNA YOEL+probe Ql (Unsp spec) Negative Negative [facility] [employer] Work Phone: [phone] Comment on above: SOURCE: Urine The AP WILL Combo 2 assay is FDA-approved for Chlamydia trachomatis and Neisseria gonorrhoeae testing on female endocervical and vaginal swabs, ThinPrep liquid pap samples, male urine samples and urethral swabs. Performance characteristics for Chlamydia trachomatis and Neisseria gonorrhoeae testing on specific bxl-MKC-prwrjawh sample types (female urine samples) have been validated by [facility]. This laboratory is certified by CLIA to perform high complexity testing. Samples from all other sites are not validated for this method. IO HCG, Urine Test on 01-19-2022 HCG ( test) Ql (U) Negative [facility] [address] [employer] Work Phone: [phone] LMPon 01-19-2022 Last menstrual period start date 10Jan2022 [facility] [employer] Work Phone: [phone] [employer] - Office Visiton 12-30 [employer] - Office Visit Diagnoses/Problems Assessed Abnormal uterine [...] IN 2019. LMP: 01/10/2022 History of Present Igpmzjx68-lcez-pcg presents to discuss painful intimacy as well [...] Anxiety and depression (300.00,311) (F41.9,F32.A) control counseling (.) (Z30.09) Encounter for initial prescription of implantable subdermal contraceptive (V25.02) (Z30.017) Encounter for Nexplanon removal (.43) (Z30.46) Negative test (V72.41) (Z32.02) exam (V24.2) [...] Medications Vitals Vital Signs Recorded: 19Jan2022 01:08PM Ukwsjaag820 Bazqealdv88 Height5 ft 5 in Rmzrxr626 lb BMI Cmadvwvgpw23.64 kg/m2 BSA Calculated1.55 RSC69Jyw5761 Physical Exam General: None acute distress Eye: [...] mood and affect. Results/Data IO HCG, Urine Swke74Lah7426 01:35PMKeara Mckenzie Medline hCG [id number] Exp:04/29/2023 Test NameResultFlagReference IO Urine hCGNegative Signatures Electronically signed by : Keara Mckenzie DO; Jan 19 2022 4:57PM EST (Author) Normal [facility] LMPon 01-16-2022 Last menstrual period start date 90Vml5589 [facility] [employer] Work Phone: [employer] - Office Visiton 12-29 [employer] - Office Visit No report was sent Normal [facility] Cult, Urineon 10-08-2019 Bacteria identified Cx Nom (U) PATIENT: DEBI VERDUZCO LOCATION: [facility] BILL#: [id number] : 89 AGE: SEX: F ORDERED BY: GLENROY MCKENZIE: URINE COLLECTED: 10/08/19 15:39ANTIBIOTICS AT ELEANOR.: RECEIVED : 10/09/19 01:56SITE: Clean Catch/Voided R E S U L T S URINE CULTURE,BACTERIAL FINAL 10/11/19 17:08 ISOLATE1 : Lactobacillus species >100,000 CFU/ML Abnormal [facility] [address] [employer] Work Phone: Metabolic Panelon 09-25-2019 Glucose [Mass/Vol] 85 mg/dL <95 [facility] [address] [employer] Work Phone: [phone] Glucose [Mass/Vol] 165 mg/dL <180 [facility] [employer] Work Phone: [phone] Glucose [Mass/Vol] 128 mg/dL <155 [facility] [employer] Work Phone: [phone] Glucose [Mass/Vol] 101 mg/dL <140 [facility] [employer] Work Phone: [phone] Glucose [Mass/Vol] 78 mg/dL 74 - 99 [facility] [employer] Work Phone: Otheron 09-25-2019 SEE BELOW [facility] [employer] Work Phone: Comment on above: Diagnostics with glu cose loading dose of 100 g. Reference values from [place] [employer]. Diabetes Care 2015;38(Suppl.1):S8-S16. RPRon 05-20-2019 Reagin Ab RPR Ql (S) Non-Reactive Normal Non-Reactive [facility] Comment on above: Performed By: #### 2 [id number] #### JESSICA [address]Hemo [address] [place] [address] C Urineon 05-17-2019 C Urine Final Report: Light growth of Normal skin osvaldo isolated Normal [facility] Comment on above: Performed By: #### 2 [id number] ####JESSICA Microbiology [address] [place] [address] Hep Bs Agon 05-16-2019 Hep Bs Ag Negative Normal Negative [facility] Comment on above: Result Comment: Perf ormed At: CB [facility] [address] [id number] Justa Longoria PhD Ph:[phone] Performed By: #### 2 [id number] ####JESSICA Send Outs [address] [place] [address] ABO/Rh Echoon 05-15-2019 ABO/Rh E Interp... Positive Normal [facility] Comment on above: Performed By: #### 8 [id number] ####JESSICA Blood Bank [address] [address] Antibody Screen Cap...on Screen Interp... Negative Normal [facility] Comment on above: Performed By: #### 8 [id number] ####JESSICA [facility] [address] [address] Auto Diffon 05-15-2019 Basophils (Bld) [#/Vol] 0.0 E3/mcL Normal 0.0-0.2 [facility] Comment on above: Order Comment: Order Added by Discern Expert. Performed By: #### 2 397869 ####JESSICA TtbOscv3393 [place] [address] Basophils/100 WBC (Bld) 0.4 % Normal 0.0-2.0 [facility] Comment on above: Order Comment: Order Added by Discern Expert. Performed By: #### 2 976324 ####JESSICA VshJfly0233 [place] [address] Eos Absolute 0.1 E3/mcL Normal 0.0-0.7 [facility] Comment on above: Order Comment: Order Added by Discern Expert. Performed By: #### 2 [id number] ####JSESICA UbpEldl0306 [place] [address] Eosinophils/100 WBC (Bld) 1.1 % Normal 0.0-11.0 [facility] Comment on above: Order Comment: Order Added by Discern Expert. Performed By: #### 2 [id number] ####JESSICA CrgGtfp0809 [place] [address] Lymphocytes (Bld) [#/Vol] 1.6 E3/mcL Normal 1.2-3.4 [facility] Comment on above: Order Comment: Order Added by Discern Expert. Performed By: #### 2 [id number] ####JESSICA Baio[address] [place] [address] Lymphocytes/100 WBC (Bld) 21.5 % Normal 20.0-55.0 [facility] Comment on above: Order Comment: Order Added by Discern Expert. Performed By: #### 2 [id number] ####JESSICA [address] [place] [address] Blair Absolute 0.7 E3/mcL Normal 0.0-0.7 [facility] Comment on above: Order Comment: Order Added by Discern Expert. Performed By: #### 2 229939 ####JESSICA [address] [place] [address] Monocytes/100 WBC (Bld) 9.0 % Normal 0.0-10.0 [facility] Comment on above: Order Comment: Order Added by Discern Expert. Performed By: #### 2 [id number] ####JESSICA [address] [place] [address] Neutro Absolute 5.0 E3/mcL Normal 1.4-6.5 [facility] Comment on above: Order Comment: Order Added by Discern Expert. Performed By: #### 2 [id number] ####JESSICA [address] [place] [address] Neutro Auto 68.0 % Normal 37.0-75.0 [facility] Comment on above: Order Comment: Order Added by Discern Expert. Performed By: #### 2 553512 ####JESSICA [address] [place] [address] CBC w/ Auto Diffon 9 Erythrocyte distribution width (RBC) [Ratio] 13.1 % Normal 11.5-14.5 [facility] Comment on above: Performed By: #### 2 [id number] ####JESSICA [address] [place] [address] Hematocrit (Bld) [Volume fraction] 41.4 % Normal 36.0-48.0 [facility] Comment on above: Performed By: #### 2 951727 ####JESSICA GonzalezDcmHjxe7750 [place] [address] Hemoglobin (Bld) [Mass/Vol] 14.2 g/dL Normal 12.0-16.0 [facility] Comment on above: Performed By: #### 2 036254 ####JESSICA GonzalezPfvCfpf2521 [place] [address] MCH (RBC) [Entitic mass] 29.7 pg Normal 27.0-31.0 [facility] Comment on above: Performed By: #### 2 980827 ####JESSICA GonzalezTvrVuju4442 [place] [address] MCHC (RBC) [Mass/Vol] 34.3 g/dL Normal 33.0-37.0 [facility] Comment on above: Performed By: #### 2 316755 ####JESSICA GonzalezAigPtwj9427 [place] [address] MCV (RBC) [Entitic vol] 86.6 fL Normal 78.0-100.0 [facility] Comment on above: Performed By: #### 2 943895 ####JESSICA GonzalezLbuUlnb8098 [place] [address] Platelet mean volume (Bld) [Entitic vol] 9.2 fL Normal 7.4-11.0 [facility] Comment on above: Performed By: #### 2 009446 ####JESSICA GonzalezIzgSouc2199 [place] [address] Platelets (Bld) [#/Vol] 192 E3/mcL Normal 130-400 [facility] Comment on above: Performed By: #### 2 220559 ####JESSICA FmuPryv9570 [place] [address] RBC (Bld) [#/Vol] 4.78 E6/mcL Normal 3.90-5.40 [facility] Comment on above: Performed By: #### 2 679155 ####JESSICA JfzGzjk2300 [place] [address] WBC (Bld) [#/Vol] 7.3 E3/mcL Normal 3.6-11.0 [facility] Comment on above: Performed By: #### 2 248749 ####JESSICA PebQhvp2334 [place] [address] Chlamydia GC by PCRon 2018 Chlamydia by PCR. Not Detected Normal Not Detected [facility] Comment on above: Result Comment: Xper t CT/NG Assay performance has not been evaluated in patients less than 14 years of age. Performed By: #### 3 [id number] ####JESSICA Misc Micro SubSection, Gonorrhoeae by PCR Not Detected Normal Not Detected [facility] Comment on above: Result Comment: Xper t CT/NG Assay performance has not been evaluated in patients less than 14 years of age. Performed By: #### 3 [id number] ####JESSICA Misc Micro SubSection, HIV-1/2 Ag/Abon 05-15-2019 HIV Combo Internal Control Line Reactive Normal Reactive [facility] Comment on above: Performed By: #### 6 [id number] ####JESSICA Chemistry Manual Qzoafiquuf9029 [place] [address] HIV-1 & HIV-2 Antibodies Non-Reactive Normal Non-Reactive [facility] Comment on above: Performed By: #### 6 [id number] ####JESSICA Chemistry Manual Omnpbkpqkj0223 [place] [address] HIV-1 p-24 Antigen Non-Reactive Normal Non-Reactive [facility] Comment on above: Performed By: #### 6 [id number] ####JESSICA Chemistry Manual Rgaqadjqex9125 [place] [address] HIV-1/2 Ag/Ab Interp Negative Normal Negative [facility] Comment on above: Performed By: #### 6 [id number] ####JESSICA Chemistry Manual [address] [place] [id number] Rubella IgG Lvlon 05-15-2019 Rubella IgG Lvl 25.3 (POS) Normal [facility] Comment on above: Result Comment: <10I U/ml NON REACTIVE: NOT IMMUNE 10-15 IU/ml RUBELLA SPECIFIC AB PRESENT, EVALUATE FURTHER TO DETERMINE IMMUNE STATUS >15 IU/ml REACTIVE, IMMUNE Performed By: #### 2 [id number] ####JESSICA Aofnjvsx7716 [place] [address] U BhCG Qlton 02-03-2019 HCG.beta subunit Qn Negative Normal Neg [facility] Comment on above: Performed By: #### 2 077518 #### JESSICA Urinalysis Manual Subsection [address] [place] [address] UA Completeon 02-03-2019 Color (U) Yellow Normal Yellow [facility] Comment on above: Performed By: #### 8 [id number] ####JESSICA Urinalysis Automated [address] [place] [id number] Glucose (U) [Mass/Vol] Negative Normal Negative [facility] Comment on above: Performed By: #### 8 [id number] ####JESSICA Urinalysis Automated Gbz[address]jpwbrk9497 [place] [address] Ketones Ql (U) Negative Normal Negative [facility] Comment on above: Performed By: #### 8 [id number] ####JESSICA Urinalysis Automated Ijbgsylkpp3102 [place] [address] RBC (U) [#/Vol] 20-50 Abnormal 0-3 [facility] Comment on above: Performed By: #### 8 [id number] ####JESSICA Urinalysis Automated Ykcpdzkslp5810 [place] [address] UA Blood 2+ Abnormal Negative [facility] Comment on above: Performed By: #### 8 [id number] ####JESSICA Urinalysis Automated Vqscjnckjz9332 [place] [address] UA Bacteria Trace Abnormal None [facility] Comment on above: Performed By: #### 8 [id number] ####JESSICA Urinalysis Automated Zdvpyqnxxq0840 [place] [address] UA Clarity SltCloudy Abnormal Clear [facility] Comment on above: Performed By: #### 8 [id number] ####JESSICA Urinalysis Automated Wjztwxwvbx6247 [place] [address] UA Hyal Cast 3-5 Abnormal 0-2 [facility] Comment on above: Performed By: #### 8 [id number] ####JESSICA Urinalysis Automated Digoudqdbc2896 [place] [address] UA Leuk Est Trace Normal Negative [facility] Comment on above: Performed By: #### 8 [id number] ####JESSICA Urinalysis Automated Intrwrwliz6136 [place] [address] UA Mucous Moderate Abnormal Trace [facility] Comment on above: Performed By: #### 8 [id number] ####JESSICA Urinalysis Automated Mt[address]okqbtm9228 [place] [address] UA Nitrite Negative Normal Negative [facility] Comment on above: Performed By: #### 8 [id number] ####JESSICA Urinalysis Automated Qasiiudlhx7844 [place] [address] UA pH 5.0 Normal 4.6-8.0 [facility] Comment on above: Performed By: #### 8 9463292 ####JESSICA Urinalysis Automated [address] [place] [address] UA Protein Negative Normal Negative [facility] Comment on above: Performed By: #### 8 [id number] ####JESSICA Urinalysis Automated [address] [place] [address] UA Spec Grav 1.028 Normal 1.003-1.030 [facility] Comment on above: Performed By: #### 8 6270729 ####JESSICA Urinalysis Automated Dkbycgvckz2809 [place] [address] UA Squam Epithelial 0-5 Normal 0-5 [facility] Comment on above: Performed By: #### 8 [id number] ####JESSICA Urinalysis Automated [address] [place] [address] UA Urobilinogen Negative Normal [facility] Comment on above: Result Comment: Due to a manufacturing issue, low positive urobilinogen results may be fasely positive. Correlate with urine bilirubin and additional clinical/laboratory findings to assess the risk of hemolytic anemia or liver disease. If clinically indicated, repeat testing with an alternate method is available by contacting the laboratory within 24 hours. Performed By: #### 8 [id number] ####JESSICA Urinalysis Automated [address] [place] [address] UA WBC 5-10 Abnormal 0-5 [facility] Comment on above: Performed By: #### 8 [id number] ####JESSICA Urinalysis Automated [address] [place] [address] Urobilinogen Qn (U) Positive Abnormal Negative [facility] Comment on above: Performed By: #### 8 [id number] ####JESSICA Urinalysis Automated Chahfxruhe0493 [place] [address] XR Knee Complete Lefton 11-28 XR Knee Complete Left Exam Date/Time: 12/16/2018 19:08 EDT Reason for Exam: Pain, Traumatic Report STUDY: XR Knee Complete Left;; 12/16/2018 7:08 pm INDICATION: Pain, Traumatic. COMPARISON: None. ACCESSION NUMBER(S): [id number] ORDERING CLINICIAN: Ramiro Frank FINDINGS: Left knee four views. The osseous structures and soft tissues appear normal. No fracture or dislocation is noted IMPRESSION: Unremarkable left knee FINAL REPORT Dictated: 12/16/2018 7:24 pm David Moreira MD Signed (Electronic Signature): 12/16/2018 7:24 pm Signed by: David Moreira MD Technologist: [facility] C Bloodon 11-23-2018 C Blood Final Report: No jason wth at [facility] Comment on above: Performed By: #### 2 [id number] #### JESSICA Urinalysis Manual [address]section [address] [place] [address] C Urineon 11-20-2018 C Urine Final Report: [...] : <=4 S SXT : <=2/38 [facility] Comment on above: Performed By: #### 2 [id number] #### JESSICA Urinalysis Manual [address] [place] [address] Auto Diffon 11-19-2018 Basophils (Bld) [#/Vol] 0.1 E3/mcL Normal 0.0-0.2 [facility] Comment on above: Order Comment: Order Added by Discern Expert. Performed By: #### 2 023901 #### JESSICA Urinalysis Manual Subsection [facility] [place] [address] Basophils/100 WBC (Bld) 0.6 % Normal 0.0-2.0 [facility] Comment on above: Order Comment: Order Added by Discern Expert. Performed By: #### 2 [id number] #### JESSICA Urinalysis Manual Subsection [facility] [place] [address] Eos Absolute 0.3 E3/mcL Normal 0.0-0.7 [facility] Comment on above: Order Comment: Order Added by Discern Expert. Performed By: #### 2 [id number] #### JESSICA Urinalysis Manual Subsection [address] [place] [address] Eosinophils/100 WBC (Bld) 3.3 % Normal 0.0-11.0 [facility] Comment on above: Order Comment: Order Added by Discern Expert. Performed By: #### 2 960286 #### JESSICA Urinalysis Manual Subsection [address] [place] [address] Lymphocytes (Bld) [#/Vol] 1.9 E3/mcL Normal 1.2-3.4 [facility] Comment on above: Order Comment: Order Added by Discern Expert. Performed By: #### 2 [id number] #### JESSICA Urinalysis Manual Subsection [address] [place] [address] Lymphocytes/100 WBC (Bld) 21.1 % Normal 20.0-55.0 [facility] Comment on above: Order Comment: Order Added by Discern Expert. Performed By: #### 2 959915 #### JESSICA Urinalysis Manual Subsection [address] [place] [address] Blair Absolute 1.0 E3/mcL High 0.0-0.7 [facility] Comment on above: Order Comment: Order Added by Discern Expert. Performed By: #### 2 280475 #### JESSICA Urinalysis Manual Subsection [facility] [place] [address] Monocytes/100 WBC (Bld) 11.3 % High 0.0-10.0 [facility] Comment on above: Order Comment: Order Added by Discern Expert. Performed By: #### 2 715720 #### JESSICA Urinalysis Manual Subsection [address] [place] [address] Neutro Absolute 5.7 E3/mcL Normal 1.4-6.5 [facility] Comment on above: Order Comment: Order Added by Discern Expert. Performed By: #### 2 850499 #### JESSICA Urinalysis Manual Subsection [address] [place] [address] Neutro Auto 63.7 % Normal 37.0-75.0 [facility] Comment on above: Order Comment: Order Added by Discern Expert. Performed By: #### 2 [id number] #### JESSICA Urinalysis Manual Subsection [address] [place] [address] BMPon 11-19-2018 Anion gap [Moles/Vol] 8 mmol/L Low 10-20 [facility] Comment on above: Performed By: #### 2 916616 #### JESSICA Urinalysis Manual Subsection [address] [place] [address] Calcium [Mass/Vol] 8.4 mg/dL Low 8.5-10.7 [facility] Comment on above: Performed By: #### 2 556346 #### JESSICA Urinalysis Manual Subsection [address] [place] [address] Chloride [Moles/Vol] 110 mmol/L High 98-107 [facility] Comment on above: Performed By: #### 2 280609 #### JESSICA Urinalysis Manual Subsection [address] [place] [id number] CO2 [Moles/Vol] 27.0 mmol/L Normal 21.0-32.0 [facility] Comment on above: Performed By: #### 2 [id number] #### JESSICA Urinalysis Manual Subsection [address] [place] [address] 14250 Creatinine [Mass/Vol] 0.7 mg/dL Normal 0.5-1.1 [facility] Comment on above: Performed By: #### 2 [id number] #### JESSICA Urinalysis Manual Subsection [address] [place] [address] 69251 Glucose [Mass/Vol] 80 mg/dL Normal 70-99 [facility] Comment on above: Performed By: #### 2 [id number] #### JESSICA Urinalysis Manual Subsection [address] [place] [address] 70569 Potassium [Moles/Vol] 3.7 mmol/L Normal 3.5-5.3 [facility] Comment on above: Performed By: #### 2 261879 #### JESSICA Urinalysis Manual Subsection [address] [place] [address] 56328 Sodium [Moles/Vol] 141 mmol/L Normal 136-145 [facility] Comment on above: Performed By: #### 2 718130 #### JESSICA Urinalysis Manual Subsection [address] [place] [address] 16611 Urea nitrogen [Mass/Vol] 8 mg/dL Normal 6-23 [facility] Comment on above: Performed By: #### 2 [id number] #### JESSICA Urinalysis Manual Subsection [address] [place] [address] 68509 Urea nitrogen/Creatinine [Mass ratio] 11.4 ratio Normal 5.4-30.0 [facility] Comment on above: Performed By: #### 2 692538 #### JESSICA Urinalysis Manual Subsection [address] [place] [address] 03877 CBC w/ Auto Diffon 9 Erythrocyte distribution width (RBC) [Ratio] 14.1 % Normal 11.5-14.5 [facility] Comment on above: Performed By: #### 2 073701 #### JESSICA Urinalysis Manual Subsection [address] [place] [address] 02263 Hematocrit (Bld) [Volume fraction] 35.9 % Low 36.0-48.0 [facility] Comment on above: Performed By: #### 2 816656 #### JESSICA Urinalysis Manual Subsection [address] [place] [address] 64666 Hemoglobin (Bld) [Mass/Vol] 11.9 g/dL Low 12.0-16.0 [facility] Comment on above: Performed By: #### 2 084399 #### JESSICA Urinalysis Manual Subsection [address] [place] [address] 92580 MCH (RBC) [Entitic mass] 29.0 pg Normal 27.0-31.0 [facility] Comment on above: Performed By: #### 2 948641 #### JESSICA Urinalysis Manual Subsection [address] [place] [address] MCHC (RBC) [Mass/Vol] 33.2 g/dL Normal 33.0-37.0 [facility] Comment on above: Performed By: #### 2 981660 #### JESSICA Urinalysis Manual Subsection [address] [place] [address] MCV (RBC) [Entitic vol] 87.1 fL Normal 78.0-100.0 [facility] Comment on above: Performed By: #### 2 385218 #### JESSICA Urinalysis Manual Subsection [address] [place] [address] Platelet mean volume (Bld) [Entitic vol] 8.8 fL Normal 7.4-11.0 [facility] Comment on above: Performed By: #### 2 594444 #### JESSICA Urinalysis Manual Subsection [address] [place] [address] Platelets (Bld) [#/Vol] 164 E3/mcL Normal 130-400 [facility] Comment on above: Performed By: #### 2 984489 #### JESSICA Urinalysis Manual Subsection [address] [place] [address] RBC (Bld) [#/Vol] 4.12 E6/mcL Normal 3.90-5.40 [facility] Comment on above: Performed By: #### 2 503686 #### JESSICA Urinalysis Manual Subsection [address] [place], [place] [address] WBC (Bld) [#/Vol] 8.9 E3/mcL Normal 3.6-11.0 [facility] Comment on above: Performed By: #### 2 174816 #### JESSICA Urinalysis Manual Subsection [address] [place], [place] [address] eGFRon 11-19-2018 GFR/1.73 sq M predicted among non-blacks MDRD (S/P/Bld) [Vol rate/Area] mL/min/{1.73_m2} Normal [facility] Comment on above: Order Comment: Order added by Alcides Expert. Performed By: #### 2 793262 #### JESSICA Urinalysis Manual Subsection [address] [place] [address] Auto Diffon 11-18-2018 Basophils (Bld) [#/Vol] 0.1 E3/mcL Normal 0.0-0.2 [facility] Comment on above: Order Comment: Order Added by Discern Expert. Performed By: #### 2 037319 #### JESSICA RemHemo [address] [place] [address] Basophils/100 WBC (Bld) 0.3 % Normal 0.0-2.0 [facility] Comment on above: Order Comment: Order Added by Alcides Expert. Performed By: #### 2 603883 #### JESSICA RemHemo [address] [place] [address] Eos Absolute 0.2 E3/mcL Normal 0.0-0.7 [facility] Comment on above: Order Comment: Order Added by Alcides Expert. Performed By: #### 2 186824 #### JESSICA RemHemo [address] [place] [address] 897[address] Eosinophils/100 WBC (Bld) 1.1 % Normal 0.0-11.0 [facility] Comment on above: Order Comment: Order Added by Alcides Expert. Performed By: #### 2 434244 #### JESSICA RemHemo [address] [place] [address] Lymphocytes (Bld) [#/Vol] 1.9 E3/mcL Normal 1.2-3.4 [facility] Comment on above: Order Comment: Order Added by Alcides Expert. Performed By: #### 2 974517 #### JESSICA RemHemo [address] [place] [address] Lymphocytes/100 WBC (Bld) 10.5 % Low 20.0-55.0 [facility] Comment on above: Order Comment: Order Added by Alcides Expert. Performed By: #### 2 641154 #### JESSICA RemHemo [address] [place] [address] Blair Absolute 1.0 E3/mcL High 0.0-0.7 [facility] Comment on above: Order Comment: Order Added by Discern Expert. Performed By: #### 2 253954 #### JESSICA RemHemo [address] [place] [address] Monocytes/100 WBC (Bld) 5.4 % Normal 0.0-10.0 [facility] Comment on above: Order Comment: Order Added by Discern Expert. Performed By: #### 2 010895 #### JESSICA RemHemo [address] [place] [address] Neutro Absolute 15.2 E3/mcL High 1.4-6.5 [facility] Comment on above: Order Comment: Order Added by Discern Expert. Performed By: #### 2 395926 #### JESSICA GonzalezHemo [address] [place] [address] Neutro Auto 82.7 % High 37.0-75.0 [facility] Comment on above: Order Comment: Order Added by Discern Expert. Performed By: #### 2 049708 #### JESSICA RemHemo [address] [place] [address] BMPon 11-18-2018 Anion gap [Moles/Vol] 13 mmol/L Normal 10-20 [facility] Comment on above: Performed By: #### 2 688518 #### JESSICA RemChem [address] [place] [address] Calcium [Mass/Vol] 9.5 mg/dL Normal 8.5-10.7 [facility] Comment on above: Performed By: #### 2 114025 #### JESSICA RemChem [address] [place] [address] Chloride [Moles/Vol] 105 mmol/L Normal 98-107 [facility] Comment on above: Performed By: #### 2 441730 #### JESSICA [employer]Chem [address] [place] [address] CO2 [Moles/Vol] 26.0 mmol/L Normal 21.0-32.0 [facility] Comment on above: Performed By: #### 2 158118 #### JESSICA [employer]Chem [address] [place] [address] Creatinine [Mass/Vol] 0.7 mg/dL Normal 0.5-1.1 [facility] Comment on above: Performed By: #### 2 406947 #### JESSICA [employer] [address] [place] [address] Glucose [Mass/Vol] 87 mg/dL Normal 70-99 [facility] Comment on above: Performed By: #### 2 239581 #### JESSICA [employer] [address] [place] [address] Potassium [Moles/Vol] 3.6 mmol/L Normal 3.5-5.3 [facility] Comment on above: Performed By: #### 2 310998 #### JESSICA [employer] [address] [place] [address] Sodium [Moles/Vol] 140 mmol/L Normal 136-145 [facility] Comment on above: Performed By: #### 2 176362 #### JESSICA [employer] [address] [place] [address] Urea nitrogen [Mass/Vol] 10 mg/dL Normal 6-23 [facility] Comment on above: Performed By: #### 2 156003 #### JESSICA [employer] [address] [place] [address] Urea nitrogen/Creatinine [Mass ratio] 14.3 ratio Normal 5.4-30.0 [facility] Comment on above: Performed By: #### 2 646574 #### JESSICA [employer] [address] [place] [address] 21350 CBC w/ Auto Diffon 9 Erythrocyte distribution width (RBC) [Ratio] 14.5 % Normal 11.5-14.5 [facility] Comment on above: Performed By: #### 2 558375 #### JESSICA RemHemo [address] [place] [address] Hematocrit (Bld) [Volume fraction] 42.1 % Normal 36.0-48.0 [facility] Comment on above: Performed By: #### 2 142686 #### JESSICA RemHemo [address] [place] [address] Hemoglobin (Bld) [Mass/Vol] 14.0 g/dL Normal 12.0-16.0 [facility] Comment on above: Performed By: #### 2 121006 #### JESSICA RemHemo [address] [place] [address] MCH (RBC) [Entitic mass] 28.7 pg Normal 27.0-31.0 [facility] Comment on above: Performed By: #### 2 482223 #### JESSICA GonzalezHemo [address] [place] [address] MCHC (RBC) [Mass/Vol] 33.2 g/dL Normal 33.0-37.0 [facility] Comment on above: Performed By: #### 2 352666 #### JESSICA GonzalezHemo [address] [place] [address] MCV (RBC) [Entitic vol] 86.4 fL Normal 78.0-100.0 [facility] Comment on above: Performed By: #### 2 265517 #### JESSICA GonzalezHemo [address] [place] [address] Platelet mean volume (Bld) [Entitic vol] 8.7 fL Normal 7.4-11.0 [facility] Comment on above: Performed By: #### 2 790158 #### JESSICA GonzalezHemo [facility] [place] [address] Platelets (Bld) [#/Vol] 236 E3/mcL Normal 130-400 [facility] Comment on above: Performed By: #### 2 736693 #### JESSICAEugenie GonzalezHemo [facility] [place] [address] RBC (Bld) [#/Vol] 4.87 E6/mcL Normal 3.90-5.40 [facility] Comment on above: Performed By: #### 2 791452 #### JESSICA GonzalezHemo [address] [place] [address] WBC (Bld) [#/Vol] 18.4 E3/mcL High 3.6-11.0 [facility] Comment on above: Performed By: #### 2 383573 #### JESSICA RemHemo [address] [place] [address] CT Abdomen/Pelvis w/o Contra ston 11-18-2018 CT Abdomen/Pelvis w/o Contrast Exam Date/Time: 11/18/2018 02:24 EST Reason for Exam: Pain Report STUDY: CT Abdomen/Pelvis w/o Contrast; 11/18/2018 2:24 am INDICATION: Pain. Right flank pain/right upper quadrant pain, diagnosed with UTI on 11/13/2018. Periumbilical pain intermittent for 5 days. COMPARISON: CT abdomen and pelvis 11/13/2018. ACCESSION NUMBER(S): [id number] ORDERING CLINICIAN: Isaiah Gamble TECHNIQUE: CT of [...] Signed by: Alpa Beckett DO Technologist: [facility] Fun Panelon 11-18-2018 Albumin [Mass/Vol] 4.4 g/dL Normal 3.4-5.0 [facility] Comment on above: Performed By: #### 2 589554 #### JESSICA LisaTalenz [facility] [place] [address] Albumin/Globulin [Mass ratio] 1.6 {ratio} Normal 1.1-1.9 [facility] Comment on above: Performed By: #### 2 557738 #### JESSICA RemChem [facility] [place] [address] Alk Phos 90 Int._Unit/L Normal 33-110 [facility] Comment on above: Performed By: #### 2 877791 #### JESSICA LisaTalenz [facility] [place] [address] ALT [Catalytic activity/Vol] 13 Int._Unit/L Normal 7-45 [facility] Comment on above: Performed By: #### 2 635819 #### JESSICA LisaTalenz [facility] [place] [address] AST [Catalytic activity/Vol] 15 Int._Unit/L Normal 9-39 [facility] Comment on above: Performed By: #### 2 247064 #### JESSICA RemTalenz [address] [place] [address] Bili Direct 0.04 mg/dL Normal 0.00-0.30 [facility] Comment on above: Performed By: #### 2 818900 #### JESSICA LisaChem [facility] [place] [address] Bili Indirect 0.25 mg/dL Normal [facility] Comment on above: Result Comment: No e stablished ranges available for the indirect bilirubin Performed By: #### 2 598612 #### JESSICA RemChem [address] [place] [address] Bili Total 0.29 mg/dL Normal 0.00-1.20 [facility] Comment on above: Performed By: #### 2 192935 #### JESSICA RemChem [address] [place] [address] Globulin (S) [Mass/Vol] 3.0 g/dL Normal 2.0-4.0 [facility] Comment on above: Performed By: #### 2 979541 #### JESSICA [employer] [address] [place] [address] 82090 Protein [Mass/Vol] 7.2 g/dL Normal 6.4-8.2 [facility] Comment on above: Performed By: #### 2 386454 #### JESSICA RemChem [facility] [place] [address] Lipase Levelon 11-18-2018 Lipase Lvl 18 Int._Unit/L Normal 9-82 [facility] Comment on above: Performed By: #### 2 632111 #### JESSICA RemChem [address] [place] [address] 22228 U BhCG Qlton 11-18-2018 HCG.beta subunit Qn Negative Normal Neg [facility] Comment on above: Performed By: #### 2 541258 #### JESSICA Urinalysis Manual Subsection [address] [place] [address] 79804 UA Completeon 11-18-2018 Color (U) Yellow Normal Yellow [facility] Comment on above: Performed By: #### 2 392963 #### JESSICA Urinalysis Manual Subsection [facility] [place] [address] Glucose (U) [Mass/Vol] Negative Normal Negative [facility] Comment on above: Performed By: #### 2 244665 #### JESSICA Urinalysis Manual Subsection [facility] [place] [address] Ketones Ql (U) Negative Normal Negative [facility] Comment on above: Performed By: #### 2 004243 #### JESSICA Urinalysis Manual Subsection [facility] [place] [address] RBC (U) [#/Vol] 5-10 Abnormal 0-3 [facility] Comment on above: Performed By: #### 2 031847 #### JESSICA Urinalysis Manual Subsection [facility] [place] [address] UA Blood 1+ Abnormal Negative [facility] Comment on above: Performed By: #### 2 437996 #### JESSICA Urinalysis Manual Subsection [facility] [place] [address] UA Bacteria 1+ /HPF Abnormal None [facility] Comment on above: Performed By: #### 2 009963 #### JESSICA Urinalysis Manual Subsection [address] [place] [address] UA Clarity Cloudy Abnormal Clear [facility] Comment on above: Performed By: #### 2 347432 #### JESSICA Urinalysis Manual Subsection [address] [place] [address] UA Leuk Est 3+ Abnormal Negative [facility] Comment on above: Performed By: #### 2 288590 #### JESSICA Urinalysis Manual Subsection [address] [place] [address] UA Mucous Occasional Abnormal Trace [facility] Comment on above: Performed By: #### 2 829021 #### JESSICA Urinalysis Manual Subsection [address] [place] [address] UA Nitrite Negative Normal Negative [facility] Comment on above: Performed By: #### 2 237739 #### JESSICA Urinalysis Manual Subsection [address] [place] [address] UA pH 5.0 Normal 4.6-8.0 [facility] Comment on above: Performed By: #### 2 879021 #### JESSICA Urinalysis Manual Subsection [address] [place] [address] UA Protein 1+ Abnormal Negative [facility] Comment on above: Performed By: #### 2 998882 #### JESSICA Urinalysis Manual Subsection [address] [place] [address] UA Spec Grav 1.014 Normal 1.003-1.030 [facility] Comment on above: Performed By: #### 2 305820 #### JESSICA Urinalysis Manual Subsection [address] [place] [address] UA Squam Epithelial 0-5 Normal 0-5 [facility] Comment on above: Performed By: #### 2 933704 #### JESSICA Urinalysis Manual Subsection [address] [place] [address] UA Urobilinogen Negative Normal [facility] Comment on above: Result Comment: Due to a manufacturing issue, low positive urobilinogen results may be fasely positive. Correlate with urine bilirubin and additional clinical/laboratory findings to assess the risk of hemolytic anemia or liver disease. If clinically indicated, repeat testing with an alternate method is available by contacting the laboratory within 24 hours. Performed By: #### 2 365282 #### JESSICA Urinalysis Manual Subsection [facility] [place] [address] UA WBC >50 Abnormal 0-5 [facility] Comment on above: Performed By: #### 2 956726 #### JESSICA Urinalysis Manual Subsection [facility] [place] [address] UA WBC Clump Occasional Abnormal None [facility] Comment on above: Performed By: #### 2 298608 #### JESSICA Urinalysis Manual Subsection [facility] [place] [address] Urobilinogen Qn (U) Negative Normal Negative [facility] Comment on above: Performed By: #### 2 126286 #### JESSICA Urinalysis Manual Subsection [address] [place] [address] eGFRon 11-18-2018 GFR/1.73 sq M predicted among non-blacks MDRD (S/P/Bld) [Vol rate/Area] mL/min/{1.73_m2} Normal [facility] Comment on above: Order Comment: Order added by Discern Expert. Performed By: #### 1 [id number] #### JESSICA RemChem [address] [place] [address] CT Abdomen/Pelvis w/o Contra ston 11-13-2018 CT Abdomen/Pelvis w/o Contrast Exam Date/Time: 11/13/2018 20:08 EST Reason for Exam: Pain Report STUDY: CT Abdomen/Pelvis w/o Contrast; 11/13/2018 8:08 pm INDICATION: Pain. COMPARISON: None. ACCESSION NUMBER(S): [id number] ORDERING CLINICIAN: Ramiro Frank TECHNIQUE: CT of [...] by: David Montanez MD Technologist: AM Normal [facility] U BhCG Qlton 11-13-2018 HCG.beta subunit Qn Negative Normal Neg [facility] Comment on above: Performed By: #### 2 280267 #### JESSICA Urinalysis Manual Subsection [address] [place] [address] UA Completeon 11-13-2018 Color (U) Yellow Normal Yellow [facility] Comment on above: Performed By: #### 8 [id number] #### JESSICA Urinalysis Automated Subsection [address] [place] [address] Glucose (U) [Mass/Vol] Negative Normal Negative [facility] Comment on above: Performed By: #### 8 [id number] #### JESSICA Urinalysis Automated Subsection [address] [place] [address] Ketones Ql (U) Negative Normal Negative [facility] Comment on above: Performed By: #### 8 1376377 #### JESSICA Urinalysis Automated Subsection [address] [place] [address] RBC (U) [#/Vol] /uL Abnormal 0-3 [facility] Comment on above: Performed By: #### 8 [id number] #### JESSICA Urinalysis Automated Subsection [address] [place] [address] UA Blood 3+ Normal Negative [facility] Comment on above: Performed By: #### 8 [id number] #### JESSICA Urinalysis Automated Subsection [address] [place] [address] UA Bacteria 4+ /HPF Abnormal None [facility] Comment on above: Performed By: #### 8 [id number] #### JESSICA Urinalysis Automated Subsection [facility] [place] [address] UA Clarity Cloudy Abnormal Clear [facility] Comment on above: Performed By: #### 8 [id number] #### JESSICA Urinalysis Automated Subsection [facility] [place] [address] UA Leuk Est 3+ Abnormal Negative [facility] Comment on above: Performed By: #### 8 [id number] #### JESSICA Urinalysis Automated Subsection [facility] [place] [address] UA Mucous Few Abnormal Trace [facility] Comment on above: Performed By: #### 8 [id number] #### JESSICA Urinalysis Automated Subsection [facility] [place] [address] UA Nitrite Positive Abnormal Negative [facility] Comment on above: Performed By: #### 8 [id number] #### JESSICA Urinalysis Automated Subsection [address] [place] [address] 28588 UA pH 6.0 Normal 4.6-8.0 [facility] Comment on above: Performed By: #### 8 [id number] #### JESSICA Urinalysis Automated Subsection [facility] [place] [address] UA Protein 2+ Abnormal Negative [facility] Comment on above: Performed By: #### 8 [id number] #### JESSICA Urinalysis Automated Subsection [facility] [place] [address] UA Spec Grav 1.018 Normal 1.003-1.030 [facility] Comment on above: Performed By: #### 8 [id number] #### JESSICA Urinalysis Automated Subsection [facility] [place] [address] UA Squam Epithelial 0-5 Normal 0-5 [facility] Comment on above: Performed By: #### 8 [id number] #### JESSICA Urinalysis Automated Subsection [facility] [place] [address] UA Urobilinogen Negative Normal [facility] Comment on above: Result Comment: Due to a manufacturing issue, low positive urobilinogen results may be fasely positive. Correlate with urine bilirubin and additional clinical/laboratory findings to assess the risk of hemolytic anemia or liver disease. If clinically indicated, repeat testing with an alternate method is available by contacting the laboratory within 24 hours. Performed By: #### 8 [id number] #### JESSICA Urinalysis Automated Subsection [facility] [place] [address] UA WBC >50 Abnormal 0-5 [facility] Comment on above: Performed By: #### 8 [id number] #### JESSICA Urinalysis Automated Subsection [address] [place] [address] UA WBC Clump Few Abnormal None [facility] Comment on above: Performed By: #### 8 [id number] #### JESSICA Urinalysis Automated Subsection [address] [place] [address] Urobilinogen Qn (U) Negative Normal Negative [facility] Comment on above: Performed By: #### 8 [id number] #### JESSICA Urinalysis Automated Subsection [address] [place], [place] [address] Vital Signs Date Time Vital Sign Value Performing Clinician Facility 08-09-2025 09:05-0500 Body height 165.1 cm Radha HENRYC Work Phone: [facility] 08-09-2025 09:05-0500 Body mass index (BMI) [Ratio] 28.1 kg/m2 Radha Cary NP-C Work Phone: [facility] 08-09-2025 09:05-0500 Body weight 76.79 kg Radha Cary NP-C Work Phone: [facility] 08-09-2025 09:05-0500 Diastolic blood pressure 78 mm[Hg] Radha Cary NP-C Work Phone: [facility] 08-09-2025 09:05-0500 Systolic blood pressure 106 mm[Hg] Radha Cary NP-C Work Phone: [facility] 08-05-2025 13:00-0500 Body mass index (BMI) [Ratio] 27.3 kg/m2 Radha Cary [employer] SCIENTIST-C Work Phone: [facility] 08-05-2025 13:00-0500 Body weight 74.44 kg Radha Cary [employer] SCIENTIST-C Work Phone: [phone] [place] [address] 08-05-2025 13:00-0500 Diastolic blood pressure 72 mm[Hg] Radha Cary [employer] SCIENTIST-C Work Phone: [phone])798-298532 [place] [address] 08-05-2025 13:00-0500 Systolic blood pressure 115 mm[Hg] Radha Cary [employer] APPLICATION[employer] SCIENTIST-C Work Phone: [phone])610-285832 [place] [address] 08-04-2025 13:05-0500 Heart rate 107 /min Radha Cary [employer] SCIENTIST-C Work Phone: [phone])812-902532 [place] [address] 08-04-2025 13:05-0500 SaO2% (BldA) [Mass fraction] 98 % Radha Cary [employer] SCIENTIST-C Work Phone: [phone] [place] [address] 08-04-2025 12:44-0500 Body mass index (BMI) [Ratio] 27.3 kg/m2 Radha Cary [employer] SCIENTIST-C Work Phone: [facility] 08-04-2025 12:44-0500 Body weight 74.38 kg Radha Cary [employer] APPLICATION[employer] SCIENTIST-C Work Phone: 6(753)596-421230 [place] [address] 08-04-2025 12:25-0500 Body temperature 97.6 [degF] Radha Cary [employer] SCIENTIST-C Work Phone: 8(424)894-845830 [place] [address] 08-04-2025 12:25-0500 Respiratory rate 14 /min Radha Cary [employer] SCIENTIST-C Work Phone: [phone] [place] [address] 08-04-2025 12:20-0500 Diastolic blood pressure 78 mm[Hg] Radha Cary [employer] APPLICATION[employer] SCIENTIST-C Work Phone: [phone])502-510432 [place] [address] 08-04-2025 12:20-0500 Systolic blood pressure 116 mm[Hg] Radha Cary [employer] SCIENTIST-C Work Phone: [facility] 07-21-2025 09:44-0400 Body mass index (BMI) [Ratio] 26.8 kg/m2 Radha Cary [employer] APPLICATIONS SCIENTIST-C Work Phone: [facility] 07-21-2025 09:44-0400 Body weight 73.05 kg Radha Cary [employer]ODUCT APPLICATIONS SCIENTIST-C Work Phone: 0(700)987-476032 [place] [address] 07-21-2025 09:44-0400 Diastolic blood pressure 72 mm[Hg] Radha Cary [employer]ODUCT APPLICATIONS SCIENTIST-C Work Phone: 3(177)598-299332 [place] [address] 07-21-2025 09:44-0400 Systolic blood pressure 108 mm[Hg] Radha Cary [employer]ODUCT APPLICATIONS SCIENTIST-C Work Phone: 6(626)885-809632 [place] [address] 07-06-2025 09:56-0400 Body height 165.1 cm Radha Cary [employer]ODUCT APPLICATIONS SCIENTIST-C Work Phone: 8(689)279-126032 [place] [address] 07-06-2025 09:56-0400 Body mass index (BMI) [Ratio] 25.9 kg/m2 Radha Cary [employer]ODUCT APPLICATIONS SCIENTIST-C Work Phone: 6(206)127-564032 [place] [address] 07-06-2025 09:56-0400 Body weight 70.84 kg Radha Cary [employer]ODUCT APPLICATIONS SCIENTIST-C Work Phone: 5(250)579-432132 [place] [address] 07-06-2025 09:56-0400 Diastolic blood pressure 73 mm[Hg] Radha Cary [employer]ODUCT APPLICATIONS SCIENTIST-C Work Phone: 8(443)895-030032 [place] [address] 07-06-2025 09:56-0400 Systolic blood pressure 112 mm[Hg] Radha Cary [employer]ODUCT APPLICATIONS SCIENTIST-C Work Phone: 3(008)263-621732 [place] [address] 06-22-2025 12:57-0400 Body height 165.1 cm Radha Cary [employer]ODUCT APPLICATIONS SCIENTIST-C Work Phone: 5(481)948-137432 [place] [address] 06-22-2025 12:57-0400 Body mass index (BMI) [Ratio] 25.2 kg/m2 Radha Cary [employer]ODUCT APPLICATIONS SCIENTIST-C Work Phone: 2(142)847-973132 [place] [address] 06-22-2025 12:57-0400 Body weight 68.97 kg Radha Cary [employer]ODUCT APPLICATIONS SCIENTIST-C Work Phone: 7(342)699-744030 [place] [address] 06-22-2025 12:57-0400 Diastolic blood pressure 72 mm[Hg] Radha Cary PRODUCT APPLICATIONS SCIENTIST-C Work Phone: 3(229)911-394832 [place] [address] 06-22-2025 12:57-0400 Systolic blood pressure 107 mm[Hg] Radha Cary [employer]ODUCT APPLICATIONS SCIENTIST-C Work Phone: 6(403)593-931432 [place] [address] 06-07-2025 13:30-0400 Body height 165.1 cm Radha Cary PRODUCT APPLICATIONS SCIENTIST-C Work Phone: 0(262)580-326032 [place] [address] 06-07-2025 13:27-0400 Body mass index (BMI) [Ratio] 24.5 kg/m2 Radha Cary [employer]ODUCT APPLICATIONS SCIENTIST-C Work Phone: 4(975)684-887232 [place] [address] 06-07-2025 13:27-0400 Body weight 66.93 kg Radha Cary [employer]ODUCT APPLICATIONS SCIENTIST-C Work Phone: 6(943)973-400532 [place] [address] 06-07-2025 13:27-0400 Diastolic blood pressure 73 mm[Hg] Radha Cary [employer]ODUCT APPLICATIONS SCIENTIST-C Work Phone: 9(169)131-060632 [place] [address] 06-07-2025 13:27-0400 Systolic blood pressure 112 mm[Hg] Radha Cary [employer]ODUCT APPLICATIONS SCIENTIST-C Work Phone: 3(147)508-315832 [place] [address] 05-20-2025 13:53-0400 Body height 165.1 cm Radha Cary PRODUCT APPLICATIONS SCIENTIST-C Work Phone: 5(710)271-440632 [place] [address] 05-20-2025 13:53-0400 Body mass index (BMI) [Ratio] 24.1 kg/m2 Radha Cary [employer]ODUCT APPLICATIONS SCIENTIST-C Work Phone: 3(536)701-358132 [place] [address] 05-20-2025 13:53-0400 Body weight 65.85 kg Radha Cary PRODUCT APPLICATIONS SCIENTIST-C Work Phone: 0(518)656-613832 [place] [address] 05-20-2025 13:53-0400 Diastolic blood pressure 72 mm[Hg] Radha Cray [employer]ODUCT APPLICATIONS SCIENTIST-C Work Phone: 5(983)503-283632 [place] [address] 05-20-2025 13:53-0400 Systolic blood pressure 110 mm[Hg] Radha Cary [employer]ODUCT APPLICATIONS SCIENTIST-C Work Phone: [facility] 05-07-2025 18:38-0400 Diastolic blood pressure 55 mm[Hg] Radha Cary [employer]ODUCT APPLICATIONS SCIENTIST-C Work Phone: [facility] 05-07-2025 18:38-0400 Heart rate 70 /min Radha Cary [employer]ODUCT APPLICATIONS SCIENTIST-C Work Phone: [facility] 05-07-2025 18:38-0400 Systolic blood pressure 106 mm[Hg] Radha Cary [employer]ODUCT APPLICATIONS SCIENTIST-C Work Phone: 9(014)657-193230 [place] [address] 05-07-2025 18:29-0400 Body height 165.1 cm Radha Cary PRODUCT APPLICATIONS SCIENTIST-C Work Phone: 4(719)047-991230 [place] [address] 05-07-2025 18:29-0400 Body mass index (BMI) [Ratio] 23.4 kg/m2 Radha Cary PRODUCT APPLICATIONS SCIENTIST-C Work Phone: 7(287)898-184130 [place] [address] 05-07-2025 18:29-0400 Body weight 64 kg Radha Cary PRODUCT APPLICATIONS SCIENTIST-C Work Phone: 9(560)346-210230 [place] [address] 04-23-2025 10:49-0400 Body height 165.1 cm Radha Cary PRODUCT APPLICATIONS SCIENTIST-C Work Phone: 5(267)376-209330 [place] [address] 04-23-2025 10:44-0400 Body mass index (BMI) [Ratio] 23 kg/m2 Radha Cary PRODUCT APPLICATIONS SCIENTIST-C Work Phone: 3(624)860-303130 [place] [address] 04-23-2025 10:44-0400 Body weight 62.82 kg Radah Cary PRODUCT APPLICATIONS SCIENTIST-C Work Phone: 7(096)958-961230 [place] [address] 04-23-2025 10:44-0400 Diastolic blood pressure 73 mm[Hg] Radha Cary PRODUCT APPLICATIONS SCIENTIST-C Work Phone: 2(585)461-327630 [place] [address] 04-23-2025 10:44-0400 Systolic blood pressure 108 mm[Hg] Radha Cary [employer]ODUCT APPLICATIONS SCIENTIST-C Work Phone: 3(563)236-767130 [place] [address] 03-25-2025 13:34-0400 Body height 165.1 cm Radha Cary PRODUCT APPLICATIONS SCIENTIST-C Work Phone: 1(346)118-098832 [place] [address] 03-25-2025 13:34-0400 Body mass index (BMI) [Ratio] 22.4 kg/m2 Radha Cary [employer]ODUCT APPLICATIONS SCIENTIST-C Work Phone: 2(761)540-049332 [place] [address] 03-25-2025 13:34-0400 Body weight 61.23 kg Radha Cary [employer]ODUCT APPLICATIONS SCIENTIST-C Work Phone: 0(169)256-824032 [place] [address] 03-25-2025 13:34-0400 Diastolic blood pressure 60 mm[Hg] Radha Cary [employer]ODUCT APPLICATIONS SCIENTIST-C Work Phone: 7(944)038-175832 [place] [address] 03-25-2025 13:34-0400 Systolic blood pressure 98 mm[Hg] Radha Cary [employer]ODUCT APPLICATIONS SCIENTIST-C Work Phone: 9(198)440-700332 [place] [address] 02-24-2025 13:57-0400 Body height 165.1 cm Radha Cary [employer]ODUCT APPLICATIONS SCIENTIST-C Work Phone: 9(331)227-623732 [place] [address] 02-24-2025 13:57-0400 Body mass index (BMI) [Ratio] 22.8 kg/m2 Radha Cary PRODUCT APPLICATIONS SCIENTIST-C Work Phone: 3(932)875-358732 [place] [address] 02-24-2025 13:57-0400 Body weight 62.14 kg Radha Cary PRODUCT APPLICATIONS SCIENTIST-C Work Phone: 8(198)068-961032 [place] [address] 02-24-2025 13:57-0400 Diastolic blood pressure 62 mm[Hg] Radha Cary PRODUCT APPLICATIONS SCIENTIST-C Work Phone: 8(559)592-567332 [place] [address] 02-24-2025 13:57-0400 Systolic blood pressure 97 mm[Hg] Radha Cary [employer]ODUCT APPLICATIONS SCIENTIST-C Work Phone: 6(689)584-761532 [place] [address] 02-19-2025 14:34-0400 Body mass index (BMI) [Ratio] 22.8 kg/m2 Radha Cary [employer]ODUCT APPLICATIONS SCIENTIST-C Work Phone: 3(921)177-512032 [place] [address] 02-19-2025 14:34-0400 Body weight 62.19 kg Radha Cary PRODUCT APPLICATIONS SCIENTIST-C Work Phone: [facility] 02-19-2025 14:34-0400 Diastolic blood pressure 80 mm[Hg] Radha Cary [employer]ODUCT APPLICATIONS SCIENTIST-C Work Phone: [facility] 02-19-2025 14:34-0400 Systolic blood pressure 120 mm[Hg] Radha Cary [employer]ODUCT APPLICATIONS SCIENTIST-C Work Phone: [facility] 02-01-2025 13:03-0400 Body height 165.1 cm Radha Cary PRODUCT APPLICATIONS SCIENTIST-C Work Phone: [facility] 02-01-2025 13:03-0400 Body mass index (BMI) [Ratio] 22.9 kg/m2 Radha Cary [employer]ODUCT APPLICATIONS SCIENTIST-C Work Phone: [facility] 02-01-2025 13:03-0400 Body weight 62.59 kg Radha Cary PRODUCT APPLICATIONS SCIENTIST-C Work Phone: [facility] 02-01-2025 13:03-0400 Diastolic blood pressure 71 mm[Hg] Radha Cary [employer]ODUCT APPLICATIONS SCIENTIST-C Work Phone: [facility] 02-01-2025 13:03-0400 Systolic blood pressure 109 mm[Hg] Radha Cary [employer]ODUCT APPLICATIONS SCIENTIST-C Work Phone: [facility] 01-31-2025 18:31-0400 Body height 165.1 cm Forrest Mohr MD Work Phone: [facility] 01-31-2025 18:31-0400 Body mass index (BMI) [Ratio] 23.3 kg/m2 Forrest Mohr MD Work Phone: [facility] 01-31-2025 18:31-0400 Body temperature 97.5 [degF] Forrest Mohr MD Work Phone: [facility] 01-31-2025 18:31-0400 Body weight 63.5 kg Forrest Mohr MD Work Phone: [facility] 01-31-2025 18:31-0400 Diastolic blood pressure 65 mm[Hg] Forrest Mohr MD Work Phone: [facility] 01-31-2025 18:31-0400 Heart rate 89 /min Forrest Mohr MD Work Phone: [facility] 01-31-2025 18:31-0400 Respiratory rate 18 /min Forrest Mohr MD Work Phone: [facility] 01-31-2025 18:31-0400 SaO2% (BldA) [Mass fraction] 96 % Forrest Mohr MD Work Phone: [facility] 01-31-2025 18:31-0400 Systolic blood pressure 118 mm[Hg] Forrest Mohr MD Work Phone: [facility] 01-05-2025 08:45-0400 Body mass index (BMI) [Ratio] 22.8 kg/m2 Radha Cary PRODUCT APPLICATIONS SCIENTIST-C Work Phone: [facility] 01-05-2025 08:45-0400 Body weight 62.19 kg Radha Cary [employer]ODUCT APPLICATIONS SCIENTIST-C Work Phone: [facility] 01-05-2025 08:45-0400 Diastolic blood pressure 71 mm[Hg] Radha Cary PRODUCT APPLICATIONS SCIENTIST-C Work Phone: [facility] 01-05-2025 08:45-0400 Systolic blood pressure 103 mm[Hg] Radha Cary PRODUCT APPLICATIONS SCIENTIST-C Work Phone: [facility] 10-30-2024 10:57-0500 Body height 165.1 cm Forrest Mohr MD Work Phone: [facility] 10-30-2024 10:57-0500 Body mass index (BMI) [Ratio] 23.3 kg/m2 Forrest Mohr MD Work Phone: [facility] 10-30-2024 10:57-0500 Body temperature 98.01 [degF] Forrest Mohr MD Work Phone: [facility] 10-30-2024 10:57-0500 Body weight 63.5 kg Forrest Mohr MD Work Phone: [facility] 10-30-2024 10:57-0500 Diastolic blood pressure 79 mm[Hg] Forrest Mohr MD Work Phone: [facility] 10-30-2024 10:57-0500 Heart rate 116 /min Forrest Mohr MD Work Phone: [facility] 10-30-2024 10:57-0500 Respiratory rate 16 /min Forrest Mohr MD Work Phone: [facility] 10-30-2024 10:57-0500 SaO2% (BldA) [Mass fraction] 98 % Forrest Mohr MD Work Phone: [facility] 10-30-2024 10:57-0500 Systolic blood pressure 116 mm[Hg] Forrest Mohr MD Work Phone: [facility] 07-06-2024 13:52-0400 Body height 165.1 cm Jose Delgado MD Work Phone: [facility] 07-06-2024 13:52-0400 Body mass index (BMI) [Ratio] 23.66 kg/m2 Jose Delgado MD Work Phone: [facility] 07-06-2024 13:52-0400 Body weight 64.5 kg Jose Delgado MD Work Phone: [facility] 07-06-2024 13:52-0400 Diastolic blood pressure 62 mm[Hg] Jose Delgado MD Work Phone: [facility] 07-06-2024 13:52-0400 Systolic blood pressure 104 mm[Hg] Jose Delgado MD Work Phone: [facility] 03-05-2024 08:30-0400 Diastolic blood pressure 70 mm[Hg] Forrest oMhr MD Work Phone: [facility] 03-05-2024 08:30-0400 Heart rate 89 /min Forrest Mohr MD Work Phone: [facility] 03-05-2024 08:30-0400 Respiratory rate 16 /min Forrest Mohr MD Work Phone: [facility] 03-05-2024 08:30-0400 SaO2% (BldA) [Mass fraction] 98 % Forrest Mohr MD Work Phone: [facility] 03-05-2024 08:30-0400 Systolic blood pressure 107 mm[Hg] Forrest Mohr MD Work Phone: [facility] 03-05-2024 07:45-0400 Body temperature 98.01 [degF] Forrest Mohr MD Work Phone: [facility] 03-05-2024 07:10-0400 Body height 165.1 cm Forrest Mohr MD Work Phone: [facility] 03-05-2024 07:10-0400 Body mass index (BMI) [Ratio] 23.53 kg/m2 Forrest Mohr MD Work Phone: [facility] 03-05-2024 07:10-0400 Body weight 64.14 kg Forrest Mohr MD Work Phone: [facility] 01-30-2024 15:41-0400 Body height 165.1 cm Forrest Mohr MD Work Phone: [facility] 01-30-2024 15:41-0400 Body mass index (BMI) [Ratio] 23.3 kg/m2 Forrest Mohr MD Work Phone: [facility] 01-30-2024 15:41-0400 Body weight 63.5 kg Forrest Mohr MD Work Phone: [facility] 01-30-2024 15:41-0400 Diastolic blood pressure 66 mm[Hg] Forrest Mohr MD Work Phone: [facility] 01-30-2024 15:41-0400 Heart rate 77 /min Forrest Mohr MD Work Phone: [facility] 01-30-2024 15:41-0400 SaO2% (BldA) [Mass fraction] 98 % Forrest Mohr MD Work Phone: [facility] 01-30-2024 15:41-0400 Systolic blood pressure 102 mm[Hg] Forrest Mohr MD Work Phone: [facility] 01-30-2024 13:00-0400 Diastolic blood pressure 69 mm[Hg] Shae Browningersen DO Work Phone: [facility] 01-30-2024 13:00-0400 Heart rate 70 /min Shae Browningersen DO Work Phone: [facility] 01-30-2024 13:00-0400 Respiratory rate 16 /min Shae Browningersen DO Work Phone: [facility] 01-30-2024 13:00-0400 SaO2% (BldA) [Mass fraction] 100 % Shae Pastor DO Work Phone: [facility] 01-30-2024 13:00-0400 Systolic blood pressure 113 mm[Hg] Shae Browningersen DO Work Phone: [facility] 01-30-2024 10:57-0400 Body height 165.1 cm Shae Browningersen DO Work Phone: [facility] 01-30-2024 10:57-0400 Body mass index (BMI) [Ratio] 23.3 kg/m2 Shae Pastor DO Work Phone: [facility] 01-30-2024 10:57-0400 Body temperature 98.1 [degF] Shae Pastor DO Work Phone: [facility] 01-30-2024 10:57-0400 Body weight 63.5 kg Shae Pastor DO Work Phone: [facility] 10-29-2023 12:56-0500 Body height 165.1 cm Radha Cary SHEET METAL ERECTOR-SCRIPT SUPERVISOR Work Phone: [facility] 10-29-2023 12:56-0500 Body mass index (BMI) [Ratio] 22.86 kg/m2 Radha Cary SHEET METAL ERECTOR-SCRIPT SUPERVISOR Work Phone: 6(915)803-023666 [address] 10-29-2023 12:56-0500 Body weight 62.31 kg Radha Cary SHEET METAL ERECTOR-SCRIPT SUPERVISOR Work Phone: 6(898)826-185661 [place] [address] 10-29-2023 12:56-0500 Diastolic blood pressure 60 mm[Hg] Radha Cary SHEET METAL ERECTOR-SCRIPT SUPERVISOR Work Phone: [facility] 10-29-2023 12:56-0500 Heart rate 72 /min Radha Cary SHEET METAL ERECTOR-SCRIPT SUPERVISOR Work Phone: [facility] 10-29-2023 12:56-0500 Systolic blood pressure 104 mm[Hg] Radha Cary SHEET METAL ERECTOR-SCRIPT SUPERVISOR Work Phone: 5(778)240-301561 [place] [address] 12-27-2022 23:39-0400 Diastolic blood pressure 80 mm[Hg] Radha Cary [facility] 12-27-2022 23:39-0400 Heart rate 87 /min Radha Cary [facility] 12-27-2022 23:39-0400 Respiratory rate 18 /min Radha Cary [facility] 12-27-2022 23:39-0400 SaO2% (BldA) [Mass fraction] 100 % Radha Cary [facility] 12-27-2022 23:39-0400 Systolic blood pressure 112 mm[Hg] Radha Cary [facility] 12-27-2022 18:01-0400 Body temperature 98.06 [degF] Radha Cary [facility] 12-27-2022 18:01-0400 Body weight 60 kg Radhacherie Cary [facility] 11-05-2022 15:34-0500 Body height 165.1 cm Radha Cary Work Phone: [place] [address] [address] Work Phone: 11-05-2022 15:34-0500 Body mass index (BMI) [Ratio] 22.82 kg/m2 Radha Cary Work Phone: [place] [address] [address] Work Phone: 11-05-2022 15:34-0500 Body surface area Derived from formula 1.68 m2 Radha Cary Work Phone: [place] [address] [address] Work Phone: 11-05-2022 15:34-0500 Body weight 62.2 kg Radha Cary Work Phone: [place] [address] [address] Work Phone: 11-05-2022 15:34-0500 Diastolic blood pressure 64 mm[Hg] Radha Cary Work Phone: [place] [address] [address] Work Phone: 11-05-2022 15:34-0500 Systolic blood pressure 102 mm[Hg] Radha Cary Work Phone: [place] [address] [address] Work Phone: 10-23-2022 13:40-0500 Body height 165.1 cm Radha Cary Work Phone: [place] [address] [address] Work Phone: 10-23-2022 13:40-0500 Body mass index (BMI) [Ratio] 22.6 kg/m2 Radha Cary Work Phone: [place] [address] [address] Work Phone: 10-23-2022 13:40-0500 Body surface area Derived from formula 1.68 m2 Radha Cary Work Phone: [place] [address] [address] Work Phone: 10-23-2022 13:40-0500 Body weight 61.6 kg Radha Cary Work Phone: [place] [address] [address] Work Phone: 10-23-2022 13:40-0500 Diastolic blood pressure 62 mm[Hg] Radha Cary Work Phone: [place] [address] [address] Work Phone: 10-23-2022 13:40-0500 Systolic blood pressure 102 mm[Hg] Radha Cary Work Phone: [address] Work Phone: 10-22-2022 00:05-0500 Diastolic blood pressure 59 mm[Hg] Radha Cary [facility] 10-22-2022 00:05-0500 Heart rate 85 /min Radha Cary [facility] 10-22-2022 00:05-0500 Respiratory rate 18 /min Radha Cary [facility] 10-22-2022 00:05-0500 SaO2% (BldA) [Mass fraction] 99 % Radha Cary [facility] 10-22-2022 00:05-0500 Systolic blood pressure 110 mm[Hg] Radha Cary [facility] 10-21-2022 20:25-0500 Body height 165.1 cm Radha Cary [facility] 10-21-2022 20:25-0500 Body temperature 98.6 [degF] Radha Cary [facility] 10-21-2022 20:25-0500 Body weight 61 kg Radha Cary [facility] 10-17-2022 14:44-0500 Body height 165.1 cm Radha Cary Work Phone: [facility] [address] [address] Work Phone: 10-17-2022 14:44-0500 Body mass index (BMI) [Ratio] 22.63 kg/m2 Radha Cary Work Phone: [place] [address] [address] Work Phone: 10-17-2022 14:44-0500 Body surface area Derived from formula 1.68 m2 Radha Cary Work Phone: [place] [address] [address] Work Phone: 10-17-2022 14:44-0500 Body weight 61.69 kg Radha Cary Work Phone: [place] [address] [address] Work Phone: 10-17-2022 14:44-0500 Diastolic blood pressure 60 mm[Hg] Radha Cary Work Phone: [place] [address] [address] Work Phone: 10-17-2022 14:44-0500 Heart rate 84 /min Radha Cary Work Phone: [place] [address] [address] Work Phone: 10-17-2022 14:44-0500 Systolic blood pressure 96 mm[Hg] Radha Cary Work Phone: [place] [address] [address] Work Phone: 08-23-2022 15:41-0500 Body height 165.1 cm Radha Cary [facility] 08-23-2022 15:41-0500 Body temperature 97.7 [degF] Radha Cary [facility] 08-23-2022 15:41-0500 Body weight 61.3 kg Radha Cary [facility] 08-23-2022 15:41-0500 Diastolic blood pressure 72 mm[Hg] Radha Cary [facility] 08-23-2022 15:41-0500 Heart rate 90 /min Radha Cary [facility] 08-23-2022 15:41-0500 Respiratory rate 16 /min Radha Cary [facility] 08-23-2022 15:41-0500 SaO2% (BldA) [Mass fraction] 97 % Radha Cary [facility] 08-23-2022 15:41-0500 Systolic blood pressure 118 mm[Hg] Radhacherie Cary [facility] 08-13-2022 14:06-0500 Body height 165.1 cm Radha Cary Work Phone: [place] [address] [address] Work Phone: 08-13-2022 14:06-0500 Body mass index (BMI) [Ratio] 22.49 kg/m2 Radha Cary Work Phone: [place] [address] [address] Work Phone: 08-13-2022 14:06-0500 Body surface area Derived from formula 1.67 m2 Radha Cary Work Phone: [place] [address] [address] Work Phone: 08-13-2022 14:06-0500 Body weight 61.3 kg Radha Cary Work Phone: [place] [address] [address] Work Phone: 08-13-2022 14:06-0500 Diastolic blood pressure 62 mm[Hg] Radha Cary Work Phone: [place] [address] [address] Work Phone: 08-13-2022 14:06-0500 Systolic blood pressure 104 mm[Hg] Radha Cary Work Phone: [place] [address] [address] Work Phone: 07-11-2022 15:18-0400 Body height 165.1 cm Radha Cary Work Phone: [place] [address] [address] Work Phone: 07-11-2022 15:18-0400 Body mass index (BMI) [Ratio] 21.06 kg/m2 Radha Shirley Cary Work Phone: [employer] Work Phone: 07-11-2022 15:18-0400 Body surface area Derived from formula 1.63 m2 Radha Shirley Cary Work Phone: [employer] Work Phone: 07-11-2022 15:18-0400 Body weight 57.4 kg Radha Cary Work Phone: [employer] Work Phone: 07-11-2022 15:18-0400 Diastolic blood pressure 60 mm[Hg] Radha Shirley Cary Work Phone: [employer] Work Phone: 07-11-2022 15:18-0400 Systolic blood pressure 100 mm[Hg] Radha Shirley Cary Work Phone: [employer] Work Phone: 07-06-2022 01:48-0400 Diastolic blood pressure 77 mm[Hg] Radha Cary [facility] 07-06-2022 01:48-0400 Heart rate 77 /min Radha Cary [facility] 07-06-2022 01:48-0400 Respiratory rate 16 /min Radha Cary [facility] 07-06-2022 01:48-0400 SaO2% (BldA) [Mass fraction] 96 % Radha Cary [facility] 07-06-2022 01:48-0400 Systolic blood pressure 111 mm[Hg] Radha Cary [facility] 07-05-2022 23:35-0400 Body height 165.1 cm Radha Cary [facility] 07-05-2022 23:35-0400 Body temperature 97.34 [degF] Radha Cary [facility] 07-05-2022 23:35-0400 Body weight 55 kg Radha Cray [facility] 06-27-2022 14:19-0400 Body height 165.1 cm Radha Cary Work Phone: [address] Work Phone: 06-27-2022 14:19-0400 Body mass index (BMI) [Ratio] 20.7 kg/m2 Radha Cary Work Phone: [address] Work Phone: 06-27-2022 14:19-0400 Body surface area Derived from formula 1.62 m2 Radha Cary Work Phone: [address] Work Phone: 06-27-2022 14:19-0400 Body weight 56.42 kg Radha Cary Work Phone: [address] Work Phone: 06-27-2022 14:19-0400 Diastolic blood pressure 60 mm[Hg] Radha Cary Work Phone: [address] Work Phone: 06-27-2022 14:19-0400 Systolic blood pressure 100 mm[Hg] Radha Cary Work Phone: [address] Work Phone: 04-04-2022 14:56-0400 Body height 165.1 cm Radha Cary Work Phone: [facility] [address] DO Work Phone: 04-04-2022 14:56-0400 Body mass index (BMI) [Ratio] 19.56 kg/m2 Radha Cary Work Phone: [facility] 205 DO Work Phone: 04-04-2022 14:56-0400 Body surface area Derived from formula 1.58 m2 Radha Cary Work Phone: [place] [address] [address] Work Phone: 04-04-2022 14:56-0400 Body weight 53.33 kg Radha Cary Work Phone: [facility] 205 DO Work Phone: 04-04-2022 14:56-0400 Diastolic blood pressure 58 mm[Hg] Radha Cary Work Phone: [place] [address] [address] Work Phone: 04-04-2022 14:56-0400 Heart rate 85 /min Radha Cary Work Phone: [facility] 205 DO Work Phone: 04-04-2022 14:56-0400 SaO2% (BldA) [Mass fraction] 99 % Radha Cary Work Phone: [place] [address] DO Work Phone: 04-04-2022 14:56-0400 Systolic blood pressure 96 mm[Hg] Radha Cary Work Phone: [place] [address] DO Work Phone: 03-07-2022 15:00-0400 Body height 165.1 cm Radha Cary Work Phone: [facility] Work Phone: 03-07-2022 15:00-0400 Body mass index (BMI) [Ratio] 19.4 kg/m2 Radha Cary Work Phone: [facility] Work Phone: 03-07-2022 15:00-0400 Body surface area Derived from formula 1.57 m2 Radha Cary Work Phone: [facility] Work Phone: 03-07-2022 15:00-0400 Body weight 52.87 kg Radha Cary Work Phone: [facility] Work Phone: 03-07-2022 15:00-0400 Diastolic blood pressure 64 mm[Hg] Radha Cary Work Phone: [facility] Work Phone: 03-07-2022 15:00-0400 Heart rate 94 /min Radha Cary Work Phone: [facility] Work Phone: 03-07-2022 15:00-0400 SaO2% (BldA) [Mass fraction] 98 % Radha Cary Work Phone: [facility] Work Phone: 03-07-2022 15:00-0400 Systolic blood pressure 90 mm[Hg] Radha Cary Work Phone: [facility] [facility] Work Phone: 01-19-2022 13:08-0400 Body height 165.1 cm Valencia L Oberhauser Work Phone: [address] Work Phone: 01-19-2022 13:08-0400 Body mass index (BMI) [Ratio] 18.64 kg/m2 Valencia L Oberhauser Work Phone: [address] Work Phone: 01-19-2022 13:08-0400 Body surface area Derived from formula 1.55 m2 Valencia L Oberhauser Work Phone: [place] [address] [address] Work Phone: 01-19-2022 13:08-0400 Body weight 50.8 kg Valencia L Oberhauser Work Phone: [place] [address] [address] Work Phone: 01-19-2022 13:08-0400 Diastolic blood pressure 62 mm[Hg] Valencia L Oberhauser Work Phone: [place] [address] [address] Work Phone: 01-19-2022 13:08-0400 Systolic blood pressure 100 mm[Hg] Valencia L Oberhauser Work Phone: [place] [address] [address] Work Phone: 01-16-2022 14:11-0400 Body height 165.1 cm Valencia L Oberhauser Work Phone: [place] [address] [address] Work Phone: 01-16-2022 14:11-0400 Body mass index (BMI) [Ratio] 18.56 kg/m2 Valencia L Oberhauser Work Phone: [place] [address] [address] Work Phone: 01-16-2022 14:11-0400 Body surface area Derived from formula 1.54 m2 Valencia L Oberhauser Work Phone: [place] [address] [address] Work Phone: 01-16-2022 14:11-0400 Body weight 50.6 kg Valencia L Oberhauser Work Phone: [place] [address] [address] Work Phone: 01-16-2022 14:11-0400 Diastolic blood pressure 60 mm[Hg] Valencia L Oberhauser Work Phone: [place] [address] [address] Work Phone: 01-16-2022 14:11-0400 Systolic blood pressure 100 mm[Hg] Valencia L Oberhauser Work Phone: Tatiana Baca [address] Work Phone: 10-08-2019 17:28-0500 BMI (Body Mass Index) 25.72 kg/m2 Keara [address] Work Phone: 10-08-2019 17:28-0500 Body weight 70.1 kg Keara cabrera [address] Work Phone: 10-08-2019 17:28-0500 BP Diastolic 70 mm[Hg] Keara cabrera [address] Work Phone: 10-08-2019 17:28-0500 BP Systolic 122 mm[Hg] Keara cabrera [address] Work Phone: 10-08-2019 17:28-0500 BSA (Body Surface Area) 1.77 m2 Keara Baca [address] Work Phone: 10-08-2019 17:28-0500 Height 165.1 cm Keara cabrera [address] Work Phone: 09-21-2019 16:38-0500 BMI (Body Mass Index) 24.84 kg/m2 Keara Baca [address] Work Phone: 09-21-2019 16:38-0500 Body weight 67.7 kg Keara cabrera [address] Work Phone: 09-21-2019 16:38-0500 BP Diastolic 68 mm[Hg] Keara cabrera [address] Work Phone: 09-21-2019 16:38-0500 BP Systolic 120 mm[Hg] Keara cabrera [address] Work Phone: 09-21-2019 16:38-0500 BSA (Body Surface Area) 1.75 m2 Keara ZabalaRosana B[address] Work Phone: 09-21-2019 16:38-0500 Height 165.1 cm Keara Mckenzie [facility] [address] Work Phone: 09-21-2019 16:24-0500 BMI (Body Mass Index) 19.77 kg/m2 Keara Mckenzie [facility] [address] Work Phone: 09-21-2019 16:24-0500 Body weight 53.9 kg Keara Mckenzie [facility] [address] Work Phone: 09-21-2019 16:24-0500 BSA (Body Surface Area) 1.59 m2 Keara Mckenzie [facility] [address] Work Phone: 09-21-2019 16:24-0500 Height 165.1 cm Keara Mckenzie [facility] [address] Work Phone: 04-16-2019 16:21-0400 BMI (Body Mass Index) 20.07 kg/m2 Keara Mckenzie [facility] [address] Work Phone: 04-16-2019 16:21-0400 Body weight 54.7 kg Keara Mckenzie [facility] [address] Work Phone: 04-16-2019 16:21-0400 BP Diastolic 56 mm[Hg] Keara Mckenzie [facility] [address] Work Phone: 04-16-2019 16:21-0400 BP Systolic 98 mm[Hg] Keara Mckenzie [facility] [address] Work Phone: 04-16-2019 16:21-0400 BSA (Body Surface Area) 1.6 m2 Keara Mckenzie [facility] [address] Work Phone: 04-16-2019 16:21-0400 Height 165.1 cm Keara Mckenzie [facility] [address] Work Phone: Encounters Encounter Date Encounter Type Care Provider Facility Start: 08-11-2025 ambulatory Meena Balbuena lity:[facility] Start: 08-09-2025 End: 08-09-2025 ambulatory Mariajose Ayala Facility:[facility] Start: 08-05-2025 ambulatory Meena Us Faci lity:[facility] Start: 08-05-2025 End: 08-05-2025 ambulatory Meena Us Facility:[facility] Start: 08-04-2025 ambulatory Meena Balbuena lity:[facility] Start: 08-04-2025 End: 08-04-2025 ambulatory Meena Us Facility:[facility] Start: 07-21-2025 End: 07-21-2025 Patient encounter procedure Aisha Vitale PRODUCT APPLICATIONS SCIENTIST-C -[facility] Work Phone: Start: 07-21-2025 End: 07-21-2025 ambulatory Aisha Vitale NP Facility:[facility] Start: 07-06-2025 End: 07-06-[address] Colleen Villalobos DO -[facility] Work Phone: Start: 07-06-2025 End: 07-06-2025 ambulatory Radha Cary PRODUCT APPLICATIONS SCIENTIST-C Work Phone: [facility] Start: 06-22-2025 End: 06-22-2025 Patient encounter procedure Mariajose Ayala CNM -[facility] Work Phone: Start: 06-22-2025 End: 06-22-2025 ambulatory Radha Cary PRODUCT APPLICATIONS SCIENTIST-C Work Phone: -[facility] Start: 06-14-2025 End: 06-14-2025 ambulatory RADHA CARY [facility] Start: 06-07-2025 End: 06-07-2025 ambulatory Radha Cary PRODUCT APPLICATIONS SCIENTIST-C Work Phone: -[facility] Start: 06-07-2025 End: 06-07-2025 Patient encounter procedure Aisha Vitale PRODUCT APPLICATIONS SCIENTIST-C -[facility] Work Phone: Start: 06-07-2025 End: 06-07-2025 ambulatory Meena Us Facility:[facility] Start: 05-20-2025 End: 05-20-[address] Meena Us MD -[facility] Work Phone: Start: 05-20-2025 End: 05-20-2025 ambulatory Radha Cary PRODUCT APPLICATIONS SCIENTIST-C Work Phone: -[facility] Start: 05-07-2025 ambulatory Mariajose Ayala Facility :[facility] Start: 05-07-2025 Non-patient / Non-visit Mariajose Trinidad wy CN -[facility] Start: 05-07-2025 End: 05-07-2025 ambulatory Radha Cary PRODUCT APPLICATIONS SCIENTIST-C Work Phone: -[facility] Start: 05-07-2025 End: 05-07-2025 Patient encounter procedure Mariajose Ayala [facility] -[facility] Work Phone: Start: 04-23-2025 End: 04-23-2025 Patient encounter procedure Mariajose Ayala [facility] -[facility] Work Phone: Start: 04-23-2025 End: 04-23-2025 ambulatory Radha Cary PRODUCT APPLICATIONS SCIENTIST-C Work Phone: -[facility] Start: 04-08-2025 End: 04-08-2025 ambulatory COLLEEN ROSALES [facility] Start: 03-25-2025 End: 03-25-2025 Patient encounter procedure Aisha HENRYC -[facility] Work Phone: Start: 03-25-2025 End: 03-25-2025 ambulatory Radha Cary PRODUCT APPLICATIONS SCIENTIST-C Work Phone: [facility] Work Phone: Start: 02-24-2025 End: 02-24-[address] Colleen Villalobos DO -[facility] Work Phone: Start: 02-24-2025 End: 02-24-2025 ambulatory Radha Cary PRODUCT APPLICATIONS SCIENTIST-C Work Phone: [facility] Work Phone: Start: 02-24-2025 End: 02-24-2025 ambulatory Colleen Villalobos Facility:[facility] Start: 02-19-2025 End: 02-19-[address] Colleen Villalobos DO -[facility] Work Phone: Start: 02-19-2025 End: 02-19-2025 ambulatory Colleen Villalobos Facility:[facility] Start: 02-05-2025 ambulatory Mariajose Jamie Facility :[facility] Start: 02-01-2025 End: 02-01-2025 ambulatory Radha Cary PRODUCT APPLICATIONS SCIENTIST-C Work Phone: [facility] Work Phone: Start: 02-01-2025 End: 02-01-2025 Patient encounter procedure Mariajose Ayala CNM -Laboratory, Specimen Work Phone: Start: 02-01-2025 End: 02-01-2025 Patient encounter procedure Mariajose Ayala CNM -[facility] Work Phone: Start: 02-01-2025 End: 02-01-2025 ambulatory Radha Cary Facility:[facility] Start: 02-01-2025 End: 02-01-2025 ambulatory Mariajose Ayala Facility:[facility] Start: 01-31-2025 End: 01-31-2025 Emergency department patient visit FORREST MOHR [facility] Emergency [facility] Comment on above: Morning sickness ( S-HCC) (Primary Dx); Urinary tract infection without hematuria, site unspecified Start: 01-28-2025 End: 01-28-2025 Patient encounter procedure Mariajose Ayala CNM [facility] Work Phone: Start: 01-28-2025 End: 01-28-2025 ambulatory Mariajose Ayala Facility:[facility] Start: 01-22-2025 Non-patient / Non-visit Tamar magaña RN -[facility] Work Phone: Start: 01-22-2025 ambulatory Tamar Chan Facility :[facility] Start: 01-13-2025 End: 01-13-2025 ambulatory [facility] Ambulatory Start: 01-05-2025 End: 01-05-[address] Meena Us MD -[facility] Work Phone: Start: 01-05-2025 End: 01-05-2025 ambulatory Meena Us Facility:[facility] Start: 10-30-2024 End: 10-30-2024 Emergency department patient visit FORREST MOHR [facility] Emergency Medicine Comment on above: Vaginal bleeding (Pr imary Dx) Start: 07-06-2024 End: 07-06-2024 Office outpatient visit 15 minutes Jose Delgado MD Work Phone: [facility] Building Comment on above: Amenorrhea (Primary Dx); test positive ([facility]) Start: 07-06-2024 End: 07-06-2024 ambulatory JOSE oJhnson [facility] Ambulatory Start: 06-30-2024 End: 07-07-2024 Telephone encounter Ana Callaway APRN.CNM Work Phone: OB/Gynecology Comment on above: 07/07 BALTA burroughs Start: 05-02-2024 End: 05-02-2024 Emergency department patient visit FORREST [facility] Start: 03-05-2024 End: 03-05-2024 Subsequent hospital visit by physician Forrest Mohr MD Work Phone: [facility] Comment on above: Colitis Start: 03-05-2024 End: 03-05-2024 ambulatory FORREST M [facility] Start: 01-30-2024 End: 01-30-2024 Office outpatient new 45 minutes Forrest Mohr MD Work Phone: [facility] Comment on above: Colitis (Primary Dx) Start: 01-30-2024 End: 01-30-2024 Emergency department patient visit Shae Pastor DO Work Phone: [facility] Emergency Medicine Comment on above: Colitis (Primary Dx) ; Rectal bleeding; Abdominal pain, generalized; Kidney stone Start: 10-29-2023 End: 10-29-2023 Office outpatient visit 15 minutes Radha Cary SHEET METAL ERECTOR-SCRIPT SUPERVISOR Work Phone: [facility] Comment on above: Generalized anxiety disorder (Primary Dx); Persistent depressive disorder; BMI 22.0-22.9, adult Start: 02-27-2023 ambulatory Radha Cary Facility:[id number] Start: 01-23-2023 End: 01-23-2023 Office outpatient visit 15 minutes Radha Cary SHEET METAL ERECTOR-SCRIPT SUPERVISOR Work Phone: [facility] Comment on above: Generalized anxiety disorder (Primary Dx); Current severe episode of major depressive disorder without psychotic features without prior episode ([facility]); BMI 22.0-22.9, adult Start: 12-27-2022 End: 12-27-2022 Emergency department patient visit Taqueria Frank [facility] Emergency 14 Start: 12-27-2022 Patient encounter status Radha Cary [facility] Start: 11-06-2022 End: 11-06-2022 Emergency department patient visit Stephanie Ferraricharli [facility] Emergency 13 Start: 11-05-2022 ambulatory Radha Cary Facility:[id number] Start: 11-05-2022 Office outpatient vi sit 15 minutes Radha Cary Work Phone: [employer] Work Phone: Start: 10-30-2022 ambulatory Radha Cary Facility:[id number] Start: 10-23-2022 Office outpatient vi sit 15 minutes Radha Cary Work Phone: [employer] Work Phone: Start: 10-23-2022 Patient encounter procedure Jose Delgado [facility] Start: 10-23-[address] Jose Delgado Facility:[id number] Start: 10-21-2022 End: 10-22-2022 Emergency department patient visit Emily Claros [facility] Emergency 03 Start: 10-20-2022 AUDIT Radha Cary Work Phone: [facility] [employer] Work Phone: Start: 10-19-2022 End: 10-19-2022 Emergency department patient visit Stephanie Villa Facility:[id number] Start: 10-18-2022 End: 10-18-2022 ambulatory [facility] Work Phone: Start: 10-18-2022 End: 10-18-2022 Patient encounter procedure [facility]-Laboratory Start: 10-17-2022 ambulatory Radha Cary Facility:[id number] Start: 10-10-2022 ambulatory Radha Cary Facility:[id number] Start: 08-23-2022 End: 08-23-2022 Emergency department patient visit Emily Claros [facility] Emergency 09 Start: 08-13-2022 Office outpatient vi sit 15 minutes Radha Cary Work Phone: [facility] [employer] Work Phone: Start: 08-13-[address] Jose whitehead [facility] Facility:[id number] Start: 08-06-2022 Rx Renewal Radha Cary Work Phone: [facility] Work Phone: Start: 07-11-2022 Office outpatient vi sit 15 minutes Radha Cary Work Phone: [facility] [employer] Work Phone: Start: 07-11-2022 ambulatory Radha Cary Facility:[id number] Start: 07-05-2022 End: 07-06-2022 Emergency department patient visit William Cerda [facility] Emergency 03 Start: 07-05-2022 Chart Update Radha Cary Work Phone: [facility] Work Phone: Start: 07-04-2022 ambulatory SCRIPT SUPERVISOR RADHA CARY Fac ility:[id number] Start: 06-28-2022 Chart Update Radha Cary Work Phone: [address] Work Phone: Start: 06-27-2022 Office outpatient vi sit 15 minutes Radha Cary Work Phone: [address] Work Phone: Start: 06-27-2022 ambulatory [facility] Facility:[id number] Start: 05-03-2022 AUDIT Keara Mckenzie Work Phone: [facility] 205 DO Work Phone: Start: 04-04-2022 Office outpatient vi sit 15 minutes Radha Cary Work Phone: [facility] 205 DO Work Phone: Start: 04-04-2022 Patient encounter procedure Radha Cary Work Phone: [facility] 205 DO Work Phone: Start: 04-04-2022 ambulatory Radha [facility] Facility:[id number] Start: 03-07-2022 Office outpatient ne w 45 minutes Radha Cary Work Phone: [facility] Work Phone: Start: 01-23-2022 Chart Update Valencia Lin user Work Phone: [address] Work Phone: Start: 01-22-2022 AUDIT Valencia Charlesertaylor user Work Phone: [place] [address] [address] Work Phone: Start: 01-19-2022 Office outpatient vi sit 25 minutes Valencia Khanna Work Phone: [place] [address] [address] Work Phone: Start: 01-16-2022 Patient encounter procedure Valencia Rodriguezer Work Phone: [address] Work Phone: Start: 01-08-2020 [facility] [address] Work Phone: Start: 11-19-2019 Patient encounter [facility] [address] Work Phone: Start: 11-12-2019 Patient encounter procedure Keara Mckenzie [facility] [address] Work Phone: Start: 11-05-2019 Patient encounter procedure Keara Mckenzie [facility] [address] Work Phone: Start: 10-29-2019 Patient encounter procedure Keara Mckenzie [facility] [address] Work Phone: Start: 10-22-2019 Patient encounter procedure Keara Mckenzie [place] [address] [address] Work Phone: Start: 10-08-2019 Patient encounter procedure Keara Mckenzie [facility] [address] Work Phone: Start: 09-21-2019 Patient encounter procedure Keara Mckenzie [facility] [address] Work Phone: Menarche Valencia Surinder Jennifer car Work Phone: [place] [address] [address] Work Phone: Comment on above: AGE 11; Procedures Date Procedure Procedure Detail Performing Clinician Start: 08-04-2025 Measurement of pH in vaginal fluid specimen using nitrazine yellow for detection of rupture of amniotic membrane Radha Cary NP-C Work Phone: Comment on above: Amniotic fluid not p resent indicates No Rupture of FetalMembranes at time of specimen collection. Start: 08-04-2025 Urnls dip stick/tabl et reagent auto microscopy Radha Cary NP-C Work Phone: Start: 06-07-2025 Serologic test for syphilis Radha Cary NP-C Work Phone: Start: 05-07-2025 Measurement of pH in vaginal fluid specimen using nitrazine yellow for detection of rupture of amniotic membrane Radha Cary -C Work Phone: Comment on above: Amniotic fluid not p resent indicates No Rupture of FetalMembranes at time of specimen collection. Start: 02-24-2025 Hepatitis C antibody measurement Radha Cary PRODUCT APPLICATIONS SCIENTIST-C Work Phone: Comment on above: Reactive: Presumptiv e evidence of antibodies to HCV. Follow CDC recommendations for supplemental testing.Non-Reactive: Antibodies to HCV were not detected; does not exclude the possibility of exposure to HCVReactive Results are presumptive evidence of antibodies to HCV. Follow CDC recommendations for supplemental testing.Order confirmation testing: HCV Quant by PCR testing - HCVPCR lc#[id number] Non Reactive: < 0.8 Equivocal: >/= 0.8 to < 1.0 Reactive: >/= 1.0The [facility] requires that a reactive/equivocal HCV antibody result be sent out for confirmation. HCV Quant by PCR testing. Start: 02-24-2025 Procedure Radha cruz -C Work Phone: Start: 02-24-2025 Rubella IgG measurement Radha Cary -C Work Phone: Comment on above: Antibody Result: Int erpretationNon-Reactive: Non- ImmuneReactive: ImmuneThe following results were obtained with the [employer] Rubella IgG assay. Results from assays of other manufacturers cannot be used interchangeably. Start: 02-24-2025 Serologic test for syphilis Radha Cary -C Work Phone: Start: 02-01-2025 Liquid based cervica l cytology screening Radha Cary PRODUCT APPLICATIONS SCIENTIST-C Work Phone: Comment on above: NEGATIVE FOR INTRAEP ITHELIAL LESION OR MALIGNANCY. This liquid based Th inPrep(R) pap test was screened withthe use of an image guided system. The HPV DNA reflex c riteria were not met with this specimenresult therefore, no HPV testing was performed.Performed at: [address] [id number] Director: Liv Meier MD, Phone: [phone] Start: 02-01-2025 Urine culture Radha Walltodd zuniga -C Work Phone: Start: 02-01-2025 Microscopic observat ion [Identifier] in Cervix by Cyto stain Forrest Mohr MD Work Phone: Start: 01-31-2025 Urinalysis microscop ic panel - Urine Qualitative by Automated Lorenza Jeter PA-C Work Phone: Start: 01-31-2025 Urnls dip stick/tabl et reagent auto microscopy Lorenza BAUTISTAC Work Phone: Start: 01-31-2025 Comprehensive metabo lic panel Lorenza BAUTISTAC Work Phone: Start: 01-28-2025 Transvaginal obstetr ic ultrasonography Radha Cary PRODUCT APPLICATIONS SCIENTIST-C Work Phone: Start: 10-30-2024 Urine test visual color cmprsn meths Emily Buster TEJEDA-C Work Phone: Start: 10-30-2024 Basic metabolic pane l calcium total Emily TEJEDA-C Work Phone: Start: 07-06-2024 Us preg uterus real time w/image dcmtn transvag Jose Delgado MD Work Phone: Start: 07-06-2024 Urine test visual color cmprsn meths Jose Delgado MD Work Phone: Start: 03-05-2024 Colonoscopy w/biopsy single/multiple Forrest Mohr MD Work Phone: Start: 03-05-2024 Level iv surg pathol ogy gross&microscopic exam Forrest Mohr MD Work Phone: Start: 01-30-2024 Ct abdomen & pelvis w/contrast material Shae Pastor DO Work Phone: Start: 01-30-2024 Urnls dip stick/tabl et rgnt auto w/o microscopy Shae Pastor DO Work Phone: Start: 01-30-2024 Comprehensive metabo lic panel Shae Pastor DO Work Phone: Start: 12-27-2022 End: 12-27-2022 EKG impression Taqueria Frank Start: 11-06-2022 End: 11-06-2022 EKG impression Stephanie Villa Start: 10-21-2022 Antibody screen Stephanie Coronado dec Comment on above: Performed By: #### T +S ####[place] [address] Start: 10-08-2019 Culture bacterial quanttative colony count urine Keara Jonah Start: 09-21-2019 Glucose Tolerance, 3hr PREG K[place]a [place] Tonsillectomy Keara [place] Plan of Treatment Date Care Activity Detail Author Start: 2049 Zoster Vaccines (1 of 2) Zoster Vaccines (1 of 2) [facility] Start: 02-02-2028 Screening for malignant neoplasm of cervix [facility] Start: 08-09-2025 End: 08-09-2025 Patient encounter procedure Anxiety and depression -[facility] Work Phone: Start: 08-05-2025 Patient encounter procedure Registered Clinical -Laboratory Specimen Work Phone: Start: 08-05-2025 Beta-hemolytic Streptococcus culture Group B Streptococcus Culture [facility] Start: 08-05-2025 End: 08-05-2025 Patient encounter procedure Anxiety and depression -[facility] Work Phone: Start: 08-04-2025 Urine culture Urine Culture [facility] Start: 08-04-2025 Non-patient / Non-visit Non-patient / Non-visit -[facility] Start: 08-04-2025 Nonstress test [facility] Start: 08-04-2025 Obstetric monitoring [facility] Start: 08-04-2025 Vital signs measurements [facility] Start: 08-04-2025 [facility] Start: 08-04-2025 End: 08-04-2025 Patient encounter procedure Departed Clinical [facility] Work Phone: Start: 08-04-2025 Patient discharge [facility] Start: 07-08-2025 RSV High Risk: (Elderly (60+) or Population) (1 - Risk 1-dose series) RSV High Risk: (Elderly (60+) or Population) (1 - Risk 1-dose series) [facility] Start: 06-07-2025 Measurement of glucose 2 hours after glucose challenge for glucose tolerance test [facility] Start: 06-07-2025 Serologic test for syphilis [facility] Start: 06-07-2025 End: 06-07-2025 [facility] Start: 05-31-2025 COVID-19 Vaccine () COVID-19 Vaccine () [facility] Start: 05-31-2025 Influenza vaccination [facility] Start: 05-07-2025 Nonstress test [facility] Start: 05-07-2025 Obstetric monitoring [facility] Start: 05-07-2025 Vital signs measurements [facility] Start: 05-07-2025 [facility] Start: 05-07-2025 Patient discharge [facility] Start: 02-24-2025 CBC W Auto Differential panel - Blood [facility] Start: 02-24-2025 Hepatitis C antibody measurement [facility] Start: 02-24-2025 Rubella IgG measurement [facility] Start: 02-24-2025 Serologic test for syphilis [facility] Start: 02-24-2025 [facility] Start: 02-24-2025 Procedure [facility] Start: 02-10-2025 End: 02-10-2025 Patient encounter procedure 02/10/2025 8:20 AM EDT Routine [facility] [address] [place] [address] Lorenza Mauricio MD [address] [place] [id number] [facility] Start: 02-01-2025 Liquid based cervical cytology screening [facility] Start: 07-27-2024 End: 07-27-2024 Patient encounter procedure 07/27/2024 1:15 PM EDT Routine [facility] [address] [place] [address] Jose Delgado MD [address] [facility], [address] [place], [place] [id number] [facility] Start: 07-06-2024 End: 07-06-2024 Professional / ancillary services management 07/06/2024 2:10 PM EDT Ancillary Procedure [facility] [address] [place] [id number] [facility] Start: 05-31-2024 COVID-19 Vaccine ( season) COVID-19 Vaccine ( season) [facility] Start: 05-31-2024 Covid-19 Vaccine ( season) Covid-19 Vaccine () [facility] Start: 05-31-2024 Influenza vaccination [facility] Start: 03-12-2024 End: 03-12-2024 Patient encounter procedure 03/12/2024 2:45 PM EDT Office Visit [facility] [address] [place] [phone] Forrest Mohr MD [address] [place] [address] [facility] Start: 03-01-2024 End: 01-29-2025 Colonoscopy study Colonoscopy Diagnostic Endoscopy Routine Colitis Expected: 03/01/2024 (Approximate), Expires: 01/29/2025 [facility] Service Area Work Phone: Comment on above: Expected: 03/01/2024 (Approximate), Expi res: 01/29/2025 Start: 01-30-2024 End: 01-30-2024 Patient encounter procedure 01/30/2024 3:45 PM EDT Office Visit [facility] [address] [place] [address] Forrest Mohr MD [address] [place] [address] [facility] Start: 01-30-2024 End: 03-01-2024 Clostridioides difficile toxin A+B tcdA+tcdB genes [Presence] in Stool by YOEL with probe detection C. difficile, PCR Microbiology Routine Colitis Expected: 01/30/2024 (Approximate), Expires: 03/01/2024 [facility] Work Phone: Comment on above: Expected: 01/30/2024 (Approximate), Expi res: 03/01/2024 Start: 05-31-2023 COVID-19 Vaccine ( season) COVID-19 Vaccine () [facility] Start: 05-31-2023 Influenza vaccination [facility] Start: 10-30-2022 EPVOB, Provider: Jose Delgado, Status: Pen, Time: 1:00 PM EPVOB, Provider: Jose Delgado, Status: Pen, Time: 1:00 [facility] [employer] Work Phone: Start: 10-23-2022 EPVOBINTL, Provider: Jose Delgado, Status: Pen, Time: 1:45 PM EPVOBINTL, Provider: Jose Delgado, Status: Pen, Time: 1:45 PM [facility] [employer] Work Phone: Start: 10-23-2022 Patient encounter procedure [facility] Start: 23-Oct-2022 13:45 Jose Delgado [facility] Start: 10-03-2022 EPV, Provider: Radha Cary, Status: Pen, Time: 3:00 PM EPV, Provider: Radha Cary, Status: Pen, Time: 3:00 PM [facility] 205 DO Work Phone: Start: 10-03-2022 Patient encounter procedure [facility] Start: 08-13-2022 NEWPROB, Provider: Jose Delgado, Status: Pen, Time: 2:15 PM NEWPROB, Provider: Jose Delgado, Status: Pen, Time: 2:15 PM [facility] Work Phone: Start: 07-11-2022 FUV, Provider: Keara Mckenzie, Status: Pen, Time: 3:15 PM FUV, Provider: Keara Mckenzie, Status: Pen, Time: 3:15 [address] Work Phone: Start: 07-11-2022 Patient encounter procedure [facility] Start: 04-20-2022 FUV, Provider: Keara Mckenzie, Status: Pen, Time: 1:15 PM FUV, Provider: Keara Mckenzie, Status: Pen, Time: 1:15 [address] Work Phone: Start: 04-04-2022 EPV, Provider: Radha Cary, Status: Pen, Time: 3:00 PM EPV, Provider: Radha Cary, Status: Pen, Time: 3:00 PM [facility] Work Phone: Start: 01-19-2022 NEWPROB, Provider: Keara Mckenzie, Status: Pen, Time: 1:00 PM [facility]OB, Provider: Keara Mckenzie, Status: Pen, Time: 1:[address] Work Phone: Start: 2021 DTaP/Tdap/Td Vaccines (1 - Tdap) DTaP/Tdap/Td Vaccines (1 - Tdap) [facility] Start: 2020 Screening for malignant neoplasm of cervix [facility] Start: 2018 Hepatitis B Vaccine (1 of 3 - 19+ 3-dose series) Hepatitis B Vaccine (1 of 3 - 19+ 3-dose series) [facility] Start: 2018 Hepatitis B Vaccines (1 of 3 - 19+ 3-dose series) Hepatitis B Vaccines (1 of 3 - 19+ 3-dose series) [facility] Start: 2018 Pneumococcal Vaccine: Pediatrics and At-Risk Adult Patients (1 of 2 - PCV) Pneumococcal Vaccine: Pediatrics and At-Risk Adult Patients (1 of 2 - PCV) [facility] Start: 2018 Urine microalbumin profile DTaP,Tdap,Td Vaccine (1 - Tdap) [facility] Start: 2017 Anxiety Screening Anxiety Screening [facility] Start: 2017 Depression Screening Depression Screening [facility] Start: 2017 Hepatitis C screening Hepatitis C Screening [facility] Start: 2017 HIV screening HIV Screening [facility] Start: 2014 HPV Vaccine (1 - 3-dose series) HPV Vaccine (1 - 3-dose series) [facility] Start: 2014 HPV Vaccines (1 - 3-dose series) HPV Vaccines (1 - 3-dose series) [facility] Start: 2013 Peds To Adult Transition Annual Assessment Peds To Adult Transition Annual Assessment [facility] Start: 2012 Varicella vaccination Varicella Vaccines (1 of 2 - 13+ 2-dose series) [facility] Start: 2011 Peds To Adult Transition Initial Discussion Peds To Adult Transition Initial Discussion [facility] Start: 2010 HPV Vaccines (1 - 2-dose series) HPV Vaccines (1 - 2-dose series) [facility] Start: 2000 Hepatitis A Vaccines (1 of 2 - Risk 2-dose series) Hepatitis A Vaccines (1 of 2 - Risk 2-dose series) [facility] Start: 2000 MMR Vaccines (1 of 1 - Standard series) MMR Vaccines (1 of 1 - Standard series) [facility] Start: 2000 Varicella vaccination Varicella Vaccines (1 of 2 - 2-dose childhood series) [facility] Start: 1999 COVID-19 Vaccine (#1) COVID-19 Vaccine (#1) [facility] Start: 1999 Hepatitis B Vaccines (1 of 3 - 3-dose series) Hepatitis B Vaccines (1 of 3 - 3-dose series) [facility] Start: 1999 HIV screening HIV Screening [facility] Start: 1999 Lipid panel Lipid Panel [facility] Start: 1999 Yearly Adult Physical Yearly Adult Physical [facility] End: 01-31-2025 Bacteria identified in Urine by Culture [facility] Work Phone: Comment on above: Once (Lab) for 1 Occurrences starting until 01/31/2025 CBC W Auto Different ial panel - Blood [facility] CBC W Auto Different ial panel - Blood [facility] Choriogonadotropin ( test) [Presence] in Serum or Plasma [facility] End: 03-05-2024 Choriogonadotropin ( test) [Presence] in Urine POCT , urine manually resulted Point of Care Testing Routine Once (Lab) for 1 Occurrences starting 03/05/2024 until 03/05/2024 [facility] Work Phone: Comment on above: Once (Lab) for 1 Occurrences starting until 03/05/2024 Erythrocyte mean corpuscular volume determination [facility] End: 01-30-2024 Extra Urine [employer] [facility] Work Phone: Comment on above: Once for 1 Occurrences starting 01/30/20 24 until 01/30/2024 End: 01-31-2025 Extra Urine [employer] [facility] Work Phone: Comment on above: Once for 1 Occurrences starting 02/01/20 25 until 01/31/2025 Hematocrit [Volume Fraction] of Blood [facility] Hemoglobin [Mass/vol ume] in Blood [facility] Hepatitis B virus aguirre rface Ag [Presence] in Serum [facility] Hepatitis C antibody measurement [facility] Leukocytes [#/volume ] in Blood [facility] Mean corpuscular hem oglobin concentration determination [facility] Mean corpuscular hem oglobin determination [facility] Measurement of gluco se 2 hours after glucose challenge for glucose tolerance test [facility] End: 03-05-2024 Moderate Sedation Moderate Sedation Procedures Routine Once for 1 Occurrences starting 03/05/2024 until 03/05/2024 [facility] Work Phone: Comment on above: Once for 1 Occurrences starting 03/05/20 24 until 03/05/2024 Neutrophil count [facility] Neutrophil percent differential count [facility] Patient Education [facility] Work Phone: Platelets [#/volume] in Blood [facility] End: 03-05-2024 Pulse oximetry, continuous Pulse oximetry, continuous Respiratory Care Routine Continuous until discontinued starting 03/05/2024 [facility] Work Phone: Comment on above: Continuous until discontinued starting 0 03/05/2024 End: 03-05-2024 Pulse oximetry, spot Pulse oximetry, spot Respiratory Care Routine Once for 1 Occurrences starting 03/05/2024 until 03/05/2024 [facility] Service Area Work Phone: Comment on above: Once for 1 Occurrences starting 03/05/20 until 03/05/2024 Red blood cell count [facility] Red cell distributio n width determination [facility] Rubella IgG measurement [facility] Serologic test for syphilis [facility] Serologic test for syphilis [facility] Surgical pathology study [facility] Work Phone: Comment on above: Release Upon Ordering for 1 Occurrences starting 03/05/2024 Ultrasound scan for growth [facility] End: 01-30-2024 Urinalysis complete W Reflex Culture panel - Urine [facility] Service Area Work Phone: Comment on above: STAT (Lab) for 1 Occurrences starting until 01/30/2024 End: 01-31-2025 Urinalysis complete W Reflex Culture panel - Urine [facility] Service Area Work Phone: Comment on above: Once (Lab) for 1 Occurrences starting until 01/31/2025 End: 10-30-2024 US Pelvis US pelvis Imaging STAT Once for 1 Occurrences starting 10/30/2024 until 10/30/2024 [facility] Service Area Work Phone: Comment on above: Once for 1 Occurrences starting 01 until 10/30/2024 [facility] Immunizations Immunization Date Immunization Notes Care Provider Fa tamiacindy 07-06-2025 influenza, injectabl e, madin iraj canine kidney, preservative free Radha Cary [employer] Work Phone: [facility] 06-22-2025 tetanus toxoid, redu luz diphtheria toxoid, and acellular pertussis vaccine, adsorbed Radha Cary [employer] Work Phone: [facility] Payers Date Payer Category Payer Self-pay 2023 Medicaid [facility] MEDICAID [facility] COMMUNITY [facility] MEDICAID [facility] [id number] 2023-Present [phone] [address] [place] [address] Medicaid [id number] 2022 Unknown 2022 Medicaid (Managed Care) [facility] [id number] 2022 Private Health Insurance [facility] [id number] 2022-Present [address] [place] [address] [id number]. [id number] 2022 Private Health Insurance [id number] 1999 Unknown [id number] 2.16.840.1.961237.3.579.2. 1069 1999 Unknown [id number] 2.16.840.1.333431.3.579.2. 9 1999 Unknown [id number] 2.16.840.1.819844.3.579.2. 1068 1999 Unknown [id number] 2.16.840.1.071596.3.579.2. 1068 1999 Unknown [id number] 2.16.840.1.495347.3.579.2. 1068 1999 Unknown [id number] 2.16.840.1.958321.3.579.2. 1068 1999 Unknown [id number] 2.16.840.1.519981.3.579.2. 1068 1999 Unknown [id number] 2.16.840.1.856983.3.579.2. 1999 Unknown [id number] 2.840.1.575921.3.579.2. 1999 Unknown [id number] 2.16840.1.109777.3.579.2. 1999 Unknown [id number] 2.16840.1.444981.3.579.2. 1999 Unknown [id number] 2.840.1.208992.3.579.2. 1999 Unknown [id number] 2.840.1.482835.3.579.2. 1999 Unknown [id number] 2.16840.1.343655.3.579.2. 1999 Unknown [id number] 2.16840.1.715601.3.579.2. 1999 Unknown [id number] 2.16840.1.528164.3.579.2. 1999 Unknown [id number] 2.16840.1.504186.3.579.2. 1999 Unknown [id number] 2.16840.1.516736.3.579.2. 356 1999 Unknown [id number] 2.840.1.390836.3.579.2. 1243 1999 Unknown [id number] 2.840.1.090038.3.579.2. 1243 1999 Unknown [id number] 2.840.1.872293.3.579.2. 1243 1999 Unknown [id number] 2.840.1.048338.3.579.2. 1243 1999 Unknown [id number] 2.0.1.452264.3.579.2. 1244 1999 Unknown [id number] 2.840.1.168703.3.579.2. 1244 1999 Unknown [id number] 2.0.1.919240.3.579.2. 479 1999 Unknown [id number] 2.840.1.812695.3.579.2. 479 Medicaid [id number] Private Health Insurance [id number] Unknown [id number] Unknown [id number] Unknown [id number] 2.840.1.657733.3.579.2. 462 Unknown [id number] 2840.1.273641.3.579.2. 462 Unknown [id number] 2.840.1.388544.3.579.2. 462 Unknown [id number] 2.840.1.826662.3.579.2. 462 Unknown [id number] 2.0.1.501559.3.579.2. 462 Unknown [id number] 2.16.840.1.569389.3.579.2. 462 Unknown [id number] 2.16.840.1.317697.3.579.2. 462 Unknown [id number] 2.16.840.1.944101.3.579.2. 462 Unknown [id number] 2.16.840.1.996098.3.579.2. 462 Unknown [id number] 2.840.1.477507.3.579.2. 462 Unknown [id number] 2.840.1.388149.3.579.2. 462 Unknown [id number] 2.840.1.471830.3.579.2. 462 Unknown [id number] 2.840.1.106538.3.579.2. 462 Unknown [id number] 2.840.1.682321.3.579.2. 462 Unknown [id number] .840.1.190164.3.579.2. 462 Unknown [id number] 2.840.1.767271.3.579.2. 462 Unknown [id number] 2.840.1.406905.3.579.2. 462 Unknown [id number] 2.840.1.924117.3.579.2. 462 Unknown [id number] .840.1.269255.3.579.2. 462 Unknown [id number] 2.840.1.326845.3.579.2. 462 Unknown [id number] 2.840.1.864827.3.579.2. 462 Unknown [id number] 2.840.1.474563.3.579.2. 462 Unknown [id number] 2.840.1.475683.3.579.2. 462 Unknown [id number] 2.840.1.036582.3.579.2. 462 Unknown [id number] 2.16.840.1.146748.3.579.2. 462 Social History Date Type Detail Facility Start: 01-23-2023 End: 01-13-2025 Occasional alcohol use Occasional alcohol use [facility] Tobacco smoking consumption unknown [facility] Start: 1999 Sex Assigned At Female [facility] Start: 01-23-2023 Tobacco smoking status NHIS Never smoked tobacco [facility] Work Phone: Start: 01-23-2023 End: 07-06-2024 Tobacco use and exposure Smokeless tobacco non-user [facility] Work Phone: Start: 01-23-2023 End: 01-13-2025 Tobacco use panel [facility] Start: 1999 Sex Assigned At Not on file [facility] Work Phone: Start: 10-29-2023 End: 03-05-2024 Alcohol intake Current drinker of alcohol (finding) [facility] Work Phone: Start: 10-29-2023 Alcohol Comment rare [facility] Work Phone: Start: 10-19-2023 End: 01-31-2025 Exposure to SARS-CoV-2 (event) Not sure [facility] Start: 01-30-2024 Gender identity Identifies as female gender (finding) [facility] Work Phone: Start: 07-06-2024 End: 01-22-2025 Tobacco smoking status NHIS Smokes tobacco daily [facility] Work Phone: Start: 07-06-2024 End: 01-31-2025 Alcoholic beverage intake Ex-drinker (finding) [facility] Work Phone: Start: 07-06-2024 Tobacco Comment I have a vape [facility] Work Phone: Start: 08-24-2022 National Score (1-100), lower number is lower risk 66 [facility] The thought of harming myself has occurred to me Never [facility] Work Phone: Start: 12-10-2024 [facility] Work Phone: NEGATED: Highlighted row - [place] [address] [place] Work Phone: Functional Status Date Assessment Result Facility 01-31-2025 [place] - suicide severity rating scale screener - recent [C-SSRS] [facility] Work Phone: 05-02-2024 Functional status [facility] 05-02-2024 [facility] Work Phone: 03-05-2024 [facility] Work Phone: 03-05-2024 [place] - suicide severity rating scale screener - recent [C-SSRS] [facility] Work Phone: 03-05-2024 Functional status [facility] Work Phone: NEGATED: Highlighted row Functional performance Functional status health issues are not documented Disease [place] [address] [place] Work Phone: Mental Status Date Assessment Result Facility 03-05-2024 Cognitive function finding Negative 03/05/2024 8:30 AM Kellie Viera RN Negative [facility] NEGATED: Highlighted row Cognitive function [Interpretation] Cognitive status health issues are not documented Disease [address] Work Phone: Clinical Notes 06-30-2022 to 07-21-2025 Note Date & Type Note Facility 07-21-2025 Progress note [facility] 07-06-2025 Progress note [facility] 06-22-2025 Progress note [facility] 05-20-2025 [facility] 05-20-2025 Progress note Note Date/Time May 20, 2025 2:14pm [facility] [address], [address] [place] [id number] OFFICE VISIT Date of Service: 05/20/25 MR#: [id number] Acct: [id number] Name: DEBI VERDUZCO Rep #: [id number] : 2000 Provider: Dr. Guanakito Us MD Age/Sex: 25/F Location: [facility] Status: Signed Intake Vital Signs 03/25/25 13:34 05/07/25 18:29 05/20/25 13:53 Height 5 ft 5 in 5 ft 5 in 5 ft 5 in Weight: 145 lb 3 oz BMI 24.1 BP 110/72 Intake Visit Reasons: [address] Freight Required: No Is patient in pain?: No Allergies No Known Allergies Allergy (Verified 05/20/25 13:59) Medications ?Medication ?Instructions ?Recorded ?Confirmed ?Type vits no.130-ferrous fum 1 tab PO QDAY 5 05/20/25 History 27 mg iron-folic acid 800 mcg tablet ( Vitamin) Last Menstrual Period: 11/26/24 Zika: Zika virus screening: Negative : No PFSH PFSH Surgical History S/P tonsillectomy and adenoidectomy Social History adopted: No household members: significant other and children number of children: 1 current occupation: [employer] current occupational exposures/hazards: No pets and animals: [...] physical activity do you participate in: none dania/spiritism: None seatbelt use: never do you feel safe at home: Yes additional social history: Boyfriend: Johny - Works at [employer] History 4 Elective abortions Hx Para 1 Spontaneous abortions 2 Hx # Term Pregnancies 1 Ectopic pregnancies Hx # Pregnancies Multiple births # of living children 1 Past Pregnancies Del. Date Name GA/Weeks Outcome Route Bth Weight Infant Gen Labor Lgth Anesthesia Del Locatn Provider FOB 11/23/19 Isabela 39 live - full term 6lbs 12oz Female epidural Rosana Florenceshua 09/30/21 8 spontaneous 07/08/24 8 spontaneous Delivery Date: 11/23/19 Last Updated by: Tamar Chan RN No complications - Induced d/t discomfort HPI 25 wk ob Details: DEBI VERDUZCO is a 25 year old who presents for routine OB visit. OB Visit [facility] Calculator Estimated Delivery Date Method Current WG Current Estimate 09/02/25 LMP (Certain) 25w 0d Other Estimates 09/02/25 Ultrasound #1 25w 0d 09/02/25 Ultrasound #2 25w 0d Expected Delivery Route/Plan Labor Preferences- CB/BF [...] 9w 4d 138 lb (+0 oz) 109/71 -?-?-?-?-?-?-?-?-?-?-?-?- 186 -?-?-?-?-?-?-?-?-?-?-?-?- [facility]- CRL cons wit h dates. accepts NIPT. had last baby at [facility]-no complications. [facility]- CRL cons with dates. acc epts NIPT. had last baby at [facility]-no compl ications. having significant nausea and vomiting. standing order [...] -?-?-?-?-?-?-?-?-?-?-?-?- Negative 145 20 -?-?-?-?-?-?-?-?-?-?-?-?- KW- no vb/crampi ng. rg fm. discussed previa and follow up US at 28 weeks. 05/20/25 -?-?-?-?-?-?-?-?-?-?-?-?- 25w 0d 145 lb 3 oz (+7 lb 3 oz) 110/72 Negative -?-?-?-?-?-?-?-?-?-?-?-?- Negative 145 25 -?-?-?-?-?-?-?-?-?-?-?-?- SM- no vb lof go od fm no reuglar ctx ACOG First Trimester First Trimester: Desire for [...] and Symptoms of Preeclampsia, Feeding No , [place] Education and Family Medical Leave or Disability [...] Office Urine Glucose Negative Last Edit by Aisha Lira on 05/20/25 14:02 Office Urine Protein Negative Last Edit by Aisha Lira on 05/20/25 14:02 Coding Level of Care Code Off vis,est,level 3 Diagnoses Placenta previa O44.00 History of miscarriage, currently O09.299 Supervision of high risk in second trimester O09.92 Trimester: second trimester 25 weeks gestation of Z3A.25 Weeks of gestation: 25 weeks Anxiety and depression F41.9; F32.A Assessment and Plan Assessment and Plan (1) Placenta previa: Status: Acute Comment: Rpt US 28 wk to recheck cervix; pelvic rest (2) History of miscarriage, currently : Status: Acute Comment: x2 (3) Supervision of high-risk : Status: Acute Qualifiers: Trimester: second trimester Qualified Code(s): O09.92 - Supervision of high risk , unspecified, second trimester Comment: PRR , [facility] 09/02/25,karine crenshaw PC: Nathalie BF: Johny (4) : Status: Acute Qualifiers: Weeks of gestation: 25 weeks Qualified Code(s): Z3A.25 - 25 weeks gestation of Comment: NIPT low risk (5) Anxiety and depression: Status: Acute Comment: was on Lexapro - stopped awhile ago Orders: Orders POC Urinalysis 2 Dip (Clinic) Today CBC W/Diff, Automated Today O09.92 - Supervision of high risk , unspecified, second trimester Glucose Challenge Gest 1H 50g Today O09.92 - Supervision of high risk , unspecified, second trimester, Z13.1 - Encounter for screening for diabetes mellitus HIV Today O09.92 - Supervision of high risk , unspecified, second trimester Syphilis Antibodies Today O09.92 - Supervision of high risk , unspecified, second trimester 05/20/25 1414 <Electronically signed by Meena olivarez MD> Date _ Meena Us MD Cosigner Signature: Date (if applicable) CC: ~ [facility] Work Phone: 1(680) 871-600307-25-2025 Evaluation note* Diagnosis Onset Date Resolution Status Admit Date Anxiety and depression acute Ju ly 2024 10:39am History of miscarriage, currently acute April 23 10:39am acute April 23 10:39am Supervision of high-risk acute April 23, 2025 10:39am Placenta previa resolved March 10:39am Anxiety and depression acute Au 2024 6:10pm History of miscarriage, currently acute May 07, 025 6:10pm acute May 07 6:10pm Supervision of high-risk acute May 07, 2025 6:10pm Placenta previa resolved April 6:10pm Vaginal discharge during resolved May 07, 2025 6:10pm Anxiety and depression acute Au jovon 2024 1:50pm History of miscarriage, currently acute May 20, 2025 1:50pm acute May 20, 2 025 1:50pm Supervision of high-risk acute May 20 1:50pm Placenta previa resolved May 202024 1:50pm Anxiety and depression acute Se pt2024 1:23pm History of miscarriage, currently acute May 1:23pm acute June 07, 2025 1:23pm Supervision of high-risk acute June 07 1:23pm Placenta previa resolved June 07, 2025 1:23pm Anxiety and depression acute Se ptember 2024 12:47pm History of miscarriage, currently acute May 12:47pm acute May 12:47pm Supervision of high-risk acute June 22, 2025 12:47pm Anxiety and depression acute Oc tob2024 9:44am History of miscarriage, currently acute July 06, 2025 9:44am acute July 06, 2 025 9:44am Supervision of high-risk acute July 06 9:44am Anxiety and depression acute Oc tober 2024 9:36am History of miscarriage, currently acute July 21, 2025 9:36am acute July 21, 2025 9:36am Supervision of high-risk acute July 21 9:36am Anxiety and depression acute No 2024 12:54pm History of miscarriage, currently acute August 05, 2025 12:54pm acute August 05, 2025 12:54pm Supervision of high-risk acute August 05 12:54pm Anxiety and depression acute No 2024 9:02am History of miscarriage, currently acute July 9:02am acute August 09, 2025 9:02am Supervision of high-risk acute August 09 9:02am Uterine size-date discrepancy, third trimester acute Jul 9:02am [facility] Work Phone: 1(843) 205-123707-25-2025 Progress [facility] [address] [place] [address], [address] [place] [address] OFFICE VISIT Date of Service: 04/23/25 MR#: [id number] Acct: [id number] Name: DEBI VERDUZCO Rep #: [id number] : 2000 Provider: BOB Ayala Age/Sex: 25/F Location: [facility] Status: Signed Intake Vital Signs 02/01/25 13:03 03/25/25 13:34 04/23/25 10:44 04/23/25 10:49 Height 5 ft 5 in 5 ft 5 in 5 ft 5 in 5 ft 5 in Weight: 138 lb 8 oz BMI 23.0 BP 108/73 Intake Visit Reasons: 21wk ob Chief Complaint: [address] Freight Required: No Is patient in pain?: No [...] children number of children: 1 current occupation: [employer] current occupational exposures/hazards: No pets and animals: [...] physical activity do you participate in: none dania/spiritism: None seatbelt use: never do you feel safe at home: Yes additional social history: Boyfriend: Johny - Works at [employer] History 4 Elective abortions Hx Para 1 Spontaneous abortions 2 Hx # Term Pregnancies 1 Ectopic pregnancies Hx # Pregnancies Multiple births # of living children 1 Past Pregnancies Del. Date Name GA/Weeks Outcome Route Bth Weight Gen Labor Lgth Anesthesia Del Locatn Provider FOB 11/23/19 Isabela 39 live - full term 6lbs 12oz Female epidural [facility] [facility] 09[facility]30[facility] 8 spontaneous 07/08/24 8 spontaneous [...] current plan of care details and appropriate ordersplaced. Relevant counseling for the gestational age provided. [...] dates. accepts NIPT. [facility]. KW- CRL cons with dates. acc epts NIPT. [facility]-no complications. having significant nausea and vomiting. standing [...] lb) 98/60 Negative -?-?-?-?-?-?-?-?-?-?-?-?- Negative 148 -?-?-?-?-?-?-?-?-?-?-?-?- -No VB, LOF. Good FM. Some continued headache. Taking tylenol. Reviewed caffeine intake. No vision changes. Phenergan sent 04/23/25 -?-?-?-?-?-?-?-?-?-?-?-?- 21w 1d 138 lb 8 oz (+8 oz) 108/73 Negative -?-?-?-?-?-?-?-?-?-?-?-?- Negative 145 20 -?-?-?-?-?-?-?-?-?-?-?-?- KW- no vb/crampi delilah. rg fm. discussed previa and follow up US at 28 weeks. ACOG First Trimester First Trimester: Desire for , Alcohol, Tobacco Cessation, Illicit/Recreational Drug/Substance Use, Intimate Partner Violence, Barriers to care, Anticipated Course of Care, Use of Any medications, Sexual activity, Exercise, Dental Care, Sauna/Hot tub use, Seat Belt use, Childbirth c lasses/Hospital facilities, Travel, Indications for Ultrasound and Screening [...] and Symptoms of Preeclampsia, Feeding No , [place] Education and Family Medical Leave or Disability [...] information and see below for orders placed atthis visit. [place] appropriate handout given. 04/23/25 1111 s CHENTEM> Date _ Mariajose Ayala CNM Cosigner Signature: Date (if applicable) CC: ~ [facility]06-26-2025 Evaluation note* Diagnosis Onset Date Resolution Status Admit Date Anxiety and depression acute Ju 2024 1:31pm History of miscarriage, currently acute March 25 1:31pm acute March 25 1:31pm Supervision of high-risk acute March 25, 2025 1:31pm Anxiety and depression acute Ju 2024 10:39am History of miscarriage, currently acute April 23 10:39am acute April 23 10:39am Supervision of high-risk acute April 23, 2025 10:39am Placenta previa resolved March 10:39am Anxiety and depression acute Au 2024 6:10pm History of miscarriage, currently acute May 07, 2 025 6:10pm acute May 07 6:10pm Supervision of high-risk acute May 07, 2025 6:10pm Placenta previa resolved April 6:10pm Vaginal discharge during resolved May 07, 2025 6:10pm Anxiety and depression acute Au jovon 2024 1:50pm History of miscarriage, currently acute May 20, 2025 1:50pm acute May 20, 2 025 1:50pm Supervision of high-risk acute May 20 1:50pm Placenta previa resolved May 202024 1:50pm Anxiety and depression acute Se pt2024 1:23pm History of miscarriage, currently acute May 1:23pm acute June 07, 2025 1:23pm Supervision of high-risk acute June 07 025 1:23pm Placenta previa resolved June 07, 2025 1:23pm Anxiety and depression acute Se ptember 2024 12:47pm History of miscarriage, currently acute May 12:47pm acute May 12:47pm Supervision of high-risk acute June 22, 2025 12:47pm [facility] Work Phone: 1([phone]) 509-921506-26-2025 Evaluation note* Diagnosis Onset Date Resolution Status Admit Date Anxiety and depression acute Ju ne 2024 1:31pm History of miscarriage, currently acute March 25 1:31pm acute March 25 1:31pm Supervision of high-risk acute March 25, 2025 1:31pm Anxiety and depression acute Ju ly 2024 10:39am History of miscarriage, currently acute April 23 10:39am acute April 23 10:39am Supervision of high-risk acute April 23, 2025 10:39am Placenta previa resolved March 10:39am Anxiety and depression acute Au jovon 2024 6:10pm History of miscarriage, currently acute May 07, 025 6:10pm acute May 07 6:10pm Supervision of high-risk acute May 07, 2025 6:10pm Placenta previa resolved April 6:10pm Vaginal discharge during resolved May 07, 2025 6:10pm Anxiety and depression acute Au jovon 2024 1:50pm History of miscarriage, currently acute May 20, 2025 1:50pm acute May 20, 025 1:50pm Supervision of high-risk acute May 20 1:50pm Placenta previa resolved May 202024 1:50pm Anxiety and depression acute Se ptember 2024 1:23pm History of miscarriage, currently acute May 1:23pm acute June 07, 2025 1:23pm Supervision of high-risk acute June 07, 2 025 1:23pm Placenta previa resolved June 07, 2025 1:23pm Anxiety and depression acute Se ptember 2024 12:47pm History of miscarriage, currently acute May 12:47pm acute May 12:47pm Supervision of high-risk acute June 22, 2025 12:47pm Anxiety and depression acute Oc tob2024 9:44am History of miscarriage, currently acute July 06, 2025 9:44am acute July 06, 2 025 9:44am Supervision of high-risk acute July 06 9:44am [facility] Work Phone: 1(210) 455-980505-28-2025 Progress [facility] [address] [place] [address], [address] [place] [address] OFFICE VISIT Date of Service: 02/24/25 MR#: [id number] Acct: [id number] Name: DEBI VERDUZCO Rep #: [id number] : 2000 Provider: Dr. Nica Villalobos DO Age/Sex: 24/F Location: [facility] Status: Signed Intake Vital Signs 01/05/25 08:45 02/19/25 14:36 02/24/25 13:57 Height 5 ft 5 in 5 ft 5 in 5 ft 5 in Weight: 137 lb BMI 22.8 BP 97/62 Intake Visit Reasons: 13wk ob [address] Freight Required: No Is patient in pain?: No [...] children number of children: 1 current occupation: [employer] current occupational exposures/hazards: No pets and animals: [...] physical activity do you participate in: none dania/spiritism: None seatbelt use: never do you feel safe at home: Yes additional social history: Boyfriend: Johny - Works at [employer] History 2 4 Elective abortions Hx Para 1 Spontaneous abortions 2 Hx # Term Pregnancies 1 Ectopic pregnancies Hx # Pregnancies Multiple births # of living children 1 Past Pregnancies Del. Date Name GA/Weeks Outcome Route Bth Weight Infant Gen Labor Lgth Anesthesia Del Locatn Provider FOB 11/23/19 Nathalie 39 live - full term 6lbs 12oz Female epidural [facility] 09/30/21 8 spontaneous 07/08/24 8 spontaneous [...] current plan of care details and appropriate ordersplaced. Relevant counseling for the gestational age provided. [...] dates. accepts NIPT. [facility]. KW- CRL cons with dates. acc epts NIPT. [facility]no complications. having significant nausea and vomiting. standing [...] Sauna/Hot tub use, Seat Belt use, Childbirth c lasses/Hospital facilities, Travel, Indications for Ultrasound and Screening [...] and Symptoms of Preeclampsia, Feeding No , Education and Family Medical [...] shortness of breath or wheezing 02/24/25 1439 e Gilma DO> Date _ Colleen Villalobos DO Cosigner Signature: Date (if applicable) CC: ~ [facility]05-28-2025 Progress note Author Colleen Dillard [facility] Services Note Date/Time February 24, 2025 2:39p [facility] [address], [address] [place] [address] OFFICE VISIT Date of Service: 02/24/25 MR#: [id number] Acct: [id number] Name: DEBI VERDUZCO Rep #: [id number] : 2000 Provider: Dr. Nica Villalobos DO Age/Sex: 24/F Location: [facility] Status: Signed Intake Vital Signs 01/05/25 08:45 02/19/25 14:36 02/24/25 13:57 Height 5 ft 5 in 5 ft 5 in 5 ft 5 in Weight: 137 lb BMI 22.8 BP 97/62 Intake Visit Reasons: 13wk ob [address] Freight Required: No Is patient in pain?: No [...] children number of children: 1 current occupation: [employer] current occupational exposures/hazards: No pets and animals: [...] physical activity do you participate in: none dania/spiritism: None seatbelt use: never do you feel safe at home: Yes additional social history: Boyfriend: Johny - Works at [employer] History 2 4 Elective abortions Hx Para 1 Spontaneous abortions 2 Hx # Term Pregnancies 1 Ectopic pregnancies Hx # Pregnancies Multiple births # of living children 1 Past Pregnancies Del. Date Name GA/Weeks Outcome Route Bth Weight Gen Labor Lgth Anesthesia Del Locatn Provider FOB 11/23/19 Nathalie 39 live - full term 6lbs 12oz Female epidural [facility] 09/30/21 8 spontaneous 07/08/24 8 spontaneous Delivery Date: 11/23/19 Last Updated by: Tamar Chan, DONNELL No complications - Induced d/t discomfort HPI [...] dates. accepts NIPT. [facility]. KW- CRL cons with dates. acc epts NIPT. [facility]no complications. having significant nausea and vomiting. standing [...] Cosigner Signature: Date (if applicable) CC: ~ [facility] Work Phone: 1(992) 341-736305-23-2025 Evaluation note* Diagnosis Onset Date Resolution Status Admit Date Anxiety and depression acute Ma y 2024 [...] 2025 1 :46pm Anxiety and depression acute Ju 2024 1:31pm History of miscarriage, currently acute March 25 1:31pm acute March 25 1:31pm Supervision of high-risk acute March 25, 2025 1:31pm Anxiety and depression acute Ju 2024 10:39am History of miscarriage, currently acute April 23 10:39am Placenta previa acute March 10:39am acute April 23 10:39am Supervision of high-risk acute April 23, 2025 10:39am Anxiety and depression acute Au jovon 2024 6:10pm History of miscarriage, currently acute May 07, 2 025 6:10pm Placenta previa acute April 6:10pm acute May 07 6:10pm Supervision of high-risk acute May 07, 2025 6:10pm Vaginal discharge during resolved May 07, 2025 6:10pm Anxiety and depression acute Au jovon 2024 1:50pm History of miscarriage, currently acute May 20, 2025 1:50pm Placenta previa acute May 202024 1:50pm acute May 20, 2 025 1:50pm Supervision of high-risk acute May 20 1:50pm Anxiety and depression acute Se pt2024 1:23pm History of miscarriage, currently acute May 1:23pm Placenta previa acute June 07, 2025 1:23pm acute June 07, 2025 1:23pm Supervision of high-risk acute June 07, 2 025 1:23pm [facility] Work Phone: 1(961) 207-987205-05-2025 Evaluation note* Diagnosis Onset Date Resolution Status Admit Date Anxiety and depression acute Ma y 2024 [...] of high-risk acute April 23, 2025 10:39am [facility] Work Phone: [phone] Evaluation note* Diagnosis Onset Date Resolution Status Admit Date Anxiety and depression acute Ma y 2024 [...] 2025 1 :46pm Anxiety and depression acute Ju 2024 1:31pm History of miscarriage, currently acute March 25 1:31pm acute March 25 1:31pm Supervision of high-risk acute March 25, 2025 1:31pm Anxiety and depression acute Ju 2024 10:39am History of miscarriage, currently acute April 23 10:39am Placenta previa acute March 10:39am acute April 23 10:39am Supervision of high-risk acute April 23, 2025 10:39am Anxiety and depression acute Au 2024 6:10pm History of miscarriage, currently acute May 07, 2 025 6:10pm Placenta previa acute April 6:10pm acute May 07 6:10pm Supervision of high-risk acute May 07, 2025 6:10pm Vaginal discharge during resolved May 07, 2025 6:10pm Anxiety and depression acute Au jovon 2024 1:50pm History of miscarriage, currently acute May 20, 2025 1:50pm Placenta previa acute May 202024 1:50pm acute May 20, 2 025 1:50pm Supervision of high-risk acute May 20 1:50pm [facility] Work Phone: 1([phone]) 314-251905-04-2025 Emergency department Note* Lorenza Jeter PA-C - [...] MDM Diagnoses as of 01/31/252038 Morning sickness ([facility]) Urinary tract infection without hematuria, site unspecified [...] Lorenza Jeter PA-C 01/31/252038 documented in this [facility] Work Phone: 1([phone]) 674-741805-04-2025 Physician Emergency department Note* Lorenza Jeter PA-C [...] MDM Diagnoses as of 01/31/252038 Morning sickness ([facility]) Urinary tract infection without hematuria, site unspecified [...] use: Not Currently Lorenza Jeter PA-C 01/31/252038 [facility] Work Phone: 1([phone]) 955-516504-08-2025 Evaluation note* Diagnosis Onset Date Resolution Status Admit Date Amenorrhea inactive January 05 8:38am Anxiety and depression acute Ma y 2024 12:58pm History of miscarriage, currently acute February 01, 2025 12:58pm acute February 01, 2025 12:58pm Supervision of high-risk acute February 01, 2025 12 :58pm [facility] Work Phone: 1([phone]) 927-814004-08-2025 Evaluation note* Diagnosis Onset Date Resolution Status [...] high-risk acute February 24, 2025 1 :46pm [facility] Work Phone: 1([phone]) 292-853504-08-2025 Evaluation note* Diagnosis Onset Date Resolution Status [...] of high-risk acute March 25, 2025 1:31pm [facility] Work Phone: 1([phone]) 409-120504-08-2025 Evaluation note* Diagnosis Onset Date Resolution Status [...] 2025 1 :46pm Anxiety and depression acute Ju 2024 1:31pm History of miscarriage, currently acute March 25 1:31pm acute March 25 1:31pm Supervision of high-risk acute March 25, 2025 1:31pm Anxiety and depression acute 2024 10:39am History of miscarriage, currently acute April 23 10:39am Placenta previa acute March 10:39am acute April 23 10:39am Supervision of high-risk acute April 23, 2025 10:39am [facility] Work Phone: 1([phone]) 413-687901-31-2025 Hospital Discharge instructions* Discharge Instructions* Emily Claros [...] recommendation.. It is recommended thatyou follow-up with [facility]. Return immediately for any new or worsening symptoms. documented in this [facility] Work Phone: 1([phone]) 232-414201-31-2025 Physician Emergency department Note* Emily Claros PA-C [...] nursing note reviewed. Exam conducted with a counter person present (Morena Hwang RN). Constitutional: General: She [...] They had eloped from the emergency department. Lois diagnosis includes but not limited to abnormal uterine bleeding, retained products of conception, ectopic , miscarriage Amount and/or Complexity of Data Reviewed Labs: ordered. Decision-making details documented in ED Course. Diagnoses as of 10/30/24 1230 Vaginal bleeding Emily Claros PA-C 10/30/24 1230 [facility] Work Phone: 1([phone]) [phone] Emergency department Note* Emily Claros PA-C - [...] nursing note reviewed. Exam conducted with a counter person present (Morena Hwang RN). Constitutional: General: She [...] [facility] had [facility] the emergency department. [facility] diagnosis includes but not limited to abnormal uterine bleeding, retained products of conception, ectopic , miscarriage Amount and/or Complexity of Data Reviewed Labs: ordered. Decision-making details documented in ED Course. Diagnoses as of 10/30/24 1230 Vaginal bleeding Emily Claros PA-C 10/30/24 1230 documented in this [facility] Work Phone: [phone] History of Present illness Narrative* Jose Delgado [...] mcg/actuation aero powdr breath act w/sensor inhaler [id number] Inhale 1 puff every 6 hours if needed for wheezing. Historical Provider, Active escitalopram (Lexapro) 20 mg tablet [id number] Take 1 tablet (20 mg) by mouth once daily. Radha Cary, SHEET METAL ERECTOR-SCRIPT SUPERVISOR Active Discontinued 07/06/24 1354 vit,bruce 41-hpgs-hvqbu 27 mg iron- 1 mg tablet [id number] Take 1 tablet by mouth once daily.Jose Delgado MD Active vitamin, iron-folic, ( Vitamin) 27 mg iron-800 mcg folic acid tablet [id number] Take by mouth. Historical Provider, Active promethazine (Phenergan) 25 mg tablet [id number] Take 1 tablet (25 mg) by mouth every 6 hours if needed for nausea or vomiting. Jose Delgado MD Active BP 104/62 Ht 1.651 m (5' 5) Wt 64.5 kg (142 lb 3.2 oz) LMP 05/09/2024 (Exact Date) BMI 23.66 kg/m PHYSICAL EXAMINATION: Band Saw Operator present for exam: Colleenyina Mcgarry LPN Well-developed, well nourished, in no acute distress, [...] This Visit None Visit Diagnoses test positive ([facility]) Relevant Orders POCT , urine manually resulted (Completed) Provider Impression: 1. Amenorrhea Follow-up in 3 weeks for new OB visit, cultures and labs. [facility] Phone: 1([phone]) 486-182110-01-2024 Telephone encounter Note* Telephone Encounter - Jennifer Dewey RN - 06/30/2024 12:17 PM EDT Left message for patient to return phone call to complete nurse intake questions for her upcoming appointment. Patient has an appointment with Ana Callaway for NOB appointment. [facility]10-01-2024 Miscellaneous Notes* Telephone Encounter - Jennifer Dewey RN - 06/30/2024 12:17 PM EDT Left message for patient to return phone call to complete nurse intake questions for her upcoming appointment. Patient has an appointment with Ana Callaway for NOB appointment. [facility] [place] History and physical note * Forrest Mohr MD - 03/05/2024 7:30 AM EDT Pre procedure H&P Pt feels fine , no complaint General appearance: Comfortable, no distress ROS: No SOB Medications reviewed Head: Normal Neck: Soft Heart: Regular Lungs: Clear Abdomen: soft Impression: clinically doing fine, proceed with procedure Problem List Items Addressed This Visit None Visit Diagnoses Colitis Relevant Orders Colonoscopy Diagnostic [facility] Work Phone: 1([phone]) 554-185506-06-2024 History and physical note* Forrest Mohr MD [...] Relevant Orders Colonoscopy Diagnostic [facility] Work Phone: [phone]) [phone] History and physical note* Forrest Mohr MD [...] Relevant Orders Colonoscopy Diagnostic [facility] Work Phone: 1([phone]) 147-454505-02-2024 History of Present illness Narrative* Forrest Mohr [...] OR PROCEDURE REFERRAL, . [facility] Work Phone: 1([phone]) 618-777005-02-2024 Miscellaneous Notes* Addendum Note - Forrest Mohr MD - 01/30/2024 3:45 PM EDTAddended by: FORREST MOHR on: 01/30/2024 05:37 PM Modules accepted: Level of Service [facility] Work Phone: [phone]) [phone] Note* Addendum Note - Forrest Mohr MD - 01/30/2024 3:45 PM EDTAddended by: FORREST MOHR on: 01/30/2024 05:37 PM Modules accepted: Level of Service [facility] Work Phone: 1([phone]) [phone] Reason for referral (narrative)* Consultation (Routine) - Authorized Specialty Diagnoses / Procedures Referred By Contac t Referred To Contact General Surgery Shae Pastor DO [address] [place] [address] Referral ID Status Reason Start Date Expiration Date Visits Requested Visits Authorized [id number] Authorized Specialty Services Required 01/30/2024 01/29/2025 1 1 * Consultation (Emergency) - Authorized Specialty Diagnoses / Procedures Referred By Contac t Referred To Contact Gastroenterology Shae Pastor DO [address] [place] [address] Referral ID Status Reason Start Date Expiration Date Visits Requested Visits Authorized [id number] Authorized Specialty Services Required 01/30/2024 01/29/2025 1 1 * Consultation (Routine) - Authorized Specialty Diagnoses / Procedures Referred By Kory t Referred To Contact Family Medicine / Primary Care Shae Pastor DO [address] [place] [address] Referral ID Status Reason Start Date Expiration Date Visits Requested Visits Authorized [id number] Authorized Specialty Services Required 01/30/2024 01/29/2025 1 1 [facility] Work Phone: 1(341) [phone] Evaluation + Plan note* Assessment & Plan Note - ROSCOE Marshall - 10/31/2023 8:11 AM ESTAssociated Problem(s): Generalized anxiety disorder Continue Escitalopram 20 mg daily. [facility] Work Phone: 1(703) 277-638402-01-2024 Evaluation + Plan note* Assessment & Plan Note - ROSCOE Marshall - 10/31/2023 8:11 AM ESTAssociated Problem(s): Persistent depressive disorder Stable Continue Escitalopram 20 mg daily [facility] Work Phone: [phone]) 636-521802-01-2024 Miscellaneous Notes* Assessment & Plan Note - ROSCOE Marshall - 10/31/2023 8:11 AM ESTAssociated Problem(s): Generalized anxiety disorder Continue Escitalopram 20 mg daily. * Assessment & Plan Note - ROSCOE Marshall - 10/31/2023 8:11 AM EST Associated Problem(s): Persistent depressive disorder Stable Continue Escitalopram 20 mg daily documented in this [facility] Work Phone: 1(902) 618-580801-30-2024 History of Present illness Narrative* Leigh Blakely CMA - 10/29/2023 1:00 PM EST Follow up and refills * ROSCOE Marshall - 10/29/2023 1:00 PM EST Subjective Patient ID: Debi Verduzco is a 23 y.o. female who presents for Follow-up. HPI Debi returns for anxiety/depression medication refill. She has no other concerns today. Anxiety/depression: doing well on Lexapro. Is in counseling at [facility]. 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 Review [...] with results of labs. [facility] Work Phone: [phone] 263-212501-30-2024 Instructions* Patient Instructions* ROSCOE Marshall - 10/29/2023 [...] seek urgent/emergent care including calling Suicide Hotline (644 or ) or 911. [facility] Work Phone: [phone]) 254-567604-26-2023 Evaluation + Plan note* Assessment & Plan Note - ROSCOE Marshall - 01/23/2023 2:35 PM EDTAssociated Problem(s): Generalized anxiety disorder We will restart her Lexapro at 5 mg and increase after a week to 10 mg. She will let us know how she is doing and then we can increase her back up to 20 mg. [facility] Work Phone: 1([phone]) 502-859604-26-2023 Miscellaneous Notes* Assessment & Plan Note - ROSCOE Marshall - 01/23/2023 2:35 PM EDTAssociated Problem(s): Generalized anxiety disorder We will restart her Lexapro at 5 mg and increase after a week to 10 mg. She will let us know how she is doing and then we can increase her back up to 20 mg. [facility] Work Phone: [phone]) [phone] History of Present illness Narrative* ROSCOE Marshall - 01/23/2023 1:40 PM EDT Subjective Patient ID: Debi Verduzco is a 22 y.o. female who presents for anxiety/depression. HPI Debi returns virtually for anxiety/depression. Is going to start counseling beginning of January at [facility]. She reports she is feeling anxious and [...] beginning a new job next week at [employer]. She is excited about this. Suicide hotline [...] disorder without psychotic features without prior episode ([facility]/HCC) BMI 22.0-22.9, adult Time Spent Time spent directly with patient, family or caregiver: 30 minutes (minutes virtual visit) Follow up in 3 months for medication check. She will let us know how she is doing after 1 month. [facility] Work Phone: [phone]) 516-113602-06-2023 History of Present illness Narrative Presents she had onset of left breast pain and redness with warmth to the touch since yesterday. Denies any nipple discharge or any breast lumps.[facility] Work Phone: [phone]) [phone] History of Present illness NarrativePatient presents stating that she has not had a menstrual flow after a course of Provera 5 mg for 10 days for withdrawal challenge in mid June. Patient had received her Depo-Provera shot in December and has had no menstrual flow since then.[employer] Work Phone: Evaluation noteNo assessment information available [facility] Work Phone: Evaluation note* Diagnosis Generalized anxiety disorder- Primary Current severe episode of major depressive disorder without psychotic features without prior episode (CMS/HCC) BMI 22.0-22.9, adult documented in this encounter [facility] Work Phone: Evaluation note* Diagnosis Generalized anxiety disorder- Primary Persistent depressive disorder BMI 22.0-22.9, adult documented in this encounter [facility] Work Phone: Evaluation note* Diagnosis Colitis- Primary Other and unspecified noninfectious gastroenteritis and colitis Rectal bleeding Hemorrhage of rectum and anus Abdominal pain, generalized Kidney stone Calculus of kidney documented in this encounter [facility] Work Phone: Evaluation note* Diagnosis Colitis- Primary Other and unspecified noninfectious gastroenteritis and colitis documented in this encounter [facility] Work Phone: Evaluation note* Diagnosis Colitis Other and unspecified noninfectious gastroenteritis and colitis documented in this encounter [facility] Work Phone: Evaluation note* Diagnosis Generalized anxiety disorder- Primary Current severe episode of major depressive disorder without psychotic features without prior episode (Multi) BMI 22.0-22.9, adult Generalized anxiety disorder- Primary Persistent depressive disorder BMI 22.0-22.9, adult Amenorrhea- Primary Absence of menstruation test positive ([facility]) examination or test, positive result documented in this encounter [facility] Work Phone: Evaluation note* Diagnosis Generalized anxiety disorder- Primary Current severe episode of major depressive disorder without psychotic features without prior episode (Multi) BMI 22.0-22.9, adult Generalized anxiety disorder- Primary Persistent depressive disorder BMI 22.0-22.9, adult Vaginal bleeding- Primary Other specified noninflammatory disorder of vagina documented in this encounter [facility] Work Phone: Evaluation note* Diagnosis Generalized anxiety disorder- Primary Current severe episode of major depressive disorder without psychotic features without prior episode (Multi) BMI 22.0-22.9, adult Generalized anxiety disorder- Primary Persistent depressive disorder BMI 22.0-22.9, adult Morning sickness ([facility])- Primary Mild hyperemesis gravidarum, unspecified as to episode of care Urinary tract infection without hematuria, site unspecified documented in this encounter [facility] Work Phone: Evaluation note* Diagnosis Generalized anxiety disorder- Primary Current severe episode of major depressive disorder without psychotic features without prior episode (Multi) BMI 22.0-22.9, adult Generalized anxiety disorder- Primary Persistent depressive disorder BMI 22.0-22.9, adult Colitis Other and unspecified noninfectious gastroenteritis and colitis documented in this encounter [facility] Work Phone: History of Present illness Narrative* [...] Drugs: Denies * Caffeine: 1 cup day [facility] Work Phone: History of Present illness Narrative* Debi returns for medication check. * doing well. feels like [facility] 205 DO Work Phone: History of Present illness Narrative* Debi returns for medication check. * Anxiety/depression: She reports she is doing well. doing well. She would like to see if the dose can be increased as she feels it is working just thinks it can be better. States, my boyfriend has noticed a difference in my mood. [facility] 205 DO Work Phone: History of Present illness [id number] presents for pain during intimacy. Patient has [...] 2 monthsago has not yet had a [email or web address] Work Phone: History of Present illness [id number]-oow presents for results review. Patient interested in fertility and would like to have a cycle here shortly to start that process. Patient's been almost a month since her last Depo shot. Patient is no acute concerns. Patient went to the ED and found out that a CT really showed nothing.[employer] Work Phone: History of Present illness NarrativePatient presents for follow-up after being seen in the emergency room recently due to vaginal bleeding. Patient states that she still has some bleeding and some cramps. She has some breast tenderness.[employer] Work Phone: Hospital Discharge instructions* Attachments The following attachments cannot be sent through Care Everywhere. * Colitis Discharge Instructions ([facility]) * Abdominal Pain, Adult ED ([facility]) * Bloody Stools, Adult ED ([facility]) * Kidney Stone, Adult ED ([facility]) [facility]: Hospital Discharge instructions* Attachments The following attachments cannot be sent through Care Everywhere. * Urinary Tract Infection, Adult ED ([facility]) * Morning Sickness ED ([facility]) [facility] Work Phone: Progress note Author Mariajose Ayala [facility] Note Date/Time April 23, 2025 11:1 1am [facility] [address] [place] [address], [address] [place] [address] OFFICE VISIT Date of Service: 04/23/25 MR#: [id number] Acct: [id number] Name: DEBI VERDUZCO Rep #: [id number] : 2000 Provider: BOB Ayala Age/Sex: 25/F Location: [facility] Status: Signed Intake Vital Signs 02/01/25 13:03 03/25/25 13:34 04/23/25 10:44 04/23/25 10:49 Height 5 ft 5 in 5 ft 5 in 5 ft 5 in 5 ft 5 in Weight: 138 lb 8 oz BMI 23.0 BP 108/73 Intake Visit Reasons: 21wk ob Chief Complaint: [address] Freight Required: No Is patient in pain?: No [...] children number of children: 1 current occupation: [employer] current occupational exposures/hazards: No pets and animals: [...] physical activity do you participate in: none dania/spiritism: None seatbelt use: never do you feel safe at home: Yes additional social history: Boyfriend: Johny - Works at [employer] History 4 Elective abortions Hx Para 1 Spontaneous abortions 2 Hx # Term Pregnancies 1 Ectopic pregnancies Hx # Pregnancies Multiple births # of living children 1 Past Pregnancies Del. Date Name GA/Weeks Outcome Route Bth Weight Infant Gen Labor Lgth Anesthesia Del Locatn Provider FOB 11/23/19 Nathalie 39 live - full term 6lbs 12oz Female epidural [facility] Johny 09/30/21 8 spontaneous 07/08/24 8 spontaneous [...] dates. accepts NIPT. [facility] [employer]. KW- CRL cons with dates. acc epts NIPT. [facility] [employer]no complications. having significant nausea and vomiting. standing [...] -?-?-?-?-?-?-?-?-?-?-?-?- Negative 145 20 -?-?-?-?-?-?-?-?-?-?-?-?- KW- no vb/crampi ng. rg fm. discussed previa and follow up US [...] and Symptoms of Preeclampsia, Feeding No , Education and Family Medical [...] Supervision of high risk in second trimester O09. Trimester: second trimester History of miscarriage, currently [...] trimester Comment: PRR , MYRON 09/02/25, PC: Nathalie BF: Johny (3) History of miscarriage, currently [...] oleary CNM> Date _ Mariajose Ayala CNM Cosigner Signature: Date (if applicable) CC: ~ [facility] Work Phone: Progress note Author Mariajose Ayala [facility] Note Date/Time June 22, 2025 1:24pm [facility] [address], [facility] [address] [place] [address] OFFICE VISIT Date of Service: 06/22/25 MR#: [id number] Acct: [id number] Name: DEBI VERDUZCO Rep #: [id number] : 2000 Provider: BOB Ayala Age/Sex: 25/F Location: [facility] Status: Signed Intake Vital Signs 04/23/25 10:49 06/07/25 13:30 06/22/25 12:57 Height 5 ft 5 in 5 ft 5 in 5 ft 5 in Weight: 152 lb 1 oz BMI 25.2 BP 107/72 Intake Visit Reasons: 30 WK OB Chief Complaint: 30wk OB [address] Freight Required: No Is patient in pain?: No Allergies No Known Allergies Allergy (Verified 06/22/25 12:55) Medications ?Medication ?Instructions ?Recorded ?Confirmed ?Type vits no.130-ferrous fum 1 tab PO QDAY 5 06/22/25 History 27 mg iron-folic acid 800 mcg tablet ( Vitamin) famotidine 20 mg tablet (Pepcid) 20 mg PO QDAY #30 tab s 06/07/25 06/22/25 Rx Last Menstrual Period: 11/26/24 PFSH PFSH Surgical History S/P tonsillectomy and adenoidectomy Social History adopted: No household members: significant other and children number of children: 1 current occupation: [employer] current occupational exposures/hazards: No pets and animals: [...] physical activity do you participate in: none dania/spiritism: None seatbelt use: never do you feel safe at home: Yes additional social history: Boyfriend: Johny - Works at [employer] History 4 Elective abortions Hx Para 1 Spontaneous abortions 2 Hx # Term Pregnancies 1 Ectopic pregnancies Hx # Pregnancies Multiple births # of living children 1 Past Pregnancies Del. Date Name GA/Weeks Outcome Route Bth Weight Infant Gen Labor Lgth Anesthesia Del Locatn Provider FOB 11/23/19 Isabela 39 live - full term 6lbs 12oz Female epidural [facility] Johny 09/30/21 8 spontaneous 07/08/24 8 spontaneous Delivery Date: 11/23/19 Last Updated by: Tamar Chan RN No complications - Induced d/t discomfort HPI 30 WK OB Details: DEBI VERDUZCO is a 25 year old who presents for routine OB visit. OB Visit MYRON Calculator Estimated Delivery Date Method Current WG Current Estimate 09/02/25 LMP (Certain) 29w 5d Other Estimates 09/02/25 Ultrasound #1 29w 5d 09/02/25 Ultrasound #2 29w 5d Expected Delivery Route/Plan Labor Preferences- CB/BF classes: no labor support person: Esequiel labor intervention preferences: [] pain management options preferred: epidural cut cord/dad catch: yes : yes PP control planned: yes discussed possible routes of delivery and associated risks: [] special requests: [] Specific Issue/Plans Covid status: [] Flu vaccine: [] Tdap vaccine: [] Rhogam: na LARC form signed: yes Problem list reviewed and updated with the [...] 9w 4d 138 lb (+0 oz) 109/71 -?-?-?-?-?-?-?-?-?-?-?-?- 186 -?-?-?-?-?-?-?-?-?-?-?-?- KW- CRL cons wit h dates. accepts NIPT. [facility] [employer]. KW- CRL cons with dates. acc epts NIPT. [facility] [employer] [employer]-no complications. having significant nausea and vomiting. standing [...] intake. No vision changes. Phenergan sent 04/23/25 -?-?-?-?--?-?-?-?-?-?-?-?- 21w 1d 138 lb 8 oz (+8 oz) 108/73 Negative -?-?-?-?-?-?-?-?-?-?-?-?- Negative 145 20 -?-?-?-?-?-?-?-?-?-?-?-?- KW- no vb/crampi ng. good fm. discussed previa and follow up US at 28 weeks. 05/20/25 -?-?-?-?-?-?-?-?-?-?-?-?- 25w 0d 145 lb 3 oz (+7 lb 3 oz) 110/72 Negative -?-?-?-?-?-?-?-?-?-?-?-?- Negative 145 25 -?-?-?-?-?-?-?-?-?-?-?-?- SM- no vb lof go od fm no reuglar ctx 06/07/25 -?-?-?-?-?-?-?-?-?-?-?-?- 27w 4d 147 lb 9 oz (+9 lb 9 oz) 112/73 -?-?-?-?-?-?-?-?-?-?-?-?- 141 27 -?-?-?-?-?-?-?-?-?-?-?-?- MH-No vB, LOF. G ood FM. Larc, 28 wk labs pending. Has US w MFM scheduled 06/22/25 -?-?-?-?-?-?-?-?-?-?-?-?- 29w 5d 152 lb 1 oz (+14 lb 1 oz) 107/72 Negative -?-?-?-?-?-?-?-?-?-?-?-?- Negative 140 30 -?-?-?-?-?-?-?-?-?-?-?-?- KW- no vb/lof/ct x. good fm. tdap today. would like BTO after delivery Title 19 signed. ACOG First Trimester First Trimester: Desire for , Alcohol, Tobacco Cessation, Illicit/Recreational Drug/Substance Use, Intimate Partner Violence, Barriers to care, Anticipated Course of Care, Use of Any medications, Sexual activity, Exercise, Dental Care, Sauna/Hot tub use, Seat Belt use, Childbirth classes/Hospital facilities, Travel, Indications for Ultrasound and Screening for Aneuploidy; Discussed Unstable Housing, Discussed Communication Barriers, Discussed Environmental/Work Hazards and Discussed Toxoplasmosis Precations Second Trimester Second Trimester: Signs and Symptoms of Labor, Selecting a care provider, Reproductive Life Planning & Contreception, Care Planning, Depression/Anxiety and Intimate Partner Violence; Discussed Tobacco Cessation Third Trimester Third Trimester: Pain Management Plans, Labor support person(s), Immediate Larc, Circumcision preference, Signs and Symptoms of Preeclampsia, Infant Feeding, [place] Education and Family Medical Leave or Disability [...] Office Urine Glucose Negative Last Edit by Nelli Askew on 06/22/25 13:04 Office Urine Protein Negative Last Edit by Nelli Askew on 06/22/25 13:04 Immunizations Adacel(Tdap Adolesn/Adult)(PF) 2 Lf-(2.5-5-3-5)-5 Lf/0.5 mL IM syringe Performing Provider: Mariajose Ayala CNM Performing Location: [facility] Administered by: Nelli Askew on 06/22/25 13:04 Dose Route Admin Location Dispensed Lot Number Expiration Date Pack age NDC NDC Travel Administrator 0.5 mL IM Left Deltoid 0.5 mL [id number] 05/29/27 39917-488-22 [id number] [employer] VIS Given Date VIS Provided VIS Publication Date 06/22/25 Single Vaccine 24 Eligibility Eligibility Date Funding Source Not Applicable Coding Level of Care Code Off vis,est,level 3 Diagnoses History of miscarriage, currently O09.299 Supervision of high risk in second trimester O09.92 Trimester: second trimester Anxiety and depression F41.9; F32.A 29 weeks gestation of Z3A.29 Weeks of gestation: 29 weeks Assessment and Plan Assessment and Plan (1) History of miscarriage, currently : Status: Acute Comment: x2 (2) Supervision of high-risk : Status: Acute Qualifiers: Trimester: second trimester Qualified Code(s): O09.92 - Supervision of high risk , unspecified, second trimester Comment: PRR , MYRON 09/02/25,karine crenshaw PC: Nathalie BF: Johny (3) Anxiety and depression: Status: Acute Comment: was on Lexapro - stopped awhile ago; stable (4) : Status: Acute Qualifiers: Weeks of gestation: 29 weeks Qualified Code(s): Z3A.29 - 29 weeks gestation of Comment: NIPT low risk Orders: Orders POC Urinalysis 2 Dip (Clinic) Today Tdap Immunization Today Z23 - Encounter for immunization Plan Details Additional Comments: ACOG trimester education reviewed and updated. see problem list details for updated plan management information and see below for orders placed at this visit. GA appropriate handout given. 06/22/25 1324 <Electronically signed by Mariajose oleary CNM> Date _ Mariajose Ayala CNM Cosigner Signature: Date (if applicable) CC: ~ [facility] Work Phone: Progress note Author Colleen Dillard [facility] Note Date/Time July 06, 2025 10 :15am [facility] [address], [address] [place] [address] OFFICE VISIT Date of Service: 07/06/25 MR#: [id number] Acct: [id number] Name: DEBI VERDUZCO Rep #: [id number] : 2000 Provider: Dr. Nica Villalobos DO Age/Sex: 25/F Location: [facility] Status: Signed Intake Vital Signs 05/20/25 13:53 06/22/25 12:57 07/06/25 09:56 Height 5 ft 5 in 5 ft 5 in 5 ft 5 in Weight: 156 lb 3 oz BMI 25.9 BP 112/73 Intake Visit Reasons: 31 WK [address] Freight Required: No Is patient in pain?: No Allergies No Known Allergies Allergy (Verified 07/06/25 09:57) Medications ?Medication ?Instructions ?Recorded ?Confirmed ?Type vits no.130-ferrous fum 1 tab PO QDAY 5 07/06/25 History 27 mg iron-folic acid 800 mcg tablet ( Vitamin) famotidine 20 mg tablet (Pepcid) 20 mg PO QDAY #30 tab s 06/07/25 07/06/25 Rx ferrous gluconate 324 mg (38 mg 324 mg PO QDAY 90 days #90 tabs 07/06/25 07/06/25 Rx iron) tablet Last Menstrual Period: 11/26/24 Zika: Zika virus screening: Negative : No PFSH PFSH Surgical History S/P tonsillectomy and adenoidectomy Social History adopted: No household members: significant other and children number of children: 1 current occupation: [employer] current occupational exposures/hazards: No pets and animals: [...] physical activity do you participate in: none dania/spiritism: None seatbelt use: never do you feel safe at home: Yes additional social history: Boyfriend: Johny - Works at [employer] History 4 Elective abortions Hx Para 1 Spontaneous abortions 2 Hx # Term Pregnancies 1 Ectopic pregnancies Hx # Pregnancies Multiple births # of living children 1 Past Pregnancies Del. Date Name GA/Weeks Outcome Route Bth Weight Gen Labor Lgth Anesthesia Del Locatn Provider FOB 11/23/19 Nathalie 39 live - full term 6lbs 12oz Female epidural [facility] Johny 09/30/21 8 spontaneous 07/08/24 8 spontaneous Delivery Date: 11/23/19 Last Updated by: Tamar Chan RN No complications - Induced d/t discomfort HPI 31 WK 5B OB Details: DEBI VERDUZCO is a 25 year old who presents for routine OB visit. OB Visit [facility] Calculator Estimated Delivery Date Method Current WG Current Estimate 09/02/25 LMP (Certain) 31w 5d Other Estimates 09/02/25 Ultrasound #1 31w 5d 09/02/25 Ultrasound #2 31w 5d Expected Delivery Route/Plan Labor Preferences- CB/BF classes: no labor support person: Esequiel labor intervention preferences: [] pain management options preferred: epidural cut cord/dad catch: yes : yes PP control planned: yes discussed possible routes of delivery and associated risks: [] special requests: [] Specific Issue/Plans Covid status: [] Flu vaccine: [] Tdap vaccine: [] Rhogam: na LARC form signed: yes Problem list reviewed and updated with the [...] 9w 4d 138 lb (+0 oz) 109/71 -?-?-?-?-?-?-?-?-?-?-?-?- 186 -?-?-?-?-?-?-?-?-?-?-?-?- KW- CRL cons wit h dates. accepts NIPT. [facility] [employer]. KW- CRL cons with dates. acc epts NIPT. [facility] [employer]-no complications. having significant nausea and vomiting. standing [...] (-3 lb) 98/60 Negative -?-?-?-?-?-?-?-?-?-?-?-?- Negative 148 -?-?-?-?-?-?-?-?--?-?-?-?- MH-No VB, LOF. Good FM. Some continued headache. Taking tylenol. Reviewed caffeine intake. No vision changes. Phenergan sent 04/23/25 -?-?-?-?-?-?-?-?-?-?-?-?- 21w 1d 138 lb 8 oz (+8 oz) 108/73 Negative -?-?-?-?-?-?-?-?-?-?-?-?- Negative 145 20 -?-?-?-?-?-?-?-?-?-?-?-?- KW- no vb/crampi ng. good fm. discussed previa and follow up US at 28 weeks. 05/20/25 -?-?-?-?-?-?-?-?-?-?-?-?- 25w 0d 145 lb 3 oz (+7 lb 3 oz) 110/72 Negative -?-?-?-?-?-?-?-?-?-?-?-?- Negative 145 25 -?-?-?-?-?-?-?-?-?-?-?-?- SM- no vb lof go od fm no reuglar ctx 06/07/25 -?-?-?-?-?-?--?-?-?-?-?-?- 27w 4d 147 lb 9 oz (+9 lb 9 oz) 112/73 -?-?-?-?-?-?-?-?-?-?-?-?- 141 27 -?-?-?-?-?-?-?-?-?-?-?-?- MH-No vB, LOF. G ood FM. Larc, 28 wk labs pending. Has US w MFM scheduled 06/22/25 -?-?-?-?-?-?-?-?-?-?-?-?- 29w 5d 152 lb 1 oz (+14 lb 1 oz) 107/72 Negative -?-?-?-?-?-?-?-?-?-?-?-?- Negative 140 30 -?-?-?-?-?-?-?-?-?-?-?-?- KW- no vb/lof/ct x. good fm. tdap today. would like BTO after delivery Title 19 signed. 07/06/25 -?-?-?-?-?-?-?-?-?-?-?-?- 31w 5d 156 lb 3 oz (+18 lb 3 oz) 112/73 Negative -?-?-?-?-?-?-?-?-?-?-?-?- Negative 165 32 -?-?-?-?-?-?-?-?-?-?-?-?- JV- no lof, vagi nal bleeding or dec fm. iron ordered for mild anemia. ACOG First Trimester First Trimester: Desire for [...] Management Plans, Labor support person(s), Immediate Larc, Circumcision preference, Signs and Symptoms of Preeclampsia, Feeding No , Education and Family Medical [...] Negative Last Edit by Krystyna Knapp on 07/06/25 10: 11 Office Urine Protein Negative Last Edit by Krystyna Knapp on 07/06/25 10: 11 Immunizations Flucelvax [id number] (PF) 45 mcg (15 mcg x 3)/0.5 mL IM syringe Performing Provider: Colleen Villalobos DO Performing Location: [facility] Administered by: Krystyna Knapp on 07/06/25 10:09 2 Dose Route Admin Location Dispensed Lot Number Expiration Date Pack age NDC NDC Travel Administrator 0.5 mL IM Left Deltoid 0.5 mL [id number] 02/06/26 88735-945-76 [id number] [employer]. VIS Given Date VIS Provided VIS Publication Date 07/06/25 Single Vaccine 24 Eligibility Eligibility Date Funding Source Not Applicable Coding Level of Care Code Off vis,est,level 3 Diagnoses History of miscarriage, currently O09.299 Supervision of high risk in second trimester O09.92 Trimester: second trimester 31 weeks gestation of Z3A.31 Weeks of gestation: 31 weeks Anxiety and depression F41.9; F32.A Assessment and Plan Assessment and Plan (1) History of miscarriage, currently : Status: Acute Comment: x2 (2) Supervision of high-risk : Status: Acute Qualifiers: Trimester: second trimester Qualified Code(s): O09.92 - Supervision of high risk , unspecified, second trimester Comment: PRR , MYRON 09/02/25,karine crenshaw PC: Nathalie BF: Johny (3) : Status: Acute Qualifiers: Weeks of gestation: 31 weeks Qualified Code(s): Z3A.31 - 31 weeks gestation of Comment: NIPT low risk (4) Anxiety and depression: Status: Acute Comment: was on Lexapro - stopped awhile ago; stable Orders: Orders POC Urinalysis 2 Dip (Clinic) Today Influenza Immunization Today Z23 - Encounter for immunization Medications: New ferrous gluconate 324 mg PO QDAY 90 tabs 3RF 90 days 07/06/25 1015 <Electronically signed by Colleen Herrera DO> Date _ Colleen Villalobos DO Arsenignjosep Signature: Date (if applicable) CC: ~ [facility] Work Phone: Progress note Author Aisha Vitale [facility] Note Date/Time July 21, 2025 1 0:58am [facility] [address] [place] [address], [address] [place] [address] OFFICE VISIT Date of Service: 07/21/25 MR#: [id number] Acct: [id number] Name: DEBI VERDUZCO Rep #: [id number] : 2000 Provider: CONCEPCION Vitale Age/Sex: 25/F Location: [facility] Status: Signed Intake Vital Signs 06/22/25 12:57 07/06/25 09:56 07/21/25 09:44 Height 5 ft 5 in 5 ft 5 in 5 ft 5 in Weight: 161 lb 1 oz BMI 26.8 BP 108/72 Intake Visit Reasons: 33 WK [address] Freight Required: No Is patient in pain?: No Allergies No Known Allergies Allergy (Verified 07/21/25 09:43) Medications ?Medication ?Instructions ?Recorded ?Confirmed ?Type vits no.130-ferrous fum 1 tab PO QDAY 5 07/21/25 History 27 mg iron-folic acid 800 mcg tablet ( Vitamin) famotidine 20 mg tablet (Pepcid) 20 mg PO QDAY #30 tab s 06/07/25 07/21/25 Rx ferrous gluconate 324 mg (38 mg 324 mg PO QDAY 90 days #90 tabs 07/06/25 07/21/25 Rx iron) tablet Last Menstrual Period: 11/26/24 Zika: Zika virus screening: Negative : No PFSH PFSH Surgical History S/P tonsillectomy and adenoidectomy Social History adopted: No household members: significant other and children number of children: 1 current occupation: [employer] current occupational exposures/hazards: No pets and animals: [...] physical activity do you participate in: none dania/spiritism: None seatbelt use: never do you feel safe at home: Yes additional social history: Boyfriend: Johny - Works at [employer] History 4 Elective abortions Hx Para 1 Spontaneous abortions 2 Hx # Term Pregnancies 1 Ectopic pregnancies Hx # Pregnancies Multiple births # of living children 1 Past Pregnancies Del. Date Name GA/Weeks Outcome Route Bth Weight Gen Labor Lgth Anesthesia Del Locatn Provider FOB 11/23/19 Nathalie 39 live - full term 6lbs 12oz Female epidural [facility] Johny 09/30/21 8 spontaneous 07/08/24 8 spontaneous Delivery Date: 11/23/19 Last Updated by: Tamar Chan RN No complications - Induced d/t discomfort HPI 33 WK 6D OB Details: DEBI VERDUZCO is a 25 year old who presents for routine OB visit. OB Visit MYRON Calculator Estimated Delivery Date Method Current WG Current Estimate 09/02/25 LMP (Certain) 33w 6d Other Estimates 09/02/25 Ultrasound #1 33w 6d 09/02/25 Ultrasound #2 33w 6d Expected Delivery Route/Plan Labor Preferences- CB/BF classes: no labor support person: Esequiel labor intervention preferences: [] pain management options preferred: epidural cut cord/dad catch: yes : yes PP control planned: yes discussed possible routes of delivery and associated risks: [] special requests: [] Specific Issue/Plans Covid status: [] Flu vaccine: given Tdap vaccine: given Rhogam: na LARC form signed: yes Problem list reviewed and updated with the [...] 9w 4d 138 lb (+0 oz) 109/71 -?-?-?-?-?-?-?-?-?-?-?-?- 186 -?-?-?-?-?-?-?-?-?-?-?-?- KW- CRL cons wit h dates. accepts NIPT. [facility] complications. KW- CRL cons with dates. acc epts NIPT. had last baby [facility] [employer]no complications. having significant nausea and vomiting. standing [...] (-3 lb) 98/60 Negative -?-?-?-?-?-?-?-?-?-?-?-?- Negative 148 -?-?-?-?-?-?-?-?--?-?-?-?- MH-No VB, LOF. Good FM. Some continued headache. Taking tylenol. Reviewed caffeine intake. No vision changes. Phenergan sent 04/23/25 -?-?-?-?-?-?-?-?-?-?-?-?- 21w 1d 138 lb 8 oz (+8 oz) 108/73 Negative -?-?-?-?-?-?-?-?-?-?-?-?- Negative 145 20 -?-?-?-?-?-?-?-?-?-?-?-?- KW- no vb/yves mazariegos. good fm. discussed previa and follow up US at 28 weeks. 05/20/25 -?-?-?-?-?-?-?-?-?-?-?-?- 25w 0d 145 lb 3 oz (+7 lb 3 oz) 110/72 Negative -?-?-?-?-?-?-?-?-?-?-?-?- Negative 145 25 -?-?-?-?-?-?-?-?-?-?-?-?- SM- no vb lof go od fm no reuglar ctx 06/07/25 -?-?-?-?-?-?--?-?-?-?-?-?- 27w 4d 147 lb 9 oz (+9 lb 9 oz) 112/73 -?-?-?-?-?-?-?-?-?-?-?-?- 141 27 -?-?-?-?-?-?-?-?-?-?-?-?- MH-No vB, LOF. G ood FM. Larc, 28 wk labs pending. Has US w MFM scheduled 06/22/25 -?-?-?-?-?-?-?-?-?-?-?-?- 29w 5d 152 lb 1 oz (+14 lb 1 oz) 107/72 Negative -?-?-?-?-?-?-?-?-?-?-?-?- Negative 140 30 -?-?-?-?-?-?-?-?-?-?-?-?- KW- no vb/lof/ct x. good fm. tdap today. would like BTO after delivery Title 19 signed. 07/06/25 -?-?-?-?-?-?-?-?-?-?-?-?- 31w 5d 156 lb 3 oz (+18 lb 3 oz) 112/73 Negative -?-?-?-?-?-?-?-?-?-?-?-?- Negative 165 32 -?-?-?-?-?-?-?-?-?-?-?-?- JV- no lof, vagi nal bleeding or dec fm. iron ordered for mild anemia. 07/21/25 -?-?-?-?-?-?-?-?-?-?-?-?- 33w 6d 161 lb 1 oz (+23 lb 1 oz) 108/72 Negative -?-?-?-?-?-?-?-?-?-?-?-?- Negative 155 33 -?-?-?-?-?-?-?-?-?-?-?-?- MH-No VB, LOF. G ood FM. some lower pelvic pressure-enc filippo band. States resolved w rest. ACOG First Trimester First Trimester: Desire for [...] Management Plans, Labor support person(s), Immediate Larc, Circumcision preference, Signs and Symptoms of Preeclampsia, Infant Feeding No , Education and Family Medical Leave or Disability Forms ROS Const Reports system reviewed and no additional complaints, except as documented GI Denies abdominal pain, Denies nausea and Denies vomiting Exam Const General: cooperative Nutritional Appearance: well nourished GI Palpation: soft, nontender and other (gravid) Results POC Urinalysis 2 Dip (Clinic) Office Urine Glucose Negative Last Edit by Dionne Curtis on 07/21/25 09 :45 Office Urine Protein Negative Last Edit by Dionne Curtis on 07/21/25 09 :45 Coding Level of Care Code Off vis,est,level 3 Diagnoses Supervision of high risk in third trimester O09.93 Trimester: third trimester 33 weeks gestation of Z3A.33 Weeks of gestation: 33 weeks History of miscarriage, currently O09.299 Anxiety and depression F41.9; F32.A Assessment and Plan Assessment and Plan (1) Supervision of high-risk : Status: Acute Qualifiers: Trimester: third trimester Qualified Code(s): O09.93 - Supervision of high risk , unspecified, third trimester Comment: PRR , MYRON 09/02/25,karine crenshaw PC: Nathalie BF: Johny (2) : Status: Acute Qualifiers: Weeks of gestation: 33 weeks Qualified Code(s): Z3A.33 - 33 weeks gestation of Comment: NIPT low risk (3) History of miscarriage, currently : Status: Acute Comment: x2 (4) Anxiety and depression: Status: Acute Comment: was on Lexapro - stopped awhile ago; stable Orders: Orders POC Urinalysis 2 Dip (Clinic) Today Plan problem list reviewed and updated for most current plan of care and appropriate orders placed. Relevant counseling for the gestational age appropriate provided and ACOG education checklist updated. Continue routine care and follow up. 07/21/25 1009 <Electronically signed by Aisha oleary PRODUCT APPLICATIONS SCIENTIST PRODUCT APPLICATIONS SCIENTIST-C> Date _ Aisha Vitale NP PRODUCT APPLICATIONS SCIENTIST-C Cosigner Signature: Date (if applicable) CC: ~ [facility] Work Phone: Reason for referral (narrative)No reason for referral [facility] Phone: Reason for visit Narrative* Auth/Cert (Routine) Specialty Diagnoses / Procedures Referred By Kory t Referred To Contact Diagnoses Noninfective gastroenteritis and colitis, unspecified Procedures AK COLONOSCOPY FLX DX W/COLLJ SPEC WHEN PFRMD AK COLONOSCOPY W/BIOPSY SINGLE/MULTIPLE AK COLSC FLX W/REMOVAL LESION BY HOT BX FORCEPS AK COLSC FLX W/RMVL OF TUMOR POLYP LESION SNARE TQ [address] [address] Phone: tel: [phone] fax: Referral ID Status Reason Start Date Expiration Date Visits Re quested Visits Authorized [id number] 1 1 [facility] Work Phone: Summary Purpose Family History Grandmother Name Dates Details Family history of [...] for Depo Inj. * Office Supply * [facility][NOTE 3]: [id number] * Lot# [id number] * Exp: 10/30/2022 * Site: Right Buttock [...] Contact Diagnoses Generalized anxiety disorder Radha Cary, SHEET METAL ERECTOR-SCRIPT SUPERVISOR [address] [facility] [address] [place] [address] Referral ID Status Reason Start Date Expiration Date V isits Requested Visits Authorized [id number] Pending Review 10/30/2023 10/29/2024 1 1 Specialty Diagnoses / Procedures Referred By Kory islas Referred To Contact Gastroenterology Diagnoses Colitis Procedures Colonoscopy Diagnostic AK COLONOSCOPY FLX DX W/COLLJ SPEC WHEN PFRMD AK COLONOSCOPY W/BIOPSY SINGLE/MULTIPLE AK COLSC FLX W/RMVL OF TUMOR POLYP LESION SNARE TQ AK COLSC FLX W/REMOVAL LESION BY HOT BX FORCEPS Forrest Mohr MD [address] [place] [address] Referral ID Status Reason Start Date Expiration Date V isits Requested Visits Authorized [id number] Pending Review 01/30/2024 01/29/2025 1 1 Referral ID Status Reason Start Date Expiration Date V isits Requested Visits Authorized [id number] Authorized 01/30/2024 01/29/2025 1 1 Specialty Diagnoses / Procedures Referred By Contac t Referred To Contact Radiology Diagnoses Amenorrhea Procedures US OB transvaginal Jose Delgado MD [address] [facility], [address] [place] [address] Referral ID Status Reason Start Date Expiration Date Visits Requested Visits Authorized [id number] Authorized Perform Procedure 07/06/2024 07/06/2025 1 1 [...] Supervision of high-risk April 23, 2025 10:39am Chief Complaint Admit Date Amb Documentation January 22, 2025 10: 51am HX MISSCARRIAGE January 28, 2025 8:51am NOB: LMP 11/26, MYRON 09/02February 01, 2025 12 :58pm vaginal discharge/leaking 12wk OB February 192024 2:29pm 13wk ob February 24, 2025 1:46p m 17wk ob March 25, 2025 1:31 pm 21wk ob April 23, 2025 10:3 9am RULE OUT LABER May 07, 2025 6:1 0pm Reason for Visit Admit Date Anxiety and depression February 01, 2025 12: [...] Supervision of high-risk April 23, 2025 10:39am Chief Complaint Admit Date Amb Documentation January 22, 2025 10: 51am HX MISSCARRIAGE January 28, 2025 8:51am NOB: LMP 11/26, MYRON 09/02February 01, 2025 12 :58pm vaginal discharge/leaking 12wk OB February 192024 2:29pm 13wk ob February 24, 2025 1:46p m 17wk ob March 25, 2025 1:31 pm 21wk ob April 23, 2025 10:3 9am RULE OUT LABER May 07, 2025 6:1 0pm RULE OUT LABER May 07, 2025 9:4 9pm 25 wk ob May 20, 2025 1: 50pm Reason for Visit Admit Date Anxiety and depression February 01, 2025 12: [...] Supervision of high-risk April 23, 2025 10:39am Anxiety and depression May 07, 2025 6:10pm History of miscarriage, currently pregna nt May 07, 2025 6:10pm Placenta previa May 07, 2025 6:1 0pm May 07, 2025 6:1 0pm Supervision of high-risk Augus 2024 6:10pm Vaginal discharge during Aprus 2024 6:10pm Anxiety and depression May 20, 2025 1:50pm History of miscarriage, currently pregna nt May 20, 2025 1:50pm Placenta previa May 20, 2025 1: 50pm May 20, 2025 1: 50pm Supervision of high-risk Aprus 2024 1:50pm Chief Complaint Admit Date vaginal discharge/leaking 12wk OB February 192024 2:29pm 13wk ob February 24, 2025 1:46p m 17wk ob March 25, 2025 1:31 pm 21wk ob April 23, 2025 10:3 9am RULE OUT LABER May 07, 2025 6:1 0pm RULE OUT LABER May 07, 2025 9:4 9pm 25 wk ob May 20, 2025 1: 50pm 28 WK OB/Glucose June 07, 2025 1:23pm Reason for Visit Admit Date Anxiety and depression February 19, 2025 2: [...] Supervision of high-risk April 23, 2025 10:39am Anxiety and depression May 07, 2025 6:10pm History of miscarriage, currently pregna nt May 07, 2025 6:10pm Placenta previa May 07, 2025 6:1 0pm May 07, 2025 6:1 0pm Supervision of high-risk Aprus 2024 6:10pm Vaginal discharge during Aprus 2024 6:10pm Anxiety and depression May 20, 2025 1:50pm History of miscarriage, currently pregna nt May 20, 2025 1:50pm Placenta previa May 20, 2025 1: 50pm May 20, 2025 1: 50pm Supervision of high-risk Augus 2024 1:50pm Anxiety and depression June 07 1:23pm History of miscarriage, currently pregna nt June 07, 2025 1:23pm Placenta previa June 07, 2025 1:23pm June 07, 2025 1:23pm Supervision of high-risk Septe [email or web address] 1:23pm Chief Complaint Admit Date 17wk ob March 25, 2025 1:31 pm 21wk ob April 23, 2025 10:3 9am RULE OUT LABER May 07, 2025 6:1 0pm RULE OUT LABER May 07, 2025 9:4 9pm 25 wk ob May 20, 2025 1: 50pm 28 WK OB/Glucose June 07, 2025 1:23pm 30 WK OB June 22, 2025 12:47pm Reason for Visit Admit Date Anxiety and depression March 25, 2025 1 :31pm History of miscarriage, currently pregna nt March 25, 2025 1:31pm March 25, 2025 1:31 pm Supervision of high-risk March 25, 2025 1:31pm Anxiety and depression April 23, 2025 1 0:39am History of miscarriage, currently pregna nt April 23, 2025 10:39am April 23, 2025 10:3 9am Supervision of high-risk April 23, 2025 10:39am Placenta previa April 23, 2025 10:3 9am Anxiety and depression May 07, 2025 6:10pm History of miscarriage, currently pregna nt May 07, 2025 6:10pm May 07, 2025 6:1 0pm Supervision of high-risk Augus 2024 6:10pm Placenta previa May 07, 2025 6:1 0pm Vaginal discharge during Aprus 2024 6:10pm Anxiety and depression May 20, 2025 1:50pm History of miscarriage, currently pregna nt May 20, 2025 1:50pm May 20, 2025 1: 50pm Supervision of high-risk Augus 2024 1:50pm Placenta previa May 20, 2025 1: 50pm Anxiety and depression June 07 1:23pm History of miscarriage, currently pregna nt June 07, 2025 1:23pm June 07, 2025 1:23pm Supervision of high-risk Fredi 2024 1:23pm Placenta previa June 07, 2025 1:23pm Anxiety and depression June 22, 025 12:47pm History of miscarriage, currently pregna nt June 22, 2025 12:47pm June 22, 2025 12:47pm Supervision of high-risk Fredi thapa 2024 12:47pm Chief Complaint Admit Date 17wk ob March 25, 2025 1:31 pm 21wk ob April 23, 2025 10:3 9am RULE OUT LABER May 07, 2025 6:1 0pm RULE OUT LABER May 07, 2025 9:4 9pm 25 wk ob May 20, 2025 1: 50pm 28 WK OB/Glucose June 07, 2025 1:23pm 30 WK OB June 22, 2025 12:47pm 31 WK 5B OB July 06, 2025 9: 44am Reason for Visit Admit Date Anxiety and depression March 25, 2025 1 :31pm History of miscarriage, currently pregna nt March 25, 2025 1:31pm March 25, 2025 1:31 pm Supervision of high-risk March 25, 2025 1:31pm Anxiety and depression April 23, 2025 1 0:39am History of miscarriage, currently pregna nt April 23, 2025 10:39am April 23, 2025 10:3 9am Supervision of high-risk April 23, 2025 10:39am Placenta previa April 23, 2025 10:3 9am Anxiety and depression May 07, 2025 6:10pm History of miscarriage, currently pregna nt May 07, 2025 6:10pm May 07, 2025 6:1 0pm Supervision of high-risk Augus 2024 6:10pm Placenta previa May 07, 2025 6:1 0pm Vaginal discharge during Aprus 2024 6:10pm Anxiety and depression May 20, 2025 1:50pm History of miscarriage, currently pregna nt May 20, 2025 1:50pm May 20, 2025 1: 50pm Supervision of high-risk Augus t 2024 1:50pm Placenta previa May 20, 2025 1: 50pm Anxiety and depression June 07 1:23pm History of miscarriage, currently pregna nt June 07, 2025 1:23pm June 07, 2025 1:23pm Supervision of high-risk Septe mber 2024 1:23pm Placenta previa June 07, 2025 1:23pm Anxiety and depression June 22, 025 12:47pm History of miscarriage, currently pregna nt June 22, 2025 12:47pm June 22, 2025 12:47pm Supervision of high-risk Septe mber 2024 12:47pm Anxiety and depression July 06, 2025 9:44am History of miscarriage, currently pregna nt July 06, 2025 9:44am July 06, 2025 9: 44am Supervision of high-risk Octob er 2024 9:44am Chief Complaint Admit Date 21wk ob April 23, 2025 10:3 9am RULE OUT LABER May 07, 2025 6:1 0pm RULE OUT LABER May 07, 2025 9:4 9pm 25 wk ob May 20, 2025 1: 50pm 28 WK OB/Glucose June 07, 2025 1:23pm 30 WK OB June 22, 2025 12:47pm 31 WK 5B OB July 06, 2025 9: 44am 33 WK 6D OB July 21, 2025 9 :36am DECREASED MOVEMENT/R/O SROM Novemb er 2024 12:03pm DECREASED MOVEMENT/R/O SROM Novemb er 2024 1:55pm 36wk ob August 05, 2025 1 2:54pm 37wk ob August 09, 2025 9:02am Reason for Visit Admit Date Anxiety and depression April 23, 2025 1 0:39am History of miscarriage, currently pregna nt April 23, 2025 10:39am April 23, 2025 10:3 9am Supervision of high-risk April 23, 2025 10:39am Placenta previa April 23, 2025 10:3 9am Anxiety and depression May 07, 2025 6:10pm History of miscarriage, currently pregna nt May 07, 2025 6:10pm May 07, 2025 6:1 0pm Supervision of high-risk Augus t 2024 6:10pm Placenta previa May 07, 2025 6:1 0pm Vaginal discharge during Augus t 2024 6:10pm Anxiety and depression May 20, 2025 1:50pm History of miscarriage, currently pregna nt May 20, 2025 1:50pm May 20, 2025 1: 50pm Supervision of high-risk Augus t 2024 1:50pm Placenta previa May 20, 2025 1: 50pm Anxiety and depression June 07 1:23pm History of miscarriage, currently pregna nt June 07, 2025 1:23pm June 07, 2025 1:23pm Supervision of high-risk Septe [id number] 1:23pm Placenta previa June 07, 2025 1:23pm Anxiety and depression June 22, 025 12:47pm History of miscarriage, currently pregna nt June 22, 2025 12:47pm June 22, 2025 12:47pm Supervision of high-risk Septe mber 2024 12:47pm Anxiety and depression July 06, 2025 9:44am History of miscarriage, currently pregna nt July 06, 2025 9:44am July 06, 2025 9: 44am Supervision of high-risk Octob er 2024 9:44am Anxiety and depression July 21 9:36am History of miscarriage, currently pregna nt July 21, 2025 9:36am July 21, 2025 9 :36am Supervision of high-risk Octob er 2024 9:36am Anxiety and depression August 05 12:54pm History of miscarriage, currently pregna nt August 05, 2025 12:54pm August 05, 2025 1 2:54pm Supervision of high-risk Novem 2024 12:54pm Anxiety and depression August 09 9:02am History of miscarriage, currently pregna nt August 09, 2025 9:02am August 09, 2025 9:02am Supervision of high-risk Novem 2024 9:02am Uterine size-date discrepancy, third tri mester August 09, 2025 9:02am Additional Source Comments INFORMATION SOURCE (unrecogn ized section and content) DATE CREATED AUTHOR 05/20/2019 [facility] DATE CREATED AUTHOR AUTHOR'S ORGANIZ ATION 11/06/2022 [employer] DATE CREATED AUTHOR AUTHOR'S ORGANIZ ATION 01/01/2023 [facility] DATE CREATED AUTHOR AUTHOR'S ORGANIZ ATION 03/08/2023 [facility] DATE CREATED AUTHOR AUTHOR'S ORGANIZ ATION 07/09/2024 [facility] DATE CREATED AUTHOR AUTHOR'S ORGANIZ ATION 01/16/2025 [facility] DATE CREATED AUTHOR AUTHOR'S ORGANIZ ATION 02/07/2025 [facility] DATE CREATED AUTHOR AUTHOR'S ORGANIZ ATION 02/10/2025 [facility] DATE CREATED AUTHOR AUTHOR'S ORGANIZ ATION 06/15/2025 [facility] DATE CREATED AUTHOR AUTHOR'S ORGANIZ ATION 08/09/2025 [facility] <item><item><item><item><item> Privacy Markings (unrecogniz ed section and [...] Team Status: Active Member Role Status Dates CONCEPCION Caballero Primary Care Provider Active Team Status: Inactive Member Role Status Dates CONCEPCION Caballero Primary Care Provider Active Dr. Meena Us MD Attending Provider Active Claim Investigator Relationship Specialty Start Date End Date Radha Cary, SHEET METAL ERECTOR-SCRIPT SUPERVISOR [address] [address] PCP - General Family Medicine 12/31/22 Claim Investigator Relationship Specialty Start Date End Date Radha Cary, SHEET METAL ERECTOR-[facility] [address] [facility] [address] [place] [address] PCP - General Family Medicine 12/31/22 Claim Investigator Relationship Specialty Start Date End Date Radha Cary, SHEET METAL ERECTOR-[facility] [address] [place] [address] PCP - General Family Medicine 12/31/22 Claim Investigator Relationship Specialty Start Date End Date Forrest Mohr MD [address] [place] [address] PCP - General Internal Medicine 01/30/24 Claim Investigator Relationship Specialty Start Date End Date Radha Cary, SHEET METAL ERECTOR-SCRIPT SUPERVISOR [address] [address] PCP - General Family Medicine 01/31/24 Forrest Mohr MD [address] [place] [address] Surgeon Internal Medicine 01/30/24 Claim Investigator Relationship Specialty Start Date End Date Forrest Mohr MD [address] [place] [address] PCP - General Internal Medicine 03/12/24 Forrest Mohr MD [address] [place] [address] Surgeon Internal Medicine 01/30/24 Claim Investigator Relationship Specialty Start Date End Date Radha Cary CNP [address] [place] [address] PCP - General Internal Medicine 06/12/24 Claim Investigator Relationship Specialty Start Date End Date Forrest Mohr MD [address] [address] PCP - General Internal Medicine 03/12/24 Forrest Mohr MD [address] [facility] [place] [address] Surgeon Internal Medicine 01/30/24 Claim Investigator Relationship Specialty Start Date End Date Forrest Mohr MD [address] [facility] [place] [address] PCP - General Internal Medicine 03/12/24 Forrest Mohr MD [address] [facility] [place] [address] Surgeon Internal Medicine 01/30/24 Team Status: Inactive Member Role Status Dates CONCEPCION Caballero Primary Care Provider Active Start: January 05, 2025 End: January 05, 2025 CONCEPCION Caballero Referring Provider Active Sta rt: January 05, 2025 End: January 05, 2025 Dr. Meena Us MD Attending Provider Active Start: January 05, 2025 End: January 05, 2025 Team Status: Active Member Role Status Dates CONCEPCION Caballero Primary Care Provider Active Start: January 22, 2025 Tamar Chan , DONNELL Attending Provider Active St art: January 22, 2025 Team Status: Inactive Member Role Status Dates CONCEPCION Caballero Primary Care Provider Active Start: January 28, 2025 End: January 28, 2025 Mariajose Ayala CNM Attending Provider Active S tart: January 28, 2025 End: January 28, 2025 Mariajose Ayala CNM Referring Provider Active S tart: January 28, 2025 End: January 28, 2025 Team Status: Inactive Member Role Status Nicolle Cary PRODUCT APPLICATIONS SCIENTIST-C Primary Care Provider Active Start: February 01, 2025 End: February 01, 2025 Radha Cary PRODUCT APPLICATIONS SCIENTIST-C Referring Provider Active Sta rt: February 01, 2025 End: February 01, 2025 Mariajose Ayala CNM Attending Provider Active S tart: February 01, 2025 End: February 01, 2025 Team Status: Inactive Member Role Status Nicolle Cary PRODUCT APPLICATIONS SCIENTIST-C Primary Care Provider Active Start: February 01, 2025 End: February 01, 2025 Mariajose Ayala CNM Attending Provider Active S tart: February 01, 2025 End: February 01, 2025 Mariajose Ayala CNM Referring Provider Active S tart: February 01, 2025 End: February 01, 2025 Team Status: Inactive Member Role Status Nicolle Cary PRODUCT APPLICATIONS SCIENTIST-C Primary Care Provider Active Start: February 19, 2025 End: February 19, 2025 Radha Cary PRODUCT APPLICATIONS SCIENTIST-C Referring Provider Active Sta rt: February 19, 2025 End: February 19, 2025 Dr. Colleen Villalobos , DO Attending Provider Activ e Start: February 19, 2025 End: February 19, 2025 Team Status: Inactive Member Role Status Nicolle Cary PRODUCT APPLICATIONS SCIENTIST-C Primary Care Provider Active Start: February 24, 2025 End: February 24, 2025 Radha Cary PRODUCT APPLICATIONS SCIENTIST-C Referring Provider Active Sta rt: February 24, 2025 End: February 24, 2025 Dr. Colleen Villalobos , DO Attending Provider Activ e Start: February 24, 2025 End: February 24, 2025 Team Status: Active Member Role Status Nicolle Cary PRODUCT APPLICATIONS SCIENTIST-C Primary Care Provider Active Start: February 24, 2025 Dr. Colleen Villalobos , DO Attending Provider Activ e Start: February 24, 2025 Dr. Colleen Villalobos , DO Referring Provider Activ e Start: February 24, 2025 Team Status: Inactive Member Role Status Nicolle Cary PRODUCT APPLICATIONS SCIENTIST-C Primary Care Provider Active Start: February 24, 2025 End: February 24, 2025 Dr. Colleen Villalobos DO Attending Provider Activ e Start: February 24, 2025 End: February 24, 2025 Dr. Colleen Villalobos DO Referring Provider Activ e Start: February 24, 2025 End: February 24, 2025 Team Status: Inactive Member Role Status Nicolle Cary PRODUCT APPLICATIONS SCIENTIST-C Primary Care Provider Active Start: March 25, 2025 End: March 25, 2025 Radha Cary PRODUCT APPLICATIONS SCIENTIST-C Referring Provider Active Sta rt: March 25, 2025 End: March 25, 2025 Aisha Vitale NP, PRODUCT APPLICATIONS SCIENTIST-C Attending Provider Active Start: March 25, 2025 End: March 25, 2025 Team Status: Active Member Role/Relationship Status Nicolle Cary PRODUCT APPLICATIONS SCIENTIST-C Primary Care Provider Active Team Status: Inactive Member Role/Relationship Status Nicolle Cary PRODUCT APPLICATIONS SCIENTIST-C Primary Care Provider Active Start: January 05, 2025 End: January 05, 2025 Radha Cary PRODUCT APPLICATIONS SCIENTIST-C Referring Provider Active Sta rt: January 05, 2025 End: January 05, 2025 Dr. Meena Us MD Attending Provider Active Start: January 05, 2025 End: January 05, 2025 Team Status: Active Member Role/Relationship Status Nicolle Cary PRODUCT APPLICATIONS SCIENTIST-C Primary Care Provider Active Start: January 22, 2025 Tamar Chan RN Attending Provider Active St art: January 22, 2025 Team Status: Inactive Member Role/Relationship Status Nicolle Cary PRODUCT APPLICATIONS SCIENTIST-C Primary Care Provider Active Start: January 28, 2025 End: January 28, 2025 Mariajose Ayala CNM Attending Provider Active S tart: January 28, 2025 End: January 28, 2025 Mariajose Ayala CNM Referring Provider Active S tart: January 28, 2025 End: January 28, 2025 Team Status: Inactive Member Role/Relationship Status Nicolle Cary PRODUCT APPLICATIONS SCIENTIST-C Primary Care Provider Active Start: February 01, 2025 End: February 01, 2025 Radha Cary NP-C Referring Provider Active Sta rt: February 01, 2025 End: February 01, 2025 Mariajose Ayala CNM Attending Provider Active S tart: February 01, 2025 End: February 01, 2025 Team Status: Inactive Member Role/Relationship Status Nicolle Cary NP-C Primary Care Provider Active Start: February 01, 2025 End: February 01, 2025 Mariajose Ayala CNM Attending Provider Active S tart: February 01, 2025 End: February 01, 2025 Mariajose Ayala CNM Referring Provider Active S tart: February 01, 2025 End: February 01, 2025 Team Status: Inactive Member Role/Relationship Status Nicolle Cary PRODUCT APPLICATIONS SCIENTIST-C Primary Care Provider Active Start: February 19, 2025 End: February 19, 2025 Radha Cary PRODUCT APPLICATIONS SCIENTIST-C Referring Provider Active Sta rt: February 19, 2025 End: February 19, 2025 Dr. Colleen Villalobos , Attending Provider Activ e Start: February 19, 2025 End: February 19, 2025 Team Status: Inactive Member Role/Relationship Status Nicolle Cary PRODUCT APPLICATIONS SCIENTIST-C Primary Care Provider Active Start: February 24, 2025 End: February 24, 2025 Radha Cary PRODUCT APPLICATIONS SCIENTIST-C Referring Provider Active Sta rt: February 24, [...] Cary NP-C Primary Care Provider Active Start: March 25, 2025 End: March 25, 2025 Radha Cary NP-C Referring Provider Active Sta rt: March 25, 2025 End: March 25, 2025 Aisha Vitale NP PRODUCT APPLICATIONS SCIENTIST-C Attending Provider Active Start: March 25, 2025 End: March 25, 2025 Team Status: Inactive Member Role/Relationship Status Nicolle Cary PRODUCT APPLICATIONS SCIENTIST-C Primary Care Provider Active Start: April 23, 2025 End: April 23, 2025 Radha Cary PRODUCT APPLICATIONS SCIENTIST-C Referring Provider Active Sta rt: April 23, 2025 End: April 23, 2025 Mariajose Jamie , CNM Attending Provider Active S tart: April 23, 2025 End: April 23, 2025 Team Status: Active Member Role/Relationship Status Dates Radha Cary PRODUCT APPLICATIONS SCIENTIST-C Primary Care Provider Active Start: January 22, 2025 Tamar Chan RN Attending Provider Active St art: January 22, 2025 Team Status: Inactive Member Role/Relationship Status Nicolle Cary PRODUCT APPLICATIONS SCIENTIST-C Primary Care Provider Active Start: January 28, 2025 End: January 28, 2025 Mariajose Ayala CNM Attending Provider Active S tart: January 28, 2025 End: January 28, 2025 Mariajose Ayala CNM Referring Provider Active S tart: January 28, 2025 End: January 28, 2025 Team Status: Inactive Member Role/Relationship Status Nicolle Cary PRODUCT APPLICATIONS SCIENTIST-C Primary Care Provider Active Start: February 01, 2025 End: February 01, 2025 Radha Cary PRODUCT APPLICATIONS SCIENTIST-C Referring Provider Active Sta rt: February 01, 2025 End: February 01, 2025 Mariajose Ayala CNM Attending Provider Active S tart: February 01, 2025 End: February 01, 2025 Team Status: Inactive Member Role/Relationship Status Nicolle Cary PRODUCT APPLICATIONS SCIENTIST-C Primary Care Provider Active Start: February 01, 2025 End: February 01, 2025 Mariajose Ayala CNM Attending Provider Active S tart: February 01, 2025 End: February 01, 2025 Mariajose Ayala CNM Referring Provider Active S tart: February 01, 2025 End: February 01, 2025 Team Status: Inactive Member Role/Relationship Status Nicolle Cary PRODUCT APPLICATIONS SCIENTIST-C Primary Care Provider Active Start: February 19, 2025 End: February 19, 2025 Radha Cary PRODUCT APPLICATIONS SCIENTIST-C Referring Provider Active Sta rt: February 19, 2025 End: February 19, 2025 Dr. Colleen Villalobos , DO Attending Provider Activ e Start: February 19, 2025 End: February 19, 2025 Team Status: Inactive Member Role/Relationship Status Nicolle Cary PRODUCT APPLICATIONS SCIENTIST-C Primary Care Provider Active Start: February 24, 2025 End: February 24, 2025 Radha Cary PRODUCT APPLICATIONS SCIENTIST-C Referring Provider Active Sta rt: February 24, 2025 End: February 24, 2025 Dr. Colleen Villalobos , Attending Provider Activ e Start: February 24, 2025 End: February 24, 2025 Team Status: Inactive Member Role/Relationship Status Nicolle Cary PRODUCT APPLICATIONS SCIENTIST-C Primary Care Provider Active Start: February 24, 2025 End: February 24, 2025 Dr. Colleen Villalobos , Attending Provider Activ e Start: February 24, 2025 End: February 24, 2025 Dr. Colleen Villalobos , Referring Provider Activ e Start: February 24, 2025 End: February 24, 2025 Team Status: Inactive Member Role/Relationship Status Nicolle Cary PRODUCT APPLICATIONS SCIENTIST-C Primary Care Provider Active Start: March 25, 2025 End: March 25, 2025 Radha Cary PRODUCT APPLICATIONS SCIENTIST-C Referring Provider Active Sta rt: March 25, 2025 End: March 25, 2025 Aisha Vitale NP, PRODUCT APPLICATIONS SCIENTIST-C Attending Provider Active Start: March 25, 2025 End: March 25, 2025 Team Status: Inactive Member Role/Relationship Status Nicolle Cary PRODUCT APPLICATIONS SCIENTIST-C Primary Care Provider Active Start: April 23, 2025 End: April 23, 2025 Radha Cary PRODUCT APPLICATIONS SCIENTIST-C Referring Provider Active Sta rt: April 23, 2025 End: April 23, 2025 Mariajose Ayala CNM Attending Provider Active S tart: April 23, 2025 End: April 23, 2025 Team Status: Inactive Member Role/Relationship Status Nicolel Cary NP-C Primary Care Provider Active Start: May 07, 2025 End: May 07, 2025 Mariajose Ayala CNM Attending Provider Active S tart: May 07, 2025 End: May 07, 2025 Mariajose Ayala CNM Referring Provider Active S tart: May 07, 2025 End: May 07, 2025 Team Status: Active Member Role/Relationship Status Nicolle Cary PRODUCT APPLICATIONS SCIENTIST-C Primary Care Provider Active Start: May 07, 2025 Mariajose Ayala CNM Attending Provider Active S tart: May 07, 2025 Mariajose Ayala CNM Referring Provider Active S tart: May 07, 2025 Mariajose Ayala CNM Other Provider Active Start : May 07, 2025 Team Status: Inactive Member Role/Relationship Status Nicolle Cary PRODUCT APPLICATIONS SCIENTIST-C Primary Care Provider Active Start: May 20, 2025 End: May 20, 2025 Radha Cary PRODUCT APPLICATIONS SCIENTIST-C Referring Provider Active Sta rt: May 20, 2025 End: May 20, 2025 Dr. Meena Us MD Attending Provider Active Start: May 20, 2025 End: May 20, 2025 Team Status: Inactive Member Role/Relationship Status ELAINE UsC Primary Care Provider Active Start: February 19, 2025 End: February 19, 2025 ELAINE CaballeroC Referring Provider Active Sta rt: February 19, 2025 End: February 19, 2025 Dr. Colleen Villalobos , Attending Provider Activ e Start: February 19, 2025 End: February 19, 2025 Team Status: Inactive Member Role/Relationship Status ELAINE UsC Primary Care Provider Active Start: February 24, 2025 End: February 24, 2025 ELAINE CaballeroC Referring Provider Active Sta rt: February 24, 2025 End: February 24, 2025 Dr. Colleen Villalobos , Attending Provider Activ e Start: February 24, 2025 End: February 24, 2025 Team Status: Inactive Member Role/Relationship Status ELAINE UsC Primary Care Provider Active Start: February 24, 2025 End: February 24, 2025 Dr. Colleen Villalobos , Attending Provider Activ e Start: February 24, 2025 End: February 24, 2025 Dr. Colleen Villalobos , Referring Provider Activ e Start: February 24, 2025 End: February 24, 2025 Team Status: Inactive Member Role/Relationship Status ELAINE UsC Primary Care Provider Active Start: March 25, 2025 End: March 25, 2025 ELAINE CaballeroC Referring Provider Active Sta rt: March 25, 2025 End: March 25, 2025 Aisha Vitale NP PRODUCT APPLICATIONS SCIENTIST-C Attending Provider Active Start: March 25, 2025 End: March 25, 2025 Team Status: Inactive Member Role/Relationship Status ELAINE UsC Primary Care Provider Active Start: April 23, 2025 End: April 23, 2025 ELAINE CaballeroC Referring Provider Active Sta rt: April 23, 2025 End: April 23, 2025 Mariajose Ayala CNM Attending Provider Active S tart: April 23, 2025 End: April 23, 2025 Team Status: Inactive Member Role/Relationship Status Nicolle Cary PRODUCT APPLICATIONS SCIENTIST-C Primary Care Provider Active Start: May 07, 2025 End: May 07, 2025 Mariajose Ayala CNM Attending Provider Active S tart: May 07, 2025 End: May 07, 2025 Mariajose Ayala CNM Referring Provider Active S tart: May 07, 2025 End: May 07, 2025 Team Status: Active Member Role/Relationship Status Nicolle Cary NP-C Primary Care Provider Active Start: May 07, 2025 Mariajose Ayala CNM Attending Provider Active S tart: May 07, 2025 Mariajose Ayala CNM Referring Provider Active S tart: May 07, 2025 Mariajose Ayala CNM Other Provider Active Start : May 07, 2025 Team Status: Inactive Member Role/Relationship Status ELAINE UsC Primary Care Provider Active Start: May 20, 2025 End: May 20, 2025 ELAINE CaballeroC Referring Provider Active Sta rt: May 20, 2025 End: May 20, 2025 Dr. Meena Us MD Attending Provider Active Start: May 20, 2025 End: May 20, 2025 Team Status: Active Member Role/Relationship Status CONCEPCION Us Primary Care Provider Active Start: June 07, 2025 Dr. Meena Us MD Attending Provider Active Start: June 07, 2025 Dr. Meena Us MD Referring Provider Active Start: June 07, 2025 Team Status: Inactive Member Role/Relationship Status CONCEPCION Us Primary Care Provider Active Start: June 07, 2025 End: June 07, 2025 CONCEPCION Caballero Referring Provider Active Sta rt: June 07, 2025 End: June 07, 2025 Aisha Vitale NP, PRODUCT APPLICATIONS SCIENTIST-C Attending Provider Active Start: June 07, 2025 End: June 07, 2025 Team Status: Active Member Role/Relationship Status CONCEPCION Us Primary care physician Active Team Status: Inactive Member Role/Relationship Status CONCEPCION Us Primary care physician Active Start: March 25, 2025 End: March 25, 2025 ELAINE CaballeroC Referring Provider Active Sta rt: March 25, 2025 End: March 25, 2025 Aisha Vitale NP, PRODUCT APPLICATIONS SCIENTIST-C Attending physician Active Start: March 25, 2025 End: March 25, 2025 Team Status: Inactive Member Role/Relationship Status CONCEPCION Us Primary care physician Active Start: April 23, 2025 End: April 23, 2025 CONCEPCION Caballero Referring Provider Active Sta rt: April 23, 2025 End: April 23, 2025 Mariajose Ayala CNM Attending physician Active Start: April 23, 2025 End: April 23, 2025 Team Status: Inactive Member Role/Relationship Status Dates CONCEPCION Caballero Primary care physician Active Start: May 07, 2025 End: May 07, 2025 Mariajose Ayala CNM Attending physician Active Start: May 07, 2025 End: May 07, 2025 Mariajose Ayala CNM Referring Provider Active S tart: May 07, 2025 End: May 07, 2025 Team Status: Active Member Role/Relationship Status CONCEPCION Us Primary care physician Active Start: May 07, 2025 Mariajose Ayala CNM Attending physician Active Start: May 07, 2025 Mariajose Ayala CNM Referring Provider Active S tart: May 07, 2025 Mariajose Ayala CNM Nurse Practitioner Active S tart: May 07, 2025 Team Status: Inactive Member Role/Relationship Status CONCEPCION Us Primary care physician Active Start: May 20, 2025 End: May 20, 2025 CONCEPCION Caballero Referring Provider Active Sta rt: May 20, 2025 End: May 20, 2025 Dr. Meena Us MD Attending physician Active Start: May 20, 2025 End: May 20, 2025 Team Status: Inactive Member Role/Relationship Status CONCEPCION Us Primary care physician Active Start: June 07, 2025 End: June 07, 2025 Dr. Meena Us MD Attending physician Active Start: June 07, 2025 End: June 07, 2025 Dr. Meena Us MD Referring Provider Active Start: June 07, 2025 End: June 07, 2025 Team Status: Inactive Member Role/Relationship Status CONCEPCION Us Primary care physician Active Start: June 07, 2025 End: June 07, 2025 CONCEPCION Caballero Referring Provider Active Sta rt: June 07, 2025 End: June 07, 2025 Aisha Vitale NP, PRODUCT APPLICATIONS SCIENTIST-C Attending physician Active Start: June 07, 2025 End: June 07, 2025 Team Status: Inactive Member Role/Relationship Status Dates CONCEPCION Caballero Primary care physician Active Start: June 22, 2025 End: June 22, 2025 CONCEPCION Caballero Referring Provider Active Sta rt: June 22, 2025 End: June 22, 2025 Mariajose Ayala CNM Attending physician Active Start: June 22, 2025 End: June 22, 2025 Team Status: Inactive Member Role/Relationship Status Dates CONCEPCION Caballero Primary care physician Active Start: July 06, 2025 End: July 06, 2025 CONCEPCION Caballero Referring Provider Active Sta rt: July 06, 2025 End: July 06, 2025 Dr. Colleen Villalobos , Attending physician Acti ve Start: July 06, 2025 End: July 06, 2025 Claim Investigator Relationship Specialty Start Date End Date Radha Cary, SHEET METAL ERECTOR-SCRIPT SUPERVISOR [address] [facility] [address] [place] [address] PCP - General Family Medicine 01/31/24 03/11/24 Forrest Mohr MD [address] [facility] [address] Surgeon Internal Medicine 01/30/24 Team Status: Inactive Member Role/Relationship Status Dates CONCEPCION Caballero Primary care physician Active Start: April 23, 2025 End: April 23, 2025 CONCEPCION Caballero Referring Provider Active Sta rt: April 23, 2025 End: April 23, 2025 Mariajose Ayala CNM Attending physician Active Start: April 23, 2025 End: April 23, 2025 Team Status: Inactive Member Role/Relationship Status Dates CONCEPCION Caballero Primary care physician Active Start: May 07, 2025 End: May 07, 2025 Mariajose Ayala CNM Attending physician Active Start: May 07, 2025 End: May 07, 2025 Mariajose Ayala CNM Referring Provider Active S tart: May 07, 2025 End: May 07, 2025 Team Status: Active Member Role/Relationship Status Dates Radha Cary , PRODUCT APPLICATIONS SCIENTIST-C Primary care physician Active Start: May 07, 2025 Mariajose Ayala CNM Attending physician Active Start: May 07, 2025 Mariajose Ayala CNM Referring Provider Active S tart: May 07, 2025 Mariajose Ayala CNM Nurse Practitioner Active S tart: May 07, 2025 Team Status: Inactive Member Role/Relationship Status Dates Radha Cary NP-C Primary care physician Active Start: May 20, 2025 End: May 20, 2025 Radha Cary NP-C Referring Provider Active Sta rt: May 20, 2025 End: May 20, 2025 Dr. Meena Us MD Attending physician Active Start: May 20, 2025 End: May 20, 2025 Team Status: Inactive Member Role/Relationship Status Dates ELAINE CaballeroC Primary care physician Active Start: June 07, 2025 End: June 07, 2025 Dr. Meena Us MD Attending physician Active Start: June 07, 2025 End: June 07, 2025 Dr. Meena Us MD Referring Provider Active Start: June 07, 2025 End: June 07, 2025 Team Status: Inactive Member Role/Relationship Status Dates ELAINE CaballeroC Primary care physician Active Start: June 07, 2025 End: June 07, 2025 aRdha Cary PRODUCT APPLICATIONS SCIENTIST-C Referring Provider Active Sta rt: June 07, 2025 End: June 07, 2025 Aisha Vitale NP PRODUCT APPLICATIONS SCIENTIST-C Attending physician Active Start: June 07, 2025 End: June 07, 2025 Team Status: Inactive Member Role/Relationship Status Dates Radha Cary NP-C Primary care physician Active Start: June 22, 2025 End: June 22, 2025 Radha Cary NP-C Referring Provider Active Sta rt: June 22, 2025 End: June 22, 2025 Mariajose Ayala CNM Attending physician Active Start: June 22, 2025 End: June 22, 2025 Team Status: Inactive Member Role/Relationship Status Dates Radha Cary NP-C Primary care physician Active Start: July 06, 2025 End: July 06, 2025 Radha Cary PRODUCT APPLICATIONS SCIENTIST-C Referring Provider Active Sta rt: July 06, 2025 End: July 06, 2025 Dr. Colleen Villalobos DO Attending physician Acti ve Start: July 06, 2025 End: July 06, 2025 Team Status: Inactive Member Role/Relationship Status Dates CONCEPCION Caballero Primary care physician Active Start: July 21, 2025 End: July 21, 2025 CONCEPCION Caballero Referring Provider Active Sta rt: July 21, 2025 End: July 21, 2025 Aisha Vitale NP PRODUCT APPLICATIONS SCIENTIST-C Attending physician Active Start: July 21, 2025 End: July 21, 2025 Team Status: Inactive Member Role/Relationship Status CONCEPCION Us Primary care physician Active Start: August 04, 2025 End: August 04, 2025 Dr. Meena Us MD Attending physician Active Start: August 04, 2025 End: August 04, 2025 Dr. Meena Us MD Referring Provider Active Start: August 04, 2025 End: August 04, 2025 Team Status: Active Member Role/Relationship Status CONCEPCION Us Primary care physician Active Start: August 04, 2025 Dr. Meena Us MD Attending physician Active Start: August 04, 2025 Dr. Meena Us MD Referring Provider Active Start: August 04, 2025 Dr. Meena Us MD Nurse Practitioner Active Start: August 04, 2025 Team Status: Inactive Member Role/Relationship Status Dates CONCEPCION Caballero Primary care physician Active Start: August 05, 2025 End: August 05, 2025 CONCEPCION Caballero Referring Provider Active Sta rt: August 05, 2025 End: August 05, 2025 Dr. Meena Us MD Attending physician Active Start: August 05, 2025 End: August 05, 2025 Team Status: Active Member Role/Relationship Status CONCEPCION Us Primary care physician Active Start: August 05, 2025 Dr. Meena Us MD Attending physician Active Start: August 05, 2025 Team Status: Inactive Member Role/Relationship Status CONCEPCION Us Primary care physician Active Start: August 09, 2025 End: August 09, 2025 CONCEPCION Caballero Referring Provider Active Sta rt: August 09, 2025 End: August 09, 2025 Mariajose Ayala CNM Attending physician Active Start: August 09, 2025 End: August 09, 2025 Goals (unrecognized section and content) Type Care Experience Labor Preferences-CB /BF classes: nolabor support person: Radha intervention preferences: []pain management options preferred: epiduralcut cord/dad catch: yesbreastfeeding: yesPP control planned: yesdiscussed possible routes of delivery and associated risks: []special requests: [] Type Detail Care Experience svdLabor Preferences -CB/BF classes: nolabor support person: Radha intervention preferences: []pain management options preferred: epiduralcut cord/dad catch: yesbreastfeeding: yesPP control planned: yesdiscussed possible routes of delivery and associated risks: []special requests: [] Reason for Visit (unrecogniz ed section and [...] STOOL Specialty Diagnoses / Procedures Referred By Contshital t Referred To Contact Diagnoses Noninfective gastroenteritis and colitis, unspecified Procedures AK COLONOSCOPY FLX DX W/COLLJ SPEC WHEN PFRMD AK COLONOSCOPY W/BIOPSY SINGLE/MULTIPLE AK COLSC FLX W/REMOVAL LESION BY HOT BX FORCEPS AK COLSC FLX W/RMVL OF TUMOR POLYP LESION SNARE [id number] [address] [facility] [address] [place] [address] [phone] Referral ID Status Reason Start Date Expiration Date Visits Re quested Visits Authorized [id number] 1 1 Reason Comments Amenorrhea Patient is [...] or prosecute any alcohol or drug abuse patient.[facility] [place] FOR RECORDS PERTAINING TO PATIENTS WHO ARE [...] BE BASED ON THE PRIMARY CLINICAL RECORDS. [employer] [facility]. provides no warranty or guarantee of the accuracy or completeness of information in this document.
[2025-08-15 11:02] VITALS: BP 120/76; PULSE 100; PULSE 104; RESP 16; TEMP 36.9; O2SAT 98
[2025-08-15 11:10] VITALS: BMI 27.4
--- NOTE | 2025-08-15 11:16 | US_ITS ---
PROCEDURE: OB BIOPHYSICAL PROF W/O NST 08/15/2025 REASON FOR EXAM: Nonreactive nonstress test TECHNIQUE: Procedure Code: USBIOWO Modality: US Procedure: OB BIOPHYSICAL PROF W/O NST COMPARISON: None FINDINGS Single live intrauterine in cephalic presentation with heart rate of 144 beats per minute. Placenta is anterior, not low lying, grade 2 MIKE measures 9.2 cm with largest pocket measuring 5.6 cm. Biophysical profile: 2/2 for breathing movements, gross body movements, tone, and amniotic fluid US/OB Biophysical Prof W/O NST IMPRESSION: Normal biophysical profile score of 8/8 Reading Location: [id number]
[2025-08-15 11:46] LABS: Hematocrit 31.5 % (37-47); Hemoglobin 10.2 g/dL (12.0-15.0); Immature Granulocytes Count 0.060 X10^3/uL (0.0-0.0); Mean Corp Hgb Conc 32.4 g/dL (32-36); Mean Corpuscular Volume 84.2 fL (81-99); Mean Platelet Vol. 11.7 fl (6.2-12.0); NRBC Flagged by Analyzer 0 % (0-5); Platelet Count 178 K/mm3 (150-450); RBC Distribution Width CV 14.1 % (11.6-14.6); RBC Distribution Width SD 43.0 fl (35.1-43.9); Red Blood Count 3.74 M/mm3 (4.2-5.4); White Blood Count 6.6 K/mm3 (4.4-11.0)
[2025-08-15 13:06] LABS: AST(SGOT) 28 U/L (<=31); Alanine Aminotransfer ALT/SGPT 33 U/L (<=34); Albumin, Serum 3.4 g/dL (3.5-5.0); Alkaline Phosphatase 270 U/L (35-104); Anion Gap 13 (5-15); BUN 6 mg/dL (4-19); BUN/Creat Ratio 12.8 RATIO (10-20); Calcium,Total 9.2 mg/dL (7.6-11.0); Carbon Dioxide 20.4 mmol/L (21.0-32.0); Chloride 103 mmol/L (98-108); Estimated Creatinine Clearance 176.16 ml/min (50-250); Globulin 3.4 g/dL (2.2-4.2); Glucose 139 mg/dL (70-99); Potassium 3.9 mmol/L (3.3-5.1)
--- NOTE | 2025-08-16 03:15 | OB.TRI.PN ---
Progress Notes Date of Service: 08/15/25 Progress Note: Patient presents for triage evaluation secondary to sudden onset of pruritus at 37.3 weeks gestation FHT: 135 Moderate variability reactive no decelerations category I tracing [place]: no Contractions Assessment and plan: labs reviewed and normal, BPP 05/07, Reactive NST, Discussed plan of care with dr obregon and agrees with reassuring maternal and status patient discharged to home to follow-up in office, will have another BPP this week. See problem list details for additional plan information. Laboratory Studies: Laboratory Tests 08/15/25 Range/Units 11:35 WBC 6.6 (4.4-11.0) K/mm3 RBC 3.74 L (4.2-5.4) M/mm3 Hgb 10.2 L (12.0-15.0) g/dL Hct 31.5 L (37-47) % MCV 84.2 (81-99) fL MCH 27.3 (27.0-32.0) pg MCHC 32.4 (32-36) g/dL RDW Std Deviation 43.0 (35.1-43.9) fl RDW Coeff of Faith 14.1 (11.6-14.6) % Plt Count 178 (150-450) K/mm3 MPV 11.7 (6.2-12.0) fl Immature Gran % (Auto) 0.900 (0.0-0.9) % Neut % (Auto) 70.7 H (47-70) % Lymph % (Auto) 18.7 L (19-41) % [place] % (Auto) 7.5 (0-10) % Eos % (Auto) 1.4 (0-5) % Baso % (Auto) 0.8 (0-1) % Absolute Neuts (auto) 4.7 (2.0-7.7) X10^3/uL Absolute Lymphs (auto) 1.24 (0.83-4.51) X10^3/uL Nucleated RBC % 0 (0-5) % Sodium 136 (133-145) mmol/L Potassium 3.9 (3.3-5.1) mmol/L Chloride 103 (98-108) mmol/L Carbon Dioxide 20.4 L (21.0-32.0) mmol/L Anion Gap 13 (5-15) BUN 6 (4-19) mg/dL Creatinine 0.49 L (0.70-1.20) mg/dL Estim Creat Clear Calc 176.16 (50-250) ml/min Est GFR (MDRD) Non-Af 133 (>60) BUN/Creatinine Ratio 12.8 (10-20) RATIO Glucose 139 H (70-99) mg/dL Calcium 9.2 (7.6-11.0) mg/dL Total Bilirubin 0.44 (0.00-1.30) mg/dL AST 28 (<=31) U/L ALT 33 (<=34) U/L Alkaline Phosphatase 270 H (35-104) U/L Total Protein 6.8 (5.9-8.4) g/dL Albumin 3.4 L (3.5-5.0) g/dL Globulin 3.4 (2.2-4.2) g/dL Albumin/Globulin Ratio 1.0 (0.9-2.4) RATIO Charges/Coding Multi Select Codes Urinary/Genital Urinary/Genital CPT Codes: 78005-04 non-stress test Interp Assessment & Plan (1) Pruritus of : COMMENT: liver enzymes pending-08/15 BP 05/07 (2) Uterine size-date discrepancy, third trimester: (3) History of miscarriage, currently : COMMENT: x2 (4) Supervision of high-risk : QUALIFIERS: Trimester: third trimester Qualified Code(s): O09.93 - Supervision of high risk , unspecified, third trimester COMMENT: PRR , MYRON 09/02/25,boy den PC: Nathalie BF: Johny (5) : QUALIFIERS: Weeks of gestation: 36 weeks Qualified Code(s): Z3A.36 - 36 weeks gestation of COMMENT: NIPT low risk (6) Anxiety and depression: COMMENT: was on Lexapro - stopped awhile ago; stable
== END 2025-08-15 14:15 | disposition home or self-care (01) ==
LOC: WPOUT 10:55 → WP 10:56
PROVIDERS: PCP Nurse Practitioner Family; Visit Provider Advanced Practice Midwife
DX: O99.713 Diseases of the skin and subcutaneous tissue complicating pregnancy, third trimester (principal); L29.9 Pruritus, unspecified; O99.343 Other mental disorders complicating pregnancy, third trimester; F41.9 Anxiety disorder, unspecified; F32.A Depression, unspecified; Z3A.36 36 weeks gestation of pregnancy
CPT/HCPCS: 36415; 59025; 59050 ×2; 76819; 80053; 85025; G0378 ×2; 99221

== ENCOUNTER 2025-08-18 10:26 | Inpatient (IN) | payer MEDICAID, SELFPAY ==
[2025-08-18] VITALS (67 sets, daily range): BP systolic 101–193; BP diastolic 54–140; PULSE 83–118; RESP 13–16; TEMP 36.7–36.9; O2SAT 97–99; BMI 27.4
[2025-08-18] MEDS: 0.9% Normal Saline Single 100 ML IV.SOLN. INTRA-UTER (10:05)
--- NOTE | 2025-08-18 10:27 | HP.PCM.OB_ITS ---
HPI - General General Date of Admission: 08/18/25 Date of Service: 08/18/25 HPI Narrative HUMBLE VERDUZCO, is a 25 F at 37.6 weeks who presents to unit for induction for cholestasis. Elevated Bile acid results received today and patient called for immediate IOL. SVE-3/70/-2, posterior. Maternal Data Information [facility] Calculator Estimated Delivery Date Method Current WG Current Estimate 09/02/25 LMP (Certain) 37w 6d Other Estimates 09/02/25 Ultrasound #1 37w 6d 09/02/25 Ultrasound #2 37w 6d Final MYRON: 09/02/25 Final MYRON Source: US >20 weeks Gestational age: 37.6 PFSH PFSH Home Medications ?Medication ?Instructions ?Recorded ?Last Taken ?Type vits no.130-ferrous fum 1 tab PO QDAY 5 08/14/25 History 27 mg iron-folic acid 800 mcg tablet ( Vitamin) famotidine 20 mg tablet (Pepcid) 20 mg PO QDAY #30 tab s 06/07/25 08/14/25 Rx ferrous gluconate 324 mg (38 mg 324 mg PO QDAY 90 days #90 tabs 07/06/25 08/14/25 Rx iron) tablet cephalexin 500 mg capsule 500 mg PO Q6 7 days #28 caps 08/04/25 Unknown Rx ursodiol 300 mg capsule 300 mg PO BID #30 caps 08/17 Unknown Rx Allergy/AdvReac Type Severity Reaction Status Date / Time No Known Allergies Allergy Verified 08/17/25 14:38 Surgical History S/P tonsillectomy and adenoidectomy Social History adopted: No household members: significant other and children number of children: 1 current occupation: [employer] current occupational exposures/hazards: No pets and animals: Yes (Not managing litterbox) pets and animals: cat(s) history of recent travel: No sexually active: Yes Smoking Status: Current every day smoker tobacco type: e-cigarettes quit status: not considering quitting alcohol intake: current alcohol intake frequency: holidays/special occasions only details: Not while substance use type: does not use well-balanced diet: daily or most days caffeine: Yes Type: carbonated beverages Number of servings: 1 eating out: 1-3 times/week during the past year weight has: remained stable what type of physical activity do you participate in: none dania/methodist: None seatbelt use: never do you feel safe at home: Yes additional social history: Boyfriend: Johny - Works at [employer] History 4 Elective abortions Hx Para 1 Spontaneous abortions 2 Hx # Term Pregnancies 1 Ectopic pregnancies Hx # Pregnancies Multiple births # of living children 1 Past Pregnancies Del. Date Name GA/Weeks Outcome Route Bth Weight Gen Labor Lgth Anesthesia Del Locatn Provider FOB 11/23/19 [place] 39 live - full term 6lbs 12oz Female epidural [place] Isabella Irahetaua 09/30/21 8 spontaneous 07/08/24 8 spontaneous Delivery Date: 11/23/19 Last Updated by: Tamar Chan RN No complications - Induced d/t discomfort Visit Details Expected Delivery Route/Plan Labor Preferences- CB/BF classes: no labor support person: Esequiel labor intervention preferences: [] pain management options preferred: epidural cut cord/dad catch: yes : yes PP control planned: yes discussed possible routes of delivery and associated risks: [] special requests: [] Plans Covid status: [] Flu vaccine: given Tdap vaccine: given Rhogam: na LARC form signed: yes Problem list reviewed and updated with the most current plan of care details and appropriate orders placed. Relevant counseling for the gestational age provided. Continue routine care and follow up unless otherwise noted in visit notes/problem list details OB Flowsheet Initial Weight: 138 lb Date -?-?-?-?-?-?-?-?-?-?-?-?- EGA Weight BP Urine Prot -?-?-?-?-?-?-?-?-?-?-?-?- Glucose FHR FuHt Pres Dilation -?-?-?-?-?-?-?-?-?-?-?-?- Effaced St Visit Note 02/01/25 -?-?-?-?-?-?-?-?-?-?-?-?- 9w 4d 138 lb (+0 oz) 109/71 -?-?-?-?-?-?-?-?-?-?-?-?- 186 -?-?-?-?-?-?-?-?-?-?-?-?- KW- [facility] cons wit h dates. accepts NIPT. had last baby at [facility]-no complications. KW- [facility] cons with dates. acc epts NIPT. had last baby at [facility]-no complications. having significant nausea and vomiting. standing order for IV infusions 02/19/25 -?-?-?-?-?-?-?-?-?-?-?-?- 12w 1d 137 lb 2 oz (-14 oz) 120/80 Negative -?-?-?-?-?-?-?-?-?-?-?-?- Negative 174 -?-?-?-?-?-?-?-?-?-?-?-?- JV- CRL measurin g 12 weeks 2 days, pt seen for leaking fluid. no bleeding or infection signs on exam. ultrasound looks normal. wats NIPT today. 02/24/25 -?-?-?-?-?-?-?-?-?-?-?-?- 12w 6d 137 lb (-16 oz) 97/62 Negative -?-?-?-?-?-?-?-?-?-?-?-?- Negative 164 -?-?-?-?-?-?-?-?-?-?-?-?- JV- patient comp lains of cough and heaviness in chest. Her mom thinks she may have an ear infection but patient states that this is not true.recommend mucinex x 24 hours, if no improvement recommend ear exam at urgent care or pcp. albuterol ordered. new ob labs today. 03/25/25 -?-?-?-?-?-?-?-?-?-?-?-?- 17w 0d 135 lb (-3 lb) 98/60 Negative -?-?-?-?-?-?-?-?-?-?-?-?- Negative 148 -?-?-?-?-?-?-?-?-?-?-?-?- MH-No VB, LOF. Good FM. Some continued headache. Taking tylenol. Reviewed caffeine intake. No vision changes. Phenergan sent 04/23/25 -?-?-?-?-?-?-?-?-?-?-?-?- 21w 1d 138 lb 8 oz (+8 oz) 108/73 Negative -?-?-?-?-?-?-?-?-?-?-?-?- Negative 145 20 -?-?-?-?-?-?-?-?-?-?-?-?- KW- no vb/crampi ng. good fm. discussed previa and follow up US at 28 weeks. 05/20/25 -?-?-?-?-?-?-?-?-?-?-?-?- 25w 0d 145 lb 3 oz (+7 lb 3 oz) 110/72 Negative -?-?-?-?-?-?-?-?-?-?-?-?- Negative 145 25 -?-?-?-?-?-?-?-?-?-?-?-?- SM- no vb lof go od fm no reuglar ctx 06/07/25 -?-?-?-?-?-?-?-?-?-?-?-?- 27w 4d 147 lb 9 oz (+9 lb 9 oz) 112/73 -?-?-?-?-?-?-?-?-?-?-?-?- 141 27 -?-?-?-?-?-?-?-?-?-?-?-?- MH-No vB, LOF. G ood FM. Larc, 28 wk labs pending. Has US w MFM scheduled 06/22/25 -?-?-?-?-?-?-?-?-?-?-?-?- 29w 5d 152 lb 1 oz (+14 lb 1 oz) 107/72 Negative -?-?-?-?-?-?-?-?-?-?-?-?- Negative 140 30 -?-?-?-?-?-?-?-?-?-?-?-?- KW- no vb/lof/ct x. good fm. tdap today. would like BTO after delivery Title 19 signed. 07/06/25 -?-?-?-?-?-?-?-?-?-?-?-?- 31w 5d 156 lb 3 oz (+18 lb 3 oz) 112/73 Negative -?-?-?-?-?-?-?-?-?-?-?-?- Negative 165 32 -?-?-?-?-?-?-?-?-?-?-?-?- JV- no lof, vagi nal bleeding or dec fm. iron ordered for mild anemia. 07/21/25 -?-?-?-?-?-?-?-?-?-?-?-?- 33w 6d 161 lb 1 oz (+23 lb 1 oz) 108/72 Negative -?-?-?-?-?-?-?-?-?-?-?-?- Negative 155 33 -?-?-?-?-?-?-?-?-?-?-?-?- MH-No VB, LOF. G ood FM. some lower pelvic pressure-enc filippo band. States resolved w rest. 08/05/25 -?-?-?-?-?-?-?-?-?-?-?-?- 36w 0d 164 lb 2 oz (+26 lb 2 oz) 115/72 Negative -?-?-?-?-?-?-?-?-?-?-?-?- Negative 140 33 Cephalic 1 -?-?-?-?-?-?-?-?-?-?-?-?- SM- no vb lof go od fm n oreuglar ctx co pelvic pressure 08/09/25 -?-?-?-?-?-?-?-?-?-?-?-?- 36w 4d 169 lb 5 oz (+31 lb 5 oz) 106/78 Negative -?-?-?-?-?-?-?-?-?-?-?-?- Negative 147 35 Cephalic 2 -?-?-?-?-?-?-?-?-?-?-?-?- 60 -2 KW- no vb/ lof/ctx. good fm [facility] is to call her today to set up growth US from last visit 08/17/25 -?-?-?-?-?-?-?-?-?-?-?-?- 37w 5d 165 lb 8 oz (+27 lb 8 oz) 116/79 Negative -?-?-?-?-?-?-?-?-?-?-?-?- Negative 141 3 Cephalic 1 -?-?-?-?-?-?-?-?-?-?-?-?- 60 -3 JV- cx david lakisha to 1 cm. ordering bile acids through [facility] to get a faster turn over. after blood draw will have her start actigall. if results negative then will discontinue it. NST FHR Rate Baby A Baseline: 150 Variability:: Moderate Decelerations:: None NST Reactive:: Yes FHR Category:: Category I Uterine Activity:: irregular ROS Constitutional Constitutional: Denies change in weight, fatigue, fever(s), headache(s), poor appetite or weakness Eyes Eyes: Denies blurry vision, change in vision, floaters, seeing flashes or spots in vision ENT HEENT: Denies dizziness, headache(s), loss taste/smell or sore throat Cardiovascular Cardiovascular: Denies chest pain, dizziness, dyspnea, irregular heart rhythm, lightheadedness, palpitations or rapid heart rate Respiratory/Chest Respiratory/Chest: Denies change in mental status, chest tightness, cough, dyspnea or breast pain Gastrointestinal Gastrointestinal: Denies anorexia, chewing difficulty, constipation, diarrhea or weight changes Genitourinary Genitourinary: Denies difficulty urinating, dysuria, flank pain, genital pain, urinary frequency or urinary urgency Musculoskeletal Musculoskeletal: Denies back pain, difficulty walking, extremity pain, joint pain, muscle cramps or muscle weakness Integumentary Integumentary: Denies lesions or unusual bruising Neurologic Neurologic: Denies abnormal movements, abnormal speech, dizziness, numbness, seizure-like activity, syncope or weakness Psychiatric Psychiatric: Denies behavioral changes, change in appetite, confusion, depression, homicidal ideation, suicidal ideation or suicidal thoughts Endocrine Endocrinology: Denies excessive sweating, polydipsia or polyuria Hematologic/Lymphatic Hematologic/Lymphatic: Denies anemia Allergic/Immunologic Allergic/Immunologic: Denies itchy eyes, lip swelling, throat swelling, tongue swelling or wheezing Physical Exam Const alert, oriented x3 and no apparent distress General Appearance: cooperative Orientation / Consciousness: awake HEENT normocephalic Neck full ROM Lymph Lymphatic: no lymphadenopathy noted Chest inspection of chest normal Resp normal respiratory effort and normal air movement Effort and Inspection: able to speak in complete sentences and symmetric chest movement GI soft to palpation and non-tender Inspection: gravid Palpation: soft; Negative for tender external exam normal Back/Spine normal to inspection Extremity normal to inspection and full ROM Skin no rashes or lesions noted Psych mental status grossly normal Appearance: grossly normal Speech: normal speech Labs Labs Labs: Blood Type A POSITIVE Antibody Screen NEGATIVE Hct, (37-47) 31.5 % L Hgb, (12.0-15.0) 10.2 g/dL L Obstetrics Ultrasound Syphilis Total Ab, (Nonreactive) Nonreactive Rubella IgG Antibody, (Nonreactive) REAC Hep Bs Antigen, (Nonreactive) Nonreactive Hepatitis C Antibody, (Nonreactive) Nonreactive Chlamydia DNA ([facility]), (Negative) Negative N.gonorrhoeae DNA ([facility]), (Negative) Negative HIV 1&2 Antibody, (Nonreactive) Nonreactive Glucose 1 Hr 50 gm, (70-140) 127 mg/dL Miscellaneous Test, (.) COMMENT Assessment & Plan (1) Encounter for induction of labor: PLAN: Patient presents IOL, plan management for with champion bulb/pitocin/AROM. Pain management: plans epidural. GBS negative. Management of any complications: see list I have reviewed the [facility] and made any clinically relevant updates. Dr Us aware of assessment, plan and admission. agrees with above (2) Cholestasis during : COMMENT: elevated bile acids, IOL at 37.6 (3) Pruritus of : COMMENT: liver enzymes pending-08/15 BP 05/07 (4) Uterine size-date discrepancy, third trimester: (5) History of miscarriage, currently : COMMENT: x2 (6) Supervision of high-risk : QUALIFIERS: Trimester: third trimester Qualified Code(s): O09.93 - Supervision of high risk , unspecified, third trimester COMMENT: PRR , MYRON 09/02/25,boy den PC: Nathalie BF: Johny (7) : QUALIFIERS: Weeks of gestation: 37 weeks Qualified Code(s): Z3A.37 - 37 weeks gestation of COMMENT: NIPT low risk (8) Anxiety and depression: COMMENT: was on Lexapro - stopped awhile ago; stable Charges/Coding Multi Select Codes Urinary/Genital Urinary/Genital CPT Codes: No Charge
[2025-08-18] MEDS: Lactated Ringers 1,000 ML 200 ML IV ×3 (10:30→19:06)
[2025-08-18 11:00] LABS: Hematocrit 32.1 % (37-47); Hemoglobin 10.2 g/dL (12.0-15.0); Immature Granulocytes Count 0.020 X10^3/uL (0.0-0.0); Mean Corp Hgb Conc 31.8 g/dL (32-36); Mean Corpuscular Volume 83.8 fL (81-99); Mean Platelet Vol. 12.6 fl (6.2-12.0); NRBC Flagged by Analyzer 0 % (0-5); Platelet Count 177 K/mm3 (150-450); RBC Distribution Width CV 14.3 % (11.6-14.6); RBC Distribution Width SD 43.5 fl (35.1-43.9); Red Blood Count 3.83 M/mm3 (4.2-5.4); White Blood Count 7.3 K/mm3 (4.4-11.0)
[2025-08-18] MEDS: Oxytocin 15 Units/NS 250ml 15 UNITS/250 ML IV.SOLN 2 UNITS IV (11:05)
--- OUTSIDE RECORDS SUMMARY | 2025-08-18 11:16 | XMS RPT_ITS | CCD ---
Author Organization [facility] CliniSyut Care Team Providers Care Lumber Stacker Operator Name Role Phone Keara Mckenzie Unavailable Unavailable [...] MrSirisha Meng Victor M Attending Unavailable BRANDY ACRY RADHA MARY Primary Care Unavailable Mankelsie, Ms. Diaz Attending Unavail able BRANDY CARY RADHA MARY Primary Care Unavailable Martín SERVICES ACCOUNT MANAGER-Radha NAVA Primary Care Provider Radha Cary Primary [...] Forrest Mohr MD Primary Care Provider Martín SERVICES ACCOUNT MANAGER-REMEDIATION CONSULTANT, Radha Primary Care Provider Forrest Mohr MD Unavailable [phone] Forrest Mohr MD Primary Care Provider Martín REMEDIATION CONSULTANT, Radha Primary Care Provider Forrest Mohr MD Unavailable [phone] Forrest Mohr MD Primary Care Provider Martín CALENDER MACHINE OPERATOR HELPER-C, Radha Primary Care Provider Martín CALENDER MACHINE OPERATOR HELPER-C, Radha Referring Provider Magen MONROE, Dr. Robledo Attending Provider Tamar Chan RN Attending Provider UnavailMariajose Sears CNM Attending Provider [phone] Mariajose Ayala CNM Referring Provider [phone] FORREST MOHR Primary Care Unavailable FORREST MOHR [...] Dr. Colleen Villalobos DO Referring Provider Winifred CALENDER MACHINE OPERATOR HELPER-CAisha Attending Provider [phone] Martín CALENDER MACHINE OPERATOR HELPER-C, Radha Primary Care Provider Martín CALENDER MACHINE OPERATOR HELPER-C, Radha Referring Provider Mariajose Ayala CNM Other Provider [phone] Magen MONROE, Dr. Robledo Attending Provider Martín CALENDER MACHINE OPERATOR HELPER-C, Radha Primary Care Provider Martín CALENDER MACHINE OPERATOR HELPER-C, Radha Referring Provider Mariajose Ayala CNM Attending Provider [phone] Mariajose Ayala CNM Referring Provider [phone] Dr. Meena Us MD Referring Provider [phone] RADHA CARY Primary Care Unavailable VENESSA MORRIS Attending Unavailable COLLEEN ROSALES Referring Unavailab COLLEEN Monge Referring Unavailab COLLEEN Monge Attending Unavailab le RADHA CARY Primary Care Unavailable Martín CALENDER MACHINE OPERATOR HELPER-C, Radha Primary Care Physician Martín CALENDER MACHINE OPERATOR HELPER-C, Radha Referring Provider Winifred CALENDER MACHINE OPERATOR HELPER-CAisha Attending Physician [phone] Mariajose Ayala CNM Attending Physician [phone] Mariajose Ayala CNM Nurse Practitioner [phone] Dr. Meena Us MD Attending Physician Dr. Colleen Villalobos DO Attending Physician Cary SERVICES ACCOUNT MANAGER-REMEDIATION CONSULTANT, Radha K Primary Care Provider Pj Dillard, Colleen Attending Unavailabl e Cary, Radha Primary Care Unavailable Cary, Radha Referring Unavailable Vande Velde, Colleen Attending Unavailabl e Cary, Radha Primary Care Unavailable Cary, Radha Referring Unavailable Winifred CALENDER MACHINE OPERATOR HELPER, Aisha Attending Unavailable Cary, Radha Primary Care Unavailable Cary, Radha Referring Unavailable Jamie, Mariajose Referring Unavailable Jamie, Mariajose Attending Unavailable Jamie Mariajose Consulting Unavailable Cary, Radha Primary Care Unavailable Jamie, Mariajose Attending Unavailable Cary, Radha Primary Care Unavailable Jamie, Mariajose Referring Unavailable Jamie, Mariajose Referring Unavailable Jamie, Mariajose Attending Unavailable Cary, Radha Primary Care Unavailable MarcanthonyMeena Referring Unavailable Marcanthony, Meena Attending Unavailable Cary, Radha Primary Care Unavailable MarcanthonyMeena Attending Unavailable MarcanthonyMeena Referring Unavailable Cary, Radha [...] Care Unavailable Cary, Radha Referring Unavailable Winifred CALENDER MACHINE OPERATOR HELPER, Aisha Attending Unavailable Cary, Radha Primary Care Unavailable Cary, Radha Referring Unavailable MarcanthonyMeena Attending Unavailable Cary, Radha Referring Unavailable Cary, Radha Primary Care Unavailable Winifred CALENDER MACHINE OPERATOR HELPER, Aisha Attending Unavailable Cary, Radha Referring Unavailable Cary, Radha Primary Care Unavailable MarcanthonyMeena Attending Unavailable Cary, Radha Primary Care Unavailable Cary, Radha Referring Unavailable Cayr, Radha Referring Unavailable Jamie Mariajose Attending Unavailable [...] Care Unavailable Radha Cary Referring Unavailable Martín CALENDER MACHINE OPERATOR HELPER-C, Radha Primary Care Physician Martín CALENDER MACHINE OPERATOR HELPER-C, Radha Referring Provider [phone] Mariajose Ayala CNM Attending Physician [phone] Jamie CNMariajose Mitchell Referring Provider [phone] Mariajose Ayala CNM Nurse Practitioner [phone] Magen MONROE, Dr. Robledo Attending Physician Magen MONROE, Dr. Robledo Referring Provider [phone] Winifred REGAN-CAisha Attending Physician [phone] Dr. Colleen [...] Mejia Status: Other Generic Substitution Allowed Vit No.622-Sbts-Mmqsn ( Vitamin) 27 mg iron- 800 mcg tablet (12 sources) Start: 01-05-2025 Start: 01-05-2025 Vit N o.733-Yesg-Zztba ( Vitamin) 27 mg iron- 800 mcg tablet Active 1 {tbl} PO daily January 05, 2025 12:00am Complies with drug therapy Start: 01-05-2025 Vit N o.137-Jqvw-Ctsor ( Vitamin) 27 mg iron- 800 mcg tablet Active 1 {tbl} PO daily January 05, 2025 12:00am vit,bruce 42-fvgv-clqkv 27 mg iron- 1 mg tablet (3 sources) Start: 06-08-2024 End: 06-08-2025 take 1 tablet by mouth once daily vit,bruce 99-gigl-rmaqy 27 mg iron- 1 mg tablet Indications: Amenorrhea Take 1 tablet by mouth once daily. 90 each 3 06/08/2024 06/08/2025 Active vitamin, iron-folic, ( Vitamin) 27 mg iron-800 mcg folic acid tablet (3 sources) Start: 12-22-2024 take 1 tablet by mouth once daily vitamin, iron-folic, ( Vitamin) 27 mg iron-800 mcg folic acid tablet Indications: test positive ([facility]) Take 1 tablet by mouth once daily. [...] Drug Class(es) Dates Sig (Normalized) Sig (Original) [id number] 200 actuat albuterol 0.09 mg/actuat metered dose [...] mL/hr, Administer over 30 Minutes, Once, On [place] 01/31/25 at 2034, For 1 dose, premix [...] DAILY. Quantity: 10 Refills: 0 Ordered: 11-Jul-2022 et-WTQCSE-Wzyzy DO, Brett Start : 11-Jul-2022 Active Start: [...] End: 01-31-2025 4 mg, intravenous, Once, On [place] 01/31/25 at 1845, For 1 dose, When [...] DAILY. Quantity: 30 Refills: 11 Ordered: 11-Jul-2022 tm-VKSMAO-FyjssKeara Andres DO Start : 11-Jul-2022 Active Start: [...] DAILY. Quantity: 30 Refills: 11 Ordered: 11-Jul-2022 ck-HILELM-AhlnwKeara Andres DO Start : 11-Jul-2022 Active Vitamins [...] 11-06-2022 Episodic Other aftercare (1 source) Other intermediate designer (current) drug therapy; Translations: [Other longterm (current) drug therapy] Onset: 12-27-2022 Episodic Other [...] Mild hyperemesis gravidarum; Translations: [Mild hyperemesis gravidarum ([facility])] Onset: 01-31-2025 Episodic Other complications of (2 [...] 10-21-2022 Comment on above: VAG BLEED (8WEEKS [place] EG) Unclassified (1 source) NEW OB EST [...] Ayala on 08-09-2025 Glucose Ql (U) Negative [facility] Laboratory - UrinalysisOrder ed By: Mariajose Ayala on 08-09-2025 Protein Ql (U) Negative [facility] Activity Leader Office Visit Reporton 08-09-2025 Activity Leader Office Visit Report [facility]'s [address], [address] [place] [address] OFFICE VISIT Date of Service: 08/09/25 MR#: [id number] Acct: [id number] Name: DEBI VERDUZCO Rep #: [id number] : 2000 Provider: BOB Veloz ams Age/Sex: 25/F [place] [facility] [place]: Signed Intake Vital Signs 07/06/25 09:56 08/04/25 12:44 08/05/25 13:00 08/09/25 09:05 Height 5 ft 5 in 5 ft 5 in 5 ft 5 in 5 ft 5 in Weight: 164 lb 2 oz 169 lb 5 oz BMI 27.3 28.1 BP 115/72 106/78 Intake Visit Reasons: 37wk ob Blow Pit Operator Required: No Is patient in pain?: No [...] children number of children: 1 current occupation: [employer] current occupational exposures/hazards: No pets and animals: [...] physical activity do you participate in: none dania/oriental orthodox: None seatbelt use: never do you feel safe at home: Yes additional social history: Boyfriend: Johny - Works at [employer] History 4 Elective abortions Hx Para 1 Spontaneous abortions 2 Hx # Term Pregnancies 1 Ectopic pregnancies Hx # Pregnancies Multiple births # of living children 1 Past Pregnancies Del. Date Name GA/Weeks Outcome Route Bth Weight Gen Labor Lgth Anesthesia Del Locatn Provider FOB 11/23/19 [place] 39 live - full term 6lbs 12oz Female epidural [facility] Johny 09/30/21 8 spontaneous 07/08/24 8 spontaneous [...] dates. accepts NIPT. [facility]. [facility]- CRL cons with dates. accepts N IPT. [facility] complications. having significant nausea and vomiting. standing order for IV infusions (more content not included)... Normal [facility] Rule out Beta Strep (Grp. B) on 08-07-2025 ASHIA Group B Beta Streptococcus is not isolated. Normal [facility] Comment on above: Performed By: #### M 100.7986 #### [facility] Laboratory [facility] [place], [address] Laboratory - Chemistry and C hemistry - challengeOrdered By: Meena Us on 08-05-2025 Glucose Ql (U) Negative [facility] Laboratory - UrinalysisOrder ed By: Meena Us on 08-05-2025 Protein Ql (U) Negative [facility] Activity Leader Office Visit Reporton 08-05-2025 Activity Leader Office Visit Report [facility]'[address], [address] [place] [address] OFFICE VISIT Date of Service: 08/05/25 MR#: [id number] Acct: [id number] Name: DEBI VERDUZCO Rep #: [id number] : 2000 Provider: Dr. Meena menendez MD Age/Sex: 25/F Location[place] [facility] Status: Signed Intake Vital Signs 07/06/25 09:56 07/21/25 09:44 08/04/25 12:44 08/05/25 13:00 Height 5 ft 5 in 5 ft 5 in 5 ft 5 in 5 ft 5 in Weight: 164 lb 2 oz BMI 27.3 BP 115/72 Intake Visit Reasons: 36wk ob Blow Pit Operator Required: No Is patient in pain?: No [...] children number of children: 1 current occupation: [employer] current occupational exposures/hazards: No pets and animals: [...] physical activity do you participate in: none dania/oriental orthodox: None seatbelt use: never do you feel safe at home: Yes additional social history: Boyfriend: Johny - Works at [employer] History 4 Elective abortions Hx Para 1 Spontaneous abortions 2 Hx # Term Pregnancies 1 Ectopic pregnancies Hx # Pregnancies Multiple births # of living children 1 Past Pregnancies Del. Date Name GA/Weeks Outcome Route Bth Weight Gen Labor Lgth Anesthesia Del Locatn Provider FOB 11/23/19 [place] 39 live - full term 6lbs [facility] 8 spontaneous 07/08/24 8 spontaneous [...] dates. accepts NIPT. [facility]. KW- CRL cons with dates. accepts N IPT. [facility] complications. having significant nausea and vomiting. standing order for IV infusions 02/19/25 -???-???-???-???-???-??? -???-???-???-???-? (more content not included)... Normal [facility] Screening beta-hemolytic Str eptococcus cultureOrdered By: Meena Us on 08-05-2025 Beta-hemolytic Streptococcus culture Group B Beta Streptococcus is not isolated. [facility] Urine Cultureon 08-05-2025 URC Culture exhibits no growth. Normal [facility] Comment on above: Performed By: #### M 100.9788 ####[facility] [id number] [place], [place], [address] (ROM) Rupture Of Membraneson 08-04-2025 ROM Negative Normal Negative [facility] Comment on above: Result Comment: Amni otic fluid not present indicates No Rupture of Membranes at time of specimen collection. Performed By: #### L 400.2011, L205.1000 #### [facility] Laboratory [address] [place], [address] Bilirubin Test strip Ql (U)O rdered By: Meena Us on 08-04-2025 Bilirubin Ql (U) Negative Negative [facility] Ketones Test strip Ql (U)Ord ered By: Meena Us on 08-04-2025 Ketones Ql (U) Negative Negative [facility] Nitrite Test strip Ql (U)Ord ered By: Meena Us on 08-04-2025 Nitrite Ql (U) Negative Negative [facility] OB Triage Progress Noteon OB Triage Progress Note [facility] Medical Records Department [address] [place] [address] OB Triage Progress Note 08/04/25 1355 MR#: [id number] Acct: [id number] Name: DEBI VERDUZCO Rep #: [id number] : 2000 25 From: Meena Us MD PCP: CONCEPCION Caballero Status:DEP CLI Y DOS: Location: [facility]OUT Progress Notes Progress Note: Patient presents for triage evaluation secondary to dec fm possible srom FHT: 150 Moderate variability reactive no decelerations category I tracing Bogart: irregulr Contractions Assessment and plan: 35 week [...] pH 6.0 (5.0 - 8.0) Ur Specific [place] 1.020 (1.002-1.030) Urine Protein 30 H (Negative) mg/dl Urine Glucose (UA) Normal (Normal) mg/dl Urine Ketones Negative (Negative) mg/dl Urine Occult Blood 25 H (Negative) /ul Urine Nitrite Negative (Negative) Urine Bilirubin Negative (Negative) mg/dL Urine Urobilinogen Normal (Normal) mg/dl Ur Leukocyte Esterase 500 H (Negative) /ul Vag Amniotic Fld Detect Negative (Negative) Charges/Coding Procedures Urinary/Genital 52xxx-59xxx: [id number] non-stress test Interp 08/04/25 1402 Date Meena Us MD Cosigner Signature (if applicable): Date CC: CONCEPCION Cary; Dr. Meena Us MD Signed Normal [facility] Protein Test strip Ql (U)Ord ered By: Meena Us on 08-04-2025 Protein Ql (U) 30 mg/dl High Negative [facility] Urinalysis, Routine (Dipstic k)on 08-04-2025 BILIRUBIN URINE Negative Normal Negative [facility] Comment on above: Order Comment: CLEAN CATCH Performed By: #### L 400.2010, #### [facility] Laboratory [address] [place], [place], [address] Clarity (U) Sl. Cloudy Normal Clear [facility] Comment on above: Order Comment: CLEAN CATCH Performed By: #### L 400, #### [facility] Laboratory [address] [place], [address] Color (U) Yellow Normal Yellow [facility] Comment on above: Order Comment: CLEAN CATCH Performed By: #### L 400.2010, #### [facility] Laboratory [address] [place], [address] GLUCOSE, UR Normal Normal Normal [facility] Comment on above: Order Comment: CLEAN CATCH Performed By: #### L 400.2010, L2.1000 #### [facility] Laboratory [address] [place], [address] KETONE UR Negative Normal Negative [facility] Comment on above: Order Comment: CLEAN CATCH Performed By: #### L 400.2010, L205.1000 #### [facility] Laboratory [address] [place], [address] LEUK ESTERASE 500 /ul Abnormal Negative [facility] Comment on above: Order Comment: CLEAN CATCH Performed By: #### L 400.2010, L2.1000 #### [facility] Laboratory [address] [place], [address] Nitrite Ql (U) Negative Normal Negative [facility] Comment on above: Order Comment: CLEAN CATCH Performed By: #### L 400.2010, L2.999 #### [facility] Laboratory [address] [place], [address] OCCULT BLOOD-UR 25 /ul Abnormal Negative [facility] Comment on above: Order Comment: CLEAN CATCH Performed By: #### L 400.2010, L2.1000 #### [facility] Laboratory [address] [place], [address] pH UR 6.0 Normal 5.0 - 8.0 [facility] Comment on above: Order Comment: CLEAN CATCH Performed By: #### L 400.2010, L2.1000 #### [facility] Laboratory [address] [place], [address] PROT DIPSTX 30 mg/dl Abnormal Negative [facility] Comment on above: Order Comment: CLEAN CATCH Performed By: #### L 400.2010, L2.1000 #### [facility] Laboratory [address] [place], [address] SP.GR. DIPSTX 1.020 Normal 1.002-1.030 [facility] Comment on above: Order Comment: CLEAN CATCH Performed By: #### L 400.2010, L205.1000 #### [facility] Laboratory [address] [place], [place], [address] UROBILI Normal Normal Normal [facility] Comment on above: Order Comment: CLEAN CATCH Performed By: #### L 400.2010, L205.1000 #### [facility] Laboratory [address] [place], [address] Urine clarityOrdered By: Noel Us on 08-04-2025 Clarity (U) Sl. Cloudy Clear [facility] Urine color determinationOrd ered By: Meena Us on 08-04-2025 Color (U) Yellow Yellow [facility] Urine cultureOrdered By: Noel Us on 08-04-2025 Bacteria identified Cx Nom (U) Culture exhibits no growth. [facility] Urine glucose detectionOrder ed By: Meena Us on 08-04-2025 Glucose Ql (U) Normal mg/dl Normal [facility] Urine leukocyte esterase det ection by dipstickOrdered By: Meena Us on 08-04-2025 Leukocyte esterase Test strip Ql (U) 500 /ul High Negative [facility] Urine pHOrdered By: Meena clay on 08-04-2025 pH (U) 6.0 [pH] 5.0 - 8.0 [facility] Urine specific gravity measu rementOrdered By: Meena Us on 08-04-2025 Specific gravity (U) [Rel density] 1.020 1.002-1.030 [facility] Urine urobilinogen measureme ntOrdered By: Meena Us on 08-04-2025 Urobilinogen Ql (U) Normal mg/dl Normal [facility] Laboratory - Chemistry and C hemistry - challengeOrdered By: Aisha Vitale on 07-21-2025 Glucose Ql (U) Negative [facility] Laboratory - UrinalysisOrder ed By: Aisha Vitale on 07-21-2025 Protein Ql (U) Negative [facility] Activity Leader Office Visit Reporton 07-21-2025 Activity Leader Office Visit Report [facility]'s Care [address] [place] [address], [address] [place] [address] OFFICE VISIT Date of Service: 07/21/25 MR#: [id number] Acct: [id number] Name: DEBI VERDUZCO Rep #: [id number] : 2000 Provider: CONCEPCION gamino Age/Sex: 25/F [place] [facility] Status: Signed Intake Vital Signs 06/22/25 12:57 07/06/25 09:56 07/21/25 09:44 Height 5 ft 5 in 5 ft 5 in 5 ft 5 in Weight: 161 lb 1 oz BMI 26.8 BP 108/72 Intake Visit Reasons: 33 WK 6D OB Blow Pit Operator Required: No Is patient in pain?: No [...] children number of children: 1 current occupation: [employer] current occupational exposures/hazards: No pets and animals: [...] physical activity do you participate in: none dania/oriental orthodox: None seatbelt use: never do you feel safe at home: Yes additional social history: Boyfriend: Johny - Works at [employer] History 4 Elective abortions Hx Para 1 Spontaneous abortions 2 Hx # Term Pregnancies 1 Ectopic pregnancies Hx # Pregnancies Multiple births # of living children 1 Past Pregnancies Del. Date Name GA/Weeks Outcome Route Bth Weight Infant Gen Labor Lgth Anesthesia Del Locatn Provider FOB 11/23/19 [place] 39 live - full term 6lbs 12oz [facility] 8 spontaneous 07/08/24 8 [...] dates. accepts NIPT. [facility]. [facility]- CRL cons with dates. accepts N IPT. had last baby [facility]-no complications. having significant nausea and vomiting. standing order for IV infusions 02/19/25 -???-???-???-???-???-??? -???-???-???-???-???-??? - 12w 1d 137 lb 2 oz (-14 oz) 120/80 Negative -???-???-???-???-???-??? -???-???-???-???-???-??? - Negat (more content not included)... Normal [facility] Laboratory - Chemistry and C hemistry - challengeOrdered By: Colleen Dillard on 07-06-2025 Glucose Ql (U) Negative [facility] Laboratory - UrinalysisOrder ed By: Colleen Dillard on 07-06-2025 Protein Ql (U) Negative [facility] Activity Leader Office Visit Reporton 07-06-2025 Activity Leader Office Visit Report [facility]'s [address], [address] [place] [address] OFFICE VISIT Date of Service: 07/06/25 MR#: [id number] Acct: [id number] Name: DEBI VERDUZCO Rep #: [id number] : 2000 Provider: Dr. Colleen Brannon DO Age/Sex: 25/F Location[place] [facility] Status: Signed Intake Vital Signs 05/20/25 13:53 06/22/25 12:57 07/06/25 09:56 Height 5 ft 5 in 5 ft 5 in 5 ft 5 in Weight: 156 lb 3 oz BMI 25.9 BP 112/73 Intake Visit Reasons: 31 WK 5B OB Blow Pit Operator Required: No Is patient in pain?: No [...] children number of children: 1 current occupation: [employer] current occupational exposures/hazards: No pets and animals: [...] physical activity do you participate in: none dania/oriental orthodox: None seatbelt use: never do you feel safe at home: Yes additional social history: Boyfriend: Johny - Works at [employer] History 4 Elective abortions Hx Para 1 Spontaneous abortions 2 Hx # Term Pregnancies 1 Ectopic pregnancies Hx # Pregnancies Multiple births # of living children 1 Past Pregnancies Del. Date Name GA/Weeks Outcome Route Bth Weight Gen Labor Lgth Anesthesia Del Locatn Provider FOB 11/23/19 [place] 39 live - full term 6lbs 12oz [facility] 8 spontaneous 07/08/24 8 [...] dates. accepts NIPT. [facility]. KW- CRL cons with dates. accepts N IPT. had last baby at [facility]-no complications. having significant nausea and vomiting. standing order for IV infusions 02/19/25 -???-???-???-???-???-??? -???-???-???-???-???-??? - 12w 1d 137 lb 2 oz (-14 oz) 120/80 Negative -???-???-???-???-???-??? -???-???-???-???-???-??? - Nega (more content not included)... Normal [facility] Laboratory - Chemistry and C hemistry - challengeOrdered By: Mariajose Ayala on 06-22-2025 Glucose Ql (U) Negative [facility] Laboratory - UrinalysisOrder ed By: Mariajose Ayala on 06-22-2025 Protein Ql (U) Negative [facility] Activity Leader Office Visit Reporton 06-22-2025 Activity Leader Office Visit Report [facility]'s [facility] [address], [address] [place] [address] OFFICE VISIT Date of Service: 06/22/25 MR#: [id number] Acct: [id number] Name: DEBI VERDUZCO Rep #: [id number] : 2000 Provider: BOB Veloz ams Age/Sex: 25/F Location[place] [facility] Status: Signed Intake Vital Signs 04/23/25 10:49 06/07/25 13:30 06/22/25 12:57 Height 5 ft 5 in 5 ft 5 in 5 ft 5 in Weight: 152 lb 1 oz BMI 25.2 BP 107/72 Intake Visit Reasons: 30 WK OB Chief Complaint: 30wk OB Blow Pit Operator Required: No Is patient in pain?: No [...] children number of children: 1 current occupation: [employer] current occupational exposures/hazards: No pets and animals: [...] physical activity do you participate in: none dania/oriental orthodox: None seatbelt use: never do you feel safe at home: Yes additional social history: Boyfriend: Johny - Works at [employer] History 4 Elective abortions Hx Para 1 Spontaneous abortions 2 Hx # Term Pregnancies 1 Ectopic pregnancies Hx # Pregnancies Multiple births # of living children 1 Past Pregnancies Del. Date Name GA/Weeks Outcome Route Bth Weight Infant Gen Labor Lgth Anesthesia Del Locatn Provider FOB 11/23/19 Nathalie 39 live - full term 6lbs 12oz Female epid[facility] Johny 09/30/21 8 spontaneous 07/08/24 8 spontaneous [...] dates. accepts NIPT. [facility]. KW- CRL cons with dates. accepts N IPT. [facility]-no complications. having significant nausea and vomiting. standing order for IV infusions 02/19/25 -???-???-???-???-???-??? -???-???-???-???-???-??? - 12w 1d 137 lb 2 oz (-14 oz) 120/80 Negative -???-???-???-???-???-??? -???-???-???-???-???-??? - Negative 174 -???-???-???-???-???-??? -???-???-???-???-???-??? - JV- CRL patience uring 12 weeks 2 days, pt seen for leaking fluid. no bleeding or infection signs on exa (more content not included)... Normal [facility] Absolute lymphocyte countOrd ered By: Meena Us on 06-07-2025 Lymphocytes Auto (Unsp spec) [#/Vol] 1.18 10*3/uL 0.83-4.51 [facility] Absolute neutrophil countOrd ered By: Meena Us on 06-07-2025 Neutrophils (Bld) [#/Vol] 5.7 10*3/uL 2.0-7.7 [facility] Automated lymphocyte count a s percentage of total leukocytesOrdered By: Meena Us on 06-07-2025 Lymphocytes/100 WBC Auto (Unsp spec) 15.4 % Low 19-41 [facility] Basophil percentageOrdered B y: Meena Us on 06-07-2025 Basophils/100 WBC (Bld) 0.4 % 0-1 [facility] CBC W/Diff, Automatedon Absolute Lymph 1.18 X10 3/uL Normal 0.83-4.51 [facility] Comment on above: Performed By: #### L 100.0100, L509.8002, L3890.6006, L501.0250 #### [facility] Laboratory [address] [place], [address] Absolute Neut 5.7 X10 3/uL Normal 2.0-7.7 [facility] Comment on above: Performed By: #### L 100.0100, L509.8002, L3890.6006, L501.0250 #### [facility] Laboratory [address] [place], [address] Basophils/100 WBC (Bld) 0.4 % Normal 0-1 [facility] Comment on above: Performed By: #### L 100.0100, L509.8002, L3890.6006, L501.0250 #### [facility] Laboratory [address] [place], [address] Eosinophils/100 WBC (Bld) 1.0 % Normal 0-5 [facility] Comment on above: Performed By: #### L 100.0100, L509.8002, L3890.6006, L501.0250 #### [facility] Laboratory [address] [place], [address] Erythrocyte distribution width (RBC) [Ratio] 14.2 % Normal 11.6-14.6 [facility] Comment on above: Performed By: #### L 100.0100, L509.8002, L3890.6006, L501.0250 #### [facility] Laboratory [address] [place], [address] Hematocrit (Bld) [Volume fraction] 31.3 % Low 37-47 [facility] Comment on above: Performed By: #### L 100.0100, L509.8002, L3890.6006, L501.0250 #### [facility] Laboratory [address] [place], [address] Hemoglobin (Bld) [Mass/Vol] 10.9 g/dL Low 12.0-15.0 [facility] Comment on above: Performed By: #### L 100.0100, L509.8002, L3890.6006, L501.0250 #### [facility] Laboratory [address] [place], [address] IG% 0.700 Normal 0.0-0.9 [facility] Comment on above: Result Comment: IG% - Immature Granulocytes (promyelocytes, myelocytes and metamyelocytes) > 1% indicates that a LEFT SHIFT is Present. Performed By: #### L 100.0100, L509.8002, L3890.6006, L501.0250 #### [facility] [address] [place], [address] Lymphocytes/100 WBC (Bld) 15.4 % Low 19-41 [facility] Comment on above: Performed By: #### L 100.0100, L509.8002, L3890.6006, L501.0250 #### [facility] Laboratory [address] [place], [address] MCH (RBC) [Entitic mass] 29.5 pg Normal 27.0-32.0 [facility] Comment on above: Performed By: #### L 100.0100, L509.8002, L3890.6006, L501.0250 #### [facility] Laboratory [address] [place], [address] MCHC (RBC) [Mass/Vol] 34.8 g/dL Normal 32-36 [facility] Comment on above: Performed By: #### L 100.0100, L509.8002, L3890.6006, L501.0250 #### [facility] Laboratory [address] [place], [address] MCV (RBC) [Entitic vol] 84.8 fL Normal 81-99 [facility] Comment on above: Performed By: #### L 100.0100, L509.8002, L3890.6006, L501.0250 #### [facility] Laboratory [address] [place], [address] Monocytes/100 WBC (Bld) 8.1 % Normal 0-10 [facility] Comment on above: Performed By: #### L 100.0100, L509.8002, L3890.6006, L501.0250 #### [facility] Laboratory [address] [place], [address] Neutrophils/100 WBC (Bld) 74.4 % High 47-70 [facility] Comment on above: Performed By: #### L 100.0100, L509.8002, L3890.6006, L501.0250 #### [facility] Laboratory [address] [place], [address] Nucleated RBC (Bld) [#/Vol] 0 10*3/uL Normal 0-5 [facility] Comment on above: Performed By: #### L 100.0100, L509.8002, L3890.6006, L501.0250 #### [facility] Laboratory [address] [place], [address] Platelet mean volume (Bld) [Entitic vol] 10.7 fL Normal 6.2-12.0 [facility] Comment on above: Performed By: #### L 100.0100, L509.8002, L3890.6006, L501.0250 #### [facility] Laboratory [address] [place], [address] Platelets (Bld) [#/Vol] 223 10*3/uL Normal 150-450 [facility] Comment on above: Performed By: #### L 100.0100, L509.8002, L3890.6006, L501.0250 #### [facility] Laboratory [address] [place], [address] RBC (Bld) [#/Vol] 3.69 10*6/uL Low 4.2-5.4 [facility] Comment on above: Performed By: #### L 100.0100, L509.8002, L3890.6006, L501.0250 #### [facility] Laboratory [address] [place], [address] RDW SD 43.9 fl Normal 35.1-43.9 [facility] Comment on above: Performed By: #### L 100.0100, L509.8002, L3890.6006, L501.0250 #### [facility] Laboratory [address] [place], [address] WBC (Bld) [#/Vol] 7.7 10*3/uL Normal 4.4-11.0 [facility] Comment on above: Performed By: #### L 100.0100, L509.8002, L3890.6006, L501.0250 #### [facility] Laboratory [address] [place], [address] Eosinophil percentageOrdered By: Meena Us on 06-07-2025 Eosinophils/100 WBC (Bld) 1.0 % 0-5 [facility] Erythrocyte distribution wid th ratioOrdered By: Meena Us on 06-07-2025 Erythrocyte distribution width (RBC) [Ratio] 14.2 % 11.6-14.6 [facility] Erythrocyte distribution wid th standard deviationOrdered By: Meena Us on 06-07-2025 Erythrocyte distribution width (RBC) [Ratio] 43.9 fl 35.1-43.9 [facility] Glucose Challenge Gest 1H 50 evelyne 06-07-2025 GLU GEST 50g 1H 127 mg/dL Normal 70-140 [facility] Comment on above: Performed By: #### L 100.0100, L509.8002, L3890.6006, L501.0250 ####[facility] [address] [place], [place], [id number] Glucose measurement at 2 pedrito rs post-dose gestational glucose tolerance testOrdered By: Meena Us on 06-07-2025 Glucose [Mass/Vol] 127 mg/dL 70-140 [facility] HIVon 06-07-2025 HIV Non-Reactive Normal Nonreactive [facility] Comment on above: Result Comment: Non- Reactive Reactive Repeatedly reactive samples must be confirmed according to CDC recommended confirmatory algorithms. The subresults for either HIVAG or AHIV can be used as an aid in the selection of the confirmation algorithm for reactive samples. Send out specimens with Reactive results to [facility] for confirmation. Order the HIV antibody detection and differentiation: lc#[id number] Performed By: #### L 100.0100, L509.8002, L3890.6006, L501.0250 ####[facility] [address] [place], [place], [id number] Hematocrit Auto (Bld) [Volum e fraction]Ordered By: Meena Us on 06-07-2025 Hematocrit (Bld) [Volume fraction] 31.3 % Low 37-47 [facility] Hemoglobin measurementOrdere d By: Meena Us on 06-07-2025 Hemoglobin (Bld) [Mass/Vol] 10.9 g/dL Low 12.0-15.0 [facility] Immature granulocytes/100 WB C Auto (Bld)Ordered By: Meena Us on 06-07-2025 Immature granulocytes/100 WBC (Bld) 0.700 % 0.0-0.9 [facility] Comment on above: IG% - Immature Granu locytes (promyelocytes, myelocytes and metamyelocytes) > 1% indicates that a LEFT SHIFT is Present. MCV (mean corpuscular volume ) determinationOrdered By: Meena Us on 06-07-2025 MCV (RBC) [Entitic vol] 84.8 fL 81-99 [facility] Mean corpuscular hemoglobin (MCH) determinationOrdered By: Meena Us on 06-07-2025 MCH (RBC) [Entitic mass] 29.5 pg 27.0-32.0 [facility] Mean corpuscular hemoglobin concentration (MCHC) determinationOrdered By: Meena Us on 06-07-2025 MCHC (RBC) [Mass/Vol] 34.8 g/dL 32-36 [facility] Mean platelet volume determi nationOrdered By: Meena Us on 06-07-2025 Platelet mean volume (Bld) [Entitic vol] 10.7 fL 6.2-12.0 [facility] Monocyte percentageOrdered B y: Meena Us on 06-07-2025 Monocytes/100 WBC (Bld) 8.1 % 0-10 [facility] Neutrophil percentageOrdered By: Meena Us on 06-07-2025 Neutrophils/100 WBC (Bld) 74.4 % High 47-70 [facility] No Panel InformationOrdered By: Meena Us on 06-07-2025 HIV (1&2) Antibody Non-Reactive Nonreactive [facility] Comment on above: Non-ReactiveReactive Repeatedly reactive samples must be confirmed according to CDC recommended confirmatory algorithms. The subresults for either HIVAG or AHIV can be used as an aid in the selection of the confirmation algorithm for reactive samples.Send out specimens with Reactive results to [facility] for confirmation.Order the HIV antibody detection and differentiation: #[id number] Nucleated red blood cell per centageOrdered By: Meena Us on 06-07-2025 Nucleated RBC/100 WBC (Bld) [Ratio] 0 % 0-5 [facility] Activity Leader Office Visit Reporton 06-07-2025 Activity Leader Office Visit Report [facility]'s [address], [address] [place] [address] OFFICE VISIT Date of Service: 06/07/25 MR#: [id number] Acct: [id number] Name: DEBI VERDUZCO Rep #: [id number] : 2000 Provider: CONCEPCION gamino Age/Sex: 25/F [place] [facility] [place]: Signed Intake Vital Signs 04/23/25 10:49 05/20/25 13:53 06/07/25 13:27 06/07/25 13:30 Height 5 ft 5 in 5 ft 5 in 5 ft 5 in 5 ft 5 in Weight: 147 lb 9 oz BMI 24.5 BP 112/73 Intake Visit Reasons: 28 WK OB/Glucose Chief Complaint: 28 Week OB/Glucose Blow Pit Operator Required: No Is patient in pain?: No [...] children number of children: 1 current occupation: [employer] current occupational exposures/hazards: No pets and animals: [...] physical activity do you participate in: none dania/oriental orthodox: None seatbelt use: never do you feel safe at home: Yes additional social history: Boyfriend: Johny - Works at [employer] History 4 Elective abortions Hx Para 1 Spontaneous abortions 2 Hx # Term Pregnancies 1 Ectopic pregnancies Hx # Pregnancies Multiple births # of living children 1 Past Pregnancies Del. Date Name GA/Weeks Outcome Route Bth Weight Infant Gen Labor Lgth Anesthesia Del Locatn Provider FOB 11/23/19 Nathalie 39 live - full term 6lbs 12oz Female epidural [facility] Johny 09/30/21 8 spontaneous 07/08/24 8 spontaneous [...] dates. accepts NIPT. had [facility]. KW- CRL cons with dates. accepts N IPT. had last baby at [facility]-no complications. having significant nausea and vomiting. standing order for IV infusions 02/19/25 -???-???-???-???-???-??? -???-???-???-???-???-??? - 12w 1d 137 lb 2 oz (-14 oz) 120/80 Negative -???-???-???-???-???-??? -???-???-???-???-???-??? - Negative 174 -???-???-???-???-???-??? -???- (more content not included)... Normal [facility] Platelet countOrdered By: Vish Us on 06-07-2025 Platelets (Bld) [#/Vol] 223 10*3/uL 150-450 [facility] RBC Auto (Bld) [#/Vol]Ordere d By: Meena Us on 06-07-2025 RBC (Bld) [#/Vol] 3.69 10*6/uL Low 4.2-5.4 [facility] Syphilis Antibodieson 2024 Syphilis Abs Non-Reactive Normal Nonreactive [facility] Comment on above: Performed By: #### L 100.0100, L509.8002, L3890.6006, L501.0250 ####[facility] [address] [place], [place], [id number] White blood cell (WBC) count Ordered By: Meena Us on 06-07-2025 WBC (Bld) [#/Vol] 7.7 10*3/uL 4.4-11.0 [facility] Laboratory - Chemistry and C hemistry - challengeOrdered By: Meena Us on 05-20-2025 Glucose Ql (U) Negative [facility] Laboratory - UrinalysisOrder ed By: Meena Us on 05-20-2025 Protein Ql (U) Negative [facility] Activity Leader Office Visit Reporton 05-20-2025 Activity Leader Office Visit Report [facility]'s [address], [address] [place] [address] OFFICE VISIT Date of Service: 05/20/25 MR#: [id number] Acct: [id number] Name: DAXDEBI DSOUZAN Rep #: [id number] : 2000 Provider: Dr. Meena menendez MD Age/Sex: 25/F Location[place] [facility] [place] Status: Signed Intake Vital Signs 03/25/25 13:34 05/07/25 18:29 05/20/25 13:53 Height 5 ft 5 in 5 ft 5 in 5 ft 5 in Weight: 145 lb 3 oz BMI 24.1 BP 110/72 Intake Visit Reasons: 25 wk ob Blow Pit Operator Required: No Is patient in pain?: No [...] children number of children: 1 current occupation: [employer] current occupational exposures/hazards: No pets and animals: [...] physical activity do you participate in: none dania/oriental orthodox: None seatbelt use: never do you feel safe at home: Yes additional social history: Boyfriend: Johny - Works at [employer] History 4 Elective abortions Hx Para 1 Spontaneous abortions 2 Hx # Term Pregnancies 1 Ectopic pregnancies Hx # Pregnancies Multiple births # of living children 1 Past Pregnancies Del. Date Name GA/Weeks Outcome Route Bth Weight Infant Gen Labor Lgth Anesthesia Del Locatn Provider FOB 11/23/19 [place] 39 live - full term 6lbs 12oz Female epidural [facility] Johny 09/30/21 8 spontaneous 07/08/24 8 spontaneous [...] dates. accepts NIPT. [facility]. KW- CRL cons with dates. accepts N IPT. had last [facility] at [facility]-no complications. having significant nausea and vomiting. standing [...] today. 0 (more content not included)... Normal [facility] ([facility] Rupture Of Membraneson 05-07-2025 ROM Negative Normal Negative [facility] Comment on above: Result Comment: Amni otic fluid not present indicates No Rupture of Membranes at time of specimen collection. Performed By: #### L 205.1000 #### [facility] Laboratory [address] [place], [place], [address] OB Triage Progress Noteon OB Triage Progress Note [facility] Medical Records Department [address] [place] [address] OB Triage Progress Note 05/07/25 2149 MR#: [id number] Acct: [id number] Name: DEBI VERDUZCO Rep #: [id number] : 2000 25 From: Mariajose Ayala CNM PCP: CONCEPCION Caballero Status:DEP CLI Y DOS: Location: WPOUT Progress Notes Date of Service: 05/07/25 Progress Note: Patient presents for triage evaluation secondary to vaginal discharge at 23 weeks FHT: 140 Moderate variability reactive no decelerations category I tracing-reactive for gestational age Bogart: no Contractions Assessment and plan: Rom neg, Reactive NST, reassuring maternal and status patient discharged to home to follow-up in office. See problem list details for additional plan information. Laboratory Studies: Laboratory Tests 05/07/25 Range/Units 18:40 Vag Amniotic Fld Detect Negative (Negative) Charges/Coding Multi Select Codes Urinary/Genital Urinary/Genital CPT Codes: 33117-94 non-stress test Interp Assessment Plan (1) Placenta [...] CC: BOB Ayala; CONCEPCION Cary Signed Normal [facility] Laboratory - Chemistry and C hemistry - challengeOrdered By: Mariajose Ayala on 04-23-2025 Glucose Ql (U) Negative [facility] Laboratory - UrinalysisOrder ed By: Mariajose Ayala on 04-23-2025 Protein Ql (U) Negative [facility] Activity Leader Office Visit Reporton 04-23-2025 Activity Leader Office Visit Report [facility] [address], [address] [place] [address] OFFICE VISIT Date of Service: 04/23/25 MR#: [id number] Acct: [id number] Name: DEBI VERDUZCO Rep #: [id number] : 2000 Provider: BOB Veloz [facility] Age/Sex: 25/F Location[place] [facility] [place] Status: Signed Intake Vital Signs 02/01/25 13:03 03/25/25 13:34 04/23/25 10:44 04/23/25 10:49 Height 5 ft 5 in 5 ft 5 in 5 ft 5 in 5 ft 5 in Weight: 138 lb 8 oz BMI 23.0 BP 108/73 Intake Visit Reasons: 21wk ob Chief Complaint: 21 Week OB Blow Pit Operator Required: No Is patient in pain?: No [...] children number of children: 1 current occupation: [employer] current occupational exposures/hazards: No pets and animals: [...] physical activity do you participate in: none dania/oriental orthodox: None seatbelt use: never do you feel safe at home: Yes additional social history: Boyfriend: Johny - Works at [employer] [place] History 4 Elective abortions Hx Para 1 Spontaneous abortions 2 Hx # Term Pregnancies 1 Ectopic pregnancies Hx # Pregnancies Multiple births # of living children 1 Past Pregnancies Del. Date Name GA/Weeks Outcome Route Bth Weight Infant Gen Labor Lgth Anesthesia Del Locatn Provider FOB 11/23/19 [place] 39 live - full term 6lbs 12oz Female epidural [facility] Johny 09/30/21 8 spontaneous 07/08/24 8 spontaneous [...] with dates (more content not included)... Normal [facility] Laboratory - Chemistry and C hemistry - challengeOrdered By: Aisha Winifred on 03-25-2025 Glucose Ql (U) Negative [facility] Laboratory - UrinalysisOrder ed By: Aisha Vitale on 03-25-2025 Protein Ql (U) Negative [facility] Activity Leader Office Visit Reporton 03-25-2025 Activity Leader Office Visit Report [facility]'s [address], [address] [place] [address] OFFICE VISIT Date of Service: 03/25/25 MR#: [id number] Acct: [id number] Name: DEBI VERDUZCO Rep #: [id number] : 2000 Provider: CONCEPCION gamino Age/Sex: 25/F Location[place] [facility] [place] Status: Signed Intake Vital Signs 02/01/25 13:03 02/24/25 13:57 03/25/25 13:34 Height 5 ft 5 in 5 ft 5 in 5 ft 5 in Weight: 135 lb BMI 22.4 BP 98/60 Intake Visit Reasons: 17wk ob Chief Complaint: 17 Week OB Blow Pit Operator Required: No Is patient in pain?: No [...] children number of children: 1 current occupation: [employer] current occupational exposures/hazards: No pets and animals: [...] physical activity do you participate in: none dania/oriental orthodox: None seatbelt use: never do you feel safe at home: Yes additional social history: Boyfriend: Johny - Works at [employer] [place] History 4 Elective abortions Hx Para 1 Spontaneous abortions 2 Hx # Term Pregnancies 1 Ectopic pregnancies Hx # Pregnancies Multiple births # of living children 1 Past Pregnancies Del. Date Name GA/Weeks Outcome Route Bth Weight Infant Gen Labor Lgth Anesthesia Del Locatn Provider FOB 11/23/19 Nathalie 39 live - full term 6lbs 12oz Female epidural [facility] Johny 09/30/21 8 spontaneous 07/08/24 8 spontaneous [...] baby at (more content not included)... Normal [facility] Absolute lymphocyte countOrd ered By: Mariajose Ayala on 02-24-2025 Lymphocytes Auto (Unsp spec) [#/Vol] 1.15 10*3/uL 0.83-4.51 [facility] Absolute neutrophil countOrd ered By: Mariajose Jamie on 02-24-2025 Neutrophils (Bld) [#/Vol] 5.8 10*3/uL 2.0-7.7 [facility] Automated lymphocyte count a s percentage of total leukocytesOrdered By: Mariajose Jamie on 02-24-2025 Lymphocytes/100 WBC Auto (Unsp spec) 14.7 % Low 19-41 [facility] Basophil percentageOrdered B y: Mariajose Ayala on 02-24-2025 Basophils/100 WBC (Bld) 0.5 % 0-1 [facility] CBC W/Diff, Automatedon 01-29 Absolute Lymph 1.15 X10 3/uL Normal 0.83-4.51 [facility] Comment on above: Performed By: #### L 3890.6006, L3890.6102, BTS, L509.8002, L509.4006, L3890.6301, L100.0100 ####[facility] [address] [place], [address] Absolute Neut 5.8 X10 3/uL Normal 2.0-7.7 [facility] Comment on above: Performed By: #### L 3890.6006, L3890.6102, BTS, L509.8002, L509.4006, L3890.6301, L100.0100 ####[facility] [address] [place], [address] Basophils/100 WBC (Bld) 0.5 % Normal 0-1 [facility] Comment on above: Performed By: #### L 3890.6006, L3890.6102, BTS, L509.8002, L509.4006, L3890.6301, L100.0100 ####[facility] [address] [place], [address] Eosinophils/100 WBC (Bld) 2.4 % Normal 0-5 [facility] Comment on above: Performed By: #### L 3890.6006, L3890.6102, BTS, L509.8002, L509.4006, L3890.6301, L100.0100 ####[facility] [address] [place], [address] Erythrocyte distribution width (RBC) [Ratio] 14.5 % Normal 11.6-14.6 [facility] Comment on above: Performed By: #### L 3890.6006, L3890.6102, BTS, L509.8002, L509.4006, L3890.6301, L100.0100 ####[facility] [address] [place], [address] Hematocrit (Bld) [Volume fraction] 35.0 % Low 37-47 [facility] Comment on above: Performed By: #### L 3890.6006, L3890.6102, BTS, L509.8002, L509.4006, L3890.6301, L100.0100 ####[facility] [address] [place], [address] Hemoglobin (Bld) [Mass/Vol] 11.7 g/dL Low 12.0-15.0 [facility] Comment on above: Performed By: #### L 3890.6006, L3890.6102, BTS, L509.8002, L509.4006, L3890.6301, L100.0100 ####[facility] [address] [place], [address] IG% 0.500 Normal 0.0-0.9 [facility] Comment on above: Result Comment: IG% - Immature Granulocytes (promyelocytes, myelocytes and metamyelocytes) > 1% indicates that a LEFT SHIFT is Present. Performed By: #### L 3890.6006, L3890.6102, BTS, L509.8002, L509.4006, L3890.6301, L100.0100 ####[facility] [address] [place], [address] Lymphocytes/100 WBC (Bld) 14.7 % Low 19-41 [facility] Comment on above: Performed By: #### L 3890.6006, L3890.6102, BTS, L509.8002, L509.4006, L3890.6301, L100.0100 ####[facility] [address] [place], [address] MCH (RBC) [Entitic mass] 28.0 pg Normal 27.0-32.0 [facility] Comment on above: Performed By: #### L 3890.6006, L3890.6102, BTS, L509.8002, L509.4006, L3890.6301, L100.0100 ####[facility] [address] [place], [address] MCHC (RBC) [Mass/Vol] 33.4 g/dL Normal 32-36 [facility] Comment on above: Performed By: #### L 3890.6006, L3890.6102, BTS, L509.8002, L509.4006, L3890.6301, L100.0100 ####[facility] [address] [place], [address] MCV (RBC) [Entitic vol] 83.7 fL Normal 81-99 [facility] Comment on above: Performed By: #### L 3890.6006, L3890.6102, BTS, L509.8002, L509.4006, L3890.6301, L100.0100 ####[facility] [address] [place], [address] Monocytes/100 WBC (Bld) 7.9 % Normal 0-10 [facility] Comment on above: Performed By: #### L 3890.6006, L3890.6102, BTS, L509.8002, L509.4006, L3890.6301, L100.0100 ####[facility] [address] [place], [address] Neutrophils/100 WBC (Bld) 74.0 % High 47-70 [facility] Comment on above: Performed By: #### L 3890.6006, L3890.6102, BTS, L509.8002, L509.4006, L3890.6301, L100.0100 ####[facility] [address] [place], [address] Nucleated RBC (Bld) [#/Vol] 0 10*3/uL Normal 0-5 [facility] Comment on above: Performed By: #### L 3890.6006, L3890.6102, BTS, L509.8002, L509.4006, L3890.6301, L100.0100 ####[facility] [address] [place], [address] Platelet mean volume (Bld) [Entitic vol] 10.7 fL Normal 6.2-12.0 [facility] Comment on above: Performed By: #### L 3890.6006, L3890.6102, BTS, L509.8002, L509.4006, L3890.6301, L100.0100 ####[facility] [address] [place], [address] Platelets (Bld) [#/Vol] 207 10*3/uL Normal 150-450 [facility] Comment on above: Performed By: #### L 3890.6006, L3890.6102, BTS, L509.8002, L509.4006, L3890.6301, L100.0100 ####[facility] [address] [place], [address] RBC (Bld) [#/Vol] 4.18 10*6/uL Low 4.2-5.4 [facility] Comment on above: Performed By: #### L 3890.6006, L3890.6102, BTS, L509.8002, L509.4006, L3890.6301, L100.0100 ####[facility] [address] [place], [address] RDW SD 44.3 fl High 35.1-43.9 [facility] Comment on above: Performed By: #### L 3890.6006, L3890.6102, BTS, L509.8002, L509.4006, L3890.6301, L100.0100 ####[facility] [address] [place], [address] WBC (Bld) [#/Vol] 7.8 10*3/uL Normal 4.4-11.0 [facility] Comment on above: Performed By: #### L 3890.6006, L3890.6102, BTS, L509.8002, L509.4006, L3890.6301, L100.0100 ####[facility] [address] [place], [address] Eosinophil percentageOrdered By: Mariajose Ayala on 02-24-2025 Eosinophils/100 WBC (Bld) 2.4 % 0-5 [facility] Erythrocyte distribution wid th ratioOrdered By: Mariajose Ayala on 02-24-2025 Erythrocyte distribution width (RBC) [Ratio] 14.5 % 11.6-14.6 [facility] Erythrocyte distribution wid th standard deviationOrdered By: Mariajose Ayala on 02-24-2025 Erythrocyte distribution width (RBC) [Ratio] 44.3 fl High 35.1-43.9 [facility] HIVon 02-24-2025 HIV Non-Reactive Normal Nonreactive [facility] Comment on above: Result Comment: Non- Reactive Reactive Repeatedly reactive samples must be confirmed according to CDC recommended confirmatory algorithms. The subresults for either HIVAG or AHIV can be used as an aid in the selection of the confirmation algorithm for reactive samples. Send out specimens with Reactive results to [facility] for confirmation. Order the HIV antibody detection and differentiation: lc#[id number] Performed By: #### L 3890.6006, L3890.6102, BTS, L509.8002, L509.4006, L3890.6301, L100.0100 ####[facility] [address] [place], [address] Hematocrit Auto (Bld) [Volum e fraction]Ordered By: Mariajose Ayala on 02-24-2025 Hematocrit (Bld) [Volume fraction] 35.0 % Low 37-47 [facility] Hemoglobin measurementOrdere d By: Mariajose Ayala on 02-24-2025 Hemoglobin (Bld) [Mass/Vol] 11.7 g/dL Low 12.0-15.0 [facility] Hepatitis C Antibodyon 02-24 Hepatitis C Ab Non-Reactive Normal Nonreactive [facility] Comment on above: Result Comment: Reac tive: Presumptive evidence of antibodies to HCV. Follow CDC recommendations for supplemental testing. Non-Reactive: Antibodies to HCV were not detected; does not exclude the possibility of exposure to HCV Reactive Results are presumptive evidence of antibodies to HCV. Follow CDC recommendations for supplemental testing. Order confirmation testing: HCV Quant by PCR testing - HCVPCR #[id number] Non Reactive: < 0.8 Equivocal: >/= 0.8 to < 1.0 Reactive: >/= 1.0 The CDC requires that a reactive/equivocal HCV antibody result be sent out for confirmation. HCV Quant by PCR testing. Performed By: #### L 3890.6006, L3890.6102, BTS, L509.8002, L509.4006, L3890.6301, L100.0100 ####[facility] [address] [facility] [place], [address] Immature granulocytes/100 WB C Auto (Bld)Ordered By: Mariajose Ayala on 02-24-2025 Immature granulocytes/100 WBC (Bld) 0.500 % 0.0-0.9 [facility] Comment on above: IG% - Immature Granu locytes (promyelocytes, myelocytes and metamyelocytes) > 1% indicates that a LEFT SHIFT is Present. L3890.6102on 02-24-2025 HEP B Surf Ag Non-Reactive Normal Nonreactive [facility] Comment on above: Result Comment: Reac tive: Presumptive evidence of HBV. Repeatedly reactive samples must be confirmed using a neutralization test ([employer] HBsAg Confirmatory Test) Non-Reactive: HBsAg not detected; does not exclude the possibility of exposure to HBV Performed By: #### L 3890.6006, L3890.6102, BTS, L509.8002, L509.4006, L3890.6301, L100.0100 ####[facility] [address] [facility] [place], [address] L509.4006on 02-24-2025 Rubella IgG REAC Normal Nonreactive [facility] Comment on above: Result Comment: Anti body Result: Interpretation Non-Reactive: Non-Immune Reactive: Immune The following results were obtained with the [employer] Rubella IgG assay. Results from assays of other manufacturers cannot be used interchangeably. Performed By: #### L 3890.6006, L3890.6102, BTS, L509.8002, L509.4006, L3890.6301, L100.0100 ####[facility] [address] [facility]. [place], [place], [id number] Laboratory - Chemistry and C hemistry - challengeOrdered By: Colleen Dillard on 02-24-2025 Glucose Ql (U) Negative [facility] Laboratory - Microbiology an d Antimicrobial susceptibilityOrdered By: Mariajose Ayala on 02-24-2025 HBV surface Ag Ql (S) Non-Reactive Nonreactive [facility] Comment on above: Reactive: Presumptiv e evidence of HBV. Repeatedly reactive samples must be confirmed using a neutralization test ([employer] HBsAg Confirmatory Test)Non-Reactive: HBsAg not detected; does not exclude the possibility of exposure to HBV Laboratory - UrinalysisOrder ed By: Colleen Dillard on 02-24-2025 Protein Ql (U) Negative [facility] MCV (mean corpuscular volume ) determinationOrdered By: Mariajose Ayala on 02-24-2025 MCV (RBC) [Entitic vol] 83.7 fL 81-99 [facility] Mean corpuscular hemoglobin (MCH) determinationOrdered By: Mariajose Ayala on 02-24-2025 MCH (RBC) [Entitic mass] 28.0 pg 27.0-32.0 [facility] Mean corpuscular hemoglobin concentration (MCHC) determinationOrdered By: Mariajose Ayala on 02-24-2025 MCHC (RBC) [Mass/Vol] 33.4 g/dL 32-36 [facility] Mean platelet volume determi nationOrdered By: Mariajose Ayala on 02-24-2025 Platelet mean volume (Bld) [Entitic vol] 10.7 fL 6.2-12.0 [facility] Monocyte percentageOrdered B y: Mariajose Ayala on 02-24-2025 Monocytes/100 WBC (Bld) 7.9 % 0-10 [facility] NATERAon 02-24-2025 NATURA SEE SCANNED REPORT Normal [facility] Comment on above: Performed By: #### L 900.0098 #### [facility] Laboratory [address] [place] [address]. [place], [address] Neutrophil percentageOrdered By: Mariajose Ayala on 02-24-2025 Neutrophils/100 WBC (Bld) 74.0 % High 47-70 [facility] No Panel InformationOrdered By: Mariajose Ayala on 02-24-2025 HIV (1&2) Antibody Non-Reactive Nonreactive [facility] Comment on above: Non-ReactiveReactive Repeatedly reactive samples must be confirmed according to CDC recommended confirmatory algorithms. The subresults for either HIVAG or AHIV can be used as an aid in the selection of the confirmation algorithm for reactive samples.Send out specimens with Reactive results to [facility] for confirmation.Order the HIV antibody detection and differentiation: #[id number] Nucleated red blood cell per centageOrdered By: Mariajose Ayala on 02-24-2025 Nucleated RBC/100 WBC (Bld) [Ratio] 0 % 0-5 [facility] Activity Leader Office Visit Reporton 02-24-2025 Activity Leader Office Visit Report [facility]'s [address], [address] [place] [address] OFFICE VISIT Date of Service: 02/24/25 MR#: [id number] Acct: [id number] Name: DEBI VERDUZCO Rep #: [id number] : 2000 Provider: Dr. 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 current occupational exposures/hazards: No pets and animals: [...] physical activity do you participate in: none dania/oriental orthodox: None seatbelt use: never do you feel safe at home: Yes additional social history: Boyfriend: Johny - Works at [employer] History 4 Elective abortions Hx Para 1 Spontaneous abortions 2 Hx # Term Pregnancies 1 Ectopic pregnancies Hx # Pregnancies Multiple births # of living children 1 Past Pregnancies Del. Date Name GA/Weeks Outcome Route Bth Weight Infant Gen Labor Lgth Anesthesia Del Locatn Provider FOB 11/23/19 Nathalie 39 live - full term 6lbs 12oz Female epidural [facility] Johny 09/30/21 8 spontaneous 07/08/24 8 spontaneous [...] dates. accepts NIPT. [facility]. [facility]- CRL cons with dates. accepts N IPT. had [facility]-no complications. having significan (more content not included)... Normal [facility] Platelet countOrdered By: Ned Ayala on 02-24-2025 Platelets (Bld) [#/Vol] 207 10*3/uL 150-450 [facility] RBC Auto (Bld) [#/Vol]Ordere d By: Mariajose Ayala on 02-24-2025 RBC (Bld) [#/Vol] 4.18 10*6/uL Low 4.2-5.4 [facility] Syphilis Antibodieson 2024 Syphilis Abs Non-Reactive Normal Nonreactive [facility] Comment on above: Performed By: #### L 3890.6006, L3890.6102, BTS, L509.8002, L509.4006, L3890.6301, L100.0100 ####[facility] [address] [place], [place], [id number] Type AND Screenon 02-24-2025 Ab SCREEN GEL Negative Normal [facility] Comment on above: Order Comment: PN Performed By: #### L 3890.6006, L3890.6102, BTS, L509.8002, L509.4006, L3890.6301, L100.0100 ####[facility] [address] [place], [place], [address] White blood cell (WBC) count Ordered By: Mariajose Ayala on 02-24-2025 WBC (Bld) [#/Vol] 7.8 10*3/uL 4.4-11.0 [facility] Laboratory - Chemistry and C hemistry - challengeOrdered By: Colleen Dillard on 02-19-2025 Glucose Ql (U) Negative [facility] Laboratory - UrinalysisOrder ed By: Colleen Dillard on 02-19-2025 Protein Ql (U) Negative [facility] Activity Leader Office Visit Reporton 02-19-2025 Activity Leader Office Visit Report [address], [address] [place] [address] OFFICE VISIT Date of Service: 02/19/25 MR#: [id number] Acct: [id number] Name: DAXDEBI DSOUZAN Rep #: [id number] : 2000 Provider: Dr. Colleen Brannon, DO Age/Sex: 24/F Location: [facility] [place] Status: Signed Intake Vital Signs 02/01/25 13:03 02/19/25 14:34 02/19/25 14:36 Height 5 ft 5 in 5 ft 5 in 5 ft 5 in Weight: 137 lb 2 oz BMI 22.8 BP 120/80 Intake Visit Reasons: vaginal discharge/leaking 12wk OB Blow Pit Operator Required: No Is patient in pain?: No [...] children number of children: 1 current occupation: [employer] current occupational exposures/hazards: No pets and animals: [...] physical activity do you participate in: none dania/oriental orthodox: None seatbelt use: never do you feel safe at home: Yes additional social history: Boyfriend: Johny - Works at [employer] History 4 Elective abortions Hx Para 1 Spontaneous abortions 2 Hx # Term Pregnancies 1 Ectopic pregnancies Hx # Pregnancies Multiple births # of living children 1 Past Pregnancies Del. Date Name GA/Weeks Outcome Route Bth Weight Gen Labor Lgth Anesthesia Del Locatn Provider FOB 11/23/19 Nathalie 39 live - full term 6lbs 12oz Female epid[facility] Johny 09/30/21 8 spontaneous 07/08/24 8 spontaneous [...] dates. accepts NIPT. [facility]. [facility]- CRL cons with dates. accepts N IPT. had [facility]-no complications. having significant nausea and vomiting. standing order for IV infusions 02/19/25 -???-???-???-???-???-??? -???-???-???-???-? (more content not included)... Normal [facility] PAP I-G w/rfx hrHPV-Aptimaon 02-04-2025 ADEQ Comment Normal . [facility] Comment on above: Order Comment: Mary taylor Comment: [id number] Comment: No. of containers..01 ThinPrep Vial Result Comment: Sati sfactory for evaluation. No endocervical component is identified. Performed By: #### L 7400.0353, M100.2200, L7000.1800 ####[facility] [address] [place], [place], [id number] COMM . Normal . [facility] Comment on above: Order Comment: Speci men Comment: [id number] Comment: No. of containers..01 ThinPrep Vial Performed By: #### L 7400.0353, M100.2200, L7000.1800 ####[facility] [address] [place], [address] COMMENT Comment Normal . [facility] Comment on above: Order Comment: Speci men Comment: [id number] Comment: No. of containers..01 ThinPrep Vial Result Comment: This liquid based ThinPrep(R) pap test was screened with the use of an image guided system. Performed By: #### L 7400.0353, M100.2200, L7000.1800 ####[facility] [address] [place], [address] DIAG Comment Normal . [facility] Comment on above: Order Comment: Speci men Comment: [id number] Comment: No. of containers..01 ThinPrep Vial Result Comment: NEGA TIVE FOR INTRAEPITHELIAL LESION OR MALIGNANCY. Performed By: #### L 7400.0353, M100.2200, L7000.1800 ####[facility] [address] [place], [place], [address] HPV RFLX Comment Normal . [facility] Comment on above: Order Comment: Speci men Comment: [id number] Comment: No. of containers..01 ThinPrep Vial Result Comment: The HPV DNA reflex criteria were not met with this specimen result therefore, no HPV testing was performed. Performed at: [address] [id number] Furnace Installer: Liv Meier MD, Phone: [phone] Performed By: #### L 7400.0353, M100.2200, L7000.1800 ####[facility] [address] [place], [address] PAPSMR Comment Normal . [facility] Comment on above: Order Comment: Speci men Comment: [id number] Comment: No. of containers..01 ThinPrep Vial Result Comment: The Pap smear is a screening test designed to aid in the detection of premalignant and malignant conditions of the uterine cervix. It is not a diagnostic procedure and should not be used as the sole means of detecting cervical cancer. Both false-positive and false-negative reports do occur. Performed By: #### L 7400.0353, M100.2200, L7000.1800 ####[facility] [address] [place], [address] PERFORM Comment Normal . [facility] Comment on above: Order Comment: Speci men Comment: [id number] Comment: No. of containers..01 ThinPrep Vial Result Comment: Katalina Colon, Product Promoter Sales Person (ASCP) Performed By: #### L 7400.0353, M100.2200, L7000.1800 ####[facility] [address] [place], [address] Chlamydia/GC YOEL aptimaon CHLAMY,NUC ACID Negative Normal Negative [facility] Comment on above: Performed By: #### L 7400.0353, M100.2200, L7000.1800 ####[facility] [address] [place], [address] GC BY NUC ACID Negative Normal Negative [facility] Comment on above: Result Comment: Perf ormed at: =G - [facility] [address] [id number] Furnace Installer: Liv Meier MD, Phone: [phone] Performed By: #### L 7400.0353, M100.2200, L7000.1800 ####[facility] [address] [place], [address] Urine Cultureon 02-02-2025 [facility]RC Culture exhibits no growth. Normal [facility] Comment on above: Performed By: #### L 7400.0353, M100.2200, L7000.1800 ####[facility] [address] [place], [address] Cervical or vagninal specime n microscopic examination by cytology stain (reported asOrdered By: Mariajose Ayala on 02-01-2025 Cytology report Cyto stain Doc (Cvx/Vag) Comment . [facility] Comment on above: The Pap smear is [...] rRNA YOEL+probe Ql (Unsp spec) Negative Negative [facility] Laboratory - CytologyOrdered By: Mariajose Ayala on 02-01-2025 Product Promoter Sales Person Cyto stain Nom (Cvx/Vag) [ID] Comment . [facility] Comment on above: Vince Chan ytologist (ASCP) Laboratory - Miscellaneous t estsOrdered By: Mariajose Ayala on 02-01-2025 Service comment (Unsp spec) [Interp] . . [facility] Neisseria gonorrhoeae nuclei c acid detection by amplified probe techniqueOrdered By: Mariajose Ayala on 02-01-2025 N. gonorrhoeae DNA YOEL+probe Ql (Unsp spec) Negative Negative [facility] Comment on above: Performed at: =[address] [id number] Director: Liv Meier MD, Phone: [phone] No Panel InformationOrdered By: Mariajose Ayala on 02-01-2025 Pap Smear Specimen Adequacy Comment . [facility] Comment on above: Satisfactory for prerna luation. No endocervical component is identified. Activity Leader Office Visit Reporton 02-01-2025 Activity Leader Office Visit Report [facility]'s [address], [address] [place] [address] OFFICE VISIT Date of Service: 02/01/25 MR#: [id number] Acct: [id number] Name: DEBI VERDUZCO Rep #: [id number] : 2000 Provider: BOB Veloz ams Age/Sex: 24/F Location[place] [facility] [place] Status: Signed Intake Vital Signs 01/05/25 08:45 02/01/25 13:03 Height 5 ft 5 in 5 ft 5 in Weight: 137 lb 2 oz 138 lb BMI 22.8 22.9 BP 103/71 109/71 Intake Visit Reasons: NOB: LMP 11/26, [place] 09/02 Chief Complaint: New OB Blow Pit Operator Required: No Is patient in pain?: No [...] children number of children: 1 current occupation: [employer] current occupational exposures/hazards: No pets and animals: [...] physical activity do you participate in: none dania/oriental orthodox: None seatbelt use: never do you feel safe at home: Yes additional social history: Boyfriend: Johny - Works at [employer] History 4 Elective abortions Hx Para 1 Spontaneous abortions 2 Hx # Term Pregnancies 1 Ectopic pregnancies Hx # Pregnancies Multiple births # of living children 1 Past Pregnancies Del. Date Name GA/Weeks Outcome Route Bth Weight Infant Gen Labor Lgth Anesthesia Del Locatn Provider FOB 11/23/19 [place] 39 live - full term 6lbs 12oz Female epidural [facility] Johny 09/30/21 8 spontaneous 07/08/24 8 spontaneous [...] dates. accepts NIPT. [facility]. [facility]W- CRL cons with dates. accepts N IPT. had [facility]-no complications. having significant nausea and vomiting. standing order for IV infusions Menstrual History Last Menstrual Period: (more content not included)... Normal [facility] Urine cultureOrdered By: Bert Ayala on 02-01-2025 Bacteria identified Cx Nom (U) Culture exhibits no growth. [facility] Bacteria identifiedon 2024 Bacteria identified Cx Nom (U) Test: Urine Culture Specimen Source: Clean Catch/Voided Specimen Type: Urine Specimen Date: 01/31/20252013 Result Date: 02/02/2025 0840 Result Status: Final result Abnormal: No Resulting Lab: [facility] [address] [address] CULTURE Clinically insignificant growth based on current clinical standards. Normal [facility] Comment on above: Performed By: #### 6 30-4 ####KASANDRA Cadena ([id number])[facility] [facility] ([facility])[address] [place] [address] 98952 CBC panel Auto (Bld)on 01-31 Erythrocyte distribution width (RBC) [Ratio] 14.9 % High 11.5 - 14.5 % [facility] Hematocrit (Bld) [Volume fraction] 36.9 % 36.0 - 46.0 % [facility] Hemoglobin (Bld) [Mass/Vol] 12.1 g/dL 12.0 - 16.0 g/dL [facility] Interpretation and review of laboratory results Abnormal [facility] MCH (RBC) [Entitic mass] 27.4 pg 26.0 - 34.0 pg [facility] MCHC (RBC) [Mass/Vol] 32.8 g/dL 32.0 - 36.0 g/dL [facility] MCV (RBC) [Entitic vol] 84 fL 80 - 100 fL [facility] Nucleated RBC/100 WBC (Bld) [Ratio] 0 % [facility] Platelets (Bld) [#/Vol] 242 10*3/uL [facility] RBC (Bld) [#/Vol] 4.41 10*6/uL [facility] WBC (Bld) [#/Vol] 7.2 10*3/uL [facility] Erythrocyte distribution width (RBC) [Ratio] 14.9 % High 11.5-14.5 [facility] Comment on above: Performed By: #### 5 8410-2 #### RENUKA LOPEZ ([id number]) [facility] ([facility]) [address] [place] [address] 45674 Hematocrit (Bld) [Volume fraction] 36.9 % Normal 36.0-46.0 [facility] Comment on above: Performed By: #### 5 8410-2 #### RENUKA LOPEZ ([id number]) [facility] ([facility]) [address] [place] [address] 84272 Hemoglobin (Bld) [Mass/Vol] 12.1 g/dL Normal 12.0-16.0 [facility] Comment on above: Performed By: #### 5 8410-2 #### RENUKA LOPEZ ([id number]) [facility] ([facility]) [address] [place] [address] 94448 MCH (RBC) [Entitic mass] 27.4 pg Normal 26.0-34.0 [facility] Comment on above: Performed By: #### 5 8410-2 #### RENUKA LOPEZ ([id number]) [facility] ([facility]) [address] [place] [address] 15125 MCHC (RBC) [Mass/Vol] 32.8 g/dL Normal 32.0-36.0 [facility] Comment on above: Performed By: #### 5 8410-2 #### RENUKA LOPEZ ([id number]) [facility] ([facility]) [address] [place] [address] 28349 MCV (RBC) [Entitic vol] 84 fL Normal 80-100 [facility] Comment on above: Performed By: #### 5 8410-2 #### RENUKA LOPEZ ([id number]) [facility] ([facility]) [address] [place] [address] 86281 Nucleated RBC/100 WBC (Bld) [Ratio] 0.0 /100 WBCs Normal 0.0-0.0 [facility] Comment on above: Performed By: #### 5 8410-2 #### RENUKA LOPEZ ([id number]) [facility] ([facility]) [address] [place] [address] 20095 Platelets (Bld) [#/Vol] 242 x10*3/uL Normal 150-450 [facility] Comment on above: Performed By: #### 5 8410-2 #### RENUKA LOPEZ ([id number]) [facility] ([facility]) [address] [place] [address] 18963 RBC (Bld) [#/Vol] 4.41 x10*6/uL Normal 4.00-5.20 [facility] Comment on above: Performed By: #### 5 8410-2 #### RENUKA LOPEZ ([id number]) [facility] ([facility]) [address] [place] [address] WBC (Bld) [#/Vol] 7.2 x10*3/uL Normal 4.4-11.3 [facility] Comment on above: Performed By: #### 5 8410-2 #### RENUKA LOPEZ ([id number]) [facility] ([facility]) [address] [place] [address] Comprehensive metabolic 2000 panelon 01-31-2025 Albumin BCP dye [Mass/Vol] 4.1 g/dL 3.4 - 5.0 g/dL [facility] ALP [Catalytic activity/Vol] 69 U/L 33 - 110 U/L [facility] ALT With P-5'-P [Catalytic activity/Vol] 8 U/L 7 - 45 U/L [facility] Comment on above: Patients treated wit h Sulfasalazine may generate falsely decreased results for ALT. Anion gap [Moles/Vol] 14 mmol/L 10 - 2 0 mmol/L [facility] AST With P-5'-P [Catalytic activity/Vol] 11 U/L 9 - 39 U/L [facility] Bilirubin [Mass/Vol] 0.3 mg/dL 0.0 - 1 .2 mg/dL [facility] Calcium [Mass/Vol] 9.4 mg/dL 8.6 - 10. 3 mg/dL [facility] Chloride [Moles/Vol] 104 mmol/L 98 - 10 7 mmol/L [facility] CO2 [Moles/Vol] 23 mmol/L 21 - 32 mmol/L [facility] Creatinine [Mass/Vol] 0.47 mg/dL Low 0.50 - 1.05 mg/dL [facility] eGFR - PINF [facility] Comment on above: Calculations of nilson mated GFR are performed using the 2020 CKD-EPI Study Refit equation without the race variable for the IDMS-Traceable creatinine methods. https://jasn.asnjournals.org/content/early//ASN.19900 77885 Glucose [Mass/Vol] 80 mg/dL 74 - 99 mg/dL [facility] Interpretation and review of laboratory results Abnormal [facility] Potassium [Moles/Vol] 3.6 mmol/L 3.5 - 5.3 mmol/L [facility] Protein [Mass/Vol] 7.1 g/dL 6.4 - 8.2 g/dL [facility] Sodium [Moles/Vol] 137 mmol/L 136 - 145 mmol/L [facility] Urea nitrogen [Mass/Vol] 6 mg/dL 6 - 23 mg/dL [facility] Albumin BCP dye [Mass/Vol] 4.1 g/dL Normal 3.4-5.0 [facility] Comment on above: Performed By: #### 2 4323-8 #### RENUKA LOPEZ ([id number]) [facility] ([facility]) [facility] [address] [place] [address] ALP [Catalytic activity/Vol] 69 U/L Normal 33-110 [facility] Comment on above: Performed By: #### 2 4323-8 #### RENUKA LOPEZ ([id number]) [facility] ([facility]) [address] [place] [address] 35330 ALT With P-5'-P [Catalytic activity/Vol] 8 U/L Normal 7-45 [facility] Comment on above: Result Comment: Lynsey ents treated with Sulfasalazine may generate falsely decreased results for ALT. Performed By: #### 2 4323-8 #### RENUKA LOPEZ ([id number]) [facility] ([facility]) [address] [place] [address] Anion gap [Moles/Vol] 14 mmol/L Normal 10-20 [facility] Comment on above: Performed By: #### 2 4323-8 #### RENUKA LOPEZ ([id number]) [facility] ([facility]) [address] [place] [address] AST With P-5'-P [Catalytic activity/Vol] 11 U/L Normal 9-39 [facility] Comment on above: Performed By: #### 2 4323-8 #### RENUKA LOPEZ ([id number]) [facility] ([facility]) [address] [place] [address] Bilirubin [Mass/Vol] 0.3 mg/dL Normal 0.0-1.2 [facility] Comment on above: Performed By: #### 2 4323-8 #### RENUKA LOPEZ ([id number]) [facility] ([facility]) [address] [place] [address] 72425 Calcium [Mass/Vol] 9.4 mg/dL Normal 8.6-10.3 [facility] Comment on above: Performed By: #### 2 4323-8 #### RENUKA LOPEZ ([id number]) [facility] ([facility]) [address] [place] [address] Chloride [Moles/Vol] 104 mmol/L Normal 98-107 [facility] Comment on above: Performed By: #### 2 4323-8 #### RENUKA LOPEZ ([id number]) [facility] ([facility]) [address] [place] [address] CO2 [Moles/Vol] 23 mmol/L Normal 21-32 [facility] Comment on above: Performed By: #### 2 4323-8 #### RENUKA LOPEZ ([id number]) [facility] ([facility]) [address] [place] [address] Creatinine [Mass/Vol] 0.47 mg/dL Low 0.50-1.05 [facility] Comment on above: Performed By: #### 2 4323-8 #### RENUKA LOPEZ ([id number]) [facility] ([facility]) [address] [place] [address] GFR/1.73 sq M.predicted MDRD (S/P/Bld) [Vol rate/Area] mL/min/{1.73_m2} Normal >60 [facility] Comment on above: Result Comment: Calc ulations of estimated GFR are performed using the 2020 CKD-EPI Study Refit equation without the race variable for the IDMS-Traceable creatinine methods. https://jasn.asnjournals.org/content//ASN.75301 69085 Performed By: #### 2 4323-8 #### RENUKA LOPEZ ([id number]) [facility] ([facility]) [address] [place] [address] 76938 Glucose [Mass/Vol] 80 mg/dL Normal 74-99 [facility] Comment on above: Performed By: #### 2 4323-8 #### RENUKA LOPEZ ([id number]) [facility] ([facility]) [address] [place] [address] 03531 Potassium [Moles/Vol] 3.6 mmol/L Normal 3.5-5.3 [facility] Comment on above: Performed By: #### 2 4323-8 #### RENUKA LOEPZ ([id number]) [facility] ([facility]) [address] [place] [address] 79948 Protein [Mass/Vol] 7.1 g/dL Normal 6.4-8.2 [facility] Comment on above: Performed By: #### 2 4323-8 #### RENUKA LOPEZ ([id number]) [facility] ([facility]) [address] [place] [address] 34939 Sodium [Moles/Vol] 137 mmol/L Normal 136-145 [facility] Comment on above: Performed By: #### 2 4323-8 #### RENUKA LOPEZ ([id number]) [facility] ([facility]) [address] [place] [address] 92395 Urea nitrogen [Mass/Vol] 6 mg/dL Normal 6-23 [facility] Comment on above: Performed By: #### 2 4323-8 #### RENUKA LOPEZ ([id number]) [facility] ([facility]) [address] [place] [address] 47392 No Panel Informationon 01-31 Interpretation and review of laboratory results Abnormal [facility] Urinalysis complete W Reflex Culture panel (U)on 01-31-2025 Appearance (U) Turbid Abnormal Clear [facility] Bilirubin (U) [Mass/Vol] Negative NEGATIVE mg/dL [facility] Color (U) Light-Yellow Light-Yellow , Yellow, Dark-Yellow [facility] Glucose Auto test strip (U) [Mass/Vol] Normal Normal mg/dL [facility] Ketones (U) [Mass/Vol] 40 (2+) Abnormal NEGAT BERNADETTE mg/dL [facility] Leukocyte esterase Auto test strip Ql (U) 500 Ubaldo/uL Abnormal NEGATIVE [facility] Nitrite Auto test strip Ql (U) Negative NEGATIVE [facility] pH (U) 6.5 [pH] 5.0, 5.5, 6.0, 6.5, 7.0, 7.5, 8.0 [facility] Protein (U) [Mass/Vol] Negative NEGAT BERNADETTE, 10 (TRACE), 20 (TRACE) mg/dL [facility] RBC (U) [#/Vol] Negative NEGATIVE mg/dL [facility] Specific gravity (U) [Rel density] 1.019 1.005 - 1.035 [facility] Urobilinogen (U) [Mass/Vol] Normal Normal mg/dL [facility] Appearance (U) Turbid Normal Clear [facility] Comment on above: Performed By: #### 5 8077-9 #### RENUKA LOPEZ ([id number]) [facility] ([facility]) [address] [place] [address] Bilirubin (U) [Mass/Vol] Negative Normal NEGATIVE [facility] Comment on above: Performed By: #### 5 8077-9 #### RENUKA LOPEZ ([id number]) [facility] ([facility]) [address] [place] [address] 23763 Color (U) Light-Yellow Normal Light-Yellow , Yellow, Dark-Yellow [facility] Comment on above: Performed By: #### 5 8077-9 #### RENUKA LOPEZ ([id number]) [facility] ([facility]) [address] [place], [place] [address] Glucose Auto test strip (U) [Mass/Vol] Normal Normal Normal [facility] Comment on above: Performed By: #### 5 8077-9 #### RENUKA LOPEZ ([id number]) [facility] ([facility]) [address] [place] [address] Ketones (U) [Mass/Vol] 40 (2+) Abnormal NEGATIVE [facility] on above: Performed By: #### 5 8077-9 #### RENUKA LOPEZ ([id number]) [facility] ([facility]) [address] [place] [address] Leukocyte esterase Auto test strip Ql (U) 500 Ubaldo/uL Abnormal NEGATIVE [facility] Comment on above: Performed By: #### 5 8077-9 #### RENUKA LOPEZ ([id number]) [facility] ([facility]) [address] [place] [address] Nitrite Auto test strip Ql (U) Negative Normal NEGATIVE [facility] Comment on above: Performed By: #### 5 8077-9 #### RENUKA LOPEZ ([id number]) [facility] ([facility]) [address] [place] [address] 19581 pH (U) 6.5 [pH] Normal 5.0, 5.5, 6.0, 6.5, 7.0, 7.5, 8.0 [facility] Comment on above: Performed By: #### 5 8077-9 #### RENUKA LOPEZ ([id number]) [facility] ([facility]) [address] [place] [address] 59348 Protein (U) [Mass/Vol] Negative Normal NEGAT BERNADETTE, 10 (TRACE), 20 (TRACE) [facility] Comment on above: Performed By: #### 5 8077-9 #### RENUKA LOPEZ ([id number]) [facility] ([facility]) [address] [place] [address] 37165 RBC (U) [#/Vol] Negative Normal NEGATIVE [facility] Comment on above: Performed By: #### 5 8077-9 #### RENUKA LOPEZ ([id number]) [facility] ([facility]) [address] [place] [address] Specific gravity (U) [Rel density] 1.019 Normal 1.005-1.035 [facility] Comment on above: Performed By: #### 5 8077-9 #### RENUKA LOPEZ ([id number]) [facility] ([facility]) [address] [place] [address] Urobilinogen (U) [Mass/Vol] Normal Normal Normal [facility] Comment on above: Performed By: #### 5 8077-9 #### RENUKA LOPEZ ([id number]) [facility] ([facility]) [address] [place] [address] Urinalysis microscopic panel Auto Ql (U)on 01-31-2025 Bacteria Auto (Urine sed) [#/Area] 1+ Abnormal NONE SEEN /HPF [facility] Epithelial cells.squamous Auto (Urine sed) [#/Area] 1-9 (SPARSE) Reference range not established. /HPF [facility] Mucus Auto (Urine sed) [#/Area] FEW Reference range not established. /LPF [facility] RBC Auto (Urine sed) [#/Area] 3-5 NONE, 1-2, 3-5 /HPF [facility] WBC Auto (Urine sed) [#/Area] 6-10 Abnormal 1-5, NONE /HPF [facility] Bacteria Auto (Urine sed) [#/Area] 1+ /HPF Abnormal NONE SEEN [facility] Comment on above: Performed By: #### 5 3315-8 #### RENUKA LOPEZ ([id number]) [facility] ([facility]) [address] [place] [address] Epithelial cells.squamous Auto (Urine sed) [#/Area] 1-9 (SPARSE) Normal Reference range not established. [facility] Comment on above: Performed By: #### 5 3315-8 #### RENUKA LOPEZ ([id number]) [facility] ([facility]) [address] [place] [address] Mucus Auto (Urine sed) [#/Area] FEW Normal Reference range not established. [facility] Comment on above: Performed By: #### 5 3315-8 #### RENUKA LOPEZ ([id number]) [facility] ([facility]) [address] [place] [address] RBC Auto (Urine sed) [#/Area] 3-5 Normal NONE, 1-2, 3-5 [facility] Comment on above: Performed By: #### 5 3315-8 #### RENUKA LOPEZ ([id number]) [facility] ([facility]) [address] [place] [address] WBC Auto (Urine sed) [#/Area] 6-10 Abnormal 1-5, NONE [facility] Comment on above: Performed By: #### 5 3315-8 #### RENUKA LOPEZ ([id number]) [facility] ([facility]) [address] [place] [address] 12608 Serum human chorionic gonado tropin detection for pregnancyOrdered By: Mariajose Ayala on 01-28-2025 HCG ( test) Ql [id number] mIU/mL High <9 [facility] Comment on above: Gestational Age0.2-1 Week: 5-50 mIU/mL1-2 Weeks: 50-500 mIU/mL2-3 Weeks: 100-5000 mIU/mL3-4 Weeks: 500-10,000 mIU/mL4-5 Weeks:1000-50,000 mIU/mL5-6 Weeks: 10,000-100,000 mIU/mL6-8 Weeks: 15,000-200,000 mIU/mL2-3 Months:10,000-100,000 mIU/mL Transvaginal w/Preg USon Transvaginal w/Preg US [facility] Imaging Services [address] [place] [address] Transvaginal w/Preg US MR#: [id number] Acct: [id number] Name: DEBI VERDUZCO Rep #: [id number] : 2000 F 24 From: Camron Scott MD PCP: [facility] Status: REG CLI Study: Transvaginal w/Preg US Date of Exam: 01/28/25 Exam# [id number] Ordering Dr: Mariajose Ayala CNM PROCEDURE: TRANSVAGINAL [...] and 0 days, [place] 09/02/2025. Reading Location: [id number] CC: BOB Ayala; [facility]CE[facility] [place] [employer] Operator: Signed Normal [facility] hCG Titer Quant., Serumon HCG QUANT. 056204 mIU/mL High <9 non-preg [facility] Comment on above: Result Comment: Gest ational Age 0.2-1 Week: 5-50 mIU/mL 1-2 Weeks: 50-500 mIU/mL 2-3 Weeks: 100-5000 mIU/mL 3-4 Weeks: 500-10,000 mIU/mL 4-5 Weeks:1000-50,000 mIU/mL 5-6 Weeks: 10,000-100,000 mIU/mL 6-8 Weeks: 15,000-200,000 mIU/mL 2-3 Months:10,000-100,000 mIU/mL Performed By: #### L 700.8000 #### [facility] Laboratory [facility] [place], [address] CHLAMYDIA/N. GONORRHOEAE RNA , TMA, UROGENITALon 01-15-2025 CHLAMYDIA TRACHOMATIS RNA, TMA, UROGENITAL Not detected Normal NOT DETECTED [facility] Comment on above: Performed By: #### 3 95, 17792 #### [facility] [place] [address] Sail Finisher Machine: Kamlesh Ash MD COMMENT Normal [facility] Comment on above: Result Comment: The analytical performance characteristics of this assay, when used to test SurePath(TM) specimens have been determined by [employer]. The modifications have not been cleared or approved by the FDA. This assay has been validated pursuant to the CLIA regulations and is used for clinical purposes. For additional information, please refer to https://education.[employer]/faq/PCL200 (This link is being provided for information/ educational purposes only.) Performed By: #### 3 95, 44226 #### [facility] [place] [address] Sail Finisher Machine: Kamlesh Ash MD NEISSERIA GONORRHOEAE RNA, TMA, UROGENITAL Not detected Normal NOT DETECTED [facility] Comment on above: Performed By: #### 3 95, 96497 #### [facility] [place] [address] Sail Finisher Machine: Kamlesh Ash MD CULTURE, URINE, ROUTINEon Bacteria identified Cx Nom (U) SEE NOTE Normal [facility] Comment on above: Result Comment: CULTURE, URINE, ROUTINE Micro Number: [id number] Test Status: Final Specimen Source: Urine, clean catch Specimen Quality: Adequate Result: No Growth Performed By: #### 3 95, 63035 #### [facility] [place] [address] Sail Finisher Machine: Kamlesh Ash MD Laboratory - Chemistry and C hemistry - challengeOrdered By: Meena Us on 01-05-2025 HCG ( test) Ql (U) Positive [facility] Office Visit Reporton 2024 Office Visit Report [facility] [address] [place] [address] OFFICE VISIT Date of Service: 01/05/25 MR#: [id number] Acct: [id number] Patient: DEBI VERDUZCO Rep #: [id number] : 2000 Provider: Dr. 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 3 mg/dL [facility] Chloride [Moles/Vol] 108 mmol/L High 98 - 10 7 mmol/L [facility] CO2 [Moles/Vol] 24 mmol/L 21 - 32 mmol/L [facility] Creatinine [Mass/Vol] 0.56 mg/dL 0.50 - 1.05 mg/dL [facility] eGFR - PINF [facility] Comment on above: Calculations of nilson mated GFR are performed using the 2020 CKD-EPI Study Refit equation without the race variable for the IDMS-Traceable creatinine methods. https://jasn.asnjournals.org/content//ASN.69138 45321 Glucose [Mass/Vol] 87 mg/dL 74 - 99 mg/dL [facility] Interpretation and review of laboratory results Abnormal [facility] Potassium [Moles/Vol] 3.8 mmol/L 3.5 - 5.3 mmol/L [facility] Sodium [Moles/Vol] 138 mmol/L 136 - 145 mmol/L [facility] Urea nitrogen [Mass/Vol] 5 mg/dL Low 6 - 23 mg/dL [facility] Anion gap [Moles/Vol] 10 mmol/L Normal 10-20 [facility] Comment on above: Performed By: #### 2 4321-2 #### RENUKA LOPEZ ([id number]) [facility] ([facility]) [address] [place] [address] Calcium [Mass/Vol] 8.7 mg/dL Normal 8.6-10.3 [facility] Comment on above: Performed By: #### 2 4321-2 #### RENUKA LOPEZ ([id number]) [facility] ([facility]) [address] [place] [address] Chloride [Moles/Vol] 108 mmol/L High 98-107 [facility] Comment on above: Performed By: #### 2 4321-2 #### RENUKA LOPEZ ([id number]) [facility] ([facility]) [address] [place] [address] CO2 [Moles/Vol] 24 mmol/L Normal 21-32 [facility] Comment on above: Performed By: #### 2 4321-2 #### RENUKA LOPEZ ([id number]) [facility] ([facility]) [address] [place] [address] 002[address] Creatinine [Mass/Vol] 0.56 mg/dL Normal 0.50-1.05 [facility] Comment on above: Performed By: #### 2 4321-2 #### RENUKA LOPEZ ([id number]) [facility] ([facility]) [address] [place] [address] 87314 GFR/1.73 sq M.predicted MDRD (S/P/Bld) [Vol rate/Area] mL/min/{1.73_m2} Normal >60 [facility] Comment on above: Result Comment: Calc ulations of estimated GFR are performed using the 2020 CKD-EPI Study Refit equation without the race variable for the IDMS-Traceable creatinine methods. https://jasn.asnjournals.org/content/early//ASN.80836 02262 Performed By: #### 2 4321-2 #### RENUKA LOPEZ ([id number]) [facility] ([facility]) [address] [place] [address] 98573 Glucose [Mass/Vol] 87 mg/dL Normal 74-99 [facility] Comment on above: Performed By: #### 2 4321-2 #### RENUKA LOPEZ ([id number]) [facility] ([facility]) [address] [place] [address] 85000 Potassium [Moles/Vol] 3.8 mmol/L Normal 3.5-5.3 [facility] Comment on above: Performed By: #### 2 4321-2 #### RENUKA LOPEZ ([id number]) [facility] ([facility]) [address] [place] [address] 89283 Sodium [Moles/Vol] 138 mmol/L Normal 136-145 [facility] Comment on above: Performed By: #### 2 4321-2 #### RENUKA LOPEZ ([id number]) [facility] ([facility]) [address] [place] [address] Urea nitrogen [Mass/Vol] 5 mg/dL Low 6-23 [facility] Comment on above: Performed By: #### 2 4321-2 #### RENUKA LOPEZ ([id number]) [facility] ([facility]) [address] [place] [address] CBC W Auto Differential pane l (Bld)on 10-30-2024 Basophils (Bld) [#/Vol] 0.04 10*3/uL [facility] Basophils/100 WBC (Bld) 0.9 % 0.0 - 2.0 % [facility] Eosinophils (Bld) [#/Vol] 0.09 10*3/uL [facility] Eosinophils/100 WBC (Bld) 1.9 % 0.0 - 6.0 % [facility] Erythrocyte distribution width (RBC) [Ratio] 13.8 % 11.5 - 14.5 % [facility] Hematocrit (Bld) [Volume fraction] 35.1 % Low 36.0 - 46.0 % [facility] Hemoglobin (Bld) [Mass/Vol] 11.1 g/dL Low 12.0 - 16.0 g/dL [facility] Immature granulocytes (Bld) [#/Vol] 0.01 10*3/uL [facility] Immature granulocytes/100 WBC (Bld) 0.2 % 0.0 - 0.9 % [facility] Comment on above: Immature Granulocyte Count (IG) includes promyelocytes, myelocytes and metamyelocytes but does not include bands. Percent differential counts (%) should be interpreted in the context of the absolute cell counts (cells/UL). Interpretation and review of laboratory results Abnormal [facility] Lymphocytes (Bld) [#/Vol] 0.93 10*3/uL Low [facility] Lymphocytes/100 WBC (Bld) 20 % 13.0 - 44.0 % [facility] MCH (RBC) [Entitic mass] 25.6 pg Low 26.0 - 34.0 pg [facility] MCHC (RBC) [Mass/Vol] 31.6 g/dL Low 32.0 - 36.0 g/dL [facility] MCV (RBC) [Entitic vol] 81 fL 80 - 100 fL [facility] Monocytes (Bld) [#/Vol] 0.57 10*3/uL [facility] Monocytes/100 WBC (Bld) 12.2 % 2.0 - 10.0 % [facility] Neutrophils (Bld) [#/Vol] 3.02 10*3/uL [facility] Comment on above: Percent differential counts (%) should be interpreted in the context of the absolute cell counts (cells/uL). Neutrophils/100 WBC (Bld) 64.8 % 40.0 - 80.0 % [facility] Nucleated RBC/100 WBC (Bld) [Ratio] 0 % [facility] Platelets (Bld) [#/Vol] 201 10*3/uL [facility] RBC (Bld) [#/Vol] 4.33 10*6/uL [facility] WBC (Bld) [#/Vol] 4.7 10*3/uL [facility] Basophils (Bld) [#/Vol] 0.04 x10*3/uL Normal 0.00-0.10 [facility] Comment on above: Performed By: #### 5 7021-8 #### RENUKA LOPEZ ([id number]) [facility] ([facility]) [address] [place] [address]41 Basophils/100 WBC (Bld) 0.9 % Normal 0.0-2.0 [facility] Comment on above: Performed By: #### 5 7021-8 #### RENUKA LOPEZ ([id number]) [facility] ([facility]) [facility] [place] [address] Eosinophils (Bld) [#/Vol] 0.09 x10*3/uL Normal 0.00-0.70 [facility] Comment on above: Performed By: #### 5 7021-8 #### RENUKA LOPEZ ([id number]) [facility] ([facility]) [address] [place] [address]404 Eosinophils/100 WBC (Bld) 1.9 % Normal 0.0-6.0 [facility] Comment on above: Performed By: #### 5 7021-8 #### RENUKA LOPEZ ([id number]) [facility] ([facility]) [address] [place] [address] Erythrocyte distribution width (RBC) [Ratio] 13.8 % Normal 11.5-14.5 [facility] Comment on above: Performed By: #### 5 7021-8 #### RENUKA LOPEZ ([id number]) [facility] ([facility]) [address] [place] [address] Hematocrit (Bld) [Volume fraction] 35.1 % Low 36.0-46.0 [facility] Comment on above: Performed By: #### 5 7021-8 #### RENUKA LOPEZ ([id number]) [facility] ([facility]) [address] [place] [address] Hemoglobin (Bld) [Mass/Vol] 11.1 g/dL Low 12.0-16.0 [facility] Comment on above: Performed By: #### 5 7021-8 #### RENUKA LOPEZ ([id number]) [facility] ([facility]) [address] [place] [address]178 Immature granulocytes (Bld) [#/Vol] 0.01 x10*3/uL Normal 0.00-0.70 [facility] Comment on above: Performed By: #### 5 7021-8 #### RENUKA LOPEZ ([id number]) [facility] ([facility]) [address] [place] [address]7736 Immature granulocytes/100 WBC (Bld) 0.2 % Normal 0.0-0.9 [facility] Comment on above: Result Comment: Arielle ture Granulocyte Count (IG) includes promyelocytes, myelocytes and metamyelocytes but does not include bands. Percent differential counts (%) should be interpreted in the context of the absolute cell counts (cells/UL). Performed By: #### 5 7021-8 #### RENUKA LOPEZ ([id number]) [facility] ([facility]) [address] [place] [address]37 Lymphocytes (Bld) [#/Vol] 0.93 x10*3/uL Low 1.20-4.80 [facility] Comment on above: Performed By: #### 5 7021-8 #### RENUKA LOPEZ ([id number]) [facility] ([facility]) [address] [place] [address] Lymphocytes/100 WBC (Bld) 20.0 % Normal 13.0-44.0 [facility] Comment on above: Performed By: #### 5 7021-8 #### RENUKA LOPEZ ([id number]) [facility] ([facility]) [address] [place] [address] MCH (RBC) [Entitic mass] 25.6 pg Low 26.0-34.0 [facility] Comment on above: Performed By: #### 5 7021-8 #### RENUKA LOPEZ ([id number]) [facility] ([facility]) [address] [place] [address]29 MCHC (RBC) [Mass/Vol] 31.6 g/dL Low 32.0-36.0 [facility] Comment on above: Performed By: #### 5 7021-8 #### RENUKA LOPEZ ([id number]) [facility] ([facility]) [address] [place] [address] 52370 MCV (RBC) [Entitic vol] 81 fL Normal 80-100 [facility] Comment on above: Performed By: #### 5 7021-8 #### RENUKA LOPEZ ([id number]) [facility] ([facility]) [address] [place] [address] 85148 Monocytes (Bld) [#/Vol] 0.57 x10*3/uL Normal 0.10-1.00 [facility] Comment on above: Performed By: #### 5 7021-8 #### RENUKA LOPEZ ([id number]) [facility] ([facility]) [address] [place] [address] Monocytes/100 WBC (Bld) 12.2 % Normal 2.0-10.0 [facility] Comment on above: Performed By: #### 5 7021-8 #### RENUKA LOPEZ ([id number]) [facility] ([facility]) [address] [place] [address] 20947 Neutrophils (Bld) [#/Vol] 3.02 x10*3/uL Normal 1.20-7.70 [facility] Comment on above: Result Comment: Perc ent differential counts (%) should be interpreted in the context of the absolute cell counts (cells/uL). Performed By: #### 5 7021-8 #### RENUKA LOPEZ ([id number]) [facility] ([facility]) [address] [place] [address] 20678 Neutrophils/100 WBC (Bld) 64.8 % Normal 40.0-80.0 [facility] Comment on above: Performed By: #### 5 7021-8 #### RENUKA LOPEZ ([id number]) [facility] ([facility]) [address] [place] [address] 63179 Nucleated RBC/100 WBC (Bld) [Ratio] 0.0 /100 WBCs Normal 0.0-0.0 [facility] Comment on above: Performed By: #### 5 7021-8 #### RENUKA LOPEZ ([id number]) [facility] ([facility]) [address] [place] [address] 74240 Platelets (Bld) [#/Vol] 201 x10*3/uL Normal 150-450 [facility] Comment on above: Performed By: #### 5 7021-8 #### RENUKA LOPEZ ([id number]) [facility] ([facility]) [address] [place] [address] 26396 RBC (Bld) [#/Vol] 4.33 x10*6/uL Normal 4.00-5.20 [facility] Comment on above: Performed By: #### 5 7021-8 #### RENUKA LOPEZ ([id number]) [facility] ([facility]) [address] [place] [address] WBC (Bld) [#/Vol] 4.7 x10*3/uL Normal 4.4-11.3 [facility] Comment on above: Performed By: #### 5 7021-8 #### RENUKA LOPEZ ([id number]) [facility] ([facility]) [address] [place] [address] HCG ( test) IA.rapi d Ql (U)Ordered By: Shawna Rodriguez on 10-30-2024 HCG ( test) Ql (U) Negative NEGATIVE [facility] Interpretation and review of laboratory results Normal [facility] HCG ( test) IA.rapi d Ql (U)on 10-30-2024 HCG ( test) Ql (U) Negative Normal NEGATIVE [facility] Comment on above: Performed By: #### 8 0384-1 #### RENUKA LOPEZ ([id number]) [facility] ([facility]) [address] [place] [address] HCG ( test) Ql (U)o n 07-06-2024 Interpretation and review of laboratory results Abnormal [facility] Work Phone: Preg Test, Ur Positive Abnormal Negative [facility] Work Phone: [facility] Work Phone: US Pelvis transvaginalon CRL 15.8 mm [facility] Work Phone: Comment on above: Live intrauterine pr egnancy at 8 weeks gestation which is consistent with LMP. EDC February 13, 2025 Live intrauterine at 8 weeks gestation consistent with LMP. EDC February 13, 2025 [facility] Work Phone: [facility] Work Phone: Radiology Study observation (narrative) [facility] Work Phone: CNPNon 06-30-2024 CNPN Telephone (OBGYWM) -------- DEBI VERDUZCO ([id number]) 2000 F Date Time Provider Department 06/30/24 [...] Encounter Status:Closed by IESHA EDDY on 07/07/24 [facility] XR FOOT LEFT 3+ VIEWSon XR FOOT LEFT 3+ VIEWS Interpreted By: Shae Jules, STUDY: Left foot dated 05/02/2024. INDICATION: Signs/Symptoms:ATTN GREAT AND 2ND TOES COMPARISON: None. ACCESSION NUMBER(S): [id number] ORDERING CLINICIAN: FILEMON RUIZ TECHNIQUE: Three views [...] Shae Dawn 05/02/2024 9:54 AM Dictation workstation: [id number] [facility] Surgical pathology studyOrde red By: Shae Sanchez on 03-13-2024 Laboratory comment Josue (Report) [id number] ZzEwMzNcZnRuYmpcdWMxIHtc fhPvDVhfs8VjL6KdDpMbABex bnNpXGRlZmxhbmcxMDMzXGZ0 unBiBOUpYJmlMZWyCLhlWr5a sFEjhNjzRlUnNXEip5qtrdUC XAxgADBDDGa3r0wzVDJoQzF0 vZAfQViyH7ekhkQrnYPaV5Gk w9UnGRh9cJ66XBTgfV2efIJi DErpknPhWpI5MMbwPSDbGwI0 KGJciJBbIOZbG7fqGMNyPLof TGLdYEdpjCYzMGN0jYgzg2B6 bGVzaGVldHtcZjBcZnMyMiBO d0OmKTl0rHjlP6BbPWHhFfT5 bHQgUGFyYWdyYXBoIEZvbnQ7 mI53YHhhjpQ4aNPrl1Qbi73u u704pH1leTIoXNN7PLVyFQHr vBPuTYJyYWN4AYGsfEHeF5rr NdFktXNlM9InAaOryQHaY4Nx QgWauOBsK6WaJxHxaFMmPDXz bGE9NJmqy332CEX3HiPwKL0c A7Bgf6B0aB8kiYHlAEMubRZa GzEnTHZgcz8zjZWvIPxrj6Sj CPJ6hbQ3zSMowMDqLUKlPM47 Rowvh3CgNtxqQHC8SMGtuxVu b6Pbc0ddLpKpmuOpR3dmD5Ia CHKsMDLaCAYbUqGzklJhq9Nv t6EnzIZthDl8n7lzJVUvBQKn cLsuf8wzYOK3ZIMyJ8E1pOQk l0sjTAtgSBRsyIU9qrO5JVzw BYPgkjR5knR6XWzhXMMmvJU5 qnA3PRrtORLfCuU8igX5ILod KFBkTWZ1YmJeORUpb2Ekhgzc SsMpp7StcHXaDDalV79lz451 JZPqdnOsU0hkbJKssmcjpOSo holfTEkqebW1TVRjXQUlHTov XGYxXGZzMjBcbGFuZzEwMzNc aGljaFxmMVxkYmNoXGYxXGxv F9geQdOfZgUgZWNMeHB0tHVi b7mwkuT4iRRjQQ3mHATkbTKa qzQah1G1ELW8tPLzzN2oyPCi CNMdjSQnnwYktj77nNEftKI0 DJAaVPDcaAYegV2zQKSqOSDR mV0pqPNZrpFbmxKkARPubJop xr7YoNBjod5wxITvD8IpoYce aWVzIHRoYXQgdGhleSBoYXZl OKRwepdmx1PtYDYsuMQgF8Su YI8cXRXxog83 [facility] Work Phone: Pathology report Cancer Narrative Surgical Pathology Case: [id number] Authorizing Provider: Forrest Mohr MD Collected: 03/05/2024 0734 Ordering Location: [facility] [place] Received: 03/05/[address] [place] [address] Pathologist: Shae Sanchez MD Specimens: A) - ILEUM BIOPSY, ILEUM BX B) - COLON - RANDOM BIOPSY [facility] Work Phone: Pathology report final diagnosis Narrative q0zxePQyKAOytPIaJUPvS5zh jcZcUBYvfMDvB3YlmdetUWlc XZ2pRJ2dhJrhaADzkUDzYNZn OhIae6spy176rAEwt9sdYWGX xnkyaBh7uDljB67zy4S4Ocah M6ssXIBxSGdgXPLnQEchvWPh UQp4CPJgvAKqelQtZpMhECGc ySNvxFZ6HMJeYG6xjzohUQdf RQcdMLHhkdK7METgsBTrS8Gd MOZgNL1vettjFTY7RMhrORUk KAD1YpScKFHfl3Ozmbt5KhDi qEm8u0yyXDFzTNSxlCbov3zn PRT2SMBmuFDeL2yzfF8kDJKy TD2ppylwl3egEHguTBxjIUPt nWS7uoZ6SOBdpUXoJ0AzgB7t XKZiAGSnjsTzjYqnwC2wRaYl MlxjZjFccGFyIEEuICBURVJN UG0UMNUVEXMIKNsaItlJPUAC NRH0VBMabig9ITDhWISBUR7N KB5JLYEKDSQNPeDCDGHWSHkj JoDQEKEDKpDmOz5KSGpXHZdT ABNkFM3ZANVZK1BPFLCHPZ7a iJMdZQNeMdElGCyQCZ2DRY4K JUKqSq0WPKXPQWVFDjKkCM1b T3GDLLgRGIHNIN3BLHCRLAWI EqvqGUObkSAuEJCsFLMVU5gD RyjySrGHGG7FLBISL9FLWHLF FjthKHMdgXJoKK3rTn6cJ2eZ ZvaGYQWLMlZvFEgAPL9ZWFGB P9jRU6iAMPWEUW7OVCI8LJ9U F1MVHHRSRPBTGtCQQ3vNCQbJ IEFORCBEWVNQTEFTSUEuXHBh rhb8SKEmRMOTPjUSYOdDBWVE NP6ATHFKQiDFPI8BOVeVQNYX Qk6GZIQINMIUQPYSKxxVHG3m cGFyXHBhcn0= [facility] Work Phone: Pathology report gross observation Narrative x0qfcZSePCEqhWFdZGFuY3rt yeYoELKcuGDwT1ObelpsWFca PV4qYO4diGjobVRwfTYfJWWq TmJch8sis776bNZpo4dlCWJX mkvrpWe7rScfO14bu2K2Eyhm N11kqISsAWF1ZERgUWJbqXCv PZIxCIA7EWOxhQYdV3tgRSTj KY4nsrodLQteHPfvDIIkaHA6 FMUtwRMlY9OuPNPdHBwlXWKg qln8CzQmCr2mvQZnmUgfBUir HyjuyKeop2OxfCEpXMdqPMRg SAZiALuhbcpvIHn0HZNgGVji sICaRM3yyZkyKbgnnLmmx1Mr dCBcXGlkIDUxMDAyIFxcZGIg V1WTBDZpDQHhQts7GFJnVGu6 KWs4TY8ZJjCwNMKkBWZ3YZNj CHJhVBg4QGmzAA8XUVg5LKU7 SHU1MgN0NPLqHOZhEV2uKMod pSGlKMjol2FvPfWaBZRpERql ayB5UHXidjItc3LfQKrytCvs UWHaSjIzkJbjzP4rAeKgXCAM EpLLKTFzhPYzEMCjngSzd7Jf HPnxebsecUJoIMtrWCA8fLIe QTFwIUEnYLGxOC69Y3KyynJw YUHycnTrjK8czVd9GFpzzrJt XySuSXMdXKPjhCywsF3oIllv LCBhcmUgMiBmcmFnbWVudHMg n5VljDPmDAYez2G4XKSxh1S7 WNKwK6nvAFcmbPmnAzZ0mbVn ToKzqEUcXkNeaRDeMtZbZ86w MZQzOZUkqLVjtE3iuqVnmaGd hXGgdEC3TMManZ6boH21btBq upGqnkNzN0Onm3O3dEWlLZLq ydqrQXSlQFCrCkGzHBDcD8ro FSGtNNjQRMceDMUaP6VlD9Lq vtT5RZShikxhItyevTfhd9Ke dCBcXGlkIDUxMDAyIFxcZGIg M7UWTEGpMLPoIzk8CFKpIPw4 XHz4IJ3NJpWvOUUdJLG0DIXs JVYzVYr3MTlnHZ4CSBo2KLB3 KEE5PJZ3EOWhVRTaHT2vDYai fKJeNZitl2YuLnGfVKBoEMvl iaH9MTKilgJzt1RnBsTzEYVc O6irVkUbWQkagNNlfcteagKh OBT3YKHkY5AzexUeXBerQFPm af2lwJtuZSEpZIXjiBAmEUdc dGggdGhlIHBhdGllbnQncyBu BQ2bXMUdMCIxf5PapCQviKUa rT3fHGRzAW4qRTDxc8otakLh LC4zb71rKreaMPCajdUhqCTq bWyxlFRoScRvX44gjnLgMJ3f RLVydqggy24ywMZ8lGQukWKl SQbkxmEfSTGgpshalN3qON46 ARbmWM88KEquDG2oPRQfMsAU iOGxi9PgW1ujZI8cyPRpq3Jj xFw4sTGaSYddRSPzbO5luB6f WaYiSSWxMUV4RERlDMJgerki HGYjJUYaTuAtERWqQ3apNRGz GBgCXUmjRDOkW8DzJ6NlhtK5 s6pkeMoah5VrwIChJG8caRYs fQ== [facility] Work Phone: Pathology report microscopic observation Narrative Other stain x8ytpIImWQCbyBJtNEIdU0xr mmEvDKYslPPcI3EykzexYNnq PI0uUQ1phEotcKVddDTyKRCj DzMyi8zrb129wKTaa7scXVSD nokcpTk8kHzkD56qy0G7Ncdw C81ysJWeJDF6RIVoRIPcdISm PFEzVLR6VJUbyOWdP3cdKEMa IU1wduhjGZbqCRfoERRrrEI6 ZJXuzMSrS0LgAFAbFYylNYYu ard6ZzSuQc5flPDmiOkpKUgt YXJkXHBsYWluXGZzMjAgTWlj tx3xX31ldRHbi7neZVWmEXG1 QI3rgnDpUktcRRB2 [facility] Work Phone: Pathology report relevant history Narrative o3aoiERdDYHetEHoYRBfR0wi jyCeNULepEFyU5QhaxgtFKfp AQ1dDZ5ggXwgjNPbvIUdOBHe NpMmv5lbb105rUHrr4jnQBIC slrbzTo3pAumD86dk2Q6Gmil V32lnWQhHKV4PZJqNVCzhQRb FGDkBWX3WQUbuTVzM1gjXIQg FC7bqlfsJMztVWvpCEBpxZC1 FGZcsKQsO7DzWAQjXFuyQQWa fdh1VkMmKg1meWQoiTtzBJth YXJkXHBsYWluXGZzMjAgUmVj oWYeXEArZWYewK6jUgEwRdId bWluYWwgcGFpblxwYXJ9 [facility] Work Phone: [facility] Work Phone: COLONOSCOPYon 03-05-2024 Colonoscopy Table formatting [...] Rubina Benitez RN 03/05/2024 0735 Procedure Location [address] [address] Referring Provider Forrest Mohr MD Procedure Provider Forrest Mohr MD [facility] Colonoscopy studyon 03-05-20 24 Table formatting [...] Rubina Benitez RN 03/05/2024 0735 Procedure Location [address] [address] Referring Provider Forrest Mohr MD Procedure Provider Forrest Mohr MD [facility] Work Phone: [facility] Work Phone: Radiology Study observation (narrative) [facility] Work Phone: Surgical pathology studyon 0 03-05-2024 Surgical pathology study Pathology report.total SEE COMMENT Surgical Pathology Case: [id number] Authorizing Provider: Forrest Mohr MD Collected: 03/05/2024 0734 Ordering Location: [facility] [place] Received: 03/05/[address] [place] [address] Pathologist: Shae Sanchez MD Specimens: A) - [...] LMP Path report.microscopic observation Microscopic slides examined. [facility] CBC W Auto Differential pane l (Bld)on 01-30-2024 Basophils (Bld) [#/Vol] 0.05 10*3/uL [facility] Basophils/100 WBC (Bld) 0.5 % 0.0 - 2.0 % [facility] Eosinophils (Bld) [#/Vol] 0.07 10*3/uL [facility] Eosinophils/100 WBC (Bld) 0.7 % 0.0 - 6.0 % [facility] Erythrocyte distribution width (RBC) [Ratio] 13.1 % 11.5 - 14.5 % [facility] Hematocrit (Bld) [Volume fraction] 38.0 % 36.0 - 46.0 % [facility] Hemoglobin (Bld) [Mass/Vol] 12.3 g/dL 12.0 - 16.0 g/dL [facility] Immature granulocytes (Bld) [#/Vol] 0.03 10*3/uL [facility] Immature granulocytes/100 WBC (Bld) 0.3 % 0.0 - 0.9 % [facility] Comment on above: Immature Granulocyte Count (IG) includes promyelocytes, myelocytes and metamyelocytes but does not include bands. Percent differential counts (%) should be interpreted in the context of the absolute cell counts (cells/UL). Lymphocytes (Bld) [#/Vol] 1.53 10*3/uL [facility] Lymphocytes/100 WBC (Bld) 15.7 % 13.0 - 44.0 % [facility] MCH (RBC) [Entitic mass] 28.8 pg 26.0 - 34.0 pg [facility] MCHC (RBC) [Mass/Vol] 32.4 g/dL 32.0 - 36.0 g/dL [facility] MCV (RBC) [Entitic vol] 89 fL 80 - 100 fL [facility] Monocytes (Bld) [#/Vol] 0.64 10*3/uL [facility] Monocytes/100 WBC (Bld) 6.6 % 2.0 - 10.0 % [facility] Neutrophils (Bld) [#/Vol] 7.40 10*3/uL [facility] Comment on above: Percent differential counts (%) should be interpreted in the context of the absolute cell counts (cells/uL). Neutrophils/100 WBC (Bld) 76.2 % 40.0 - 80.0 % [facility] Nucleated RBC/100 WBC (Bld) [Ratio] 0.0 % [facility] Platelets (Bld) [#/Vol] 203 10*3/uL [facility] RBC (Bld) [#/Vol] 4.27 10*6/uL [facility] WBC (Bld) [#/Vol] 9.7 10*3/uL [facility] CT Abdomen and Pelvis W cont [...] Avelina Eng 01/30/2024 12:37 PM Dictation workstation: [id number] Interpreted By: Avelina Gomez, STUDY: CT ABDOMEN PELVIS W IV CONTRAST; 01/30/2024 12:30 pm INDICATION: Signs/Symptoms:abdominal pain, rectal bleeding. COMPARISON: 03/08/2023 ACCESSION NUMBER(S): [id number] ORDERING CLINICIAN: SHAE PASTOR TECHNIQUE: CT of [...] pain, rectal bleeding. COMPARISON: 03/08/2023 ACCESSION NUMBER(S): [id number] ORDERING CLINICIAN: SHAE PASTOR TECHNIQUE: CT of [...] Avelina Eng 01/30/2024 12:37 PM Dictation workstation: [id number] [facility] Work Phone: Radiology Study observation (narrative) [facility] Work Phone: CT Abdomen and Pelvis W cont rast IVOrdered By: Avelina Eng on 01-30-2024 [facility] Work Phone: Comprehensive metabolic 2000 panelon 01-30-2024 Albumin BCP dye [Mass/Vol] 4.2 g/dL 3.4 - 5.0 g/dL [facility] ALP [Catalytic activity/Vol] 81 U/L 33 - 110 U/L [facility] ALT With P-5'-P [Catalytic activity/Vol] 10 U/L 7 - 45 U/L [facility] Comment on above: Patients treated wit h Sulfasalazine may generate falsely decreased results for ALT. Anion gap [Moles/Vol] 10 mmol/L 10 - 2 0 mmol/L [facility] AST With P-5'-P [Catalytic activity/Vol] 14 U/L 9 - 39 U/L [facility] Bilirubin [Mass/Vol] 0.3 mg/dL 0.0 - 1 .2 mg/dL [facility] Calcium [Mass/Vol] 9.3 mg/dL 8.6 - 10. 3 mg/dL [facility] Chloride [Moles/Vol] 108 mmol/L High 98 - 10 7 mmol/L [facility] CO2 [Moles/Vol] 25 mmol/L 21 - 32 mmol/L [facility] Creatinine [Mass/Vol] 0.57 mg/dL 0.50 - 1.05 mg/dL [facility] eGFR - PINF [facility] Comment on above: Calculations of nilson mated GFR are performed using the 2020 CKD-EPI Study Refit equation without the race variable for the IDMS-Traceable creatinine methods. https://jasn.asnjournals.org/content/early/ASN.68304 36971 Glucose [Mass/Vol] 94 mg/dL 74 - 99 mg/dL [facility] Interpretation and review of laboratory results Abnormal [facility] Potassium [Moles/Vol] 3.7 mmol/L 3.5 - 5.3 mmol/L [facility] Protein [Mass/Vol] 6.8 g/dL 6.4 - 8.2 g/dL [facility] Sodium [Moles/Vol] 139 mmol/L 136 - 145 mmol/L [facility] Urea nitrogen [Mass/Vol] 12 mg/dL 6 - 23 mg/dL [facility] HCG.beta subunit Qnon 2023 Interpretation and review of laboratory results Normal [facility] Total HCG measuremen t is performed using the Karoline Zayda Access Immunoassay which detects intact HCG and free beta HCG subunit. This test is not indicated for use as a tumor marker. HCG testing is performed using a different test methodology at [facility]3] than other legacy [facility]. Direct result comparison should only be made within the same method. [facility] Human Chorionic Gonadotropin , Serum Quantitativeon 01-30-2024 HCG.beta subunit Qn [facility] Lactate[facility] 01-30-2024 Lactate [Moles/Vol] 0.9 mmol/L 0.4 - 2. 0 mmol/L [facility] Lipaseon 01-30-2024 Lipase [Catalytic activity/Vol] 20 U/L 9 - 82 U/L [facility] No Panel Informationon 01-29 Interpretation and review of laboratory results Normal [facility] Venipuncture immedia tely after or during the administration of Metamizole may lead to falsely low results. Testing should be performed immediately prior to Metamizole dosing. [facility] Urinalysis complete W Reflex Culture panel (U)on 01-30-2024 Appearance (U) Clear Clear [facility] Bilirubin (U) [Mass/Vol] Negative NEGATIVE [facility] Color (U) Straw Straw, Yellow [facility] Glucose Auto test strip (U) [Mass/Vol] Negative NEGATIVE mg/dL [facility] Interpretation and review of laboratory results Normal [facility] Ketones (U) [Mass/Vol] Negative NEGAT BERNADETTE mg/dL [facility] Leukocyte esterase Auto test strip Ql (U) Negative NEGATIVE [facility] Nitrite Auto test strip Ql (U) Negative NEGATIVE [facility] pH (U) 6.0 [pH] 5.0, 5.5, 6.0, 6.5, 7.0, 7.5, 8.0 [facility] Protein (U) [Mass/Vol] Negative NEGAT [place] mg/dL [facility] RBC (U) [#/Vol] Negative NEGATIVE [facility] Specific gravity (U) [Rel density] 1.013 1.005 - 1.035 [facility] Urobilinogen (U) [Mass/Vol] mg/dL NINF - 2.0 mg/dL [facility] ACETAMINOPHENon 12-27-2022 Acetaminophen [Mass/Vol] ug/mL Normal 10.0 - 30.0 [facility] Comment on above: Performed By: #### A CETA ####[address] [address] ALCOHOLon 12-27-2022 Ethanol [Mass/Vol] mg/dL Normal [facility] Comment on above: Result Comment: FOR MEDICAL USE ONLY. . REF VALUES <10 Performed By: #### A LC ####[address] [address] CBC AND DIFFERENTIALon 12-27 % AUTOMATED IMMATURE GRAN 0.4 % Normal 0.0 - 0.9 [facility] Comment on above: Result Comment: Arielle ture Granulocyte Count (IG) includes promyelocytes, myelocytes and metamyelocytes but does not include bands. Percent differential counts (%) should be interpreted in the context of the absolute cell counts (cells/L). Performed By: #### C BCDF ####[address] [address] Basophils (Bld) [#/Vol] 0.05 10*3/uL Normal 0.00 - 0.10 [facility] Comment on above: Performed By: #### C BCDF ####[address] [address] Basophils/100 WBC (Bld) 0.5 % Normal 0.0 - 2.0 [facility] Comment on above: Performed By: #### C BCDF ####[address] [address] Eosinophils (Bld) [#/Vol] 0.09 10*3/uL Normal 0.00 - 0.70 [facility] Comment on above: Performed By: #### C BCDF ####[address] [address] Eosinophils/100 WBC (Bld) 1.0 % Normal 0.0 - 6.0 [facility] Comment on above: Performed By: #### C BCDF ####[address] [address] Erythrocyte distribution width (RBC) [Ratio] 12.8 % Normal 11.5 - 14.5 [facility] Comment on above: Performed By: #### C BCDF ####[address] [place] [address] Hematocrit (Bld) [Volume fraction] 39.1 % Normal 36.0 - 46.0 [facility] Comment on above: Performed By: #### C BCDF ####[address] [address] Hemoglobin (Bld) [Mass/Vol] 12.8 g/dL Normal 12.0 - 16.0 [facility] Comment on above: Performed By: #### C BCDF ####[address] [address] Lymphocytes (Bld) [#/Vol] 2.21 10*3/uL Normal 1.20 - 4.80 [facility] Comment on above: Performed By: #### C BCDF ####[address] [address] Lymphocytes/100 WBC (Bld) 23.5 % Normal 13.0 - 44.0 [facility] Comment on above: Performed By: #### C BCDF ####[address] [address] MCHC (RBC) [Mass/Vol] 32.7 g/dL Normal 32.0 - 36.0 [facility] Comment on above: Performed By: #### C BCDF ####[address] [address] MCV (RBC) [Entitic vol] 87 fL Normal 80 - 100 [facility] Comment on above: Performed By: #### C BCDF ####[address] [address] Monocytes (Bld) [#/Vol] 0.95 10*3/uL Normal 0.10 - 1.00 [facility] Comment on above: Performed By: #### C BCDF ####[address] [address] Monocytes/100 WBC (Bld) 10.1 % Normal 2.0 - 10.0 [facility] Comment on above: Performed By: #### C BCDF ####[address] [address] Neutrophils (Bld) [#/Vol] 6.07 10*3/uL Normal 1.20 - 7.70 [facility] Comment on above: Result Comment: Perc ent differential counts (%) should be interpreted in the context of the absolute cell counts (cells/L). Performed By: #### C BCDF ####[address] [address] Neutrophils/100 WBC (Bld) 64.5 % Normal 40.0 - 80.0 [facility] Comment on above: Performed By: #### C BCDF ####[address] [address] Platelets (Bld) [#/Vol] 243 10*3/uL Normal 150 - 450 [facility] Comment on above: Performed By: #### C BCDF ####[address] [address] RBC 4.50 x10E12/L Normal 4.00 - 5.20 [facility] Comment on above: Performed By: #### C BCDF ####[address] [address] WBC (Bld) [#/Vol] 9.4 10*3/uL Normal 4.4 - 11.3 [facility] Comment on above: Performed By: #### C BCDF ####[address] [address] COMPREHENSIVE PANELon 2022 Albumin [Mass/Vol] 4.4 g/dL Normal 3.4 - 5.0 [facility] Comment on above: Performed By: #### C MP ####[address] [address] ALP [Catalytic activity/Vol] 102 U/L Normal 33 - 110 [facility] Comment on above: Performed By: #### C MP ####[address] [address] ALT [Catalytic activity/Vol] 13 U/L Normal 7 - 45 [facility] Comment on above: Result Comment: Lynsey ents treated with Sulfasalazine may generate falsely decreased results for ALT. Performed By: #### C MP ####[address] [address] Anion gap [Moles/Vol] 11 mmol/L Normal 10 - 20 [facility] Comment on above: Performed By: #### C MP ####[address] [address] AST [Catalytic activity/Vol] 16 U/L Normal 9 - 39 [facility] Comment on above: Performed By: #### C MP ####[address] [address] Bilirubin [Mass/Vol] 0.5 mg/dL Normal 0.0 - 1.2 [facility] Comment on above: Performed By: #### C MP ####[address] [address] Calcium [Mass/Vol] 9.5 mg/dL Normal 8.6 - 10.3 [facility] Comment on above: Performed By: #### C MP ####[address] [address] Chloride [Moles/Vol] 106 mmol/L Normal 98 - 107 [facility] Comment on above: Performed By: #### C MP ####[address] [address] Creatinine [Mass/Vol] 0.64 mg/dL Normal 0.50 - 1.05 [facility] Comment on above: Performed By: #### C MP ####[address] [address] eGFR FEMALE >90 Normal >90 [facility] Comment on above: Result Comment: CALC ULATIONS OF ESTIMATED GFR ARE PERFORMED USING THE 2020 CKD-EPI STUDY REFIT EQUATION WITHOUT THE RACE VARIABLE FOR THE IDMS-TRACEABLE CREATININE METHODS. https://jasn.asnjournals.org/content//ASN.55161 70631 Performed By: #### C MP ####[address] [address] Glucose [Mass/Vol] 66 mg/dL Low 74 - 99 [facility] Comment on above: Performed By: #### C MP ####[address] [address] HCO3 (Bld) [Moles/Vol] 27 mmol/L Normal 21 - 32 [facility] Comment on above: Performed By: #### C MP ####[address] [address] Potassium [Moles/Vol] 3.5 mmol/L Normal 3.5 - 5.3 [facility] Comment on above: Performed By: #### C MP ####[place] [address] Protein [Mass/Vol] 7.2 g/dL Normal 6.4 - 8.2 [facility] Comment on above: Performed By: #### C MP ####[address] [address] Sodium [Moles/Vol] 140 mmol/L Normal 136 - 145 [facility] Comment on above: Performed By: #### C MP ####[address] [address] Urea nitrogen [Mass/Vol] 11 mg/dL Normal 6 - 23 [facility] Comment on above: Performed By: #### C MP ####[address] [address] DRUG SCREEN,URINEon 12-28-19 23 AMPHETAMINE SCREEN,U Negative Normal NEGATIVE [facility] Comment on above: Result Comment: CUTO FF LEVEL: 500 NG/ML Cross-reactivity has been reported with high concentrations of the following drugs: buproprion, chloroquine, chlorpromazine, ephedrine, mephentermine, fenfluramine, phentermine, phenylpropanolamine, pseudoephedrine, and propranolol. Performed By: #### D RUG3 #### [place] [address] BARBITURATES SCREEN,U Negative Normal NEGATIVE [facility] Comment on above: Result Comment: CUTO FF LEVEL: 200 NG/ML Performed By: #### D RUG3 #### [place] [id number] BENZODIAZEPINES SCREEN,U Negative Normal NEGATIVE [facility] Comment on above: Result Comment: CUTO FF LEVEL: 200 NG/ML Performed By: #### D RUG3 #### [place] [address] CANNABINOIDS SCREEN,U Negative Normal NEGATIVE [facility] Comment on above: Result Comment: CUTO FF LEVEL: 50 NG/ML Performed By: #### D RUG3 #### [place] [address] COCAINE METABOLITE SCREEN,U Negative Normal NEGATIVE [facility] Comment on above: Result Comment: CUTO FF LEVEL: 150 NG/ML Performed By: #### D RUG3 #### [place] [address] DRUG SCREEN COMMENT SEE BELOW [facility] Comment on above: Result Comment: Drug screen results are presumptive and should not be used to assess compliance with prescribed medication. Contact the performing [facility] laboratory to add-on definitive confirmatory testing if [...] directors. Performed By: #### D RUG3 #### [place] [address] FENTANYL SCREEN,URINE Negative Normal NEGATIVE [facility] Comment on above: Result Comment: CUTO FF LEVEL: 5 NG/ML Performed By: #### D RUG3 #### [place] [address] METHADONE SCREEN,U Negative Normal NEGATIVE [facility] Comment on above: Result Comment: CUTO FF LEVEL: 150 NG/ML The metabolite I-fammb-wewczkaixcjyzx (LAAM) is not detected by this method in concentrations that would be found in the urine of patients on LAAM therapy. Performed By: #### D RUG3 #### [place] [address] OPIATES SCREEN,U Negative Normal NEGATIVE [facility] Comment on above: Result Comment: CUTO FF LEVEL: 300 NG/ML The opiate screen does not detect fentanyl, meperidine, or tramadol. Oxycodone is not consistently detected (refer to Oxycodone Screen, Urine result). Performed By: #### D RUG3 #### [place] [address] OXYCODONE SCREEN,U Negative Normal NEGATIVE [facility] Comment on above: Result Comment: CUTO FF LEVEL: 100 NG/ML This test will accurately detect both oxycodone and oxymorphone. Performed By: #### D RUG3 #### [place] [address] PCP SCREEN,U Negative Normal NEGATIVE [facility] Comment on above: Result Comment: CUTO FF LEVEL: 25 NG/ML Cross-reactivity has been reported with dextromethorphan. Performed By: #### D RUG3 #### [place] [address] HCG,URINEon 12-27-2022 Beta HCG ( test) Ql (U) Negative Normal Negative [facility] Comment on above: Performed By: #### H CGU ####[place] [address] Provider Note - ED v3on 03-3 Provider [...] Alert and oriented x4, GCS 15 , retarder operator II-XII grossly intact. Sensation and motor function of extremities grossly intact. Psych: Appropriate mood and affect. I have reviewed and confirmed nurses/medics notes for patient past, social and family history. Portions of this note were dictated by speech recognition. An attempt at proof reading was made to minimize errors. 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 HISTORY OF PRESENTING ILLNESS [...] results: Acetylsalicylic Acid Level, Serum Trending View [id number] 18:49:00 27-Dec-2022 16:12:00 Acetylsalicylic Acid Level, Serum<3 3 L Drug Screen, Urine 27-Dec-2022 16:39:00 ResultValue Comments. SEE BELOW Drug screen results are presumptive and should not be used to assess compliance with prescribed medication. Contact the performing [facility] laboratory to add-on definitive confirmatory testing if [...] NEGATIVE CUTOFF LEVEL: 150 NG/ML The metabolite S-wnkvq-sgkfcltelklyco (LAAM) is not detected by this method [...] 27-Dec-2022 1 (more content not included)... Normal [facility] SALICYLATEon 12-27-2022 SALICYLATE <3 Normal 4 - 20 [facility] Comment on above: Performed By: #### S [facility] ####[facility] [place] [address] SALICYLATE 3 mg/dL Low 4 - 20 [facility] Comment on above: Performed By: #### S ROGER #### [facility] [address] [place] [address] Triage - EDon 12-27-2022 Triage - ED [...] support. Weight: 132.2 pounds. Calculated 60.0 kg. [place] Coma Scale: Best Eye Response: (E4) spontaneous [...] Shaw ( (more content not included)... Normal [facility] UA MICROSCOPICon 12-27-2022 Mucus Ql (Urine sed) 4+ /LPF Normal [facility] Comment on above: Performed By: #### S ALIC #### [place] [address] RBC 4 /HPF Normal 0-5 [facility] Comment on above: Performed By: #### S ALIC #### [place] [address] SQUAMOUS EPITH. CELLS 25 /HPF Normal [facility] Comment on above: Performed By: #### S ALIC #### [place] [address] WBC 12 /HPF Abnormal 0-5 [facility] Comment on above: Performed By: #### S ALIC #### [place] [address] URINALYSISon 12-27-2022 Appearance (U) SLT CLOUDY Normal CLEAR [facility] Comment on above: Performed By: #### U A ####[place] [address] Bilirubin Ql (U) Negative Normal NEGATIVE [facility] Comment on above: Performed By: #### U A ####[place] [address] Color (U) YELLOW Normal STRAW,YELLOW [facility] Comment on above: Performed By: #### U A ####[place] [address] Glucose Ql (U) Negative Normal NEGATIVE [facility] Comment on above: Performed By: #### U A ####[place] [address] Hemoglobin Ql (U) TRACE Abnormal NEGATIVE [facility] Comment on above: Performed By: #### U A ####[address] [address] Ketones Ql (U) Negative Normal NEGATIVE [facility] Comment on above: Performed By: #### U A ####[address] [address] Leukocyte esterase Test strip Ql (U) SMALL (1+) Abnormal NEGATIVE [facility] Comment on above: Performed By: #### U A ####[place] [address] Nitrite Ql (U) Negative Normal NEGATIVE [facility] Comment on above: Performed By: #### U A ####[place] [address] pH (U) 7.0 [pH] Normal 5.0 - 8.0 [facility] Comment on above: Performed By: #### U A ####[place] [address] Protein Ql (U) 30 (1+) Abnormal NEGATIVE [facility] Comment on above: Performed By: #### U A ####[place] [address] Specific gravity (U) [Rel density] 1.025 Normal 1.005 - 1.035 [facility] Comment on above: Performed By: #### U A ####[address] [address] Urobilinogen (U) [Mass/Vol] 0.2 mg/dL Normal 0.0 - 1.9 [facility] Comment on above: Result Comment: SOME PIGMENTS AND MEDICATIONS MAY CAUSE A FALSE POSITIVE UROBILINOGEN Performed By: #### U A ####[place] [address] Covid 19 Resultson 3 SARS-CoV-2 (COVID-19) RNA [...] You may also be contacted by the [facility] to see if any of your close [...] or Naproxen (Aleve) can also be used. Jvdf-ohx-vzjoriw cough and cold medicines can be used according to the instructions on the package. Some wbmh-dyt-qycwovo medicines also contain acetaminophen. Make sure you [...] water are not available, use alcohol-based hand employment representative. Avoid touching your eyes, nose, and mouth [...] 24 pedrito (more content not included)... Normal [facility] CBC AND DIFFERENTIALon 11-06 % AUTOMATED IMMATURE GRAN 0.3 % Normal 0.0 - 0.9 [facility] Comment on above: Result Comment: Arielle ture Granulocyte Count (IG) includes promyelocytes, myelocytes and metamyelocytes but does not include bands. Percent differential counts (%) should be interpreted in the context of the absolute cell counts (cells/L). Performed By: #### S ALIC #### [address] [address] Basophils (Bld) [#/Vol] 0.04 10*3/uL Normal 0.00 - 0.10 [facility] Comment on above: Performed By: #### S ALIC #### [address] [address] Basophils/100 WBC (Bld) 0.6 % Normal 0.0 - 2.0 [facility] Comment on above: Performed By: #### S ALIC #### [address] [address] Eosinophils (Bld) [#/Vol] 0.10 10*3/uL Normal 0.00 - 0.70 [facility] Comment on above: Performed By: #### S ALIC #### [address] [address] Eosinophils/100 WBC (Bld) 1.4 % Normal 0.0 - 6.0 [facility] Comment on above: Performed By: #### S ALIC #### [address] [address] Erythrocyte distribution width (RBC) [Ratio] 12.9 % Normal 11.5 - 14.5 [facility] Comment on above: Performed By: #### S ALIC #### [address] [address] Hematocrit (Bld) [Volume fraction] 39.0 % Normal 36.0 - 46.0 [facility] Comment on above: Performed By: #### S ALIC #### [address] [address] Hemoglobin (Bld) [Mass/Vol] 12.8 g/dL Normal 12.0 - 16.0 [facility] Comment on above: Performed By: #### S ALIC #### [address] [address] Lymphocytes (Bld) [#/Vol] 1.34 10*3/uL Normal 1.20 - 4.80 [facility] Comment on above: Performed By: #### S ALIC #### [address] [address] Lymphocytes/100 WBC (Bld) 18.9 % Normal 13.0 - 44.0 [facility] Comment on above: Performed By: #### S ALIC #### [address] [address] MCHC (RBC) [Mass/Vol] 32.8 g/dL Normal 32.0 - 36.0 [facility] Comment on above: Performed By: #### S ALIC #### [address] [address] MCV (RBC) [Entitic vol] 87 fL Normal 80 - 100 [facility] Comment on above: Performed By: #### S ALIC #### [address] [address] Monocytes (Bld) [#/Vol] 0.94 10*3/uL Normal 0.10 - 1.00 [facility] Comment on above: Performed By: #### S ALIC #### [address] [address] Monocytes/100 WBC (Bld) 13.3 % Normal 2.0 - 10.0 [facility] Comment on above: Performed By: #### S ALIC #### [address] [address] Neutrophils (Bld) [#/Vol] 4.64 10*3/uL Normal 1.20 - 7.70 [facility] Comment on above: Result Comment: Perc ent differential counts (%) should be interpreted in the context of the absolute cell counts (cells/L). Performed By: #### S ALIC #### [address] [address] Neutrophils/100 WBC (Bld) 65.5 % Normal 40.0 - 80.0 [facility] Comment on above: Performed By: #### S ALIC #### [address] [address] Platelets (Bld) [#/Vol] 172 10*3/uL Normal 150 - 450 [facility] Comment on above: Performed By: #### S ALIC #### [address] [address] RBC 4.46 x10E12/L Normal 4.00 - 5.20 [facility] Comment on above: Performed By: #### S ALIC #### [address] [address] WBC (Bld) [#/Vol] 7.1 10*3/uL Normal 4.4 - 11.3 [facility] Comment on above: Performed By: #### S ALIC #### [address] [address] CHEST 1 VIEWon 11-06-2022 CHEST 1 VIEW Patient Name: DEBI VERDUZCO STUDY: CHEST 1 VIEW; 11/06/2022 2:49 pm INDICATION: Chest Pain . COMPARISON: None. ACCESSION NUMBER(S): [id number] ORDERING CLINICIAN: STEPHANIE VILLA TECHNIQUE: Single AP [...] Electronically signed by: CALVIN PALMA MD Normal [facility] COMPREHENSIVE PANELon 2022 Anion gap [Moles/Vol] 8 mmol/L Low 10 - 20 [facility] Comment on above: Performed By: #### C MP ####[address] [address] HCO3 (Bld) [Moles/Vol] 30 mmol/L Normal 21 - 32 [facility] Comment on above: Performed By: #### C MP ####[address] [address] Potassium [Moles/Vol] 3.7 mmol/L Normal 3.5 - 5.3 [facility] Comment on above: Performed By: #### C MP ####[address] [address] Sodium [Moles/Vol] 138 mmol/L Normal 136 - 145 [facility] Comment on above: Performed By: #### C MP ####[address] [address] Albumin [Mass/Vol] 4.1 g/dL Normal 3.4 - 5.0 [facility] Comment on above: Performed By: #### C MP ####[address] [address] ALP [Catalytic activity/Vol] 79 U/L Normal 33 - 110 [facility] Comment on above: Performed By: #### C MP ####[address] [address] ALT [Catalytic activity/Vol] 19 U/L Normal 7 - 45 [facility] Comment on above: Result Comment: Lynsey ents treated with Sulfasalazine may generate falsely decreased results for ALT. Performed By: #### C MP ####[address] [address] AST [Catalytic activity/Vol] 14 U/L Normal 9 - 39 [facility] Comment on above: Performed By: #### C MP ####[address] [address] Bilirubin [Mass/Vol] 0.4 mg/dL Normal 0.0 - 1.2 [facility] Comment on above: Performed By: #### C MP ####[address] [address] Calcium [Mass/Vol] 9.5 mg/dL Normal 8.6 - 10.3 [facility] Comment on above: Performed By: #### C MP ####[address] [address] Chloride [Moles/Vol] 104 mmol/L Normal 98 - 107 [facility] Comment on above: Performed By: #### C MP ####[address] [address] Creatinine [Mass/Vol] 0.63 mg/dL Normal 0.50 - 1.05 [facility] Comment on above: Performed By: #### C MP ####[address] [address] eGFR FEMALE >90 Normal >90 [facility] Comment on above: Result Comment: CALC ULATIONS OF ESTIMATED GFR ARE PERFORMED USING THE 2020 CKD-EPI STUDY REFIT EQUATION WITHOUT THE RACE VARIABLE FOR THE IDMS-TRACEABLE CREATININE METHODS. https://jasn.asnjournals.org/content/early//ASN.76677 [address] Performed By: #### C MP ####[address] [address] Glucose [Mass/Vol] 102 mg/dL High 74 - 99 [facility] Comment on above: Performed By: #### C MP ####[address] [address] Protein [Mass/Vol] 7.1 g/dL Normal 6.4 - 8.2 [facility] Comment on above: Performed By: #### C MP ####[address] [address] Urea nitrogen [Mass/Vol] 8 mg/dL Normal 6 - 23 [facility] Comment on above: Performed By: #### C MP ####[address] [address] HCG,BETA-QUANTITATIVEon 02 HCG,BETA-QUANTITATIVE <2 Normal [facility] Comment on above: Result Comment: . Total HCG measurement is performed using the Karoline Zayda Access Immunoassay which detects intact HCG and free beta HCG subunit. . This test is not indicated for use as a tumor marker. HCG testing is performed using a different test methodology at [facility]3] than other legacy [facility]. Direct result comparison should only be made within the same method. REF VALUES NON FEMALE <5 MALES <5 Performed By: #### S ALIC #### [place] [address] INFLUENZA A/B, COVID 2019 PC R,SYMPTOMATICon 11-06-2022 INFLUENZA A, PCR Not detected Normal Not Detected [facility] Comment on above: Result Comment: Resp iratory virus testing is performed routinely by PCR for Influenza A/B and RSV. Not Detected results do not preclude Influenza A/B or RSV infections since the adequacy of sample collection or low viral burden may impact the clinical sensitivity of this test method. Performed By: #### C OINP ####[place] [address] INFLUENZA B, PCR Not detected Normal Not Detected [facility] Comment on above: Result Comment: Resp iratory virus testing is performed routinely by PCR for Influenza A/B and RSV. Not Detected results do not preclude Influenza A/B or RSV infections since the adequacy of sample collection or low viral burden may impact the clinical sensitivity of this test method. Performed By: #### C OINP ####[place] [address] SARS-CoV-2 (COVID-19) RNA YOEL+probe Ql (Unsp spec) Not detected Normal Not Detected [facility] Comment on above: Result Comment: . This test has received FDA Emergency Use Authorization (EUA) and has been verified by [facility]. This test is only authorized for the duration of time that circumstances exist to justify the authorization of the emergency use of in vitro diagnostic tests for the detection of SARS-CoV-2 virus and/or diagnosis of COVID-19 infection under section 564(b)(1) of the Act, 21 U.S.C. 360bbb-3(b)(1), unless the authorization is terminated or revoked sooner. [facility] is certified under CLIA-88 as qualified to perform high complexity testing. Testing is performed in the [facility] laboratory located at [address] [place] [address]. SARS-CoV-2/Flu/RSV Multiplex Test: Fact sheet for providers: https://www.fda.gov/media/927351/download Fact sheet for patients: https://www.fda.gov/media/453630/download Performed By: #### C YENNY ####[address] [address] Lab Specimen Source Nasal, Nasopharyngeal Normal [facility] Comment on above: Performed By: #### C YENNY ####[address] [place] [address] Provider Note - ED v3on Provider Note - ED v3 Provider Note: Chart Review: ED NOTES ED NOTES: HPI: Patient is a 22-year-old G2, P1 presenting to the emergency department with myalgias, chills, and L breast pain. Patient reportedly had a spontaneous miscarriage last week. She states that she subsequently followed up with her [employer] Dr. Delgado. She states that she was [...] Authorization (EUA) and has been verified by [facility]. This test is only authorized for the duration of time that circum Complete Blood Count + Differential 06-Nov-2022 14:44:00 Result (more content not included)... Normal [facility] Provider Note - ED v3 This report has be en cancelled. Normal [facility] Risk Screen - Adult Emergenc yon 11-06-2022 [...] material; verbal instruction Cultural Considerationsnone Developmental Considerationsnone Baptism Considerationsnone Learning Assessment (Other Learner): Learning Assessment (Other Learner): Other learner availableno Pressure Injury/TB/Substance: Pressure Injury: Do you have a coughno Smoking Statusnever smoker Alcohol Usedenies Drug Usedenies Admission Risk Screen: Significant IndicatorsComplete CAGE: CAGE: Is this an injured patient at a Trauma Center ([facility]/[place] /[place]): no Electronic Signatures: Bridget Gamboa (DONNELL) (Signed 06-Nov-2022 14:32) Authored: Preferred Language, Patient Preferred Pharmacy, Advanced Directives, Family Violence Adult, Learning Assessment (Patient), Learning Assessment (Other Learner), Pressure Injury/TB/Substance, Pressure Injury, CAGE Last Updated: 06-Nov-2022 14:32 by Bridget Gamboa (DONNELL) Normal [facility] TROPONIN I, HIGH SENSITIVITY on 11-06-2022 TROPONIN I, HIGH SENSITIVITY <3 Normal 0 - 13 [facility] Comment on above: Result Comment: . Less [...] performed using a different testing methodology at [facility]3] than at other legacy [facility]. Direct result comparisons should only be made within the same method. Performed By: #### T [facility] #### [address] [place] [address] Triage - EDon 11-06-2022 Triage - ED [...] obeys commands Best Verbal Response: (V5) oriented [place] Score: 15 Allergies: no Patient has homicidal [...] Updated: 06-Nov-2022 14:30 by Bridget Gamboa (DONNELL) [facility] URINALYSIS WITH CULTURE IF I NDICATEDon 11-06-2022 Appearance (U) Canceled [facility] Comment on above: Order Comment: TEST URINALYSIS WITH CULTURE IF INDICATED WAS CANCELLED, 11/06/2022 18:28PATIENT DISCHARGED. Performed By: #### U ARFX ####[address] [place] [address] ASCORBIC ACID Canceled [facility] Comment on above: Order Comment: TEST URINALYSIS WITH CULTURE IF INDICATED WAS CANCELLED, 11/06/2022 18:28PATIENT DISCHARGED. Result Comment: Conc entrations > = 20 mg/dL of ascorbic acid can be expected to cause strong interference in the reactions testing for glucose, nitrite and blood. It is recommended to discontinue Vitamin C administration and retest in 10 hours. Performed By: #### U ARFX ####[address] [address] Bilirubin Ql (U) Canceled [facility] Comment on above: Order Comment: TEST URINALYSIS WITH CULTURE IF INDICATED WAS CANCELLED, 11/06/2022 18:28PATIENT DISCHARGED. Performed By: #### U ARFX ####[address] [address] Color (U) Canceled [facility] Comment on above: Order Comment: TEST URINALYSIS WITH CULTURE IF INDICATED WAS CANCELLED, 11/06/2022 18:28PATIENT DISCHARGED. Performed By: #### U ARFX ####[address] [address] Glucose Ql (U) Canceled [facility] Comment on above: Order Comment: TEST URINALYSIS WITH CULTURE IF INDICATED WAS CANCELLED, 11/06/2022 18:28PATIENT DISCHARGED. Performed By: #### U ARFX ####[address] [address] Hemoglobin Ql (U) Canceled [facility] Comment on above: Order Comment: TEST URINALYSIS WITH CULTURE IF INDICATED WAS CANCELLED, 11/06/2022 18:28PATIENT DISCHARGED. Performed By: #### U ARFX ####[address] [address] Ketones Ql (U) Canceled [facility] Comment on above: Order Comment: TEST URINALYSIS WITH CULTURE IF INDICATED WAS CANCELLED, 11/06/2022 18:28PATIENT DISCHARGED. Performed By: #### U ARFX ####[address] [address] Leukocyte esterase Test strip Ql (U) Canceled [facility] Comment on above: Order Comment: TEST URINALYSIS WITH CULTURE IF INDICATED WAS CANCELLED, 11/06/2022 18:28PATIENT DISCHARGED. Performed By: #### U ARFX ####[place] [id number] Nitrite Ql (U) Canceled [facility] Comment on above: Order Comment: TEST URINALYSIS WITH CULTURE IF INDICATED WAS CANCELLED, 11/06/2022 18:28PATIENT DISCHARGED. Performed By: #### U ARFX ####[place] [id number] pH Canceled [facility] Comment on above: Order Comment: TEST URINALYSIS WITH CULTURE IF INDICATED WAS CANCELLED, 11/06/2022 18:28PATIENT DISCHARGED. Performed By: #### U ARFX ####[place] [address] Protein Ql (U) Canceled [facility] Comment on above: Order Comment: TEST URINALYSIS WITH CULTURE IF INDICATED WAS CANCELLED, 11/06/2022 18:28PATIENT DISCHARGED. Performed By: #### U ARFX ####[place] [id number] Specific gravity (U) [Rel density] Canceled [facility] Comment on above: Order Comment: TEST URINALYSIS WITH CULTURE IF INDICATED WAS CANCELLED, 11/06/2022 18:28PATIENT DISCHARGED. Performed By: #### U ARFX ####[place] [id number] UROBILINOGEN Canceled [facility] Comment on above: Order Comment: TEST URINALYSIS WITH CULTURE IF INDICATED WAS CANCELLED, 11/06/2022 18:28PATIENT DISCHARGED. Performed By: #### U ARFX ####[place] [id number] US TRANSVAGINALon 11-06-2022 US TRANSVAGINAL Patient Name: DEBI VERDUZCO STUDY: US TRANSVAGINAL; 11/06/2022 3:27 pm INDICATION: chills, fevers, pain, s/p miscarriage rule out retained products . COMPARISON: 10/21/2022. ACCESSION NUMBER(S): [id number] ORDERING CLINICIAN: STEPHANIE VILLA TECHNIQUE: Multiple multiplanar [...] abnormality. Electronically signed by: BABS ELLER MD [facility] [employer] - Office Visiton [employer] - Office Visit Diagnoses/Problems Assessed Mastitis of [...] 1 TABLET DAILY. Vitals Vital Signs Recorded: [id number] 03:34PM Jiufcjwj255 Dzovkgaiq83 Height5 ft 5 in Lgjpoi63.2 kg BMI Lenakzowpf99.82 kg/m2 BSA Calculated1.68 Physical Exam PHYSICAL EXAMINATION: [...] Quantitativeon HCG.beta subunit Qn 256 m[IU]/mL Abnormal [facility] [address] Work Phone: Comment on above: .Total HCG measureme nt is performed using the Karoline Zayda AccessImmunoassay which detects intact HCG and free beta HCG subunit. .This test is not indicated for use as a tumor marker.HCG testing is performed using a different test methodology at [facility] than other [facility]. Direct result comparisonshould only be [...] elevation. HCG,BETA-QUANTITATIVEon 10-01 HCG,BETA-QUANTITATIVE 256 mIU/mL Abnormal [facility] Comment on above: Result Comment: . Total HCG measurement is performed using the Karoline Zayda Access Immunoassay which detects intact HCG and free beta HCG subunit. . This test is not indicated for use as a tumor marker. HCG testing is performed using a different test methodology at [facility]3] than other legacy [facility]. Direct result comparison should only be made [...] the HCG elevation. Performed By: #### H [facility] #### [place] [address] LMPon 10-23-2022 Last menstrual period start date 25Aug2022 [facility] [address] Work Phone: [employer] - Office Visiton 10-01 [employer] - Office Visit Diagnoses/Problems Assessed Amenorrhea (626.0) [...] DAILY. Vitals Vital Signs Recorded: 23Oct2022 01:40PM Qiujwuzn751 Pjsbwpxes86 Height5 ft 5 in Xfwiui46.6 kg BMI Blwghdtrtg44.6 kg/m2 BSA Calculated1.68 [id number] Physical Exam General: No acute distress Eye: Intraocular movements are intact HEENT: Normocephalic Respiratory: Respirations are nonlabored Gastrointestinal: Nondistended Musculoskeletal: Normal range of motion Neurologic: Alert and oriented x3 Psychiatric: Cooperative, appropriate mood and affect. Results/Data Complete Blood Count + [id number] 07:20PMNon Ambulatory, Provider Ordering Provider: EMILY CLAROS [id number] Test NameResultFlagReference White Blood Cell Count6.1 x10E9/L4.4 - 11.3 Red Blood Cell Count4.14 x10E12/LSee Below Reference Range: 4.00 - 5.20 Qdotzsxxem38.8 g/dLLSee Below Reference Range: 12.0 - 16.0 HCT36.3 %See Below Reference Range: 36.0 - 46.0 MCV88 fL80 - 100 MCHC32.5 g/dLSee Below Reference Range: 32.0 - 36.0 Platelet Owoue885 x10E9/L150 - 450 RDW-CV13.1 %See Below Reference Range: 11.5 - 14.5 Neutrophil %61.3 %See Below Reference Range: 40.0 - 80.0 % Automated Immature Gran0. (more content not included)... Normal [employer] BASIC METABOLIC PANELon 10-01 Anion gap [Moles/Vol] 9 mmol/L Low 10 - 20 [facility] Comment on above: Performed By: #### S ALIC #### [place] [address] Chloride [Moles/Vol] 107 mmol/L Normal 98 - 107 [facility] Comment on above: Performed By: #### S ALIC #### [place] [id number] HCO3 (Bld) [Moles/Vol] 28 mmol/L Normal 21 - 32 [facility] Comment on above: Performed By: #### S ALIC #### [address] [address] Potassium [Moles/Vol] 3.5 mmol/L Normal 3.5 - 5.3 [facility] Comment on above: Performed By: #### S ALIC #### [address] [address] Sodium [Moles/Vol] 140 mmol/L Normal 136 - 145 [facility] Comment on above: Performed By: #### S ALIC #### [address] [address] Calcium [Mass/Vol] 8.6 mg/dL Normal 8.6 - 10.3 [facility] Comment on above: Performed By: #### S ALIC #### [address] [address] Creatinine [Mass/Vol] 0.57 mg/dL Normal 0.50 - 1.05 [facility] Comment on above: Performed By: #### S ALIC #### [address] [address] eGFR FEMALE >90 Normal >90 [facility] Comment on above: Result Comment: CALC ULATIONS OF ESTIMATED GFR ARE PERFORMED USING THE 2020 CKD-EPI STUDY REFIT EQUATION WITHOUT THE RACE VARIABLE FOR THE IDMS-TRACEABLE CREATININE METHODS. https://jasn.asnjournals.org/content/early/ASN.58554 23278 Performed By: #### S ALIC #### [address] [address] Glucose [Mass/Vol] 93 mg/dL Normal 74 - 99 [facility] Comment on above: Performed By: #### S ALIC #### [address] [address] Urea nitrogen [Mass/Vol] 8 mg/dL Normal 6 - 23 [facility] Comment on above: Performed By: #### S ALIC #### [address] [address] CBC AND DIFFERENTIALon 10-21 % AUTOMATED IMMATURE GRAN 0.3 % Normal 0.0 - 0.9 [facility] Comment on above: Result Comment: Arielle ture Granulocyte Count (IG) includes promyelocytes, myelocytes and metamyelocytes but does not include bands. Percent differential counts (%) should be interpreted in the context of the absolute cell counts (cells/L). Performed By: #### S ALIC #### [address] [address] Basophils (Bld) [#/Vol] 0.03 10*3/uL Normal 0.00 - 0.10 [facility] Comment on above: Performed By: #### S ALIC #### [address] [address] Basophils/100 WBC (Bld) 0.5 % Normal 0.0 - 2.0 [facility] Comment on above: Performed By: #### S ALIC #### [address] [address] Eosinophils (Bld) [#/Vol] 0.12 10*3/uL Normal 0.00 - 0.70 [facility] Comment on above: Performed By: #### S ALIC #### [address] [address] Eosinophils/100 WBC (Bld) 2.0 % Normal 0.0 - 6.0 [facility] Comment on above: Performed By: #### S ALIC #### [address] [address] Erythrocyte distribution width (RBC) [Ratio] 13.1 % Normal 11.5 - 14.5 [facility] Comment on above: Performed By: #### S ALIC #### [address] [address] Hematocrit (Bld) [Volume fraction] 36.3 % Normal 36.0 - 46.0 [facility] Comment on above: Performed By: #### S ALIC #### [address] [address] Hemoglobin (Bld) [Mass/Vol] 11.8 g/dL Low 12.0 - 16.0 [facility] Comment on above: Performed By: #### S ALIC #### [address] [address] Lymphocytes (Bld) [#/Vol] 1.55 10*3/uL Normal 1.20 - 4.80 [facility] Comment on above: Performed By: #### S ALIC #### [address] [address] Lymphocytes/100 WBC (Bld) 25.4 % Normal 13.0 - 44.0 [facility] Comment on above: Performed By: #### S ALIC #### [address] [address] MCHC (RBC) [Mass/Vol] 32.5 g/dL Normal 32.0 - 36.0 [facility] Comment on above: Performed By: #### S ALIC #### [address] [address] MCV (RBC) [Entitic vol] 88 fL Normal 80 - 100 [facility] Comment on above: Performed By: #### S ALIC #### [address] [address] Monocytes (Bld) [#/Vol] 0.64 10*3/uL Normal 0.10 - 1.00 [facility] Comment on above: Performed By: #### S ALIC #### [address] [address] Monocytes/100 WBC (Bld) 10.5 % Normal 2.0 - 10.0 [facility] Comment on above: Performed By: #### S ALIC #### [address] [address] Neutrophils (Bld) [#/Vol] 3.75 10*3/uL Normal 1.20 - 7.70 [facility] Comment on above: Result Comment: Perc ent differential counts (%) should be interpreted in the context of the absolute cell counts (cells/L). Performed By: #### S ALIC #### [address] [address] Neutrophils/100 WBC (Bld) 61.3 % Normal 40.0 - 80.0 [facility] Comment on above: Performed By: #### S ALIC #### [address] [address] Platelets (Bld) [#/Vol] 188 10*3/uL Normal 150 - 450 [facility] Comment on above: Performed By: #### S ALIC #### [address] [address] RBC 4.14 x10E12/L Normal 4.00 - 5.20 [facility] Comment on above: Performed By: #### S ALIC #### [address] [address] WBC (Bld) [#/Vol] 6.1 10*3/uL Normal 4.4 - 11.3 [facility] Comment on above: Performed By: #### S ALIC #### [address] [address] Complete Blood Count + Diffe thuan 10-21-2022 Basophils/100 WBC (Bld) 0.5 % 0.0 - 2.0 [facility] [address] Work Phone: [phone] Erythrocyte distribution width (RBC) [Ratio] 13.1 % See Below [facility] [address] Work Phone: [phone] Comment on above: Reference Range: 11. 5 - 14.5 Hematocrit (Bld) [Volume fraction] 36.3 % See Below [facility] [address] Work Phone: [phone] Comment on above: Reference Range: 36. 0 - 46.0 Hemoglobin (Bld) [Mass/Vol] 11.8 g/dL below low threshold See Below [facility] [address] Work Phone: [phone] Comment on above: Reference Range: 12. 0 - 16.0 Lymphocytes/100 WBC (Bld) 25.4 % See Below [facility] [address] Work Phone: [phone] Comment on above: Reference Range: 13. 0 - 44.0 MCHC (RBC) [Mass/Vol] 32.5 g/dL See Below [facility] [place] [address] Work Phone: [phone] Comment on above: Reference Range: 32. 0 - 36.0 MCV (RBC) [Entitic vol] 88 fL 80 - 100 [facility] [address] Work Phone: [phone] Monocytes/100 WBC (Bld) 10.5 % 2.0 - 10.0 [facility] [address] [employer] Work Phone: [phone] Neutrophils/100 WBC (Bld) 61.3 % See Below [facility] [address] [employer] Work Phone: [phone] Comment on above: Reference Range: 40. 0 - 80.0 Platelets (Bld) [#/Vol] 188 10*3/uL 150 - 450 [facility] [address] Work Phone: [phone] RBC (Bld) [#/Vol] 4.14 {x10E12/L} See Below [facility] [place] [address] Work Phone: [phone] Comment on above: Reference Range: 4.0 0 - 5.20 WBC (Bld) [#/Vol] 6.1 10*3/uL 4.4 - 11.3 [facility] [address] Work Phone: [phone] Complete Blood Count + Differential 0.03 {x10E9/L} See Below [facility] [address] [employer] Work Phone: [phone] Comment on above: Reference Range: 0.0 0 - 0.10 Complete Blood Count + Differential 0.12 {x10E9/L} See Below [facility] [address] [employer] Work Phone: [phone] Comment on above: Reference Range: 0.0 0 - 0.70 Complete Blood Count + Differential 0.64 {x10E9/L} See Below [facility] [address] [employer] Work Phone: [phone] Comment on above: Reference Range: 0.1 0 - 1.00 Complete Blood Count + Differential 1.55 {x10E9/L} See Below [facility] [address] Work Phone: [phone] Comment on above: Reference Range: 1.2 0 - 4.80 Complete Blood Count + Differential 3.75 {x10E9/L} See Below [facility] [address] [employer] Work Phone: [phone] Comment on above: Reference Range: 1.2 0 - 7.70 Percent differential counts (%) should be interpreted in the context of the absolute cell counts (cells/L). Complete Blood Count + Differential 2.0 % 0.0 - 6.0 [facility] [address] [employer] Work Phone: [phone] Complete Blood Count + Differential 0.3 % 0.0 - 0.9 [facility] [address] Work Phone: [phone] Comment on above: Immature Granulocyte Count (IG) includes promyelocytes, myelocytes and metamyelocytes but does not include bands. Percent differential counts (%) should be interpreted in the context of the absolute cell counts (cells/L). HCG, Beta Quantitativeon HCG.beta subunit Qn 761 m[IU]/mL Abnormal [facility] [place] [address] [employer] Work Phone: Comment on above: .Total HCG measureme nt is performed using the Karoline Zayda AccessImmunoassay which detects intact HCG and free beta HCG subunit. .This test is not indicated for use as a tumor marker.HCG testing is performed using a different test methodology at [facility] than other [facility]. Direct result comparisonshould only be [...] elevation. HCG,BETA-QUANTITATIVEon 10-01 HCG,BETA-QUANTITATIVE 761 mIU/mL Abnormal [facility] Comment on above: Result Comment: . Total HCG measurement is performed using the Karoline Zayda Access Immunoassay which detects intact HCG and free beta HCG subunit. . This test is not indicated for use as a tumor marker. HCG testing is performed using a different test methodology at [facility]3] than other legacy [facility]. Direct result comparison should only be made [...] the HCG elevation. Performed By: #### S [facility] #### [place] [address] Laboratory - Blood bankon ABO group Nom (Bld) A [facility] [place] [address] Work Phone: Blood group antibody screen Ql Negative [facility] [address] Work Phone: [phone] Rh immune globulin screen (Bld) [Interp] Positive [facility] [address] Work Phone: [phone] Laboratory - Chemistry and C hemistry - challengeon 10-21-2022 Anion gap [Moles/Vol] 9 mmol/L below low threshold 10 - 20 [facility] [address] Work Phone: [phone] Calcium [Mass/Vol] 8.6 mg/dL 8.6 - 10.3 [facility] [address] Work Phone: [phone] Chloride [Moles/Vol] 107 mmol/L 98 - 107 [facility] [address] Work Phone: [phone] CO2 [Moles/Vol] 28 mmol/L 21 - 32 [facility] [address] Work Phone: [phone] Creatinine [Mass/Vol] 0.57 mg/dL See Below [facility] [address] Work Phone: [phone] Comment on above: Reference Range: 0.5 0 - 1.05 Glucose [Mass/Vol] 93 mg/dL 74 - 99 [facility] [address] Work Phone: [phone] Potassium [Moles/Vol] 3.5 mmol/L 3.5 - 5.3 [facility] [address] Work Phone: [phone] Sodium [Moles/Vol] 140 mmol/L 136 - 145 [facility] [address] Work Phone: [phone] Urea nitrogen [Mass/Vol] 8 mg/dL 6 - 23 [facility] [address] Work Phone: [phone] No Panel Informationon 10-21 Please click on the link to view the study images Normal [facility] [address] Work Phone: [phone] Normal [facility] [address] Work Phone: >[phone] >90 [facility] [address] Work Phone: Comment on above: CALCULATIONS OF NILSON MATED GFR ARE PERFORMED USING THE 2020 CKD-EPI STUDY REFIT EQUATION WITHOUT THE RACE VARIABLE FOR THE IDMS-TRACEABLE CREATININE METHODS.https://jasn.asnjournals.org/content/22/A SN.7596000097 Provider Note - ED v3on 10-01 Provider [...] made to minimize errors. 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 Please call if questions.. [...] confirm th (more content not included)... Normal [facility] Risk Screen - Adult Emergenc yon 10-21-2022 [...] Learning Preferencesverbal instruction Cultural Considerationsnone Developmental Considerationsnone Baptism Considerationsnone Learning Assessment (Other Learner): Learning Assessment [...] an injured patient at a Trauma Center ([facility]/[place] /[place]): no Electronic Signatures: Morena Hwang (RN) (Signed 21-Oct-2022 18:33) Authored: Preferred Language, Patient Preferred Pharmacy, Advanced Directives, Family Violence Adult, Learning Assessment (Patient), Learning Assessment (Other Learner), Pressure Injury/TB/Substance, Pressure Injury, CAGE Last Updated: 21-Oct-2022 18:33 by Morena Hwang (RN) [facility] TYPE + SCREENon 10-21-2022 ABO TYPE A [facility] Comment on above: Performed By: #### T +S ####[place] [address] RH TYPE Positive [facility] Comment on above: Performed By: #### T +S ####[address] [address] Triage - EDon 10-21-2022 Triage - ED [...] By: spouse/significant other Language: Spoken Language Preferred: Swiss CHIEF COMPLAINT DEBI VERDUZCO is a Female [...] BMI (kg/m2): 22.378 Calculated BSA (m2) 1.67 [place] Coma Scale: Best Eye Response: (E4) spontaneous Best Motor Response: (M6) obeys commands Best Verbal Response: (V5) oriented [place] Score: 15 Allergies: no Mask applied: yes [employer] History: Patient has homicidal thoughts: no Risk [...] Updated: 21-Oct-2022 18:29 by Morena Hwang (DONNELL) [facility] US PELVIS OB TRANSABDOMINAL W TRANSVAGINAL UP TO 1st TRIMESTERon 10-21-2022 US PELVIS OB TRANSABDOMINAL W TRANSVAGINAL UP TO 1st TRIMESTER Patient Name: DEBI VERDUZCO STUDY: US PELVIS OB TRANSABDOMINAL WITH TRANSVAGINAL; 10/21/2022 9:02 pm INDICATION: vaginal bleeding, cramping . COMPARISON: None. ACCESSION NUMBER(S): [id number] ORDERING CLINICIAN: EMILY CLAROS TECHNIQUE: Grayscale and [...] above. Electronically signed by: CALVIN NAIDU MD [facility] HCG, Beta Quantitativeon HCG.beta subunit Qn 691 m[IU]/mL Abnormal [facility] [address] Work Phone: Comment on above: .Total HCG measureme nt is performed using the Karoline Zayda AccessImmunoassay which detects intact HCG and free beta HCG subunit. .This test is not indicated for use as a tumor marker.HCG testing is performed using a different test methodology at [facility] than other legacy [facility]. Direct result comparisonshould only be made within the same method. REF VALUESNON FEMALE <5MALES <5.Low-level positive HCG results can be seen in early , in miir- or post-menopausal females due to normal pituitary HCGproduction, or with analytic interference. Repeat testing in 48-72hours can aid in assessing for as results should doublein this time period. FSH measurement is recommended in miri- orpost-menopausal females as concurrent elevation of FSH can supportpituitary production as the source of the HCG elevation. HCG,BETA-QUANTITATIVEon 10-01 HCG,BETA-QUANTITATIVE 691 mIU/mL Abnormal [facility] Comment on above: Result Comment: . Total HCG measurement is performed using the Karoline Zayda Access Immunoassay which detects intact HCG and free beta HCG subunit. . This test is not indicated for use as a tumor marker. HCG testing is performed using a different test methodology at [facility]3] than other legacy [facility]. Direct result comparison should only be made [...] elevation. Performed By: #### H CGQU #### [facility] [address] [place] [address] ABO/RH GROUP TESTon 10-19-19 ABO TYPE A Normal [facility] Comment on above: Performed By: #### S ALIC #### [address] [address] RH TYPE Positive Normal [facility] Comment on above: Performed By: #### S ALIC #### [address] [address] BASIC METABOLIC PANELon 10-01 Anion gap [Moles/Vol] 6 mmol/L Low 10 - 20 [facility] Comment on above: Performed By: #### S ALIC #### [address] [address] Calcium [Mass/Vol] 9.1 mg/dL Normal 8.6 - 10.3 [facility] Comment on above: Performed By: #### S ALIC #### [address] [address] Chloride [Moles/Vol] 105 mmol/L Normal 98 - 107 [facility] Comment on above: Performed By: #### S ALIC #### [address] [address] Creatinine [Mass/Vol] 0.63 mg/dL Normal 0.50 - 1.05 [facility] Comment on above: Performed By: #### S ALIC #### [address] [address] eGFR FEMALE >90 Normal >90 [facility] Comment on above: Result Comment: CALC ULATIONS OF ESTIMATED GFR ARE PERFORMED USING THE 2020 CKD-EPI STUDY REFIT EQUATION WITHOUT THE RACE VARIABLE FOR THE IDMS-TRACEABLE CREATININE METHODS. https://jasn.asnjournals.org/content/early//ASN.64065 [address] Performed By: #### S ALIC #### [address] [address] Glucose [Mass/Vol] 109 mg/dL High 74 - 99 [facility] Comment on above: Performed By: #### S ALIC #### [address] [address] HCO3 (Bld) [Moles/Vol] 30 mmol/L Normal 21 - 32 [facility] Comment on above: Performed By: #### S ALIC #### [address] [address] Potassium [Moles/Vol] 3.4 mmol/L Low 3.5 - 5.3 [facility] Comment on above: Performed By: #### S ALIC #### [address] [address] Sodium [Moles/Vol] 138 mmol/L Normal 136 - 145 [facility] Comment on above: Performed By: #### S ALIC #### [place] [id number] Urea nitrogen [Mass/Vol] 8 mg/dL Normal 6 - 23 [facility] Comment on above: Performed By: #### S ALIC #### [place] [id number] CBCon 10-19-2022 Erythrocyte distribution width (RBC) [Ratio] 13.1 % Normal 11.5 - 14.5 [facility] Comment on above: Performed By: #### C BC #### [place] [id number] Hematocrit (Bld) [Volume fraction] 37.7 % Normal 36.0 - 46.0 [facility] Comment on above: Performed By: #### C BC #### [address] [address] Hemoglobin (Bld) [Mass/Vol] 12.4 g/dL Normal 12.0 - 16.0 [facility] Comment on above: Performed By: #### C BC #### [address] [address] MCHC (RBC) [Mass/Vol] 32.9 g/dL Normal 32.0 - 36.0 [facility] Comment on above: Performed By: #### C BC #### [address] [address] MCV (RBC) [Entitic vol] 87 fL Normal 80 - 100 [facility] Comment on above: Performed By: #### C BC #### [address] [address] Platelets (Bld) [#/Vol] 208 10*3/uL Normal 150 - 450 [facility] Comment on above: Performed By: #### C BC #### [address] [address] RBC 4.32 x10E12/L Normal 4.00 - 5.20 [facility] Comment on above: Performed By: #### C BC #### [address] [address] WBC (Bld) [#/Vol] 7.1 10*3/uL Normal 4.4 - 11.3 [facility] Comment on above: Performed By: #### C BC #### [address] [address] HCG,BETA-QUANTITATIVEon 10-01 HCG,BETA-QUANTITATIVE 543 mIU/mL Abnormal [facility] Comment on above: Result Comment: . Total HCG measurement is performed using the Karoline [employer] Access Immunoassay which detects intact HCG and free beta HCG subunit. . This test is not indicated for use as a tumor marker. HCG testing is performed using a different test methodology at [facility]3] than other legacy [facility]. Direct result comparison should only be made [...] HCG elevation. Performed By: #### H CGQU ####[address] [address] Provider Note - ED v3on 10-01 Provider [...] had an outpatient ultrasound ordered by her [employer] Dr. Delgado. She states this was done at an facility today and that nothing was seen. She states she had blood work drawn at [facility], it is unaware of the results. Patient [...] a ultrasound earlier today at center in [place] and the said that there was nothing [...] SIGNS: T PRBP SpO2O2(LPM) %FiO2 Method 19-Edi-2023 22:18:[id number]/72 98 room (more content not included)... Normal [facility] Triage - EDon 10-19-2022 Triage - ED [...] a ultrasound earlier today at center in [place] and the said that there was nothing [...] obeys commands Best Verbal Response: (V5) oriented [place] Score: 15 Allergies: no Last menstrual period: [...] Updated: 18-Oct-2022 23:30 by Tamar Castañeda (RN) [facility] Blood Typing (ABO + Rho D)on 10-18-2022 ABO group Nom (Bld) [facility] [address] Work Phone: [phone] Rh immune globulin screen (Bld) [Interp] Positive [facility] [address] [employer] Work Phone: [phone] HCG, Beta Quantitativeon HCG.beta subunit Qn 543 m[IU]/mL Abnormal [facility] [address] Work Phone: [phone] Comment on above: .Total HCG measureme nt is performed using the Karoline Zayda AccessImmunoassay which detects intact HCG and free beta HCG subunit. .This test is not indicated for use as a tumor marker.HCG testing is performed using a different test methodology at [facility] than other legacy [facility]. Direct result comparisonshould only be made within [...] threshold 10 - 20 [facility] [address] Work Phone: [phone] Calcium [Mass/Vol] 9.1 mg/dL 8.6 - 10.3 [facility] [address] Work Phone: [phone] Chloride [Moles/Vol] 105 mmol/L 98 - 107 [facility] [address] Work Phone: [phone] CO2 [Moles/Vol] 30 mmol/L 21 - 32 [facility] [address] Work Phone: [phone] Creatinine [Mass/Vol] 0.63 mg/dL See Below [facility] [address] Work Phone: [phone] Comment on above: Reference Range: 0.5 0 - 1.05 Glucose [Mass/Vol] 109 mg/dL above high threshold 74 - 99 [facility] [address] Work Phone: [phone] Potassium [Moles/Vol] 3.4 mmol/L below low threshold 3.5 - 5.3 [facility] [address] Work Phone: [phone] Sodium [Moles/Vol] 138 mmol/L 136 - 145 [facility] [address] Work Phone: [phone] Urea nitrogen [Mass/Vol] 8 mg/dL 6 - 23 [facility] [address] Work Phone: [phone] Laboratory - Hematology and Cell countson 10-18-2022 Erythrocyte distribution width (RBC) [Ratio] 13.1 % See Below [facility] [address] Work Phone: [phone] Comment on above: Reference Range: 11. 5 - 14.5 Hematocrit (Bld) [Volume fraction] 37.7 % See Below [facility] [address] Work Phone: [phone] Comment on above: Reference Range: 36. 0 - 46.0 Hemoglobin (Bld) [Mass/Vol] 12.4 g/dL See Below [facility] [address] Work Phone: [phone] Comment on above: Reference Range: 12. 0 - 16.0 MCHC (RBC) [Mass/Vol] 32.9 g/dL See Below [facility] [address] Work Phone: [phone] Comment on above: Reference Range: 32. 0 - 36.0 MCV (RBC) [Entitic vol] 87 fL 80 - 100 [facility] [address] [employer] Work Phone: [phone] Platelets (Bld) [#/Vol] 208 10*3/uL 150 - 450 [facility] [address] [employer] Work Phone: [phone] RBC (Bld) [#/Vol] 4.32 {x10E12/L} See Below [facility] [address] Work Phone: [phone] Comment on above: Reference Range: 4.0 0 - 5.20 WBC (Bld) [#/Vol] 7.1 10*3/uL 4.4 - 11.3 [facility] [address] [employer] Work Phone: [phone] Panel Informationon 10-18 >90 >90 [facility] [employer] Work Phone: [phone] Comment on above: CALCULATIONS OF NILSON MATED GFR ARE PERFORMED USING THE 2020 CKD-EPI STUDY REFIT EQUATION WITHOUT THE RACE VARIABLE FOR THE IDMS-TRACEABLE CREATININE METHODS.https://jasn.asnjournals.org/content//A SN.1217929747 Serum or plasma choriogonado tropin detectionOrdered By: Dr. Us on 10-18-2022 HCG ( test) Ql 391 mIU/mL <4 [facility] Comment on above: hCG levels with Gest ational AgeGestational Age hCG mIU/mL (IU/L)0.2 - 1 week 5 - 501-2 weeks 50 - 5002-3 weeks 100 - 75258-9 weeks 500 - 320162-5 weeks 1000 - 332850-9 weeks 40743 - 100,0006-8 weeks 15336 - 200,0002-3 months 30597 - 100,000 Office Visit (Primary Care F [...] with OB next week. Scores and Scales [place] Suicide Severity Rating Scale [id number] 09:24PM (Past Month) Have you wished you [...] Vital Signs Recorded: 17Oct2022 02:44PM Heart Rate84 Czxbtsre72 Vkrzajsfq18 Height5 ft 5 in Widvim063 lb BMI Ztblbdvlbn37.63 kg/m2 BSA Calculated1.68 Tobacco Usea) Yes Physical [...] Oct 17 2022 3:10PM EST (Author) Normal [employer] Tobacco Screening.on 023 Tobacco use status [facility] a) Yes [facility] [address] Work Phone: Provider Note - ED v3on [...] is swollen and painful. She has tried kqnw-uny-qdtiuba medication without any success. She denies any [...] made to minimize errors. 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 Please call if questions.. [...] SIGNS: T PRBP SpO2O2(LPM) %FiO2 Method 23-Aug-2022 13:41:[id number]/72 97 room air, no respiratory support 23-Aug-2022 13:37:00-36.97082537/72 97 room air, no respiratory support DISPOSITION [...] From Triage - ED 23-Aug-2022 13:41 Normal [facility] Risk Screen - Adult Emergenc yon 08-23-2022 [...] Learning Preferencesverbal instruction Cultural Considerationsnone Developmental Considerationsnone Baptism Considerationsnone Other Learnerssignificant other Learning Assessment (Other Learner): Learning Assessment (Other Learner): Other learner availableyes... Learnersignificant other Factors Influencing Readiness to Learnn/a Factors that Impact Ability to Learnnone Devices/Methods Used to Communicatenone Learning Preferencesverbal instruction Cultural Considerationsnone Developmental Considerationsnone Baptism Considerationsnone Pressure Injury/TB/Substance: Pressure Injury: Do you [...] an injured patient at a Trauma Center ([facility]/[place] /[place]): no Electronic Signatures: Teresa Contreras (RN) (Signed 23-Aug-2022 13:48) Authored: Preferred Language, Patient Preferred Pharmacy, Advanced Directives, Family Violence Adult, Learning Assessment (Patient), Learning Assessment (Other Learner), Pressure Injury/TB/Substance, Pressure Injury, CAGE Last Updated: 23-Aug-2022 13:48 by Teresa Contreras (RN) [facility] Triage - EDon 08-23-2022 Triage - ED Quick Triage: Are You no Have You Given In The Last 6 Weeksno Are You Currently Breastfeedingno Chart Review: PRIMARY ASSESSMENT ABCD Normal Findings: airway open and patent, circulation normal and alert and oriented ARRIVAL INFORMATION Means of Arrival: Ambulatory Mode of Arrival: private vehicle Arrival From: home Accompanied By: self Language: Spoken Language Preferred: Swiss Reading Language Preferred: Swiss Present on Arrival: Device Present on Arrival [...] obeys commands Best Verbal Response: (V5) oriented [place] Score: 15 Allergies: no Last menstrual period: [...] Updated: 23-Aug-2022 13:53 by Teresa Contreras (DONNELL) 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 Vitals Vital Signs Recorded: 13Aug2022 02:06PM Ccxgznla265 Ykpoaxtji69 Height5 ft 5 in Irpiyx52.3 kg BMI Cxaffbqqlc88.49 kg/m2 BSA Calculated1.67 Tobacco Usea) Yes Patient [...] screening assessment No [facility] [address] Work Phone: [phone] Fall risk assessment a) No falls within the last year [facility] [address] Work Phone: [phone] Tobacco use status [facility] a) Yes [facility] [address] [employer] Work Phone: [phone] Tobacco Screening. 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 History of Present Yanzxqt44-pptd-sij presents for results review. Patient interested in [...] DAILY Vitals Vital Signs Recorded: 11Jul2022 03:18PM Vbtxturc692 Ebmepfrpr15 Height5 ft 5 in Lsoizi971 lb 8.64 oz BMI Fvxzysbqgs16.06 kg/m2 BSA Calculated1.63 Physical Exam General: None acute distress Eye: Intraocular movements are intact HEENT: Normocephalic Cardiovascular: Regular rate Respiratory: Respirations are nonlabored Gastrointestinal: Nondistended Musculoskeletal: Normal range of motion Neurologic: Alert and oriented x3 Psychiatric: Cooperative appropriate mood and affect. Results/Data IO HCG, Urine [id number] 03:35PMKeara Mckenzie MEDLINE LOT: [id number] EXP: 09/29/2023 Test NameResultFlagReference IO Urine hCGNegative CT Abdomen and Pelvis with IV [id number] [facility] Ordering Provider: WILLIAM CERDA [id number] Abdomen and Pelvis with Contrast(Report) FINAL REPORT Interpreted by: ISSAC TRAN ELLEN, MD 07/05/22 23:33 Patient Name: DEBI VERDUZCO STUDY: CT ABDOMEN AND PELVIS W IV CONTRAST; 07/05/2022 10:55 pm INDICATION: lower abdominal pain . COMPARISON: 08/30/2020 ACCESSION NUMBER(S): [id number] ORDERING CLINICIAN: WILLIAM Islas (more content not included)... Normal [facility] COMPREHENSIVE PANELon 2021 Albumin [Mass/Vol] 4.5 g/dL Normal 3.4 - 5.0 [facility] Comment on above: Performed By: #### S [facility] #### [place] [address] ALP [Catalytic activity/Vol] 78 U/L Normal 33 - 110 [facility] Comment on above: Performed By: #### S ALIC #### [address] [address] ALT [Catalytic activity/Vol] 17 U/L Normal 7 - 45 [facility] Comment on above: Result Comment: Lynsey ents treated with Sulfasalazine may generate falsely decreased results for ALT. Performed By: #### S ALIC #### [address] [address] Anion gap [Moles/Vol] 10 mmol/L Normal 10 - 20 [facility] Comment on above: Performed By: #### S ALIC #### [address] [address] AST [Catalytic activity/Vol] 16 U/L Normal 9 - 39 [facility] Comment on above: Performed By: #### S ALIC #### [address] [address] Bilirubin [Mass/Vol] 0.3 mg/dL Normal 0.0 - 1.2 [facility] Comment on above: Performed By: #### S ALIC #### [address] [address] Calcium [Mass/Vol] 9.3 mg/dL Normal 8.6 - 10.3 [facility] Comment on above: Performed By: #### S ALIC #### [address] [address] Chloride [Moles/Vol] 104 mmol/L Normal 98 - 107 [facility] Comment on above: Performed By: #### S ALIC #### [address] [address] Creatinine [Mass/Vol] 0.73 mg/dL Normal 0.50 - 1.05 [facility] Comment on above: Performed By: #### S ALIC #### [address] [address] eGFR FEMALE >90 Normal >90 [facility] Comment on above: Result Comment: CALC ULATIONS OF ESTIMATED GFR ARE PERFORMED USING THE 2020 CKD-EPI STUDY REFIT EQUATION WITHOUT THE RACE VARIABLE FOR THE IDMS-TRACEABLE CREATININE METHODS. https://jasn.asnjournals.org/content//ASN.88922 71971 Performed By: #### S ALIC #### [address] [address] Glucose [Mass/Vol] 73 mg/dL Low 74 - 99 [facility] Comment on above: Performed By: #### S ALIC #### [address] [address] HCO3 (Bld) [Moles/Vol] 28 mmol/L Normal 21 - 32 [facility] Comment on above: Performed By: #### S ALIC #### [address] [address] Potassium [Moles/Vol] 3.8 mmol/L Normal 3.5 - 5.3 [facility] Comment on above: Performed By: #### S ALIC #### [address] [address] Protein [Mass/Vol] 6.9 g/dL Normal 6.4 - 8.2 [facility] Comment on above: Performed By: #### S ALIC #### [address] [address] Sodium [Moles/Vol] 138 mmol/L Normal 136 - 145 [facility] Comment on above: Performed By: #### S ALIC #### [address] [address] Urea nitrogen [Mass/Vol] 15 mg/dL Normal 6 - 23 [facility] Comment on above: Performed By: #### S ALIC #### [address] [address] CT ABDOMEN AND PELVIS W IV C [facility] 07-06-2022 CT ABDOMEN AND PELVIS W IV CONTRAST Patient Name: DEBI VERDUZCO STUDY: CT ABDOMEN AND PELVIS W IV CONTRAST; 07/05/2022 10:55 pm INDICATION: lower abdominal pain . COMPARISON: 08/30/2020 ACCESSION NUMBER(S): [id number] ORDERING CLINICIAN: WILLIAM CERDA TECHNIQUE: Axial CT [...] Electronically signed by: ISSAC TRAN MD Normal [facility] LIPASEon 07-06-2022 Lipase [Catalytic activity/Vol] 32 U/L Normal 9 - 82 [facility] Comment on above: Result Comment: Callie puncture immediately after or during the administration of Metamizole may lead to falsely low results. Testing should be performed immediately prior to Metamizole dosing. B-fucftq-h-benzoquinone imine (metabolite of Acetaminophen) will generate erroneously low results in samples for patients that have taken toxic doses of acetaminophen. Performed By: #### L IPAS ####[place] [address] UA MICROSCOPICon 07-06-2022 BACTERIA 2+ /HPF Abnormal [facility] Comment on above: Performed By: #### U AMIC #### [address] [address] Mucus Ql (Urine sed) 1+ /LPF Normal [facility] Comment on above: Performed By: #### U AMIC #### [place] [address] RBC 1 /HPF Normal 0-5 [facility] Comment on above: Performed By: #### U AMIC #### [address] [address] SQUAMOUS EPITH. CELLS 10 /HPF Normal [facility] Comment on above: Performed By: #### U AMIC #### [address] [address] WBC 6 /HPF Abnormal 0-5 [facility] Comment on above: Performed By: #### U AMIC #### [address] [address] URINALYSISon 07-06-2022 Appearance (U) HAZY Normal CLEAR [facility] Comment on above: Performed By: #### U A #### [address] [address] Bilirubin Ql (U) Negative Normal NEGATIVE [facility] Comment on above: Performed By: #### U A #### [address] [address] Hemoglobin Ql (U) Negative Normal NEGATIVE [facility] Comment on above: Performed By: #### U A #### [address] [address] Nitrite Ql (U) Negative Normal NEGATIVE [facility] Comment on above: Performed By: #### U A #### [address] [address] Protein Ql (U) Negative Normal NEGATIVE [facility] Comment on above: Performed By: #### U A #### [place] [id number] Specific gravity (U) [Rel density] 1.017 Normal 1.005 - 1.035 [facility] Comment on above: Performed By: #### U A #### [address] [address] Urobilinogen (U) [Mass/Vol] mg/dL Normal 0.0 - 1.9 [facility] Comment on above: Performed By: #### U A #### [address] [address] CBC AND DIFFERENTIALon 07-05 Basophils (Bld) [#/Vol] 0.10 10*3/uL Normal 0.00 - 0.10 [facility] Comment on above: Performed By: #### C BCDF #### [address] [address] Basophils/100 WBC (Bld) 1.0 % Normal 0.0 - 2.0 [facility] Comment on above: Performed By: #### C BCDF #### [address] [address] Eosinophils (Bld) [#/Vol] 0.20 10*3/uL Normal 0.00 - 0.70 [facility] Comment on above: Performed By: #### C BCDF #### [address] [address] Eosinophils/100 WBC (Bld) 2.8 % Normal 0.0 - 6.0 [facility] Comment on above: Performed By: #### C BCDF #### [address] [address] Erythrocyte distribution width (RBC) [Ratio] 12.9 % Normal 11.5 - 14.5 [facility] Comment on above: Performed By: #### C BCDF #### [address] [address] Hematocrit (Bld) [Volume fraction] 38.9 % Normal 36.0 - 46.0 [facility] Comment on above: Performed By: #### C BCDF #### [address] [address] Hemoglobin (Bld) [Mass/Vol] 13.0 g/dL Normal 12.0 - 16.0 [facility] Comment on above: Performed By: #### C BCDF #### [address] [address] Lymphocytes (Bld) [#/Vol] 2.80 10*3/uL Normal 1.20 - 4.80 [facility] Comment on above: Performed By: #### C BCDF #### [address] [address] Lymphocytes/100 WBC (Bld) 36.4 % Normal 13.0 - 44.0 [facility] Comment on above: Performed By: #### C BCDF #### [address] [address] MCHC (RBC) [Mass/Vol] 33.3 g/dL Normal 32.0 - 36.0 [facility] Comment on above: Performed By: #### C BCDF #### [address] [address] MCV (RBC) [Entitic vol] 85 fL Normal 80 - 100 [facility] Comment on above: Performed By: #### C BCDF #### [address] [address] Monocytes (Bld) [#/Vol] 0.70 10*3/uL Normal 0.10 - 1.00 [facility] Comment on above: Performed By: #### C BCDF #### [address] [address] Monocytes/100 WBC (Bld) 9.2 % Normal 2.0 - 10.0 [facility] Comment on above: Performed By: #### C BCDF #### [address] [address] Neutrophils (Bld) [#/Vol] 3.90 10*3/uL Normal 1.20 - 7.70 [facility] Comment on above: Result Comment: Perc ent differential counts (%) should be interpreted in the context of the absolute cell counts (cells/L). Performed By: #### C BCDF #### [address] [address] Neutrophils/100 WBC (Bld) 50.6 % Normal 40.0 - 80.0 [facility] Comment on above: Performed By: #### C BCDF #### [address] [address] Platelets (Bld) [#/Vol] 196 10*3/uL Normal 150 - 450 [facility] Comment on above: Performed By: #### C BCDF #### [address] [address] RBC 4.58 x10E12/L Normal 4.00 - 5.20 [facility] Comment on above: Performed By: #### C BCDF #### [address] [address] WBC (Bld) [#/Vol] 7.7 10*3/uL Normal 4.4 - 11.3 [facility] Comment on above: Performed By: #### C BCDF #### [address] [address] [address] Abdomen and Pelvis with I V Contraston 07-05-2022 CT Abdomen and Pelvis W contrast IV Please click on the link to view the study images Normal [facility] [address] [employer] Work Phone: [phone] CT Abdomen and Pelvis W contrast IV Normal [facility] [address] Work Phone: [phone] Complete Blood Count + Diffe rentialon 07-05-2022 Basophils/100 WBC (Bld) 1.0 % 0.0 - 2.0 [facility] [address] [employer] Work Phone: [phone] Erythrocyte distribution width (RBC) [Ratio] 12.9 % See Below [facility] [address] [employer] Work Phone: [phone] Comment on above: Reference Range: 11. 5 - 14.5 Hematocrit (Bld) [Volume fraction] 38.9 % See Below [facility] [address] Work Phone: [phone] Comment on above: Reference Range: 36. 0 - 46.0 Hemoglobin (Bld) [Mass/Vol] 13.0 g/dL See Below [facility] [address] Work Phone: [phone] Comment on above: Reference Range: 12. 0 - 16.0 Lymphocytes/100 WBC (Bld) 36.4 % See Below [facility] [address] Work Phone: [phone] Comment on above: Reference Range: 13. 0 - 44.0 MCHC (RBC) [Mass/Vol] 33.3 g/dL See Below [facility] [address] [employer] Work Phone: [phone] Comment on above: Reference Range: 32. 0 - 36.0 MCV (RBC) [Entitic vol] 85 fL 80 - 100 [facility] [address] Work Phone: [phone] Monocytes/100 WBC (Bld) 9.2 % 2.0 - 10.0 [facility] [address] Work Phone: [phone] Neutrophils/100 WBC (Bld) 50.6 % See Below [facility] [address] Work Phone: [phone] Comment on above: Reference Range: 40. 0 - 80.0 Platelets (Bld) [#/Vol] 196 10*3/uL 150 - 450 [facility] [address] Work Phone: [phone] RBC (Bld) [#/Vol] 4.58 {x10E12/L} See Below [facility] [address] Work Phone: [phone] Comment on above: Reference Range: 4.0 0 - 5.20 WBC (Bld) [#/Vol] 7.7 10*3/uL 4.4 - 11.3 [facility] [address] [employer] Work Phone: [phone] Complete Blood Count + Differential 0.10 {x10E9/L} See Below [facility] [address] Work Phone: [phone] Comment on above: Reference Range: 0.0 0 - 0.10 Complete Blood Count + Differential 0.20 {x10E9/L} See Below [facility] [address] Work Phone: [phone] Comment on above: Reference Range: 0.0 0 - 0.70 Complete Blood Count + Differential 0.70 {x10E9/L} See Below [facility] [address] Work Phone: [phone] Comment on above: Reference Range: 0.1 0 - 1.00 Complete Blood Count + Differential 2.80 {x10E9/L} See Below [facility] [address] Work Phone: [phone] Comment on above: Reference Range: 1.2 0 - 4.80 Complete Blood Count + Differential 3.90 {x10E9/L} See Below [facility] [address] [employer] Work Phone: [phone] Comment on above: Reference Range: 1.2 0 - 7.70 Percent differential counts (%) should be interpreted in the context of the absolute cell counts (cells/L). Complete Blood Count + Differential 2.8 % 0.0 - 6.0 [facility] [address] [employer] Work Phone: [phone] HCG,URINEon 07-05-2022 Beta HCG ( test) Ql (U) Negative Normal Negative [facility] Comment on above: Performed By: #### H CGU ####[place] [id number] [place] [address] Laboratory - Chemistry and C hemistry - challengeon 07-05-2022 Albumin BCP dye [Mass/Vol] 4.5 g/dL 3.4 - 5.0 [facility] [address] [employer] Work Phone: [phone] ALP [Catalytic activity/Vol] 78 U/L 33 - 110 [facility] [address] [employer] Work Phone: [phone] ALT With P-5'-P [Catalytic activity/Vol] 17 U/L 7 - 45 [facility] [address] [employer] Work Phone: [phone] Comment on above: Patients treated wit h Sulfasalazine may generate falsely decreased results for ALT. Anion gap [Moles/Vol] 10 mmol/L 10 - 20 [facility] [address] [employer] Work Phone: [phone] AST With P-5'-P [Catalytic activity/Vol] 16 U/L 9 - 39 [facility] [address] [employer] Work Phone: [phone] Bilirubin [Mass/Vol] 0.3 mg/dL 0.0 - 1.2 [facility] [address] [employer] Work Phone: [phone] Calcium [Mass/Vol] 9.3 mg/dL 8.6 - 10.3 [facility] [address] [employer] Work Phone: [phone] Chloride [Moles/Vol] 104 mmol/L 98 - 107 [facility] [address] Work Phone: [phone] CO2 [Moles/Vol] 28 mmol/L 21 - 32 [facility] [address] Work Phone: [phone] Creatinine [Mass/Vol] 0.73 mg/dL See Below [facility] [address] [employer] Work Phone: [phone] Comment on above: Reference Range: 0.5 0 - 1.05 Glucose [Mass/Vol] 73 mg/dL below low threshold 74 - 99 [facility] [address] Work Phone: [phone] Potassium [Moles/Vol] 3.8 mmol/L 3.5 - 5.3 [facility] [employer] Work Phone: [phone] Protein [Mass/Vol] 6.9 g/dL 6.4 - 8.2 [facility] [address] [employer] Work Phone: [phone] Sodium [Moles/Vol] 138 mmol/L 136 - 145 [facility] [address] [employer] Work Phone: [phone] Urea nitrogen [Mass/Vol] 15 mg/dL 6 - 23 [facility] [address] [employer] Work Phone: [phone] Lipase, Serumon 07-05-2022 Lipase [Catalytic activity/Vol] 32 U/L 9 - 82 [facility] [employer] Work Phone: [phone] Comment on above: Venipuncture immedia tely after or during the administration of Metamizole may lead to falsely low results. Testing should be performed immediately prior to Metamizole dosing. Y-clvvyd-p-benzoquinone imine (metabolite of Acetaminophen) will generate erroneously low results in samples for patients that have taken toxic doses of acetaminophen. No Panel Informationon 07-05 >90 >90 [facility] [address] Work Phone: Comment on above: CALCULATIONS OF NILSON MATED GFR ARE PERFORMED USING THE 2020 CKD-EPI STUDY REFIT EQUATION WITHOUT THE RACE VARIABLE FOR THE IDMS-TRACEABLE CREATININE METHODS.https://jasn.asnjournals.org/content//A .0988308411 Provider Note - ED v3on 10-0 Provider [...] that she has been following with her [employer]. Had a transvaginal ultrasound yesterday and does [...] Reference Range: STRAW,YELLOW Appearance, Urine HAZY Specific [place], Urine 1.017 pH, Urine 7.0 Protein, Urine [...] SIGNS: T PRBP SpO2O2(LPM) %FiO2 Method 05-Jul-2022 21:35:[id number]/ (more content not included)... Normal [facility] Risk Screen - Adult Emergenc yon 07-05-2022 [...] Communicatenone Learning Preferencesaudio Cultural Considerationsnone Developmental Considerationsnone Baptism Considerationsnone Learning Assessment (Other Learner): Learning Assessment [...] an injured patient at a Trauma Center ([facility]/[place] /[place]): no Electronic Signatures: Jeanette Ferrer (RN) (Signed 05-Jul-2022 21:41) Authored: Preferred Language, Patient Preferred Pharmacy, Advanced Directives, Family Violence Adult, Learning Assessment (Patient), Learning Assessment (Other Learner), Pressure Injury/TB/Substance, Pressure Injury, CAGE Last Updated: 05-Jul-2022 21:41 by Jeanette Ferrer (RN) [facility] Triage - EDon 07-05-2022 Triage - [...] no Allergies: no Last menstrual period: 04-Apr-2022 [employer] History: control Patient has homicidal thoughts: no [...] Updated: 05-Jul-2022 21:40 by Jeanette Ferrer) Normal [facility] Urinalysison 07-05-2022 Color (U) Yellow Normal STRAW,YELLOW [facility] [address] [employer] Work Phone: Comment on above: Reference Range: STR AW,YELLOW Performed By: #### U A #### [facility] [address] [place] [address] Glucose Ql (U) Negative Normal NEGATIVE [facility] [address] Work Phone: [phone] Comment on above: Performed By: #### U A #### [address] [address] Ketones Ql (U) Negative Normal NEGATIVE [facility] [address] Work Phone: [phone] Comment on above: Performed By: #### U A #### [address] [address] Leukocyte esterase Test strip Ql (U) MODERATE(2+) Abnormal NEGATIVE [facility] [address] Work Phone: [phone] Comment on above: Performed By: #### U A #### [address] [address] pH (U) 7.0 [pH] Normal 5.0 - 8.0 [facility] [address] Work Phone: [phone] Comment on above: Performed By: #### U A #### [address] [address] Protein (U) [Mass/Vol] Negative NEGATIVE [facility] [address] Work Phone: [phone] RBC (U) [#/Vol] Negative NEGATIVE [facility] [address] Work Phone: [phone] Specific gravity (U) [Rel density] 1.017 1 See Below [facility] [address] Work Phone: [phone] Comment on above: Reference Range: 1.0 05 - 1.035 Urinalysis Negative NEGATIVE [facility] [address] Work Phone: [phone] Urinalysis <2.0 0.0 - 1.9 [facility] [address] Work Phone: [phone] Urinalysis HAZY CLEAR [facility] [address] Work Phone: [phone] Urinalysis, Microscopicon Urinalysis, Microscopic 1+ [facility] [address] Work Phone: [phone] Urinalysis, Microscopic 2+ Abnormal [facility] [address] [employer] Work Phone: [phone] Urinalysis, Microscopic 10 {/HPF} [facility] [address] Work Phone: [phone] Urinalysis, Microscopic 1 {/HPF} 0-5 [facility] [address] [employer] Work Phone: [phone] Urinalysis, Microscopic 6 {/HPF} Abnormal 0-5 [facility] [address] [employer] Work Phone: [phone] Urine Teston 07-05 HCG ( test) Ql (U) Negative Negative [facility] [employer] Work Phone: [phone] Panel Informationon 07-04 Normal [facility] [employer] Work Phone: [phone] GC + CHLAMYDIA BY AMPLIFIED DETECTIONon 06-28-2022 CHLAMYDIA TRACH.,AMPLIFIED Negative Normal Negative [facility] Comment on above: Result Comment: The APTIMA Combo 2 assay is FDA-approved for Chlamydia trachomatis and Neisseria gonorrhoeae testing on female endocervical and vaginal swabs, ThinPrep liquid pap samples, male urine samples and urethral swabs. Performance characteristics for Chlamydia trachomatis and Neisseria gonorrhoeae testing on specific miz-NUJ-mumcftox sample types (female urine samples) have been validated by [facility]. This laboratory is certified by CLIA to perform high complexity testing. Samples from all other sites are not validated for this method. Performed By: #### [facility] #### [facility] [address] [place] [address] N.GONORRHEA,AMPLIFIED Negative Normal Negative [facility] Comment on above: Result Comment: The APTIMA Combo 2 assay is FDA-approved for Chlamydia trachomatis and Neisseria gonorrhoeae testing on female endocervical and vaginal swabs, ThinPrep liquid pap samples, male urine samples and urethral swabs. Performance characteristics for Chlamydia trachomatis and Neisseria gonorrhoeae testing on specific iea-FYH-hchwjkig sample types (female urine samples) have been validated by [facility]. This laboratory is certified by CLIA to perform high complexity testing. Samples from all other sites are not validated for this method. Performed By: #### [facility] #### [facility] [address] [place] [address] GC + CHLAMYDIA BY AMPLIFIED DETECTIONon 06-27-2022 Lab Specimen Source Urine Normal [facility] Comment on above: Performed By: #### [facility] #### [facility] [address] [place] [address] GC + Chlamydia By Amplified Detectionon 06-27-2022 C. trachomatis rRNA YOEL+probe Ql (Unsp spec) Negative Negative [facility] [address] Work Phone: Comment on above: The APTIMA Combo 2 a ssay is FDA-approved for Chlamydia trachomatis and Neisseria gonorrhoeae testing on female endocervical and vaginal swabs, ThinPrep liquid pap samples, male urine samples and urethral swabs. Performance characteristics for Chlamydia trachomatis and Neisseria gonorrhoeae testing on specific gsx-RPH-fdrnwmlv sample types (female urine samples) have been validated by [facility]. This laboratory is certified by CLIA to perform high complexity testing. Samples from all other sites are not validated for this method. N. gonorrhoeae rRNA YOEL+probe Ql (Unsp spec) Negative Negative [facility] [address] Work Phone: Comment on above: SOURCE: Urine The AP WILL Combo 2 assay is FDA-approved for Chlamydia trachomatis and Neisseria gonorrhoeae testing on female endocervical and vaginal swabs, ThinPrep liquid pap samples, male urine samples and urethral swabs. Performance characteristics for Chlamydia trachomatis and Neisseria gonorrhoeae testing on specific lbs-EUN-pwelbczn sample types (female urine samples) have been validated by [facility]. This laboratory is certified by CLIA to perform high complexity testing. Samples from all other sites are not validated for this method. IO HCG, Urine Test on 06-27-2022 HCG ( test) Ql (U) Negative [facility] [address] Work Phone: [employer] - Office Visiton 06-01 [employer] - Office Visit Diagnoses/Problems Assessed Chlamydia (079.98) [...] THE DEPO IN MARCH. History of Present Dlzzxhz79-qnpv-pxu presents for pain during intimacy. Patient has [...] DAILY Vitals Vital Signs Recorded: 27Jun2022 02:19PM Athoxfsz401 Nnhjrkqwj35 Height5 ft 5 in Wphzgq876 lb (more content not included)... Normal [facility] Office Visit (Primary Care F orms)on 04-04-2022 [...] Anxiety; SURJIT = N; Verified Transmission to [facility]; Last Updated By: [employer]; 04/04/2022 3:21:16 PM Patient Discussion/Summary follow up [...] difference in my mood. Scores and Scales Geary Suicide Severity Rating Scale [id number] 09:24PM (Past Month) Have you wished you [...] 09/21/2019 2:14:11 PM Vitals Vital Signs Recorded: 77Oim5120 02:56PM Heart Rate85 Ttsreufd56, LUE, Sitting Ypkvghrea22, LUE, Sitting Height5 ft 5 in Yjwdsz050 lb 9 oz BMI Dgkxsvvhjw66.56 kg/m2 BSA Calculated1.58 Tobacco Usea) Yes O2 Mpaztosykp07 Physical Exam Constitutional - Well developed, well [...] Apr 08 2022 6:00PM EST (Author) Normal [employer] Tobacco Screening.on 022 Tobacco use status CPHS a) Yes -[facility] [address] DO Work Phone: Geary Suicide Severity Ra ting Scaleon 03-07-2022 Geary Suicide Severity Rating Scale Yes-[facility] Work Phone: Geary Suicide Severity Rating Scale No -[facility] Work Phone: Office Visit (Primary Care F [...] Anxiety; SURJIT = N; Verified Transmission to [facility] #44; Last Updated By: [employer]; 03/07/2022 3:41:34 PM Adult Psychology Referral Evaluation and Treatment Evaluate AND Treat Status: Hold For - Scheduling Requested for: 07Mar2022 Ordered;For: Anxiety; Ordered By: Radha Cary Performed: Order Comments: Counseling in [place] Due: 05Jun2022 Positive depression screening Geary Suicide Severity Rating Scale; Status:Active; Requested for:07Mar2022; Perform:In Office; Due:12Mar2022;Ordered; For:Positive depression screening; Ordered By:Radah Cary; Patient Discussion/Summary Follow up in 1 [...] feel like a zombie. History of Present [age]gw58 year old female here to establish care. [...] = 3 Total score: 19. severe anxiety. Geary Suicide Severity Rating Scale 64Kqy7138 09:24PM (Past Month) Have you wished you [...] cough. Gas (more content not included)... Normal [employer] Tobacco Screening.on 022 Fall risk assessment a) No falls within the last year [employer] Phone: Tobacco use status CP a) Yes [employer] Phone: Cult, Genitalon 01-19-2022 Bacteria identified Aer cx Nom (Genital specimen) [facility] [address] Work Phone: GC + Chlamydia By Amplified Detectionon 01-19-2022 C. trachomatis rRNA YOEL+probe Ql (Unsp spec) Positive Abnormal Negative [facility] [address] Work Phone: Comment on above: The APTIMA Combo 2 a ssay is FDA-approved for Chlamydia trachomatis and Neisseria gonorrhoeae testing on female endocervical and vaginal swabs, ThinPrep liquid pap samples, male urine samples and urethral swabs. Performance characteristics for Chlamydia trachomatis and Neisseria gonorrhoeae testing on specific zgf-ZBE-ordgleqq sample types (female urine samples) have been validated by [facility]. This laboratory is certified by CLIA to perform high complexity testing. Samples from all other sites are not validated for this method. N. gonorrhoeae rRNA YOEL+probe Ql (Unsp spec) Negative Negative [facility] [address] Work Phone: [phone] Comment on above: SOURCE: Urine The AP WILL Combo 2 assay is FDA-approved for Chlamydia trachomatis and Neisseria gonorrhoeae testing on female endocervical and vaginal swabs, ThinPrep liquid pap samples, male urine samples and urethral swabs. Performance characteristics for Chlamydia trachomatis and Neisseria gonorrhoeae testing on specific una-GVB-vkcqnfti sample types (female urine samples) have been validated by [facility]. This laboratory is certified by CLIA to perform high complexity testing. Samples from all other sites are not validated for this method. IO HCG, Urine Test on 01-19-2022 HCG ( test) Ql (U) Negative Normal [facility] [address] [employer] Work Phone: [phone] LMPon 01-19-2022 Last menstrual period start date 10Jan2022 [facility] [address] [employer] Work Phone: [phone] [employer] - Office Visiton 12-30 [employer] - Office Visit Diagnoses/Problems Assessed Abnormal uterine [...] IN 2019. LMP: 01/10/2022 History of Present Oqzufet17-jmey-jsg presents to discuss painful intimacy as well [...] Medications Vitals Vital Signs Recorded: 19Jan2022 01:08PM Fivdxmbj353 Cnmxvspxi08 Height5 ft 5 in Wmmflv997 lb BMI Ysadjzadqx43.64 kg/m2 BSA Calculated1.55 WDR17Shs0270 Physical Exam General: None acute distress Eye: [...] mood and affect. Results/Data IO HCG, Urine Stti42Mqt3492 01:35PMKeara Mckenzie Medline hCG [id number] Exp:04/29/2023 Test NameResultFlagReference IO Urine hCGNegative Signatures Electronically signed by : Keara Mckenzie DO; Jan 19 2022 4:57PM EST (Author) Normal [employer] LMPon 01-16-2022 Last menstrual period start date [id number] [facility] [address] Work Phone: [employer] - Office Visiton 12-29 [employer] - Office Visit No report was sent Normal [employer] Cult, Urineon 10-08-2019 Bacteria identified Cx Nom (U) PATIENT: DEBI VERDUZCO LOCATION: [facility] BILL#: [id number] : 89 AGE: SEX: F ORDERED BY: GLENROY MCKENZIE: URINE COLLECTED: 10/08/19 15:39ANTIBIOTICS AT ELEANOR.: RECEIVED : 10/09/19 01:56SITE: Clean Catch/Voided R E S U L T S URINE CULTURE,BACTERIAL FINAL 10/11/19 17:08 ISOLATE1 : Lactobacillus species >100,000 CFU/ML Abnormal [facility] [address] Work Phone: Metabolic Panelon 09-25-2019 Glucose [Mass/Vol] 85 mg/dL <95 [facility] [address] Work Phone: [phone] Glucose [Mass/Vol] 165 mg/dL <180 [facility] [address] Work Phone: [phone] Glucose [Mass/Vol] 128 mg/dL <155 [facility] [address] Work Phone: [phone] Glucose [Mass/Vol] 101 mg/dL <140 [facility] [address] Work Phone: [phone] Glucose [Mass/Vol] 78 mg/dL 74 - 99 [facility] [address] [employer] Work Phone: Otheron 09-25-2019 SEE BELOW [facility] [address] Work Phone: Comment on above: Diagnostics with glu cose loading dose of 100 g. Reference values from [place] [employer]. Diabetes Care 2015;38(Suppl.1):S8-S16. RPRon 05-20-2019 Reagin Ab RPR Ql (S) Non-Reactive Normal Non-Reactive [facility] Comment on above: Performed By: #### 2 [id number] #### JESSICA [address] [place] [address] C Urineon 05-17-2019 C Urine Final Report: Light growth of Normal skin osvaldo isolated Normal [facility] Comment on above: Performed By: #### 2 [id number] ####JESSICA Microbiology [address] [place] [address] Hep Bs Agon 05-16-2019 Hep Bs Ag Negative Normal Negative [facility] Comment on above: Result Comment: Perf ormed At: CB [facility] [address] [id number] Justa Longoria PhD Ph:[phone] Performed By: #### 2 [id number] ####JESSICA [facility] [employer] [address] [place] [address] ABO/Rh Echoon 05-15-2019 ABO/Rh E Interp... Positive Normal [facility] Comment on above: Performed By: #### 8 [id number] ####JESSICA [facility] [address] [address] Antibody Screen Cap...on Screen Interp... Negative Normal [facility] Comment on above: Performed By: #### 8 [id number] ####JESSICA [facility] [address] [address] Auto Diffon 05-15-2019 Basophils (Bld) [#/Vol] 0.0 E3/mcL Normal 0.0-0.2 [facility] Comment on above: Order Comment: Order Added by Discern Expert. Performed By: #### 2 [id number] ####JESSICA [address] [place] [address] Basophils/100 WBC (Bld) 0.4 % Normal 0.0-2.0 [facility] Comment on above: Order Comment: Order Added by Discern Expert. Performed By: #### 2 [id number] ####JESSICA [address]iv[address] [place] [address] Eos Absolute 0.1 E3/mcL Normal 0.0-0.7 [facility] Comment on above: Order Comment: Order Added by Discern Expert. Performed By: #### 2 [id number] ####JESSICA ZgjAmne[address] [place] [address] Eosinophils/100 WBC (Bld) 1.1 % Normal 0.0-11.0 [facility] Comment on above: Order Comment: Order Added by Discern Expert. Performed By: #### 2 200082 ####JESSICA GtiChpp49[address] [place] [address] Lymphocytes (Bld) [#/Vol] 1.6 E3/mcL Normal 1.2-3.4 [facility] Comment on above: Order Comment: Order Added by Discern Expert. Performed By: #### 2 [id number] ####JESSICA [address] [place] [address] Lymphocytes/100 WBC (Bld) 21.5 % Normal 20.0-55.0 [facility] Comment on above: Order Comment: Order Added by Discern Expert. Performed By: #### 2 562317 ####JESSICA [address] [place] [address] Wirt Absolute 0.7 E3/mcL Normal 0.0-0.7 [facility] Comment on above: Order Comment: Order Added by Discern Expert. Performed By: #### 2 736327 ####JESSICA [address] [place] [address] Monocytes/100 WBC (Bld) 9.0 % Normal 0.0-10.0 [facility] Comment on above: Order Comment: Order Added by Discern Expert. Performed By: #### 2 [id number] ####JESSICA [address] [place] [address] Neutro Absolute 5.0 E3/mcL Normal 1.4-6.5 [facility] Comment on above: Order Comment: Order Added by Discern Expert. Performed By: #### 2 868631 ####JESSICA [address] [place] [address] Neutro Auto 68.0 % Normal 37.0-75.0 [facility] Comment on above: Order Comment: Order Added by Discern Expert. Performed By: #### 2 [id number] ####JESSICA [address] [place] [address] CBC w/ Auto Diffon 9 Erythrocyte distribution width (RBC) [Ratio] 13.1 % Normal 11.5-14.5 [facility] Comment on above: Performed By: #### 2 037128 ####JESSICA [address] [place] [address] Hematocrit (Bld) [Volume fraction] 41.4 % Normal 36.0-48.0 [facility] Comment on above: Performed By: #### 2 396024 ####JESSICA [address]XxvJqsq9820 [place] [address] Hemoglobin (Bld) [Mass/Vol] 14.2 g/dL Normal 12.0-16.0 [facility] Comment on above: Performed By: #### 2 851429 ####JESSICA GonzalezYiwPofg9248 [place] [address] MCH (RBC) [Entitic mass] 29.7 pg Normal 27.0-31.0 [facility] Comment on above: Performed By: #### 2 [id number] ####JESSICA GonzalezOvjBzsg3143 [place] [address] MCHC (RBC) [Mass/Vol] 34.3 g/dL Normal 33.0-37.0 [facility] Comment on above: Performed By: #### 2 790578 ####JESSICA GonzalezJioGmsz3844 [place] [address] MCV (RBC) [Entitic vol] 86.6 fL Normal 78.0-100.0 [facility] Comment on above: Performed By: #### 2 210643 ####JESSICA GonzalezZbePgtz1985 [place] [address] Platelet mean volume (Bld) [Entitic vol] 9.2 fL Normal 7.4-11.0 [facility] Comment on above: Performed By: #### 2 916358 ####JESSICA GonzalezOcpOuqh3948 [place] [address] Platelets (Bld) [#/Vol] 192 E3/mcL Normal 130-400 [facility] Comment on above: Performed By: #### 2 236873 ####JESSICA FhcRyxy[address] [place] [address] RBC (Bld) [#/Vol] 4.78 E6/mcL Normal 3.90-5.40 [facility] Comment on above: Performed By: #### 2 717561 ####JESSICA DqqLgan9412 [place] [address] WBC (Bld) [#/Vol] 7.3 E3/mcL Normal 3.6-11.0 [facility] Comment on above: Performed By: #### 2 044791 ####JESSICA SdsNpmu[address]175 [place] [address] Chlamydia GC by PCRon 2018 Chlamydia by PCR. Not Detected Normal Not Detected [facility] Comment on above: Result Comment: Xper t CT/NG Assay performance has not been evaluated in patients less than 14 years of age. Performed By: #### 3 [id number] ####JESSICA Misc Micro SubSection, Gonorrhoeae by PCR Not Detected Normal Not Detected [facility] Comment on above: Result Comment: Xper t CT/NG Assay performance has not been evaluated in patients less than 14 years of age. Performed By: #### 3 [id number] ####JESSICA Misc Micro SubSection, HIV-1/2 Ag/Abon 05-15-2019 HIV Combo Internal Control Line Reactive Normal Reactive [facility] Comment on above: Performed By: #### 6 [id number] ####JESSICA Chemistry Manual [address] [place] [address] HIV-1 & HIV-2 Antibodies Non-Reactive Normal Non-Reactive [facility] Comment on above: Performed By: #### 6 [id number] ####JESSICA Chemistry Manual [address] [place] [address] HIV-1 p-24 Antigen Non-Reactive Normal Non-Reactive [facility] Comment on above: Performed By: #### 6 [id number] ####JESSICA Chemistry Manual [address] [place] [address] HIV-1/2 Ag/Ab Interp Negative Normal Negative [facility] Comment on above: Performed By: #### 6 [id number] ####JESSICA Chemistry Manual [address] [place] [id number] Rubella IgG Lvlon 05-15-2019 Rubella IgG Lvl 25.3 (POS) Normal [facility] Comment on above: Result Comment: <10I U/ml NON REACTIVE: NOT IMMUNE 10-15 IU/ml RUBELLA SPECIFIC AB PRESENT, EVALUATE FURTHER TO DETERMINE IMMUNE STATUS >15 IU/ml REACTIVE, IMMUNE Performed By: #### 2 [id number] ####JESSICA [address]sd[address] [place] [address] U BhCG Qlton 02-03-2019 HCG.beta subunit Qn Negative Normal Neg [facility] Comment on above: Performed By: #### 2 [id number] #### JESSICA Urinalysis Manual [address] [place] [address] UA Completeon 02-03-2019 Color (U) Yellow Normal Yellow [facility] Comment on above: Performed By: #### 8 [id number] ####JESSICA Urinalysis Automated [address] [place] [id number] Glucose (U) [Mass/Vol] Negative Normal Negative [facility] Comment on above: Performed By: #### 8 [id number] ####JESSICA Urinalysis Automated [address] [place] [address] Ketones Ql (U) Negative Normal Negative [facility] Comment on above: Performed By: #### 8 [id number] ####JESSICA Urinalysis Automated [address]ellpcpqm3[address] [place] [address] RBC (U) [#/Vol] 20-50 Abnormal 0-3 [facility] Comment on above: Performed By: #### 8 [id number] ####JESSICA Urinalysis Automated Ebfkrrying[address]1 [place] [address] UA Blood 2+ Abnormal Negative [facility] Comment on above: Performed By: #### 8 [id number] ####JESSICA Urinalysis Automated [address]rpayvkqzo3449 [place] [address] UA Bacteria Trace Abnormal None [facility] Comment on above: Performed By: #### 8 [id number] ####JESSICA Urinalysis Automated Hiagnmdpod0442 [place] [address] UA Clarity SltCloudy Abnormal Clear [facility] Comment on above: Performed By: #### 8 [id number] ####JESSICA Urinalysis Automated [address]uttjhfwso39[address] [place] [address] UA Hyal Cast 3-5 Abnormal 0-2 [facility] Comment on above: Performed By: #### 8 [id number] ####JESSICA Urinalysis Automated [address]ftoloqf4[address] [place] [address] UA Leuk Est Trace Normal Negative [facility] Comment on above: Performed By: #### 8 [id number] ####JESSICA Urinalysis Automated [address]izrokr7635 [place] [address] UA Mucous Moderate Abnormal Trace [facility] Comment on above: Performed By: #### 8 [id number] ####JESSICA Urinalysis Automated [address]qphgi29[address] [place] [address] UA Nitrite Negative Normal Negative [facility] Comment on above: Performed By: #### 8 [id number] ####JESSICA Urinalysis Automated [address]bf[address] [place] [address] UA pH 5.0 Normal 4.6-8.0 [facility] Comment on above: Performed By: #### 8 [id number] ####JESSICA Urinalysis Automated [address] [place] [address] UA Protein Negative Normal Negative [facility] Comment on above: Performed By: #### 8 [id number] ####JESSICA Urinalysis Automated [address] [place] [address] UA Spec Grav 1.028 Normal 1.003-1.030 [facility] Comment on above: Performed By: #### 8 [id number] ####JESSICA Urinalysis Automated Ifccegyvxs9009 [place] [address] UA Squam Epithelial 0-5 Normal 0-5 [facility] Comment on above: Performed By: #### 8 [id number] ####JESSICA Urinalysis Automated [address] [place] [address] UA Urobilinogen Negative Normal [facility] Comment on above: Result Comment: Due to a manufacturing issue, low positive urobilinogen results may be fasely positive. Correlate with urine bilirubin and additional clinical/laboratory findings to assess the risk of hemolytic anemia or liver disease. If clinically indicated, repeat testing with an alternate method is available by contacting the laboratory within 24 hours. Performed By: #### 8 [id number] ####JESSICA Urinalysis Automated [id number] [place] [address] UA WBC 5-10 Abnormal 0-5 [facility] Comment on above: Performed By: #### 8 [id number] ####JESSICA Urinalysis Automated [id number] [place] [address] Urobilinogen Qn (U) Positive Abnormal Negative [facility] Comment on above: Performed By: #### 8 [id number] ####JESSICA Urinalysis Automated [id number] [place] [address] XR Knee Complete Lefton 11-28 XR Knee Complete Left Exam Date/Time: 12/16/2018 19:08 EDT Reason for Exam: Pain, Traumatic Report STUDY: XR Knee Complete Left;; 12/16/2018 7:08 pm INDICATION: Pain, Traumatic. COMPARISON: None. ACCESSION NUMBER(S): [id number] ORDERING CLINICIAN: Ramiro Frank FINDINGS: Left knee four views. The osseous structures and soft tissues appear normal. No fracture or dislocation is noted IMPRESSION: Unremarkable left knee FINAL REPORT Dictated: 12/16/2018 7:24 pm David Moreira MD Signed (Electronic Signature): 12/16/2018 7:24 pm Signed by: David Moreira MD Technologist: [facility] C Bloodon 11-23-2018 C Blood Final Report: No jason wth at 5 Days [facility] Comment on above: Performed By: #### 2 [id number] #### JESSICA Urinalysis Manual Subsection [address] [place] [address] C Urineon 11-20-2018 C Urine Final Report: [...] : <=4 S SXT : <=2/38 S [facility] Comment on above: Performed By: #### 2 [id number] #### JESSICA Urinalysis Manual Subsection [address] [place] [address] Auto Diffon 11-19-2018 Basophils (Bld) [#/Vol] 0.1 E3/mcL Normal 0.0-0.2 [facility] Comment on above: Order Comment: Order Added by Discern Expert. Performed By: #### 2 [id number] #### JESSICA Urinalysis Manual Subsection [facility] [place] [address] Basophils/100 WBC (Bld) 0.6 % Normal 0.0-2.0 [facility] Comment on above: Order Comment: Order Added by Discern Expert. Performed By: #### 2 [id number] #### JESSICA Urinalysis Manual Subsection [facility] [place] [address] Eos Absolute 0.3 E3/mcL Normal 0.0-0.7 [facility] Comment on above: Order Comment: Order Added by Discern Expert. Performed By: #### 2 084016 #### JESSICA Urinalysis Manual Subsection [address] [place] [address] Eosinophils/100 WBC (Bld) 3.3 % Normal 0.0-11.0 [facility] Comment on above: Order Comment: Order Added by Discern Expert. Performed By: #### 2 [id number] #### JESSICA Urinalysis Manual Subsection [address] [place] [address] Lymphocytes (Bld) [#/Vol] 1.9 E3/mcL Normal 1.2-3.4 [facility] Comment on above: Order Comment: Order Added by Discern Expert. Performed By: #### 2 [id number] #### JESSICA Urinalysis Manual Subsection [address] [place] [address] Lymphocytes/100 WBC (Bld) 21.1 % Normal 20.0-55.0 [facility] Comment on above: Order Comment: Order Added by Discern Expert. Performed By: #### 2 [id number] #### JESSICA Urinalysis Manual Subsection [address] [place] [address] Wirt Absolute 1.0 E3/mcL High 0.0-0.7 [facility] Comment on above: Order Comment: Order Added by Discern Expert. Performed By: #### 2 [id number] #### JESSICA Urinalysis Manual Subsection [facility] [place] [address] Monocytes/100 WBC (Bld) 11.3 % High 0.0-10.0 [facility] Comment on above: Order Comment: Order Added by Discern Expert. Performed By: #### 2 648278 #### JESSICA Urinalysis Manual Subsection [address] [place] [address] Neutro Absolute 5.7 E3/mcL Normal 1.4-6.5 [facility] Comment on above: Order Comment: Order Added by Discern Expert. Performed By: #### 2 [id number] #### JESSICA Urinalysis Manual Subsection [address] [place] [address] Neutro Auto 63.7 % Normal 37.0-75.0 [facility] Comment on above: Order Comment: Order Added by Discern Expert. Performed By: #### 2 [id number] #### JESSICA Urinalysis Manual Subsection [address] [place] [address] BMPon 11-19-2018 Anion gap [Moles/Vol] 8 mmol/L Low 10-20 [facility] Comment on above: Performed By: #### 2 956350 #### JESSICA Urinalysis Manual Subsection [address] [place] [address] Calcium [Mass/Vol] 8.4 mg/dL Low 8.5-10.7 [facility] Comment on above: Performed By: #### 2 719227 #### JESSICA Urinalysis Manual Subsection [address] [place] [address] Chloride [Moles/Vol] 110 mmol/L High 98-107 [facility] Comment on above: Performed By: #### 2 524712 #### JESSICA Urinalysis Manual Subsection [address] [place] [address] CO2 [Moles/Vol] 27.0 mmol/L Normal 21.0-32.0 [facility] Comment on above: Performed By: #### 2 439552 #### JESSICA Urinalysis Manual Subsection [address] [place] [address] Creatinine [Mass/Vol] 0.7 mg/dL Normal 0.5-1.1 [facility] Comment on above: Performed By: #### 2 966612 #### JESSICA Urinalysis Manual Subsection [address] [place] [address] Glucose [Mass/Vol] 80 mg/dL Normal 70-99 [facility] Comment on above: Performed By: #### 2 078996 #### JESSICA Urinalysis Manual Subsection [address] [place] [address] Potassium [Moles/Vol] 3.7 mmol/L Normal 3.5-5.3 [facility] Comment on above: Performed By: #### 2 503203 #### JESSICA Urinalysis Manual Subsection [address] [place] [address]141 Sodium [Moles/Vol] 141 mmol/L Normal 136-145 [facility] Comment on above: Performed By: #### 2 107694 #### JESSICA Urinalysis Manual Subsection [address] [place] [address] Urea nitrogen [Mass/Vol] 8 mg/dL Normal 6-23 [facility] Comment on above: Performed By: #### 2 342456 #### JESSICA Urinalysis Manual Subsection [address] [place] [address] Urea nitrogen/Creatinine [Mass ratio] 11.4 ratio Normal 5.4-30.0 [facility] Comment on above: Performed By: #### 2 926719 #### JESSICA Urinalysis Manual Subsection [address] [place] [address] 922[address] CBC w/ Auto Diffon 9 Erythrocyte distribution width (RBC) [Ratio] 14.1 % Normal 11.5-14.5 [facility] Comment on above: Performed By: #### 2 713124 #### JESSICA Urinalysis Manual Subsection [address] [place] [address] Hematocrit (Bld) [Volume fraction] 35.9 % Low 36.0-48.0 [facility] Comment on above: Performed By: #### 2 970887 #### JESSICA Urinalysis Manual Subsection [address] [place] [address] 57808 Hemoglobin (Bld) [Mass/Vol] 11.9 g/dL Low 12.0-16.0 [facility] Comment on above: Performed By: #### 2 231452 #### JESSICA Urinalysis Manual Subsection [address] [place] [address] 610[address] MCH (RBC) [Entitic mass] 29.0 pg Normal 27.0-31.0 [facility] Comment on above: Performed By: #### 2 222579 #### JESSICA Urinalysis Manual Subsection [address] [place] [address] MCHC (RBC) [Mass/Vol] 33.2 g/dL Normal 33.0-37.0 [facility] Comment on above: Performed By: #### 2 525174 #### JESSICA Urinalysis Manual Subsection [address] [place] [address] MCV (RBC) [Entitic vol] 87.1 fL Normal 78.0-100.0 [facility] Comment on above: Performed By: #### 2 025284 #### JESSICA Urinalysis Manual Subsection [address] [place] [address] Platelet mean volume (Bld) [Entitic vol] 8.8 fL Normal 7.4-11.0 [facility] Comment on above: Performed By: #### 2 652135 #### JESSICA Urinalysis Manual Subsection [address] [place] [address] Platelets (Bld) [#/Vol] 164 E3/mcL Normal 130-400 [facility] Comment on above: Performed By: #### 2 211024 #### JESSICA Urinalysis Manual Subsection [address] [place] [address] RBC (Bld) [#/Vol] 4.12 E6/mcL Normal 3.90-5.40 [facility] Comment on above: Performed By: #### 2 762850 #### JESSICA Urinalysis Manual Subsection [address] [place], [place] [address] WBC (Bld) [#/Vol] 8.9 E3/mcL Normal 3.6-11.0 [facility] Comment on above: Performed By: #### 2 501033 #### JESSICA Urinalysis Manual Subsection [address] [place], [place] [address] eGFRon 11-19-2018 GFR/1.73 sq M predicted among non-blacks MDRD (S/P/Bld) [Vol rate/Area] mL/min/{1.73_m2} Normal [facility] Comment on above: Order Comment: Order added by Alcides Expert. Performed By: #### 2 757258 #### JESSICA Urinalysis Manual [address] [place] [address] Auto Diffon 11-18-2018 Basophils (Bld) [#/Vol] 0.1 E3/mcL Normal 0.0-0.2 [facility] Comment on above: Order Comment: Order Added by Discern Expert. Performed By: #### 2 828355 #### JESSICA RemHemo [address] [place] [address] Basophils/100 WBC (Bld) 0.3 % Normal 0.0-2.0 [facility] Comment on above: Order Comment: Order Added by Alcides Expert. Performed By: #### 2 965911 #### JESSICA RemHemo [address] [place] [address] Eos Absolute 0.2 E3/mcL Normal 0.0-0.7 [facility] Comment on above: Order Comment: Order Added by Alcides Expert. Performed By: #### 2 224164 #### JESSICA RemHemo [address] [place] [address] Eosinophils/100 WBC (Bld) 1.1 % Normal 0.0-11.0 [facility] Comment on above: Order Comment: Order Added by Alcides Expert. Performed By: #### 2 128415 #### JESSICA RemHemo [address] [place] [address] Lymphocytes (Bld) [#/Vol] 1.9 E3/mcL Normal 1.2-3.4 [facility] Comment on above: Order Comment: Order Added by Alcides Expert. Performed By: #### 2 467500 #### JESSICA [address]Hemo [address] [place] [address] Lymphocytes/100 WBC (Bld) 10.5 % Low 20.0-55.0 [facility] Comment on above: Order Comment: Order Added by Alcides Expert. Performed By: #### 2 058108 #### JESSICA [address]Hemo [address] [place] [address] Wirt Absolute 1.0 E3/mcL High 0.0-0.7 [facility] Comment on above: Order Comment: Order Added by Discern Expert. Performed By: #### 2 210629 #### JESSICA [address]Hemo [address] [place] [address] Monocytes/100 WBC (Bld) 5.4 % Normal 0.0-10.0 [facility] Comment on above: Order Comment: Order Added by Discern Expert. Performed By: #### 2 911122 #### JESSICA RemHemo [address] [place] [address] Neutro Absolute 15.2 E3/mcL High 1.4-6.5 [facility] Comment on above: Order Comment: Order Added by Discern Expert. Performed By: #### 2 245029 #### JESSICA GonzalezH[address] [place] [address] Neutro Auto 82.7 % High 37.0-75.0 [facility] Comment on above: Order Comment: Order Added by Discern Expert. Performed By: #### 2 402372 #### JESSICA RemHemo [address] [place] [address] BMPon 11-18-2018 Anion gap [Moles/Vol] 13 mmol/L Normal 10-20 [facility] Comment on above: Performed By: #### 2 367840 #### JESSICA [facility] [address] [place] [address] Calcium [Mass/Vol] 9.5 mg/dL Normal 8.5-10.7 [facility] Comment on above: Performed By: #### 2 057106 #### JESSICA [facility] [address] [place] [address] Chloride [Moles/Vol] 105 mmol/L Normal 98-107 [facility] Comment on above: Performed By: #### 2 624408 #### JESSICA [facility] [address] [place] [address] CO2 [Moles/Vol] 26.0 mmol/L Normal 21.0-32.0 [facility] Comment on above: Performed By: #### 2 638184 #### JESSICA [facility] [address] [place] [address] Creatinine [Mass/Vol] 0.7 mg/dL Normal 0.5-1.1 [facility] Comment on above: Performed By: #### 2 007738 #### JESSICA [facility] [address] [place] [address] Glucose [Mass/Vol] 87 mg/dL Normal 70-99 [facility] Comment on above: Performed By: #### 2 396705 #### JESSICA [facility] [address] [place] [address] Potassium [Moles/Vol] 3.6 mmol/L Normal 3.5-5.3 [facility] Comment on above: Performed By: #### 2 262414 #### JESSICA [facility] [address] [place] [address] Sodium [Moles/Vol] 140 mmol/L Normal 136-145 [facility] Comment on above: Performed By: #### 2 564605 #### JESSICA [facility] [address] [place] [address] Urea nitrogen [Mass/Vol] 10 mg/dL Normal 6-23 [facility] Comment on above: Performed By: #### 2 620658 #### JESSICA [facility] [address] [place] [address] Urea nitrogen/Creatinine [Mass ratio] 14.3 ratio Normal 5.4-30.0 [facility] Comment on above: Performed By: #### 2 260405 #### JESSICA [employer] [address] [place] [address] CBC w/ Auto Diffon 9 Erythrocyte distribution width (RBC) [Ratio] 14.5 % Normal 11.5-14.5 [facility] Comment on above: Performed By: #### 2 643460 #### JESSICA RemHemo [address] [place] [address] Hematocrit (Bld) [Volume fraction] 42.1 % Normal 36.0-48.0 [facility] Comment on above: Performed By: #### 2 895640 #### JESSICA RemHemo [address] [place] [address] Hemoglobin (Bld) [Mass/Vol] 14.0 g/dL Normal 12.0-16.0 [facility] Comment on above: Performed By: #### 2 225062 #### JESSICA RemHemo [address] [place] [address] MCH (RBC) [Entitic mass] 28.7 pg Normal 27.0-31.0 [facility] Comment on above: Performed By: #### 2 173882 #### JESSICA GonzalezHemo [address] [place] [address] MCHC (RBC) [Mass/Vol] 33.2 g/dL Normal 33.0-37.0 [facility] Comment on above: Performed By: #### 2 807383 #### JESSICA GonzalezHemo [address] [place] [address] MCV (RBC) [Entitic vol] 86.4 fL Normal 78.0-100.0 [facility] Comment on above: Performed By: #### 2 714328 #### JESSICA GonzalezHemo [address] [place] [address] Platelet mean volume (Bld) [Entitic vol] 8.7 fL Normal 7.4-11.0 [facility] Comment on above: Performed By: #### 2 629021 #### JESSICA GonzalezHemo [facility] [place] [address] Platelets (Bld) [#/Vol] 236 E3/mcL Normal 130-400 [facility] Comment on above: Performed By: #### 2 551469 #### JESSICAEugenie GonzalezHemo [facility] [place] [address] RBC (Bld) [#/Vol] 4.87 E6/mcL Normal 3.90-5.40 [facility] Comment on above: Performed By: #### 2 265614 #### JESSICA GonzalezH[address] [place] [address] WBC (Bld) [#/Vol] 18.4 E3/mcL High 3.6-11.0 [facility] Comment on above: Performed By: #### 2 516014 #### JESSICA RemHemo [address] [place] [address] CT Abdomen/Pelvis w/o Contra ston 11-18-2018 CT Abdomen/Pelvis w/o Contrast Exam Date/Time: 11/18/2018 02:24 EST Reason for Exam: Pain Report STUDY: CT Abdomen/Pelvis w/o Contrast; 11/18/2018 2:24 am INDICATION: Pain. Right flank pain/right upper quadrant pain, diagnosed with UTI on 11/13/2018. Periumbilical pain intermittent for 5 days. COMPARISON: CT abdomen and pelvis 11/13/2018. ACCESSION NUMBER(S): [id number] ORDERING CLINICIAN: Isaiah Gamble TECHNIQUE: CT of [...] Signed by: Alpa Beckett DO Technologist: [facility] Fun Panelon 11-18-2018 Albumin [Mass/Vol] 4.4 g/dL Normal 3.4-5.0 [facility] Comment on above: Performed By: #### 2 526876 #### JESSICA [employer] [facility] [place] [address] Albumin/Globulin [Mass ratio] 1.6 {ratio} Normal 1.1-1.9 [facility] Comment on above: Performed By: #### 2 928751 #### JESSICA [employer] [facility] [place] [address] Alk Phos 90 Int._Unit/L Normal 33-110 [facility] Comment on above: Performed By: #### 2 789655 #### JESSICA [employer] [facility] [place] [address] ALT [Catalytic activity/Vol] 13 Int._Unit/L Normal 7-45 [facility] Comment on above: Performed By: #### 2 066880 #### JESSICA [employer] [facility] [place] [address] AST [Catalytic activity/Vol] 15 Int._Unit/L Normal 9-39 [facility] Comment on above: Performed By: #### 2 514367 #### JESSICA RemAlmondNet [address] [place] [address] Bili Direct 0.04 mg/dL Normal 0.00-0.30 [facility] Comment on above: Performed By: #### 2 673495 #### JESSICA [employer] [facility] [place] [address] Bili Indirect 0.25 mg/dL Normal [facility] Comment on above: Result Comment: No e stablished ranges available for the indirect bilirubin Performed By: #### 2 423122 #### JESSICA [facility] [address] [place] [address] Bili Total 0.29 mg/dL Normal 0.00-1.20 [facility] Comment on above: Performed By: #### 2 183222 #### JESSICA [facility] [address] [place] [address] Globulin (S) [Mass/Vol] 3.0 g/dL Normal 2.0-4.0 [facility] Comment on above: Performed By: #### 2 481830 #### JESSICA [employer] [address] [place] [address] Protein [Mass/Vol] 7.2 g/dL Normal 6.4-8.2 [facility] Comment on above: Performed By: #### 2 372768 #### JESSICA [employer] [facility] [place] [address] Lipase Levelon 11-18-2018 Lipase Lvl 18 Int._Unit/L Normal 9-82 [facility] Comment on above: Performed By: #### 2 327747 #### JESSICA [employer] [address] [place] [address] U BhCG Qlton 11-18-2018 HCG.beta subunit Qn Negative Normal Neg [facility] Comment on above: Performed By: #### 2 091506 #### JESSICA Urinalysis Manual Subsection [address] [place] [address] UA Completeon 11-18-2018 Color (U) Yellow Normal Yellow [facility] Comment on above: Performed By: #### 2 312624 #### JESSICA Urinalysis Manual Subsection [facility] [place] [address] Glucose (U) [Mass/Vol] Negative Normal Negative [facility] Comment on above: Performed By: #### 2 369389 #### JESSICA Urinalysis Manual Subsection [facility] [place] [address] Ketones Ql (U) Negative Normal Negative [facility] Comment on above: Performed By: #### 2 603232 #### JESSICA Urinalysis Manual Subsection [facility] [place] [address] RBC (U) [#/Vol] 5-10 Abnormal 0-3 [facility] Comment on above: Performed By: #### 2 434378 #### JESSICA Urinalysis Manual Subsection [facility] [place] [address] UA Blood 1+ Abnormal Negative [facility] Comment on above: Performed By: #### 2 400718 #### JESSICA Urinalysis Manual Subsection [facility] [place] [address] UA Bacteria 1+ /HPF Abnormal None [facility] Comment on above: Performed By: #### 2 018516 #### JESSICA Urinalysis Manual Subsection [address] [place] [address] UA Clarity Cloudy Abnormal Clear [facility] Comment on above: Performed By: #### 2 783097 #### JESSICA Urinalysis Manual Subsection [address] [place] [address] UA Leuk Est 3+ Abnormal Negative [facility] Comment on above: Performed By: #### 2 749603 #### JESSICA Urinalysis Manual Subsection [address] [place] [address] UA Mucous Occasional Abnormal Trace [facility] Comment on above: Performed By: #### 2 026198 #### JESSICA Urinalysis Manual Subsection [address] [place] [address] UA Nitrite Negative Normal Negative [facility] Comment on above: Performed By: #### 2 699441 #### JESSICA Urinalysis Manual Subsection [address] [place] [address] UA pH 5.0 Normal 4.6-8.0 [facility] Comment on above: Performed By: #### 2 473055 #### JESSICA Urinalysis Manual Subsection [address] [place] [address] UA Protein 1+ Abnormal Negative [facility] Comment on above: Performed By: #### 2 000027 #### JESSICA Urinalysis Manual Subsection [address] [place] [address] UA Spec Grav 1.014 Normal 1.003-1.030 [facility] Comment on above: Performed By: #### 2 662469 #### JESSICA Urinalysis Manual Subsection [address] [place] [address] UA Squam Epithelial 0-5 Normal 0-5 [facility] Comment on above: Performed By: #### 2 707927 #### JESSIAC Urinalysis Manual Subsection [address] [place] [address] UA Urobilinogen Negative Normal [facility] Comment on above: Result Comment: Due to a manufacturing issue, low positive urobilinogen results may be fasely positive. Correlate with urine bilirubin and additional clinical/laboratory findings to assess the risk of hemolytic anemia or liver disease. If clinically indicated, repeat testing with an alternate method is available by contacting the laboratory within 24 hours. Performed By: #### 2 [id number] #### JESSICA Urinalysis Manual Subsection [facility] [place] [address] UA WBC >50 Abnormal 0-5 [facility] Comment on above: Performed By: #### 2 367092 #### JESSICA Urinalysis Manual Subsection [facility] [place] [address] UA WBC Clump Occasional Abnormal None [facility] Comment on above: Performed By: #### 2 748677 #### JESSICA Urinalysis Manual Subsection [facility] [place] [address] Urobilinogen Qn (U) Negative Normal Negative [facility] Comment on above: Performed By: #### 2 797501 #### JESSICA Urinalysis Manual Subsection [address] [place] [address] eGFRon 11-18-2018 GFR/1.73 sq M predicted among non-blacks MDRD (S/P/Bld) [Vol rate/Area] mL/min/{1.73_m2} Normal [facility] Comment on above: Order Comment: Order added by Discern Expert. Performed By: #### 1 [id number] #### JESSICA [employer] [address] [place] [address] CT Abdomen/Pelvis w/o Contra ston 11-13-2018 CT Abdomen/Pelvis w/o Contrast Exam Date/Time: 11/13/2018 20:08 EST Reason for Exam: Pain Report STUDY: CT Abdomen/Pelvis w/o Contrast; 11/13/2018 8:08 pm INDICATION: Pain. COMPARISON: None. ACCESSION NUMBER(S): [id number] ORDERING CLINICIAN: Ramiro Frank TECHNIQUE: CT of [...] by: David Montanez MD Technologist: AM Normal [facility] U BhCG Qlton 11-13-2018 HCG.beta subunit Qn Negative Normal Neg [facility] Comment on above: Performed By: #### 2 [id number] #### JESSICA Urinalysis Manual [address] [place] [address] UA Completeon 11-13-2018 Color (U) Yellow Normal Yellow [facility] Comment on above: Performed By: #### 8 [id number] #### JESSICA Urinalysis Automated [address] [place] [address] Glucose (U) [Mass/Vol] Negative Normal Negative [facility] Comment on above: Performed By: #### 8 [id number] #### JESSICA Urinalysis Automated [address] [place] [address] Ketones Ql (U) Negative Normal Negative [facility] Comment on above: Performed By: #### 8 [id number] #### JESSICA Urinalysis Automated [address] [place] [address] RBC (U) [#/Vol] /uL Abnormal 0-3 [facility] Comment on above: Performed By: #### 8 [id number] #### JESSICA Urinalysis Automated [address] [place] [address] UA Blood 3+ Normal Negative [facility] Comment on above: Performed By: #### 8 [id number] #### JESSICA Urinalysis Automated [address] [place] [address] UA Bacteria 4+ /HPF Abnormal None [facility] Comment on above: Performed By: #### 8 [id number] #### JESSICA Urinalysis Automated Subsection [facility] [place] [address] UA Clarity Cloudy Abnormal Clear [facility] Comment on above: Performed By: #### 8 [id number] #### JESSICA Urinalysis Automated Subsection [facility] [place] [address] UA Leuk Est 3+ Abnormal Negative [facility] Comment on above: Performed By: #### 8 [id number] #### JESSICA Urinalysis Automated Subsection [facility] [place] [address] UA Mucous Few Abnormal Trace [facility] Comment on above: Performed By: #### 8 [id number] #### JESSICA Urinalysis Automated Subsection [facility] [place] [address] UA Nitrite Positive Abnormal Negative [facility] Comment on above: Performed By: #### 8 [id number] #### JESSICA Urinalysis Automated Subsection [address] [place] [address] UA pH 6.0 Normal 4.6-8.0 [facility] Comment on above: Performed By: #### 8 [id number] #### JESSICA Urinalysis Automated Subsection [facility] [place] [address] UA Protein 2+ Abnormal Negative [facility] Comment on above: Performed By: #### [id number] #### JESSICA Urinalysis Automated Subsection [facility] [place] [address] UA Spec Grav 1.018 Normal 1.003-1.030 [facility] Comment on above: Performed By: #### [id number] #### JESSICA Urinalysis Automated Subsection [facility] [place] [address] UA Squam Epithelial 0-5 Normal 0-5 [facility] Comment on above: Performed By: #### [id number] #### JESSICA Urinalysis Automated Subsection [facility] [place] [address] UA Urobilinogen Negative Normal [facility] Comment on above: Result Comment: Due to a manufacturing issue, low positive urobilinogen results may be fasely positive. Correlate with urine bilirubin and additional clinical/laboratory findings to assess the risk of hemolytic anemia or liver disease. If clinically indicated, repeat testing with an alternate method is available by contacting the laboratory within 24 hours. Performed By: #### [id number] #### JESSICA Urinalysis Automated Subsection [facility] [place] [address] UA WBC >50 Abnormal 0-5 [facility] Comment on above: Performed By: #### [id number] #### JESSICA Urinalysis Automated Subsection [address] [place] [address] UA WBC Clump Few Abnormal None [facility] Comment on above: Performed By: #### [id number] #### JESSICA Urinalysis Automated Subsection [address] [place] [address] Urobilinogen Qn (U) Negative Normal Negative [facility] Comment on above: Performed By: #### [id number] #### JESSICA Urinalysis Automated Subsection [address] [place], [place] [id number] Vital Signs Date Time Vital Sign Value Performing Clinician Facility 08-09-2025 09:05-0500 Body height 165.1 cm Radha HENRYC Work Phone: [facility] 08-09-2025 09:05-0500 Body mass index (BMI) [Ratio] 28.1 kg/m2 Radha Cary NP-C Work Phone: [facility] 08-09-2025 09:05-0500 Body weight 76.79 kg Radha Cary NP-C Work Phone: [facility] 08-09-2025 09:05-0500 Diastolic blood pressure 78 mm[Hg] Radha Cary NP-C Work Phone: [facility] 08-09-2025 09:05-0500 Systolic blood pressure 106 mm[Hg] Radha Cary NP-C Work Phone: [facility] 08-05-2025 13:00-0500 Body mass index (BMI) [Ratio] 27.3 kg/m2 Radha Cary CALENDER MACHINE OPERATOR HELPER-C Work Phone: [facility] 08-05-2025 13:00-0500 Body weight 74.44 kg Radha Cary CALENDER MACHINE OPERATOR HELPER-C Work Phone: 6(211)079-553646 [place] [address] 08-05-2025 13:00-0500 Diastolic blood pressure 72 mm[Hg] Radha Cary CALENDER MACHINE OPERATOR HELPER-C Work Phone: 5(477)504-726603 [place] [address] 08-05-2025 13:00-0500 Systolic blood pressure 115 mm[Hg] Radha Cary CALENDER MACHINE OPERATOR HELPER-C Work Phone: 8(828)074-924103 [place] [address] 08-04-2025 13:05-0500 Heart rate 107 /min Radha Cary CALENDER MACHINE OPERATOR HELPER-C Work Phone: 1(096)609-977503 [place] [address] 08-04-2025 13:05-0500 SaO2% (BldA) [Mass fraction] 98 % Radha Cary CALENDER MACHINE OPERATOR HELPER-C Work Phone: 7(993)094-652346 [place] [address] 08-04-2025 12:44-0500 Body mass index (BMI) [Ratio] 27.3 kg/m2 Radha Cary CALENDER MACHINE OPERATOR HELPER-C Work Phone: [facility] 08-04-2025 12:44-0500 Body weight 74.38 kg Radha Cary CALENDER MACHINE OPERATOR HELPER-C Work Phone: 8(467)754-080046 [place] [address] 08-04-2025 12:25-0500 Body temperature 97.6 [degF] Radha Cary CALENDER MACHINE OPERATOR HELPER-C Work Phone: 9(965)754-873046 [place] [address] 08-04-2025 12:25-0500 Respiratory rate 14 /min Radha Cary CALENDER MACHINE OPERATOR HELPER-C Work Phone: 8(013)790-514046 [place] [address] 08-04-2025 12:20-0500 Diastolic blood pressure 78 mm[Hg] Radha Cary CALENDER MACHINE OPERATOR HELPER-C Work Phone: 0(569)915-379803 [place] [address] 08-04-2025 12:20-0500 Systolic blood pressure 116 mm[Hg] Radha Cary CALENDER MACHINE OPERATOR HELPER-C Work Phone: [facility] 07-21-2025 09:44-0400 Body mass index (BMI) [Ratio] 26.8 kg/m2 Radha Cary CALENDER MACHINE OPERATOR HELPER-C Work Phone: [facility] 07-21-2025 09:44-0400 Body weight 73.05 kg Radha Cary CALENDER MACHINE OPERATOR HELPER-C Work Phone: 3(812)760-436503 [place] [address] 07-21-2025 09:44-0400 Diastolic blood pressure 72 mm[Hg] Radha Cary CALENDER MACHINE OPERATOR HELPER-C Work Phone: 9(388)292-249103 [place] [address] 07-21-2025 09:44-0400 Systolic blood pressure 108 mm[Hg] Radha Cary CALENDER MACHINE OPERATOR HELPER-C Work Phone: 8(090)668-949603 [place] [address] 07-06-2025 09:56-0400 Body height 165.1 cm Radha Cary CALENDER MACHINE OPERATOR HELPER-C Work Phone: 1(980)124-272803 [place] [address] 07-06-2025 09:56-0400 Body mass index (BMI) [Ratio] 25.9 kg/m2 Radha Cary CALENDER MACHINE OPERATOR HELPER-C Work Phone: 9(205)390-164403 [place] [address] 07-06-2025 09:56-0400 Body weight 70.84 kg Radha Cary CALENDER MACHINE OPERATOR HELPER-C Work Phone: 4(376)563-861403 [place] [address] 07-06-2025 09:56-0400 Diastolic blood pressure 73 mm[Hg] Radha Cary CALENDER MACHINE OPERATOR HELPER-C Work Phone: 2(425)683-592103 [place] [address] 07-06-2025 09:56-0400 Systolic blood pressure 112 mm[Hg] Radha Cary CALENDER MACHINE OPERATOR HELPER-C Work Phone: 6(838)285-685903 [place] [address] 06-22-2025 12:57-0400 Body height 165.1 cm Radha Cary CALENDER MACHINE OPERATOR HELPER-C Work Phone: 7(310)772-664103 [place] [address] 06-22-2025 12:57-0400 Body mass index (BMI) [Ratio] 25.2 kg/m2 Radha Cary CALENDER MACHINE OPERATOR HELPER-C Work Phone: 7(140)295-980403 [place] [address] 06-22-2025 12:57-0400 Body weight 68.97 kg Radha Cary CALENDER MACHINE OPERATOR HELPER-C Work Phone: 6(290)566-687546 [place] [address] 06-22-2025 12:57-0400 Diastolic blood pressure 72 mm[Hg] Rdaha Cary CALENDER MACHINE OPERATOR HELPER-C Work Phone: 5(602)219-547203 [place] [address] 06-22-2025 12:57-0400 Systolic blood pressure 107 mm[Hg] Radha Cary CALENDER MACHINE OPERATOR HELPER-C Work Phone: 0(914)331-122503 [place] [address] 06-07-2025 13:30-0400 Body height 165.1 cm Radha Cary CALENDER MACHINE OPERATOR HELPER-C Work Phone: 6(011)407-768603 [place] [address] 06-07-2025 13:27-0400 Body mass index (BMI) [Ratio] 24.5 kg/m2 Radha Cary CALENDER MACHINE OPERATOR HELPER-C Work Phone: 3(795)255-110703 [place] [address] 06-07-2025 13:27-0400 Body weight 66.93 kg Radha Cary CALENDER MACHINE OPERATOR HELPER-C Work Phone: 1(463)666-485003 [place] [address] 06-07-2025 13:27-0400 Diastolic blood pressure 73 mm[Hg] Radha Cary CALENDER MACHINE OPERATOR HELPER-C Work Phone: 9(405)576-521003 [place] [address] 06-07-2025 13:27-0400 Systolic blood pressure 112 mm[Hg] Radha Cary CALENDER MACHINE OPERATOR HELPER-C Work Phone: 9(044)451-920103 [place] [address] 05-20-2025 13:53-0400 Body height 165.1 cm Radha Cary CALENDER MACHINE OPERATOR HELPER-C Work Phone: 9(721)419-389803 [place] [address] 05-20-2025 13:53-0400 Body mass index (BMI) [Ratio] 24.1 kg/m2 Radha Cary CALENDER MACHINE OPERATOR HELPER-C Work Phone: 0(619)538-213603 [place] [address] 05-20-2025 13:53-0400 Body weight 65.85 kg Radha Cary CALENDER MACHINE OPERATOR HELPER-C Work Phone: 6(103)073-457103 [place] [address] 05-20-2025 13:53-0400 Diastolic blood pressure 72 mm[Hg] Radha Cary CALENDER MACHINE OPERATOR HELPER-C Work Phone: 6(653)060-951803 [place] [address] 05-20-2025 13:53-0400 Systolic blood pressure 110 mm[Hg] Radha Cary CALENDER MACHINE OPERATOR HELPER-C Work Phone: [facility] 05-07-2025 18:38-0400 Diastolic blood pressure 55 mm[Hg] Radha Cary CALENDER MACHINE OPERATOR HELPER-C Work Phone: [facility] 05-07-2025 18:38-0400 Heart rate 70 /min Radha Cary CALENDER MACHINE OPERATOR HELPER-C Work Phone: [facility] 05-07-2025 18:38-0400 Systolic blood pressure 106 mm[Hg] Radha Cary CALENDER MACHINE OPERATOR HELPER-C Work Phone: 9(773)729-452346 [place] [address] 05-07-2025 18:29-0400 Body height 165.1 cm Radha Cary CALENDER MACHINE OPERATOR HELPER-C Work Phone: 9(446)727-140346 [place] [address] 05-07-2025 18:29-0400 Body mass index (BMI) [Ratio] 23.4 kg/m2 Radha Cary CALENDER MACHINE OPERATOR HELPER-C Work Phone: 1(447)313-125946 [place] [address] 05-07-2025 18:29-0400 Body weight 64 kg Radha Cary CALENDER MACHINE OPERATOR HELPER-C Work Phone: 7(046)788-207846 [place] [address] 04-23-2025 10:49-0400 Body height 165.1 cm Radha Cary CALENDER MACHINE OPERATOR HELPER-C Work Phone: 7(391)564-501246 [place] [address] 04-23-2025 10:44-0400 Body mass index (BMI) [Ratio] 23 kg/m2 Radha Cary CALENDER MACHINE OPERATOR HELPER-C Work Phone: 6(951)249-801146 [place] [address] 04-23-2025 10:44-0400 Body weight 62.82 kg Radha Cary CALENDER MACHINE OPERATOR HELPER-C Work Phone: 9(584)222-142446 [place] [address] 04-23-2025 10:44-0400 Diastolic blood pressure 73 mm[Hg] Radha Cary CALENDER MACHINE OPERATOR HELPER-C Work Phone: 4(787)110-935246 [place] [address] 04-23-2025 10:44-0400 Systolic blood pressure 108 mm[Hg] Radha Cary CALENDER MACHINE OPERATOR HELPER-C Work Phone: 5(541)490-927746 [place] [address] 03-25-2025 13:34-0400 Body height 165.1 cm Radha Cary CALENDER MACHINE OPERATOR HELPER-C Work Phone: 9(781)994-447003 [place] [address] 03-25-2025 13:34-0400 Body mass index (BMI) [Ratio] 22.4 kg/m2 Radha Cary CALENDER MACHINE OPERATOR HELPER-C Work Phone: 1(265)575-882703 [place] [address] 03-25-2025 13:34-0400 Body weight 61.23 kg Radha Cary CALENDER MACHINE OPERATOR HELPER-C Work Phone: 2(786)627-709903 [place] [address] 03-25-2025 13:34-0400 Diastolic blood pressure 60 mm[Hg] Radha Cary CALENDER MACHINE OPERATOR HELPER-C Work Phone: 1(039)989-375903 [place] [address] 03-25-2025 13:34-0400 Systolic blood pressure 98 mm[Hg] Radha Cary CALENDER MACHINE OPERATOR HELPER-C Work Phone: 1(476)301-024403 [place] [address] 02-24-2025 13:57-0400 Body height 165.1 cm Radha Cary CALENDER MACHINE OPERATOR HELPER-C Work Phone: 3(322)677-485203 [place] [address] 02-24-2025 13:57-0400 Body mass index (BMI) [Ratio] 22.8 kg/m2 Radha Cary CALENDER MACHINE OPERATOR HELPER-C Work Phone: 9(261)609-144603 [place] [address] 02-24-2025 13:57-0400 Body weight 62.14 kg Radha Cary CALENDER MACHINE OPERATOR HELPER-C Work Phone: 1(495)866-195503 [place] [address] 02-24-2025 13:57-0400 Diastolic blood pressure 62 mm[Hg] Radha Cary CALENDER MACHINE OPERATOR HELPER-C Work Phone: 6(930)337-214003 [place] [address] 02-24-2025 13:57-0400 Systolic blood pressure 97 mm[Hg] Radha Cary CALENDER MACHINE OPERATOR HELPER-C Work Phone: 3(215)344-495003 [place] [address] 02-19-2025 14:34-0400 Body mass index (BMI) [Ratio] 22.8 kg/m2 Radha Cary CALENDER MACHINE OPERATOR HELPER-C Work Phone: 5(591)524-910003 [place] [address] 02-19-2025 14:34-0400 Body weight 62.19 kg Radha Cary CALENDER MACHINE OPERATOR HELPER-C Work Phone: [facility] 02-19-2025 14:34-0400 Diastolic blood pressure 80 mm[Hg] Radha Cary CALENDER MACHINE OPERATOR HELPER-C Work Phone: [facility] 02-19-2025 14:34-0400 Systolic blood pressure 120 mm[Hg] Radha Cary CALENDER MACHINE OPERATOR HELPER-C Work Phone: [facility] 02-01-2025 13:03-0400 Body height 165.1 cm Radha Cayr CALENDER MACHINE OPERATOR HELPER-C Work Phone: [facility] 02-01-2025 13:03-0400 Body mass index (BMI) [Ratio] 22.9 kg/m2 Radha Cary CALENDER MACHINE OPERATOR HELPER-C Work Phone: [facility] 02-01-2025 13:03-0400 Body weight 62.59 kg Radha Cary CALENDER MACHINE OPERATOR HELPER-C Work Phone: [facility] 02-01-2025 13:03-0400 Diastolic blood pressure 71 mm[Hg] Radha Cary CALENDER MACHINE OPERATOR HELPER-C Work Phone: [facility] 02-01-2025 13:03-0400 Systolic blood pressure 109 mm[Hg] Radha Cary CALENDER MACHINE OPERATOR HELPER-C Work Phone: [facility] 01-31-2025 18:31-0400 Body height 165.1 cm Forrest Mohr MD Work Phone: [facility] 01-31-2025 18:31-0400 Body mass index (BMI) [Ratio] 23.3 kg/m2 Forrest Mohr MD Work Phone: [facility] 01-31-2025 18:31-0400 Body temperature 97.5 [degF] Forrest Mohr MD Work Phone: [facility] 01-31-2025 18:31-0400 Body weight 63.5 kg Forrest Mohr MD Work Phone: [facility] 01-31-2025 18:31-0400 Diastolic blood pressure 65 mm[Hg] Forrest Mohr MD Work Phone: [facility] 01-31-2025 18:31-0400 Heart rate 89 /min Forrest Mohr MD Work Phone: [facility] 01-31-2025 18:31-0400 Respiratory rate 18 /min Forrest Mohr MD Work Phone: [facility] 01-31-2025 18:31-0400 SaO2% (BldA) [Mass fraction] 96 % Forrest Mohr MD Work Phone: [facility] 01-31-2025 18:31-0400 Systolic blood pressure 118 mm[Hg] Forrest Mohr MD Work Phone: [facility] 01-05-2025 08:45-0400 Body mass index (BMI) [Ratio] 22.8 kg/m2 Radha Cary CALENDER MACHINE OPERATOR HELPER-C Work Phone: [facility] 01-05-2025 08:45-0400 Body weight 62.19 kg Radha Cary CALENDER MACHINE OPERATOR HELPER-C Work Phone: [facility] 01-05-2025 08:45-0400 Diastolic blood pressure 71 mm[Hg] Radha Cary CALENDER MACHINE OPERATOR HELPER-C Work Phone: [facility] 01-05-2025 08:45-0400 Systolic blood pressure 103 mm[Hg] Radha Cary CALENDER MACHINE OPERATOR HELPER-C Work Phone: [facility] 10-30-2024 10:57-0500 Body height 165.1 cm Forrest Mohr MD Work Phone: [facility] 10-30-2024 10:57-0500 Body mass index (BMI) [Ratio] 23.3 kg/m2 Forrest Mohr MD Work Phone: [facility] 10-30-2024 10:57-0500 Body temperature 98.01 [degF] Forrest Mohr MD Work Phone: [facility] 10-30-2024 10:57-0500 Body weight 63.5 kg Forrest Mohr MD Work Phone: [facility] 10-30-2024 10:57-0500 Diastolic blood pressure 79 mm[Hg] Forrest Mohr MD Work Phone: [facility] 10-30-2024 10:57-0500 Heart rate 116 /min Forrest Mohr MD Work Phone: [facility] 10-30-2024 10:57-0500 Respiratory rate 16 /min Forrest Mohr MD Work Phone: [facility] 10-30-2024 10:57-0500 SaO2% (BldA) [Mass fraction] 98 % Forrest Mohr MD Work Phone: [facility] 10-30-2024 10:57-0500 Systolic blood pressure 116 mm[Hg] Forrest Mohr MD Work Phone: [facility] 07-06-2024 13:52-0400 Body height 165.1 cm Jose Delgado MD Work Phone: [facility] 07-06-2024 13:52-0400 Body mass index (BMI) [Ratio] 23.66 kg/m2 Jose Delgado MD Work Phone: [facility] 07-06-2024 13:52-0400 Body weight 64.5 kg Jose Delgado MD Work Phone: [facility] 07-06-2024 13:52-0400 Diastolic blood pressure 62 mm[Hg] Jose Delgado MD Work Phone: [facility] 07-06-2024 13:52-0400 Systolic blood pressure 104 mm[Hg] Jose Delgado MD Work Phone: [facility] 03-05-2024 08:30-0400 Diastolic blood pressure 70 mm[Hg] Forrest Mohr MD Work Phone: [facility] 03-05-2024 08:30-0400 Heart rate 89 /min Forrest Mohr MD Work Phone: [facility] 03-05-2024 08:30-0400 Respiratory rate 16 /min Forrest Mohr MD Work Phone: [facility] 03-05-2024 08:30-0400 SaO2% (BldA) [Mass fraction] 98 % Forrest Mohr MD Work Phone: [facility] 03-05-2024 08:30-0400 Systolic blood pressure 107 mm[Hg] Forrest Mohr MD Work Phone: [facility] 03-05-2024 07:45-0400 Body temperature 98.01 [degF] Forrest Mohr MD Work Phone: [facility] 03-05-2024 07:10-0400 Body height 165.1 cm Forrest Mohr MD Work Phone: [facility] 03-05-2024 07:10-0400 Body mass index (BMI) [Ratio] 23.53 kg/m2 Forrest Mohr MD Work Phone: [facility] 03-05-2024 07:10-0400 Body weight 64.14 kg Forrest Mohr MD Work Phone: [facility] 01-30-2024 15:41-0400 Body height 165.1 cm Forrest Mohr MD Work Phone: [facility] 01-30-2024 15:41-0400 Body mass index (BMI) [Ratio] 23.3 kg/m2 Forrest Mohr MD Work Phone: [facility] 01-30-2024 15:41-0400 Body weight 63.5 kg Forrest Mohr MD Work Phone: [facility] 01-30-2024 15:41-0400 Diastolic blood pressure 66 mm[Hg] Forrest Mohr MD Work Phone: [facility] 01-30-2024 15:41-0400 Heart rate 77 /min Forrest Mohr MD Work Phone: [facility] 01-30-2024 15:41-0400 SaO2% (BldA) [Mass fraction] 98 % Forrest Mohr MD Work Phone: [facility] 01-30-2024 15:41-0400 Systolic blood pressure 102 mm[Hg] Forrest Mohr MD Work Phone: [facility] 01-30-2024 13:00-0400 Diastolic blood pressure 69 mm[Hg] Shae Browningersen DO Work Phone: [facility] 01-30-2024 13:00-0400 Heart rate 70 /min Shae Browningersen DO Work Phone: [facility] 01-30-2024 13:00-0400 Respiratory rate 16 /min Shae Browningersen DO Work Phone: [facility] 01-30-2024 13:00-0400 SaO2% (BldA) [Mass fraction] 100 % Shae Pastor DO Work Phone: [facility] 01-30-2024 13:00-0400 Systolic blood pressure 113 mm[Hg] Shae Browningersen DO Work Phone: [facility] 01-30-2024 10:57-0400 Body height 165.1 cm Shae Browningersen DO Work Phone: [facility] 01-30-2024 10:57-0400 Body mass index (BMI) [Ratio] 23.3 kg/m2 Shae Pastor DO Work Phone: [facility] 01-30-2024 10:57-0400 Body temperature 98.1 [degF] Shae Pastor DO Work Phone: [facility] 01-30-2024 10:57-0400 Body weight 63.5 kg Shae Pastor DO Work Phone: [facility] 10-29-2023 12:56-0500 Body height 165.1 cm Radha Cary SERVICES ACCOUNT MANAGER-REMEDIATION CONSULTANT Work Phone: [facility] 10-29-2023 12:56-0500 Body mass index (BMI) [Ratio] 22.86 kg/m2 Radha Cary SERVICES ACCOUNT MANAGER-REMEDIATION CONSULTANT Work Phone: 8(549)642-470217 [address] 10-29-2023 12:56-0500 Body weight 62.31 kg Radha Cary SERVICES ACCOUNT MANAGER-REMEDIATION CONSULTANT Work Phone: 8(170)557-340539 [place] [address] 10-29-2023 12:56-0500 Diastolic blood pressure 60 mm[Hg] Radha Cary SERVICES ACCOUNT MANAGER-REMEDIATION CONSULTANT Work Phone: [facility] 10-29-2023 12:56-0500 Heart rate 72 /min Radha Cary SERVICES ACCOUNT MANAGER-REMEDIATION CONSULTANT Work Phone: [facility] 10-29-2023 12:56-0500 Systolic blood pressure 104 mm[Hg] Radha Cary SERVICES ACCOUNT MANAGER-REMEDIATION CONSULTANT Work Phone: 6(264)820-631539 [place] [address] 12-27-2022 23:39-0400 Diastolic blood pressure 80 mm[Hg] Radha Cary [facility] 12-27-2022 23:39-0400 Heart rate 87 /min Radha Cary [facility] 12-27-2022 23:39-0400 Respiratory rate 18 /min Radha Cary [facility] 12-27-2022 23:39-0400 SaO2% (BldA) [Mass fraction] 100 % Radha Cary [facility] 12-27-2022 23:39-0400 Systolic blood pressure 112 mm[Hg] Radha Cary [facility] 12-27-2022 18:01-0400 Body temperature 98.06 [degF] Radha Cary [facility] 12-27-2022 18:01-0400 Body weight 60 kg Radhacherie Cary [facility] 11-05-2022 15:34-0500 Body height 165.1 cm Radha Cary Work Phone: [place] [address] [address] Work Phone: 11-05-2022 15:34-0500 Body mass index (BMI) [Ratio] 22.82 kg/m2 Radha Cary Work Phone: [place] [address] [address] Work Phone: 11-05-2022 15:34-0500 Body surface area Derived from formula 1.68 m2 Radha Cary Work Phone: [place] [address] [address] Work Phone: 11-05-2022 15:34-0500 Body weight 62.2 kg Radha Cary Work Phone: [place] [address] [address] Work Phone: 11-05-2022 15:34-0500 Diastolic blood pressure 64 mm[Hg] Radha Cary Work Phone: [place] [address] [address] Work Phone: 11-05-2022 15:34-0500 Systolic blood pressure 102 mm[Hg] Radha Cary Work Phone: [place] [address] [address] Work Phone: 10-23-2022 13:40-0500 Body height 165.1 cm Radha Cary Work Phone: [place] [address] [address] Work Phone: 10-23-2022 13:40-0500 Body mass index (BMI) [Ratio] 22.6 kg/m2 Radha Cary Work Phone: [place] [address] [address] Work Phone: 10-23-2022 13:40-0500 Body surface area Derived from formula 1.68 m2 Radha Cary Work Phone: [place] [address] [address] Work Phone: 10-23-2022 13:40-0500 Body weight 61.6 kg Radha Cary Work Phone: [place] [address] [address] Work Phone: 10-23-2022 13:40-0500 Diastolic blood pressure 62 mm[Hg] Radha Cary Work Phone: [place] [address] [address] Work Phone: 10-23-2022 13:40-0500 Systolic blood pressure 102 mm[Hg] Radha Cary Work Phone: [address] Work Phone: 10-22-2022 00:05-0500 Diastolic blood pressure 59 mm[Hg] Radha Cary [facility] 10-22-2022 00:05-0500 Heart rate 85 /min Radha Cary [facility] 10-22-2022 00:05-0500 Respiratory rate 18 /min Radha Cary [facility] 10-22-2022 00:05-0500 SaO2% (BldA) [Mass fraction] 99 % Radha Cary [facility] 10-22-2022 00:05-0500 Systolic blood pressure 110 mm[Hg] Radha Cary [facility] 10-21-2022 20:25-0500 Body height 165.1 cm Radha Cary [facility] 10-21-2022 20:25-0500 Body temperature 98.6 [degF] Radha Cary [facility] 10-21-2022 20:25-0500 Body weight 61 kg Radha Cary [facility] 10-17-2022 14:44-0500 Body height 165.1 cm Radha Cary Work Phone: [facility] [place] [address] [address] Work Phone: 10-17-2022 14:44-0500 Body mass index (BMI) [Ratio] 22.63 kg/m2 Radha Cary Work Phone: [place] [address] [address] Work Phone: 10-17-2022 14:44-0500 Body surface area Derived from formula 1.68 m2 Radha Cary Work Phone: [place] [address] [address] Work Phone: 10-17-2022 14:44-0500 Body weight 61.69 kg Radha Cary Work Phone: [place] [address] [address] Work Phone: 10-17-2022 14:44-0500 Diastolic blood pressure 60 mm[Hg] Radha Cary Work Phone: [place] [address] [address] Work Phone: 10-17-2022 14:44-0500 Heart rate 84 /min Radha Cary Work Phone: [place] [address] [address] Work Phone: 10-17-2022 14:44-0500 Systolic blood pressure 96 mm[Hg] Radha Cary Work Phone: [place] [address] [address] Work Phone: 08-23-2022 15:41-0500 Body height 165.1 cm Radha Cary [facility] 08-23-2022 15:41-0500 Body temperature 97.7 [degF] Radha Cary [facility] 08-23-2022 15:41-0500 Body weight 61.3 kg Radha Cary [facility] 08-23-2022 15:41-0500 Diastolic blood pressure 72 mm[Hg] Radha Cary [facility] 08-23-2022 15:41-0500 Heart rate 90 /min Radha Cary [facility] 08-23-2022 15:41-0500 Respiratory rate 16 /min Radha Cary [facility] 08-23-2022 15:41-0500 SaO2% (BldA) [Mass fraction] 97 % Radha Cary [facility] 08-23-2022 15:41-0500 Systolic blood pressure 118 mm[Hg] Radhacherie Cary [facility] 08-13-2022 14:06-0500 Body height 165.1 cm Radha Cary Work Phone: [place] [address] [address] Work Phone: 08-13-2022 14:06-0500 Body mass index (BMI) [Ratio] 22.49 kg/m2 Radha Cary Work Phone: [place] [address] [address] Work Phone: 08-13-2022 14:06-0500 Body surface area Derived from formula 1.67 m2 Radha Cary Work Phone: [place] [address] [address] Work Phone: 08-13-2022 14:06-0500 Body weight 61.3 kg Radha Cary Work Phone: [place] [address] [address] Work Phone: 08-13-2022 14:06-0500 Diastolic blood pressure 62 mm[Hg] Radha Cary Work Phone: [place] [address] [address] Work Phone: 08-13-2022 14:06-0500 Systolic blood pressure 104 mm[Hg] Radha Cary Work Phone: [place] [address] [address] Work Phone: 07-11-2022 15:18-0400 Body height 165.1 cm Radha Cary Work Phone: [place] [address] [address] Work Phone: 07-11-2022 15:18-0400 Body mass index (BMI) [Ratio] 21.06 kg/m2 Radha Shirley Cary Work Phone: [employer] Work Phone: 07-11-2022 15:18-0400 Body surface area Derived from formula 1.63 m2 Radha Shirley Cary Work Phone: [employer] Work Phone: 07-11-2022 15:18-0400 Body weight 57.4 kg Radha Cary Work Phone: [employer] Work Phone: 07-11-2022 15:18-0400 Diastolic blood pressure 60 mm[Hg] Radha Shirley Cary Work Phone: [employer] Work Phone: 07-11-2022 15:18-0400 Systolic blood pressure 100 mm[Hg] Radha Shirley Cary Work Phone: [employer] Work Phone: 07-06-2022 01:48-0400 Diastolic blood pressure 77 mm[Hg] Radha Cary [facility] 07-06-2022 01:48-0400 Heart rate 77 /min Radha Cary [facility] 07-06-2022 01:48-0400 Respiratory rate 16 /min Radha Cary [facility] 07-06-2022 01:48-0400 SaO2% (BldA) [Mass fraction] 96 % Radha Cary [facility] 07-06-2022 01:48-0400 Systolic blood pressure 111 mm[Hg] Radha Cary [facility] 07-05-2022 23:35-0400 Body height 165.1 cm Radha Cary [facility] 07-05-2022 23:35-0400 Body temperature 97.34 [degF] Radha Cary [facility] 07-05-2022 23:35-0400 Body weight 55 kg Radha Cary [facility] 06-27-2022 14:19-0400 Body height 165.1 cm Radha Cary Work Phone: [address] Work Phone: 06-27-2022 14:19-0400 Body mass index (BMI) [Ratio] 20.7 kg/m2 Radha Cary Work Phone: [address] Work Phone: 06-27-2022 14:19-0400 Body surface area Derived from formula 1.62 m2 Radha Cary Work Phone: [address] Work Phone: 06-27-2022 14:19-0400 Body weight 56.42 kg Radha Cary Work Phone: [address] Work Phone: 06-27-2022 14:19-0400 Diastolic blood pressure 60 mm[Hg] Radha Cary Work Phone: [address] Work Phone: 06-27-2022 14:19-0400 Systolic blood pressure 100 mm[Hg] Radha Cary Work Phone: [address] Work Phone: 04-04-2022 14:56-0400 Body height 165.1 cm Radha Cary Work Phone: [facility] 205 DO Work Phone: 04-04-2022 14:56-0400 Body mass index (BMI) [Ratio] 19.56 kg/m2 Radha Cary Work Phone: [facility] 205 DO Work Phone: 04-04-2022 14:56-0400 Body surface area Derived from formula 1.58 m2 Radha Cary Work Phone: [place] [address] DO Work Phone: 04-04-2022 14:56-0400 Body weight 53.33 kg Radha Cary Work Phone: [facility] 205 DO Work Phone: 04-04-2022 14:56-0400 Diastolic blood pressure 58 mm[Hg] Radha Cary Work Phone: [place] [address] DO Work Phone: 04-04-2022 14:56-0400 Heart rate 85 /min Radha Cary Work Phone: [facility] 205 DO Work Phone: 04-04-2022 14:56-0400 SaO2% (BldA) [Mass fraction] 99 % Radha Cary Work Phone: [place] [address] DO Work Phone: 04-04-2022 14:56-0400 Systolic blood pressure 96 mm[Hg] Radha Cary Work Phone: [place] [address] DO Work Phone: 03-07-2022 15:00-0400 Body height 165.1 cm Radha Cary Work Phone: [facility] Work Phone: 03-07-2022 15:00-0400 Body mass index (BMI) [Ratio] 19.4 kg/m2 Radha Cary Work Phone: [facility] Work Phone: 03-07-2022 15:00-0400 Body surface area Derived from formula 1.57 m2 Radha Cayr Work Phone: [facility] Work Phone: 03-07-2022 15:00-0400 Body weight 52.87 kg Radha Cary Work Phone: [facility] Work Phone: 03-07-2022 15:00-0400 Diastolic blood pressure 64 mm[Hg] Radha Cary Work Phone: [facility] Work Phone: 03-07-2022 15:00-0400 Heart rate 94 /min Radha Cary Work Phone: [facility] Work Phone: 03-07-2022 15:00-0400 SaO2% (BldA) [Mass fraction] 98 % Radha Cary Work Phone: [facility] Work Phone: 03-07-2022 15:00-0400 Systolic blood pressure 90 mm[Hg] Radha Cary Work Phone: [facility] Work Phone: 01-19-2022 13:08-0400 Body height 165.1 cm Valencia L Oberhauser Work Phone: [address] Work Phone: 01-19-2022 13:08-0400 Body mass index (BMI) [Ratio] 18.64 kg/m2 Valencia L Oberhauser Work Phone: [address] Work Phone: 01-19-2022 13:08-0400 Body surface area Derived from formula 1.55 m2 Valencia L Oberhauser Work Phone: [place] [address] [address] Work Phone: 01-19-2022 13:08-0400 Body weight 50.8 kg Valencia L Oberhauser Work Phone: [place] [address] [address] Work Phone: 01-19-2022 13:08-0400 Diastolic blood pressure 62 mm[Hg] Valencia L Oberhauser Work Phone: [place] [address] [address] Work Phone: 01-19-2022 13:08-0400 Systolic blood pressure 100 mm[Hg] Valencia L Oberhauser Work Phone: [place] [address] [address] Work Phone: 01-16-2022 14:11-0400 Body height 165.1 cm Valencia L Oberhauser Work Phone: [place] [address] [address] Work Phone: 01-16-2022 14:11-0400 Body mass index (BMI) [Ratio] 18.56 kg/m2 Valencia L Oberhauser Work Phone: [place] [address] [address] Work Phone: 01-16-2022 14:11-0400 Body surface area Derived from formula 1.54 m2 Valencia L Oberhauser Work Phone: [place] [address] [address] Work Phone: 01-16-2022 14:11-0400 Body weight 50.6 kg Valencia L Oberhauser Work Phone: [place] [address] [address] Work Phone: 01-16-2022 14:11-0400 Diastolic blood pressure 60 mm[Hg] Valencia L Oberhauser Work Phone: [place] [address] [address] Work Phone: 01-16-2022 14:11-0400 Systolic blood pressure 100 mm[Hg] Valencia L Oberhauser Work Phone: Tatiana Baca [place] Work Phone: 10-08-2019 17:28-0500 BMI (Body Mass Index) 25.72 kg/m2 Keara Simpson [address] Work Phone: 10-08-2019 17:28-0500 Body weight 70.1 kg Keara cabrera [address] Work Phone: 10-08-2019 17:28-0500 BP Diastolic 70 mm[Hg] Keara cabrera [address] Work Phone: 10-08-2019 17:28-0500 BP Systolic 122 mm[Hg] Keara cabrera [address] Work Phone: 10-08-2019 17:28-0500 BSA (Body Surface Area) 1.77 m2 Keara Baca [place] Work Phone: 10-08-2019 17:28-0500 Height 165.1 cm Keara cabrera [address] Work Phone: 09-21-2019 16:38-0500 BMI (Body Mass Index) 24.84 kg/m2 Keara Baca [place] Work Phone: 09-21-2019 16:38-0500 Body weight 67.7 kg Keara cabrera [address] Work Phone: 09-21-2019 16:38-0500 BP Diastolic 68 mm[Hg] Keara cabrera [address] Work Phone: 09-21-2019 16:38-0500 BP Systolic 120 mm[Hg] Keara cabrera [address] Work Phone: 09-21-2019 16:38-0500 BSA (Body Surface Area) 1.75 m2 Keara ZabalaRosana Baca [place] Work Phone: 09-21-2019 16:38-0500 Height 165.1 cm Keara Mckenzie [facility] [address] Work Phone: 09-21-2019 16:24-0500 BMI (Body Mass Index) 19.77 kg/m2 Keara Mckenzie [facility] [address] Work Phone: 09-21-2019 16:24-0500 Body weight 53.9 kg Keara Mckenzie [facility] [address] Work Phone: 09-21-2019 16:24-0500 BSA (Body Surface Area) 1.59 m2 Keara Mckenzie [facility] [address] Work Phone: 09-21-2019 16:24-0500 Height 165.1 cm Keara Mckenzie [facility] [address] Work Phone: 04-16-2019 16:21-0400 BMI (Body Mass Index) 20.07 kg/m2 Keara Mckenzie [facility] [address] Work Phone: 04-16-2019 16:21-0400 Body weight 54.7 kg Keara Mckenzie [facility] [address] Work Phone: 04-16-2019 16:21-0400 BP Diastolic 56 mm[Hg] Keara Mckenzie [facility] [address] Work Phone: 04-16-2019 16:21-0400 BP Systolic 98 mm[Hg] Keara Mckenzie [facility] [address] Work Phone: 04-16-2019 16:21-0400 BSA (Body Surface Area) 1.6 m2 Keara Mckenzie [facility] [address] Work Phone: 04-16-2019 16:21-0400 Height 165.1 cm Keara Mckenzie [facility] [address] Work Phone: Encounters Encounter Date Encounter Type Care Provider Facility Start: 08-11-2025 ambulatory Meena Balbuena lity:[facility] Start: 08-09-2025 End: 08-09-2025 ambulatory Mariajose Ayala Facility:[facility] [place] Start: 08-05-2025 ambulatory Meena Us Faci lity:[facility] Start: 08-05-2025 End: 08-05-2025 ambulatory Meena Us Facility:[facility] [place] Start: 08-04-2025 ambulatory Meena Balbuena lity:[facility] [place] Start: 08-04-2025 End: 08-04-2025 ambulatory Meena Us Facility:[facility] Start: 07-21-2025 End: 07-21-2025 Patient encounter procedure Aisha Vitale CALENDER MACHINE OPERATOR HELPER-C -[facility] Work Phone: Start: 07-21-2025 End: 07-21-2025 ambulatory Aisha Vitale NP Facility:[facility] [place] Start: 07-06-2025 End: 07-06-[address] Colleen Villalobos DO -[facility] Work Phone: Start: 07-06-2025 End: 07-06-2025 ambulatory Radha Cary CALENDER MACHINE OPERATOR HELPER-C Work Phone: [facility] Start: 06-22-2025 End: 06-22-2025 Patient encounter procedure Mariajose Ayala CNM -[facility] Work Phone: Start: 06-22-2025 End: 06-22-2025 ambulatory Radha Cary CALENDER MACHINE OPERATOR HELPER-C Work Phone: -[facility] Start: 06-14-2025 End: 06-14-2025 ambulatory RADHA CARY [facility] Start: 06-07-2025 End: 06-07-2025 ambulatory Radha Cary CALENDER MACHINE OPERATOR HELPER-C Work Phone: -[facility] Start: 06-07-2025 End: 06-07-2025 Patient encounter procedure Aisha Vitale CALENDER MACHINE OPERATOR HELPER-C -[facility] Work Phone: Start: 06-07-2025 End: 06-07-2025 ambulatory Meena Us Facility:[facility] Start: 05-20-2025 End: 05-20-[address] Meena Us MD -[facility] Work Phone: Start: 05-20-2025 End: 05-20-2025 ambulatory Radha Cary CALENDER MACHINE OPERATOR HELPER-C Work Phone: -[facility] Start: 05-07-2025 ambulatory Mariajose Ayala Facility :[facility] [place] Start: 05-07-2025 Non-patient / Non-visit Mariajose Trinidad nd CN -[facility] Start: 05-07-2025 End: 05-07-2025 ambulatory Radha Cary CALENDER MACHINE OPERATOR HELPER-C Work Phone: -[facility] Start: 05-07-2025 End: 05-07-2025 Patient encounter procedure Mariajose Ayala [facility] -[facility] Work Phone: Start: 04-23-2025 End: 04-23-2025 Patient encounter procedure Mariajose Ayala [facility] -[facility] Work Phone: Start: 04-23-2025 End: 04-23-2025 ambulatory Radha Cary CALENDER MACHINE OPERATOR HELPER-C Work Phone: -[facility] Start: 04-08-2025 End: 04-08-2025 ambulatory COLLEEN ROSALES [facility] Start: 03-25-2025 End: 03-25-2025 Patient encounter procedure Aisha HENRYC -[facility] Work Phone: Start: 03-25-2025 End: 03-25-2025 ambulatory Radha Cary CALENDER MACHINE OPERATOR HELPER-C Work Phone: [facility] Work Phone: Start: 02-24-2025 End: 02-24-[address] Colleen Villalobos DO -[facility] Work Phone: Start: 02-24-2025 End: 02-24-2025 ambulatory Radha Cary CALENDER MACHINE OPERATOR HELPER-C Work Phone: [facility] Work Phone: Start: 02-24-2025 End: 02-24-2025 ambulatory Colleen Villalobos Facility:[facility] Start: 02-19-2025 End: 02-19-[address] Colleen Villalobos DO -[facility] Work Phone: Start: 02-19-2025 End: 02-19-2025 ambulatory Colleen Villalobos Facility:[facility] [place] Start: 02-05-2025 ambulatory Mariajose Jamie Facility :[facility] Start: 02-01-2025 End: 02-01-2025 ambulatory Radha Cary CALENDER MACHINE OPERATOR HELPER-C Work Phone: [facility] Work Phone: Start: 02-01-2025 End: 02-01-2025 Patient encounter procedure Mariajose Ayala CNM -Laboratory, Specimen Work Phone: Start: 02-01-2025 End: 02-01-2025 Patient encounter procedure Mariajose Ayala CNM -[facility] Work Phone: Start: 02-01-2025 End: 02-01-2025 ambulatory Radha Cary Facility:[facility] [place] Start: 02-01-2025 End: 02-01-2025 ambulatory Mariajose Ayala Facility:[facility] Start: 01-31-2025 End: 01-31-2025 Emergency department patient visit FORREST MOHR [facility] Emergency Medicine Comment on above: Morning sickness ( S-HCC) (Primary Dx); Urinary tract infection without hematuria, site unspecified Start: 01-28-2025 End: 01-28-2025 Patient encounter procedure Mariajose Ayala CNM -[facility] Work Phone: Start: 01-28-2025 End: 01-28-2025 ambulatory Mariajose Ayala Facility:[facility] Start: 01-22-2025 Non-patient / Non-visit Tamar magaña RN -[facility] Work Phone: Start: 01-22-2025 ambulatory Tamar Chan Facility :[facility] Start: 01-13-2025 End: 01-13-2025 ambulatory [facility] Ambulatory Start: 01-05-2025 End: 01-05-[address] Meena Us MD -[facility] Work Phone: Start: 01-05-2025 End: 01-05-2025 ambulatory Meena Us Facility:[facility] Start: 10-30-2024 End: 10-30-2024 Emergency department patient visit FORREST MOHR [facility] Emergency Medicine Comment on above: Vaginal bleeding (Pr imary Dx) Start: 07-06-2024 End: 07-06-2024 Office outpatient visit 15 minutes Jose Delgado MD Work Phone: [facility] Office Building Comment on above: Amenorrhea (Primary Dx); test positive ([facility]) Start: 07-06-2024 End: 07-06-2024 ambulatory JOSE Johnson [facility] Ambulatory Start: 06-30-2024 End: 07-07-2024 Telephone encounter Ana Callaway APRN.CNM Work Phone: OB/Gynecology Comment on above: 07/07 BALTA burroughs Start: 05-02-2024 End: 05-02-2024 Emergency department patient visit FORREST Mitchell [facility] Start: 03-05-2024 End: 03-05-2024 Subsequent hospital visit by physician Forrest Mohr MD Work Phone: [facility] Comment on above: Colitis Start: 03-05-2024 End: 03-05-2024 ambulatory FORREST M [facility] Start: 01-30-2024 End: 01-30-2024 Office outpatient new 45 minutes Forrest Mohr MD Work Phone: [facility] Internal Medicine Comment on above: Colitis (Primary Dx) Start: 01-30-2024 End: 01-30-2024 Emergency department patient visit Shae Pastor DO Work Phone: [facility] Emergency Medicine Comment on above: Colitis (Primary Dx) ; Rectal bleeding; Abdominal pain, generalized; Kidney stone Start: 10-29-2023 End: 10-29-2023 Office outpatient visit 15 minutes Radha Cary SERVICES ACCOUNT MANAGER-REMEDIATION CONSULTANT Work Phone: [facility] Comment on above: Generalized anxiety disorder (Primary Dx); Persistent depressive disorder; BMI 22.0-22.9, adult Start: 02-27-2023 ambulatory Radha Cary Facility:[id number] Start: 01-23-2023 End: 01-23-2023 Office outpatient visit 15 minutes Radha Cary SERVICES ACCOUNT MANAGER-REMEDIATION CONSULTANT Work Phone: [facility] Comment on above: Generalized anxiety disorder (Primary Dx); Current severe episode of major depressive disorder without psychotic features without prior episode ([facility]); BMI 22.0-22.9, adult Start: 12-27-2022 End: 12-27-2022 Emergency department patient visit Taqueria Frank [facility] Emergency 14 Start: 12-27-2022 Patient encounter status Radha Cary [facility] Start: 11-06-2022 End: 11-06-2022 Emergency department patient visit Stephanie Ferraricharli [facility] Emergency 13 Start: 11-05-2022 ambulatory Radha Cary Facility:[id number] Start: 11-05-2022 Office outpatient vi sit 15 minutes Radha Cary Work Phone: [employer] Work Phone: Start: 10-30-2022 ambulatory Radha Cary Facility:[id number] Start: 10-23-2022 Office outpatient vi sit 15 minutes Radha Cary Work Phone: [employer] Work Phone: Start: 10-23-2022 Patient encounter procedure Jose Delgado [facility] Start: 10-23-[address] Jose Delgado Facility:[id number] Start: 10-21-2022 End: 10-22-2022 Emergency department patient visit Emily Claros [facility] Emergency 03 Start: 10-20-2022 AUDIT Radha Cary Work Phone: [facility] [employer] Work Phone: Start: 10-19-2022 End: 10-19-2022 Emergency department patient visit Stephanie Villa Facility:[id number] Start: 10-18-2022 End: 10-18-2022 ambulatory [facility] Work Phone: Start: 10-18-2022 End: 10-18-2022 Patient encounter procedure [facility]-Laboratory Start: 10-17-2022 ambulatory Radha Cary Facility:[id number] Start: 10-10-2022 ambulatory Radha Cary Facility:[id number] Start: 08-23-2022 End: 08-23-2022 Emergency department patient visit Emily Claros [facility] Emergency 09 Start: 08-13-2022 Office outpatient vi sit 15 minutes Radha Cary Work Phone: [facility] [employer] Work Phone: Start: 08-13-[address] Jose whitehead [facility] Facility:[id number] Start: 08-06-2022 Rx Renewal Radha Cary Work Phone: [facility] Work Phone: Start: 07-11-2022 Office outpatient vi sit 15 minutes Radha Cary Work Phone: [facility] [employer] Work Phone: Start: 07-11-2022 ambulatory Radha Cary Facility:[id number] Start: 07-05-2022 End: 07-06-2022 Emergency department patient visit William Cerda [facility] Emergency 03 Start: 07-05-2022 Chart Update Radha Cary Work Phone: [facility] [facility] Work Phone: Start: 07-04-2022 ambulatory REMEDIATION CONSULTANT RADHA CARY Fac ility:[id number] Start: 06-28-2022 Chart Update Radha Cary Work Phone: [address] Work Phone: Start: 06-27-2022 Office outpatient vi sit 15 minutes Radha Cary Work Phone: [address] Work Phone: Start: 06-27-2022 ambulatory Radha [place] Facility:[id number] Start: 05-03-2022 AUDIT Keara Mckenzie Work Phone: [facility] 205 DO Work Phone: Start: 04-04-2022 Office outpatient vi sit 15 minutes Radha Cary Work Phone: [facility] 205 DO Work Phone: Start: 04-04-2022 Patient encounter procedure Radha Cary Work Phone: [facility] 205 DO Work Phone: Start: 04-04-2022 ambulatory Radha [place] Facility:[id number] Start: 03-07-2022 Office outpatient ne w 45 minutes Radha Cary Work Phone: [facility] Work Phone: Start: 01-23-2022 Chart Update Valencia Lin user Work Phone: [address] Work Phone: Start: 01-22-2022 AUDIT Valencia Charlesertaylor user Work Phone: [place] [address] [address] Work Phone: Start: 01-19-2022 Office outpatient vi sit 25 minutes Valencia Khanna Work Phone: [place] [address] [address] Work Phone: Start: 01-16-2022 Patient encounter procedure Valencia Rodriguezer Work Phone: [address] Work Phone: Start: 01-08-2020 [facility] [address] Work Phone: Start: 11-19-2019 [facility] [address] Work Phone: Start: 11-12-2019 Patient encounter procedure Keara Mckenzie [facility] [address] Work Phone: Start: 11-05-2019 Patient encounter procedure Keara Mckenzie [facility] [address] Work Phone: Start: 10-29-2019 Patient encounter procedure Keara Mckenzie [facility] [address] Work Phone: Start: 10-22-2019 Patient encounter procedure Keara Mckenzie [place] [address] [address] Work Phone: Start: 10-08-2019 Patient encounter procedure Keara Mckenzie [facility] [address] Work Phone: Start: 09-21-2019 Patient encounter procedure Keara Mckenzie [facility] [address] Work Phone: Menarche Valencia Surinder Jennifer car Work Phone: [place] [address] [address] Work Phone: Comment on above: AGE 11; [...] 02-24-2025 Hepatitis C antibody measurement Radha Cary CALENDER MACHINE OPERATOR HELPER-C Work Phone: Comment on above: Reactive: Presumptiv e evidence of antibodies to HCV. Follow CDC recommendations for supplemental testing.Non-Reactive: Antibodies to HCV were not detected; does not exclude the possibility of exposure to HCVReactive Results are presumptive evidence of antibodies to HCV. Follow CDC recommendations for supplemental testing.Order confirmation testing: HCV Quant by PCR testing - HCVPCR lc#[id number] Non Reactive: < 0.8 Equivocal: >/= 0.8 to < 1.0 Reactive: >/= 1.0The [facility] requires that a reactive/equivocal HCV antibody result [...] based cervica l cytology screening Radha Cary CALENDER MACHINE OPERATOR HELPER-C Work Phone: Comment on above: NEGATIVE FOR INTRAEP ITHELIAL LESION OR MALIGNANCY. This liquid based Th inPrep(R) pap test was screened withthe use of an image guided system. The HPV DNA reflex c riteria were not met with this specimenresult therefore, no HPV testing was performed.Performed at: [address] [id number] Director: Liv Meier MD, Phone: [phone] Start: 02-01-2025 Urine culture Radha Walltodd zuniga [...] 01-28-2025 Transvaginal obstetr ic ultrasonography Radha Cary CALENDER MACHINE OPERATOR HELPER-C Work Phone: Start: 10-30-2024 Urine test visual [...] on above: Performed By: #### T +S ####[place] [address] Start: 10-08-2019 Culture bacterial quanttative colony count urine Keara Jonah Start: 09-21-2019 Glucose Tolerance, 3hr PREG Keara Lipscomb Tonsillectomy Keara Lipscomb Plan of Treatment Date Care Activity Detail Author Start: 2049 Zoster Vaccines (1 of 2) Zoster Vaccines (1 of 2) [facility] Start: 02-02-2028 Screening for malignant neoplasm of cervix [facility] Start: 08-09-2025 End: 08-09-2025 Patient encounter procedure Anxiety and depression -[facility] Work Phone: Start: 08-05-2025 Patient encounter procedure Registered Clinical -Laboratory Specimen Work Phone: Start: 08-05-2025 Beta-hemolytic Streptococcus culture Group B Streptococcus Culture [facility] Start: 08-05-2025 End: 08-05-2025 Patient encounter procedure Anxiety and depression -[facility] Work Phone: Start: 08-04-2025 Urine culture Urine Culture [facility] Start: 08-04-2025 Non-patient / Non-visit Non-patient / Non-visit -[facility] Start: 08-04-2025 Nonstress test [facility] Start: 08-04-2025 Obstetric monitoring [facility] Start: 08-04-2025 Vital signs measurements [facility] Start: 08-04-2025 [facility] Start: 08-04-2025 End: 08-04-2025 Patient encounter procedure Departed Clinical [facility] Work Phone: Start: 08-04-2025 Patient discharge [facility] Start: 07-08-2025 RSV High Risk: (Elderly (60+) or Population) (1 - Risk 1-dose series) RSV High Risk: (Elderly (60+) or Population) (1 - Risk 1-dose series) [facility] Start: 06-07-2025 Measurement of glucose 2 hours after glucose challenge for glucose tolerance test [facility] Start: 06-07-2025 Serologic test for syphilis [facility] Start: 06-07-2025 End: 06-07-2025 [facility] Start: 05-31-2025 COVID-19 Vaccine () COVID-19 Vaccine () [facility] Start: 05-31-2025 Influenza vaccination [facility] Start: 05-07-2025 Nonstress test [facility] Start: 05-07-2025 Obstetric monitoring [facility] Start: 05-07-2025 Vital signs measurements [facility] Start: 05-07-2025 [facility] Start: 05-07-2025 Patient discharge [facility] Start: 02-24-2025 CBC W Auto Differential panel - Blood [facility] Start: 02-24-2025 Hepatitis C antibody measurement [facility] [facility] Start: 02-24-2025 Rubella IgG measurement [facility] Start: 02-24-2025 Serologic test for syphilis [facility] Start: 02-24-2025 [facility] Start: 02-24-2025 Procedure [facility] Start: 02-10-2025 End: 02-10-2025 Patient encounter procedure 02/10/2025 8:20 AM EDT Routine [facility] [address] [place] [address] Lorenza Mauricio MD [address] [place] [id number] [facility] Start: 02-01-2025 Liquid based cervical cytology screening [facility] Start: 07-27-2024 End: 07-27-2024 Patient encounter procedure 07/27/2024 1:15 PM EDT Routine [facility] [address] [place] [address] Jose Delgado MD [address] [facility] Medical Office, [address] [place], [place] [id number] [facility] Start: 07-06-2024 End: 07-06-2024 Professional / ancillary services management 07/06/2024 2:10 PM EDT Ancillary Procedure [facility] [address] [place] [phone] [facility] Start: 05-31-2024 COVID-19 Vaccine ( season) COVID-19 Vaccine ( season) [facility] Start: 05-31-2024 Covid-19 Vaccine ( season) Covid-19 Vaccine () [facility] Start: 05-31-2024 Influenza vaccination [facility] Start: 03-12-2024 End: 03-12-2024 Patient encounter procedure 03/12/2024 2:45 PM EDT Office Visit [facility] Internal Medicine [address] [place] [place] [phone] Forrest Mohr MD [address] [place] [address] [facility] Start: 03-01-2024 End: 01-29-2025 Colonoscopy study Colonoscopy Diagnostic Endoscopy Routine Colitis Expected: 03/01/2024 (Approximate), Expires: 01/29/2025 [facility] Service Area Work Phone: Comment on above: Expected: 03/01/2024 (Approximate), Expi res: 01/29/2025 Start: 01-30-2024 End: 01-30-2024 Patient encounter procedure 01/30/2024 3:45 PM EDT Office Visit [facility] Internal Medicine [address] [place] [address] Forrest Mohr MD [address] [place] [address] [facility] Start: 01-30-2024 End: 03-01-2024 Clostridioides difficile toxin A+B tcdA+tcdB genes [Presence] in Stool by YOEL with probe detection C. difficile, PCR Microbiology Routine Colitis Expected: 01/30/2024 (Approximate), Expires: 03/01/2024 [facility] Work Phone: Comment on above: Expected: 01/30/2024 (Approximate), Expi res: 03/01/2024 Start: 05-31-2023 COVID-19 Vaccine ( season) COVID-19 Vaccine () [facility] Start: 05-31-2023 Influenza vaccination [facility] Start: 10-30-2022 EPVOB, Provider: Jose Delgado, Status: Pen, Time: 1:00 PM EPVOB, Provider: Jose Delgado, Status: Pen, Time: 1:00 PM [facility] Work Phone: Start: 10-23-2022 EPVOBINTL, Provider: Jose Delgado, Status: Pen, Time: 1:45 PM EPVOBINTL, Provider: Jose Delgado, Status: Pen, Time: 1:45 PM [facility] Work Phone: Start: 10-23-2022 Patient encounter procedure [facility] Start: 23-Oct-2022 13:45 Jose Delgado [facility] Start: 10-03-2022 EPV, Provider: Radha Cary, Status: Pen, Time: 3:00 PM EPV, Provider: Radha Cary, Status: Pen, Time: 3:00 PM [facility] [address] DO Work Phone: Start: 10-03-2022 Patient encounter procedure [facility] Start: 08-13-2022 NEWPROB, Provider: Jose Delgado, Status: Pen, Time: 2:15 PM NEWPROB, Provider: Jose Delgado, Status: Pen, Time: 2:15 PM [facility] Work Phone: Start: 07-11-2022 FUV, Provider: Keara Mckenzie, Status: Pen, Time: 3:15 PM FUV, Provider: Keara Mckenzie, Status: Pen, Time: 3:15 PM [address] Work Phone: Start: 07-11-2022 Patient encounter procedure [facility] Start: 04-20-2022 FUV, Provider: Keara Mckenzie, Status: Pen, Time: 1:15 PM FUV, Provider: Keara Mckenzie, Status: Pen, Time: 1:15 PM [address] Work Phone: Start: 04-04-2022 EPV, Provider: Radha Cary, Status: Pen, Time: 3:00 PM EPV, Provider: Radha Cary, Status: Pen, Time: 3:00 PM [facility] Work Phone: Start: 01-19-2022 NEWPROB, Provider: Keara Mckenzie, Status: Pen, Time: 1:00 PM NEWPROB, Provider: Keara Mckenzie, Status: Pen, Time: 1:[address] Work Phone: Start: 2021 DTaP/Tdap/Td Vaccines (1 - Tdap) DTaP/Tdap/Td Vaccines (1 - Tdap) [facility] Start: 2020 Screening for malignant neoplasm of cervix [facility] Start: 2018 Hepatitis B Vaccine (1 of 3 - 19+ 3-dose series) Hepatitis B Vaccine (1 of 3 - 19+ 3-dose series) [facility] Start: 2018 Hepatitis B Vaccines (1 of 3 - 19+ 3-dose series) Hepatitis B Vaccines (1 of 3 - 19+ 3-dose series) [facility] Start: 2018 Pneumococcal Vaccine: Pediatrics and At-Risk Adult Patients (1 of 2 - PCV) Pneumococcal Vaccine: Pediatrics and At-Risk Adult Patients (1 of 2 - PCV) [facility] Start: 2018 Urine microalbumin profile DTaP,Tdap,Td Vaccine (1 - Tdap) [facility] Start: 2017 Anxiety Screening Anxiety Screening [facility] Start: 2017 Depression Screening Depression Screening [facility] Start: 2017 Hepatitis C screening Hepatitis C Screening [facility] Start: 2017 HIV screening HIV Screening [facility] Start: 2014 HPV Vaccine (1 - 3-dose series) HPV Vaccine (1 - 3-dose series) [facility] Start: 2014 HPV Vaccines (1 - 3-dose series) HPV Vaccines (1 - 3-dose series) [facility] Start: 2013 Peds To Adult Transition Annual Assessment Peds To Adult Transition Annual Assessment [facility] Start: 2012 Varicella vaccination Varicella Vaccines (1 of 2 - 13+ 2-dose series) [facility] Start: 2011 Peds To Adult Transition Initial Discussion Peds To Adult Transition Initial Discussion [facility] Start: 2010 HPV Vaccines (1 - 2-dose series) HPV Vaccines (1 - 2-dose series) [facility] Start: 2000 Hepatitis A Vaccines (1 of 2 - Risk 2-dose series) Hepatitis A Vaccines (1 of 2 - Risk 2-dose series) [facility] Start: 2000 MMR Vaccines (1 of 1 - Standard series) MMR Vaccines (1 of 1 - Standard series) [facility] Start: 2000 Varicella vaccination Varicella Vaccines (1 of 2 - 2-dose childhood series) [facility] Start: 1999 COVID-19 Vaccine (#1) COVID-19 Vaccine (#1) [facility] Start: 1999 Hepatitis B Vaccines (1 of 3 - 3-dose series) Hepatitis B Vaccines (1 of 3 - 3-dose series) [facility] Start: 1999 HIV screening HIV Screening [facility] Start: 1999 Lipid panel Lipid Panel [facility] Start: 1999 Yearly Adult Physical Yearly Adult Physical [facility] End: 01-31-2025 Bacteria identified in Urine by Culture [facility] Work Phone: Comment on above: Once (Lab) for 1 Occurrences starting until 01/31/2025 CBC W Auto Different ial panel - Blood [facility] CBC W Auto Different ial panel - Blood [facility] Choriogonadotropin ( test) [Presence] in Serum or Plasma [facility] End: 03-05-2024 Choriogonadotropin ( test) [Presence] in Urine POCT , urine manually resulted Point of Care Testing Routine Once (Lab) for 1 Occurrences starting 03/05/2024 until 03/05/2024 [facility] Work Phone: Comment on above: Once (Lab) for 1 Occurrences starting until 03/05/2024 Erythrocyte mean corpuscular volume determination [facility] End: 01-30-2024 Extra Urine Coffman Tube [facility] Work Phone: Comment on above: Once for 1 Occurrences starting 01/30/20 24 until 01/30/2024 End: 01-31-2025 Extra Urine Coffman Tube [facility] Work Phone: Comment on above: Once for 1 Occurrences starting 02/01/20 25 until 01/31/2025 Hematocrit [Volume Fraction] of Blood [facility] Hemoglobin [Mass/vol ume] in Blood [facility] Hepatitis B virus aguirre rface Ag [Presence] in Serum [facility] Hepatitis C antibody measurement [facility] Leukocytes [#/volume ] in Blood [facility] Mean corpuscular hem oglobin concentration determination [facility] Mean corpuscular hem oglobin determination [facility] Measurement of gluco se 2 hours after glucose challenge for glucose tolerance test [facility] End: 03-05-2024 Moderate Sedation Moderate Sedation Procedures Routine Once for 1 Occurrences starting 03/05/2024 until 03/05/2024 [facility] Work Phone: Comment on above: Once for 1 Occurrences starting 03/05/20 24 until 03/05/2024 Neutrophil count [facility] Neutrophil percent differential count [facility] Patient Education [facility] Work Phone: Platelets [#/volume] in Blood [facility] End: 03-05-2024 Pulse oximetry, continuous Pulse oximetry, continuous Respiratory Care Routine Continuous until discontinued starting 03/05/2024 [facility] Work Phone: Comment on above: Continuous until discontinued starting 0 03/05/2024 End: 03-05-2024 Pulse oximetry, spot Pulse oximetry, spot Respiratory Care Routine Once for 1 Occurrences starting 03/05/2024 until 03/05/2024 [facility] Service Area Work Phone: Comment on above: Once for 1 Occurrences starting 03/05/20 until 03/05/2024 Red blood cell count [facility] Red cell distributio n width determination [facility] Rubella IgG measurement [facility] Serologic test for syphilis [facility] Serologic test for syphilis [facility] Surgical pathology study [facility] Work Phone: Comment on above: Release Upon Ordering for 1 Occurrences starting 03/05/2024 Ultrasound scan for growth [facility] End: 01-30-2024 Urinalysis complete W Reflex Culture panel - Urine [facility] Service Area Work Phone: Comment on above: STAT (Lab) for 1 Occurrences starting until 01/30/2024 End: 01-31-2025 Urinalysis complete W Reflex Culture panel - Urine [facility] Service Area Work Phone: Comment on above: Once (Lab) for 1 Occurrences starting until 01/31/2025 End: 10-30-2024 US Pelvis US pelvis Imaging STAT Once for 1 Occurrences starting 10/30/2024 until 10/30/2024 [facility] Service Area Work Phone: Comment on above: Once for 1 Occurrences starting 01 until 10/30/2024 [facility] Immunizations Immunization Date Immunization Notes Care Provider Fa tamiacindy 07-06-2025 influenza, injectabl e, madin iraj canine kidney, preservative free Radha Cary CALENDER MACHINE OPERATOR HELPER-C Work Phone: [facility] 06-22-2025 tetanus toxoid, redu luz diphtheria toxoid, and acellular pertussis vaccine, adsorbed Radha Cary CALENDER MACHINE OPERATOR HELPER-C Work Phone: [facility] Payers Date Payer Category Payer Self-pay 2023 Medicaid [facility] MEDICAID [facility] [id number] 2023-Present [phone] [address] [place] [address] Medicaid [id number] 2022 Unknown 2022 Medicaid (Managed Care) [facility] COMMUN[facility] PLAN [id number] 2022 Private Health Insurance [facility] [id number] 2022-Present [address] [place] [address] [id number]. [id number] 2022 Private Health Insurance [id number] 1999 Unknown [id number] 2.16.840.1.759042.3.579.2. 1069 1999 Unknown [id number] 2.16.840.1.824790.3.579.2. 9 1999 Unknown [id number] 2.16.840.1.999326.3.579.2. 1068 1999 Unknown [id number] 2.16.840.1.732202.3.579.2. 1068 1999 Unknown [id number] 2.16.840.1.009835.3.579.2. 1068 1999 Unknown [id number] 2.16.840.1.631728.3.579.2. 1068 1999 Unknown [id number] 2.16.840.1.296979.3.579.2. 1068 1999 Unknown [id number] 2.16.840.1.094261.3.579.2. 1999 Unknown [id number] 2.840.1.005193.3.579.2. 1999 Unknown [id number] 2.16840.1.242984.3.579.2. 1999 Unknown [id number] 2.16840.1.223587.3.579.2. 1999 Unknown [id number] 2.840.1.185051.3.579.2. 1999 Unknown [id number] 2.840.1.559798.3.579.2. 1999 Unknown [id number] 2.16840.1.156307.3.579.2. 1999 Unknown [id number] 2.16840.1.776204.3.579.2. 1999 Unknown [id number] 2.16840.1.783409.3.579.2. 1999 Unknown [id number] 2.16840.1.167491.3.579.2. 1999 Unknown [id number] 2.16840.1.859058.3.579.2. 356 1999 Unknown [id number] 2.840.1.243599.3.579.2. 1243 1999 Unknown [id number] 2.840.1.658021.3.579.2. 1243 1999 Unknown [id number] 2.840.1.386164.3.579.2. 1243 1999 Unknown [id number] 2.840.1.408919.3.579.2. 1243 1999 Unknown [id number] 2.0.1.474509.3.579.2. 1244 1999 Unknown [id number] 2.840.1.038112.3.579.2. 1244 1999 Unknown [id number] 2.0.1.136951.3.579.2. 479 1999 Unknown [id number] 2.840.1.663911.3.579.2. 479 Medicaid [id number] Private Health Insurance [id number] Unknown [id number] Unknown [id number] Unknown [id number] 2.840.1.094969.3.579.2. 462 Unknown [id number] 2840.1.944659.3.579.2. 462 Unknown [id number] 2.840.1.027956.3.579.2. 462 Unknown [id number] 2.840.1.163582.3.579.2. 462 Unknown [id number] 2.0.1.472270.3.579.2. 462 Unknown [id number] 2.16.840.1.151660.3.579.2. 462 Unknown [id number] 2.16.840.1.936312.3.579.2. 462 Unknown [id number] 2.16.840.1.668123.3.579.2. 462 Unknown [id number] 2.16.840.1.908413.3.579.2. 462 Unknown [id number] 2.840.1.407271.3.579.2. 462 Unknown [id number] 2.840.1.803936.3.579.2. 462 Unknown [id number] 2.840.1.748794.3.579.2. 462 Unknown [id number] 2.840.1.313867.3.579.2. 462 Unknown [id number] 2.840.1.690621.3.579.2. 462 Unknown [id number] .840.1.224367.3.579.2. 462 Unknown [id number] 2.840.1.441583.3.579.2. 462 Unknown [id number] 2.840.1.246174.3.579.2. 462 Unknown [id number] 2.840.1.478022.3.579.2. 462 Unknown [id number] .840.1.187596.3.579.2. 462 Unknown [id number] 2.840.1.274144.3.579.2. 462 Unknown [id number] 2.840.1.217863.3.579.2. 462 Unknown [id number] 2.840.1.464913.3.579.2. 462 Unknown [id number] 2.840.1.583334.3.579.2. 462 Unknown [id number] 2.840.1.852940.3.579.2. 462 Unknown [id number] 2.16.840.1.126900.3.579.2. 462 Social History Date Type Detail Facility Start: 01-23-2023 End: 01-13-2025 Occasional alcohol use Occasional alcohol use [facility] Tobacco smoking consumption unknown [facility] Start: 1999 Sex Assigned At Female [facility] Start: 01-23-2023 Tobacco smoking status NHIS Never smoked tobacco [facility] Work Phone: Start: 01-23-2023 End: 07-06-2024 Tobacco use and exposure Smokeless tobacco non-user [facility] Work Phone: Start: 01-23-2023 End: 01-13-2025 Tobacco use panel [facility] Start: 1999 Sex Assigned At Not on file [facility] Work Phone: Start: 10-29-2023 End: 03-05-2024 Alcohol intake Current drinker of alcohol (finding) [facility] Work Phone: Start: 10-29-2023 Alcohol Comment rare [facility] Work Phone: Start: 10-19-2023 End: 01-31-2025 Exposure to SARS-CoV-2 (event) Not sure [facility] Start: 01-30-2024 Gender identity Identifies as female gender (finding) [facility] Work Phone: Start: 07-06-2024 End: 01-22-2025 Tobacco smoking status NHIS Smokes tobacco daily [facility] Work Phone: Start: 07-06-2024 End: 01-31-2025 Alcoholic beverage intake Ex-drinker (finding) [facility] Work Phone: Start: 07-06-2024 Tobacco Comment I have a vape [facility] Work Phone: Start: 08-24-2022 National Score (1-100), lower number is lower risk 66 [facility] The thought of harming myself has occurred to me Never [facility] Work Phone: Start: 12-10-2024 [facility] Work Phone: NEGATED: Highlighted [place] - [place] [address] [address] Work Phone: Functional Status Date Assessment Result Facility 01-31-2025 Geary - suicide severity rating scale screener - recent [C-SSRS] [facility] Work Phone: 05-02-2024 Functional status [facility] 05-02-2024 [facility]: 03-05-2024 [facility] Work Phone: 03-05-2024 Geary - suicide severity rating scale screener - recent [C-SSRS] [facility] Work Phone: 03-05-2024 Functional status [facility] Work Phone: NEGATED: Highlighted row Functional performance Functional status health issues are not documented Disease [place] [address] [address] Work Phone: Mental Status Date Assessment Result Facility 03-05-2024 Cognitive function finding Negative 03/05/2024 8:30 AM eKllie Viera RN Negative [facility] NEGATED: Highlighted row Cognitive function [Interpretation] Cognitive status health issues are not documented Disease [address] Work Phone: Clinical Notes 06-30-2022 to 07-21-2025 Note Date & Type Note Facility 07-21-2025 Progress note [facility] 07-06-2025 Progress note [facility] 06-22-2025 Progress note [facility] 05-20-2025 [facility] 05-20-2025 Progress note Note Date/Time May 20, 2025 2:14pm [facility]'s [address], [address] [place] [id number] OFFICE VISIT Date of Service: 05/20/25 MR#: [id number] Acct: [id number] Name: DEBI VERDUZCO Rep #: [id number] : 2000 Provider: Dr. Guanakito Us MD Age/Sex: 25/F Location[place] [facility] Status: Signed Intake Vital Signs 03/25/25 13:34 05/07/25 18:29 05/20/25 13:53 Height 5 ft 5 in 5 ft 5 in 5 ft 5 in Weight: 145 lb 3 oz BMI 24.1 BP 110/72 Intake Visit Reasons: 25 wk ob Blow Pit Operator Required: No Is patient in pain?: No [...] children number of children: 1 current occupation: [employer] current occupational exposures/hazards: No pets and animals: [...] physical activity do you participate in: none dania/oriental orthodox: None seatbelt use: never do you feel safe at home: Yes additional social history: Boyfriend: Johny - Works at [employer] History 4 Elective abortions Hx Para 1 Spontaneous abortions 2 Hx # Term Pregnancies 1 Ectopic pregnancies Hx # Pregnancies Multiple births # of living children 1 Past Pregnancies Del. Date Name GA/Weeks Outcome Route Bth Weight Infant Gen Labor Lgth Anesthesia Del Locatn Provider FOB 11/23/19 [place] 39 live - full term 6lbs 12oz [...] dates. accepts NIPT. [facility]. [facility]- CRL cons with dates. acc epts NIPT. had last [facility]-no compl ications. having significant nausea and vomiting. [...] Cosigner Signature: Date (if applicable) CC: ~ [facility] Work Phone: 1(516) 572-241807-25-2025 Evaluation note* Diagnosis Onset Date Resolution Status [...] size-date discrepancy, third trimester acute Jul 9:02am [facility] Work Phone: 1(398) 705-279807-25-2025 [facility] [address] [place] [address], [address] [place] [address] OFFICE VISIT Date of Service: 04/23/25 MR#: [id number] Acct: [id number] Name: DEBI VERDUZCO Rep #: [id number] : 2000 Provider: BOB Ayala Age/Sex: 25/F Location[place] [facility] Status: Signed Intake Vital Signs 02/01/25 13:03 03/25/25 13:34 04/23/25 10:44 04/23/25 10:49 Height 5 ft 5 in 5 ft 5 in 5 ft 5 in 5 ft 5 in Weight: 138 lb 8 oz BMI 23.0 BP 108/73 Intake Visit Reasons: 21wk ob Chief Complaint: 21 Week OB Blow Pit Operator Required: No Is patient in pain?: No [...] children number of children: 1 current occupation: [employer] current occupational exposures/hazards: No pets and animals: [...] physical activity do you participate in: none dania/oriental orthodox: None seatbelt use: never do you feel safe at home: Yes additional social history: Boyfriend: Johny - Works at [employer] History 4 Elective abortions Hx Para 1 Spontaneous abortions 2 Hx # Term Pregnancies 1 Ectopic pregnancies Hx # Pregnancies Multiple births # of living children 1 Past Pregnancies Del. Date Name GA/Weeks Outcome Route Bth Weight Gen Labor Lgth Anesthesia Del Locatn Provider FOB 11/23/19 [place] 39 live - full term 6lbs 12oz Female epidural [facility] Johny 09/30/21 8 spontaneous 07/08/24 8 spontaneous [...] dates. accepts NIPT. had last [facility] at [facility]-no complications. KW- CRL cons with dates. acc epts NIPT. had last baby at [facility]-no complications. having significant nausea and vomiting. standing [...] Cosigner Signature: Date (if applicable) CC: ~ [facility]06-26-2025 Evaluation note* Diagnosis Onset Date Resolution [...] of high-risk acute June 22, 2025 12:47pm [facility] Work Phone: 1(842) 844-493306-26-2025 Evaluation note* Diagnosis Onset Date Resolution Status [...] Supervision of high-risk acute July 06 9:44am [facility] Work Phone: 1(529) 685-566105-28-2025 [facility] [address] [place] [address], [address] [place] [address] OFFICE VISIT Date of Service: 02/24/25 MR#: [id number] Acct: [id number] Name: DEBI VERDUZCO Rep #: [id number] : 2000 Provider: Dr. Nica Villalobos DO Age/Sex: 24/F Location: [facility] Status: Signed Intake Vital Signs 01/05/25 08:45 02/19/25 14:36 02/24/25 13:57 Height 5 ft 5 in 5 ft 5 in 5 ft 5 in Weight: 137 lb BMI 22.8 BP 97/62 Intake Visit Reasons: 13wk ob Blow Pit Operator Required: No Is patient in pain?: No [...] children number of children: 1 current occupation: [employer] current occupational exposures/hazards: No pets and animals: [...] physical activity do you participate in: none dania/oriental orthodox: None seatbelt use: never do you feel safe at home: Yes additional social history: Boyfriend: Johny - Works at [employer] History 2 4 Elective abortions Hx Para 1 Spontaneous abortions 2 Hx # Term Pregnancies 1 Ectopic pregnancies Hx # Pregnancies Multiple births # of living children 1 Past Pregnancies Del. Date Name GA/Weeks Outcome Route Bth Weight Infant Gen Labor Lgth Anesthesia Del Locatn Provider FOB 11/23/19 [place] 39 live - full term 6lbs 12oz Female [facility] Johny 09/30/21 8 spontaneous 07/08/24 8 spontaneous [...] dates. accepts NIPT. had [facility] at [facility]-no complications. KW- CRL cons with dates. acc epts NIPT. had last baby at [facility]-no complications. having significant nausea and vomiting. standing [...] Cosigner Signature: Date (if applicable) CC: ~ [facility]05-28-2025 Progress note Author Colleen Dillard [facility] Note Date/Time February 24, 2025 2:39p [facility] [address], [address] [place] [address] OFFICE VISIT Date of Service: 02/24/25 MR#: [id number] Acct: [id number] Name: DEBI VERDUZCO Rep #: [id number] : 2000 Provider: Dr. Nica Villalobos DO Age/Sex: 24/F Location: [facility] Status: Signed Intake Vital Signs 01/05/25 08:45 02/19/25 14:36 02/24/25 13:57 Height 5 ft 5 in 5 ft 5 in 5 ft 5 in Weight: 137 lb BMI 22.8 BP 97/62 Intake Visit Reasons: 13wk ob Blow Pit Operator Required: No Is patient in pain?: No [...] children number of children: 1 current occupation: [employer] current occupational exposures/hazards: No pets and animals: [...] physical activity do you participate in: none dania/oriental orthodox: None seatbelt use: never do you feel safe at home: Yes additional social history: Boyfriend: Johny - Works at [employer] History 2 4 Elective abortions Hx Para 1 Spontaneous abortions 2 Hx # Term Pregnancies 1 Ectopic pregnancies Hx # Pregnancies Multiple births # of living children 1 Past Pregnancies Del. Date Name GA/Weeks Outcome Route Bth Weight Gen Labor Lgth Anesthesia Del Locatn Provider FOB 11/23/19 Nathalie 39 live - full term 6lbs 12oz Female epidural [facility] Johny 09/30/21 8 spontaneous 07/08/24 8 spontaneous [...] dates. accepts NIPT. [facility]. [facility]- CRL cons with dates. acc epts NIPT. [facility] complications. having significant nausea and vomiting. standing [...] Cosigner Signature: Date (if applicable) CC: ~ [facility] [employer] Work Phone: 1(258) 736-865005-23-2025 Evaluation note* Diagnosis Onset Date Resolution Status [...] high-risk acute June 07, 2 025 1:23pm [facility] Work Phone: [phone]) 309-956805-05-2025 Evaluation note* Diagnosis Onset Date Resolution Status [...] of high-risk acute April 23, 2025 10:39am [facility] Work Phone: [phone] Evaluation note* Diagnosis Onset Date Resolution Status [...] Supervision of high-risk acute May 20 1:50pm [facility] Work Phone: [phone]) 338-940305-04-2025 Emergency department Note* Lorenza Jeter PA-C - [...] MDM Diagnoses as of 01/31/252038 Morning sickness ([facility]) Urinary tract infection without hematuria, site unspecified [...] Lorenza Jeter PA-C 01/31/252038 documented in this [facility] Work Phone: [phone]) [phone] Physician Emergency department Note* Lorenza Jeter PA-C [...] MDM Diagnoses as of 01/31/252038 Morning sickness ([facility]) Urinary tract infection without hematuria, site unspecified [...] use: Not Currently Lorenza Jeter PA-C 01/31/252038 [facility] Work Phone: [phone]) [phone] Evaluation note* Diagnosis Onset Date Resolution Status Admit Date Amenorrhea inactive January 05 8:38am Anxiety and depression acute Ma y 2024 12:58pm History of miscarriage, currently acute February 01, 2025 12:58pm acute February 01, 2025 12:58pm Supervision of high-risk acute February 01, 2025 12 :58pm [facility] Work Phone: [phone] 336-924104-08-2025 Evaluation note* Diagnosis Onset Date Resolution Status [...] high-risk acute February 24, 2025 1 :46pm [facility] Work Phone: [phone] Evaluation note* Diagnosis Onset Date Resolution Status [...] of high-risk acute March 25, 2025 1:31pm [facility] Work Phone: [phone] Evaluation note* Diagnosis Onset Date Resolution Status [...] of high-risk acute April 23, 2025 10:39am [facility] Work Phone: [phone] Hospital Discharge instructions* Discharge Instructions* Emily Claros [...] recommendation.. It is recommended thatyou follow-up with [employer]. Return immediately for any new or worsening symptoms. documented in this [facility] Work Phone: [phone] Physician Emergency department Note* Emily Claros PA-C [...] nursing note reviewed. Exam conducted with a cold food packer present (Morena Hwang RN). Constitutional: General: She [...] Vaginal bleeding Emily Claros PA-C 10/30/24 1230 [facility] Work Phone: [phone] 392-216701-31-2025 Emergency department Note* Emily Claros PA-C - [...] nursing note reviewed. Exam conducted with a cold food packer present (Morena Hwang RN). Constitutional: General: She [...] They had eloped from the emergency department. [facility] diagnosis includes but not limited to abnormal uterine bleeding, retained products of conception, ectopic , miscarriage Amount and/or Complexity of Data Reviewed Labs: ordered. Decision-making details documented in ED Course. Diagnoses as of 10/30/24 1230 Vaginal bleeding Emily Claros PA-C 10/30/24 1230 documented in this [facility] Work Phone: [phone] History of Present illness Narrative* Jose Delgado [...] mcg/actuation aero powdr breath act w/sensor inhaler [id number] Inhale 1 puff every 6 hours if needed for wheezing. Historical Provider, Active escitalopram (Lexapro) 20 mg tablet [id number] Take 1 tablet (20 mg) by mouth once daily. Radha Cary, SERVICES ACCOUNT MANAGER-REMEDIATION CONSULTANT Active Discontinued 07/06/24 1354 vit,bruce 18-rzkl-jqzes 27 mg iron- 1 mg tablet [id number] Take 1 tablet by mouth once daily.Jose Delgado MD Active vitamin, iron-folic, ( Vitamin) 27 mg iron-800 mcg folic acid tablet [id number] Take by mouth. Historical Provider, Active promethazine (Phenergan) 25 mg tablet [id number] Take 1 tablet (25 mg) by mouth every 6 hours if needed for nausea or vomiting. Jose Delgado MD Active BP 104/62 Ht 1.651 m (5' 5) Wt 64.5 kg (142 lb 3.2 oz) LMP 05/09/2024 (Exact Date) BMI 23.66 kg/m PHYSICAL EXAMINATION: Floor Inspector present for exam: Colleenyina Mcgarry LPN Well-developed, [...] This Visit None Visit Diagnoses test positive ([facility]) Relevant Orders POCT , urine manually resulted (Completed) Provider Impression: 1. Amenorrhea Follow-up in 3 weeks for new OB visit, cultures and labs. [facility] Work Phone: [phone] Telephone encounter Note* Telephone Encounter - Jennifer Dewey RN - 06/30/2024 12:17 PM EDT Left message for patient to return phone call to complete nurse intake questions for her upcoming appointment. Patient has an appointment with Ana Callaway for NOB appointment. [facility]10-01-2024 Miscellaneous Notes* Telephone Encounter - Jennifer Dewey RN - 06/30/2024 12:17 PM EDT Left message for patient to return phone call to complete nurse intake questions for her upcoming appointment. Patient has an appointment with Ana Callaway for NOB appointment. [facility] History and physical note * Forrest [...] Diagnoses Colitis Relevant Orders Colonoscopy Diagnostic [facility] Work Phone: [phone] History and physical note* Forrest Mohr MD [...] Relevant Orders Colonoscopy Diagnostic documented in this encounterUC [facility] Work Phone: [phone] History and physical note* Forrest Mohr MD [...] Relevant Orders Colonoscopy Diagnostic documented in this encounterUC [facility] Work Phone: 1([phone]) 939-982405-02-2024 History of Present illness Narrative* Forrest Mohr [...] OR PROCEDURE REFERRAL, . documented in this encounterUC [facility] Work Phone: [phone] Miscellaneous Notes* Addendum Note - Forrest Mohr MD - 01/30/2024 3:45 PM EDTAddended by: FORREST MOHR on: 01/30/2024 05:37 PM Modules accepted: Level of Service documented in this encounterUC Health Work Phone: [phone]) 389-923305-02-2024 Note* Addendum Note - Forrest Mohr MD - 01/30/2024 3:45 PM EDTAddended by: FORREST MOHR on: 01/30/2024 05:37 PM Modules accepted: Level of Service [facility] Work Phone: [phone] Reason for referral (narrative)* Consultation (Routine) - Authorized Specialty Diagnoses / Procedures Referred By Contac t Referred To Contact General Surgery Shae Pastor DO [address] [place] [address] Referral ID Status Reason Start Date Expiration Date Visits Requested Visits Authorized [id number] Authorized Specialty Services Required 01/30/2024 01/29/2025 1 1 * Consultation (Emergency) - Authorized Specialty Diagnoses / Procedures Referred By Contac t Referred To Contact Gastroenterology Shae Pastor DO [address] [place] [address] Referral ID Status Reason Start Date Expiration Date Visits Requested Visits Authorized [id number] Authorized Specialty Services Required 01/30/2024 01/29/2025 1 1 * Consultation (Routine) - Authorized Specialty Diagnoses / Procedures Referred By Kory t Referred To Contact Family Medicine / Primary Care Shae Pastor DO [address] [place] [address] Referral ID Status Reason Start Date Expiration Date Visits Requested Visits Authorized [id number] Authorized Specialty Services Required 01/30/2024 01/29/2025 1 1 [facility] Work Phone: [phone] Evaluation + Plan note* Assessment & Plan Note - ROSCOE Marshall - 10/31/2023 8:11 AM ESTAssociated Problem(s): Generalized anxiety disorder Continue Escitalopram 20 mg daily. [facility] Work Phone: [phone]) 820-107402-01-2024 Evaluation + Plan note* Assessment & Plan Note - ROSCOE Marshall - 10/31/2023 8:11 AM ESTAssociated Problem(s): Persistent depressive disorder Stable Continue Escitalopram 20 mg daily [facility] Work Phone: [phone]) 160-515302-01-2024 Miscellaneous Notes* Assessment & Plan Note - ROSCOE Marshall - 10/31/2023 8:11 AM ESTAssociated Problem(s): Generalized anxiety disorder Continue Escitalopram 20 mg daily. * Assessment & Plan Note - ROSCOE Marshall - 10/31/2023 8:11 AM EST Associated Problem(s): Persistent depressive disorder Stable Continue Escitalopram 20 mg daily documented in this [facility] Work Phone: [phone]) 739-645201-30-2024 History of Present illness Narrative* Leigh Blakely CMA - 10/29/2023 1:00 PM EST Follow up and refills * ROSCOE Marshall - 10/29/2023 1:00 PM EST Subjective Patient ID: Debi Verduzco is a 23 y.o. female who presents for Follow-up. HPI Debi returns for anxiety/depression medication refill. She has no other concerns today. Anxiety/depression: doing well on Lexapro. Is in counseling at [facility]. 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 Review [...] with results of labs. documented in this encounterUC Health Work Phone: [phone]) [phone] Instructions* Patient Instructions* ROSCOE Marshall - 10/29/2023 [...] seek urgent/emergent care including calling Suicide Hotline (869 or ) or 911. documented in this encounterUC Health Work Phone: [phone]) [phone] Evaluation + Plan note* Assessment & Plan Note - ROSCOE Marshall - 01/23/2023 2:35 PM EDTAssociated Problem(s): Generalized anxiety disorder We will restart her Lexapro at 5 mg and increase after a week to 10 mg. She will let us know how she is doing and then we can increase her back up to 20 mg. [facility] Work Phone: [phone] Miscellaneous Notes* Assessment & Plan Note - ROSCOE Marshall - 01/23/2023 2:35 PM EDTAssociated Problem(s): Generalized anxiety disorder We will restart her Lexapro at 5 mg and increase after a week to 10 mg. She will let us know how she is doing and then we can increase her back up to 20 mg. [facility] Work Phone: [phone]) [phone] History of Present illness Narrative* ROSCOE Marshall - 01/23/2023 1:40 PM EDT Subjective Patient ID: Debi Verduzco is a 22 y.o. female who presents for anxiety/depression. HPI Debi returns virtually for anxiety/depression. Is going to start counseling beginning of January at [facility]. She reports she is feeling anxious and [...] beginning a new job next week at [employer]. She is excited about this. Suicide hotline [...] disorder without psychotic features without prior episode ([facility]/H[facility]) BMI 22.0-22.9, adult Time Spent Time spent directly with patient, family or caregiver: 30 minutes (minutes virtual visit) Follow up in 3 months for medication check. She will let us know how she is doing after 1 month. documented in this encounterUC Health Work Phone: [phone]) 436-903102-06-2023 History of Present illness Narrative Presents she had onset of left breast pain and redness with warmth to the touch since yesterday. Denies any nipple discharge or any breast lumps.[facility] [facility] Work Phone: [phone] History of Present illness NarrativePatient presents stating that she has not had a menstrual flow after a course of Provera 5 mg for 10 days for withdrawal challenge in mid June. Patient had received her Depo-Provera shot in December and has had no menstrual flow since then.[facility] Work Phone: Evaluation noteNo assessment information available [facility] Work Phone: Evaluation note* Diagnosis Generalized anxiety disorder- Primary Current severe episode of major depressive disorder without psychotic features without prior episode (CMS/HCC) BMI 22.0-22.9, adult documented in this encounter [facility] Work Phone: Evaluation note* Diagnosis Generalized anxiety disorder- Primary Persistent depressive disorder BMI 22.0-22.9, adult documented in this encounter [facility] Work Phone: Evaluation note* Diagnosis Colitis- Primary Other and unspecified noninfectious gastroenteritis and colitis Rectal bleeding Hemorrhage of rectum and anus Abdominal pain, generalized Kidney stone Calculus of kidney documented in this encounter [facility] Work Phone: Evaluation note* Diagnosis Colitis- Primary Other and unspecified noninfectious gastroenteritis and colitis documented in this encounter [facility] Work Phone: Evaluation note* Diagnosis Colitis Other and unspecified noninfectious gastroenteritis and colitis documented in this encounter [facility] Work Phone: Evaluation note* Diagnosis Generalized anxiety disorder- Primary Current severe episode of major depressive disorder without psychotic features without prior episode (Multi) BMI 22.0-22.9, adult Generalized anxiety disorder- Primary Persistent depressive disorder BMI 22.0-22.9, adult Amenorrhea- Primary Absence of menstruation test positive ([facility]) examination or test, positive result documented in this encounter [facility] Work Phone: Evaluation note* Diagnosis Generalized anxiety disorder- Primary Current severe episode of major depressive disorder without psychotic features without prior episode (Multi) BMI 22.0-22.9, adult Generalized anxiety disorder- Primary Persistent depressive disorder BMI 22.0-22.9, adult Vaginal bleeding- Primary Other specified noninflammatory disorder of vagina documented in this encounter [facility] Work Phone: Evaluation note* Diagnosis Generalized anxiety disorder- Primary Current severe episode of major depressive disorder without psychotic features without prior episode (Multi) BMI 22.0-22.9, adult Generalized anxiety disorder- Primary Persistent depressive disorder BMI 22.0-22.9, adult Morning sickness ([facility])- Primary Mild hyperemesis gravidarum, unspecified as to episode of care Urinary tract infection without hematuria, site unspecified documented in this encounter [facility] Work Phone: Evaluation note* Diagnosis Generalized anxiety disorder- Primary Current severe episode of major depressive disorder without psychotic features without prior episode (Multi) BMI 22.0-22.9, adult Generalized anxiety disorder- Primary Persistent depressive disorder BMI 22.0-22.9, adult Colitis Other and unspecified noninfectious gastroenteritis and colitis documented in this encounter [facility] Work Phone: History of Present illness Narrative* [...] Drugs: Denies * Caffeine: 1 cup day [facility] Work Phone: History of Present illness Narrative* Debi returns for medication check. * doing well. feels like [facility] [address] DO Work Phone: History of Present illness Narrative* Debi returns for medication check. * Anxiety/depression: She reports she is doing well. doing well. She would like to see if the dose can be increased as she feels it is working just thinks it can be better. States, my boyfriend has noticed a difference in my mood. [facility] [address] DO Work Phone: History of Present illness [id number] presents for pain during intimacy. Patient has [...] 2 monthsago has not yet had a cycleWL[employer]xx [employer] Work Phone: History of Present illness Algdatims79-ruet-[id number] presents for results review. Patient interested in fertility and would like to have a cycle here shortly to start that process. Patient's been almost a month since her last Depo shot. Patient is no acute concerns. Patient went to the ED and found out that a CT really showed nothing.[facility] Work Phone: History of Present illness NarrativePatient presents for follow-up after being seen in the emergency room recently due to vaginal bleeding. Patient states that she still has some bleeding and some cramps. She has some breast tenderness.[facility] Work Phone: Hospital Discharge instructions* Attachments The following attachments cannot be sent through Care Everywhere. * Colitis Discharge Instructions (Swiss) * Abdominal Pain, Adult ED ([facility]) * Bloody Stools, Adult ED ([facility]) * Kidney Stone, Adult ED ([place]) documented in this [facility]Un[facility] Work Phone: Hospital Discharge instructions* Attachments The following attachments cannot be sent through Care Everywhere. * Urinary Tract Infection, Adult ED ([place]) * Morning Sickness ED ([place]) documented in this encounterUnM[facility]field [facility] Work Phone: Progress note Author Mariajose Ayala [facility] Note Date/Time April 23, 2025 11:1 1am [facility] [address] [place] [address], [address] [place] [address] OFFICE VISIT Date of Service: 04/23/25 MR#: [id number] Acct: [id number] Name: DEBI VERDUZCO Rep #: [id number] : 2000 Provider: BOB Ayala Age/Sex: 25/F Location: [facility] Status: Signed Intake Vital Signs 02/01/25 13:03 03/25/25 13:34 04/23/25 10:44 04/23/25 10:49 Height 5 ft 5 in 5 ft 5 in 5 ft 5 in 5 ft 5 in Weight: 138 lb 8 oz BMI 23.0 BP 108/73 Intake Visit Reasons: 21wk ob Chief Complaint: 21 Week OB Blow Pit Operator Required: No Is patient in pain?: No [...] children number of children: 1 current occupation: [employer] current occupational exposures/hazards: No pets and animals: [...] physical activity do you participate in: none dania/oriental orthodox: None seatbelt use: never do you feel safe at home: Yes additional social history: Boyfriend: Johny - Works at [employer] History 4 Elective abortions Hx Para 1 [...] dates. accepts NIPT. [facility]. [facility]- CRL cons with dates. acc epts NIPT. had last baby [facility]-no complications. having significant nausea and vomiting. standing [...] Cosigner Signature: Date (if applicable) CC: ~ [facility] Work Phone: Progress note Author Mariajose Ayala [facility] Note Date/Time June 22, 2025 1:24pm [facility] [address], [facility] [address] [place] [address] OFFICE VISIT Date of Service: 06/22/25 MR#: [id number] Acct: [id number] Name: DEBI VERDUZCO Rep #: [id number] : 2000 Provider: BOB Ayala Age/Sex: 25/F Location[place] [facility] Status: Signed Intake Vital Signs 04/23/25 10:49 06/07/25 13:30 06/22/25 12:57 Height 5 ft 5 in 5 ft 5 in 5 ft 5 in Weight: 152 lb 1 oz BMI 25.2 BP 107/72 Intake Visit Reasons: 30 WK OB Chief Complaint: 30wk OB Blow Pit Operator Required: No Is patient in pain?: No [...] children number of children: 1 current occupation: [employer] current occupational exposures/hazards: No pets and animals: [...] physical activity do you participate in: none dania/oriental orthodox: None seatbelt use: never do you feel safe at home: Yes additional social history: Boyfriend: Johny - Works at [employer] History 4 Elective abortions Hx Para 1 Spontaneous abortions 2 Hx # Term Pregnancies 1 Ectopic pregnancies Hx # Pregnancies Multiple births # of living children 1 Past Pregnancies Del. Date Name GA/Weeks Outcome Route Bth Weight Infant Gen Labor Lgth Anesthesia Del Locatn Provider FOB 11/23/19 [place] 39 live - full term 6lbs 12oz Female epidural [facility] Johny 09/30/21 8 spontaneous 07/08/24 8 spontaneous [...] dates. accepts NIPT. [facility]. KW- CRL cons with dates. acc epts NIPT. had last baby at [facility]-no complications. having significant nausea and vomiting. standing [...] Signs and Symptoms of Preeclampsia, Infant Feeding, [place] [employer] and Family Medical Leave or [...] Performing Provider: Mariajose Ayala CNM Performing Location: [facility] Administered by: Nelli Askew on 06/22/25 13:04 Dose Route Admin Location Dispensed Lot Number Expiration Date Pack age NDC NDC Temporary Staff Accountant 0.5 mL IM Left Deltoid 0.5 mL [id number] 05/29/27 63559-296-55 [id number] [employer]- PASTEUR VIS Given Date VIS Provided [...] , unspecified, second trimester Comment: PRR , MYRNO 09/02/25,karine crenshaw PC: Nathalie BF: Johny (3) [...] Cosigner Signature: Date (if applicable) CC: ~ [facility] Work Phone: Progress note Author Colleen Dillard [facility] Note Date/Time July 06, 2025 10 :15am [facility] [address], [address] [place] [address] OFFICE VISIT Date of Service: 07/06/25 MR#: [id number] Acct: [id number] Name: DEBI VERDUZCO Rep #: [id number] : 2000 Provider: Dr. Nica Villalobos DO Age/Sex: 25/F Location: [facility] Status: Signed Intake Vital Signs 05/20/25 13:53 06/22/25 12:57 07/06/25 09:56 Height 5 ft 5 in 5 ft 5 in 5 ft 5 in Weight: 156 lb 3 oz BMI 25.9 BP 112/73 Intake Visit Reasons: 31 WK 5B OB Blow Pit Operator Required: No Is patient in pain?: No [...] children number of children: 1 current occupation: [employer] current occupational exposures/hazards: No pets and animals: [...] physical activity do you participate in: none dania/oriental orthodox: None seatbelt use: never do you feel safe at home: Yes additional social history: Boyfriend: Johny - Works at [employer] History 4 Elective abortions Hx Para 1 Spontaneous abortions 2 Hx # Term Pregnancies 1 Ectopic pregnancies Hx # Pregnancies Multiple births # of living children 1 Past Pregnancies Del. Date Name GA/Weeks Outcome Route Bth Weight Gen Labor Lgth Anesthesia Del Locatn Provider FOB 11/23/19 [place]ath[place] 39 live - full term 6lbs 12oz Female epidural [facility] Johny 09/30/21 8 spontaneous 07/08/24 8 spontaneous [...] dates. accepts NIPT. [facility]. KW- CRL cons with dates. acc epts NIPT. had last baby at [facility]-no complications. having significant nausea and vomiting. standing [...] Knapp on 07/06/25 10: 11 Immunizations Flucelvax [id number] (PF) 45 mcg (15 mcg x 3)/0.5 mL IM syringe Performing Provider: Colleen Villalobos DO Performing Location: [facility] Administered by: Krystyna Knapp on 07/06/25 10:09 2 Dose Route Admin Location Dispensed Lot Number Expiration Date Pack age NDC NDC Temporary Staff Accountant 0.5 mL IM Left Deltoid 0.5 mL [id number] 02/06/26 90686-292-79 [id number] [employer]. VIS Given Date VIS Provided VIS Publication [...] Arsenignjosep Signature: Date (if applicable) CC: ~ [facility] Work Phone: Progress note Author Aisha Vitale [facility] Note Date/Time July 21, 2025 1 0:58am [facility] [address] [place] [address], [address] [place] [address] OFFICE VISIT Date of Service: 07/21/25 MR#: [id number] Acct: [id number] Name: DEBI VERDUZCO Rep #: [id number] : 2000 Provider: CONCEPCION Vitale Age/Sex: 25/F Location: [facility] Status: Signed Intake Vital Signs 06/22/25 12:57 07/06/25 09:56 07/21/25 09:44 Height 5 ft 5 in 5 ft 5 in 5 ft 5 in Weight: 161 lb 1 oz BMI 26.8 BP 108/72 Intake Visit Reasons: 33 WK 6D OB Blow Pit Operator Required: No Is patient in pain?: No [...] children number of children: 1 current occupation: [employer] current occupational exposures/hazards: No pets and animals: [...] physical activity do you participate in: none dania/oriental orthodox: None seatbelt use: never do you feel safe at home: Yes additional social history: Boyfriend: Johny - Works at [employer] History 4 Elective abortions Hx Para 1 Spontaneous abortions 2 Hx # Term Pregnancies 1 Ectopic pregnancies Hx # Pregnancies Multiple births # of living children 1 Past Pregnancies Del. Date Name GA/Weeks Outcome Route Bth Weight Gen Labor Lgth Anesthesia Del Locatn Provider FOB 11/23/19 Nathalie 39 live - full term 6lbs 12oz Female epidural [facility] Johny 09/30/21 8 spontaneous 07/08/24 8 spontaneous [...] dates. accepts NIPT. had last baby at [facility]-no complications. KW- CRL cons with dates. acc epts NIPT. had last baby at [facility]-no complications. having significant nausea and vomiting. standing [...] 07/21/25 1009 <Electronically signed by Aisha oleary CALENDER MACHINE OPERATOR HELPER CALENDER MACHINE OPERATOR HELPER-C> Date _ Aisha Vitale NP CALENDER MACHINE OPERATOR HELPER-C Cosigner Signature: Date (if applicable) CC: ~ [facility] Work Phone: Reason for referral (narrative)No reason for referral information availableWAdena [facility] Work Phone: Reason for visit Narrative* Auth/Cert (Routine) Specialty Diagnoses / Procedures Referred By Kory t Referred To Contact Diagnoses Noninfective gastroenteritis and colitis, unspecified Procedures TN COLONOSCOPY FLX DX W/COLLJ SPEC WHEN PFRMD TN COLONOSCOPY W/BIOPSY SINGLE/MULTIPLE TN COLSC FLX W/REMOVAL LESION BY HOT BX FORCEPS TN COLSC FLX W/RMVL OF TUMOR POLYP LESION SNARE TQ [address] [address] Phone: tel: [phone] fax: Referral ID Status Reason Start Date Expiration Date Visits Re quested Visits Authorized [id number] 1 1 [facility] Work Phone: Summary Purpose Family History Grandmother [...] for Depo Inj. * Office Supply * [facility]: [id number] * Lot# [id number] * Exp: 10/30/2022 * Site: Right Buttock [...] Contact Diagnoses Generalized anxiety disorder Radha Cary, SERVICES ACCOUNT MANAGER-REMEDIATION CONSULTANT [address] [facility] [address] [place] [address] Referral ID Status Reason Start Date Expiration Date V isits Requested Visits Authorized [id number] Pending Review 10/30/2023 10/29/2024 1 1 Specialty Diagnoses / Procedures Referred By Kory islas Referred To Contact Gastroenterology Diagnoses Colitis Procedures Colonoscopy Diagnostic TN COLONOSCOPY FLX DX W/COLLJ SPEC WHEN PFRMD TN COLONOSCOPY W/BIOPSY SINGLE/MULTIPLE TN COLSC FLX W/RMVL OF TUMOR POLYP LESION SNARE TQ TN COLSC FLX W/REMOVAL LESION BY HOT BX FORCEPS Forrest Mohr MD [address] [place] [address] Referral ID Status Reason Start Date Expiration Date V isits Requested Visits Authorized [id number] Pending Review 01/30/2024 01/29/2025 1 1 Referral ID Status Reason Start Date Expiration Date V isits Requested Visits Authorized [id number] Authorized 01/30/2024 01/29/2025 1 1 Specialty Diagnoses / Procedures Referred By Contac t Referred To Contact Radiology Diagnoses Amenorrhea Procedures US OB transvaginal Jose Delgado MD [address] [facility], [address] [place] [address] Referral ID Status Reason Start Date Expiration Date Visits Requested Visits Authorized [id number] Authorized Perform Procedure 07/06/2024 07/06/2025 1 1 [...] section and content) DATE CREATED AUTHOR 05/20/2019 [facility] DATE CREATED AUTHOR AUTHOR'S ORGANIZ ATION 11/06/2022 [employer] DATE CREATED AUTHOR AUTHOR'S ORGANIZ ATION 01/01/2023 [facility] DATE CREATED AUTHOR AUTHOR'S ORGANIZ ATION 03/08/2023 [facility] DATE CREATED AUTHOR AUTHOR'S ORGANIZ ATION 07/09/2024 [facility] DATE CREATED AUTHOR AUTHOR'S ORGANIZ ATION 01/16/2025 [facility] DATE CREATED AUTHOR AUTHOR'S ORGANIZ ATION 02/07/2025 [facility] DATE CREATED AUTHOR AUTHOR'S ORGANIZ ATION 02/10/2025 [facility] DATE CREATED AUTHOR AUTHOR'S ORGANIZ ATION 06/15/2025 [facility] DATE CREATED AUTHOR AUTHOR'S ORGANIZ ATION 08/09/2025 [facility] <item><item><item><item><item> Privacy Markings (unrecogniz ed section and [...] Dr. Meena Us MD Attending Provider Active Lumber Stacker Operator Relationship Specialty Start Date End Date Radha Cary, SERVICES ACCOUNT MANAGER-REMEDIATION CONSULTANT [address] [address] PCP - General Family Medicine 12/31/22 Lumber Stacker Operator Relationship Specialty Start Date End Date Radha Cary, SERVICES ACCOUNT MANAGER-[facility] [address] [facility] [address] [place] [address] PCP - General Family Medicine 12/31/22 Lumber Stacker Operator Relationship Specialty Start Date End Date Radha Cary, SERVICES ACCOUNT MANAGER-[facility] [address] [place] [place] [address] PCP - General Family Medicine 12/31/22 Lumber Stacker Operator Relationship Specialty Start Date End Date Forrest Mohr MD [address] [place] [address] PCP - General Internal Medicine 01/30/24 Lumber Stacker Operator Relationship Specialty Start Date End Date Rahda Cary, SERVICES ACCOUNT MANAGER-REMEDIATION CONSULTANT [address] [address] PCP - General Family Medicine 01/31/24 Forrest Mohr MD [address] [place] [address] Surgeon Internal Medicine 01/30/24 Lumber Stacker Operator Relationship Specialty Start Date End Date Forrest Mohr MD [address] [place] [address] PCP - General Internal Medicine 03/12/24 Forrest Mohr MD [address] [place] [address] Surgeon Internal Medicine 01/30/24 Lumber Stacker Operator Relationship Specialty Start Date End Date Radha Cary CNP [address] [place] [address] PCP - General Internal Medicine 06/12/24 Lumber Stacker Operator Relationship Specialty Start Date End Date Forrest Mohr MD [address] [place] [address] PCP - General Internal Medicine 03/12/24 Forrest Mohr MD [address] [facility] [place] [address] Surgeon Internal Medicine 01/30/24 Lumber Stacker Operator Relationship Specialty Start Date End Date Forrest Mohr MD [address] [facility] [place] [address] PCP - General Internal Medicine 03/12/24 Forrest Mohr MD [address] [facility] [place] [address] Surgeon Internal Medicine 01/30/24 Team Status: Inactive [...] Status: Inactive Member Role Status Nicolle Cary CALENDER MACHINE OPERATOR HELPER-C Primary Care Provider Active Start: February 01, 2025 End: February 01, 2025 Radha Cary CALENDER MACHINE OPERATOR HELPER-C Referring Provider Active Sta rt: February 01, 2025 End: February 01, 2025 Mariajose Ayala CNM Attending Provider Active S tart: February 01, 2025 End: February 01, 2025 Team Status: Inactive Member Role Status Nicolle Cary CALENDER MACHINE OPERATOR HELPER-C Primary Care Provider Active Start: February 01, 2025 End: February 01, 2025 Mariajose Ayala CNM Attending Provider Active S tart: February 01, 2025 End: February 01, 2025 Mariajose Ayala CNM Referring Provider Active S tart: February 01, 2025 End: February 01, 2025 Team Status: Inactive Member Role Status Nicolle Cary CALENDER MACHINE OPERATOR HELPER-C Primary Care Provider Active Start: February 19, 2025 End: February 19, 2025 Radha Cary CALENDER MACHINE OPERATOR HELPER-C Referring Provider Active Sta rt: February 19, 2025 End: February 19, 2025 Dr. Colleen Villalobos , DO Attending Provider Activ e Start: February 19, 2025 End: February 19, 2025 Team Status: Inactive Member Role Status Nicolle Cary CALENDER MACHINE OPERATOR HELPER-C Primary Care Provider Active Start: February 24, 2025 End: February 24, 2025 Radha Cary CALENDER MACHINE OPERATOR HELPER-C Referring Provider Active Sta rt: February 24, 2025 End: February 24, 2025 Dr. Colleen Villalobos , DO Attending Provider Activ e Start: February 24, 2025 End: February 24, 2025 Team Status: Active Member Role Status Nicolle Cary CALENDER MACHINE OPERATOR HELPER-C Primary Care Provider Active Start: February 24, 2025 Dr. Colleen Villalobos , DO Attending Provider Activ e Start: February 24, 2025 Dr. Colleen Villalobos , DO Referring Provider Activ e Start: February 24, 2025 Team Status: Inactive Member Role Status Nicolle Cary CALENDER MACHINE OPERATOR HELPER-C Primary Care Provider Active Start: February 24, 2025 End: February 24, 2025 Dr. Colleen Villalobos DO Attending Provider Activ e Start: February 24, 2025 End: February 24, 2025 Dr. Colleen Villalobos DO Referring Provider Activ e Start: February 24, 2025 End: February 24, 2025 Team Status: Inactive Member Role Status Nicolle Cary CALENDER MACHINE OPERATOR HELPER-C Primary Care Provider Active Start: March 25, 2025 End: March 25, 2025 Radha Cary CALENDER MACHINE OPERATOR HELPER-C Referring Provider Active Sta rt: March 25, 2025 End: March 25, 2025 Aisha Vitale NP, CALENDER MACHINE OPERATOR HELPER-C Attending Provider Active Start: March 25, 2025 End: March 25, 2025 Team Status: Active Member Role/Relationship Status Nicolle Cary CALENDER MACHINE OPERATOR HELPER-C Primary Care Provider Active Team Status: Inactive Member Role/Relationship Status Nicolle Cary CALENDER MACHINE OPERATOR HELPER-C Primary Care Provider Active Start: January 05, 2025 End: January 05, 2025 Radha Cary CALENDER MACHINE OPERATOR HELPER-C Referring Provider Active Sta rt: January 05, 2025 End: January 05, 2025 Dr. Meena Us MD Attending Provider Active Start: January 05, 2025 End: January 05, 2025 Team Status: Active Member Role/Relationship Status Nicolle Cary CALENDER MACHINE OPERATOR HELPER-C Primary Care Provider Active Start: January 22, 2025 Tamar Chan RN Attending Provider Active St art: January 22, 2025 Team Status: Inactive Member Role/Relationship Status Nicolle Cary CALENDER MACHINE OPERATOR HELPER-C Primary Care Provider Active Start: January 28, 2025 End: January 28, 2025 Mariajose Ayala CNM Attending Provider Active S tart: January 28, 2025 End: January 28, 2025 Mariajose Ayala CNM Referring Provider Active S tart: January 28, 2025 End: January 28, 2025 Team Status: Inactive Member Role/Relationship Status Nicolle Cary CALENDER MACHINE OPERATOR HELPER-C Primary Care Provider Active Start: February 01, [...] Status: Inactive Member Role/Relationship Status Nicolle Cary CALENDER MACHINE OPERATOR HELPER-C Primary Care Provider Active Start: February 19, 2025 End: February 19, 2025 Radha Cary CALENDER MACHINE OPERATOR HELPER-C Referring Provider Active Sta rt: February 19, 2025 End: February 19, 2025 Dr. Colleen Villalobos , Attending Provider Activ e Start: February 19, 2025 End: February 19, 2025 Team Status: Inactive Member Role/Relationship Status Nicolle Cary CALENDER MACHINE OPERATOR HELPER-C Primary Care Provider Active Start: February 24, 2025 End: February 24, 2025 Radha Cary CALENDER MACHINE OPERATOR HELPER-C Referring Provider Active Sta rt: February 24, [...] End: March 25, 2025 Aisha Vitale NP CALENDER MACHINE OPERATOR HELPER-C Attending Provider Active Start: March 25, 2025 End: March 25, 2025 Team Status: Inactive Member Role/Relationship Status Nicolle Cary CALENDER MACHINE OPERATOR HELPER-C Primary Care Provider Active Start: April 23, 2025 End: April 23, 2025 Radha Cary CALENDER MACHINE OPERATOR HELPER-C Referring Provider Active Sta rt: April 23, 2025 End: April 23, 2025 Mariajose Jamie , CNM Attending Provider Active S tart: April 23, 2025 End: April 23, 2025 Team Status: Active Member Role/Relationship Status Dates Radha Cary CALENDER MACHINE OPERATOR HELPER-C Primary Care Provider Active Start: January 22, 2025 Tamar Chan RN Attending Provider Active St art: January 22, 2025 Team Status: Inactive Member Role/Relationship Status Nicolle Cary CALENDER MACHINE OPERATOR HELPER-C Primary Care Provider Active Start: January 28, 2025 End: January 28, 2025 Mariajose Ayala CNM Attending Provider Active S tart: January 28, 2025 End: January 28, 2025 Mariajose Ayala CNM Referring Provider Active S tart: January 28, 2025 End: January 28, 2025 Team Status: Inactive Member Role/Relationship Status Nicolle Cary CALENDER MACHINE OPERATOR HELPER-C Primary Care Provider Active Start: February 01, 2025 End: February 01, 2025 Radha Cary CALENDER MACHINE OPERATOR HELPER-C Referring Provider Active Sta rt: February 01, 2025 End: February 01, 2025 Mariajose Ayala CNM Attending Provider Active S tart: February 01, 2025 End: February 01, 2025 Team Status: Inactive Member Role/Relationship Status Nicolle Cary CALENDER MACHINE OPERATOR HELPER-C Primary Care Provider Active Start: February 01, 2025 End: February 01, 2025 Mariajose Ayala CNM Attending Provider Active S tart: February 01, 2025 End: February 01, 2025 Mariajose Ayala CNM Referring Provider Active S tart: February 01, 2025 End: February 01, 2025 Team Status: Inactive Member Role/Relationship Status Nicolle Cary CALENDER MACHINE OPERATOR HELPER-C Primary Care Provider Active Start: February 19, 2025 End: February 19, 2025 Radha Cary CALENDER MACHINE OPERATOR HELPER-C Referring Provider Active Sta rt: February 19, 2025 End: February 19, 2025 Dr. Colleen Villalobos , DO Attending Provider Activ e Start: February 19, 2025 End: February 19, 2025 Team Status: Inactive Member Role/Relationship Status Nicolle Cary CALENDER MACHINE OPERATOR HELPER-C Primary Care Provider Active Start: February 24, 2025 End: February 24, 2025 Radha Cary CALENDER MACHINE OPERATOR HELPER-C Referring Provider Active Sta rt: February 24, 2025 End: February 24, 2025 Dr. Colleen Villalobos , Attending Provider Activ e Start: February 24, 2025 End: February 24, 2025 Team Status: Inactive Member Role/Relationship Status Nicolle Cary CALENDER MACHINE OPERATOR HELPER-C Primary Care Provider Active Start: February 24, 2025 End: February 24, 2025 Dr. Colleen Villalobos , Attending Provider Activ e Start: February 24, 2025 End: February 24, 2025 Dr. Colleen Villalobos , Referring Provider Activ e Start: February 24, 2025 End: February 24, 2025 Team Status: Inactive Member Role/Relationship Status Nicolle Cary CALENDER MACHINE OPERATOR HELPER-C Primary Care Provider Active Start: March 25, 2025 End: March 25, 2025 Radha Cary CALENDER MACHINE OPERATOR HELPER-C Referring Provider Active Sta rt: March 25, 2025 End: March 25, 2025 Aisha Vitale NP, CALENDER MACHINE OPERATOR HELPER-C Attending Provider Active Start: March 25, 2025 End: March 25, 2025 Team Status: Inactive Member Role/Relationship Status Nicolle Cary CALENDER MACHINE OPERATOR HELPER-C Primary Care Provider Active Start: April 23, 2025 End: April 23, 2025 Radha Cary CALENDER MACHINE OPERATOR HELPER-C Referring Provider Active Sta rt: April 23, [...] Status: Active Member Role/Relationship Status Nicolle Cary CALENDER MACHINE OPERATOR HELPER-C Primary Care Provider Active Start: May 07, 2025 Mariajose Ayala CNM Attending Provider Active S tart: May 07, 2025 Mariajose Ayala CNM Referring Provider Active S tart: May 07, 2025 Mariajose Ayala CNM Other Provider Active Start : May 07, 2025 Team Status: Inactive Member Role/Relationship Status Nicolle Cary CALENDER MACHINE OPERATOR HELPER-C Primary Care Provider Active Start: May 20, 2025 End: May 20, 2025 Radha Cary CALENDER MACHINE OPERATOR HELPER-C Referring Provider Active Sta rt: May 20, [...] End: March 25, 2025 Aisha Vitale NP CALENDER MACHINE OPERATOR HELPER-C Attending Provider Active Start: March 25, 2025 [...] Status: Inactive Member Role/Relationship Status Nicolle Cary CALENDER MACHINE OPERATOR HELPER-C Primary Care Provider Active Start: May 07, [...] End: June 07, 2025 Aisha Vitale NP, CALENDER MACHINE OPERATOR HELPER-C Attending Provider Active Start: June 07, 2025 End: June 07, 2025 Team Status: Active Member Role/Relationship Status CONCEPCION Us Primary care physician Active Team Status: Inactive Member Role/Relationship Status CONCEPCION Us Primary care physician Active Start: March 25, 2025 End: March 25, 2025 ELAINE CaballeroC Referring Provider Active Sta rt: March 25, 2025 End: March 25, 2025 Aisha Vitale NP, CALENDER MACHINE OPERATOR HELPER-C Attending physician Active Start: March 25, 2025 [...] End: June 07, 2025 Aisha Vitale NP, CALENDER MACHINE OPERATOR HELPER-C Attending physician Active Start: June 07, 2025 [...] July 06, 2025 End: July 06, 2025 Lumber Stacker Operator Relationship Specialty Start Date End Date Radha Cary, SERVICES ACCOUNT MANAGER-REMEDIATION CONSULTANT [address] [facility] [address] [place] [address] PCP - General Family Medicine 01/31/24 03/11/24 Forrest Mohr MD [address] [facility] [place] [address] Surgeon Internal Medicine 01/30/24 Team Status: Inactive [...] 07, 2025 End: May 07, 2025 Mariajose Aylaa CNM Referring Provider Active S tart: May 07, 2025 End: May 07, 2025 Team Status: Active Member Role/Relationship Status Dates Radha Cary , CALENDER MACHINE OPERATOR HELPER-C Primary care physician Active Start: May 07, [...] June 07, 2025 End: June 07, 2025 Radha Cary CALENDER MACHINE OPERATOR HELPER-C Referring Provider Active Sta rt: June 07, 2025 End: June 07, 2025 Aisha Vitale NP CALENDER MACHINE OPERATOR HELPER-C Attending physician Active Start: June 07, 2025 [...] 2025 End: July 06, 2025 Radha Cary CALENDER MACHINE OPERATOR HELPER-C Referring Provider Active Sta rt: July 06, [...] End: July 21, 2025 Aisha Vitale NP CALENDER MACHINE OPERATOR HELPER-C Attending physician Active Start: July 21, 2025 [...] Diagnoses Noninfective gastroenteritis and colitis, unspecified Procedures TN COLONOSCOPY FLX DX W/COLLJ SPEC WHEN PFRMD TN COLONOSCOPY W/BIOPSY SINGLE/MULTIPLE TN COLSC FLX W/REMOVAL LESION BY HOT BX FORCEPS TN COLSC FLX W/RMVL OF TUMOR POLYP LESION SNARE [id number] [address] [facility] [address] [place] [address] [phone] Referral ID Status Reason Start Date Expiration Date Visits Re quested Visits Authorized [id number] 1 1 Reason Comments Amenorrhea Patient is [...] or prosecute any alcohol or drug abuse patient.[facility] FOR RECORDS PERTAINING TO PATIENTS WHO [...] BE BASED ON THE PRIMARY CLINICAL RECORDS. [facility]. provides no warranty or guarantee of the accuracy or completeness of information in this document.
[2025-08-18 11:55] LABS: AST(SGOT) 35 U/L (<=31); Alanine Aminotransfer ALT/SGPT 44 U/L (<=34); Albumin, Serum 3.5 g/dL (3.5-5.0); Alkaline Phosphatase 302 U/L (35-104); Anion Gap 13 (5-15); BUN 7 mg/dL (4-19); BUN/Creat Ratio 13.3 RATIO (10-20); Calcium,Total 9.4 mg/dL (7.6-11.0); Carbon Dioxide 20.0 mmol/L (21.0-32.0); Chloride 104 mmol/L (98-108); Globulin 3.5 g/dL (2.2-4.2); Glucose 140 mg/dL (70-99); Potassium 3.7 mmol/L (3.3-5.1)
[2025-08-18 12:07] LABS: Syphilis Antibodies Nonreactive (Nonreactive)
[2025-08-18] MEDS: Lactated Ringers 1,000 ML 999 ML IV (12:40)
--- NOTE | 2025-08-18 13:15 | PN_ITS ---
Progress Note Coping well with contractions current tracing: FHT: 140 Moderate variability reactive no decelerations category I tracing [place]: 2-4 minute Contractions Membranes:intact SVE:6/70/-2 Pitocin at 4mu Mello bulb out-desires epidural prior to AROM A/P: Continue with position changes Titrate pitocin per protocol Epidural per anesthesia GBS neg Anticipate Dr Us aware of above assessment and agrees with plan of care Assessment & Plan Assessment/Plan (1) Encounter for induction of labor: (2) Cholestasis during : (3) Pruritus of : (4) Uterine size-date discrepancy, third trimester: (5) History of miscarriage, currently : (6) Supervision of high-risk : QUALIFIERS: Trimester: third trimester Qualified Code(s): O09.93 - Supervision of high risk , unspecified, third trimester (7) : QUALIFIERS: Weeks of gestation: 37 weeks Qualified Code(s): Z3A.37 - 37 weeks gestation of (8) Anxiety and depression: Multi Select Codes Urinary/Genital Urinary/Genital CPT Codes: No Charge
[2025-08-18] MEDS: fentaNYL-bupivacaine (epidural) 100 ML BAG EPIDURAL ×2 (13:38→18:36)
--- NOTE | 2025-08-18 14:20 | PCM.PN.BLA ---
Progress Note comfortable with epidural current tracing: FHT: 130 Moderate variability reactive no decelerations category I tracing [place]: 2-3 Contractions Membranes:ruptured at 1420 SVE:7/70/-2 A/P: Continue with position changes Titrate pitocin per protocol Epidural per anesthesia GBS neg Anticipate Dr Us aware of above assessment and agrees with plan of care Assessment & Plan Assessment/Plan (1) Encounter for induction of labor: (2) Cholestasis during : (3) Pruritus of : (4) Uterine size-date discrepancy, third trimester: (5) History of miscarriage, currently : (6) Supervision of high-risk : QUALIFIERS: Trimester: third trimester Qualified Code(s): O09.93 - Supervision of high risk , unspecified, third trimester (7) : QUALIFIERS: Weeks of gestation: 37 weeks Qualified Code(s): Z3A.37 - 37 weeks gestation of (8) Anxiety and depression: Multi Select Codes Urinary/Genital Urinary/Genital CPT Codes: No Charge
--- NOTE | 2025-08-18 19:47 | OB.VAGDELI_ITS ---
Assessment & Plan (1) Vaginal delivery: COMMENT: IOL cholestasis Karine Marshallder (2) Encounter for induction of labor: (3) Cholestasis during : COMMENT: elevated bile acids, IOL at 37.6 (4) Pruritus of : COMMENT: liver enzymes pending-08/15 BP 05/07 (5) Uterine size-date discrepancy, third trimester: (6) History of miscarriage, currently : COMMENT: x2 (7) Supervision of high-risk : QUALIFIERS: Trimester: third trimester Qualified Code(s): O09.93 - Supervision of high risk , unspecified, third trimester COMMENT: PRR , MYRON 09/02/25,karine crenshaw PC: Nathalie, BF: Johny (8) : QUALIFIERS: Weeks of gestation: 37 weeks Qualified Code(s): Z3A.37 - 37 weeks gestation of COMMENT: NIPT low risk (9) Anxiety and depression: COMMENT: was on Lexapro - stopped awhile ago; stable Maternal Data Information MYRON Calculator Estimated Delivery Date Method Current WG Current Estimate 09/02/25 LMP (Certain) 37w 6d Other Estimates 09/02/25 Ultrasound #1 37w 6d 09/02/25 Ultrasound #2 37w 6d Final MYRON: 09/02/25 Final MYRON Source: US >20 weeks Gestational age: 37.6 Vaginal Delivery Maternal Presentation Maternal Presentation: Medically Indicated Induction Maternal Presentation: Presented to unit for induction of labor for cholestasis at 37.6 weeks Type of Induction: Pitocin and Amniotomy Medical Reason for Induction: Compromise: list: (Cholestasis) Vaginal Delivery Information Procedure Performed: Spontaneous Vaginal Delivery Surgeon/Practitioner: Mariajose Ayala Date of Procedure: 08/18/25 Pre-Procedure Diagnosis: see problem list Post-Procedure Diagnosis: same Type of anesthesia: Epidural Estimated Blood Loss: 100 Time of Delivery: 19:36 Findings Description of procedure: Progressed well to 10cm dilated and made steady progress with effective maternal pushing. Delivered the head in SURYA presentation. The head was delivered atraumatically and no nuchal cord was identified. The anterior and posterior shoulders delivered without complication followed by the rest of the and the infant was placed on the maternal abdomen. Delayed cord clamping was employed for approximately 3 minutes. Cord was clamped and cut and gentle traction was applied to the cord and the placenta delivered spontaneously. Immediately following, it was noted to be intact with a 3 vessel cord. Uterine bleeding stable. The perineum and vagina were inspected and noted to have no laceration. EBL was 100cc. Patient and infant tolerated delivery well. Apgars 8/9. Dr Us notified of vaginal delivery and orders reviewed. Physician agrees with current plan of care. 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
--- NOTE | 2025-08-18 19:56 | DCINST_ITS ---
Discharge Instructions DC O2, CPAP, BIPAP needs Home O2 Discharge instructions: No Dressing / Incision Discharge Activity: Return to Normal Activity May resume sexual activity in: 6-8 weeks Dressing / Incision Call your doctor if you observe: Fever of 101 or Higher, Coldness, Increased Pain, Numbness or Tingling, Change in Color, Inability to urinate, Inability to have a bowel movement, Using more than 1 pad per hour, Shortness of breath, Dizziness, Fainting spells, Swelling in the ankles, Chest pain, Increased palpitations (irregular heartbeat), Calf discomfort and Uncontrolled pain Follow Up Care Please Follow Up With: Mariajose Ayala CNM When: Please call the office to schedule your follow up appointment in 6 weeks. If you had high blood pressure please call to schedule an appointment in 2 weeks. Test Results: Test results from this visit will be discussed in further detail at your follow- up appointment, if applicable. Discharge Plan Admission Admit Date/Time: 08/18/25 09:50 Attending Provider: Mariajose Ayala Primary Care Provider: Radha Resendiz Discharge Orders/Prescriptions Prescriptions: No Action Vitamin 27 mg iron- 800 mcg tablet 1 tab PO QDAY famotidine [Pepcid] 20 mg tablet 20 mg PO QDAY Qty: 30 2RF ferrous gluconate 324 mg (38 mg iron) tablet 324 mg PO QDAY 90 Days Qty: 90 3RF ursodiol 300 mg capsule 300 mg PO BID Qty: 30 0RF Referrals / Follow Up: Radha Resendiz, SHERE[facility]-C [Primary Care Provider, Family Practice]
[2025-08-18] MEDS: Oxytocin 15 Units/NS 250ml 15 UNITS/250 ML IV.SOLN 83 UNITS IV (20:11)
[2025-08-19 00:42] VITALS: BP 121/74; PULSE 77; RESP 16; TEMP 36.3; O2SAT 97
[2025-08-19 04:42] VITALS: BP 113/69; PULSE 94; RESP 16; TEMP 36.6; O2SAT 99
--- NOTE | 2025-08-19 07:37 | PCM.PN.BLA ---
Progress Note Patient doing well without complaints. Tolerating PO. Ambulating and voiding without difficulty. Feeding well. Denies chest pain, shortness of breath, calf pain/swelling, fevers, chills, lightheadedness. Physical Exam Const alert General Appearance: comfortable and well developed Orientation / Consciousness: awake Resp normal respiratory effort Effort and Inspection: able to speak in complete sentences Cardio regular rate and regular rhythm GI Palpation: soft and other Other Details: uterus firm below umbilicus Assessment & Plan Assessment/Plan (1) Vaginal delivery: PLAN: s/p PPD # 1 1. routine post delivery care - no lacerations 2. breast feeding- support given 3. rh positive 4. rubella immune 5. baby boy (2) Anxiety and depression: PLAN: Controlled without medication
[2025-08-19 08:30] VITALS: BP 114/80; PULSE 79; RESP 16; TEMP 36.3
[2025-08-19 11:20] VITALS: BP 111/71; PULSE 92; RESP 16
[2025-08-19 16:15] VITALS: BP 104/65; PULSE 85; RESP 16
[2025-08-19 20:01] VITALS: BP 118/78; PULSE 91; RESP 16; TEMP 36.1; O2SAT 99
[2025-08-20 02:00] VITALS: BP 112/78; PULSE 63; RESP 16; TEMP 36.2; O2SAT 98
--- NOTE | 2025-08-20 07:58 | PCM.PN.OB ---
Subjective Subjective Patient doing well without complaints. Tolerating PO. Ambulating and voiding without difficulty. Feeding well. Denies chest pain, shortness of breath, calf pain/swelling, fevers, chills, lightheadedness. Objective Data Objective Data Vital Signs: Vital Signs Temp Pulse Resp BP Pulse Ox O2 Del Method 97.1 F L 63 16 112/78 98 Room Air 08/20/25 02:00 08/20/25 02:00 08/20/25 02:00 08/20/25 02:00 08/20/25 02:00 08/20/25 02:00 Oxygen Delivery Method Room Air Weight: 165 lb Body Mass Index (BMI) 27.4 Intake & Output: Intake and Output for Last 24 Hours 08/18/25 08/19/25 08/20/25 23:59 23:59 23:59 Intake Total 3072.60 / 3072.60 250 / 250 Output Total 100 / 100 1200 / 1200 Balance 2972.60 / 2972.60 -950 / -950 Lab / Micro Data 08/18/25 10:30 08/18/25 10:30 ROS Constitutional Constitutional: Denies chills, fatigue, fever(s), poor appetite or weakness Eyes Eyes: Denies blurry vision, change in vision, seeing flashes or spots in vision ENT HEENT: Denies dizziness, headache(s), loss taste/smell or sore throat Cardiovascular Cardiovascular: Denies chest pain, dizziness, dyspnea, irregular heart rhythm, palpitations or rapid heart rate Respiratory/Chest Respiratory/Chest: Denies chest tightness, cough, dyspnea or breast pain Gastrointestinal Gastrointestinal: Denies abdominal pain, constipation or vomiting Genitourinary Genitourinary: Denies dysuria or flank pain Musculoskeletal Musculoskeletal: Denies difficulty walking, joint pain, limited range of motion or numbness Neurologic Neurologic: Denies abnormal movements, abnormal speech, dizziness, numbness, seizure-like activity or syncope Psychiatric Psychiatric: Denies anxiety, behavioral changes, change in appetite, confusion, depression or suicidal thoughts Physical Exam Const alert, oriented x3 and no apparent distress General Appearance: cooperative and comfortable Resp normal respiratory effort Cardio regular rate GI normal to inspection, nondistended, normoactive bowel sounds GI Narrative: uterus is firm below umbilicus Palpation: soft Back/Spine no CVA tenderness and thoraco-lumbar ROM normal Extremity normal to inspection, no clubbing, cyanosis or edema, no calf tenderness and no pedal edema Psych mental status grossly normal, thought process normal, cooperative, affect normal, speech normal, activity/motor behavior normal, denies homicidal ideation and denies suicidal ideation Assessment & Plan (1) Vaginal delivery: COMMENT: IOL cholestasis Boy Mic (2) Encounter for induction of labor: (3) Cholestasis during : COMMENT: elevated bile acids, IOL at 37.6 PLAN: Plan s/p PPD # 2 1. routine post delivery care 2. breast feeding- support given 3. rh positive 4. rubella immune
[2025-08-20 08:05] VITALS: BP 116/70; PULSE 93; RESP 16; TEMP 36.3; O2SAT 98
--- NOTE | 2025-08-24 17:33 | NURSING ---
F/up call attempted, no ans, unable to LVM
== END 2025-08-20 10:15 | disposition home or self-care (01) | DRG 560 ==
PROVIDERS: Admitting Provider Advanced Practice Midwife; PCP Nurse Practitioner Family; Referring Provider Advanced Practice Midwife; Visit Provider Advanced Practice Midwife
DX: O26.62 Liver and biliary tract disorders in childbirth (principal); Z37.0 Single live birth; K83.1 Obstruction of bile duct; F32.A Depression, unspecified; F17.290 Nicotine dependence, other tobacco product, uncomplicated; F41.9 Anxiety disorder, unspecified; O99.344 Other mental disorders complicating childbirth; O99.62 Diseases of the digestive system complicating childbirth; O99.334 Smoking (tobacco) complicating childbirth; Z87.59 Personal history of other complications of pregnancy, childbirth and the puerperium; Z3A.37 37 weeks gestation of pregnancy
CPT/HCPCS: 36415; 59025; 59050; 76819; 80053; 85025; 86780; 86850; 86900; 86901; 99221; G0378; J2405